=== PATIENT | female | born 1970 | race Caucasian/White ===

== ENCOUNTER 2023-06-20 14:20 | Outpatient (OUT) | payer BC, SELFPAY ==
[2023-06-20 15:00] LABS: Creatinine Urine Random 109.18 mg/dL (20.00-300.00); Microalbum Creatinine Ratio Ur 11.9 mg/g (0.0-29.9); Microalbumin Urine Random <1.3 mg/dL (<=30.0)
[2023-06-20 15:01] LABS: Basophils Percent Auto 0.4 % (0.2-2.0); Eosinophils Absolute Auto 0.1 10^3/uL (0.0-0.7); Eosinophils Percent Auto 1.5 % (0.9-7.0); Hematocrit 37.9 % (36.0-48.0); Hemoglobin 12.8 g/dL (12.0-16.0); Immature Granulocytes Abs Auto 0.03 10^3/uL (0.00-0.03); Immature Granulocytes Pct Auto 0.3 % (0.0-0.5); Lymphocytes Absolute Auto 2.9 10^3/uL (1.2-3.8); Lymphocytes Percent Auto 30.5 % (20.5-60.0); Mean Corpuscular HGB Conc 33.8 g/dL (29.9-35.2); Mean Corpuscular Hemoglobin 30.6 pg (26.7-34.0); Mean Corpuscular Volume 90.7 fL (81.0-99.0); Monocytes Absolute Auto 0.6 10^3/uL (0.3-0.8); Monocytes Percent Auto 5.7 % (1.7-12.0); Neutrophils Absolute Auto 5.9 10^3/uL (1.4-6.5); Neutrophils Percent Auto 61.6 % (43.0-75.0); Platelet Count 278 10^3/uL (150-450); Red Blood Count 4.18 10^6/uL (4.20-5.40); Red Cell Distribution Width 13.2 % (11.0-15.0); White Blood Count 9.6 10^3/uL (4.0-11.0)
[2023-06-20 15:11] LABS: Bilirubin Urine NEGATIVE (NEGATIVE); Blood Urine NEGATIVE (NEGATIVE); Clarity Urine CLEAR (CLEAR); Color Urine YELLOW (YELLOW); Glucose Urine UA NEGATIVE (NEGATIVE); Ketones Urine NEGATIVE (NEGATIVE); Leukocyte Esterase Urine TRACE (NEGATIVE); Nitrite Urine NEGATIVE (NEGATIVE); Protein Urine NEGATIVE (NEG/TRACE); Urobilinogen Urine 0.2 EU/dL (0.2-1.0); pH Urine 5.5 (5.0-9.0)
[2023-06-20 15:22] LABS: Urine Microscopic Indicated YES
[2023-06-20 15:23] LABS: Bacteria Urine MODERATE #/HPF (NONE SEEN); Mucus Urine TRACE (NONE SEEN); RBC Urine NONE SEEN #/HPF (0-2); Squamous Epithelial Cell Urine MODERATE #/LPF (NONE/RARE)
[2023-06-20 15:24] LABS: Urine Culture Indicated YES
[2023-06-20 15:56] LABS: Alanine Aminotransferase 29 U/L (14-59); Albumin Level 3.7 g/dL (3.4-5.0); Alkaline Phosphatase 92 U/L (46-116); Anion Gap 14.6; Aspartate Amino Transferase 22 U/L (15-37); BUN Creatinine Ratio 15.8; Bilirubin Total 0.4 mg/dL (0.2-1.0); Calcium 9.2 mg/dL (8.5-10.1); Chloride 104 mmol/L (98-107); Chol HDL Ratio 4.7; Cholesterol 226 mg/dL (<=200); Estimated GFR (African America >60 (>=60); Estimated GFR (Non-African Ame >60 (>=60); Globulin 3.6 g/dL; Glucose 79 mg/dL (74-106); HDL Cholesterol 48 mg/dL (40-60); Potassium 3.6 mmol/L (3.5-5.1); Sodium 142 mmol/L (136-145); Total Protein 7.3 g/dL (6.4-8.2); Triglycerides 227 mg/dL (<=150); VLDL CHOLESTEROL 45.4 mg/dL
[2023-06-20 16:21] LABS: Free T4 0.83 ng/dL (0.76-1.46)
== END 2023-06-20 14:21 | disposition home or self-care (01) ==
LOC: LAB 14:26
PROVIDERS: PCP Nurse Practitioner; Visit Provider Nurse Practitioner
DX: K21.00 Gastro-esophageal reflux disease with esophagitis, without bleeding (principal); E78.2 Mixed hyperlipidemia; E55.9 Vitamin D deficiency, unspecified; E03.9 Hypothyroidism, unspecified; I10 Essential (primary) hypertension; I73.9 Peripheral vascular disease, unspecified
CPT/HCPCS: 36415; 80053; 80061; 81001; 82043; 82306; 82570; 84439; 84443; 85025; 87086

== ENCOUNTER 2023-07-31 12:55 | Outpatient (OUT) | payer BC, SELFPAY ==
--- NOTE | 2023-07-31 13:00 | MM_ITS ---
Patient Name: CARYN VALERO MR#: [id number] : 1970 Exam Date: 07/31/2023 Ordering Doctor: QUINTEN Ridley CNP RADIOLOGY REPORT PROCEDURE: MM TOMOSYNTHESIS SCREENING BI COMPARISON: MG MAMM SCREEN 3D RENETTA CAD, 07/13/2022. MG MAMM SCREEN RENETTA W CAD, 02/13/2020. INDICATIONS: screening Calculator Name NCI Breast Cancer Risk Assessment Tool 5 Year Breast Cancer Risk 0.70% Lifetime Breast Cancer Risk 6.50% Personal Breast Cancer No Personal Ovarian Cancer No Treatments None Family Cancers Grandmother-paternal with colon cancer at age 76; Uncle-paternal with pancreas/lung cancer at age 50. LOCATION: [facility] BREAST COMPOSITION: Heterogeneously dense,which may obscure small masses. FINDINGS: DIAGNOSTIC CATEGORY 2--BENIGN FINDING. NO CHANGE FROM COMPARISON. Scattered benign-appearing calcifications are present. Scattered benign-appearing lymph nodes are present. RIGHT BREAST: No significant suspicious finding. LEFT BREAST: No significant suspicious finding. RECOMMENDATIONS: ROUTINE MAMMOGRAM AND CLINICAL EVALUATION IN 12 MONTHS. PLEASE NOTE: A NORMAL MAMMOGRAM DOES NOT EXCLUDE THE POSSIBILITY OF BREAST CANCER. A CLINICALLY SUSPICIOUS PALPABLE LUMP SHOULD BE BIOPSIED. Dictated by: Rodolfo Ann MD on 07/31/2023 at 15:25 Approved by: Rodolfo Ann MD on 07/31/2023 at 15:26
== END 2023-07-31 12:56 | disposition home or self-care (01) ==
LOC: MAMMO 12:56
PROVIDERS: PCP Nurse Practitioner; Visit Provider Nurse Practitioner
DX: Z12.31 Encounter for screening mammogram for malignant neoplasm of breast (principal); Z80.0 Family history of malignant neoplasm of digestive organs; Z80.1 Family history of malignant neoplasm of trachea, bronchus and lung
CPT/HCPCS: 77063; 77067

== ENCOUNTER 2024-01-23 14:18 | Outpatient (OUT) | payer BC, SELFPAY ==
[2024-01-23 14:47] LABS: Basophils Percent Auto 0.6 % (0.2-2.0); Eosinophils Absolute Auto 0.1 10^3/uL (0.0-0.7); Eosinophils Percent Auto 1.3 % (0.9-7.0); Hematocrit 41.3 % (36.0-48.0); Hemoglobin 13.6 g/dL (12.0-16.0); Immature Granulocytes Abs Auto 0.01 10^3/uL (0.00-0.03); Immature Granulocytes Pct Auto 0.1 % (0.0-0.5); Lymphocytes Absolute Auto 2.8 10^3/uL (1.2-3.8); Lymphocytes Percent Auto 39.9 % (20.5-60.0); Mean Corpuscular HGB Conc 32.9 g/dL (29.9-35.2); Mean Corpuscular Hemoglobin 31.1 pg (26.7-34.0); Mean Corpuscular Volume 94.3 fL (81.0-99.0); Mean Platelet Volume 8.8 fL (9.5-13.5); Monocytes Absolute Auto 0.5 10^3/uL (0.3-0.8); Monocytes Percent Auto 6.3 % (1.7-12.0); Neutrophils Absolute Auto 3.7 10^3/uL (1.4-6.5); Neutrophils Percent Auto 51.8 % (43.0-75.0); Platelet Count 242 10^3/uL (150-450); Red Blood Count 4.38 10^6/uL (4.20-5.40); Red Cell Distribution Width 12.4 % (11.0-15.0); White Blood Count 7.1 10^3/uL (4.0-11.0)
[2024-01-23 15:26] LABS: Alanine Aminotransferase 51 U/L (14-59); Albumin Globulin Ratio 1.2; Albumin Level 3.8 g/dL (3.4-5.0); Alkaline Phosphatase 87 U/L (46-116); Anion Gap 8.4; Aspartate Amino Transferase 30 U/L (15-37); BUN Creatinine Ratio 17.1; Bilirubin Total 0.6 mg/dL (0.2-1.0); Calcium 9.2 mg/dL (8.5-10.1); Carbon Dioxide 30.2 mmol/L (21.0-32.0); Chloride 103 mmol/L (98-107); Chol HDL Ratio 4.3; Cholesterol 210 mg/dL (<=200); Estimated GFR (African America >60 (>=60); Estimated GFR (Non-African Ame >60 (>=60); Globulin 3.2 g/dL; Glucose 91 mg/dL (74-106); HDL Cholesterol 49 mg/dL (40-60); Potassium 3.6 mmol/L (3.5-5.1); Sodium 138 mmol/L (136-145); Thyroid Stimulating Hormone 2.376 uIU/mL (0.358-3.740); Triglycerides 144 mg/dL (<=150); VLDL CHOLESTEROL 28.8 mg/dL
[2024-01-23 15:38] LABS: Free T4 0.85 ng/dL (0.76-1.46)
== END 2024-01-23 14:19 | disposition home or self-care (01) ==
LOC: LAB 14:19
PROVIDERS: PCP Nurse Practitioner; Visit Provider Nurse Practitioner
DX: I10 Essential (primary) hypertension (principal); E03.9 Hypothyroidism, unspecified; I73.9 Peripheral vascular disease, unspecified; E55.9 Vitamin D deficiency, unspecified
CPT/HCPCS: 36415; 80053; 80061; 82306; 84439; 84443; 85025

== ENCOUNTER 2024-01-30 12:58 | Outpatient (OUT) | payer BC, SELFPAY ==
--- NOTE | 2024-01-30 13:00 | VEIN_ITS ---
The [address] [address] Patient Name: CARYN VALERO MRN: [id number] date: 1970 Sex: F Assigned Patient Location: Current Patient Location: LAB Accession/Order Number: [id number] Exam Date: 01/30/2024 13:01 Report Date: 01/30/2024 14:31 At the request of: SHAWN GRAHAM Procedure: VC SEGMENTAL PRESSURES EXAM: VC SEGMENTAL PRESSURES HISTORY: I73.9. Peripheral vascular disease. COMPARISON: None. TECHNIQUE: Segmental pressures were obtained with ABIs. FINDINGS: Right DALTON 1.09. Left DALTON 1.15. No pressure gradients were noted. Toe brachial indices are normal. VEIN/VC SEGMENTAL PRESSURES IMPRESSION: Normal resting ABIs. No pressure gradients noted. Electronically authenticated by: Morenita WHITING Date: 01/30/2024 14:31
--- OUTSIDE RECORDS SUMMARY | 2024-01-30 13:12 | XMS_ITS | CCD ---
Author Organization [facility] Care Team Providers Care Relief Map Modeler Name Role Phone Joyce BENEFITS REPRESENTATIVE, Stephany R Unavailable Joyce BENEFITS REPRESENTATIVE, Stephany R Primary Care Provider Ting Camilo MD Unavailable Aichholz BENEFITS REPRESENTATIVE, Renetta Rosemary Primary Care Provider [phone] Joyce BENEFITS REPRESENTATIVE, Stephnay R Unavailable Ting Camilo MD Unavailable Aichholz BENEFITS REPRESENTATIVE, Renetta Rosemary Primary Care Provider [phone] Joyce BENEFITS REPRESENTATIVE, Stephany R Unavailable Aichholz BENEFITS REPRESENTATIVE, Renetta Rosemary Primary Care Provider [phone] Joyce BENEFITS REPRESENTATIVE, Stephany R Unavailable Torres [place], Ting Tim Unavailable Aichholz BENEFITS REPRESENTATIVE, Renetta Rosemary Primary Care Provider Aichholz, Renetta J Primary Care Provider DO Terrell Mc Emergency Provider BARNEY Lala Emergency Provider DR GURMEET PUGH V Consulting Unavailable AICHHOLZ, BENEFITS REPRESENTATIVE RENETTA Primary Care Unavailable AICHHOLZ, BENEFITS REPRESENTATIVE RENETTA Attending Unavailable AICHHOLZ, BENEFITS REPRESENTATIVE RENETTA Admitting Unavailable AICHHOLZ, BENEFITS REPRESENTATIVE RENETTA Consulting Unavailable AICHHOLZ, BENEFITS REPRESENTATIVE RENETTA Consulting Unavailable AICHHOLZ, BENEFITS REPRESENTATIVE RENETTA Primary Care Unavailable AICHHOLZ, BENEFITS REPRESENTATIVE RENETTA Attending Unavailable AICHHOLZ, BENEFITS REPRESENTATIVE RENETTA Admitting Unavailable DR GURMEET PUGH V Consulting Unavailable AICHHOLZ, BENEFITS REPRESENTATIVE RENETTA Primary Care Unavailable AICHHOLZ, BENEFITS REPRESENTATIVE RENETTA Attending Unavailable AICHHOLZ, BENEFITS REPRESENTATIVE RENETTA Admitting Unavailable AICHHOLZ, BENEFITS REPRESENTATIVE RENETTA Consulting Unavailable DR GURMEET PUGH V Consulting Unavailable AICHHOLZ, BENEFITS REPRESENTATIVE RENETTA Primary Care Unavailable AICHHOLZ, BENEFITS REPRESENTATIVE RENETTA Attending Unavailable AICHHOLZ, BENEFITS REPRESENTATIVE RENETTA Admitting Unavailable AICHHOLZ, BENEFITS REPRESENTATIVE RENETTA Consulting Unavailable AICHHOLZ, BENEFITS REPRESENTATIVE RENETTA Consulting Unavailable AICHHOLZ, BENEFITS REPRESENTATIVE RENETTA Primary Care Unavailable AICHHOLZ, BENEFITS REPRESENTATIVE RENETTA Attending Unavailable AICHHOLZ, BENEFITS REPRESENTATIVE RENETTA Admitting Unavailable DR FIOR TORRES Consulting Unavailable AICHHOLZ, BENEFITS REPRESENTATIVE RENETTA Consulting Unavailable AICHHOLZ, BENEFITS REPRESENTATIVE RENETTA Primary Care Unavailable AICHHOLZ, BENEFITS REPRESENTATIVE RENETTA Attending Unavailable AICHHOLZ, BENEFITS REPRESENTATIVE RENETTA Admitting Unavailable DR FIOR TORRES Consulting Unavailable AICHHOLZ, BENEFITS REPRESENTATIVE RENETTA Consulting Unavailable AICHHOLZ, BENEFITS REPRESENTATIVE RENETTA Primary Care Unavailable AICHHOLZ, BENEFITS REPRESENTATIVE RENETTA Attending Unavailable AICHHOLZ, BENEFITS REPRESENTATIVE RENETTA Admitting Unavailable AICHHOLZ, BENEFITS REPRESENTATIVE RENETTA Consulting Unavailable AICHHOLZ, BENEFITS REPRESENTATIVE RENETTA Primary Care Unavailable AICHHOLZ, BENEFITS REPRESENTATIVE RENETTA Attending Unavailable AICHHOLZ, BENEFITS REPRESENTATIVE RENETTA Admitting Unavailable AICHHOLZ, BENEFITS REPRESENTATIVE RENETTA Consulting Unavailable AICHHOLZ, BENEFITS REPRESENTATIVE RENETTA Primary Care Unavailable AICHHOLZ, BENEFITS REPRESENTATIVE RENETTA Referring Unavailable AICHHOLZ, BENEFITS REPRESENTATIVE RENETTA Attending Unavailable AICHHOLZ, BENEFITS REPRESENTATIVE RENETTA Admitting Unavailable AICHHOLZ, BENEFITS REPRESENTATIVE RENETTA Consulting Unavailable AICHHOLZ, BENEFITS REPRESENTATIVE RENETTA Primary Care Unavailable AICHHOLZ, BENEFITS REPRESENTATIVE RENETTA Referring Unavailable AICHHOLZ, BENEFITS REPRESENTATIVE RENETTA Attending Unavailable AICHHOLZ, BENEFITS REPRESENTATIVE RENETTA Admitting Unavailable ANH LÓPEZ Consulting Unavailable ANH LÓPEZ Attending Unavailable ANH LÓPEZ Admitting Unavailable AICHHOLZ, BENEFITS REPRESENTATIVE RENETTA Primary Care Unavailable Timmy Chavez Unavailable AICHHOLZ, RENETTA ROSEMARY Primary Care Unavailable TING CAMILO Attending Unavailable AICHHOLZ, RENETTA ROSEMARY Primary Care Unavailable MILER, FERMIN Referring Unavailable AICHHOLZ, RENETTA ROSEMARY Primary Care Unavailable MILER, FERMIN Referring Unavailable AICHHOLZ, RENETTA ROSEMARY Primary Care Unavailable AICHHOLZ, RENETTA ROSEMARY Primary Care Unavailable VALENTINA SINGLETARY Attending Unavailable AICHHOLZ, RENETTA ROSEMARY Primary Care Unavailable TING CAMILO Referring Unavailable KARTHIK ZARATE Attending Unavailab le AICHHOLZ, RENETTA ROSEMARY Primary Care Unavailable AICHHOLZ, RENETTA ROSEMARY Referring Unavailable BRAD BONE JR Attending Unavailable AICHHOLZ, RENETTA ROSEMARY Primary Care Unavailable AICHHOLZ, RENETTA ROSEMARY Primary Care Unavailable FERMIN BEGUM Referring Unavailable AICHHOLZ, RENETTA ROSEMARY Primary Care Unavailable AICHHOLZ, RENETTA ROSEMARY Primary Care Unavailable TING CAMILO Referring Unavailable AICHHOLZ, RENETTA ROSEMARY Primary Care Unavailable TING CAMILO Attending Unavailable VIK SUTHERLAND Referring Unavailable VIK SUTHERLAND Attending Unavailable JOYCE, STEPHANY R Primary Care Unavailable FABIEN GONZALEZ Attending Unavailable AICHHOLZ, RENETTA ROSEMARY Primary Care Unavailable AICHHOLZ, RENETTA ROSEMARY Primary Care Unavailable AICHHOLZ, RENETTA ROSEMARY Primary Care Unavailable YANELIS FRENCH Attending Unavailable FABIEN GONZALEZ Referring Unavailable KOKO, VIK Referring Unavailable JOYCE, STEPHANY R Primary Care Unavailable TING CAMILO Attending Unavailable AICHHOLZ, RENETTA ROSEMARY Primary Care Unavailable MIKEY PALOMO Referring Unavailable AICHHOLZ, RENETTA ROSEMARY Primary Care Unavailable MIKEY PALOMO Attending Unavailable TING CAMILO Referring Unavailable AICHHOLZ, RENETTA ROSEMARY Primary Care Unavailable AICHHOLZ, RENETTA ROSEMARY Primary Care Unavailable FABIEN GONZALEZ Referring Unavailable AICHHOLZ, RENETTA ROSEMARY Primary Care Unavailable CARMEN LOMBARDI Attending Unavailable AICHHOLZ, RENETTA ROSEMARY Primary Care Unavailable FERMIN BEGUM Referring Unavailable AICHHOLZ, RENETTA ROSEMARY Primary Care Unavailable AICHHOLZ, RENETTA ROSEMARY Referring Unavailable FERMIN BEGUM Attending Unavailable Joyce SHIPLEY, Stephany R Primary Care Provider Keyur Quarles MD Primary Care Provider [phone] Khai CUSTOMER SERVICE DISPATCHER, Renetta Unavailable Khai, Renetta J Primary Care Provider DEMETRIS Sofia Emergency Provider [phone] Jose Sofia Attending Unavailable Jose Sofia Admitting Unavailable Aichholz, Renetta J Primary Care Unavailable Aichholz DEMETRIS-QUINTEN, Renetta Rosemary Primary Care Provider MIKEY WARE Attending Unavailable RENETTA RIDLEY Primary Care Unavailable RENETTA RIDLEY Attending Unavailable RENETTA RIDLEY Attending Unavailable RENETTA RIDLEY Attending Unavailable RENETTA RIDLEY Attending Unavailable Allergies Allergy Classification Reported Allergen(s) Allergy Type Date of Onset Reaction(s) Facility (20 sources) amLODIPine; Translations: [AMLODIPINE] Drug Allergy 0 Swelling [facility] (10 sources) Penicillins; Translations: [PENICILLINS] Propensity to adverse reactions 2 Rash [facility] Work Phone: (20 sources) Penicillins Propensity to adverse reactions 2 [facility] Work Phone: (1 source) amLODIPine Drug Allergy 1 [facility] (1 source) Penicillins Drug allergy (disorder) 3 [facility] Repository (4 sources) penicillAMINE Drug Allergy 4 Unknown, Unknown Reaction [facility] (4 sources) buPROPion Drug Allergy 4 GI intolerance [facility] Work Phone: (4 sources) Penicillins Propensity to adverse reactions 3 [facility] (4 sources) venlafaxine Drug Allergy 4 GI intolerance [facility] (1 source) amLODIPine Drug Allergy [address] [facility] Repository (1 source) penicillAMINE Drug Allergy [address] [facility] Repository (1 source) Penicillins Drug allergy (disorder) [address] [facility] Repository Medications Current Medications Medication Drug Class(es) Dates Sig (Normalized) Sig (Original) ALPRAZolam 0.5 mg oral tablet (20 sources) Benzodiazepine Start: 06-20-2023 End: 07-20-2023 take 1 tablet by mouth twice daily as needed ALPRAZolam (Xanax) 0.5 mg tablet Take 1 tablet (0.5 mg) by mouth 2 times a day as needed. 06/20/2023 Active Start: 08-23-2021 take 1 tablet by [place] three times daily Alprazolam (Xanax) 0.5 mg Tablet Active 0.5 MG PO Three times daily August 23, 2021 12:00am Comment on above: Take 0.5 mg by mouth three times daily as needed. aspirin 81 mg delayed release oral tablet (20 sources) Platelet Aggregation Inhibitor, Nonsteroidal Anti-inflammatory Drug Start: 04-06-2020 End: 06-20-2023 take 81 mg by mouth once daily Aspirin Active 81 MG PO Daily April 06, 2020 1:00am Aspirin 81 Activ e Comment on above: Take 81 mg by mouth once daily. atorvastatin 40 mg oral tablet (20 sources) HMG-CoA Reductase Inhibitor Start: 02-29-20 End: 06-20-19 take 40 mg by mouth once daily Atorvastatin Active 40 MG PO Daily February 28, 2019 12:00am Comment on above: Take 1 tablet by [place] daily at bedtime. cholecalciferol 0.025 mg oral capsule (20 sources) Vitamin D Start: 03-04-20 take 1 capsule by mouth once daily Cholecalciferol (Vitamin D3) (Vitamin D3) 1,000 unit Capsule Active 1000 UNIT PO Daily March 04, 2019 12:00am take 1 capsule by mouth once [place] cholecalciferol (Vitamin D-3) 25 MCG (1000 UT) tablet Take 1 capsule by mouth once daily. Active Comment on above: Take 1 capsule [facility] once daily. clopidogrel 75 mg oral tablet (20 sources) P2Y12 Platelet Inhibitor Start: 9 End: 4 take 75 mg by mouth once daily Clopidogrel Active 75 MG PO Daily April 06, 2020 1:00am Comment on above: TAKE 1 TABLET BY [place] ONCE DAILY FOR 14 DAYS ezetimibe 10 mg oral tablet (20 sources) Dietary Cholesterol Absorption Inhibitor Start: 0 End: 4 take 10 mg by mouth once daily Ezetimibe Active 10 MG PO Daily April 06, 2020 1:00am Zetia Active Comment on above: Take 1 tablet by [place] once daily. linaclotide 0.072 mg oral capsule (5 sources) Guanylate Cyclase-C Agonist Start: 0 End: 2 take 1 capsule by mouth once daily Linaclotide (Linzess) 72 mcg capsule Active 290 MCG PO Daily April 06, 2020 1:00am Start: 12-04-2019 End: 02-10-2020 LINZESS 145 mcg capsule 72 m cg. 0 12/04/2019 02/10/2020 Discontinued (Other) Comment on above: Take 1 capsule by [facility] once daily. 72 mcg. meclizine hydrochloride 12.5 mg oral tablet (3 sources) Antiemetic Start: 3 Meclizine Active 12.5 MG PO 2-3 TIMES PER DAY May 12, 2022 1:00am Comment on above: Take 1 tablet by [facility] as needed. omeprazole 20 mg delayed release oral tablet (20 sources) Proton Pump Inhibitor Start: 2 take 40 mg by mouth twice daily Omeprazole Active 40 MG PO Twice daily August 23, 2021 8:48am Start: 08-06-2020 omeprazole (CA ILOSEC) 20 mg capsule 40 mg once daily. 0 08/06/2020 Active Start: 04-06-2020 End: 08-23-2021 take 20 mg by mouth twice daily Omeprazole Discontinued 20 MG PO Twice daily 60 April 06, 2020 2:58pm August 23, 2021 8:48am Start: 04-06-2020 End: 04-06-2020 take 20 mg by mouth once daily Omeprazole Discontinued 20 MG PO Daily April 06, 2020 1:00am April 06, 2020 2:59pm Comment on above: 40 mg once daily. ondansetron 4 mg disintegrating oral tablet (6 sources) Serotonin-3 Receptor Antagonist Start: 3 take 4 mg by mouth every eight hours Ondansetron Hcl Active 4 MG PO Q8H 15 5 August 03, 2022 12:00am Start: 06-25-2022 take 4 mg by mouth f our times daily Ondansetron Active 4 MG PO Four times daily June 25, 2022 1:00am Start: 11-13-2021 take 4 mg by mouth e very six hours Ondansetron Active 4 MG PO Every 6 hours August 19, 2023 12:00am prazosin 5 mg oral capsule (5 sources) alpha-Adrenergic Anabela Start: 04-06-2020 take 1 mg by mouth once daily in the evening Prazosin Active 1 MG PO Every evening April 06, 2020 1:00am Start: 05-21-2019 End: 06-15-2021 take 2 capsules by mouth once daily at bedtime prazosin (MINIPRESS) 1 mg cap Take 2 mg by mouth daily at bedtime. 0 05/21/2019 06/15/2021 Discontinued (Other) Comment on above: Take 2 mg by mouth d aily at bedtime. pregabalin 150 mg oral capsule (10 sources) Start: 08-24-2021 take 1 capsule by mouth twice daily Pregabalin (Lyrica) 150 mg Capsule Active 150 MG PO Twice daily 60 August 24, 2021 2:45pm Start: 08-10-2021 End: 08-10-2022 take 1 capsule by mouth three times daily Pregabalin (Lyrica) 150 mg Capsule Discontinued 150 MG PO Three times daily August 23, 2021 12:00am August 24, 2021 2:45pm End: 06-15-2021 take 1 capsule by mouth twice daily pregabalin (LYRICA) 50 mg capsule Take 50 mg by mouth twice daily. 0 06/15/2021 Discontinued (Other) End: 08-10-2021 take 1 capsule by mouth twice daily pregabalin (LYRICA) 100 mg capsule Take 100 mg by mouth twice daily. 0 08/10/2021 Discontinued Comment on above: Take 1 tab PO TID Take 100 mg by mouth twice daily. Take 50 mg by mouth twice daily. promethazine hydrochloride 25 mg oral tablet (3 sources) Phenothiazine Start: 06-25-19 take 25 mg by mouth four times daily Promethazine Active 25 MG PO Four times daily June 25, 2022 1:00am Comment on above: Take 1 tablet by [facility] as needed. Trulance 3mg (3 sources) take 1 tablet by mouth once daily Trulance 3mg 1 tablet po once a day Active Completed/Discontinued Medications Medication Drug Class(es) Dates Sig (Normalized) Sig (Original) 12 hr buPROPion hydrochloride 100 mg extended release oral tablet (20 sources) Aminoketone Start: 08-07-2022 take 1 tablet by mouth twice daily buPROPion SR (WELLBUTRIN SR) 100 mg 12 hr tablet Take 1 tablet by mouth twice daily. 0 08/07/2022 Active Start: 08-23-2021 End: 08-23-2021 take 2 tablets by mouth twice daily Bupropion Hcl (Wellbutrin) 100 mg Tablet Discontinued 200 MG PO Twice daily August 23, 2021 12:00am August 23, 2021 3:53pm Start: 03-01-2021 take 200 mg by mouth twice daily Bupropion Hcl Active 200 MG PO Twice daily August 23, 2021 12:00am End: 06-20-2023 take 1 tablet by mouth once daily buPROPion SR (Wellbutrin SR) 200 MG 12 hr tablet Take 200 mg by mouth 1 (one) time each day Do not crush, chew, or split. 0 06/20/2023 Discontinued (Therapy completed) take 1 tablet by [place] th once daily buPROPion HCl ER (SR) 100 MG TAKE 1 TABLET BY MOUTH ONCE DAILY Oral for 30 Active Comment on above: Take 200 mg by mouth twice daily. Take 1 tablet by [place] th twice daily. clonazePAM 0.5 mg oral tablet (3 sources) Benzodiazepine Start: 9 End: 1 take 1 tablet by mouth twice daily clonazePAM (KLONOPIN) 0.5 mg tablet Take 0.5 mg by mouth twice daily. 2 03/02/2019 08/12/2020 Discontinued (Other) Start: 02-28-2019 End: 08-23-2021 take 0.5 mg by mouth once daily Clonazepam Discontinued 0.5 MG PO Daily February 28, 2019 12:00am August 23, 2021 8:49am Comment on above: Take 0.5 mg by mouth twice daily. cloNIDine hydrochloride 0.1 mg oral tablet (20 sources) Central alpha-2 Adrenergic Agonist Start: 3 End: 4 take 1 tablet by mouth every eight hours as needed cloNIDine HCl (CATAPRES) 0.1 mg tablet Take 1 tablet by mouth every 8 hours as needed (take if systolic BP>170). 30 tablet 5 05/12/2022 Active Comment on above: Take 1 tablet by [place] th every 8 hours as needed (take if systolic BP>170). escitalopram 10 mg oral tablet (2 sources) Serotonin Reuptake Inhibitor Start: 9 End: 0 take 10 mg by mouth once daily Escitalopram Oxalate Discontinued 10 MG PO Daily February 28, 2019 12:00am April 06, 2020 1:26pm estrogens, conjugated (fdc) 0.45 mg oral tablet (20 sources) Estrogen Start: End: take 0.45 mg by mouth once daily Conjugated Estrogens Discontinued 0.45 MG PO Daily February 28, 2019 12:00am August 23, 2021 8:49am conjugated estro gens (PREMARIN) vaginal cream Premarin Active Comment on above: Take 0.45 mg by mout h once daily. gabapentin 100 mg oral capsule (2 sources) Anti-epileptic Agent Start: 04-06-2020 End: 08-23-2021 take 100 mg by mouth once daily Gabapentin Discontinued 100 MG PO Daily April 06, 2020 1:00am August 23, 2021 8:49am levothyroxine sodium 0.05 mg oral tablet (20 sources) l-Thyroxine Start: 11-01-2021 End: 06-20-2023 SYNTHROID 50 mcg tablet Start: 08-24-2021 take 75 ug by mouth once daily Levothyroxine Active 75 MCG PO Daily at 0630 30 August 24, 2021 12:00am take 1 tablet by [place] th once daily in the morning Levothyroxine Sodium 50 MCG 1 tablet in the morning on an empty stomach Orally Once a day Active lisinopril 2.5 mg oral tablet (20 sources) Angiotensin Converting Enzyme Inhibitor Start: 08-07-2022 take 1.25 mg by mouth once daily in the evening lisinopril 2.5 mg tablet Take 2 tablets by mouth every morning. And 1.25mg qpm 90 tablet 5 08/07/2022 Active Start: 07-24-2022 End: 08-07-2022 take 2 tablets by mouth once daily in the morning lisinopril 2.5 mg tablet Take 2 tablets by mouth every morning. And 2.5mg qpm 90 tablet 5 07/24/2022 08/07/2022 Discontinued (Adjust Sig - Block E-Cancel) Start: 07-04-2022 End: 07-24-2022 take 1 tablet by mouth once daily in the morning lisinopril (ZESTRIL, PRINIVIL) 5 mg tablet Take 1 tablet by mouth every morning. And 2.5mg qpm 0 07/04/2022 07/24/2022 Discontinued Start: 05-12-2022 take 10 mg by mouth twice thomas y Lisinopril Active 10 MG PO Twice daily May 12, 2022 2:46am Start: 05-09-2022 End: 06-22-2022 take 1 tablet by mouth once daily at bedtime lisinopril (ZESTRIL, PRINIVIL) 10 mg tablet Take 1 tablet by mouth daily at bedtime. 0 05/09/2022 06/22/2022 Discontinued (Adjust Sig - Block E-Cancel) Start: 03-23-2022 End: 06-20-2023 take 1 tablet by mouth twice daily lisinopril (ZESTRIL, PRINIVIL) 10 mg tablet Take 1 tablet by mouth twice daily. 0 06/22/2022 07/04/2022 Discontinued (Adjust Sig - Block E-Cancel) Start: 03-23-2022 End: 03-23-2022 take 2 tablets by mouth once daily lisinopril (ZESTRIL, PRINIVIL) 5 mg tablet Take 2 tablets by mouth once daily. 90 tablet 3 03/23/2022 03/23/2022 Discontinued Start: 12-02-2019 End: 06-22-2022 take 5 mg by mouth once daily Lisinopril Discontinued 5 MG PO Daily April 06, 2020 1:00am May 12, 2022 2:46am Comment on above: Take 1 tablet by [place] th once daily. Take 1 tablet by [place] th twice daily. Take 2 tablets by mo uth once daily. Take 1 tablet by [place] th daily at bedtime. Take 1 tablet by [place] th every morning. And 2.5mg qpm Take 2 tablets by mo uth every morning. And 2.5mg qpm Take 2 tablets by mo uth every morning. And 1.25mg qpm lubiprostone 0.024 mg oral capsule (7 sources) Chloride Channel Activator Start: End: take 1 capsule by mouth every twelve hours lubiprostone (AMITIZA) 24 mcg capsule Take 1 tablet by mouth q 12 HR. 0 06/28/2022 Active Start: 06-28-2022 take 1 capsule by mo uth twice daily at mealtime Lubiprostone 24 MCG 1 capsule with food and water Orally Twice a day for 90 days Jun, Active Comment on above: Take 1 tablet by [place] th q 12 HR. Naltrexone (20 sources) Opioid Antagonist Start: 2 take 1 capsule by mouth once daily naltrexone capsule 4.5 mg (CPD) Indications: Neuralgia and neuritis , CAD, multiple vessel , RAJESH (generalized anxiety disorder) Take 1 capsule by mouth once daily. 30 capsule 5 2021 Active Comment on above: Take 1 capsule [facility] once daily. pantoprazole 40 mg delayed release oral tablet (20 sources) Proton Pump Inhibitor Start: 3 End: 4 take 1 tablet by mouth every twelve [address] (PROTONIX) 40 mg tablet Take 1 tablet by mouth q 12 HR. 0 06/28/2022 Active Start: 06-28-2022 take 1 tablet by [place] th every twelve hours Pantoprazole Sodium 40 MG 1 tablet Orally twice a day for 90 days Jun, Active Start: 12-21-2021 take 1 tablet by [place] th once daily pantoprazole DR (PROTONIX) 40 mg tablet Take 40 mg by mouth once daily. 0 12/21/2021 Active Comment on above: Take 40 mg by mouth once daily. Take 1 tablet by [place] th q 12 HR. plecanatide 3 mg oral tablet (3 sources) End: 4 take 1 tablet by mouth in the morning plecanatide (Trulance) tablet tablet Take 3 mg by mouth in the morning. 0 06/20/2023 Discontinued (Side effects) predniSONE 20 mg oral tablet (2 sources) Start: 9 End: 0 take 40 mg by mouth once daily at mealtime Prednisone Discontinued 40 MG PO Daily 8 March 06, 2019 12:00am April 06, 2020 1:26pm administer with food or milk sucralfate 1000 mg oral tablet (2 sources) Aluminum Complex Start: 3 sucralfate (CARAFATE) 1 gram tablet Take 1 tablet by mouth as needed. 0 08/04/2022 Active Comment on above: Take 1 tablet by [place] th as needed. terbinafine 250 mg oral tablet (20 sources) Allylamine Antifungal End: 4 take 1 tablet by mouth in the morning terbinafine (LamISIL) 250 MG tablet Take 250 mg by mouth in the morning. 0 06/20/2023 Discontinued (Side effects) Terbinafine Acti ve Comment on above: Take 250 mg by mouth once daily. tiZANidine 4 mg oral tablet (20 sources) Central alpha-2 Adrenergic Agonist End: 06-20-2023 tiZANidine (Zanaflex) 4 MG tablet Take 4 mg by mouth every 12 (twelve) hours if needed for muscle spasms 0 06/20/2023 Discontinued (Side effects) take 1 capsule by [facility] every twelve hours as needed tiZANidine HCl 4 mg capsule Take 4 mg by mouth twice daily as needed. 0 Active Comment on above: Take 4 mg by mouth t wice daily as needed. traMADol hydrochloride 50 mg oral tablet (2 sources) Opioid Agonist Start: 9 End: 0 Tramadol Discontinued 50 MG PO every 6 to 8 hours 20 March 05, 2019 12:00am April 06, 2020 1:26pm vortioxetine 10 mg oral tablet (3 sources) Start: 0 End: 2 take 1 tablet by mouth once daily Vortioxetine (Trintellix) 10 mg tablet Discontinued 10 MG PO Daily April 06, 2020 1:00am August 23, 2021 8:49am End: 03-22-2021 take 2 tablets by mouth once daily, then take 1 tablet by mouth once vortioxetine (TRINTELLIX) 10 mg tab Take 20 mg by mouth once daily. Patient currently taking 10 mg tablets x2 for 20mg per dose 0 03/22/2021 Discontinued (Other) Comment on above: Take 20 mg by mouth once daily. Patient currently taking 10 mg tablets x2 for 20mg per dose Problems Active Problems Problem Classification Problem Date Documented Da te Episodic/Chronic Abdominal pain (10 sources) Unspecified abdominal pain; Translations: [Epigastric pain] Onset: 2 Episodic Acute and unspecified renal failure (2 sources) Injury of kidney; Translations: [Acute kidney failure, unspecified] 08-23-2021 Episodic Allergic reactions (2 sources) Allergic reaction; Translations: [Allergy, unspecified, initial encounter] 03-06-2019 Episodic Anal and rectal conditions (4 sources) Other specified diseases of anus and rectum; Translations: [Anal or rectal pain] Onset: 4 06-20-2023 Episodic Anxiety disorders (20 sources) Generalized anxiety disorder; Translations: [Generalized anxiety disorder] Onset: 0 Chronic Aortic; peripheral; and visceral artery aneurysms (1 source) Abdominal aortic aneurysm without rupture; Translations: [Abdominal aortic aneurysm (AAA) without rupture, unspecified part] Chronic Cardiac and circulatory congenital anomalies (4 sources) Congenital malposition of subclavian artery; Translations: [Other specified congenital malformations of peripheral vascular system] Onset: 4 06-20-2023 Chronic Cardiac dysrhythmias (4 sources) Tachycardia; Translations: [Tachycardia, unspecified] Onset: 3 Episodic Chronic kidney disease (1 source) Chronic kidney disease stage 3A ; Translations: [Chronic renal failure, stage 3a (HCC)] 04-28-2021 Chronic Conditions associated with dizziness or vertigo (14 sources) Dizziness; Translations: [Dizziness and giddiness] Onset: 2 Episodic Coronary atherosclerosis and other heart disease (4 sources) Multi vessel coronary artery disease; Translations: [Atherosclerotic heart disease of [place] coronary artery without angina pectoris] Onset: 2 Chronic Deficiency and other anemia (2 sources) Anemia; Translations: [Anemia, unspecified] 03-06-2019 Episodic Disorders of lipid metabolism (20 sources) Dyslipidemia; Translations: [Hyperlipidemia, unspecified] Onset: 9 03-19-2019 Chronic Diverticulosis and diverticulitis (4 sources) Diverticulitis; Translations: [Diverticulitis of intestine, part unspecified, without perforation or abscess without bleeding] Onset: 4 06-20-2023 Chronic Esophageal disorders (12 sources) Mahajan's esophagus; 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] Onset: 4 06-20-2023 Chronic Essential hypertension (20 sources) Essential hypertension; Translations: [Essential (primary) hypertension] Onset: 9 03-19-2019 Chronic Fluid and electrolyte disorders (2 sources) Dehydration; Translations: [Hypovolemia] Onset: 2 08-03-2022 Episodic Gastritis and duodenitis (9 sources) Duodenitis; Translations: [Duodenitis without bleeding] Episodic Genitourinary symptoms and ill-defined conditions (4 sources) Incontinence; Translations: [Mixed incontinence] Onset: 4 06-20-2023 Chronic Hemorrhoids (20 sources) Hemorrhoids; Translations: [Unspecified hemorrhoids] Onset: 0 04-14-2020 Episodic Hypertension with complications and secondary hypertension (1 source) Renovascular hypertension; Translations: [Renovascular hypertension] 04-28-2021 Chronic Malaise and fatigue (20 sources) Malaise and fatigue; Translations: [Other malaise] Onset: 2 08-31-2003 Episodic Menopausal disorders (5 sources) Premature menopause; Translations: [Asymptomatic premature menopause] Onset: 4 Chronic Mood disorders (4 sources) Acute depression; Translations: [Depression, acute] Onset: 4 06-20-2023 Chronic Nausea and vomiting (9 sources) Nausea and vomiting; Translations: [Nausea with vomiting, unspecified] Onset: 4 Episodic Nonspecific chest pain (20 sources) Chest pain; Translations: [Chest pain, unspecified] Onset: 9 01-27-2020 Episodic Nutritional deficiencies (6 sources) Vitamin D deficiency; Translations: [Vitamin D deficiency, unspecified] Onset: 4 06-20-2023 Chronic Occlusion or stenosis of precerebral arteries (20 sources) Bilateral stenosis of carotid arteries; Translations: [Occlusion and stenosis of bilateral carotid arteries] Onset: 9 Chronic Other acquired deformities (4 sources) Retrolisthesis; Translations: [Spondylolisthesis, site unspecified] Onset: 4 06-20-2023 Episodic Other and ill-defined cerebrovascular disease (1 source) Cerebral arterial aneurysm; Translations: [Cerebral aneurysm, nonruptured] 01-07-2020 Chronic Other and unspecified benign neoplasm (3 sources) Hyperplastic polyp of large intestine; Translations: [Polyp of colon] Episodic Other circulatory disease (3 sources) Disorder of carotid artery; Translations: [Disorder of arteries and arterioles, unspecified] Chronic Other circulatory disease (1 source) Disorder of artery; Translations: [Disorder of arteries and arterioles, unspecified] 05-02-2021 Chronic Other circulatory disease (1 source) Subclavian artery stenosis; Translations: [Stricture of artery] 05-02-2021 Chronic Other circulatory disease (4 sources) History of cardiovascular surgery; Translations: [Presence of other vascular implants and grafts] Onset: 4 06-20-2023 Chronic Other circulatory disease (5 sources) Low blood pressure; Translations: [Hypotension, unspecified] Episodic Other circulatory disease (4 sources) Vascular disorder; Translations: [Unspecified disorder of circulatory system] Onset: 4 06-20-2023 Episodic Other connective tissue disease (3 sources) Neuropathy; Translations: [Neuralgia and neuritis, unspecified] Episodic Other connective tissue disease (4 sources) Fibromyalgia; Translations: [Fibromyalgia] Onset: 4 06-20-2023 Episodic Other diseases of kidney and ureters (1 source) Acquired renal cystic disease; Translations: [Cyst of kidney, acquired] Episodic Other disorders of stomach and duodenum (3 sources) Indigestion; Translations: [Functional dyspepsia] Episodic Other ear and sense organ disorders (1 source) Hearing loss; Translations: [Other specified hearing loss, unspecified ear] Chronic Other ear and sense organ disorders (12 sources) Asymmetrical sensorineural hearing loss; Translations: [Sensorineural hearing loss, bilateral] Onset: 3 Chronic Other ear and sense organ disorders (1 source) Other specified hearing loss, unspecified ear; Translations: [Other specified hearing loss, unspecified ear] Onset: 3 Chronic Other ear and sense organ disorders (16 sources) Bilateral tinnitus; Translations: [Tinnitus, bilateral] Onset: 3 Episodic Other gastrointestinal disorders (7 sources) Irritable bowel syndrome characterized by constipation; Translations: [Irritable bowel syndrome with constipation] Onset: 4 06-20-2023 Chronic Other gastrointestinal disorders (1 source) Abdominal bloating; Translations: [Abdominal distension (gaseous)] Episodic Other gastrointestinal disorders (4 sources) Constipation; Translations: [Other constipation] Episodic Other gastrointestinal disorders (2 sources) Constipation, unspecified Episodic Other injuries and conditions due to external causes (2 sources) Hypothermia; Translations: [Hypothermia, initial encounter] 08-23-2021 Episodic Other lower respiratory disease (4 sources) Cough; Translations: [Cough in adult] Onset: 4 06-20-2023 Episodic Other nervous system disorders (2 sources) Arachnoid cyst; Translations: [Cerebral cysts] Chronic Other nervous system disorders (4 sources) Chronic pain syndrome; Translations: [Chronic pain syndrome] Onset: 4 06-20-2023 Chronic Other nervous system disorders (1 source) Impairment of balance; Translations: [Other abnormalities of gait and mobility] Episodic Other nervous system disorders (4 sources) Magnetic resonance imaging of brain abnormal; Translations: [White matter disease, unspecified] Onset: 4 06-20-2023 Episodic Other nutritional; endocrine; and metabolic disorders (4 sources) H/O: thyroid disorder; Translations: [Personal history of other endocrine, nutritional and metabolic disease] Onset: 4 06-20-2023 Episodic Other nutritional; endocrine; and metabolic disorders (5 sources) Overweight in adulthood with body mass index of 25 or more but less than 30; Translations: [Body mass index (BMI) 27.0-27.9, adult] Onset: 4 06-20-2023 Episodic Other screening for suspected conditions (not mental disorders or infectious disease) (20 sources) Patient encounter status; Translations: [Encounter for screening for osteoporosis] Onset: 2 Resolved: 4 Episodic Other skin disorders (2 sources) Facial swelling ; Translations: [Localized swelling, mass and lump, head] 03-06-2019 Episodic Peripheral and visceral atherosclerosis (20 sources) Arteriosclerotic vascular disease; Translations: [Unspecified atherosclerosis] Onset: 9 Chronic Residual codes; unclassified (4 sources) Obstructive sleep apnea syndrome; Translations: [Obstructive sleep apnea (adult) (pediatric)] Onset: 4 06-20-2023 Chronic Residual codes; unclassified (1 source) Postmenopausal state; Translations: [Asymptomatic menopausal state] Episodic Residual codes; unclassified (1 source) Family history of malignant neoplasm of digestive organs; Translations: [FAM HX MALIG NEOPLASM DIGESTIV ORGN] Onset: 3 Episodic Residual codes; unclassified (1 source) Family history of malignant neoplasm of trachea, bronchus and lung; Translations: [FAM HX MALIG NEOPLSM TRACH BRON LNG] Onset: 3 Episodic Residual codes; unclassified (1 source) Family history of malignant neoplasm of other organs or systems; Translations: [FAM HX MALIG NEOPLASM OTH ORGN/SYS] Onset: 3 Episodic Residual codes; unclassified (4 sources) Edema of lower extremity; Translations: [Localized edema] Onset: 4 06-20-2023 Episodic Residual codes; unclassified (4 sources) Tobacco user; Translations: [Tobacco use] Onset: 4 06-20-2023 Episodic Residual codes; unclassified (1 source) History of surgical procedure on mouth; Translations: [Other specified postprocedural states] 08-03-2022 Episodic Spondylosis; intervertebral disc disorders; other back problems (4 sources) Degeneration of cervical intervertebral disc; Translations: [Other cervical disc degeneration, unspecified cervical region] Onset: 4 06-20-2023 Chronic Spondylosis; intervertebral disc disorders; other back problems (1 source) Neck pain; Translations: [Cervicalgia] Episodic Syncope (6 sources) Syncope; Translations: [Syncope and collapse] Onset: 4 Resolved: 4 08-23-2021 Episodic Systemic lupus erythematosus and connective tissue disorders (1 source) Takayasu's disease; 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 Thyroid disorders (20 sources) Goiter; Translations: [Nontoxic goiter, unspecified] Onset: 2 08-31-2003 Chronic Past or Other Problems Problem Classification Problem Date Documented Date Episodic/Chronic Abdominal hernia (20 sources) Hiatal hernia; Translations: [Diaphragmatic hernia without obstruction or gangrene] Onset: 04-06-2020 Episodic Other circulatory disease (1 source) Hypotension, unspecified; Translations: [HYPOTENSION UNSPECIFIED] Onset: 09-28-2021 Episodic Other connective tissue disease (20 sources) Bilateral weakness of upper limbs; Translations: [Other symptoms and signs involving the musculoskeletal system] Onset: 04-17-2019 04-17-2019 Episodic Other connective tissue disease (1 source) Neuralgia and neuritis, unspecified; Translations: [Neuralgia and neuritis] Onset: 2021 Episodic Other diseases of kidney and ureters (1 source) Disorder of kidney and ureter, unspecified; Translations: [DISORDER KIDNEY AND URETER UNS] Onset: 08-31-2021 Episodic Other diseases of kidney and ureters (1 source) Cyst of kidney, acquired; Translations: [Kidney cyst, acquired] Onset: 03-23-2022 Episodic Other lower respiratory disease (20 sources) Dyspnea on exertion; Translations: [Dyspnea, unspecified] Onset: 03-19-2019 03-19-2019 Episodic Other lower respiratory disease (1 source) Dyspnea, unspecified; Translations: [Dyspnea on exertion] Onset: 03-19-2019 Episodic Other nutritional; endocrine; and metabolic disorders (1 source) Abnormal weight loss; Translations: [ABNORMAL WEIGHT LOSS] Onset: 03-25-2022 Episodic Results Test Name Value Interpretation Reference Range Facility Alanine aminotransferase [En zymatic activity/volume] in Serum or PlasmaOrdered By: Jose Sofia on 08-19-2023 ALT [Catalytic activity/Vol] 25 U/L 7-[address] [facility] Albumin [Mass/volume] in Ser um or Plasma by Bromocresol green (BCG) dye binding methoOrdered By: Jose Sofia on 08-19-2023 Albumin BCG dye [Mass/Vol] 4.0 g/dL 3.5-5.[address] [facility] Alkaline phosphatase [Enzyma tic activity/volume] in Serum or PlasmaOrdered By: Jose Sofia on 08-19-2023 ALP [Catalytic activity/Vol] 64 U/L 34-[address] [facility] Aspartate aminotransferase [ Enzymatic activity/volume] in Serum or PlasmaOrdered By: Jose Sofia on 08-19-2023 AST [Catalytic activity/Vol] 21 U/L 13-[address] [facility] Automated erythrocytes count in urine sediment (number/area)Ordered By: Jose Sofia on 08-19-2023 RBC Auto (Urine sed) [#/Area] 3-4 [HPF] 0-[address] [facility] Automated leukocytes count i n urine sediment (number/area)Ordered By: Jose Sofia on 08-19-2023 WBC Auto (Urine sed) [#/Area] 3-4 [HPF] 0-[address] [facility] Basophils Auto (Bld) [#/Vol] Ordered By: Jose Sofia on 08-19-2023 Basophils (Bld) [#/Vol] 0.0 10*3/uL 0.0-0.[address] [facility] Basophils/100 WBC Auto (Bld) Ordered By: Jose Sofia on 08-19-2023 Basophils/100 WBC (Bld) 0.3 % . [facility] Bilirubin Test strip Ql (U)O rdered By: Jose Sofia on 08-19-2023 Bilirubin Ql (U) 1+ Negative [facility] Bilirubin.direct [Mass/volum e] in Serum or PlasmaOrdered By: Jose Sofia on 08-19-2023 Bilirubin.direct [Mass/Vol] 0.10 mg/dL 0.03-0.[address] [facility] Bilirubin.total [Mass/volume ] in Serum or PlasmaOrdered By: Jose Sofia on 08-19-2023 Bilirubin [Mass/Vol] 0.8 mg/dL 0.3-1.0 [facility] CT abdomen pelvis w conon CT abdomen pelvis w con [facility] [place] [address] CT Scan Report Signed Patient: Regla Prajapati MR#: [id number] : 1970 Acct:[id number] Age/Sex: 52 / F ADM Date: 08/19/23 Loc: ER Room: Type: [facility] ER Attending Dr: Copies to: Jose Sofia APRN Ordering Provider: Jose Sofia APRN Date of Service: 08/19/23 CT/CT abdomen pelvis w con: nausea, vomiting, diarrhea CT abdomen pelvis w con 08/19/2023 1:29 PM SIGNS AND SYMPTOMS: nausea, vomiting, diarrhea TECHNIQUE: Multidetector ct axial images of the abdomen and pelvis were obtained with IV contrast. Multiplanar reformats were performed and reviewed to further define anatomy and possible pathology. CT was performed with one or more of the following dose reduction techniques: Automated exposure control, adjustment of the mA and/or kV according to patient size, or use of iterative reconstruction technique. COMPARISON: None. FINDINGS: Lower Chest: Atherosclerotic changes are noted in the thoracic aorta. ABDOMEN: Liver: The liver is hypoattenuating suggesting hepatic steatosis. Bile Ducts: Normal caliber. Gallbladder: No calcified gallstones. Normal caliber wall. Pancreas: Within normal limits. Spleen: Within normal limits. Adrenals: Within normal limits. Kidneys: Within normal limits. Pelvis: Reproductive Organs: No pelvic masses. Ureters: Within normal limits. Bladder: Within normal limits. Bowel: Normal caliber. There is a normal appendix in the right lower quadrant. Mesenteric Lymph Nodes: No enlarged mesenteric lymph nodes. Peritoneum: There is a small amount of free fluid in the pelvis. Vessels: Atherosclerotic changes are noted in the abdominal aorta and its branches. Retroperitoneum: Within normal limits. Abdominal Wall: Within normal limits. Bones: Within normal limits. CT/CT abdomen pelvis w con IMPRESSION: No bowel obstruction or obstructive uropathy. There is a small amount of free fluid in the right hemipelvis which is of uncertain etiology. May be physiologic or reactive. Findings are consistent with hepatic steatosis. Impression dictated by: Vik Dupont M.D.08/19/2023 4:00 PM Dictation Location: [place] [address] Transcribed By: [facility] 08/19/23 1600 Dictated By: Vik Dupont II, MD 08/19/23 1553 Signed By: 08/19/23 1600 Normal [facility] Calcium [Mass/volume] in Ser um or PlasmaOrdered By: Jose Sofia on 08-19-2023 Calcium [Mass/Vol] 8.9 mg/dL 8.6-10.3 [facility] Carbon dioxide, total [Moles /volume] in Serum or PlasmaOrdered By: Jose Sofia on 08-19-2023 CO2 [Moles/Vol] 26.4 mmol/L 21.0-31.0 [facility] Chloride [Moles/volume] in S yariel or PlasmaOrdered By: Jose Sofia on 08-19-2023 Chloride [Moles/Vol] 100 mmol/L 98-107 [facility] Color Auto (U)Ordered By: Abdiel Sofia on 08-19-2023 Color (U) Dark yellow Yellow [facility] Complete Blood Count Auto Di ffon 08-19-2023 Basophils (Bld) [#/Vol] 0.0 10*3/uL Normal 0.0-0.2 [facility] Comment on above: Result Comment: PERF ORMED BY: [place] [address] PATHOLOGIST WORK FROM HOME RAMONE CONTRERAS M.D. Performed By: #### C BC, MG, LIPASE, HEPATIC, CMP #### [address] Basophils/100 WBC (Bld) 0.3 % Normal . [facility] Comment on above: Performed By: #### C BC, MG, LIPASE, HEPATIC, CMP #### [address] Eosinophils (Bld) [#/Vol] 0.0 10*3/uL Normal 0.0-0.45 [facility] Comment on above: Performed By: #### C BC, MG, LIPASE, HEPATIC, CMP #### [address] Eosinophils/100 WBC (Bld) 0.1 % Normal . [facility] Comment on above: Performed By: #### C BC, MG, LIPASE, HEPATIC, CMP #### [address] Erythrocyte distribution width (RBC) [Ratio] 13.6 % Normal 11.9-15.3 [facility] Comment on above: Performed By: #### C BC, MG, LIPASE, HEPATIC, CMP #### [address] Hematocrit (Bld) [Volume fraction] 42.3 % Normal 34.0-46.4 [facility] Comment on above: Performed By: #### C BC, MG, LIPASE, HEPATIC, CMP #### [address] Hemoglobin (Bld) [Mass/Vol] 13.7 g/dL Normal 11.8-15.4 [facility] Comment on above: Performed By: #### C BC, MG, LIPASE, HEPATIC, CMP #### [address] Lymphocytes (Bld) [#/Vol] 1.1 10*3/uL Normal 1.00-4.8 [facility] Comment on above: Performed By: #### C BC, MG, LIPASE, HEPATIC, CMP #### [address] Lymphocytes/100 WBC (Bld) 11.0 % Normal . [facility] Comment on above: Performed By: #### C BC, MG, LIPASE, HEPATIC, CMP #### [address] MCH (RBC) [Entitic mass] 29.8 pg Normal 24.7-34.3 [facility] Comment on above: Performed By: #### C BC, MG, LIPASE, HEPATIC, CMP #### [address] MCV (RBC) [Entitic vol] 92.4 fL Normal 80-100 [facility] Comment on above: Performed By: #### C BC, MG, LIPASE, HEPATIC, CMP #### [address] Mean Corpuscular HGB Conc 32.2 g/dL Normal 32.0-35.0 [facility] Comment on above: Performed By: #### C BC, MG, LIPASE, HEPATIC, CMP #### [address] Monocytes (Bld) [#/Vol] 0.5 10*3/uL Normal 0.0-0.8 [facility] Comment on above: Performed By: #### C BC, MG, LIPASE, HEPATIC, CMP #### [address] Monocytes/100 WBC (Bld) 24.94 % High 0.00-20.00 [facility] Comment on above: Result Comment: For adults in ED, MDW > 20.0 may be associated with a higher risk of sepsis during the first 12 hrs of hospital admission Performed By: #### C BC, MG, LIPASE, HEPATIC, CMP #### [address] Monocytes/100 WBC (Bld) 5.1 % Normal . [facility] Comment on above: Performed By: #### C BC, MG, LIPASE, HEPATIC, CMP #### [address] Neutrophils (Bld) [#/Vol] 8.0 10*3/uL High 1.8-7.7 [facility] Comment on above: Performed By: #### C BC, MG, LIPASE, HEPATIC, CMP #### [address] Neutrophils/100 WBC (Bld) 83.5 % Normal . [facility] Comment on above: Performed By: #### C BC, MG, LIPASE, HEPATIC, CMP #### [address] NRBC% 0.0 /100{WBC} Normal 0-0.5 [facility] Comment on above: Performed By: #### C BC, MG, LIPASE, HEPATIC, CMP #### [address] Platelet mean volume (Bld) [Entitic vol] 7.0 fL Normal 6.3-10.7 [facility] Comment on above: Performed By: #### C BC, MG, LIPASE, HEPATIC, CMP #### [address] Platelets (Bld) [#/Vol] 226 10*3/uL Normal 150-450 [facility] Comment on above: Performed By: #### C BC, MG, LIPASE, HEPATIC, CMP #### [address] RBC (Bld) [#/Vol] 4.58 10*6/uL Normal 3.60-5.00 [facility] Comment on above: Performed By: #### C BC, MG, LIPASE, HEPATIC, CMP #### [address] WBC (Bld) [#/Vol] 9.6 10*3/uL Normal 3.8-11.6 [facility] Comment on above: Performed By: #### C BC, MG, LIPASE, HEPATIC, CMP #### [facility] [address] Comprehensive Metabolic Pane jenn 08-19-2023 Albumin [Mass/Vol] 4.0 g/dL Normal 3.5-5.7 [facility] Comment on above: Performed By: #### C BC, MG, LIPASE, HEPATIC, CMP #### [address] Albumin/Globulin [Mass ratio] 1.4 {ratio} Normal [facility] Comment on above: Performed By: #### C BC, MG, LIPASE, HEPATIC, CMP #### [address] ALP [Catalytic activity/Vol] 64 U/L Normal 34-104 [facility] Comment on above: Performed By: #### C BC, MG, LIPASE, HEPATIC, CMP #### [address] ALT [Catalytic activity/Vol] 25 U/L Normal 7-52 [facility] Comment on above: Performed By: #### C BC, MG, LIPASE, HEPATIC, CMP #### [address] Anion gap [Moles/Vol] 14.5 mmol/L Normal 6.0-15.0 [facility] Comment on above: Performed By: #### C BC, MG, LIPASE, HEPATIC, CMP #### [address] AST [Catalytic activity/Vol] 21 U/L Normal 13-39 [facility] Comment on above: Performed By: #### C BC, MG, LIPASE, HEPATIC, CMP #### [place] [address] [place] Bilirubin [Mass/Vol] 0.8 mg/dL Normal 0.3-1.0 [facility] Comment on above: Performed By: #### C BC, MG, LIPASE, HEPATIC, CMP #### [place] [address] [place] Calcium [Mass/Vol] 8.9 mg/dL Normal 8.6-10.3 [facility] Comment on above: Performed By: #### C BC, MG, LIPASE, HEPATIC, CMP #### [address] Chloride [Moles/Vol] 100 mmol/L Normal 98-107 [facility] Comment on above: Performed By: #### C BC, MG, LIPASE, HEPATIC, CMP #### [address] CO2 [Moles/Vol] 26.4 mmol/L Normal 21.0-31.0 [facility] Comment on above: Performed By: #### C BC, MG, LIPASE, HEPATIC, CMP #### [address] Creatinine [Mass/Vol] 1.04 mg/dL Normal 0.60-1.20 [facility] Comment on above: Performed By: #### C BC, MG, LIPASE, HEPATIC, CMP #### [address] Creatinine Clr Calc Pharmacy 58.25 Normal [facility] Comment on above: Performed By: #### C BC, MG, LIPASE, HEPATIC, CMP #### [address] GFR/1.73 sq M.predicted MDRD (S/P/Bld) [Vol rate/Area] mL/min/{1.73_m2} Normal [facility] Comment on above: Performed By: #### C BC, MG, LIPASE, HEPATIC, CMP #### [address] Globulin (S) [Mass/Vol] 2.8 g/dL Normal [facility] Comment on above: Performed By: #### C BC, MG, LIPASE, HEPATIC, CMP #### [address] Glucose [Mass/Vol] 119 mg/dL High 70-100 [facility] Comment on above: Result Comment: [facility] Glucose Reference Range is dependent on time and content of last meal. Glucose of more than 200 mg/dL in a nonstressed, ambulatory subject supports the diagnosis of Diabetes Mellitus. ADA recommended reference range Performed By: #### C BC, MG, LIPASE, HEPATIC, CMP #### [address] Potassium [Moles/Vol] 3.9 mmol/L Normal 3.5-5.1 [facility] Comment on above: Performed By: #### C BC, MG, LIPASE, HEPATIC, CMP #### [address] Protein [Mass/Vol] 6.8 g/dL Normal 6.4-8.9 [facility] Comment on above: Performed By: #### C BC, MG, LIPASE, HEPATIC, CMP #### [address] Sodium [Moles/Vol] 137 mmol/L Normal 136-145 [facility] Comment on above: Performed By: #### C BC, MG, LIPASE, HEPATIC, CMP #### [address] Urea nitrogen [Mass/Vol] 18 mg/dL Normal 7-25 [facility] Comment on above: Performed By: #### C BC, MG, LIPASE, HEPATIC, CMP #### [address] Creatinine [Mass/volume] in Serum or PlasmaOrdered By: Jose Sofia on 08-19-2023 Creatinine [Mass/Vol] 1.04 mg/dL 0.60-1.20 [facility] Dipstick and Microscopicon 0 08-19-2023 Appearance (U) Cloudy Critically abnormal Clear [facility] Comment on above: Order Comment: Name Collection Type:: Voided Performed By: #### A DDONUAPLUS #### [address] Bacteria,Urine None Seen Normal None Seen The [facility] Comment on above: Order Comment: Name Collection Type:: Voided Performed By: #### A DDONUAPLUS #### [place] [address] [place] Bilirubin,Urine 1+ High Negative [facility] Comment on above: Order Comment: Name Collection Type:: Voided Performed By: #### A DDONUAPLUS #### [address] Color (U) Dark Yellow Critically abnormal Yellow [facility] Comment on above: Order Comment: Name Collection Type:: Voided Performed By: #### A DDONUAPLUS #### [address] Glucose Ql (U) Normal Normal Normal [facility] Comment on above: Order Comment: Name Collection Type:: Voided Performed By: #### A DDONUAPLUS #### [address] Hyaline Casts,Urine 0-8 Normal 0-8 [facility] Comment on above: Order Comment: Name Collection Type:: Voided Result Comment: PERF ORMED BY: [place] [address] PATHOLOGIST WORK FROM HOME RAMONE CONTRERAS M.D. Performed By: #### A DDONUAPLUS #### [address] Ketones Ql (U) Trace High Negative [facility] Comment on above: Order Comment: Name Collection Type:: Voided Performed By: #### A DDONUAPLUS #### [place] [address] [place] Leukocyte esterase Test strip Ql (U) Negative Normal Negative [facility] Comment on above: Order Comment: Name Collection Type:: Voided Performed By: #### A DDONUAPLUS #### [place] [address] [place] Nitrite,Urine Negative Normal Negative [facility] Comment on above: Order Comment: Name Collection Type:: Voided Performed By: #### A DDONUAPLUS #### [place] [address] [place] Occult Blood,Urine Negative Normal Negative [facility] Comment on above: Order Comment: Name Collection Type:: Voided Result Comment: PERF ORMED BY: [place] [address] PATHOLOGIST WORK FROM HOME RAMONE CONTRERAS M.D. Performed By: #### A DDONUAPLUS #### [address] pH (U) 5.5 [pH] Normal 5.0-9.0 [facility] Comment on above: Order Comment: Name Collection Type:: Voided Performed By: #### A DDONUAPLUS #### [address] Protein,Urine Trace High Negative [facility] Comment on above: Order Comment: Name Collection Type:: Voided Performed By: #### A DDONUAPLUS #### [address] RBC,Urine 3-4 Normal 0-4 [facility] Comment on above: Order Comment: Name Collection Type:: Voided Performed By: #### A DDONUAPLUS #### [place] [address] [place] Specificy [place],Urine 1.028 Normal 1.001-1.030 [facility] Comment on above: Order Comment: Name Collection Type:: Voided Performed By: #### A DDONUAPLUS #### [place] [address] [place] Squamous Epithelial Cell,Urine 5-9 High 0-2 [facility] Comment on above: Order Comment: Name Collection Type:: Voided Performed By: #### A DDONUAPLUS #### [place] [address] [place] Urobilinogen,Urine Normal Normal Normal [facility] Comment on above: Order Comment: Name Collection Type:: Voided Performed By: #### A DDONUAPLUS #### [place] [address] [place] WBC,Urine 3-4 Normal 0-4 [facility] Comment on above: Order Comment: Name Collection Type:: Voided Performed By: #### A DDONUAPLUS #### [facility] [address] Eosinophils Auto (Bld) [#/Vo l]Ordered By: Jose Sofia on 08-19-2023 Eosinophils (Bld) [#/Vol] 0.0 10*3/uL 0.0-0.[address] [facility] Eosinophils/100 WBC Auto (Bl d)Ordered By: Jose Sofia on 08-19-2023 Eosinophils/100 WBC (Bld) 0.1 % . [facility] Erythrocyte distribution wid th Auto (RBC) [Ratio]Ordered By: Jose Sofia on 08-19-2023 Erythrocyte distribution width (RBC) [Ratio] 13.6 % 11.9-15.[address] [facility] Globulin Calc (S) [Mass/Vol] Ordered By: Jose Sofia on 08-19-2023 Globulin (S) [Mass/Vol] 2.8 g/dL [facility] Glucose [Mass/volume] in Ser um or PlasmaOrdered By: Jose Sofia on 08-19-2023 Glucose [Mass/Vol] 119 mg/dL 70-100 [facility] Comment on above: ADA recommended refe rence rangeRandom Glucose Reference Range is dependent on time and content of last meal. Glucose of more than 200 mg/dL in a nonstressed, ambulatory subject supports the diagnosis of Diabetes Mellitus. Hematocrit Auto (Bld) [Volum e fraction]Ordered By: Jose Sofia on 08-19-2023 Hematocrit (Bld) [Volume fraction] 42.3 % 34.0-46.[address] [facility] Hemoglobin [Mass/volume] in BloodOrdered By: Jose Sofia on 08-19-2023 Hemoglobin (Bld) [Mass/Vol] 13.7 g/dL 11.8-15.[address] [facility] Hepatic Panelon 08-19-2023 Bilirubin,Indirect 0.7 mg/dL Normal [facility] Comment on above: Performed By: #### C BC, MG, LIPASE, HEPATIC, CMP #### [facility] [address] Bilirubin.indirect [Mass/Vol] 0.10 mg/dL Normal 0.03-0.18 [facility] Comment on above: Performed By: #### C BC, MG, LIPASE, HEPATIC, CMP #### [facility] [address] [place] [address] Ketones Auto test strip (U) [Mass/Vol]Ordered By: Jose Sofia on 08-19-2023 Ketones (U) [Mass/Vol] Trace Negative [facility] - UrinalysisOrder ed By: Jose Sofia on 08-19-2023 Hyaline casts LM Ql (Urine sed) 0-8 [LPF] 0-[address] [facility] Leukocytes [#/volume] correc flo for nucleated erythrocytes in Blood by Automated counOrdered By: Jose Sofia on 08-19-2023 WBC corrected for nucl RBC Auto (Bld) [#/Vol] 9.6 10*3/uL 3.8-11.[address] [facility] Lipaseon 08-19-2023 Lipase [Catalytic activity/Vol] 15.0 U/L Normal 11.0-82.0 [facility] Comment on above: Result Comment: PERF ORMED BY: [place] [address] PATHOLOGIST WORK FROM HOME RAMONE CONTRERAS M.D. Performed By: #### C BC, MG, LIPASE, HEPATIC, CMP #### [facility] [address] [place] [address] Lipase [Enzymatic activity/v olume] in Serum or PlasmaOrdered By: Jose Sofia on 08-19-2023 Lipase [Catalytic activity/Vol] 15.0 U/L 11.0-82.[address] [facility] Lymphocytes Auto (Bld) [#/Vo l]Ordered By: Jose Sofia on 08-19-2023 Lymphocytes (Bld) [#/Vol] 1.1 10*3/uL 1.00-4.[address] [facility] Lymphocytes/100 WBC Auto (Bl d)Ordered By: Jose Sofia on 08-19-2023 Lymphocytes/100 WBC (Bld) 11.0 % . [facility] MCH Auto (RBC) [Entitic mass ]Ordered By: Jose Sofia on 08-19-2023 MCH (RBC) [Entitic mass] 29.8 pg 24.7-34.[address] [facility] MCHC Auto (RBC) [Mass/Vol]Or dered By: Jose Sofia on 08-19-2023 MCHC (RBC) [Mass/Vol] 32.2 g/dL 32.0-35.0 [facility] MCV Auto (RBC) [Entitic vol] Ordered By: Jose Sofia on 08-19-2023 MCV (RBC) [Entitic vol] 92.4 fL 80-100 [facility] Magnesiumon 08-19-2023 Magnesium [Mass/Vol] 1.3 mg/dL Low 1.9-2.7 [facility] Comment on above: Performed By: #### C BC, MG, LIPASE, HEPATIC, CMP #### [facility] [address] [place] [address] Magnesium [Mass/volume] in S yariel or PlasmaOrdered By: Jose Sofia on 08-19-2023 Magnesium [Mass/Vol] 1.3 mg/dL 1.9-2.7 [facility] Monocyte distribution width [Entitic volume] in Blood by AutomatedOrdered By: Jose Sofia on 08-19-2023 Monocyte distribution width Auto (Bld) [Entitic vol] 24.94 % 0.00-20.[address] [facility] Comment on above: For adults in ED, MD W > 20.0 may be associated with a higher risk of sepsis during the first 12 hrs of hospital admission Monocytes Auto (Bld) [#/Vol] Ordered By: Jose Sofia on 08-19-2023 Monocytes (Bld) [#/Vol] 0.5 10*3/uL 0.0-0.[address] [facility] Monocytes/100 WBC Auto (Bld) Ordered By: Jose Sofia on 08-19-2023 Monocytes/100 WBC (Bld) 5.1 % . [facility] Neutrophils Auto (Bld) [#/Vo l]Ordered By: Jose Sofia on 08-19-2023 Neutrophils (Bld) [#/Vol] 8.0 10*3/uL 1.8-7.[address] [facility] Neutrophils/100 WBC Auto (Bl d)Ordered By: Jose Sofia on 08-19-2023 Neutrophils/100 WBC (Bld) 83.5 % . [facility] Nitrite Test strip Ql (U)Ord ered By: Jose Sofia on 08-19-2023 Nitrite Ql (U) Negative Negative [facility] No Panel InformationOrdered By: Jose Sofia on 08-19-2023 Estimated GFR (CKD-EPI) > 60.0 mL/Min [facility] Creatinine Clearance (Chem 58.[address] [facility] Nucleated erythrocytes [Pres ence] in Blood by Automated countOrdered By: Jose Sofia on 08-19-2023 Nucleated RBC Auto Ql (Bld) 0.0 /100{WBC} 0-0.[address] [facility] Platelet mean volume Auto (B ld) [Entitic vol]Ordered By: Jose Sofia on 08-19-2023 Platelet mean volume (Bld) [Entitic vol] 7.0 fL 6.3-10.[address] [facility] Platelets Auto (Bld) [#/Vol] Ordered By: Jose Sofia on 08-19-2023 Platelets (Bld) [#/Vol] 226 10*3/uL 150-[address] [facility] Potassium [Moles/volume] in Serum or PlasmaOrdered By: Jose Sofia on 08-19-2023 Potassium [Moles/Vol] 3.9 mmol/L 3.5-5.1 [facility] Protein Auto test strip (U) [Mass/Vol]Ordered By: Jose Sofia on 08-19-2023 Protein (U) [Mass/Vol] Trace mg/dL Negative [facility] Protein [Mass/volume] in Ser um or PlasmaOrdered By: Jose Sofia on 08-19-2023 Protein [Mass/Vol] 6.8 g/dL 6.4-8.9 [facility] RBC Auto (Bld) [#/Vol]Ordere d By: Jose Sofia on 08-19-2023 RBC (Bld) [#/Vol] 4.58 10*6/uL 3.60-5.00 [facility] Serum or plasma albumin/glob ulin mass ratioOrdered By: Jose Sofia on 08-19-2023 Albumin/Globulin [Mass ratio] 1.4 {ratio} [facility] Serum or plasma anion gap de terminationOrdered By: Jose Sofia on 08-19-2023 Anion gap [Moles/Vol] 14.5 mmol[facility]L [facility] Serum or plasma non-glucuron idated bilirubin measurement (mass/volume)Ordered By: Jose Sofia 08-19-2023 Bilirubin.indirect [Mass/Vol] 0.7 mg/dL [facility] Sodium [Moles/volume] in Ser um or PlasmaOrdered By: Jose Sofia 08-19-2023 Sodium [Moles/Vol] 137 mmol/L 136-145 [facility] Specific gravity Auto test s trip (U) [Rel density]Ordered By: Jose Sofia 08-19-2023 Specific gravity (U) [Rel density] 1.028 1.001-1.[address] [facility] Squamous epithelial cells de tection in urine sediment by light microscopyOrdered By: Jose Sofia 08-19-2023 Epithelial cells.squamous LM Ql (Urine sed) 5-9 [HPF] 0-[address] [facility] Urea nitrogen [Mass/volume] in Serum or PlasmaOrdered By: Jose Sofia 08-19-2023 Urea nitrogen [Mass/Vol] 18 mg/dL 7-[address] [facility] Urine bacteria detection by automated methodOrdered By: Jose Sofia 08-19-2023 Bacteria Auto Ql (U) None seen None Seen [facility] Urine clarity by refractomet ry automatedOrdered By: Jose Sofia 08-19-2023 Clarity Refractometry automated (U) Cloudy Clear [facility] Urine glucose measurement by automated test strip (mass/volume)Ordered By: Jose Sofia 08-19-2023 Glucose Auto test strip (U) [Mass/Vol] Normal mg/dL Normal [facility] Urine hemoglobin detection b y automated test stripOrdered By: Jose Sofia 08-19-2023 Hemoglobin Auto test strip Ql (U) Negative Negative [facility] Urine leukocyte esterase det ection by automated test stripOrdered By: Jose Sofia on 08-19-2023 Leukocyte esterase Auto test strip Ql (U) Negative Negative [facility] Urobilinogen Auto test strip (U) [Mass/Vol]Ordered By: Jose Sofia on 08-19-2023 Urobilinogen (U) [Mass/Vol] Normal mg/dL Normal [facility] WBC Auto (Bld) [#/Vol]Ordere d By: Jose Sofia on 08-19-2023 WBC (Bld) [#/Vol] 9.6 10*3/uL 3.8-11.6 [facility] pH Auto test strip (U)Ordere d By: Jose Sofia on 08-19-2023 pH (U) 5.5 [pH] 5.0-9.[address] [facility] MICROALB CREAT RATIO RAN DOMon 06-20-2023 CREATININE URINE RANDOM 109.18 mg/dL 20.0 0 - 300.00 mg/dL [facility] MICROALBUM CREATININE RATIO UR 11.9 mg/g 0.0 - 29.9 mg/g [facility] Comment on above: NO MICROALBUMINURIA 0-29 MG/G CLINICAL MICROALBUMINURIA 30-300 MG/G MACROALBUMINURIA >300 MG/G MICROALBUMIN URINE RANDOM <1.3 NINF - 30.0 mg/dL [facility] CNOVon 09-01-2022 CNOV Office Visit (NEURAV ) REGLA PRAJAPATI ([id number]) 1970 F Date Time Provider Department 09/01/22 11:30 AM KARTHIK ZARATE During your visit today, we recorded the following information about you: Pulse Blood pressure 73/minute 114/82 Karthik Zarate DO 09/02/2022 12:40 PM Signed [facility] [place] New Patient Consultation to this clinic, previously seen by Dr EDUARDO, neurology, last 06/15/2021. September 01, 2022 HPI: Ms. Prajapati, who is accompanied by her father with her permission, presents today secondary to issues of dizziness and arachnoid cyst. She states that she has had random spells where she feels lightheadedness which can occur abruptly. In the time it occurs she can become nauseated. She denies spinning wit this. Rarely she can feel sharp electrical shock feeling in her head or down her body at times with the lightheadedness but also separate. With the lightheadedness spell these can occur when rolling and can have it with position changes. She finds abrupt position changes can cause the feeling. When the lightheadedness she can have the feeling for 30-60 seconds. She notes issues with her blood pressure and is seeing nephrology for this. She has had the feelings of lightheadedness over years. She has stents in several arteries including carotid artery just above the aortic arch and right iliac arteries. She feels the lightheadedness spells greatly increased in number after these stents were placed. She has had EEG after having twitching and was told this was negative for seizures. She takes a blood pressure cuff with her to be as her blood pressures drop as low as 70/40's after taking her evening blood pressure medications and in the daytime can reach as high as 180's systolic and checked a few minutes later 150's systolic. She admits she could be doing better in regards to hydration due to feelings of bloating. She feels she is not eating all that well, averaging 1-2 meals a day. She gives an example of a meal being a can of ravioli or cheese ball in the day. Other times she may only have dinner and no other meal all day long. She is not on a special diet and is eating protein/meats. She notes that when coughing, sneezing, or laughing she may have spell of lightheaded as well. She denies issues with vertigo but has had tinnitus and hearing loss. In regards to her workup she had a CTA head and neck 05/12/2022 PAST MEDICAL HISTORY Diagnosis Date Allergic rhinitis, cause unspecified Allergy, airborne subst Anxiety state Dyspareunia Essential hypertension Fibromyalgia Genital herpes, unspecified under control Genital herpes Irritable bowel syndrome Irritable bowel Other and unspecified ovarian cyst 5 y/a Ovarian cyst Peripheral vascular disease (HCC) extensive, S/p right carotid stent and right iliac artery stent Renal artery stenosis (HCC) right Varicella without mention of complication Chickenpox PAST SURGICAL HISTORY Procedure Laterality Date COLONOSCOPY FLX DX W/COLLJ SPEC WHEN PFRMD 04/07/02 Colonoscopy LAPS ABD PRTMANDOMENTUM DX W/WO SPEC BR/WA SPX 5 yrs ago Laparoscopy Current Outpatient Medications on File Prior to Visit Medication Sig buPROPion SR (WELLBUTRIN SR) 100 mg 12 hr tablet Take 1 tablet by mouth twice daily. lubiprostone (AMITIZA) 24 mcg capsule Take 1 tablet by mouth q 12 HR. meclizine (ANTIVERT) 12.5 mg tab Take 1 tablet by mouth as needed. promethazine (PHENERGAN) 25 mg tablet Take 1 tablet by mouth as needed. sucralfate (CARAFATE) 1 gram tablet Take 1 tablet by mouth as needed. pantoprazole DR (PROTONIX) 40 mg tablet Take 1 tablet by mouth q 12 HR. lisinopril 2.5 mg tablet Take 2 tablets by mouth every morning. And 1.25mg qpm terbinafine HCl (LAMISIL) 250 mg tablet Take 250 mg by mouth once daily. cloNIDine HCl (CATAPRES) 0.1 mg tablet Take 1 tablet by mouth every 8 hours as needed (take if systolic BP>170). SYNTHROID 50 mcg tablet conjugated estrogens (PREMARIN) vaginal cream tiZANidine HCl 4 mg capsule Take 4 mg by mouth twice daily as needed. ALPRAZolam (XANAX) 0.5 mg tablet Take 0.5 mg by mouth three times daily as needed. atorvastatin (LIPITOR) 40 mg tablet Take 1 tablet by mouth daily at bedtime. clopidogrel (PLAVIX) 75 mg tablet TAKE 1 TABLET BY MOUTH ONCE DAILY FOR 14 DAYS aspirin, enteric coated (ASPIRIN, ENTERIC COATED) 81 mg EC tablet Take 81 mg by mouth once daily. pantoprazole DR (PROTONIX) 40 mg tablet Take 40 mg by mouth once daily. naltrexone capsule 4.5 mg (CPD) Take 1 capsule by mouth once daily. buPROPion HCL 200 mg 12 hr tablet Take 200 mg by mouth twice daily. omeprazole (PRILOSEC) 20 mg capsule 40 mg once daily. ezetimibe (ZETIA) 10 mg tablet Take 1 tablet by mouth once daily. cholecalciferol (VITAMIN D) 1,000 unit tab tablet Take 1 capsule by mouth once daily. (more content not included)... Normal [facility]PMelany 08-03-2022 CNPN Telephone ([facility]) REGLA PRAJAPATI ([id number]) 1970 F Date Time Provider Department 08/03/22 FERMIN BEGUM [facility] During your visit today, we recorded the following information about you: Nicole Mackay RN 08/03/2022 3:46 PM Signed Ms. 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 . Pts dentist calls office today Had scaling and deep cleaning Of gums 2 days ago. Had large amount Of bleeding which pt says she swallowed. Had several emesis with large amount of bright Red blood. Has one more treatment next week They are asking if she can stop plavix for 3-5 days She endorses that today she feels SOB And light headed advised ED for evaluation She is agreeable and going to [facility] ED Nicole Mackay RN 08/04/2022 2:39 PM Signed ED is good. Plavix is hard to stop for her, but if risks outweigh benefits given her issues with bleeding, then reasonable risk to take. RM Called dentist left message regarding above-Dr. Robert Matthew [phone] Also see my chart message to pt Nicole Allergies As of Date: 08/03/2022 Noted Allergy Reaction AMLODIPINE 05/08/2019 7 - Swelling Comments: BLE swelling PENICILLINS 04/24/2002 Date Reviewed: 07/26/2022 Reviewed by: WESTON Reza - Fully Assessed Reason for Visit: Patient Update [1234] Prescriptions as of 08/04/2022 - lisinopril 2.5 mg tablet Take 2 tablets by mouth every morning. And 2.5mg qpm - terbinafine HCl (LAMISIL) 250 mg tablet Take 250 mg by mouth once daily. - cloNIDine HCl (CATAPRES) 0.1 mg tablet Take 1 tablet by mouth every 8 hours as needed (take if systolic BP>170). - pantoprazole DR (PROTONIX) 40 mg tablet Take 40 mg by mouth once daily. - SYNTHROID 50 mcg tablet - conjugated estrogens (PREMARIN) vaginal cream - naltrexone capsule 4.5 mg (CPD) Take 1 capsule by mouth once daily. - tiZANidine HCl 4 mg capsule Take 4 mg by mouth twice daily as needed. - buPROPion HCL 200 mg 12 hr tablet Take 200 mg by mouth twice daily. - ALPRAZolam (XANAX) 0.5 mg tablet Take 0.5 mg by mouth three times daily as needed. - omeprazole (PRILOSEC) 20 mg capsule 40 mg once daily. - ezetimibe (ZETIA) 10 mg tablet Take 1 tablet by mouth once daily. - atorvastatin (LIPITOR) 40 mg tablet Take 1 tablet by mouth daily at bedtime. - clopidogrel (PLAVIX) 75 mg tablet TAKE 1 TABLET BY MOUTH ONCE DAILY FOR 14 DAYS - aspirin, enteric coated (ASPIRIN, ENTERIC COATED) 81 mg EC tablet Take 81 mg by mouth once daily. - cholecalciferol (VITAMIN D) 1,000 unit tab tablet Take 1 capsule by mouth once daily. Problem List As Of Date 08/03/2022 Noted Resolved GOITER NOS [E04.9] 04/24/2002 OTHER MALAISE AND FATIGUE [R53.81, R53.83] 04/24/2002 PVD (peripheral vascular disease) (HCC) [I73.9] 03/19/2019 Essential hypertension [I10] 03/19/2019 Dyslipidemia [E78.5] 03/19/2019 Chest pain [R07.9] 03/19/2019 Dyspnea on exertion [R06.09] 03/19/2019 Bilateral carotid artery stenosis [I65.23] 04/17/2019 Bilateral arm weakness [R29.898] 04/17/2019 Atherosclerosis [I70.90] 04/17/2019 Renal artery stenosis (HCC) [I70.1] 05/08/2019 TIA (transient ischemic attack) [G45.9] 01/26/2020 01/27/2020 Hyperventilation [R06.4] 01/27/2020 04/14/2021 PTSD (post-traumatic stress disorder) [F43.10] 09/11/2019 Hyperlipidemia [E78.5] 04/14/2020 Hiatal hernia [K44.9] 04/06/2020 Hemorrhoids [K64.9] 04/06/2020 Tinnitus, bilateral [H93.13] 07/12/2022 Asymmetrical sensorineural hearing loss [H90.3] 07/12/2022 Encounter Status:Closed by NICOLE BARILLAS on 08/04/22 [facility] CNTHERAPYon 07-27-2022 CNTHERAPY OT/PT/Speech Visit (PTAMCF) REGLA PRAJAPATI ([id number]) 1970 F Date Time Provider Department 07/27/22 1:00 PM ISHA SMITH [facility] Date Time Provider Department [place] 07/27/2022 1:00 PM [id number], KARA [facility] Reason for Visit: Physical Therapy [503] Primary Visit Diagnosis:Dizziness [R42] Other Visit Diagnoses:Cervicalgia [M54.2] Balance problem [R26.89] Allergies As of Date: 07/27/2022 Noted Allergy Reaction AMLODIPINE 05/08/2019 7 - Swelling Comments: BLE swelling PENICILLINS 04/24/2002 Date Reviewed: 07/26/2022 Reviewed by: WESTON Reza - Fully Assessed Prescriptions as of 07/27/2022 - lisinopril 2.5 mg tablet Take 2 tablets by mouth every morning. And 2.5mg qpm - terbinafine HCl (LAMISIL) 250 mg tablet Take 250 mg by mouth once daily. - cloNIDine HCl (CATAPRES) 0.1 mg tablet Take 1 tablet by mouth every 8 hours as needed (take if systolic BP>170). - pantoprazole DR (PROTONIX) 40 mg tablet Take 40 mg by mouth once daily. - SYNTHROID 50 mcg tablet - conjugated estrogens (PREMARIN) vaginal cream - naltrexone capsule 4.5 mg (CPD) Take 1 capsule by mouth once daily. - tiZANidine HCl 4 mg capsule Take 4 mg by mouth twice daily as needed. - buPROPion HCL 200 mg 12 hr tablet Take 200 mg by mouth twice daily. - ALPRAZolam (XANAX) 0.5 mg tablet Take 0.5 mg by mouth three times daily as needed. - omeprazole (PRILOSEC) 20 mg capsule 40 mg once daily. - ezetimibe (ZETIA) 10 mg tablet Take 1 tablet by mouth once daily. - atorvastatin (LIPITOR) 40 mg tablet Take 1 tablet by mouth daily at bedtime. - clopidogrel (PLAVIX) 75 mg tablet TAKE 1 TABLET BY MOUTH ONCE DAILY FOR 14 DAYS - aspirin, enteric coated (ASPIRIN, ENTERIC COATED) 81 mg EC tablet Take 81 mg by mouth once daily. - cholecalciferol (VITAMIN D) 1,000 unit tab tablet Take 1 capsule by mouth once daily. [facility] CNOVon 07-26-2022 CNOV Office Visit (KENDELL ) REGLA PRAJAPATI ([id number]) 1970 F Date Time Provider Department 07/26/22 12:30 PM CARMEN LOMBARDI During your visit today, we recorded the following information about you: Carmen Lombardi, AUD 07/26/2022 3:59 PM Signed [facility] [place] [facility] Vestibular Test Battery Report Name: Regla Prajapati [facility]#: [id number] Date of Service: 07/26/2022 Date of : 1970 Age: [age] year old Referred by: Fabien Gonzalez PA-C And is a patient of Renetta Ridley CNP, QUINTEN Referred for: Evaluation of suspected change in hearing, tinnitus, or balance. Referral documented: In an order in [facility] Pretest Instructions: The following pretest instructions were not completed prior to testing: Patient took Xanax this morning, she takes daily for the last 3-4 years. Impressions and Recommendations OVERALL IMPRESSIONS: Essentially Normal vestibular evaluation. Overall low likelihood of active inner ear balance system contributors to patient's symptoms. Regla Prajapati presents with dizziness described as lightheadedness and extreme unsteadiness. Symptoms began in 2019, with the most recently experienced symptoms occurring yesterday. Symptoms are worse since onset. Symptoms last for seconds in duration and occur sporadically. Sharon reports she experiences nausea after the dizziness lasts for a few hours in duration. Symptoms are provoked by riding in the car, stress, taking a shower, washing dishes and looking up. Associated symptoms include nausea, hot flashes blurred vision, double vision, light sensitivity, sound sensitivity, neck pain, weakness and confusion/memory issues. Symptoms are alleviated by lying down and resting. Regla denies recent head or neck injury. Regla denies any history of headaches or migraines. Regla has fallen multiple times in the past year. However, Sharon denies any significant injuries with the falls. She is restricting activities due to symptoms. Regla has participated in vestibular rehabilitation to help address current symptoms. Other relevant medical history includes peripheral vascular disease, essential hypertension, atherosclerosis, renal artery stenosis, hyperlipidemia, asymmetric SNHL (left ear slightly worse), bilateral tinnitus, PTSD and bilateral carotid artery stenosis. Today's evaluation revealed the following: There were essentially no indications of peripheral vestibular system pathway involvement noted. Normal investigation of superior and inferior vestibular nerve function via examination of the semicircular canals. Please note the following: could not compare interaural amplitude difference between cVEMP responses because responses could not be obtained in each ear with the same form of stimulation (bone vs air conduction.) Also, N1 latency was delayed in the right ear, which could indicate retrolabyrinthine/cent ral impairments localized to the vestibulospinal tract. However, I do not feel like these possible abnormalities are correlated with patient symptoms. Patient had normal responses (robust and symmetrical) responses to caloric irrigations and rotational chair testing. There were no subjective or objective indications of Benign Paroxysmal Positional Vertigo (BPPV). Normal oculomotor examination. Normal observation of gait and transfers. RECOMMENDATIONS: * Continue medical follow-up with Fabien Gonzalez PA-C. * Continue with scheduled Vestibular AND Balance therapy (Physical Therapy) to help reduce symptoms with a focus on neck mobility/pain and fall risk prevention. * Consider re-evaluation as medically indicated * Maintain a healthy sleep schedule in addition to diet, hydration, and exercise to help body function overall. The results and recommendations were explained to Regla Prajapati and she expressed understanding of the information. History Present Illness SUMMARY OF PAST MEDICAL HISTORY: Encounter with Fabien Gonzalez on 07/12/2022: Dizziness Lightheadedness Asymmetrical sensorineural hearing loss (primary encounter diagnosis) Tinnitus, bilateral Arachnoid cyst - Consult to Neurology for further evaluation of dizziness, CT findings - Discussed consult to Vestibular PT, Vestibular Test Battery for further evaluation; patient elects Vestibular Test Battery, wishes to find more definitive etiology of symptoms 51 year old female presents to clinic for evaluation of buzzing in ears. Patient reports 6-12 months of buzzing (left ear worse than right ear). Patient reports burst of dizziness, lightheadedness onset with sudden movements of head or neck, looking upward, stooping over (example: at grocery store, reaching into laundry machine). Episodes last a few seconds and resolve on their own, however, patient reports aftershock including nausea that ling (more content not included)... 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 REGLA PRAJAPATI : 1970 Age: 51 years Gender: F History of hypertension. Primary rhythm: sinus. Height: 157.00 cm BSA: 1.68 m Weight: 65.00 kg BMI: 26.4 kg/m Heart rate 74 bpm Blood pressure 114/85 mmHg Color Doppler was utilized to interrogate the cardiac valves assessed and spectral Doppler was utilized to determine the flow velocities and pressure gradients reported in this exam. Myocardial strain analysis was performed in this exam to aid in the assessment of cardiac function. MEASUREMENTS: Value Indexed Normal Max aortic dimension 2.1 cm Ao < 3.8 Left atrial volume 27 ml (biplane A-L) 16 ml/m Gayle <= 34 LV ID (diastole) 3.3 cm (2D) 1.95 cm/m LV ID (systole) 2.3 cm (2D) 1.35 cm/m IVS, leaflet tips 0.8 cm (2D) Posterior wall thickness 0.8 cm (2D) Left ventricular mass 67 g (2D) 40 g/m Global peak long strain -20.2 % LV stroke volume 27 ml (2D biplane) LV end diastolic volume 46 ml (2D biplane) 27.0 ml/m 29<=EDVi<62 LV end systolic volume 18 ml (2D biplane) 10.9 ml/m Ejection Fraction 60 % (2D biplane) EF > 54 FINDINGS: LEFT VENTRICLE The left ventricle is small. Left ventricular systolic function is normal. Global LV myocardial strain is normal. Normal left ventricular diastolic function. Mitral annular lateral E/e': 9.3. Mitral annular septal E/e': 13.2. Wall Motion: All scored segments are normal. RIGHT VENTRICLE The right ventricle is normal in size. Right ventricular systolic function is normal. RV systolic tissue Doppler velocity is 7.5 cm/s. Estimated right atrial pressure is 3 mmHg based on IVC assessment. LEFT ATRIUM The left atrial cavity is normal in size. RIGHT ATRIUM The right atrial cavity is normal in size. Inferior Vena Cava: The inferior vena cava appears normal measuring 1.3 cm. The vessel decreases greater than 50 percent with inspiration. MITRAL VALVE The mitral valve leaflets are structurally normal. There is no mitral valve regurgitation. The pressure half time is 50 msec. The peak mitral E/A ratio is 0.93. The average mitral E/e' ratio is 11.2. The mitral flow deceleration time is 172 msec. TRICUSPID VALVE The tricuspid valve leaflets are structurally normal. There is no tricuspid valve regurgitation. AORTIC VALVE The aortic valve cusps are structurally normal. There is no aortic valve regurgitation. Tricuspid aortic valve. The peak gradient is 6 mmHg (peak velocity = 122.0 cm/s). PULMONIC VALVE The pulmonic valve was not seen or not interrogated. There is no pulmonic valve regurgitation. AORTA The visualized aorta is normal in size. Measurements - Sinus: 2.1 cm. PULMONARY ARTERIES The pulmonary arteries are unseen or not interrogated. INTERATRIAL SEPTUM The interatrial septum is normal. INTERVENTRICULAR SEPTUM The interventricular septum is normal. PERICARDIUM The pericardium is normal. CONCLUSIONS: - Exam indication: Abnormal ECG - The left ventricle is small. Left ventricular systolic function is normal. EF = 60 5% (2D biplane) Normal left ventricular diastolic function. - The right ventricle is normal in size. Right ventricular systolic function is normal. No significant valvular abnormalities. - Exam was compared with the prior echocardiographic exam performed on 01/27/20. No significant change. * * * Final * * * [employer] Image : [id number] Normal [facility] CNTHERAPYon 07-19-2022 CNTHERAPY OT/PT/Speech Visit (MAGDALENO) REGLA PRAJAPATI ([id number]) 1970 F Date Time Provider Department 07/19/22 2:45 PM YANELIS FRENCH Date Time Provider Department Center 07/19/2022 2:45 PM [id number] FRENCH [facility] Reason for Visit: PT Eval [747] Primary Visit Diagnosis:Dizziness [R42] Other Visit Diagnosis:Lightheadedn ess [R42] Allergies As of Date: 07/19/2022 Noted Allergy Reaction AMLODIPINE 05/08/2019 7 - Swelling Comments: BLE swelling PENICILLINS 04/24/2002 Date Reviewed: 06/22/2022 Reviewed by: Yen Beth MA - Fully Assessed Prescriptions as of 07/19/2022 - lisinopril (ZESTRIL, PRINIVIL) 5 mg tablet Take 1 tablet by mouth every morning. And 2.5mg qpm - terbinafine HCl (LAMISIL) 250 mg tablet Take 250 mg by mouth once daily. - cloNIDine HCl (CATAPRES) 0.1 mg tablet Take 1 tablet by mouth every 8 hours as needed (take if systolic BP>170). - pantoprazole DR (PROTONIX) 40 mg tablet Take 40 mg by mouth once daily. - SYNTHROID 50 mcg tablet - conjugated estrogens (PREMARIN) vaginal cream - naltrexone capsule 4.5 mg (CPD) Take 1 capsule by mouth once daily. - tiZANidine HCl 4 mg capsule Take 4 mg by mouth twice daily as needed. - buPROPion HCL 200 mg 12 hr tablet Take 200 mg by mouth twice daily. - ALPRAZolam (XANAX) 0.5 mg tablet Take 0.5 mg by mouth three times daily as needed. - omeprazole (PRILOSEC) 20 mg capsule 40 mg once daily. - ezetimibe (ZETIA) 10 mg tablet Take 1 tablet by mouth once daily. - atorvastatin (LIPITOR) 40 mg tablet Take 1 tablet by mouth daily at bedtime. - clopidogrel (PLAVIX) 75 mg tablet TAKE 1 TABLET BY MOUTH ONCE DAILY FOR 14 DAYS - aspirin, enteric coated (ASPIRIN, ENTERIC COATED) 81 mg EC tablet Take 81 mg by mouth once daily. - cholecalciferol (VITAMIN D) 1,000 unit tab tablet Take 1 capsule by mouth once daily. 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 MG MAMM SCREEN RENETTA W CAD, 01/23/2017. MG MAMM RENETTA SCRN W CAD DIG, 01/04/2016. MG MAMM SCREEN RENETTA W CAD, 02/13/2020. INDICATIONS: Screening mammography Calculator Name NCI Breast Cancer Risk Assessment Tool 5 Year Breast Cancer Risk 0.70% Lifetime Breast Cancer Risk 6.60% Personal Breast Cancer No Personal Ovarian Cancer No Treatments None Family Cancers Grandmother-paternal with colon cancer at age 76; Uncle-paternal with pancreas/lung cancer at age 50. LOCATION: [facility] BREAST COMPOSITION: Heterogeneously dense,which may obscure small masses. FINDINGS: DIAGNOSTIC CATEGORY 1--NEGATIVE. RIGHT BREAST: No significant suspicious finding. No significant change has occurred. LEFT BREAST: No significant suspicious finding. No significant change has occurred. RECOMMENDATIONS: ROUTINE MAMMOGRAM AND CLINICAL EVALUATION IN 12 MONTHS. PLEASE NOTE: A NORMAL MAMMOGRAM DOES NOT EXCLUDE THE POSSIBILITY OF BREAST CANCER. A CLINICALLY SUSPICIOUS PALPABLE LUMP SHOULD BE BIOPSIED. Dictated by: Fior Torres M.D. on 07/14/2022 at 07:46 Approved by: Fior Torres M.D. on 07/14/2022 at 07:50 Normal [facility] CNOVon 07-12-2022 CNOV Office Visit (OTOLLN ) ALOREGLA Li ([id number]) 1970 F Date Time Provider Department 07/12/22 10:30 AM FABIEN GONZALEZ During your visit today, we recorded the following information about you: Temperature Pulse Blood pressure 98.7 degrees 95/minute 119/88 Fabien Gonzalez PA-C 07/12/2022 12:48 PM Signed [facility] [place] [facility] NOTE CC: Regla Prajapati is a 51 year old female who is self referred for buzzing in ears. ASSESSMENT: Dizziness Lightheadedness Asymmetrical sensorineural hearing loss (primary encounter diagnosis) Tinnitus, bilateral Arachnoid cyst PLAN: - Reviewed external CT Brain, CTA Radiologist report performed 05/11/2022 with patient; all patient questions answered - Discussed results of hearing test with patient; all patient questions answered, Medical Clearance letter generated, HAE scheduling information provided - Educated patient on tinnitus and conservative management options; patient education handout provided - Consult to Neurology for further evaluation of dizziness, CT findings - Discussed consult to Vestibular PT, Vestibular Test Battery for further evaluation; patient elects Vestibular Test Battery, wishes to find more definitive etiology of symptoms - Advised patient on red flag warning signs, symptoms that warrant immediate evaluation in ER - Follow up after Vestibular Test Battery; sooner if clinically indicated Fabien Gonzalez PA-C [facility] HPI: 51 year old female presents to clinic for evaluation of buzzing in ears. Patient reports 6-12 months of buzzing (left ear worse than right ear). Patient reports burst of dizziness, lightheadedness onset with sudden movements of head or neck, looking upward, stooping over (example: at grocery store, reaching into laundry machine). Episodes last a few seconds and resolve on their own, however, patient reports aftershock including nausea that lingers until she vomits, sometimes most of the day. Patient unsure about changes in hearing, tinnitus during episodes. Overall, patient is satisfied with her hearing, notes occasional situations where she is asking people to repeat themselves. Patient denies history of ear infections, PE tubes. Patient denies history of noise exposure, trauma. Patient denies family history of hearing loss. Hearing test today 07/12/2022: IMPRESSIONS RIGHT EAR: Sensorineural hearing loss consistent with presbycusis LEFT EAR: Sensorineural hearing loss PURE TONE AUDIOMETRY AND SPEECH TESTING Description of procedure: This test is an objective evaluation hearing sensitivity via air and bone conduction and speech recognition testing. CPT code:44843 RIGHT EAR: Hearing Sensitivity: Hearing sensitivity within normal limits to 2K Hz sloping to a mild High Frequency Sensorineural Hearing Loss. Word Recognition Score: Excellent (100%). WRS is consistent with hearing sensitivity. Words were presented at 50 dB HL is above (greater than or equal to 60 dB HL) intensity level for average conversational speech. The NU-6 Ordered by Difficulty Word List (10 words) was used for testing. LEFT EAR: Hearing Sensitivity: Mild Sensorineural Hearing Loss above 1K Hz. Word Recognition Score: Excellent (100%). WRS is consistent with hearing sensitivity. Words were presented at 60 dB HL is above (greater than or equal to 60 dB HL) intensity level for average conversational speech. The NU-6 Ordered by Difficulty Word List (10 words) was used for testing. Past medical history: PAST MEDICAL HISTORY Diagnosis Date Allergic rhinitis, cause unspecified Allergy, airborne subst Anxiety state Dyspareunia Essential hypertension Fibromyalgia Genital herpes, unspecified under control Genital herpes Irritable bowel syndrome Irritable bowel Other and unspecified ovarian cyst 5 y/a Ovarian cyst Peripheral vascular disease (HCC) extensive, S/p right carotid stent and right iliac artery stent Renal artery stenosis (HCC) right Varicella without mention of complication Chickenpox Past surgical history: PAST SURGICAL HISTORY Procedure Laterality Date COLONOSCOPY FLX DX W/COLLJ SPEC WHEN PFRMD 04/07/02 Colonoscopy LAPS ABD PRTMANDOMENTUM DX W/WO SPEC BR/WA SPX 5 yrs ago Laparoscopy Current medication(s): Current Outpatient Medications Medication Sig lisinopril (ZESTRIL, PRINIVIL) 5 mg tablet Take 1 tablet by mouth every morning. And 2.5mg qpm terbinafine HCl (LAMISIL) 250 mg tablet Take 250 mg by mouth once daily. cloNIDine HCl (CATAPRES) 0.1 mg tablet Take 1 tablet by mouth every 8 hours as needed (take if systolic BP>170). pantoprazole DR (PROTONIX) 40 mg tablet Take 40 mg by mouth once daily. SYNTHROID 50 mcg tablet conjugated estrogens (PREMARIN) vaginal cream naltrexone capsule 4.5 mg (CPD) Take 1 capsule by mouth once daily. tiZAN (more content not included)... Normal [facility] CNOV Office Visit (OTAULO ) REGLA PRAJAPATI ([id number]) 1970 F Date Time Provider Department 07/12/22 10:00 AM VALENTINA SINGLETARY During your visit today, we recorded the following information about you: Weston Cotton, CCC-A 07/12/2022 10:25 AM Signed [facility] [place] AUDIOLOGIC EVALUATION REPORT Name: Regla Prajapati CCF#: [id number] Date of Service: 07/12/2022 Date of : 1970 Age: [age] year old Referred by: Fabien Gonzalez [id number] [facility] [id number] Referred for: Evaluation of the cause of disorder of hearing, tinnitus, or balance. Referral documented: In an order in [facility] Patient's major complaints: Complaints of recent history of constant tinnitus buzzing type noise left ear greater than the right ear. Sharon reported a history of episodes of dizziness with changes in position. She feels the dizzy episodes are becoming more frequent and she has nausea and lightheadedness. The patient said the dizziness occurs when she turns her head, when she looks up or if she owen down and then returns to an upright position. She denies URI, COVID. Sharon feels overall her hearing is satisfactory but does notice some problem on the phone. Regla Prajapati was seen for an initial audiologic evaluation. See SmartForm Audiogram for additional reported history and symptoms. IMPRESSIONS RIGHT EAR: Sensorineural hearing loss consistent with presbycusis LEFT EAR: Sensorineural hearing loss AUDIOLOGIC EVALUATION Following is a brief interpretation of the obtained findings from the audiologic evaluation. Refer to the Auditory Test Record for complete audiometric results. The patient was counseled about the test findings and appropriate audiologic recommendations were made. SUMMARY: Audiogram can be viewed under Forms/Audiology/SmartF orm. OTOSCOPY RIGHT EAR: Otoscopic inspection revealed clear ear canal, Tympanic Membrane intact with an identifiable cone of light. LEFT EAR: Otoscopic inspection revealed clear ear canal, Tympanic Membrane intact with an identifiable cone of light. TYMPANOMETRY Description of procedure: This test is an objective evaluation of middle ear function. CPT code: 01865 RIGHT EAR: Normal ME pressure and TM compliance (mobility). LEFT EAR: Normal ME pressure and TM compliance (mobility). ACOUSTIC REFLEXES Description of procedure: This test is an objective measure of auditory and facial nerve pathways. CPT code: 39409, 21516 RIGHT EAR PROBE EAR: (ipsi right stimulus ear; contralateral left stimulus ear): Acoustic Reflex Pattern Did not test Acoustic Reflex Decay (left stimulus ear): Did not test. LEFT EAR PROBE EAR: (ipsi left stimulus ear; contralateral right stimulus ear): Acoustic Reflex Pattern Did not test Acoustic Reflex Decay (right stimulus ear):Did not test. PURE TONE AUDIOMETRY AND SPEECH TESTING Description of procedure: This test is an objective evaluation hearing sensitivity via air and bone conduction and speech recognition testing. CPT code:99705 RIGHT EAR: Hearing Sensitivity: Hearing sensitivity within normal limits to 2K Hz sloping to a mild High Frequency Sensorineural Hearing Loss. Word Recognition Score: Excellent (100%). WRS is consistent with hearing sensitivity. Words were presented at 50 dB HL is above (greater than or equal to 60 dB HL) intensity level for average conversational speech. The NU-6 Ordered by Difficulty Word List (10 words) was used for testing. LEFT EAR: Hearing Sensitivity: Mild Sensorineural Hearing Loss above 1K Hz. Word Recognition Score: Excellent (100%). WRS is consistent with hearing sensitivity. Words were presented at 60 dB HL is above (greater than or equal to 60 dB HL) intensity level for average conversational speech. The NU-6 Ordered by Difficulty Word List (10 words) was used for testing. RECOMMENDATIONS 1. ENT follow-up with Fabien Gonzalez PA-C, [facility] scheduled today. Also, Sharon will need medical clearance for amplification. 2. The patient is an appropriate candidate for amplification pending medical clearance. Patient advised/counseled. Sharon will return for a Hearing Needs Assessment appointment, if she wants to proceed with obtaining hearing aids through [facility]. 3. Annual recheck. 4. Hearing conservation. 5. The patient was counseled and given written information regarding effective communication strategies to enhance communication ability. 6. The patient was counseled and given written educational information re: the relationship between hearing loss and tinnitus, as well as, other common causes of tinnitus and options for tinnitus management. Beni Cotton, GRAYSON/A Clinical Service Clerk GROVES Abbrev- iation Definition Degree of hearing sensitivity dB range WNL within normal limits WNL 0 - 20 SNHL sensori (more content not included)... Normal [facility] CNPNon 07-04-2022 CNPN Telephone (KIDMMN) REGLA PRAJAPATI ([id number]) 1970 F Date Time Provider Department 07/04/22 TING CAMILO During your visit today, we recorded the following information about you: Ting Camilo MD 07/04/2022 1:57 PM Signed I called Alo Martines to review 24hr ABPM results. Mild intermittent BP elevations during the day, trended up by evening. Took 5mg lisinopril at midnight. At 2am, her BP dropped down as low as 59 systolic by 5am, did not recover until after noon. This has been a patterrn with her, dropping BP after evening lisinopril. She only takes the am lisinopril if her systolic is >120, but she does not get the hypotensive response then. Has needed am dose 2x/week, but last week needed it 5 times. Will adjust dosing to 5mg qam, 2.5mg qpm, she will send back BP's next week. Ting Camilo MD Allergies As of Date: 07/04/2022 Noted Allergy Reaction AMLODIPINE 05/08/2019 7 - Swelling Comments: BLE swelling PENICILLINS 04/24/2002 Date Reviewed: 06/22/2022 Reviewed by: Yen Beth MA - Fully Assessed Reason for Visit: Results [95] Primary Visit Diagnosis:Essential hypertension [I10] Order(s):lisinopril (ZESTRIL, PRINIVIL) 5 mg tabletTake 1 tablet by mouth every morning. And 2.5mg qpmDisp: Rfl: Prescriptions as of 07/04/2022 - lisinopril (ZESTRIL, PRINIVIL) 5 mg tablet Take 1 tablet by mouth every morning. And 2.5mg qpm - terbinafine HCl (LAMISIL) 250 mg tablet Take 250 mg by mouth once daily. - cloNIDine HCl (CATAPRES) 0.1 mg tablet Take 1 tablet by mouth every 8 hours as needed (take if systolic BP>170). - pantoprazole DR (PROTONIX) 40 mg tablet Take 40 mg by mouth once daily. - SYNTHROID 50 mcg tablet - conjugated estrogens (PREMARIN) vaginal cream - naltrexone capsule 4.5 mg (CPD) Take 1 capsule by mouth once daily. - tiZANidine HCl 4 mg capsule Take 4 mg by mouth twice daily as needed. - buPROPion HCL 200 mg 12 hr tablet Take 200 mg by mouth twice daily. - ALPRAZolam (XANAX) 0.5 mg tablet Take 0.5 mg by mouth three times daily as needed. - omeprazole (PRILOSEC) 20 mg capsule 40 mg once daily. - ezetimibe (ZETIA) 10 mg tablet Take 1 tablet by mouth once daily. - atorvastatin (LIPITOR) 40 mg tablet Take 1 tablet by mouth daily at bedtime. - clopidogrel (PLAVIX) 75 mg tablet TAKE 1 TABLET BY MOUTH ONCE DAILY FOR 14 DAYS - aspirin, enteric coated (ASPIRIN, ENTERIC COATED) 81 mg EC tablet Take 81 mg by mouth once daily. - cholecalciferol (VITAMIN D) 1,000 unit tab tablet Take 1 capsule by mouth once daily. Problem List As Of Date 07/04/2022 Noted Resolved GOITER NOS [E04.9] 04/24/2002 OTHER MALAISE AND FATIGUE [R53.81, R53.83] 04/24/2002 PVD (peripheral vascular disease) (HCC) [I73.9] 03/19/2019 Essential hypertension [I10] 03/19/2019 Dyslipidemia [E78.5] 03/19/2019 Chest pain [R07.9] 03/19/2019 Dyspnea on exertion [R06.09] 03/19/2019 Bilateral carotid artery stenosis [I65.23] 04/17/2019 Bilateral arm weakness [R29.898] 04/17/2019 Atherosclerosis [I70.90] 04/17/2019 Renal artery stenosis (HCC) [I70.1] 05/08/2019 TIA (transient ischemic attack) [G45.9] 01/26/2020 01/27/2020 Hyperventilation [R06.4] 01/27/2020 04/14/2021 PTSD (post-traumatic stress disorder) [F43.10] 09/11/2019 Hyperlipidemia [E78.5] 04/14/2020 Hiatal hernia [K44.9] 04/06/2020 Hemorrhoids [K64.9] 04/06/2020 Prescriptions ordered this encounter Disp Refills Start End LISINOPRIL 5 MG TABLET 07/04/2022 Class: Med Update Route: ORAL Sig: Take 1 tablet by mouth every morning. And 2.5mg qpm Medications Discontinued During This Encounter Prescriptions - lisinopril (ZESTRIL, PRINIVIL) 10 mg tablet (Discontinued) Take 1 tablet by mouth twice daily. Encounter Status:Closed by TING CAMILO on 07/04/22 Normal [facility] Basophils Auto (Bld) [#/Vol] Ordered By: Shahzad Obrien on 06-25-2022 Basophils (Bld) [#/Vol] 0.0 10*3/uL 0.0-0.[address] [facility] Basophils/100 WBC Auto (Bld) Ordered By: Shahzad Obrien on 06-25-2022 Basophils/100 WBC (Bld) 0.3 % . [facility] Body fluid albumin measureme nt (mass/volume)Ordered By: Shahzad Obrien on 06-25-2022 Albumin (Body fld) [Mass/Vol] 4.3 g/dL 3.2-5.[address] [facility] Creatinine and Glomerular fi ltration rate.predicted panel (S/P/Bld)Ordered By: Shahzad Obrien on 06-25-2022 Creatinine [Mass/Vol] 1.17 mg/dL 0.44-1.03 [facility] Eosinophils Auto (Bld) [#/Vo l]Ordered By: Shahzad Obrien on 06-25-2022 Eosinophils (Bld) [#/Vol] 0.0 10*3/uL 0.0-0.[address] [facility] Eosinophils/100 WBC Auto (Bl d)Ordered By: Shahzad Obrien on 06-25-2022 Eosinophils/100 WBC (Bld) 0.3 % . [facility] Erythrocyte distribution wid th Auto (RBC) [Ratio]Ordered By: Shahzad Obrien on 06-25-2022 Erythrocyte distribution width (RBC) [Ratio] 13.2 % 11.9-15.[address] [facility] Estimated glomerular filtrat ion rate (GFR) non- AmericanOrdered By: Shahzad Obrien on 06-25-2022 GFR/1.73 sq M.predicted among non-blacks MDRD (S/P/Bld) [Vol rate/Area] 49 mL/Min [facility] Globulin Calc (S) [Mass/Vol] Ordered By: Shahzad Obrien on 06-25-2022 Globulin (S) [Mass/Vol] 3.1 g/dL [facility] Hematocrit Auto (Bld) [Volum e fraction]Ordered By: Shahzad Obrien on 06-25-2022 Hematocrit (Bld) [Volume fraction] 41.9 % 34.0-46.[address] [facility] Hemoglobin [Mass/volume] in BloodOrdered By: Shahzad Obrien on 06-25-2022 Hemoglobin (Bld) [Mass/Vol] 13.8 g/dL 11.8-15.[address] [facility] Laboratory - Chemistry and C hemistry - challengeOrdered By: Shelton Lala on 06-25-2022 Lipase [Catalytic activity/Vol] 36.0 U/L 22-[address] [facility] Leukocytes [#/volume] correc flo for nucleated erythrocytes in Blood by Automated counOrdered By: Shahzad Obrien on 06-25-2022 WBC corrected for nucl RBC Auto (Bld) [#/Vol] 12.4 10*3/uL 3.8-11.[address] [facility] Lymphocytes Auto (Bld) [#/Vo l]Ordered By: Shahzad Obrien on 06-25-2022 Lymphocytes (Bld) [#/Vol] 0.6 10*3/uL 1.00-4.[address] [facility] Lymphocytes/100 WBC Auto (Bl d)Ordered By: Shahzad Obrien on 06-25-2022 Lymphocytes/100 WBC (Bld) 5.2 % . [facility] MCH Auto (RBC) [Entitic mass ]Ordered By: Shahzad Obrien on 06-25-2022 MCH (RBC) [Entitic mass] 29.8 pg 24.7-34.[address] [facility] MCHC Auto (RBC) [Mass/Vol]Or dered By: Shahzad Obrien on 06-25-2022 MCHC (RBC) [Mass/Vol] 32.9 g/dL 32.0-35.0 [facility] MCV Auto (RBC) [Entitic vol] Ordered By: Shahzad Obrien on 06-25-2022 MCV (RBC) [Entitic vol] 90.5 fL 80-100 [facility] Monocyte distribution width [Entitic volume] in Blood by AutomatedOrdered By: Shahzad Obrien on 06-25-2022 Monocyte distribution width Auto (Bld) [Entitic vol] 22.26 % 0.00-20.[address] [facility] Comment on above: For adults in ED, MD W > 20.0 may be associated with a higher risk of sepsis during the first 12 hrs of hospital admission Monocytes Auto (Bld) [#/Vol] Ordered By: Shahzad Obrien on 06-25-2022 Monocytes (Bld) [#/Vol] 0.2 10*3/uL 0.0-0.[address] [facility] Monocytes/100 WBC Auto (Bld) Ordered By: Shahzad Obrien on 06-25-2022 Monocytes/100 WBC (Bld) 1.9 % . [facility] Neutrophils Auto (Bld) [#/Vo l]Ordered By: Shahzad Obrien on 06-25-2022 Neutrophils (Bld) [#/Vol] 11.5 10*3/uL 1.8-7.[address] [facility] Neutrophils/100 WBC Auto (Bl d)Ordered By: Shahzad Obrien on 06-25-2022 Neutrophils/100 WBC (Bld) 92.3 % . [facility] No Panel InformationOrdered By: Shahzad Obrien on 06-25-2022 Estimated GFR () 59 mL/Min [facility] Comment on above: GFR estimated refere nce range: According to KDOQI guidelines, <60 ml/min/1.73m2 is sufficient to diagnose a patient with chronic kidney disease. Pharmacy Creatinine Clearance (Chem 50.[address] [facility] Nucleated erythrocytes [Pres ence] in Blood by Automated countOrdered By: Shahzad Obrien on 06-25-2022 Nucleated RBC Auto Ql (Bld) 0.0 /100{WBC} 0-0.[address] [facility] Platelet mean volume Auto (B ld) [Entitic vol]Ordered By: Shahzad Obrien on 06-25-2022 Platelet mean volume (Bld) [Entitic vol] 7.0 fL 6.3-10.[address] [facility] Platelets Auto (Bld) [#/Vol] Ordered By: Shahzad Obrien on 06-25-2022 Platelets (Bld) [#/Vol] 276 10*3/uL 150-[address] [facility] Protein [Mass/volume] in Ser um or PlasmaOrdered By: Shahzad Obrien on 06-25-2022 Protein [Mass/Vol] 7.4 g/dL 6.1-7.9 [facility] RBC Auto (Bld) [#/Vol]Ordere d By: Shahzad Obrien on 06-25-2022 RBC (Bld) [#/Vol] 4.63 10*6/uL 3.60-5.00 [facility] Serum or plasma alanine mejía otransferase measurement without P-5'-P (enzymatic activiOrdered By: Shahzad Obiren on 06-25-2022 ALT No additional P-5'-P [Catalytic activity/Vol] 36 U/L 10-[address] [facility] Serum or plasma albumin/glob ulin mass ratioOrdered By: Shahzad Obrien on 06-25-2022 Albumin/Globulin [Mass ratio] 1.4 {ratio} [facility] Serum or plasma alkaline annabelle sphatase measurement (enzymatic activity/volume)Ordered By: Shahzad Obrien on 06-25-2022 ALP [Catalytic activity/Vol] 110 U/L 32-[address] [facility] Serum or plasma anion gap de terminationOrdered By: Shahzad Obrien on 06-25-2022 Anion gap [Moles/Vol] 17.7 mmol/L 6.0-15.0 [facility] Serum or plasma aspartate am inotransferase measurement (enzymatic activity/volume)Ordered By: Shahzad Obrien on 06-25-2022 AST [Catalytic activity/Vol] 26 U/L 10-[address] [facility] Serum or plasma calcium laureen urement (mass/volume)Ordered By: Shahzad Obrien on 06-25-2022 Calcium [Mass/Vol] 9.6 mg/dL 8.2-10.2 [facility] Serum or plasma chloride silverio surement (moles/volume)Ordered By: Shahzad Obrien on 06-25-2022 Chloride [Moles/Vol] 101 mmol/L 95-114 [facility] Serum or plasma glucose laureen urement (mass/volume)Ordered By: Shahzad Obrien on 06-25-2022 Glucose [Mass/Vol] 127 mg/dL 70-100 [facility] Comment on above: ADA recommended refe rence rangeRandom Glucose Reference Range is dependent on time and content of last meal. Glucose of more than 200 mg/dL in a nonstressed, ambulatory subject supports the diagnosis of Diabetes Mellitus. Serum or plasma potassium me asurement (moles/volume)Ordered By: Shahzad Obrien on 06-25-2022 Potassium [Moles/Vol] 4.2 mmol/L 3.5-5.1 [facility] Serum or plasma sodium measu rement (moles/volume)Ordered By: Shahzad Obrien on 06-25-2022 Sodium [Moles/Vol] 137 mmol/L 136-146 [facility] Serum or plasma total biliru bin measurement (mass/volume)Ordered By: Shahzad Obrien on 06-25-2022 Bilirubin [Mass/Vol] 0.8 mg/dL 0.3-1.2 [facility] Serum or plasma total carbon dioxide measurement (moles/volume)Ordered By: Shahzad Obrien on 06-25-2022 CO2 [Moles/Vol] 22.5 mmol/L 22.0-30.0 [facility] Serum or plasma urea nitroge n measurement (mass/volume)Ordered By: Shahzad Obrien on 06-25-2022 Urea nitrogen [Mass/Vol] 14 mg/dL 9-[address] [facility] WBC Auto (Bld) [#/Vol]Ordere d By: Shahzad Obrien on 06-25-2022 WBC (Bld) [#/Vol] 12.4 10*3/uL 3.8-11.6 [facility] CNOVon 06-22-2022 CNOV Office Visit (KIDMMN ) REGLA PRAJAPATI ([id number]) 1970 F Date Time Provider Department 06/22/22 3:00 PM SCALDER MIRTA During your visit today, we recorded the following information about you: Pulse Blood pressure Weight Height 73/minute 110/77 65 kg 1.57 m Carmen Obrien MA 06/22/2022 3:32 PM Signed AMBULATORY BLOOD PRESSURE MONITOR Performed automated office BP reading and results downloaded into [employer]. Average BP: 110/77 AOBP - Standardized BP Measurement BP #1: 113/79 Pulse #1: 73 beats/min BP #2 : 108/75 Pulse #2 : 71 beats/min BP #3 : 110/77 Pulse #3 : 76 beats/min Average BP: 110/77 Average Pulse: 73 beats/min BP cuff location: Left upper arm BP cuff size: regular adult Was office BP more than 180/100 (yes/no) If yes, provider informed: name of provider NO Action taken: NONE Applied ambulatory blood pressure monitor. Test reading done, demonstrated to patient Explained to patient the event form and also explained that on the event form they must document blood pressure medications taken morning, noon, and night. Explained to patient that they must keep the 24-hour monitor dry, to be still when the cuff inflates (to help reduce errors), and to resume usual activity once cuff deflates. Patient instructed to remove monitor and stop procedure if there is significant cuff inflation discomfort leading to pain or bruising. Patient instructed to follow up with ordering provider about results Explained to patient to return monitor by mail via [employer] no later than: 06/23/2022. Serial number: [id number] [employer] Tracking number [id number] Did the patient receive a blood pressure cuff? Yes Did the patient receive a blood pressure monitor? Yes Did the patient receive a belt? Yes Patient expressed understanding of all above. Patient signed financial release form and aware that they will be billed if the monitor is not returned by the specified date. All questions answered ARIANNA Hart MA 06/22/2022 3:29 PM Signed AMBULATORY BLOOD PRESSURE MONITOR Performed automated office BP reading and results downloaded into [employer]. Average BP: 110/77 AOBP - Standardized BP Measurement BP #1: 113/79 Pulse #1: 73 beats/min BP #2 : 108/75 Pulse #2 : 71 beats/min BP #3 : 110/77 Pulse #3 : 76 beats/min Average BP: 110/77 Average Pulse: 73 beats/min BP cuff location: Left upper arm BP cuff size: regular adult Was office BP more than 180/100 (yes/no) If yes, provider informed: name of provider NO Action taken: NONE Applied ambulatory blood pressure monitor. Test reading done, demonstrated to patient Explained to patient the event form and also explained that on the event form they must document blood pressure medications taken morning, noon, and night. Explained to patient that they must keep the 24-hour monitor dry, to be still when the cuff inflates (to help reduce errors), and to resume usual activity once cuff deflates. Patient instructed to remove monitor and stop procedure if there is significant cuff inflation discomfort leading to pain or bruising. Patient instructed to follow up with ordering provider about results Explained to patient to return monitor by mail via [employer] no later than: 06/23/2022. Serial number: [id number] [employer] Tracking number [id number] Did the patient receive a blood pressure cuff? Yes Did the patient receive a blood pressure monitor? Yes Did the patient receive a belt? Yes Patient expressed understanding of all above. Patient signed financial release form and aware that they will be billed if the monitor is not returned by the specified date. All questions answered Carmen Obrien MA Referring Provider: SELF [[id number]] Allergies As of Date: 06/22/2022 Noted Allergy Reaction AMLODIPINE 05/08/2019 7 - Swelling Comments: BLE swelling PENICILLINS 04/24/2002 Date Reviewed: 06/22/2022 Reviewed by: Yen Beth MA - Fully Assessed Reason for Visit: BP 24 Hour Monitor Evaluation [2573] Primary Visit Diagnosis:Hypotension, unspecified hypotension type [I95.9] Prescriptions as of 06/22/2022 - terbinafine HCl (LAMISIL) 250 mg tablet Take 250 mg by mouth once daily. - lisinopril (ZESTRIL, PRINIVIL) 10 mg tablet Take 1 tablet by mouth twice daily. - cloNIDine HCl (CATAPRES) 0.1 mg tablet Take 1 tablet by mouth every 8 hours as needed (take if systolic BP>170). - pantoprazole DR (PROTONIX) 40 mg tablet Take 40 mg by mouth once daily. - SYNTHROID 50 mcg tablet - conjugated estrogens (PREMARIN) vaginal cream - naltrexone capsule 4.5 mg (CPD) Take 1 capsule by mouth once daily. - tiZANidine HCl 4 mg capsule Take 4 mg by mouth twice daily as needed. - buPROPion HCL 200 mg 12 hr tablet Take 200 mg by mouth twice daily. - ALPRAZolam (XANAX) 0.5 mg tablet Take 0.5 mg by mouth three times daily as neede (more content not included)... Normal [facility] Office Visit (MIRTA ) REGLA PRAJAPATI ([id number]) 1970 F Date Time Provider Department 06/22/22 2:20 PM TING CAMILO During your visit today, we recorded the following information about you: Temperature Pulse Blood pressure Weight 97.8 degrees 73/minute 110/77 65.4 kg Height 1.575 m Ting Camilo MD 06/22/2022 3:21 PM Signed Chief complaint: follow up HTN HPI: Ms. Prajapati is a 51yo female here for follow up HTN in the setting of diffuse PVD and mild NANCY. Currently, her BP's have not been spiking but she complains of drops in BP and dizziness on standing during the night if she wakes up to use the bathroom. Also she notes dyspnea fatigue and rapid HR up to 120's with minimal exertion during the day. This latter just started in the last couple of months since we got the BP under control. She states her BP is not low when her HR goes up. PAST MEDICAL HISTORY Diagnosis Date Allergic rhinitis, cause unspecified Allergy, airborne subst Anxiety state Dyspareunia Essential hypertension Fibromyalgia Genital herpes, unspecified under control Genital herpes Irritable bowel syndrome Irritable bowel Other and unspecified ovarian cyst 5 y/a Ovarian cyst Peripheral vascular disease (HCC) extensive, S/p right carotid stent and right iliac artery stent Renal artery stenosis (HCC) right Varicella without mention of complication Chickenpox PAST SURGICAL HISTORY Procedure Laterality Date COLONOSCOPY FLX DX W/COLLJ SPEC WHEN PFRMD 04/07/02 Colonoscopy LAPS ABD PRTMANDOMENTUM DX W/WO SPEC BR/WA SPX 5 yrs ago Laparoscopy Current Outpatient Medications Medication Sig terbinafine HCl (LAMISIL) 250 mg tablet Take 250 mg by mouth once daily. lisinopril (ZESTRIL, PRINIVIL) 10 mg tablet Take 1 tablet by mouth twice daily. cloNIDine HCl (CATAPRES) 0.1 mg tablet Take 1 tablet by mouth every 8 hours as needed (take if systolic BP>170). pantoprazole DR (PROTONIX) 40 mg tablet Take 40 mg by mouth once daily. SYNTHROID 50 mcg tablet conjugated estrogens (PREMARIN) vaginal cream tiZANidine HCl 4 mg capsule Take 4 mg by mouth twice daily as needed. buPROPion HCL 200 mg 12 hr tablet Take 200 mg by mouth twice daily. ALPRAZolam (XANAX) 0.5 mg tablet Take 0.5 mg by mouth three times daily as needed. atorvastatin (LIPITOR) 40 mg tablet Take 1 tablet by mouth daily at bedtime. clopidogrel (PLAVIX) 75 mg tablet TAKE 1 TABLET BY MOUTH ONCE DAILY FOR 14 DAYS aspirin, enteric coated (ASPIRIN, ENTERIC COATED) 81 mg EC tablet Take 81 mg by mouth once daily. naltrexone capsule 4.5 mg (CPD) Take 1 capsule by mouth once daily. omeprazole (PRILOSEC) 20 mg capsule 40 mg once daily. ezetimibe (ZETIA) 10 mg tablet Take 1 tablet by mouth once daily. cholecalciferol (VITAMIN D) 1,000 unit tab tablet Take 1 capsule by mouth once daily. No current facility-administered medications for this visit. ALLERGIES Allergen Reactions Amlodipine Swelling BLE swelling Penicillins Social History Tobacco Use Smoking status: Former Packs/day: 0.50 Years: 15.00 Pack years: 7.50 Types: Cigarettes Quit date: 12/22/2018 Years since quittin.5 Smokeless tobacco: Never Substance Use Topics Alcohol use: Not Currently Alcohol/week: 1.7 standard drinks Drug use: No FAMILY HISTORY Problem Relation Age of Onset other (brain aneurism) Mother age 46 other (healthy) Father 53 yrs. other (healthy) Sister 26 yrs. Review of systems: General: Positive for fatigue; Negative for weight loss, night sweats, and fever Head/Neck: Negative for metallic or bitter taste Cardiac: Positive for palpitations, lightheadedness, dizziness, and chest pain or pressure; Negative for syncope Vascular: Negative for edema Pulmonary: Negative for dyspnea, and cough GastroIntestinal: Positive for nausea, loss of appetite, emesis, and constipation; Negative for diarrhea, and abdominal pain Genito-Urinary: Negative for pink or red urine, pain with urination, groin pain, flank pain, and decreased urine Hematology: Positive for easy bruising; Other: Positive for daytime somnolence; BP 110/77 (BP Site: Left Arm, BP Position: Sitting, BP Cuff Size: Regular Adult) Pulse 73 Temp 36.6 ?C (97.8 ?F) (Oral) Ht 157.5 cm (5' 2 ) Wt 65.4 kg (144 lb 1.6 oz) BMI 26.36 kg/m? BP - standardized method Pulse 1 BP #1: 113/79 Pulse #1: 73 beats/min 2 BP #2 : 108/75 Pulse #2 : 71 beats/min 3 BP #3 : 110/77 Pulse #3 : 76 beats/min Average Average BP: 110/77 Average Pulse: 73 beats/min Orthostatic vitals Supine Sitting Standing Standing BP : 104/72 Standing pulse : 69 BP cuff location BP cuff location: Left upper arm BP cuff size BP cuff size: regular adult Comments for BP values First BP (right) First BP (left) Exam: Constitutional: Mental status: alert and oriented x4. No acute dist (more content not included)... Normal [facility] ECG COMPLETEon 06-22-2022 ECG COMPLETE Ventricular Rate : 8 7 BPM Atrial Rate : 87 BPM P-R Interval : 150 ms QRS Duration : 80 ms Q-T Interval : 346 ms QTC Calculation(Bazett) : 416 ms Calculated P [place] : 27 degrees Calculated R [place] : 34 degrees Calculated T [place] : 43 degrees NORMAL SINUS RHYTHM NORMAL ECG Confirmed by MD RAULITO, PhD, SAHIL ([id number]) on 06/28/2022 2:12:17 PM NAME : REGLA PRAJAPATI PID : [id number] : 1970 Gender : Female Race : ORD : [id number] Procedure Date : Jun 22 2022 16:26:52 Edit Date : Jun 28 2022 14:12:17 Diagnosis: NORMAL SINUS RHYTHM NORMAL ECG Confirmed by MD RAULITO, PhD, SAHIL ([id number]) on 06/28/2022 2:12:17 PM Test Reason : Location : 314 : J14 J1-4 Overread By : MD RAULITO, PhD,SAHIL Edited By : MD RAULITO, PhD,SAHIL Referred By : TING CAMILO Acquired by : SCOTT WHITE [facility] URINALYSIS, REFLEX MICROSCOP ICon 06-22-2022 Bilirubin Ql (U) Negative Normal Negative [facility] Comment on above: Order Comment: Speci men Type: URINE SPECIMENOrdering Facility: [facility] Address: [address] [place] [address] Performed By: #### L [id number] ####[facility] LABCLIA [id number] [address] [place] Clarity (Unsp spec) Clear Normal Clear [facility] Comment on above: Order Comment: Speci men Type: URINE SPECIMENOrdering Facility: [facility] Address: [address] [place] [address] Performed By: #### L [id number] ####[facility] LABCLIA [id number] [place] [address] [place] Color (U) Colorless Normal Yellow [facility] Comment on above: Order Comment: Speci men Type: URINE SPECIMENOrdering Facility: [facility] Address: [address] [place] [address] Performed By: #### L [id number] ####[facility] LABCLIA [id number] [place] [address] [place] Glucose Test strip (U) [Mass/Vol] Negative Normal Trace, Negative [facility] Comment on above: Order Comment: Speci men Type: URINE SPECIMENOrdering Facility: [facility] Address: [address] Performed By: #### L [id number] ####[facility] LABCLIA [id number] [place] [address] [place] Hemoglobin Ql (U) Negative Normal Negative, Trace [facility] Comment on above: Order Comment: Speci men Type: URINE SPECIMENOrdering Facility: [facility] Address: [address] Performed By: #### L [id number] ####[facility] LABCLIA [id number] [place] [address] [place] Ketones Ql (U) Negative Normal Negative, Trace [facility] Comment on above: Order Comment: Speci men Type: URINE SPECIMENOrdering Facility: [facility] Address: [address] Performed By: #### L [id number] ####[facility] LABCLIA [id number] [place] [address] [place] Leukocyte esterase Test strip Ql (U) Negative Normal Negative, 25 Keith/uL [facility] Comment on above: Order Comment: Speci men Type: URINE SPECIMENOrdering Facility: [facility] Address: [address] [place], [place] [id number] Performed By: #### L [id number] ####[facility] LABCLIA [id number] [place] [address] [place] Nitrite Ql (U) Negative Normal Negative [facility] Comment on above: Order Comment: Speci men Type: URINE SPECIMENOrdering Facility: [facility] Address: [address] [place], [place] [address] Performed By: #### L [id number] ####[facility] LABCLIA [id number] [id number] [address] [place] pH (U) 5.5 [pH] Normal 5.0-8.0 [facility] Comment on above: Order Comment: Speci men Type: URINE SPECIMENOrdering Facility: [facility] Address: [address] [place] [address] Performed By: #### L [id number] ####[facility] LABIA [id number] [place] [address] [place] Protein (U) [Mass/Vol] Negative Normal Trace , Negative [facility] Comment on above: Order Comment: Speci men Type: URINE SPECIMENOrdering Facility: [facility] Address: [address] [place] [address] Performed By: #### L [id number] ####[facility] LABIA [id number] [place] [address] [place] Specific gravity (U) [Rel density] 1.005 Normal 1.005-1.030 [facility] Comment on above: Order Comment: Speci men Type: URINE SPECIMENOrdering Facility: [facility] Address: [address] [place] [address] Performed By: #### L [id number] ####[facility] LABIA [id number] [place] [address] [place] Urobilinogen Ql (U) Negative Normal Negative [facility] Comment on above: Order Comment: Speci men Type: URINE SPECIMENOrdering Facility: [facility] Address: [address] [place] [address] Performed By: #### L [id number] ####[facility] LABIA [id number] [place] [address] [place] Bilirubin Ql (U) Negative Negative [facility] Clarity (Unsp spec) Clear Clear [facility] Color (U) Colorless Yellow [facility] Glucose Test strip (U) [Mass/Vol] Negative Trace, Negative [facility] Hemoglobin Ql (U) Negative Negative, Trace [facility] Ketones Ql (U) Negative Negative, Trace [facility] Leukocyte esterase Test strip Ql (U) Negative Negative, 25 Keith/uL [facility] Nitrite Ql (U) Negative Negative [facility] pH (U) 5.5 [pH] 5.0 - 8.0 [facility] Protein (U) [Mass/Vol] Negative Trace , Negative [facility] Specific gravity (U) [Rel density] 1.005 1.005 - 1.030 [facility] Urobilinogen Ql (U) Negative Negative [facility] CATECHOLAMINES FRACTIONATED, URINE FREEon 06-01-2022 CATECHOLAMINES INTERPRETATION See Note Normal [facility] Comment on above: Order Comment: Speci men Type: TIMED URINE SPECIMENOrdering Facility: [facility] Address: [address] [id number] Result Comment: TEST INFORMATION: Catecholamines Fractionated, Urine Free Smaller increases in catecholamine concentrations (less than two times the upper limit) usually are the result of physiological stimuli, drugs, or improper specimen collection. Significant elevation of one or more catecholamines (three or more times the upper reference limit) is associated with an increased probability of a neuroendocrine tumor. Access complete set of age- and/or gender-specific reference intervals for this test in the [facility] ([facility]). This test was developed and its performance characteristics determined by [facility]. It has not been cleared or approved by the US Food and Drug Administration. This test was performed in a CLIA certified laboratory and is intended for clinical purposes. Performed By: #### U RCAT2 ####Sionic MobileIA [id number] [place] [address] CREATININE UR, PER 24H 931 mg/d Normal 700-1600 [facility] Comment on above: Order Comment: Speci men Type: TIMED URINE SPECIMENOrdering Facility: [facility] Address: [address] [place] [address] Result Comment: Perf ormed by [facility], [address] [place], [place] [id number] www.[facility], Alfonso Hernadez MD, PHD, Lab. Director Performed By: #### U RCAT2 ####CADiscount RampsIA [id number] [place] [address] CREATININE UR, PER VOLUME 49 mg/dL Normal [facility] Comment on above: Order Comment: Speci men Type: TIMED URINE SPECIMENOrdering Facility: [facility] Address: [address] [place] [address] Performed By: #### U RCAT2 ####[facility] LABORATORIESCLIA [id number] [place] [address] DOPAMINE, UR 24HR 118 ug/d Normal 71-485 [facility] Comment on above: Order Comment: Speci men Type: TIMED URINE SPECIMENOrdering Facility: [facility] Address: [address] [place] [address] Result Comment: REFE RENCE INTERVAL: Dopamine, Urine - ug/d Access complete set of age- and/or gender-specific reference intervals for this test in the [facility] ([facility]). Performed By: #### U RCAT2 ####GLOIRAUP LABORATORIESCLIA [id number] [place] [address] DOPAMINE, UR PER VOL 62 ug/L Normal [facility] Comment on above: Order Comment: Speci men Type: TIMED URINE SPECIMENOrdering Facility: [facility] Address: [address] [place] [address] Performed By: #### U RCAT2 ####GLORIAUP LABORATORIESCLIA [id number] [place] [address] DOPAMINE, UR RATIO TO MAINTENANCE REPAIRER 127 ug/g MAINTENANCE REPAIRER Normal 0-250 [facility] Comment on above: Order Comment: Speci men Type: TIMED URINE SPECIMENOrdering Facility: [facility] Address: [address] [address] Performed By: #### U RCAT2 ####ARUP LABORATORIESCLIA [id number] [place] [address] EPINEPHRINE, UR 24HR 4 ug/d Normal 1-14 [facility] Comment on above: Order Comment: Speci men Type: TIMED URINE SPECIMENOrdering Facility: [facility] Address: [address] [place] [address] Result Comment: REFE RENCE INTERVAL: Epinephrine, Urine - ug/d Access complete set of age- and/or gender-specific reference intervals for this test in the [facility] ([facility]). Performed By: #### U RCAT2 ####[facility] LABORATORIESCLIA [id number] [place] [address] EPINEPHRINE, UR PER VOL 2 ug/L Normal [facility] Comment on above: Order Comment: Speci men Type: TIMED URINE SPECIMENOrdering Facility: [facility] Address: [address] [place] [address] Performed By: #### U RCAT2 ####CAUP LABORATORIESCLIA [id number] [place] [address] EPINEPHRINE, UR RATIO TO MAINTENANCE REPAIRER 4 ug/g MAINTENANCE REPAIRER Normal 0-20 [facility] Comment on above: Order Comment: Speci men Type: TIMED URINE SPECIMENOrdering Facility: [facility] Address: [address] [place] [address] Performed By: #### U RCAT2 ####CAUP LABORATORIESCLIA [id number] [place] [address] HOURS COLLECTED 24 hr Normal [facility] Comment on above: Order Comment: Speci men Type: TIMED URINE SPECIMENOrdering Facility: [facility] Address: [address] [place] [address] Result Comment: Per 24h calculations are provided to aid interpretation for collections with a duration of 24 hours and an average daily urine volume. For specimens with notable deviations in collection time or volume, ratios of analytes to a corresponding urine creatinine concentration may assist in result interpretation. Performed By: #### U RCAT2 ####CAUP PinevioCLIA [id number] [place] [address] NOREPINEPHRINE, UR 24HR 32 ug/d Normal 14-120 [facility] Comment on above: Order Comment: Speci men Type: TIMED URINE SPECIMENOrdering Facility: [facility] Address: [address] [place] [address] Result Comment: REFE RENCE INTERVAL: Norepinephrine, Urine - ug/d Access complete set of age- and/or gender-specific reference intervals for this test in the [facility] ([facility]). Performed By: #### U RCAT2 ####ARUP LABORATORIESCLIA [id number] [place] [address] NOREPINEPHRINE, UR PER VOL 17 ug/L Normal [facility] Comment on above: Order Comment: Speci men Type: TIMED URINE SPECIMENOrdering Facility: [facility] Address: [address] [place] [address] Performed By: #### U RCAT2 ####ARUP LABORATORIESCLIA [id number] [place] [address] NOREPINEPHRINE, UR RATIO TO MAINTENANCE REPAIRER 35 ug/g MAINTENANCE REPAIRER Normal 0-45 [facility] Comment on above: Order Comment: Speci men Type: TIMED URINE SPECIMENOrdering Facility: [facility] Address: [address] [place] [address] Performed By: #### U RCAT2 ####ARUP LABORATORIESCLIA [id number] [place] [address] TOTAL VOLUME 1900 mL Normal [facility] Comment on above: Order Comment: Speci men Type: TIMED URINE SPECIMENOrdering Facility: [facility] Address: [address] [place] [address] Performed By: #### U RCAT2 ####ARUP LABORATORIESCLIA [id number] [place] [address] CREATININE 24 HR URon 2022 Creatinine (24H U) [Mass/Time] 0.910 g/24 hr Normal 0.800-1.800 [facility] Comment on above: Order Comment: Speci men Type: TIMED URINE SPECIMENOrdering Facility: [facility] Address: [address] [place] [address] Performed By: #### U CRD ####[facility] LABCLIA [id number] [facility] [id number] [place] [address] [place] [facility] LABORATORYCLIA [id number] [place] [address] [place] PERIOD (HRS) 24 hr Normal [facility] Comment on above: Order Comment: Speci men Type: TIMED URINE SPECIMENOrdering Facility: [facility] Address: [address] [place] [address] Performed By: #### U CRD ####[facility] LABCLIA [id number] [address] LABORATORYCLIA [id number] [place] [address] [facility] Performed By: #### U METAN ####[facility] LABCLIA [id number] [address] [place] [id number] [facility] LABORATORYCLIA [id number] [place] [address] [place] VOLUME (ML) 1900 mL Normal [facility] Comment on above: Order Comment: Speci men Type: TIMED URINE SPECIMENOrdering Facility: [facility] Address: [address] [place] [address] Performed By: #### U CRD ####[facility] LABCLIA [id number] [address] LABORATORYCLIA [id number] [place] [address] [place] Performed By: #### U METAN ####[facility] LABCLIA [id number] [address] LABORATORYCLIA [id number] [place] [address] [place] METANEPHRINES 24H URon 06-01 Metanephrines (24H U) [Mass/Time] 338 ug/24 hr Normal 140-785 [facility] Comment on above: Order Comment: Speci men Type: TIMED URINE SPECIMENOrdering Facility: [facility] Address: [address] [place] [address] Result Comment: Urin e Metanephrine test performed by Liquid Chromatography Tandem Mass Spectrometry (LC-MS/MS). Results obtained with different methods or kits cannot be used interchangeably. This test was developed and its performance characteristics determined by [facility] [place] ([facility]). It has not been cleared or approved by the FDA. -[facility] is regulated under CLIA as qualified to perform high-complexity testing. This test is used for clinical purposes. It should not be regarded as investigational or for research. Performed By: #### U METAN ####[facility] LABCLIA [id number] [address] LABORATORYCLIA [id number] [address] [place] NORMETANEPHRINES, UR 264 ug/24 hr Normal 88-444 [facility] Comment on above: Order Comment: Speci men Type: TIMED URINE SPECIMENOrdering Facility: [facility] Address: [address] [place] [address] Performed By: #### U METAN ####[facility] LABIA [id number] [address] LABORATORYIA [id number] [address] [place] Aldost SerPl-mCncon 05-18-19 23 Aldosterone [Mass/Vol] <3.0 Normal 0.0-<35.4 [facility] Comment on above: Order Comment: Speci men Type: BLOOD SPECIMENOrdering Facility: [facility] Address: [address] [place] [address] Result Comment: The reference interval for serum/plasma aldosterone is based on a normal sodium intake and upright position. High sodium intake may suppress aldosterone and low sodium intake may increase aldosterone. The supine reference interval is <23.7 ng/dL. A ratio of aldosterone in ng/dL to direct renin in pg/mL greater than or equal to 3.8 is a positive screening test result for primary aldosteronism, when aldosterone is greater than or equal to 15 ng/dL. Performed By: #### 1 763-2 ####[facility] LABCLIA [id number] [place] [address] [place]#### RENIND ####[facility] LABCLIA [id number] [place] [id number] [place] [facility] LABORATORYCLIA [id number] [facility] [address] [place] CATECHOLAMINES FRAon 023 CATECHOLAMINE INTERPRETATION PLASMA See Note Normal [facility] Comment on above: Order Comment: Speci men Type: BLOOD SPECIMENOrdering Facility: [facility] Address: [address] [address] Result Comment: INTE RPRETIVE INFORMATION: Catecholamines Panel, Plasma Small increases in catecholamines (less than 2 times the upper reference limit) usually are the result of physiological stimuli, drugs, or improper specimen collection. Significant elevation of one or more catecholamines (2 or more times the upper reference limit) is associated with an increased probability of a neuroendocrine tumor. Measurement of plasma or urine fractionated metanephrines provides better diagnostic sensitivity than measurement of catecholamines. Higher catecholamine concentrations are observed in specimens collected from upright or standing adults. Epinephrine may be increased by approximately 20 percent; norepinephrine up to 700 pg/mL; dopamine, unchanged. This test was developed and its performance characteristics determined by [facility]. It has not been cleared or approved by the US Food and Drug Administration. This test was performed in a CLIA certified laboratory and is intended for clinical purposes. Performed By: [facility] [address] [place] [address] Inside Sales Director: Alfonso Hernadez MD, PhD Performed By: #### P LCAT ####[facility] LABORATORIESCLIA [id number] [place] [address] DOPAMINE 30 pg/mL High 0-20 [facility] Comment on above: Order Comment: Speci men Type: BLOOD SPECIMENOrdering Facility: [facility] Address: [address] [address] Performed By: #### P LCAT ####[facility] LABORATORIESCLIA [id number] [place] [address] EPINEPHRINE (P) 22 pg/mL Normal 10-200 [facility] Comment on above: Order Comment: Speci men Type: BLOOD SPECIMENOrdering Facility: [facility] Address: [address] [address] Performed By: #### P LCAT ####[facility] LABORATORIESCLIA [id number] [place] [address] NOREPINEPHRINE 590 pg/mL High 80-520 [facility] Comment on above: Order Comment: Speci men Type: BLOOD SPECIMENOrdering Facility: [facility] Address: [address] [address] Performed By: #### P LCAT ####[facility] LABORATORIESCLIA [id number] [place] [address] DIRECT RENIN PLASMAon 2022 DIRECT RENIN 137.2 pg/mL High 3.6-81.6 [facility] Comment on above: Order Comment: Speci men Type: BLOOD SPECIMENOrdering Facility: [facility] Address: [address] [place] [address] Result Comment: A ra michaelle of aldosterone in ng/dL to direct renin in pg/mL greater than or equal to 3.8 is a positive screening test result for primary aldosteronism, when aldosterone is greater than or equal to 15 ng/dL. The reference interval for direct renin is based on an upright position. The supine reference intervals are: Age <41 years: 3.2-33.2 pg/mL Age >=41 years: 2.5-45.1 pg/mL Performed By: #### 1 763-2 ####[facility] LABCLIA [id number] [place] [address] [place]#### RENIND ####[facility] LABCLIA [id number] [address] STATES OF [facility] LABORATORYCLIA [id number] [address] [place] PATIENT UPRIGHT OR SUPINE Supine Normal [facility] Comment on above: Order Comment: Speci men Type: BLOOD SPECIMENOrdering Facility: [facility] Address: [address] Performed By: #### 1 763-2 ####[facility] LABCLIA [id number] [place] [address] [place]#### RENIND ####[facility] LABCLIA [id number] [address] STATES OF [facility] [place] LABORATORYCLIA [id number] [facility] [address] [place] METANEPHRINES, FREE PLASMAon 05-18-2022 METANEPHRINE, PLASMA 33 pg/mL Normal 12-67 [facility] Comment on above: Order Comment: Speci men Type: BLOOD SPECIMENOrdering Facility: [facility] Address: [address] [place] [address] Result Comment: Refe rence Ranges: Hypertensive adult > or = 18 yrs old: 12-72 pg/mL Normotensive adult > or = 18 yrs old: 12-67 pg/mL Normotensive children < 18 yrs old: 10-95 pg/mL Performed By: #### P METAN ####[facility] LABIA [id number] [address] [place] NORMETANEPHRINE, PLASMA 134 pg/mL High 18-101 [facility] Comment on above: Order Comment: Speci men Type: BLOOD SPECIMENOrdering Facility: [facility] Address: [address] [place] [address] Result Comment: Refe rence Ranges: Hypertensive adult > or = 18 yrs old: 24-145 pg/mL Normotensive adult > or = 18 yrs old: 18-101 pg/mL Normotensive children < 18 yrs old: 22-83 pg/mL Methyldopa may cause false elevation of normetanephrine levels in this assay. If patient is on methyldopa, interpret results with caution. Performed By: #### P METAN ####[facility] LABCLIA [id number] [place] [address] [place] Renal function 2000 panelon 05-18-2022 Albumin [Mass/Vol] 4.2 g/dL Normal 3.9-4.9 [facility] Comment on above: Order Comment: Speci men Type: BLOOD SPECIMENOrdering Facility: [facility] Address: [address] Performed By: #### 2 4362-6 ####[facility] LABCLIA [id number] [place] [address] [place] Anion gap [Moles/Vol] 12 mmol/L Normal 9-18 [facility] Comment on above: Order Comment: Speci men Type: BLOOD SPECIMENOrdering Facility: [facility] Address: [address] Performed By: #### 2 4362-6 ####[facility] LABCLIA [id number] [place] [address] [place] Calcium [Mass/Vol] 9.4 mg/dL Normal 8.5-10.2 [facility] Comment on above: Order Comment: Speci men Type: BLOOD SPECIMENOrdering Facility: [facility] Address: [address] Performed By: #### 2 4362-6 ####[facility] LABCLIA [id number] [place] [address] [place] Chloride [Moles/Vol] 103 mmol/L Normal 97-105 [facility] Comment on above: Order Comment: Speci men Type: BLOOD SPECIMENOrdering Facility: [facility] Address: [address] [id number] Performed By: #### 2 4362-6 ####[facility] LABCLIA [id number] [place] [address] [place] CO2 [Moles/Vol] 24 mmol/L Normal 22-30 [facility] Comment on above: Order Comment: Speci men Type: BLOOD SPECIMENOrdering Facility: [facility] Address: [address] Performed By: #### 2 4362-6 ####[facility] LABIA [id number] [place] [address] [place] Creatinine [Mass/Vol] 0.98 mg/dL High 0.58-0.96 [facility] Comment on above: Order Comment: Speci men Type: BLOOD SPECIMENOrdering Facility: [facility] Address: [address] Performed By: #### 2 4362-6 ####[facility] LABIA [id number] [place] [address] [place] ESTIMATED GLOMERULAR FILTRATION RATE 71 mL/min/1.73m??? Normal >=60 [facility] Comment on above: Order Comment: Eyali men Type: BLOOD SPECIMENOrdering Facility: [facility] Address: [address] [address] Result Comment: Liz mated Glomerular Filtration Rate (eGFR) is calculated using the 2020 CKD-EPI creatinine equation. This equation utilizes serum creatinine, sex, and age as parameters. The creatinine assay has traceable calibration to isotope dilution-mass spectrometry. Refer to KDIGO guidelines for clinical interpretation. In patients with unstable renal function, e.g. those with acute kidney injury, the eGFR may not accurately reflect actual GFR. Performed By: #### 2 4362-6 ####[facility] LABIA [id number] [place] [address] [place] Glucose [Mass/Vol] 106 mg/dL High 74-99 [facility] Comment on above: Order Comment: Speci men Type: BLOOD SPECIMENOrdering Facility: [facility] Address: [address] Result Comment: The [place] Diabetes Association (ADA) provides guidance for cutoff values for fasting glucose and random glucose. The ADA defines fasting as no caloric intake for at least 8 hours. Fasting plasma glucose results between 100 to 125 mg/dL indicate increased risk for diabetes (prediabetes). Fasting plasma glucose results greater than or equal to 126 mg/dL meet the criteria for diagnosis of diabetes. In the absence of unequivocal hyperglycemia, results should be confirmed by repeat testing. In a patient with classic symptoms of hyperglycemia or hyperglycemic crisis, random plasma glucose results greater than or equal to 200 mg/dL meet the criteria for diagnosis of diabetes. Reference: Standards of Medical Care in Diabetes 2016, [place] Diabetes Association. Diabetes Care. 2016.39(Suppl 1). Performed By: #### 2 4362-6 ####[facility] LABCLIA [id number] [place] [address] [place] Phosphate [Mass/Vol] 3.6 mg/dL Normal 2.7-4.8 [facility] Comment on above: Order Comment: Speci men Type: BLOOD SPECIMENOrdering Facility: [facility] Address: [address] [place] [address] Performed By: #### 2 4362-6 ####[facility] LABIA [id number] [place] [address] [place] Potassium [Moles/Vol] 3.8 mmol/L Normal 3.7-5.1 [facility] Comment on above: Order Comment: Eyali men Type: BLOOD SPECIMENOrdering Facility: [facility] Address: [address] [place] [address] Performed By: #### 2 4362-6 ####[facility] LABIA [id number] [place] [address] [place] Sodium [Moles/Vol] 139 mmol/L Normal 136-144 [facility] Comment on above: Order Comment: Speci men Type: BLOOD SPECIMENOrdering Facility: [facility] Address: [address] [place], [place] [address] Performed By: #### 2 4362-6 ####[facility] LABIA [id number] [place] [address] [place] Urea nitrogen [Mass/Vol] 15 mg/dL Normal 7-21 [facility] Comment on above: Order Comment: Speci men Type: BLOOD SPECIMENOrdering Facility: [facility] Address: [address] [address] Performed By: #### 2 4362-6 ####[facility] LABCLIA [id number] [place] [address] [place] URINALYSIS, REFLEX MICROSCOP ICon 05-18-2022 Bilirubin Ql (U) Negative Normal Negative [facility] Comment on above: Order Comment: Speci men Type: URINE SPECIMEN [facility]ing [facility] Address: [address] Performed By: #### L [id number] #### [facility] CLIA [id number] [address] [place] [address] [place] Clarity (Unsp spec) Clear Normal Clear [facility] Comment on above: Order Comment: Speci men Type: URINE SPECIMEN Ordering [facility]: [facility] Address: [address] [place], [place] [address] Performed By: #### L [id number] #### [facility] CLIA [id number] [address] [place] [address] Color (U) Light Yellow Normal Yellow [facility] Comment on above: Order Comment: Speci men Type: URINE SPECIMEN Ordering Facility: [facility] Address: [address] [place], [place] [address] Performed By: #### L [id number] #### [facility] CLIA [id number] [address] [place] [address] [place] Glucose Test strip (U) [Mass/Vol] Negative Normal Trace, Negative [facility] Comment on above: Order Comment: Speci men Type: URINE SPECIMEN [facility]ing [facility]: [facility] Address: [address] Performed By: #### L [id number] #### [facility] CLIA [id number] [address] [place] [address] [place] Hemoglobin Ql (U) Negative Normal Negative, Trace [facility] Comment on above: Order Comment: Speci men Type: URINE SPECIMEN [facility]ing [facility]: [facility] Address: [address] Performed By: #### L [id number] #### [facility] CLIA [id number] [address] [place] [address] [place] Ketones Ql (U) Negative Normal Trace, Negative [facility] Comment on above: Order Comment: Speci men Type: URINE SPECIMEN [facility]ing [facility]: [facility] Address: [address] [place] [address] Performed By: #### L [id number] #### [facility] CLIA [id number] [address] [place] [address] [place] Leukocyte esterase Test strip Ql (U) Negative Normal Negative, 25 Keith/mL [facility] Comment on above: Order Comment: Speci men Type: URINE SPECIMEN [facility]ing [facility]: [facility] Address: [address] Performed By: #### L [id number] #### [facility] CLIA [id number] [address] [place] [address] [place] Nitrite Ql (U) Negative Normal Negative [facility] Comment on above: Order Comment: Speci men Type: URINE SPECIMEN [facility] [facility] Address: [address] [place], [place] [id number] Performed By: #### L [id number] #### [facility] CLIA [id number] [address] [place] [address] [place] pH (U) 6.0 [pH] Normal 5.0-8.0 [facility] Comment on above: Order Comment: Speci men Type: URINE SPECIMEN Ordering Facility: [facility] Address: [address] Performed By: #### L [id number] #### [facility] CLIA [id number] [address] [place] [address] [place] Protein (U) [Mass/Vol] Negative Normal Trace , Negative [facility] Comment on above: Order Comment: Speci men Type: URINE SPECIMEN Ordering Facility: [facility] Address: [address] [place] [address] Performed By: #### L [id number] #### [facility] CLIA [id number] [address] [place] [address] [place] Specific gravity (U) [Rel density] 1.011 Normal 1.005-1.030 [facility] Comment on above: Order Comment: Speci men Type: URINE SPECIMEN Ordering Facility: [facility] Address: [address] [place] [address] Performed By: #### L [id number] #### [facility] CLIA [id number] [facility] [place] Urobilinogen Ql (U) Negative Normal Negative [facility] Comment on above: Order Comment: Speci men Type: URINE SPECIMEN Ordering Facility: [facility] Address: [address] [place] [address] Performed By: #### L [id number] #### [facility] CLIA [id number] [facility] [address] [place] [address] [place] Basophils Auto (Bld) [#/Vol] Ordered By: Terrell Mc on 05-11-2022 Basophils (Bld) [#/Vol] 0.0 10*3/uL 0.0-0.[address] [facility] Basophils/100 WBC Auto (Bld) Ordered By: Terrell Mc on 05-11-2022 Basophils/100 WBC (Bld) 0.5 % . [facility] Body fluid albumin measureme nt (mass/volume)Ordered By: Terrell Mc on 05-11-2022 Albumin (Body fld) [Mass/Vol] 3.8 g/dL 3.2-5.[address] [facility] Creatinine and Glomerular fi ltration rate.predicted panel (S/P/Bld)Ordered By: Terrell Mc on 05-11-2022 Creatinine [Mass/Vol] 1.11 mg/dL 0.44-1.03 [facility] Eosinophils Auto (Bld) [#/Vo l]Ordered By: Terrell Mc on 05-11-2022 Eosinophils (Bld) [#/Vol] 0.1 10*3/uL 0.0-0.[address] [facility] Eosinophils/100 WBC Auto (Bl d)Ordered By: Terrell Mc on 05-11-2022 Eosinophils/100 WBC (Bld) 0.7 % . [facility] Erythrocyte distribution wid th Auto (RBC) [Ratio]Ordered By: Terrell Mc on 05-11-2022 Erythrocyte distribution width (RBC) [Ratio] 13.5 % 11.9-15.[address] [facility] Estimated glomerular filtrat ion rate (GFR) non- AmericanOrdered By: Terrell Mc on 05-11-2022 GFR/1.73 sq M.predicted among non-blacks MDRD (S/P/Bld) [Vol rate/Area] 52 mL/Min [facility] Globulin Calc (S) [Mass/Vol] Ordered By: Terrell Mc on 05-11-2022 Globulin (S) [Mass/Vol] 2.5 g/dL [facility] Hematocrit Auto (Bld) [Volum e fraction]Ordered By: Terrell Mc on 05-11-2022 Hematocrit (Bld) [Volume fraction] 37.4 % 34.0-46.[address] [facility] Hemoglobin [Mass/volume] in BloodOrdered By: Terrell Mc on 05-11-2022 Hemoglobin (Bld) [Mass/Vol] 12.3 g/dL 11.8-15.[address] [facility] Leukocytes [#/volume] correc flo for nucleated erythrocytes in Blood by Automated counOrdered By: Terrell Mc on 05-11-2022 WBC corrected for nucl RBC Auto (Bld) [#/Vol] 7.7 10*3/uL 3.8-11.[address] [facility] Lymphocytes Auto (Bld) [#/Vo l]Ordered By: Terrell Mc on 05-11-2022 Lymphocytes (Bld) [#/Vol] 3.0 10*3/uL 1.00-4.[address] [facility] Lymphocytes/100 WBC Auto (Bl d)Ordered By: Terrell Mc on 05-11-2022 Lymphocytes/100 WBC (Bld) 39.2 % . [facility] MCH Auto (RBC) [Entitic mass ]Ordered By: Terrell Mc on 05-11-2022 MCH (RBC) [Entitic mass] 29.6 pg 24.7-34.[address] [facility] MCHC Auto (RBC) [Mass/Vol]Or dered By: Terrell Mc on 05-11-2022 MCHC (RBC) [Mass/Vol] 32.8 g/dL 32.0-35.0 [facility] MCV Auto (RBC) [Entitic vol] Ordered By: Terrell Mc on 05-11-2022 MCV (RBC) [Entitic vol] 90.3 fL 80-100 [facility] Monocyte distribution width [Entitic volume] in Blood by AutomatedOrdered By: Terrell Mc on 05-11-2022 Monocyte distribution width Auto (Bld) [Entitic vol] 17.43 % 0.00-20.[address] [facility] Monocytes Auto (Bld) [#/Vol] Ordered By: Terrell Mc on 05-11-2022 Monocytes (Bld) [#/Vol] 0.8 10*3/uL 0.0-0.[address] [facility] Monocytes/100 WBC Auto (Bld) Ordered By: Terrell Mc on 05-11-2022 Monocytes/100 WBC (Bld) 10.4 % . [facility] Neutrophils Auto (Bld) [#/Vo l]Ordered By: Terrell Mc on 05-11-2022 Neutrophils (Bld) [#/Vol] 3.8 10*3/uL 1.8-7.[address] [facility] Neutrophils/100 WBC Auto (Bl d)Ordered By: Terrell Mc on 05-11-2022 Neutrophils/100 WBC (Bld) 49.2 % . [facility] No Panel InformationOrdered By: Terrell Mc on 05-11-2022 Estimated GFR () > 60 mL/Min [facility] Comment on above: GFR estimated refere nce range: According to KDOQI guidelines, <60 ml/min/1.73m2 is sufficient to diagnose a patient with chronic kidney disease. Pharmacy Creatinine Clearance (Chem 54.[address] [facility] Nucleated erythrocytes [Pres ence] in Blood by Automated countOrdered By: Terrell Mc on 05-11-2022 Nucleated RBC Auto Ql (Bld) 0.1 /100{WBC} 0-0.[address] [facility] Platelet mean volume Auto (B ld) [Entitic vol]Ordered By: Terrell Mc on 05-11-2022 Platelet mean volume (Bld) [Entitic vol] 7.0 fL 6.3-10.[address] [facility] Platelets Auto (Bld) [#/Vol] Ordered By: Terrell Mc on 05-11-2022 Platelets (Bld) [#/Vol] 332 10*3/uL 150-[address] [facility] Protein [Mass/volume] in Ser um or PlasmaOrdered By: Terrell cM on 05-11-2022 Protein [Mass/Vol] 6.3 g/dL 6.1-7.9 [facility] RBC Auto (Bld) [#/Vol]Ordere d By: Terrell Mc on 05-11-2022 RBC (Bld) [#/Vol] 4.14 10*6/uL 3.60-5.00 [facility] Serum or plasma alanine mejía otransferase measurement without P-5'-P (enzymatic activiOrdered By: Terrell Mc on 05-11-2022 ALT No additional P-5'-P [Catalytic activity/Vol] 30 U/L 10-[address] [facility] Serum or plasma albumin/glob ulin mass ratioOrdered By: Terrell Mc on 05-11-2022 Albumin/Globulin [Mass ratio] 1.5 {ratio} [facility] Serum or plasma alkaline annabelle sphatase measurement (enzymatic activity/volume)Ordered By: Terrell Mc on 05-11-2022 ALP [Catalytic activity/Vol] 90 U/L 32-[address] [facility] Serum or plasma anion gap de terminationOrdered By: Terrell Mc on 05-11-2022 Anion gap [Moles/Vol] 12.6 mmol/L 6.0-15.0 [facility] Serum or plasma aspartate am inotransferase measurement (enzymatic activity/volume)Ordered By: Terrell Mc on 05-11-2022 AST [Catalytic activity/Vol] 27 U/L 10-[address] [facility] Serum or plasma calcium laureen urement (mass/volume)Ordered By: Terrell Mc on 05-11-2022 Calcium [Mass/Vol] 9.3 mg/dL 8.2-10.2 [facility] Serum or plasma chloride silverio surement (moles/volume)Ordered By: Terrell Mc on 05-11-2022 Chloride [Moles/Vol] 105 mmol/L 95-114 [facility] Serum or plasma glucose laureen urement (mass/volume)Ordered By: Terrell Mc on 05-11-2022 Glucose [Mass/Vol] 74 mg/dL 70-100 [facility] Comment on above: ADA recommended refe rence rangeRandom Glucose Reference Range is dependent on time and content of last meal. Glucose of more than 200 mg/dL in a nonstressed, ambulatory subject supports the diagnosis of Diabetes Mellitus. Serum or plasma potassium me asurement (moles/volume)Ordered By: Terrell Mc on 05-11-2022 Potassium [Moles/Vol] 3.5 mmol/L 3.5-5.1 [facility] Serum or plasma sodium measu rement (moles/volume)Ordered By: Terrell Mc on 05-11-2022 Sodium [Moles/Vol] 140 mmol/L 136-146 [facility] Serum or plasma total biliru bin measurement (mass/volume)Ordered By: Terrell Mc on 05-11-2022 Bilirubin [Mass/Vol] 0.4 mg/dL 0.3-1.2 [facility] Serum or plasma total carbon dioxide measurement (moles/volume)Ordered By: Terrell Mc on 05-11-2022 CO2 [Moles/Vol] 25.9 mmol/L 22.0-30.0 [facility] Serum or plasma urea nitroge n measurement (mass/volume)Ordered By: Terrell Mc on 05-11-2022 Urea nitrogen [Mass/Vol] 14 mg/dL 9-[address] [facility] Troponin I.cardiac [Mass/vol ume] in Serum or Plasma by High sensitivity methodOrdered By: Terrell Mc on 05-11-2022 Troponin I.cardiac High sensitivity method [Mass/Vol] 4 pg/mL 0-[address] [facility] WBC Auto (Bld) [#/Vol]Ordere d By: Terrell Mc on 05-11-2022 WBC (Bld) [#/Vol] 7.7 10*3/uL 3.8-11.6 [facility] CNOVon 05-04-2022 CNOV Office Visit (VASSAV ) REGLA PRAJAPATI ([id number]) 1970 F Date Time Provider Department 05/04/22 12:15 PM FERMIN BEGUM During your visit today, we recorded the following information about you: Pulse Blood pressure 84/minute 140/84 Fermin Begum MD 05/04/2022 12:21 PM Signed [facility] [place] DEPARTMENT OF VASCULAR SURGERY OUTPATIENT VISIT DATE May 04, 2022 OUTPATIENT VISIT TYPE ESTABLISHED SERVICE DATE: 05/04/2022 SERVICE TIME: 11:54 AM PRIMARY CARE PHYSICIAN: Renetta Ridley, BENEFITS REPRESENTATIVE, BENEFITS REPRESENTATIVE HISTORY OF PRESENT ILLNESS: Ms. 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 She continues to have weakness in both upper arms with folding laundry or other repetitive activities, and with raising her arms over her head. She has shortness of breath daily, not related to activity, feels like pressure/tightness on her chest making it hard to breathe Evaluation so far includes coronary angiography 03/28/19 with no significant disease, echo 03/19/19 with normal LVEF, diastolic function and no significant valvular abnormalities 03/04/2019 patient had procedure at [facility] in [place] for critical right common iliac artery stenosis of 95% and right CCA stenosis 85-90% at the arch. This lesion was stented as well. Notes indicate patient was sensitive to catheter manipulation and significant left ostial carotid artery stenosis was not addressed at that time. 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 It was also noted that patient had a low pain threshold and extreme anxiety and would require general anesthesia for any other procedures. RCIA stent placed for claudication, when she walked, climbed stairs, or bent over in a certain way she would develop discomfort in right hip and radiate to calves. Abated with resting after a minute or so. Symptoms progressed Her symtpoms are equal in b/l upper extremity with repetitive arm movement develops weakness and occassional arm tingling. However, she can also develop these during periods of anxiety, laughing, occassoinally associated with chest pain. No renovacular htn despite b/l renal arterial stenosis Cr 0.77 from 04/2020, 1.03 from today 04/07/21 Lisinopril 5.. PAST MEDICAL HISTORY Diagnosis Date Allergic rhinitis, cause unspecified Allergy, airborne subst Anxiety state Dyspareunia Essential hypertension Fibromyalgia Genital herpes, unspecified under control Genital herpes Irritable bowel syndrome Irritable bowel Other and unspecified ovarian cyst 5 y/a Ovarian cyst Peripheral vascular disease (HCC) extensive, S/p right carotid stent and right iliac artery stent Renal artery stenosis (HCC) right Varicella without mention of complication Chickenpox PAST SURGICAL HISTORY Procedure Laterality Date COLONOSCOPY FLX DX W/COLLJ SPEC WHEN PFRMD 04/07/02 Colonoscopy LAPS ABD PRTMANDOMENTUM DX W/WO SPEC BR/WA SPX 5 yrs ago Laparoscopy SOCIAL HISTORY Social History Tobacco Use Smoking status: Former Packs/day: 0.50 Years: 15.00 Pack years: 7.50 Types: Cigarettes Quit date: 12/22/2018 Years since quittin.3 Smokeless tobacco: Never Substance Use Topics Alcohol use: Not Currently Alcohol/week: 1.7 standard drinks Drug use: No MEDICATIONS: atorvastatin (LIPITOR) 40 mg tablet Take 1 tablet by mouth daily at bedtime. clopidogrel (PLAVIX) 75 mg tablet TAKE 1 TABLET BY MOUTH ONCE DAILY FOR 14 DAYS aspirin, enteric coated (ASPIRIN, ENTERIC COATED) 81 mg EC tablet Take 81 mg by mouth once daily. lisinopril (ZESTRIL, PRINIVIL) 10 mg tablet Take 1 tablet by mouth twice daily. pantoprazole DR (PROTONIX) 40 mg tablet Take 40 mg by mouth once daily. SYNTHROID 50 mcg tablet conjugated estrogens (PREMARIN) vaginal cream naltrexone capsule 4.5 mg (CPD) Take 1 capsule by mouth once daily. tiZANidine HCl 4 mg capsule Take 4 mg by mouth twice daily as needed. buPROPion HCL 200 mg 12 hr tablet Take 200 mg by mouth twice daily. ALPRAZolam (XANAX) 0.5 mg tablet Take 0.5 mg by mouth three times daily as needed. omeprazole (PRILOSEC) 20 mg capsule 40 mg once daily. ezetimibe (ZETIA) 10 mg tablet Take 1 tablet by mouth once daily. cholecalciferol (VITAMIN D) 1,000 unit tab tablet Take 1 capsule by mouth once daily. ALLERGIES: ALLERGIES Allergen Reactions Amlodipine Swelling BLE swelling Penicillins PHYSICAL EXAM: BP 140/84 Pulse 84 General: Alert and oriented Abdomen: Soft, non-tender, no rigidity. Extremities: thenar (more content not included)... Normal [facility] PVR ANK/HERNANDEZ/TOE [facility] on 05-03-2022 PVR ANK/HERNANDEZ/TOE [facility] Non-Invasive Vascular Laboratory [facility] Lower Extremity Arterial Physiology Study Bilateral/Complete Date of service/time: 05/03/2022 7:51:55 AM Name: MRS. REGLA PRAJAPATI Date of : 1970 Age: 51 years Gender: F Clinical Indication Right common iliac artery stent. TECHNIQUE -------- An arterial physiological examination was performed, including measurement of blood pressures using continuous wave Doppler and recording of plethysmographic with or without Doppler waveforms at the below-mentioned limb segments. FINDINGS -------- RIGHT SIDE AT REST Right Doppler Waveforms Dorsalis pedis: Multiphasic. Post tibial: Multiphasic. Right Pressures Brachial: 123 mmHg Ankle dorsalis pedis: 137 mmHg DALTON: 1.03 Ankle posterior tibial: 134 mmHg DALTON: 1.01 Right PVR Waveforms Ankle: Normal. Transmetatarsal: Normal. Digit: Normal. LEFT SIDE AT REST Left Doppler Waveforms Dorsalis pedis: Multiphasic. Post tibial: Multiphasic. Left Pressures Brachial: 133 mmHg Ankle dorsalis pedis: 151 mmHg DALTON: 1.14 Ankle posterior tibial: 149 mmHg DALTON: 1.12 Left PVR Waveforms Ankle: Normal. Transmetatarsal: Normal. Digit: Normal. IMPRESSION Compared to prior study of 04/07/2021, previous DALTON's: right 1.09 left 1.17. RIGHT SIDE Resting right ankle brachial index: 1.03 Normal ankle brachial index at rest in the right leg. Right ankle: Normal at rest. LEFT SIDE Resting left ankle brachial index: 1.14 Normal ankle brachial index at rest in the left leg. Left ankle: Normal at rest. Technologist: Prieto Malik RVT, [facility] Ordering physician: FERMIN BEGUM Interpreting physician: Joel Bojorquez MD Final CC [employer] : [id number] See Link below for Image Normal [facility] US ABD AORTA COMPLETE VAS LA Bon 05-03-2022 US ABD AORTA COMPLETE [facility] LAB Non-Invasive Vascular Laboratory [facility] Abdominal Aorta Bilateral/Complete Date of service/time: 05/03/2022 8:25:51 AM Name: MRS. REGLA PRAJAPATI Date of : 1970 Age: 51 years Gender: F Clinical Indication Right common iliac artery stent. TECHNIQUE -------- An aortic duplex ultrasound examination was performed, including grayscale imaging and color Doppler and spectral Doppler examination of abdominal aorta as well as the below mentioned arteries. FINDINGS -------- AORTA Proximal: PSV: 67 cm/s. EDV: 13 cm/s. 2.15 cm x 2.12 cm At renal: PSV: 83 cm/s. EDV: 16 cm/s. 1.66 cm x 1.68 cm Mid: PSV: 59 cm/s. EDV: 0 cm/s. 1.59 cm x 1.64 cm Distal: PSV: 60 cm/s. EDV: 0 cm/s. 1.39 cm x 1.42 cm Heterogeneous, calcified and shadowing plaque in the abdominal aorta throughout. RIGHT VESSELS Common iliac origin: PSV: 144 cm/s. EDV: 0 cm/s. Common iliac proximal: PSV: 168 cm/s. EDV: 0 cm/s. Common iliac mid: PSV: 165 cm/s. EDV: 0 cm/s. Common iliac distal: PSV: 180 cm/s. EDV: 18 cm/s. External iliac proximal: PSV: 149 cm/s. EDV: 0 cm/s. Internal iliac origin: PSV: 163 cm/s. EDV: 10 cm/s. LEFT VESSELS Common iliac origin: PSV: 172 cm/s. EDV: 15 cm/s. Common iliac proximal: PSV: 203 cm/s. EDV: 0 cm/s. Common iliac mid: PSV: 155 cm/s. EDV: 0 cm/s. Common iliac distal: PSV: 121 cm/s. EDV: 0 cm/s. External iliac proximal: PSV: 181 cm/s. EDV: 0 cm/s. Internal iliac origin: PSV: 176 cm/s. EDV: 0 cm/s. IMPRESSION Compared to prior study of 04/07/2021, no signficant change. AORTA No evidence of abdominal aortic aneurysm. Normal aortic diameter . Aorta plaque noted without evidence of hemodynamically significant stenosis throughout. RIGHT VESSELS Common iliac artery is patent . Stent noted. Internal iliac artery is patent at origin. External iliac artery is patent at proximal. LEFT VESSELS Common iliac artery is patent . Internal iliac artery is patent at origin. External iliac artery is patent at proximal. Technologist: Prieto Malik RVT, RDMS Ordering physician: FERMIN BEGUM Interpreting physician: Joel Bojorquez MD Final CC [employer] [facility] : [id number] sSISUID See Link below for Image Normal [facility] US CAROTID ARTERIES [facility] 05-03-2022 US CAROTID ARTERIES [facility] Non-Invasive Vascular Laboratory [facility] Carotid Duplex Bilateral/Complete Date of service/time: 05/03/2022 7:52:51 AM Name: MRS. REGLA PRAJAPATI Date of : 1970 Age: 51 years Gender: F Clinical Indication Right common carotid artery stent, aberrant right subclavian artery. TECHNIQUE -------- A carotid duplex ultrasound examination was performed, including grayscale imaging and color Doppler and spectral Doppler examination of the below mentioned arteries. FINDINGS -------- RIGHT SIDE Common carotid artery: Proximal: PSV: 353 cm/s. EDV: 116 cm/s. Mid: PSV: 87 cm/s. EDV: 35 cm/s. Distal: PSV: 77 cm/s. EDV: 37 cm/s. Mild heterogeneous plaque at distal. Internal carotid artery: Origin: PSV: 69 cm/s. EDV: 27 cm/s. Proximal: PSV: 124 cm/s. EDV: 57 cm/s. Mid: PSV: 76 cm/s. EDV: 40 cm/s. Distal: PSV: 61 cm/s. EDV: 32 cm/s. Moderate homogeneous plaque at origin. ICA/CCA Ratio: 1.6 External carotid artery: Origin: PSV: 118 cm/s. EDV: 43 cm/s. Subclavian artery: Proximal: PSV: 89 cm/s. EDV: 12 cm/s. Vertebral artery: Proximal: PSV: 117 cm/s. EDV: 34 cm/s. Mid: PSV: 63 cm/s. EDV: 25 cm/s. LEFT SIDE Common carotid artery: Proximal: PSV: 77 cm/s. EDV: 27 cm/s. Mid: PSV: 78 cm/s. EDV: 37 cm/s. Distal: PSV: 78 cm/s. EDV: 35 cm/s. Mild heterogeneous plaque from mid to distal. Internal carotid artery: Origin: PSV: 76 cm/s. EDV: 34 cm/s. Proximal: PSV: 133 cm/s. EDV: 49 cm/s. Mid: PSV: 86 cm/s. EDV: 44 cm/s. Distal: PSV: 107 cm/s. EDV: 53 cm/s. Moderate heterogeneous plaque at origin. ICA/CCA Ratio: 1.7 External carotid artery: Origin: PSV: 446 cm/s. EDV: 190 cm/s. Proximal: PSV: 128 cm/s. EDV: 31 cm/s. Moderate homogeneous plaque at origin. Subclavian artery: Proximal: PSV: 276 cm/s. EDV: 31 cm/s. Mild heterogeneous plaque at proximal. Vertebral artery: PSV: 73 cm/s. EDV: 21 cm/s. IMPRESSION Compared to prior study of 04/07/2021, unable to obtain a velocity shift at proximal right vertebral artery. RIGHT SIDE Common carotid artery: 50-99% stenosis. Stent noted at proximal vessel, stenosis noted within the stent. Internal carotid artery: 40-59% stenosis. Vertebral artery: Patent and antegrade flow noted. Abnormal signal suggests more proximal stenosis. Innominate artery: Not visualized. Subclavian artery: Aberrant right subclavian artery, origin not visualized. Dampened flow noted. LEFT SIDE Common carotid artery: Plaque visualized without evidence of hemodynamically significant stenosis. Internal carotid artery: 40-59% stenosis. External carotid artery: Elevated velocities and plaque noted. Vertebral artery: Patent and antegrade flow noted. Subclavian artery: 50-99% stenosis. Technologist: Prieto Malik RVT, RDMS Ordering physician: FERMIN BEGUM Interpreting physician: Joel Bojorquez MD Final [facility] [employer] [facility] : [id number] sSISUID See Link below for Image Normal [facility] RENAL ARTERY [facility] n 05-03-2022 US RENAL ARTERY [facility] Non-Invasive Vascular Laboratory [facility] Renal or Mesenteric Duplex Bilateral/Complete Date of service/time: 05/03/2022 8:41:07 AM Name: MRS. REGLA PRAJAPATI Date of : 1970 Age: 51 years Gender: F Clinical Indication Atherosclerosis-other specified arteries. TECHNIQUE -------- A visceral duplex ultrasound examination was performed, including grayscale imaging and color Doppler and spectral Doppler examination of the below mentioned arteries and veins. FINDINGS -------- Aorta at renals PSV: 69 cm/s. EDV: 15 cm/s. Right renal artery origin PSV: 220 cm/s. EDV: 59 cm/s. Right renal artery proximal PSV: 271 cm/s. EDV: 67 cm/s. Right renal artery mid PSV: 208 cm/s. EDV: 56 cm/s. Right renal artery distal PSV: 132 cm/s. EDV: 41 cm/s. Right renal artery to aortic ratio (RAR): 3.9 Right kidney: Size: 10.2 cm. Right parenchyma resistive index and acceleration time Upper pole RI: 0.63 AT: 24 msec. Mid pole RI: 0.66 AT: 36 msec. Lower pole RI: 0.66 AT: 40 msec. Right renal vein patent. Left renal artery origin PSV: 175 cm/s. EDV: 46 cm/s. Left renal artery proximal PSV: 183 cm/s. EDV: 44 cm/s. Left renal artery mid PSV: 123 cm/s. EDV: 41 cm/s. Left renal artery distal PSV: 86 cm/s. EDV: 24 cm/s. Left renal artery to aortic ratio (RAR): 2.7 Left kidney: Size: 10.0 cm. Left parenchyma resistive index and acceleration time Upper pole RI: 0.64 AT: 20 msec. Mid pole RI: 0.68 AT: 40 msec. Lower pole RI: 0.66 AT: 24 msec. Left renal vein patent. IMPRESSION Compared to prior study of 04/07/2021, unable to obtain elevated velocities in the left renal artery, previous 60-99% stenosis. RIGHT RENAL Right renal artery: 60-99% stenosis. LEFT RENAL Left renal artery: 0-59% stenosis. No evidence of hemodynamically significant stenosis. Technologist: Prieto Malik RVT, [facility] Ordering physician: FERMIN BEGUM Interpreting physician: Joel Bojorquez MD Final [facility] [employer] [facility] : [id number] sSISUID See Link below for Image Normal [facility] CNOVon 03-23-2022 CNOV Office Visit (MIRTA ) REGLA PRAJAPATI ([id number]) 1970 F Date Time Provider Department 03/23/22 2:20 PM TING CAMILO During your visit today, we recorded the following information about you: Temperature Pulse Blood pressure Weight 97.9 degrees 87/minute 124/89 68 kg Height 1.575 m Ting Camilo MD 03/23/2022 2:34 PM Signed Chief complaint: follow up NANCY HPI: Ms. Prajapati is a 51yo female here for follow up bilateral NANCY in the setting of diffuse premature vascular disease. When last seen 6 months ago, her BP was stable on low dose lisinopril. She had passed out the month before seeing her, but had been asymptomatic after that. However, she had 3 months of abdominal pain, nausea and emesis, has improved but still with get bloating and pain, rarely with throw up. 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 Her lisinopril was increased to 10mg a day last week without much benefit. She also has episodes of dizziness. PAST MEDICAL HISTORY Diagnosis Date Allergic rhinitis, cause unspecified Allergy, airborne subst Anxiety state Dyspareunia Essential hypertension Fibromyalgia Genital herpes, unspecified under control Genital herpes Irritable bowel syndrome Irritable bowel Other and unspecified ovarian cyst 5 y/a Ovarian cyst Peripheral vascular disease (HCC) extensive, S/p right carotid stent and right iliac artery stent Renal artery stenosis (HCC) right Varicella without mention of complication Chickenpox PAST SURGICAL HISTORY Procedure Laterality Date COLONOSCOPY FLX DX W/COLLJ SPEC WHEN PFRMD 04/07/02 Colonoscopy LAPS ABD PRTMANDOMENTUM DX W/WO SPEC BR/WA SPX 5 yrs ago Laparoscopy Current Outpatient Medications Medication Sig lisinopril (ZESTRIL, PRINIVIL) 5 mg tablet Take 2 tablets by mouth once daily. pantoprazole DR (PROTONIX) 40 mg tablet Take 40 mg by mouth once daily. SYNTHROID 50 mcg tablet conjugated estrogens (PREMARIN) vaginal cream naltrexone capsule 4.5 mg (CPD) Take 1 capsule by mouth once daily. tiZANidine HCl 4 mg capsule Take 4 mg by mouth twice daily as needed. buPROPion HCL 200 mg 12 hr tablet Take 200 mg by mouth twice daily. ALPRAZolam (XANAX) 0.5 mg tablet Take 0.5 mg by mouth three times daily as needed. omeprazole (PRILOSEC) 20 mg capsule 40 mg once daily. ezetimibe (ZETIA) 10 mg tablet Take 1 tablet by mouth once daily. atorvastatin (LIPITOR) 40 mg tablet Take 1 tablet by mouth daily at bedtime. clopidogrel (PLAVIX) 75 mg tablet TAKE 1 TABLET BY MOUTH ONCE DAILY FOR 14 DAYS aspirin, enteric coated (ASPIRIN, ENTERIC COATED) 81 mg EC tablet Take 81 mg by mouth once daily. cholecalciferol (VITAMIN D) 1,000 unit tab tablet Take 1 capsule by mouth once daily. No current facility-administered medications for this visit. ALLERGIES Allergen Reactions Amlodipine Swelling BLE swelling Penicillins Social History Tobacco Use Smoking status: Former Packs/day: 0.50 Years: 15.00 Pack years: 7.50 Types: Cigarettes Quit date: 12/22/2018 Years since quittin.2 Smokeless tobacco: Never Substance Use Topics Alcohol use: Not Currently Alcohol/week: 1.7 standard drinks Drug use: No FAMILY HISTORY Problem Relation Age of Onset other (brain aneurism) Mother age 46 other (healthy) Father 53 yrs. other (healthy) Sister 26 yrs. Review of systems: General: Positive for weight loss, and fatigue; Negative for night sweats, and fever Head/Neck: Negative for metallic or bitter taste Cardiac: Positive for palpitations, orthopnea, lightheadedness, dizziness, chest pain or pressure, and PND; Negative for syncope Vascular: Positive for edema; Pulmonary: Negative for dyspnea, and cough GastroIntestinal: Negative for nausea, loss of appetite, emesis, diarrhea, constipation, and abdominal pain Genito-Urinary: Negative for pink or red urine, pain with urination, groin pain, flank pain, and decreased urine Hematology: Positive for easy bruising; Other: Positive for daytime somnolence; BP 124/89 (BP Site: Left Arm, BP Position: Sitting, BP Cuff Size: Regular Adult) Pulse 87 Temp 36.6 ?C (97.9 ?F) (Oral) Ht 157.5 cm (5' 2 ) Wt 68 kg (150 lb) BMI 27.44 kg/m? BP - standardized method Pulse 1 BP #1: 127/92 Pulse #1: 93 beats/min 2 BP #2 : 126/88 Pulse #2 : 83 beats/min 3 BP #3 : 118/86 Pulse #3 : 86 beats/min Average Average BP: 124/89 Average Pulse: 87 beats/min Orthostatic vitals Supine Sitting Standing Standing BP : 118/83 Standing pulse : 92 BP cuff location BP cuff location: Left upper arm BP cuff size BP cuff size: regular adult Comments for BP values First BP (right) First BP (left) Exam: Constitutional: Men (more content not included)... Normal [facility] CT ABD/PELV W CONon 03-23-20 CT ABD/PELV W CON EXAMINATION: CT ABD/PELV W CON HISTORY: Abdominal pain , bloating, weight loss, vomiting COMPARISON: No relevant comparison available. TECHNIQUE: Axial, Coronal, and Sagittal images were obtained without and/or with IV contrast as indicated by examination type. Dose reduction techniques were achieved by using automated exposure control and/or adjustment of mA and/or kV according to patient size and/or use of iterative reconstruction technique. FINDINGS: LUNG BASES: No visible pulmonary or pleural disease. LIVER: Several tiny hypodensities within liver favoring cysts. Small area of fatty infiltration within anterior right hepatic lobe adjacent to falciform ligament. BILIARY: No dilatation or calcification. PANCREAS: No lesion, fluid collection, or abnormal duct dilatation. SPLEEN: No enlargement or focal lesion. ADRENALS: No mass or enlargement. KIDNEYS: 1.1 cm round dense, but nonenhancing lesion within left kidney, likely a complex/hemorrhagic cyst. No appreciable mass or calcifications. BOWEL/MESENTERY: No visible mass, obstruction, or bowel wall thickening. AORTA/VASCULAR: Marked atherosclerotic disease. Endovascular stenting of right common iliac artery. RETROPERITONEUM: No mass or adenopathy. LYMPH NODES: No adenopathy. URINARY BLADDER: No visible focal wall thickening, lesion, or calculus. PELVIC ORGANS: Hysterectomy. ABDOMINAL WALL: No mass or hernia. BONES: No bony lesion or fracture. OTHER: Negative. IMPRESSION: 1. No suspicious findings to account for patient's symptoms. 2. Complex left renal cysts of doubtful clinical significance. 3. Marked atherosclerotic disease. Electronically authenticated by: FIOR TORRES Date: 2022-03-23 06:43 Normal [facility] AMYLASEon 03-22-2022 Amylase [Catalytic activity/Vol] 59 U/L Normal 25-115 [facility] Comment on above: Performed By: #### L IPA, CMP, AARON, TSH, LIPID, FT3 #### [facility] [address] [address] [address] Judah Peñaloza CBC AUTO DIFFon 03-22-2022 BASO # 0.0 103/ul Normal 0.0-0.1 [facility] Comment on above: Performed By: #### C MP, AARON, LIPA #### [facility] [address] [place] [address] Dr. Judah Peñaloza Basophils/100 WBC (Bld) 0.4 % Normal 0.2-2.0 [facility] Comment on above: Performed By: #### C MP AARON, LIPA #### [facility] [address] [place] [address] Dr. Judah Peñaloza EO # 0.1 103/ul Normal 0.0-0.7 [facility] Comment on above: Performed By: #### C MP AARON, LIPA #### [facility] [address] [place] [address] Dr. Judah Peñaloza Eosinophils/100 WBC (Bld) 0.7 % Critically low 0.9-7.0 [facility] Comment on above: Performed By: #### C AARON ZHU, LIPA #### [facility] [address] [place] [address] Dr. Judah Peñaloza Erythrocyte distribution width (RBC) [Ratio] 13.1 % Normal 11.0-15.0 [facility] Comment on above: Performed By: #### C AARON ZHU LIPA #### [facility] [address] [place] [address] Dr. Judah Peñaloza Hematocrit (Bld) [Volume fraction] 38.1 % Normal 36.0-48.0 [facility] Comment on above: Performed By: #### C AARON ZHU LIPA #### [facility] [address] [place] [address] Dr. Judah Peñaloza Hemoglobin (Bld) [Mass/Vol] 12.5 g/dL Normal 12.0-16.0 [facility] Comment on above: Performed By: #### C AARON ZHU, LIPA #### [facility] [address] [place] [address] Dr. Judah Peñaloza IG # 0.01 10e3/ul Normal 0.00-0.03 [facility] Comment on above: Performed By: #### C AARON ZHU, LIPA #### [facility] [address] [place] [address] Dr. Judah Peñaloza IG % 0.1 % Normal 0.0-0.5 [facility] Comment on above: Performed By: #### C AARON ZHU LIPA #### [facility] [address] [place] [address] Dr. Judah Peñaloza LYMPH # 2.6 103/ul Normal 1.2-3.8 [facility] Comment on above: Performed By: #### C AARON ZHU LIPA #### [facility] [address] [place] [address] Dr. Judah Peñaloza Lymphocytes/100 WBC (Bld) 38.6 % Normal 20.5-60.0 [facility] Comment on above: Performed By: #### C AARON ZHU LIPA #### [facility] [address] [place] [address] Dr. Judah Peñaloza MANUAL DIFF REQ NO Normal [facility] Comment on above: Performed By: #### C AARON ZHU LIPA #### [facility] [address] [place] [address] Dr. Judah Peñaloza MCH (RBC) [Entitic mass] 29.5 pg Normal 26.7-34.0 [facility] Comment on above: Performed By: #### C AARON ZHU LIPA #### [facility] [address] [place] [address] Dr. Judah Peñaloza MCHC (RBC) [Mass/Vol] 32.8 g/dL Normal 29.9-35.2 [facility] Comment on above: Performed By: #### C AARON ZHU LIPA #### [facility] [address] [place] [address] Dr. Judah Peñaloza MCV (RBC) [Entitic vol] 89.9 fL Normal 81.0-99.0 [facility] Comment on above: Performed By: #### C AARON ZHU LIPA #### [facility] [address] [place] [address] Dr. Judah Peñaloza MONO # 0.5 103/ul Normal 0.3-0.8 [facility] Comment on above: Performed By: #### C MP, AARON, LIPA #### [facility] [address] [address] [address] Judah Peñaloza Monocytes/100 WBC (Bld) 6.8 % Normal 1.7-12.0 [facility] Comment on above: Performed By: #### C MP, AARON, LIPA #### [facility] [address] [place] [address] Dr. Judah Peñaloza NEUT # 3.6 103/ul Normal 1.4-6.5 [facility] Comment on above: Performed By: #### C MP, AARON, LIPA #### [facility] [address] [place] [address] Dr. Judah Peñaloza Neutrophils/100 WBC (Bld) 53.4 % Normal 43.0-75.0 [facility] Comment on above: Performed By: #### C AUDRA AARON, LIPA #### [facility] [address] [place] [address] Dr. Judah Peñaloza Platelet mean volume (Bld) [Entitic vol] 8.8 fL Critically low 9.5-13.5 [facility] Comment on above: Performed By: #### C AUDRA AARON, LIPA #### [facility] [address] [place] [address] Dr. Judah Peñaloza PLT 281 103/ul Normal 150-450 [facility] Comment on above: Performed By: #### C AUDRA AARON, LIPA #### [facility] [address] [place] [address] Dr. Judah Peñaloza RBC 4.24 106/ul Normal 4.20-5.40 [facility] Comment on above: Performed By: #### C MP AARON, LIPA #### [facility] [address] [place] [address] Dr. Judah Peñaloza WBC 6.8 103/ul Normal 4.0-11.0 [facility] Comment on above: Performed By: #### C MP, AARON, LIPA #### [facility] [address] [place] [address] Dr. Judah Peñaloza FREE T3on 03-22-2022 FREE T3 2.66 pg/mlL Normal 2.18-3.98 [facility] Comment on above: Performed By: #### C MP, AARON, LIPA #### [facility] [address] [place] [address] Dr. Judah Peñaloza FREE T4on 03-22-2022 Free T4 [Mass/Vol] 1.02 ng/dL Normal 0.76-1.46 [facility] Comment on above: Performed By: #### C BC #### [facility] [address] [place] [address] Dr. Judah Peñaloza LIPASEon 03-22-2022 Lipase [Catalytic activity/Vol] 102.0 U/L Normal 73.0-393.0 [facility] Comment on above: Performed By: #### L IPA, CMP, AARON, TSH, LIPID, FT3 #### [facility] [address] [place] [address] Dr. Judah Peñaloza LIPID PROFILEon 03-22-2022 CHOL-HDL RATIO NORM SEE BELOW Normal [facility] Comment on above: Result Comment: 3.3 - 4.4 LOW RISK 4.4 - 7.1 AVERAGE RISK 7.1 - 11.0 MODERATE RISK >11.0 HIGH RISK Performed By: #### C MP, AARON, LIPA #### [facility] [address] [place] [address] Dr. Judah Peñaloza Cholesterol [Mass/Vol] 146 mg/dL Normal <=200 [facility] Comment on above: Performed By: #### C MP, AARON, LIPA #### [facility] [address] [place] [address] Dr. Judah Peñaloza Cholesterol in HDL [Mass/Vol] 49 mg/dL Normal 40-60 [facility] Comment on above: Performed By: #### C MP, AARON, LIPA #### [facility] [address] [place] [address] Dr. Judah Peñaloza Cholesterol in LDL [Mass/Vol] 70.4 mg/dL Normal [facility] Comment on above: Performed By: #### C MP, AARON, LIPA #### [facility] [address] [place] [address] Dr. Judah Peñaloza Cholesterol.total/Meg sterol in HDL [Mass ratio] 3.0 {ratio} Normal [facility] Comment on above: Performed By: #### C AARNO ZHU, LIPA #### [facility] [address] [place] [address] Dr. Judah Peñaloza HDL NORMAL > or = 60 mg/dl - LO W CARDIOVASCULAR RISK <40 mg/dl - HIGH CARDIOVASCULAR RISK Normal [facility] Comment on above: Performed By: #### C AUDRA AARON, LIPA #### [facility] [address] [place] [address] Dr. Judah Peñaloza LDL CALC NORMAL SEE BELOW Normal [facility] Comment on above: Result Comment: <100 mg/dl OPTIMAL 100 - 129 mg/dl NEAR OR ABOVE OPTIMAL 130 - 159 mg/dl BORDERLINE HIGH 160 - 189 mg/dl HIGH >190 mg/dl VERY HIGH Performed By: #### C AUDRA AARON, LIPA #### [facility] [address] [place] [address] Dr. Judah Peñaloza Triglyceride [Mass/Vol] 133 mg/dL Normal <=150 [facility] Comment on above: Performed By: #### C AUDRA AARON, LIPA #### [facility] [address] [place] [address] Dr. Judah Peñaloza VLDL CALC 26.6 mg/dL Normal [facility] Comment on above: Performed By: #### C MP, AARON, LIPA #### [facility] [address] [place] [address] Dr. Judah Peñaloza PROF 14(COMP METB)on 022 Albumin [Mass/Vol] 3.7 g/dL Normal 3.4-5.0 [facility] Comment on above: Performed By: #### L IPA, CMP, AARON, TSH, LIPID, FT3 #### [facility] [address] [place] [address] Dr. Judah Peñaloza Albumin/Globulin [Mass ratio] 1.1 {ratio} Normal [facility] Comment on above: Performed By: #### L IPA, CMP, AARON, TSH, LIPID, FT3 #### [facility] [address] [address] [address] Judah Peñaloza ALP [Catalytic activity/Vol] 122 U/L Critically high 46-116 [facility] Comment on above: Performed By: #### L IPA, CMP, AARON, TSH, LIPID, FT3 #### [facility] [address] [address] [address] Judah Peñaloza ALT [Catalytic activity/Vol] 34 U/L Normal 14-59 [facility] Comment on above: Performed By: #### L IPA, CMP, AARON, TSH, LIPID, FT3 #### [facility] [address] [address] [address] Judah Peñaloza Anion gap [Moles/Vol] 8.7 mmol/L Normal [facility] Comment on above: Performed By: #### L IPA, CMP, AARON, TSH, LIPID, FT3 #### [facility] [address] [place] [address] Dr. Judah Peñaloza AST [Catalytic activity/Vol] 20 U/L Normal 15-37 [facility] Comment on above: Performed By: #### L IPA, CMP, AARON, TSH, LIPID, FT3 #### [facility] [address] [address] [address] Judah Peñaloza Bilirubin [Mass/Vol] 0.4 mg/dL Normal 0.2-1.0 [facility] Comment on above: Performed By: #### L IPA, CMP, AARON, TSH, LIPID, FT3 #### [facility] [address] [place] [address] Dr. Judah Peñaloza Calcium [Mass/Vol] 9.2 mg/dL Normal 8.5-10.1 [facility] Comment on above: Performed By: #### L IPA, CMP, AARON, TSH, LIPID, FT3 #### [facility] [address] [place] [address] Dr. Judah Peñaloza Chloride [Moles/Vol] 103 mmol/L Normal 98-107 [facility] Comment on above: Performed By: #### L IPA, CMP, AARON, TSH, LIPID, FT3 #### [facility] [address] [address] [address] Judah Peñaloza CO2 [Moles/Vol] 32.1 mmol/L Critically high 21.0-32.0 [facility] Comment on above: Performed By: #### L IPA, CMP, AARON, TSH, LIPID, FT3 #### [facility] [address] [place] [address] Dr. Judah Peñaloza Creatinine [Mass/Vol] 0.94 mg/dL Normal 0.55-1.02 [facility] Comment on above: Performed By: #### L IPA, CMP, AARON, TSH, LIPID, FT3 #### [facility] [address] [place] [address] Dr. Judah Peñaloza EGFR-AF [place] >60 Normal >=60 [facility] Comment on above: Performed By: #### L IPA, CMP, AARON, TSH, LIPID, FT3 #### [facility] [address] [place] [address] Dr. Judah Peñaloza EGFR-NON AF [place] >60 Normal >=60 [facility] Comment on above: Performed By: #### L IPA, CMP, AARON, TSH, LIPID, FT3 #### [facility] [address] [place] [address] Dr. Judah Peñaloza Globulin (S) [Mass/Vol] 3.5 g/dL Normal [facility] Comment on above: Performed By: #### L IPA, CMP, AARON, TSH, LIPID, FT3 #### [facility] [address] [place] [address] Dr. Judah Peñaloza Glucose [Mass/Vol] 83 mg/dL Normal 74-106 [facility] Comment on above: Performed By: #### L IPA, CMP, AARON, TSH, LIPID, FT3 #### [facility] [address] [place] [address] Dr. Judah Peñaloza Potassium [Moles/Vol] 3.8 mmol/L Normal 3.5-5.1 [facility] Comment on above: Performed By: #### L IPA, CMP, AARON, TSH, LIPID, FT3 #### [facility] [address] [place] [address] Dr. Judah Peñaloza Protein [Mass/Vol] 7.2 g/dL Normal 6.4-8.2 [facility] Comment on above: Performed By: #### L IPA, CMP, AARON, TSH, LIPID, FT3 #### [facility] [address] [address] [address] Judah Peñaloza Sodium [Moles/Vol] 140 mmol/L Normal 136-145 [facility] Comment on above: Performed By: #### L IPA, CMP, AARON, TSH, LIPID, FT3 #### [facility] [address] [address] [address] Judah Peñaloza Urea nitrogen [Mass/Vol] 11.0 mg/dL Normal 7.0-18.0 [facility] Comment on above: Performed By: #### L IPA, CMP, AARON, TSH, LIPID, FT3 #### [facility] [address] [place] [address] Dr. Judah Peñaloza Urea nitrogen/Creatinine [Mass ratio] 11.7 mg/mg Normal [facility] Comment on above: Performed By: #### L IPA, CMP, AARON, TSH, LIPID, FT3 #### [facility] [address] [place] [address] Dr. Judah Peñaloza TSHon 03-22-2022 TSH 0.603 uIU/mL Normal 0.358-3.740 [facility] Comment on above: Performed By: #### C MP, AARON, LIPA #### [facility] [address] [place] [address] Dr. Judah Peñaloza UA RANDOM W/MICROSCOPICon BACTERIA TRACE Abnormal NONE SEEN [facility] Comment on above: Performed By: #### U AMIC #### [facility] [address] [place] [address] Dr. Judah Peñaloza Bilirubin Ql (U) Negative Normal NEGATIVE [facility] Comment on above: Performed By: #### U AMIC #### [facility] [address] [place] [address] Dr. Judah Peñaloza CAST SEEN Abnormal NONE SEEN [facility] Comment on above: Performed By: #### U AMIC #### [facility] [address] [address] [address] Judah Peñaloza Clarity (U) CLEAR Normal CLEAR [facility] Comment on above: Performed By: #### U AMIC #### [facility] [address] [address] [address] Judah Peñaloza Color (U) YELLOW Normal YELLOW [facility] Comment on above: Performed By: #### U AMIC #### [facility] [address] [address] [address] Judah Peñaloza Crystals LM Nom (Urine sed) NONE SEEN Normal NONE SEEN [facility] Comment on above: Performed By: #### U AMIC #### [facility] [address] [place] [address] Dr. Judah Peñaloza Epithelial cells LM Ql (Urine sed) FEW Abnormal NONE SEEN /RARE [facility] Comment on above: Performed By: #### U AMIC #### [facility] [address] [address] [address] Judah Peñaloza Glucose Ql (U) Negative Normal NEGATIVE [facility] Comment on above: Performed By: #### U AMIC #### [facility] [address] [place] [address] Dr. Judah Peñaloza Hemoglobin Ql (U) Negative Normal NEGATIVE [facility] Comment on above: Performed By: #### U AMIC #### [facility] [address] [address] [address] Judah Peñaloza HYALINE CAST RARE Normal [facility] Comment on above: Performed By: #### U AMIC #### [facility] [address] [address] [address] Judah Peñaloza Ketones Ql (U) Negative Normal NEGATIVE [facility] Comment on above: Performed By: #### U AMIC #### [facility] [address] [place] [address] Dr. Judah Peñaloza LEUKOCYTES Negative Normal NEGATIVE [facility] Comment on above: Performed By: #### U AMIC #### [facility] [address] [place] [address] Dr. Judah Peñaloza MUCOUS NONE SEEN Normal NONE SEEN [facility] Comment on above: Performed By: #### U AMIC #### [facility] [address] [place] [address] Dr. Judah Peñaloza Nitrite Ql (U) Negative Normal NEGATIVE [facility] Comment on above: Performed By: #### U AMIC #### [facility] [address] [place] [address] Dr. Judah Peñaloza pH (U) 7.0 [pH] Normal 5-9 [facility] [facility] Comment on above: Performed By: #### U AMIC #### [facility] [address] [place] [address] Dr. Judah Peñaloza RBC 0-2 Normal 0-2 [facility] Comment on above: Performed By: #### U AMIC #### [facility] [address] [place] [address] Dr. Judah Peñaloza SPEC GRAVITY 1.020 Normal 1.005-<=1.0 25 [facility] Comment on above: Performed By: #### U AMIC #### [facility] [address] [place] [address] Dr. Judah Peñaloza UA PROTEIN Negative Normal NEGATIVE/ TRACE [facility] Comment on above: Performed By: #### U AMIC #### [facility] [address] [place] [address] Dr. Judah Peñaloza Urobilinogen Qn (U) 0.2 {Gonzales'U}/dL Normal 0.2 - 1. 0 [facility] Comment on above: Performed By: #### U AMIC #### [facility] [address] [place] [address] Dr. Judah Peñaloza WBC 0-2 Abnormal NONE SEEN [facility] Comment on above: Performed By: #### U AMIC #### [facility] [address] [place] [address] Dr. Judah RODRIGUEZOVon 01-05-2022 CNOV Office Visit (GENE ) ALOREGLA DO ([id number]) 1970 F Date Time Provider Department 01/05/22 11:45 AM BRAD BONE JR During your visit today, we recorded the following information about you: Weight Height 70.8 kg 1.575 m Brad Bone MD 01/05/2022 1:31 PM Signed CONSULTATION Requesting provider: Renetta Ridley, BENEFITS REPRESENTATIVE ([facility]) [address] [facility] [address] Alo is here today for my opinion regarding abdominal pain. My final recommendation will be communicated back to the requesting provider by way of shared medical record or letter. Patient referred by PCP for GB evaluation. Has multiple GI symptoms for last 20 months. Reports epigastric bloating, nausea and vomiting. Symptoms aren't specifically precipitated by food except once (cheese pizza), Vomitted watery emesis. Also having consiptation. Last endoscopic W/U was in [place] about 3 years ago. Initial work up performed at OSH ([place], [place]): US - normal GB, wall = 1.6mm, no stones, no pericholecystic fluid, common bile duct measures 4.3mm HIDA:negative, EF = 35% (NORMAL EF >36%) Patient has cardiac history and is on PLAVIX. PAST MEDICAL HISTORY Diagnosis Date Allergic rhinitis, cause unspecified Allergy, airborne subst Anxiety state Dyspareunia Essential hypertension Fibromyalgia Genital herpes, unspecified under control Genital herpes Irritable bowel syndrome Irritable bowel Other and unspecified ovarian cyst 5 y/a Ovarian cyst Peripheral vascular disease (HCC) extensive, S/p right carotid stent and right iliac artery stent Renal artery stenosis (HCC) right Varicella without mention of complication Chickenpox PAST SURGICAL HISTORY Procedure Laterality Date COLONOSCOPY FLX DX W/COLLJ SPEC WHEN PFRMD 04/07/02 Colonoscopy LAPS ABD PRTMANDOMENTUM DX W/WO SPEC BR/WA SPX 5 yrs ago Laparoscopy Social History Tobacco Use Smoking status: Former Packs/day: 0.50 Years: 15.00 Pack years: 7.50 Types: Cigarettes Quit date: 12/22/2018 Years since quittin.0 Smokeless tobacco: Never Substance Use Topics Alcohol use: Not Currently Alcohol/week: 1.7 standard drinks Drug use: No FAMILY HISTORY Problem Relation Age of Onset other (brain aneurism) Mother age 46 other (healthy) Father 53 yrs. other (healthy) Sister 26 yrs. REVIEW OF SYSTEMS GENERAL: No weight loss, malaise or fevers. HEENT: Negative for frequent or significant headaches, Negative for changes in hearing, vision or dizziness, Negative for nose bleeds, Negative for difficulty swallowing or hoarsness RESPIRATORY: Negative for cough, hemoptysis, wheezing or shortness of breath CARDIOVASCULAR: Negative for chest pain, leg swelling or palpitations. : No history of dysuria, hematuria, frequency or incontinence. SKIN: Negative for lesions, rash, and itching NEURO: No history of headaches, syncope, paralysis, seizures or tremors PHYSICAL EXAMINATION There were no vitals taken for this visit. General Appearance: Well appearing, alert, in no acute distress, well-hydrated, well nourished. Skin: Color, texture, turgor normal, no suspicious rashes or lesions Head: Normocephalic, no masses, lesions, tenderness or abnormalities Neck: Supple, no adenopathy; thyroid symmetric, normal size, no bruits Lungs: Clear to auscultation. No wheezing, rhonchi, rales Heart: RRR without murmur, gallop, or rubs. No ectopy Abdomen: Soft, non-tender. Bowel sounds normal. No masses, organomegaly Extremities: No ankle edema. Assessment Nausea with vomiting Bloating Constipation Plan: Patient advised that symptoms are atypical for GB problems. Symptoms are precipitated with eating. She also did not experience trouble with HIDA test during administration of medications for EF test. There is a lot likelihood that her symptoms will improve with gallbladder surgery. Recommended evaluation by Gastroenterology. I offered appointment with [facility] and ordered has been placed. Patient given office business card. Brad Bone MD cc: Referring provider Renetta Ridley, BENEFITS REPRESENTATIVE ([facility]) [address] [facility] [address] Referring Provider: RENETTA RIDLEY [[id number]] Allergies As of Date: 01/05/2022 Noted Allergy Reaction AMLODIPINE 05/08/2019 7 - Swelling Comments: BLE swelling PENICILLINS 04/24/2002 Date Reviewed: 01/05/2022 Reviewed by: Krystyna Mcrae LPN - Fully Assessed Reason for Visit: Abdominal Pain [1] Cmt: 2 m Primary Visit Diagnosis:Nausea and vomiting, unspecified vomiting type [R11.2] Other Visit Diagnoses:Bloating [R14.0] Other constipation [K59.09] Order(s):CONSULT TO GASTROENTEROLOGY [3888] Order #: [id number]: 1 FUTURE Prescriptions as of 01/05/2022 - pantoprazole DR (PROTONIX) 40 mg tablet Take 40 mg by mouth once daily. - SYNTHROID 50 mcg tablet - conjugated estrogens (CA (more content not included)... Normal [facility] 12-28-2021 CNPN Telephone ([facility]) REGLA PRAJAPATI ([id number]) 1970 F Date Time Provider Department 12/28/21 MELIZA DOBBINS During your visit today, we recorded the following information about you: Meliza Dobbins RN 12/28/2021 1:36 PM Signed Spoke with patient regarding her OV tomorrow with Dr. Varela. Informed review of the reports not noting anything remarkable for the gallbladder except EF right at 35 %. Patient states she has been having nausea and vomiting and has noticed a little bit of blood at times. She said her PCP wanted her to have a second opinion of the gallbladder and then possibly EGD. Informed patient that Dr. Varela does not do EGD procedure and with the current symptoms and testing of the gallbladder without abnormality noted in the reports we will at times do an EGD or less invasive procedures first. Patient would like to see a GS who can evaluate both and I offered her to see Dr. Bone for 01/05 at 1145 and patient accepted Sherry Rollins 12/28/2021 4:28 PM Signed Appointment scheduled for 01/[address] Bone. Allergies As of Date: 12/28/2021 Noted Allergy Reaction AMLODIPINE 05/08/2019 7 - Swelling Comments: BLE swelling PENICILLINS 04/24/2002 Date Reviewed: 09/20/2021 Reviewed by: Ting Camilo MD - Fully Assessed Reason for Visit: Mat Inspector - Other [3602] Prescriptions as of 12/28/2021 - naltrexone capsule 4.5 mg (CPD) Take 1 capsule by mouth once daily. - tiZANidine HCl 4 mg capsule Take 4 mg by mouth twice daily as needed. - buPROPion HCL 200 mg 12 hr tablet Take 200 mg by mouth twice daily. - ALPRAZolam (XANAX) 0.5 mg tablet Take 0.5 mg by mouth three times daily as needed. - omeprazole (PRILOSEC) 20 mg capsule 40 mg once daily. - lisinopril (ZESTRIL, PRINIVIL) 5 mg tablet Take 1 tablet by mouth once daily. - ezetimibe (ZETIA) 10 mg tablet Take 1 tablet by mouth once daily. - atorvastatin (LIPITOR) 40 mg tablet Take 1 tablet by mouth daily at bedtime. - clopidogrel (PLAVIX) 75 mg tablet TAKE 1 TABLET BY MOUTH ONCE DAILY FOR 14 DAYS - aspirin, enteric coated (ASPIRIN, ENTERIC COATED) 81 mg EC tablet Take 81 mg by mouth once daily. - cholecalciferol (VITAMIN D) 1,000 unit tab tablet Take 1 capsule by mouth once daily. Problem List As Of Date 12/28/2021 Noted Resolved GOITER NOS [E04.9] 04/24/2002 OTHER MALAISE AND FATIGUE [R53.81, R53.83] 04/24/2002 PVD (peripheral vascular disease) ([facility]) [I73.9] 03/19/2019 Essential hypertension [I10] 03/19/2019 Dyslipidemia [E78.5] 03/19/2019 Chest pain [R07.9] 03/19/2019 Dyspnea on exertion [R06.09] 03/19/2019 Bilateral carotid artery stenosis [I65.23] 04/17/2019 Bilateral arm weakness [R29.898] 04/17/2019 Atherosclerosis [I70.90] 04/17/2019 Renal artery stenosis (HCC) [I70.1] 05/08/2019 TIA (transient ischemic attack) [G45.9] 01/26/2020 01/27/2020 Hyperventilation [R06.4] 01/27/2020 04/14/2021 PTSD (post-traumatic stress disorder) [F43.10] 09/11/2019 Hyperlipidemia [E78.5] 04/14/2020 Hiatal hernia [K44.9] 04/06/2020 Hemorrhoids [K64.9] 04/06/2020 Encounter Status:Closed by MELIZA DOBBINS on 12/28/21 Normal [facility] Referralon 022 Physician Referral [phone] [id number] CD:127 Normal [facility] NM HEPATOBILIARY SCAN W EFon 12-16-2021 NM HEPATOBILIARY SCAN W EF EXAMINATION: NM HEPATOBILIARY SCAN W EF HISTORY: Epigastric pain COMPARISON: No relevant comparison available. TECHNIQUE: Radionuclide hepatobiliary imaging was performed after intravenous injection of 4.9 mCi technetium 99m mebrofenin with sequential acquisitions every 1 minute for one hour. Hepatobiliary imaging with gallbladder ejection fraction analysis was then performed with sequential imaging every 1 minute for 60 minutes following 8 ounces of ensure plus by mouth. FINDINGS: LIVER: Normal, prompt and uniform radiotracer uptake and clearing. BILIARY DUCTS: Normal radioisotopic biliary excretion. GALLBLADDER: Normal with no evidence of cystic duct obstruction. INTESTINE: Normal with no evidence of common biliary ductal obstruction. EJECTION FRACTION: 35 % within 60 minutes. (Normal EF > 38%). OTHER: Negative. IMPRESSION: Normal hepatobiliary scan and gallbladder ejection fraction Electronically authenticated by: GURMEET PUGH Date: 2021-12-16 09:56 Normal [facility] AMYLASEon 12-12-2021 Amylase [Catalytic activity/Vol] 74 U/L Normal 25-115 [facility] Comment on above: Performed By: #### C MP, AARON, LIPA #### [facility] [address] [place] [address] Dr. Judah Peñaloza CBC AUTO DIFFon 12-12-2021 BASO # 0.0 103/ul Normal 0.0-0.1 [facility] Comment on above: Performed By: #### C BC #### [facility] [address] [address] [address] Judah Peñaloza Basophils/100 WBC (Bld) 0.2 % Normal 0.2-2.0 [facility] Comment on above: Performed By: #### C BC #### [facility] [address] [place] [address] Dr. Judah Peñaloza EO # 0.1 103/ul Normal 0.0-0.7 [facility] Comment on above: Performed By: #### C BC #### [facility] [address] [place] [address] Dr. Judah Peñaloza Eosinophils/100 WBC (Bld) 0.5 % Critically low 0.9-7.0 [facility] Comment on above: Performed By: #### C BC #### [facility] [address] [place] [address] Dr. Judah Peñaloza Erythrocyte distribution width (RBC) [Ratio] 14.1 % Normal 11.0-15.0 [facility] Comment on above: Performed By: #### C BC #### [facility] [address] [place] [address] Dr. Judah Peñaloza Hematocrit (Bld) [Volume fraction] 40.1 % Normal 36.0-48.0 [facility] Comment on above: Performed By: #### C BC #### [facility] [address] [place] [address] Dr. Judah Peñaloza Hemoglobin (Bld) [Mass/Vol] 13.5 g/dL Normal 12.0-16.0 [facility] Comment on above: Performed By: #### C BC #### [facility] [address] [place] [address] Dr. Judah Peñaloza IG # 0.03 10e3/ul Normal 0.00-0.03 [facility] Comment on above: Performed By: #### C BC #### [facility] [address] [place] [address] Dr. Judah Peñaloza IG % 0.3 % Normal 0.0-0.5 [facility] Comment on above: Performed By: #### C BC #### [facility] [address] [place] [address] Dr. Judah Peñaloza LYMPH # 2.7 103/ul Normal 1.2-3.8 [facility] Comment on above: Performed By: #### C BC #### [facility] [address] [place] [address] Dr. Judah Peñaloza Lymphocytes/100 WBC (Bld) 24.9 % Normal 20.5-60.0 [facility] Comment on above: Performed By: #### C BC #### [facility] [address] [place] [address] Dr. Judah Peñaloza MANUAL DIFF REQ NO Normal [facility] Comment on above: Performed By: #### C BC #### [facility] [address] [place] [address] Dr. Judah Peñaloza MCH (RBC) [Entitic mass] 28.5 pg Normal 26.7-34.0 [facility] Comment on above: Performed By: #### C BC #### [facility] [address] [place] [address] Dr. Judah Peñaloza MCHC (RBC) [Mass/Vol] 33.7 g/dL Normal 29.9-35.2 [facility] Comment on above: Performed By: #### C BC #### [facility] [address] [place] [address] Dr. Judah Peñaloza MCV (RBC) [Entitic vol] 84.8 fL Normal 81.0-99.0 [facility] Comment on above: Performed By: #### C BC #### [facility] [address] [place] [address] Dr. Judah Peñaloza MONO # 0.9 103/ul Critically high 0.3-0.8 [facility] Comment on above: Performed By: #### C BC #### [facility] [address] [place] [address] Dr. Judah Peñaloza Monocytes/100 WBC (Bld) 8.7 % Normal 1.7-12.0 [facility] Comment on above: Performed By: #### C BC #### [facility] [address] [place] [address] Dr. Judah Peñaloza NEUT # 7.0 103/ul Critically high 1.4-6.5 [facility] Comment on above: Performed By: #### C BC #### [facility] [address] [address] [address] Judah Peñaloza Neutrophils/100 WBC (Bld) 65.4 % Normal 43.0-75.0 [facility] Comment on above: Performed By: #### C BC #### [facility] [address] [address] [address] Judah Peñaloza Platelet mean volume (Bld) [Entitic vol] 9.0 fL Critically low 9.5-13.5 [facility] Comment on above: Performed By: #### C BC #### [facility] [address] [place] [address] Dr. Judah Peñaloza PLT 259 103/ul Normal 150-450 [facility] Comment on above: Performed By: #### C BC #### [facility] [address] [place] [address] Dr. Judah Peñaolza RBC 4.73 106/ul Normal 4.20-5.40 [facility] Comment on above: Performed By: #### C BC #### [facility] [address] [address] [address] Judah Peñaloza WBC 10.6 103/ul Normal 4.0-11.0 [facility] Comment on above: Performed By: #### C BC #### [facility] [address] [place] [address] Dr. Judah Peñaloza LIPASEon 12-12-2021 Lipase [Catalytic activity/Vol] 88.0 U/L Normal 73.0-393.0 [facility] Comment on above: Performed By: #### C AARON ZHU LIPA #### [facility] [address] [place] [address] Dr. Judah Peñaloza LIVER PROFILEon 12-12-2021 Albumin [Mass/Vol] 4.2 g/dL Normal 3.4-5.0 [facility] Comment on above: Performed By: #### C MP, AARON, LIPA #### [facility] [address] [address] [address] Judah Peñaloza Albumin/Globulin [Mass ratio] 1.4 {ratio} Normal [facility] Comment on above: Performed By: #### C MP, AARON, LIPA #### [facility] [address] [address] [address] Judah Peñaloza ALP [Catalytic activity/Vol] 127 U/L Critically high 46-116 [facility] Comment on above: Performed By: #### C MP, AARON, LIPA #### [facility] [address] [address] [address] Judah Peñaloza ALT [Catalytic activity/Vol] 54 U/L Normal 14-59 [facility] Comment on above: Performed By: #### C MP, AARON, LIPA #### [facility] [address] [address] [address] Judah Peñaloza AST [Catalytic activity/Vol] 36 U/L Normal 15-37 [facility] Comment on above: Performed By: #### C MP, AARON, LIPA #### [facility] [address] [address] [address] Judah Peñaloza BILI, CONJUGATED 0.2 mg/dL Normal 0.0-0.2 [facility] Comment on above: Performed By: #### C MP, AARON, LIPA #### [facility] [address] [address] [address] Judah Peñaloza Bilirubin [Mass/Vol] 0.8 mg/dL Normal 0.2-1.0 [facility] Comment on above: Performed By: #### C MP, AARON, LIPA #### [facility] [address] [address] [address] Judah Peñaloza Globulin (S) [Mass/Vol] 3.1 g/dL Normal [facility] Comment on above: Performed By: #### C MP, AARON, LIPA #### [facility] [address] [address] [address] Judah Peñaloza Protein [Mass/Vol] 7.3 g/dL Normal 6.4-8.2 [facility] Comment on above: Performed By: #### C AARON ZHU LIPA #### [facility] [address] [address] [address] Judah Peñaloza PROF CHEM 8 (BAS METB)on Anion gap [Moles/Vol] 18.2 mmol/L Normal Th [facility] Comment on above: Performed By: #### C AARON ZHU LIPA #### [facility] [address] [address] [address] Judah Peñaloza Calcium [Mass/Vol] 9.5 mg/dL Normal 8.5-10.1 [facility] Comment on above: Performed By: #### C AARON ZHU LIPA #### [facility] [address] [address] [address] Judah Peñaloza Chloride [Moles/Vol] 98 mmol/L Normal 98-107 [facility] Comment on above: Performed By: #### C AARON ZHU LIPA #### [facility] [address] [place] [address] Dr. Judah Peñaloza CO2 [Moles/Vol] 23.7 mmol/L Normal 21.0-32.0 [facility] Comment on above: Performed By: #### C AARON ZHU LIPA #### [facility] [address] [place] [address] Dr. Judah Peñaloza Creatinine [Mass/Vol] 2.02 mg/dL Critically high 0.55-1.02 [facility] Comment on above: Performed By: #### C AARON ZHU LIPA #### [facility] [address] [place] [address] Dr. Judah Peñaloza EGFR-AF [place] 32 mL/min/1.73m2 Critically low >=60 [facility] Comment on above: Performed By: #### C AARON ZHU LIPA #### [facility] [address] [place] [address] Dr. Judah Peñaloza EGFR-NON AF [place] 26 mL/min/1.73m2 Critically low >=60 [facility] Comment on above: Performed By: #### C AARON ZHU LIPA #### [facility] [address] [address] [address] Judah Peñaloza Glucose [Mass/Vol] 116 mg/dL Critically high 74-106 [facility] Comment on above: Performed By: #### C MP, AARON, LIPA #### [facility] [address] [address] [address] Judah Peñaloza Potassium [Moles/Vol] 3.9 mmol/L Normal 3.5-5.1 [facility] Comment on above: Performed By: #### C MP, AARON, LIPA #### [facility] [address] [address] [address] Judah Peñaloza Sodium [Moles/Vol] 136 mmol/L Normal 136-145 [facility] Comment on above: Performed By: #### C MP, AARON, LIPA #### [facility] [address] [place] [address] Dr. Judah Peñaloza Urea nitrogen [Mass/Vol] 24.0 mg/dL Critically high 7.0-18.0 [facility] Comment on above: Performed By: #### C AUDRA, AARON, LIPA #### [facility] [address] [address] [address] Judah Peñaloza Urea nitrogen/Creatinine [Mass ratio] 11.9 mg/mg Normal [facility] Comment on above: Performed By: #### C AUDRA, AARON, LIPA #### [facility] [address] [place] [address] Dr. Judah Peñaloza US SINGLE QUAD RT UPPERon US SINGLE QUAD RT UPPER EXAMINATION: US SINGLE QUAD RT UPPER HISTORY: Epigastric pain COMPARISON: No relevant comparison available. FINDINGS: The liver is normal in size measuring 13.2 cm in length. Normal contour with diffuse increased echotexture, contour and echotexture. No focal hepatic mass. Hepatopedal flow in the main portal vein The gallbladder is normal in appearance. The gallbladder wall measures 1.6 mm. Positive sonographic Dominguez sign. No cholelithiasis or pericholecystic fluid. The common bile duct measures 4.3 mm, normal The visualized pancreas is normal The right kidney is normal in appearance measuring 10.1 x 3.2 x 5.0 cm IMPRESSION: Increased hepatic echotexture suggesting steatosis Positive sonographic Dominguez sign with normal sonographic appearance of the gallbladder Electronically authenticated by: GURMEET PUGH Date: 2021-12-12 10:00 Normal [facility] H PYLORI ANTIBODY IGGon 11-05 H. PYLORI IGG ABS 0.35 Index Value Normal 0.00-0.79 [facility] Comment on above: Result Comment: Nega tive <0.80 Equivocal 0.80 - 0.89 Positive >0.89 Performed By: #### H PYLLC #### [facility] [address] [place] [address] Dr. Judah Peñaloza AMYLASEon 11-29-2021 Amylase [Catalytic activity/Vol] 73 U/L Normal 25-115 [facility] Comment on above: Performed By: #### C MP, AARON, LIPA #### [facility] [address] [place] [address] Dr. Judah Peñaloza CBC AUTO DIFFon 11-29-2021 BASO # 0.1 103/ul Normal 0.0-0.1 [facility] Comment on above: Performed By: #### C BC #### [facility] [address] [place] [address] Dr. Judah Peñaloza Basophils/100 WBC (Bld) 0.6 % Normal 0.2-2.0 [facility] Comment on above: Performed By: #### C BC #### [facility] [address] [place] [address] Dr. Judah Peñaloza EO # 0.1 103/ul Normal 0.0-0.7 [facility] Comment on above: Performed By: #### C BC #### [facility] [address] [place] [address] Dr. Judah Peñaloza Eosinophils/100 WBC (Bld) 0.7 % Critically low 0.9-7.0 [facility] Comment on above: Performed By: #### C BC #### [facility] [address] [place] [address] Dr. Judah Peñaloza Erythrocyte distribution width (RBC) [Ratio] 14.0 % Normal 11.0-15.0 [facility] Comment on above: Performed By: #### C BC #### [facility] [address] [place] [address] Dr. Judah Peñaloza Hematocrit (Bld) [Volume fraction] 42.7 % Normal 36.0-48.0 [facility] Comment on above: Performed By: #### C BC #### [facility] [address] [place] [address] Dr. Judah Peñaloza Hemoglobin (Bld) [Mass/Vol] 13.9 g/dL Normal 12.0-16.0 [facility] Comment on above: Performed By: #### C BC #### [facility] [address] [place] [address] Dr. Judah Peñaloza IG # 0.02 10e3/ul Normal 0.00-0.03 [facility] Comment on above: Performed By: #### C BC #### [facility] [address] [place] [address] Dr. Judah Peñaloza IG % 0.2 % Normal 0.0-0.5 [facility] Comment on above: Performed By: #### C BC #### [facility] [address] [place] [address] Dr. Judah Peñaloza LYMPH # 3.1 103/ul Normal 1.2-3.8 [facility] Comment on above: Performed By: #### C BC #### [facility] [address] [place] [address] Dr. Judah Peñaloza Lymphocytes/100 WBC (Bld) 34.5 % Normal 20.5-60.0 [facility] Comment on above: Performed By: #### C BC #### [facility] [address] [place] [address] Dr. Judah Peñaloza MANUAL DIFF REQ NO Normal [facility] Comment on above: Performed By: #### C BC #### [facility] [address] [place] [address] Dr. Judah Peñaloza MCH (RBC) [Entitic mass] 28.2 pg Normal 26.7-34.0 [facility] Comment on above: Performed By: #### C BC #### [facility] [address] [address] [address] Judah Peñaloza MCHC (RBC) [Mass/Vol] 32.6 g/dL Normal 29.9-35.2 [facility] Comment on above: Performed By: #### C BC #### [facility] [address] [place] [address] Dr. Judah Peñaloza MCV (RBC) [Entitic vol] 86.6 fL Normal 81.0-99.0 [facility] Comment on above: Performed By: #### C BC #### [facility] [address] [place] [address] Dr. Judah Peñaloza MONO # 0.7 103/ul Normal 0.3-0.8 [facility] Comment on above: Performed By: #### C BC #### [facility] [address] [place] [address] Dr. Judah Peñaloza Monocytes/100 WBC (Bld) 7.7 % Normal 1.7-12.0 [facility] Comment on above: Performed By: #### C BC #### [facility] [address] [place] [address] Dr. Judah Peñaloza NEUT # 5.1 103/ul Normal 1.4-6.5 [facility] Comment on above: Performed By: #### C BC #### [facility] [address] [place] [address] Dr. Judah Peñaloza Neutrophils/100 WBC (Bld) 56.3 % Normal 43.0-75.0 [facility] Comment on above: Performed By: #### C BC #### [facility] [address] [place] [address] Dr. Judah Peñaloza Platelet mean volume (Bld) [Entitic vol] 9.3 fL Critically low 9.5-13.5 [facility] Comment on above: Performed By: #### C BC #### [facility] [address] [place] [address] Dr. Judah Peñaloza PLT 382 103/ul Normal 150-450 [facility] Comment on above: Performed By: #### C BC #### [facility] [address] [place] [address] Dr. Judah Peñaloza RBC 4.93 106/ul Normal 4.20-5.40 [facility] Comment on above: Performed By: #### C BC #### [facility] [address] [place] [address] Dr. Judah Peñaloza WBC 9.0 103/ul Normal 4.0-11.0 [facility] Comment on above: Performed By: #### C BC #### [facility] [address] [place] [address] Dr. Judah Peñaloza LIPASEon 11-29-2021 Lipase [Catalytic activity/Vol] 89.0 U/L Normal 73.0-393.0 [facility] Comment on above: Performed By: #### C MP, AARON, LIPA #### [facility] [address] [place] [address] Dr. Judah Peñaloza PROF 14(COMP METB)on 022 Albumin [Mass/Vol] 4.3 g/dL Normal 3.4-5.0 [facility] Comment on above: Performed By: #### C MP, AARON, LIPA #### [facility] [address] [place] [address] Dr. Judah Peñaloza Albumin/Globulin [Mass ratio] 1.2 {ratio} Normal [facility] Comment on above: Performed By: #### C MP, AARON, LIPA #### [facility] [address] [place] [address] Dr. Judah Peñaloza ALP [Catalytic activity/Vol] 117 U/L Critically high 46-116 [facility] Comment on above: Performed By: #### C MP, AARON, LIPA #### [facility] [address] [place] [address] Dr. Judah Peñaloza ALT [Catalytic activity/Vol] 50 U/L Normal 14-59 [facility] Comment on above: Performed By: #### C MP, AARON, LIPA #### [facility] [address] [place] [address] Dr. Judah Peñaloza Anion gap [Moles/Vol] 17.0 mmol/L Normal Th e [facility] Comment on above: Performed By: #### C AARON ZHU LIPA #### [facility] [address] [place] [address] Dr. Judah Peñaloza AST [Catalytic activity/Vol] 37 U/L Normal 15-37 [facility] Comment on above: Performed By: #### C AARON ZHU, LIPA #### [facility] [address] [place] [address] Dr. Judah Peñaloza Bilirubin [Mass/Vol] 0.6 mg/dL Normal 0.2-1.0 [facility] Comment on above: Performed By: #### C AAORN ZHU, LIPA #### [facility] [address] [place] [address] Dr. Judah Peñaloza Calcium [Mass/Vol] 9.5 mg/dL Normal 8.5-10.1 [facility] Comment on above: Performed By: #### C AARON ZHU LIPA #### [facility] [address] [place] [address] Dr. Judah Peñaloza Chloride [Moles/Vol] 100 mmol/L Normal 98-107 [facility] Comment on above: Performed By: #### C AARON ZHU, LIPA #### [facility] [address] [place] [address] Dr. Judah Peñaloza CO2 [Moles/Vol] 24.0 mmol/L Normal 21.0-32.0 [facility] Comment on above: Performed By: #### C AARON ZHU, LIPA #### [facility] [address] [place] [address] Dr. Judah Peñaloza Creatinine [Mass/Vol] 0.97 mg/dL Normal 0.55-1.02 [facility] Comment on above: Performed By: #### C AARON ZHU LIPA #### [facility] [address] [place] [address] Dr. Judah Peñaloza EGFR-AF [place]THER[place] >60 Normal >=60 [facility] Comment on above: Performed By: #### C AARON ZHU, LIPA #### [facility] [address] [address] [address] Judah Peñaloza EGFR-NON AF [place] >60 Normal >=60 [facility] Comment on above: Performed By: #### C AARON ZHU LIPA #### [facility] [address] [address] [address] Judah Peñaloza Globulin (S) [Mass/Vol] 3.5 g/dL Normal T [facility] Comment on above: Performed By: #### C AARON ZHU LIPA #### [facility] [address] [place] [address] Dr. Judah Peñaloza Glucose [Mass/Vol] 105 mg/dL Normal 74-106 [facility] Comment on above: Performed By: #### C AARON ZHU LIPA #### [facility] [address] [place] [address] Dr. Judah Peñaloza Potassium [Moles/Vol] 4.0 mmol/L Normal 3.5-5.1 [facility] Comment on above: Performed By: #### C AARON ZHU LIPA #### [facility] [address] [place] [address] Dr. Judah Peñaloza Protein [Mass/Vol] 7.8 g/dL Normal 6.4-8.2 [facility] Comment on above: Performed By: #### C AARON ZHU LIPA #### [facility] [address] [place] [address] Dr. Judah Peñaloza Sodium [Moles/Vol] 137 mmol/L Normal 136-145 [facility] Comment on above: Performed By: #### C AARON ZHU LIPA #### [facility] [address] [place] [address] Dr. Judah Peñaloza Urea nitrogen [Mass/Vol] 13.0 mg/dL Normal 7.0-18.0 [facility] Comment on above: Performed By: #### C AARON ZHU LIPA #### [facility] [address] [address] [address] Judah Peñaloza Urea nitrogen/Creatinine [Mass ratio] 13.4 mg/mg Normal [facility] Comment on above: Performed By: #### C MP, AARON, LIPA #### [facility] [address] [address] [address] Judah Peñaloza UA RANDOM W/MICROSCOPICon BACTERIA TRACE Abnormal NONE SEEN The [facility] Comment on above: Performed By: #### U AMIC #### [facility] [address] [address] [address] Judah Peñaloza Bilirubin Ql (U) Negative Normal NEGATIVE [facility] Comment on above: Performed By: #### U AMIC #### [facility] [address] [address] [address] Judah Peñaloza CAST NONE SEEN Normal NONE SEEN The [facility] Comment on above: Performed By: #### U AMIC #### [facility] [address] [address] [address] Judah Peñaloza Clarity (U) CLOUDY Abnormal CLEAR [facility] Comment on above: Performed By: #### U AMIC #### [facility] [address] [address] [address] Judah Peñaloza Color (U) YELLOW Normal YELLOW [facility] Comment on above: Performed By: #### U AMIC #### [facility] [address] [address] [address] Judah Peñaloza Crystals LM Nom (Urine sed) SEEN Abnormal NONE SEEN The [facility] Comment on above: Performed By: #### U AMIC #### [facility] [address] [address] [address] Judah Peñaloza Epithelial cells LM Ql (Urine sed) RARE Normal NONE SEEN /RARE [facility] Comment on above: Performed By: #### U AMIC #### [facility] [address] [address] [address] Judah Peñaloza Glucose Ql (U) Negative Normal NEGATIVE The [facility] Comment on above: Performed By: #### U AMIC #### [facility] [address] [address] [address] Judah Peñaloza Hemoglobin Ql (U) Negative Normal NEGATIVE The [facility] Comment on above: Performed By: #### U AMIC #### [facility] [address] [address] [address] Judah Peñaloza Ketones Ql (U) Negative Normal NEGATIVE The [facility] Comment on above: Performed By: #### U AMIC #### [facility] [address] [place] [address] Dr. Judah Peñaloza LEUKOCYTES Negative Normal NEGATIVE The [facility] Comment on above: Performed By: #### U AMIC #### [facility] [address] [address] [address] Judah Peñaloza MUCOUS NONE SEEN Normal NONE SEEN The [facility] Comment on above: Performed By: #### U AMIC #### [facility] [address] [place] [address] Dr. Judah Peñaloza Nitrite Ql (U) Negative Normal NEGATIVE The [facility] Comment on above: Performed By: #### U AMIC #### [facility] [address] [place] [address] Dr. Judah Peñaloza pH (U) 6.0 [pH] Normal 5-9 [facility] Comment on above: Performed By: #### U AMIC #### [facility] [address] [place] [address] Dr. Judah Peñaloza RBC NONE SEEN Abnormal 0-2 [facility] Comment on above: Performed By: #### U AMIC #### [facility] [address] [place] [address] Dr. Judah Peñaloza SPEC GRAVITY 1.025 Normal 1.005-<=1.0 25 [facility] Comment on above: Performed By: #### U AMIC #### [facility] [address] [place] [address] Dr. Judah Peñaloza UA PROTEIN Negative Normal NEGATIVE/ TRACE The [facility] Comment on above: Performed By: #### U AMIC #### [facility] [address] [place] [address] Dr. Judah Peñaloza Urobilinogen Qn (U) 1.0 {Gonzales'U}/dL Normal 0.2 - 1. 0 [facility] Comment on above: Performed By: #### U AMIC #### [facility] [address] [place] [address] Dr. Judah Peñaloza WBC 0-2 Abnormal NONE SEEN The [facility] Comment on above: Performed By: #### U AMIC #### [facility] [address] [place] [address] Dr. Judah Peñaloza US THYROIDon 10-31-2021 US THYROID EXAMINATION: US THYROID HISTORY: Thyroid nodule COMPARISON: No relevant comparison available. TECHNIQUE: Sonographic images of the thyroid gland were obtained. FINDINGS: The right thyroid lobe is normal in size, contour and homogeneous echotexture measuring 5.0 x 1.3 x 1.4 cm. 6 x 4 x 4 mm area of anechoic echogenicity likely colloid cyst The thyroid isthmus measures 2.3 mm, no nodules. This echotexture The left thyroid lobe is normal in size, contour and homogeneous echotexture measuring 3.9 x 1.3 x 1.3 cm. 3 mm nodule, nonspecific IMPRESSION: No significant thyroid nodules observed Electronically authenticated by: GURMEET PUGH Date: 2021-10-31 16:25 Normal The [facility] FREE T3on 10-25-2021 FREE T3 2.52 pg/mlL Normal 2.18-3.98 [facility] Comment on above: Performed By: #### C AARON ZHU LIPA #### [facility] [address] [place] [address] Dr. Judah Peñaloza FREE T4on 10-25-2021 Free T4 [Mass/Vol] 1.07 ng/dL Normal 0.76-1.46 [facility] Comment on above: Performed By: #### C AARON ZHU LIPA #### [facility] [address] [place] [address] Dr. Judah Peñaloza TSHon 10-25-2021 TSH 0.747 uIU/mL Normal 0.358-3.740 The [facility] Comment on above: Performed By: #### C AARON ZHU LIPA #### [facility] [address] [place] [address] Dr. Judah Peñaloza FREE T4on 09-22-2021 Free T4 [Mass/Vol] 1.11 ng/dL Normal 0.76-1.46 [facility] Comment on above: Performed By: #### C AARON ZHU, LIPA #### [facility] [address] [address] [address] Judah Peñaloza PROF CHEM 8 (BAS METB)on Anion gap [Moles/Vol] 14.0 mmol/L Normal Th [facility] Comment on above: Performed By: #### C AARON ZHU, LIPA #### [facility] [address] [place] [address] Dr. Judah Peñaloza Calcium [Mass/Vol] 9.1 mg/dL Normal 8.5-10.1 [facility] Comment on above: Performed By: #### C AARON ZHU LIPA #### [facility] [address] [place] [address] Dr. Judah Peñaloza Chloride [Moles/Vol] 103 mmol/L Normal 98-107 [facility] Comment on above: Performed By: #### C AARON ZHU, LIPA #### [facility] [address] [place] [address] Dr. Judah Peñaloza CO2 [Moles/Vol] 27.1 mmol/L Normal 21.0-32.0 [facility] Comment on above: Performed By: #### C AARON ZHU, LIPA #### [facility] [address] [place] [address] Dr. Judah Peñaloza Creatinine [Mass/Vol] 0.91 mg/dL Normal 0.55-1.02 [facility] Comment on above: Performed By: #### C AARON ZHU, LIPA #### [facility] [address] [place] [address] Dr. Judah Peñaloza EGFR-AF [place] >60 Normal >=60 [facility] Comment on above: Performed By: #### C AARON ZUH, LIPA #### [facility] [address] [place] [address] Dr. Judah Peñaloza EGFR-NON AF [place] >60 Normal >=60 [facility] Comment on above: Performed By: #### C AARON ZHU, LIPA #### [facility] [address] [place] [address] Dr. Judah Peñaloza Glucose [Mass/Vol] 101 mg/dL Normal 74-106 [facility] Comment on above: Performed By: #### C AARON ZHU LIPA #### [facility] [address] [address] [address] Judah Peñaloza Potassium [Moles/Vol] 4.1 mmol/L Normal 3.5-5.1 [facility] Comment on above: Performed By: #### C AARON ZHU, LIPA #### [facility] [address] [place] [address] Dr. Judah Peñaloza Sodium [Moles/Vol] 140 mmol/L Normal 136-145 [facility] Comment on above: Performed By: #### C AARON ZHU LIPA #### [facility] [address] [place] [address] Dr. Judah Peñaloza Urea nitrogen [Mass/Vol] 11.0 mg/dL Normal 7.0-18.0 [facility] Comment on above: Performed By: #### C AARON ZHU, LIPA #### [facility] [address] [place] [address] Dr. Judah Peñaloza Urea nitrogen/Creatinine [Mass ratio] 12.1 mg/mg Normal [facility] Comment on above: Performed By: #### C AARON ZHU, LIPA #### [facility] [address] [place] [address] Dr. Judah Peñaloza TSHon 09-22-2021 TSH 0.118 uIU/mL Critically low 0.358-3.740 [facility] Comment on above: Performed By: #### C AARON ZHU, LIPA #### [facility] [address] [place] [address] Dr. Judah Peñaloza TSH RANGE SEE BELOW Normal [facility] Comment on above: Result Comment: <0.3 4 UIU/ml HYPERTHYROID 0.34-5.60 UIU/ml EUTHYROID >5.60 UIU/ml HYPOTHYROID Performed By: #### C AARON ZHU, LIPA #### [facility] [address] [place] [address] Dr. Judah Campos 09-20-2021 CNOV Office Visit (MIRTA ) ALOREGLA Guillermo ([id number]) 1970 F Date Time Provider Department 09/20/21 3:00 PM TING CAMILO During your visit today, we recorded the following information about you: Temperature Pulse Blood pressure Weight 97.7 degrees 90/minute 129/85 77.1 kg Height 1.575 m Ting Camilo MD 09/20/2021 3:28 PM Signed Chief complaint: follow up NANCY HPI: Ms. Boston is a 50yo female here for followup bilateral NANCY in the setting of diffuse atherosclerotic disease with preserved renal function. Previously on lisinopril, using prazosin for other reasons. A few weeks back, she developed HTN and hypotension on Easter, then developed diarrhea and the following day passed out with severe hypotension requiring admission. CURT with SCr by her report over 2, repeat by primary care office 08/29 was 1.0mg/dL (I viewed on her portal on her phone). She remains on the lisinopril 10mg once daily. Renal doppler done Apr 2021 was unchanged from 04/2020. PAST MEDICAL HISTORY Diagnosis Date - Allergic rhinitis, cause unspecified Allergy, airborne subst - Anxiety state - Dyspareunia - Essential hypertension - Fibromyalgia - Genital herpes, unspecified under control Genital herpes - Irritable bowel syndrome Irritable bowel - Other and unspecified ovarian cyst 5 y/a Ovarian cyst - Peripheral vascular disease (HCC) extensive, S/p right carotid stent and right iliac artery stent - Renal artery stenosis (HCC) right - Varicella without mention of complication Chickenpox PAST SURGICAL HISTORY Procedure Laterality Date - COLONOSCOPY FLX DX W/COLLJ SPEC WHEN PFRMD 04/07/02 Colonoscopy - LAPS ABD PRTMANDOMENTUM DX W/WO SPEC BR/WA SPX 5 yrs ago Laparoscopy Current Outpatient Medications Medication Sig - tiZANidine HCl 4 mg capsule Take 4 mg by mouth twice daily as needed. - buPROPion HCL 200 mg 12 hr tablet Take 200 mg by mouth twice daily. - ALPRAZolam (XANAX) 0.5 mg tablet Take 0.5 mg by mouth three times daily as needed. - omeprazole (PRILOSEC) 20 mg capsule 40 mg once daily. - lisinopril (ZESTRIL, PRINIVIL) 5 mg tablet Take 1 tablet by mouth once daily. - ezetimibe (ZETIA) 10 mg tablet Take 1 tablet by mouth once daily. - atorvastatin (LIPITOR) 40 mg tablet Take 1 tablet by mouth daily at bedtime. - clopidogrel (PLAVIX) 75 mg tablet TAKE 1 TABLET BY MOUTH ONCE DAILY FOR 14 DAYS - aspirin, enteric coated (ASPIRIN, ENTERIC COATED) 81 mg EC tablet Take 81 mg by mouth once daily. - cholecalciferol (VITAMIN D) 1,000 unit tab tablet Take 1 capsule by mouth once daily. No current facility-administered medications for this visit. ALLERGIES Allergen Reactions - Amlodipine Swelling BLE swelling - Penicillins Social History Tobacco Use - Smoking status: Former Smoker Packs/day: 0.50 Years: 15.00 Pack years: 7.50 Quit date: 12/22/2018 Years since quittin.7 - Smokeless tobacco: Never Used Substance Use Topics - Alcohol use: Not Currently Alcohol/week: 1.7 standard drinks - Drug use: No FAMILY HISTORY Problem Relation Age of Onset - other (brain aneurism) Mother age 46 - other (healthy) Father 53 yrs. - other (healthy) Sister 26 yrs. Review of systems: General: Negative for weight loss, night sweats, fever, and fatigue Head/Neck: Negative for metallic or bitter taste Cardiac: Positive for syncope, lightheadedness, and chest pain or pressure; Negative for palpitations, and dizziness Vascular: Positive for edema; Pulmonary: Positive for dyspnea; Negative for cough GastroIntestinal: Positive for constipation; Negative for nausea, loss of appetite, emesis, diarrhea, and abdominal pain Genito-Urinary: Negative for pink or red urine, pain with urination, groin pain, flank pain, and decreased urine Hematology: Positive for easy bruising; Other: Positive for daytime somnolence; BP 129/85 Pulse 90 Temp 36.5 ?C (97.7 ?F) (Oral) Ht 157.5 cm (5' 2 ) Wt 77.1 kg (169 lb 14.4 oz) BMI 31.08 kg/m? BP ? standardized method Pulse 1 BP #1: 120/82 Pulse #1: 90 beats/min 2 BP #2 : 136/86 Pulse #2 : 91 beats/min 3 BP #3 : 130/87 Pulse #3 : 91 beats/min Average Average BP: 129/85 Average Pulse: 90 beats/min Orthostatic vitals Supine Sitting Standing Standing BP : 130/94 Standing pulse : 97 BP cuff location BP cuff location: Left upper arm BP cuff size BP cuff size: regular adult Comments for BP values Comments for BP values: none First BP (right) First BP (left) Exam: Constitutional: Mental status: alert and oriented x4. No acute distress. ENT: Eyes: No icterus, not injected. Cardiovascular: Heart: normal rate, regular rhythm, no murmurs, no rubs. Lungs: Symmetric lung expansion. Clear to auscultation without wheezes, rales or rubs. Extremities: No edema Skin: No jaundice Labs reviewed Creatinine (more content not included)... Normal [facility] URINALYSIS, REFLEX MICROSCOP ICon 09-20-2021 Bilirubin Ql (U) Negative Normal Negative [facility] Comment on above: Order Comment: Speci men Type: URINE SPECIMENOrdering Facility: [facility] Address: [address] [place] [address] Performed By: #### L [id number] ####RENAL [facility] Q7CLIA [id number] [place] [address] [place] Clarity (Unsp spec) Clear Normal Clear [facility] Comment on above: Order Comment: Speci men Type: URINE SPECIMENOrdering Facility: [facility] Address: [address] [address] Performed By: #### L [id number] ####RENAL [facility] Q7CLIA [id number] [place] [address] [place] Color (U) Light Yellow Normal Yellow [facility] Comment on above: Order Comment: Speci men Type: URINE SPECIMENOrdering Facility: [facility] Address: [address] [place] [address] Performed By: #### L [id number] ####RENAL [facility] Q7CLIA [id number] [address] [place] Glucose Test strip (U) [Mass/Vol] Negative Normal Negative [facility] Comment on above: Order Comment: Speci men Type: URINE SPECIMENOrdering Facility: [facility] Address: [address] [place], [place] [id number] Performed By: #### L [id number] ####RENAL [facility] Q7CLIA [id number] [place] [address] [place] Hemoglobin Ql (U) Negative Normal Negative [facility] Comment on above: Order Comment: Speci men Type: URINE SPECIMENOrdering Facility: [facility] Address: [address] [place], [place] [id number] Performed By: #### L [id number] ####RENAL LAB Q7CLIA [id number] [address] [place] Ketones Ql (U) Negative Normal Negative [facility] Comment on above: Order Comment: Speci men Type: URINE SPECIMENOrdering Facility: [facility] Address: [address] [place], [place] [id number] Performed By: #### L [id number] ####RENAL [facility] Q7CLIA [id number] [address] [place] Leukocyte esterase Test strip Ql (U) Negative Normal Negative [facility] Comment on above: Order Comment: Speci men Type: URINE SPECIMENOrdering Facility: [facility] Address: [address] [place] [address] Performed By: #### L [id number] ####RENAL [facility] Q7CLIA [id number] [place] [address] [place] Nitrite Ql (U) Negative Normal Negative [facility] Comment on above: Order Comment: Speci men Type: URINE SPECIMENOrdering Facility: [facility] Address: [address] [address] Performed By: #### L [id number] ####RENAL [facility] Q7CLIA [id number] [place] [address] [place] pH (U) 6.5 [pH] Normal 5.0-8.0 [facility] Comment on above: Order Comment: Speci men Type: URINE SPECIMENOrdering Facility: [facility] Address: [address] [place] [address] Performed By: #### L [id number] ####RENAL [facility] Q7CLIA [id number] [place] [address] [place] Protein (U) [Mass/Vol] Negative Normal Negative [facility] Comment on above: Order Comment: Speci men Type: URINE SPECIMENOrdering Facility: [facility] Address: [address] [place] [address] Performed By: #### L [id number] ####RENAL [facility] Q7CLIA [id number] [place] [address] [place] Specific gravity (U) [Rel density] 1.009 Normal 1.005-1.030 [facility] Comment on above: Order Comment: Speci men Type: URINE SPECIMENOrdering Facility: [facility] Address: [address] [place] [address] Performed By: #### L [id number] ####RENAL [facility] Q7CLIA [id number] [address] [place] Urobilinogen Ql (U) Negative Normal Negative [facility] Comment on above: Order Comment: Speci men Type: URINE SPECIMENOrdering Facility: [facility] Address: [address] [place], [place] [address] Performed By: #### L [id number] ####RENAL [facility] Q7CLIA [id number] [place] [address] [place] CNOVon 09-09-2021 CNOV Office Visit (CARDAV ) REGLA PRAJAPATI ([id number]) 1970 F Date Time Provider Department 09/09/21 1:20 PM VIK SUTHERLAND During your visit today, we recorded the following information about you: Pulse Blood pressure Weight Height 96/minute 102/70 74.8 kg 1.575 m Vik Sutherland MD 09/09/2021 1:56 PM Signed CHIEF COMPLAINT:? Shortness of breath ? HISTORY OF PRESENT ILLNESS: is a 50 year old female with a?PMH significant for dyslipidemia, HTN, PAD with carotid stenosis s/p?ostial?right common carotid?12/24 Precise self expandable?stent?place ment just above the aortic arch?and?02/03 self expandable?right?commo n?iliac stent, aberrant retropharyngeal right subclavian artery,?tobacco use disorder (quit 06/2017),?hypertriglyce ridemia,?IBS,?depressi on and?anxiety disorder?who presents for a follow up visit. She continues to have weakness in both upper arms with folding laundry or other repetitive activities, and with raising her arms over her head. She has shortness of breath daily, not related to activity, feels like pressure/tightness on her chest making it hard to breathe. She has had some dry cough since starting lisinopril, not horrible and wanted to make us aware. She felt like her face was swollen and so were her legs after stopping HCTZ but that's improved somewhat. ? Her mood is horrible, cries all the time, has been snapping at people, family feud at home, worried about her health and her disability application denied. She has an appointment with a therapist coming up.? ? IMPRESSION: Dyspnea Anxiety and depression HTN Peripheral vascular disease Hypertriglyceridemia? ? PLAN AND RECOMMENDATIONS: Dyspnea: Unclear the exact cause as symptoms happen with so many different instances including bloating, laughing a lot, exertion or rest. 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 Evaluation so far includes coronary angiography 03/28/19 with no significant disease, echo 03/19/19 with normal LVEF, diastolic function and no significant valvular abnormalities. Encouraged her to continue physical activity as tolerated. She will see her PCP regarding evaluation for bloating given her history of IBS.? ? Anxiety and depression: She will start therapy soon, continue vortioxetine 10mg and clonazepam per psychiatry team. She is very anxious about her health among other things at home, so we spent time reassuring her that imaging does not show abnormalities like a brain aneurysm which her mother of at age 46. ? HTN: Did not tolerate amlodipine 10mg due to swelling. She felt sun sensitivity on HCTZ 25mg. Currently tolerating lisinopril 5mg though has a mild cough. Advised her that we could try losartan if cough persists, or a different antihypertensive.? ? Peripheral vascular disease: S/p right ostial carotid and right common iliac artery stents. She has 60-99% right and 0-59% left renal artery stenosis. She complains of weakness of both arms with repetitive activities or raising her arms to comb her hair. It is not clear if these symptoms are related to the noted CTA abnormalities. Appreciate input from the vascular medicine and surgery colleagues. Continue medical management with aspirin 81mg, clopidogrel 75mg, atorvastatin 40mg, ezetimibe 10mg every day.? ? Hypertriglyceridemia: TG has improved since starting atorvastatin. She will start taking ezetimibe 10mg. ? Follow up in 6-8 weeks.?? ? PHYSICAL EXAMINATION: BP 107/74 ? Pulse 68 ? Ht 157.5 cm (5' 2 ) ? Wt 68.3 kg (150 lb 9.6 oz) ? BMI 27.55 kg/m? ? HEENT:?normocephalic, EOMI?? Neck: No JVD, no carotid bruits Heart:?regular rhythm,?normal rate,?no murmur, rub or gallop? Lungs:?clear to auscultation? Abdomen:?bowel sounds present , nontender, nondistended? Extremities:?no edema , peripheral pulses intact Musculoskeletal:?chest wall nontender? Neurological:??alert and oriented , no focal motor deficits appreciated Psychiatric:?appropria te and cooperative? Skin:?no rash, cellulitis or lesions appreciated? ? CARDIOVASCULAR MEDICINE TESTING: I have personally reviewed??laboratory results, echocardiogram report, cardiac catheterization report and vascular imaging report ? CTA upper extremities 11/27/19 IMPRESSION: * ?Aberrant right subclavian artery arising off the more distal aspect of the thoracic arch: moderate to severe stenosis at its origin due to eccentric plaque. * ?Mild left subclavian artery origin stenosis. * ?Streak artifact from the innominate vein contrast limits evaluation of bilateral carotid artery origins. * ?The right common carotid artery is the first vessel arising off the arch, is status post stent placement and imaging suggestive of significant in-stent reste (more content not included)... Normal [facility] THYROID ANTIBODIESon Thyroglobulin Antibody <1.0 Normal 0.0-0.9 [facility] Comment on above: Result Comment: Thyr oglobulin Antibody measured by [employer] Methodology Performed By: #### C BC #### [facility] [address] [place] [address] Dr. Judah Peñaloza Thyroid Peroxidase (TPO) Ab <8 Normal 0-34 [facility] Comment on above: Performed By: #### C BC #### [facility] [address] [place] [address] Dr. Judah Peñaloza PROF CHEM 8 (BAS METB)on Anion gap [Moles/Vol] 15.4 mmol/L Normal [facility] Comment on above: Performed By: #### C AARON ZHU LIPA #### [facility] [address] [place] [address] Dr. Judah Peñaloza Calcium [Mass/Vol] 8.8 mg/dL Normal 8.5-10.1 [facility] Comment on above: Performed By: #### C AARON ZHU LIPA #### [facility] [address] [place] [address] Dr. Judah Peñaloza Chloride [Moles/Vol] 103 mmol/L Normal 98-107 [facility] Comment on above: Performed By: #### C AARON ZHU LIPA #### [facility] [address] [place] [address] Dr. Judah Peñaloza CO2 [Moles/Vol] 27.8 mmol/L Normal 21.0-32.0 [facility] Comment on above: Performed By: #### C AARON ZHU LIPA #### [facility] [address] [address] [address] Judah Peñaloza Creatinine [Mass/Vol] 1.00 mg/dL Normal 0.55-1.02 [facility] Comment on above: Performed By: #### C AARON ZHU LIPA #### [facility] [address] [address] [address] Judah Peñaloza EGFR-AF [place] >60 Normal >=60 [facility] Comment on above: Performed By: #### C AARON ZHU LIPA #### [facility] [address] [place] [address] Dr. Judah Peñaloza EGFR-NON AF [place] 59 mL/min/1.73m2 Critically low >=60 [facility] Comment on above: Performed By: #### C AARON ZHU LIPA #### [facility] [address] [address] [address] Judah Peñaloza Glucose [Mass/Vol] 80 mg/dL Normal 74-106 [facility] Comment on above: Performed By: #### C AARON ZHU LIPA #### [facility] [address] [address] [address] Judah Peñaloza Potassium [Moles/Vol] 4.2 mmol/L Normal 3.5-5.1 [facility] Comment on above: Performed By: #### C AARON ZHU LIPA #### [facility] [address] [address] [address] Judah Peñaloza Sodium [Moles/Vol] 142 mmol/L Normal 136-145 [facility] Comment on above: Performed By: #### C AARON ZHU LIPA #### [facility] [address] [address] [address] Judah Peñaloza Urea nitrogen [Mass/Vol] 14.0 mg/dL Normal 7.0-18.0 [facility] Comment on above: Performed By: #### C AARON ZHU, LIPA #### [facility] [address] [address] [address] Judah Peñaloza Urea nitrogen/Creatinine [Mass ratio] 14.0 mg/mg Normal [facility] Comment on above: Performed By: #### C MP AARON, LIPA #### [facility] [address] [address] [address] Judah Peñaloza PAP ACOG PANEL 2: 30 to 65on 08-22-2021 . . Normal [facility] Comment on above: Result Comment: Perf ormed at: WB Performed By: #### C BC #### [facility] [address] [address] [address] Judah Peñaloza Age Gdln ACOG Testing 30-65 [facility] Comment on above: Performed By: #### C BC #### [facility] [address] [place] [address] Dr. Judah Peñaloza DIAGNOSIS: Comment Normal [facility] Comment on above: Result Comment: NEGA TIVE FOR INTRAEPITHELIAL LESION OR MALIGNANCY. Performed at: WB Performed By: #### C BC #### [facility] [address] [address] [address] Judah Peñaloza HPV Aptima Negative Normal Negative [facility] Comment on above: Result Comment: This nucleic acid amplification test detects fourteen high-risk HPV types (16,18,31,33,35,39,45,51,52,56,58,59,66,68) without differentiation. Performed at: =G Performed By: #### C BC #### [facility] [address] [address] [address] Judah Peñaloza Methodology: Comment [facility] Comment on above: Result Comment: This liquid based ThinPrep(R) pap test was screened with the use of an image guided system. Performed at: WB Performed By: #### C BC #### [facility] [address] [address] [address] Judah Peñaloza Note: Comment Normal [facility] Comment on above: Result Comment: The Pap smear is a screening test designed to aid in the detection of premalignant and malignant conditions of the uterine cervix. It is not a diagnostic procedure and should not be used as the sole means of detecting cervical cancer. Both false-positive and false-negative reports do occur. . Performed at: WB Performed By: #### C BC #### [facility] [address] [place] [address] Dr. Judah Peñaloza Performed by: Comment Normal [facility] Comment on above: Result Comment: Shaggy Schulz, Disc Sander (ASCP) Performed at: WB Performed By: #### C BC #### [facility] [address] [place] [address] Dr. Judah Peñaloza Specimen adequacy: Comment Normal [facility] Comment on above: Result Comment: Sati sfactory for evaluation. No endocervical component is identified. Performed at: WB Performed By: #### C BC #### [facility] [address] [place] [address] Dr. Judah Peñaloza BD DXA - AXIAL SKELETONon BD DXA - AXIAL SKELETON * * *Final Repor t* * * DATE OF EXAM: Aug 12 2021 11:38AM [facility] 0804 - BD DXA - AXIAL SKELETON / PROCEDURE REASON: multiple diagnoses * * * * Physician Interpretation * * * * EXAMINATION: DXA BONE DENSITOMETRY BD DXA - AXIAL SKELETON PATIENT DEMOGRAPHICS: Age: 50 years, Race: , Gender: Female SCANNER INFORMATION: DXA Model: [facility] Alicia - [employer] Horizon W [id number] Site Scanned: Lumbar spine and left hip Date Scanned: 08/12/2021 11:38 AM CLINICAL HISTORY: DIAGNOSTIC Atherosclerosis Bilateral carotid artery stenosis Hiatal hernia Renal artery stenosis (HCC). RISK FACTORS FOR OSTEOPOROSIS AND ASSOCIATED FRACTURES REPORTED BY THIS PATIENT: Postmenopausal CURRENT THERAPY: Vitamin D TECHNICAL LIMITATIONS: Degenerative disease of the spine RESULTS: Lumbar spine (L1-L4): 0.931 g/cm2, T-score -1.1, Z-score -0.4 Left Femoral Neck: 0.697 g/cm2, T-score -1.4, Z-score 0.7 Left Total Hip: 0.821 g/cm2, T-score -1.0, Z-score -0.6 VERTEBRAL FRACTURE ASSESSMENT Not performed. IMPRESSION: THE LOWEST T-SCORE IS -1.4 IN THE LEFT HIP 1) DIAGNOSIS (based on BMD alone): OSTEOPENIA Caution: Medical conditions other than osteoporosis may cause low bone density, such as osteomalacia or renal osteodystrophy. Clinical correlation is necessary. 2) FRACTURE RISK (based on FRAX): 10-year absolute fracture risk: - major osteoporotic fracture = 3.8 % - hip fracture = 0.3 % - A 10 year probability of hip fracture greater than or equal to 3% or a 10 year probability of any major osteoporosis-related fracture greater than or equal to 20% should be considered for treatment. - DXA scanner generated FRAX calculations may slighty differ from online FRAX calculations due to differences in software versions. - All recommendations and calculations are to be considered as guidelines and should not replace sound clinical judgement - Caution: Fracture risk may be increased independent of BMD in patients with corticosteroid use, age greater than 65 years, or a history of prior fragility fracture. RECOMMENDATIONS: All patients should receive the recommended daily allowance of calcium and vitamin D, as clinically indicated. Weight bearing exercises and strength training should be considered. Cessation of smoking and moderation of intake of alcohol, caffeine and carbonated beverages are recommended. NOF treatment recommendations (2008) Postmenopausal women and men age 50 and older presenting with the following should be treated: A hip or vertebral (clinical or morphometric) fracture T-score less than or equal to -2.5 at the femoral neck, total hip or spine after appropriate evaluation to exclude secondary causes Follow-up in 2 years or as clinically indicated. Patients that are taking corticosteroids, are transplant recipients or have hyperparathyroidism should have annual follow-up. Follow-up scans should always be done on the same machine for accurate comparison. FOR MORE INFORMATION: [facility]: www.ccf.org/arthritis/ osteo National Osteoporosis Foundation: www.nof.org International Society of Clinical Densitometry www.iscd.org Skin Former: [id number] Transcribe Date/Time: Aug 12 2021 11:39A Dictated by : GURPREET TUCKER MD This examination was interpreted and the report reviewed and electronically signed by: GURPREET TUCKER MD on Aug 12 2021 12:33PM EST [id number] -[id number] Normal [facility] DXA-AXIAL SKELETONon 04-08-2 022 LOWEST T-SCORE -1.4 [facility] No Panel Informationon 05-02 [facility] CTA ABDOMEN W IVCONon 2020 [facility] HISTORY PHYSICALon 0 HISTORY PHYSICAL HNO ID: [id number] Author: Mau Morales Service: Neurosurgery Author Type: Resident Type: HANDP Filed: 03/03/2020 12:48 PM Note Text: UPDATED PROCEDURAL SEDATION HISTORY AND PHYSICAL EXAMINATION SERVICE DATE: 03/03/2020 SERVICE TIME: 12:48 PM PHYSICAL EXAM MUST BE COMPLETED ON ADMISSION The History and Physical (completed in the past 30 days) has been reviewed and the patient has been examined. The contents accurately reflect the patient's condition with the following additions or revisions since the HANDP was completed. ASA Class: ASA Class:: Patient with mild systemic disease Examination indicates no changes. AIRWAY: Airway Visualization of Uvula: Yes Mouth opening greater than 2 fingerbreadths: Yes Neck Full Range of Motion: Yes LUNGS: Lungs clear to auscultation, Good diaphragmatic excursion CARDIAC: Normal S1 and S2; no rubs, murmurs, or gallops Provisional Diagnosis/Treatment Plan: Carotid stenosis --> cerebral angiogram SEDATION GOAL: Moderate This HANDP can be found in the Electronic Medical Record dated 02/10/2020. SIGNATURE: Mau Morales MD PATIENT NAME: Regla Prajapati DATE: March 03, 2020 TIME: 12:48 PM PAGER: [facility] IR REBECCA CCA H/N BILAT W/WO AR Elliott 03-03-2020 IR REBECCA CCA H/N BILAT W/WO ARCH * * *Final Report* * * DATE OF EXAM: Mar 03 2020 2:08PM [facility] [id number] - IR REBECCA CCA H/N BILAT W/WO ARCH / PROCEDURE REASON: NUMBNESS * * * * Physician Interpretation * * * * Diagnostic Cerebral Angiogram Report CLINICAL HISTORY: This patient is a 49-year-old with a history of right common carotid artery origin stenosis who presents with presyncope. A diagnostic cerebral angiogram was requested to evaluate the cerebral vasculature. PROCEDURE: Diagnostic cerebral angiogram. TIME OUT TIME: 1:23 PM PROCEDURE START TIME: 1:23 PM PROCEDURE END TIME: 2:09 PM ATTENDING: Olive Catherine MD CLINICAL MOLECULAR GENETICIST (FELLOW): Mau Morales MD The procedure was performed by the attending, with an optometric assistant. The attending performed the following procedural activities: Diagnostic cerebral angiogram. ANGIOGRAPHY MATERIALS: Diagnostic catheter: 5 Ukrainian Vert Catheter Guidewire: 0.035 inch angled tapered Glidewire. Fluoroscopic Radiation Summary: Plane A, Air Kerma: 273.4 mGy Plane B, Air Kerma: 109.2 mGy Dose Area Product (DAP): 46552.0 mGy*cm2 Fluoro time: 11:30 min:sec Contrast (arterial): 120 ml of OMNIPAQUE 300 ANESTHESIA: Conscious sedation with fentanyl and Versed were administered by IV with continuous monitoring by a dedicated nurse. Pulsed oximetry, cardiopulmonary monitoring and electrocardiography was performed throughout the procedure. Intra-service time (monitoring for moderate sedation) (starts with administration of agent, ends when continuous [id number] time ends): 45 minutes. Patient monitoring: I personally supervised and directed an independent trained observer who assisted in monitoring the patient?s level of consciousness and physiological status throughout the procedure. TECHNIQUE: After lisette discussion of the risks and benefits of diagnostic cerebral angiography, informed consent was obtained. The patient was brought to the angiography suite and placed in supine position. After hemodynamic monitoring was established, conscious sedation was administered by our nursing staff. The right groin was prepped and draped in the usual standard fashion, 1% lidocaine was used for local anesthetic. After fluoroscopic localization of the right femoral head, vascular access was obtained in the right common femoral artery utilizing a 4 Ukrainian micropuncture set. A 5 Ukrainian sheath was inserted and connected to heparinized saline flush. A 5F pigtail catheter was advanced over a PTFE wire to the ascending aorta and the wire removed. Using a power injection and views over the chest, angiographic imaging of the aortic arch was performed. A standard diagnostic catheter and wire were then fluoroscopically advanced for selective catheterization of the following vessels: Brachiocephalic vascular family: Right common carotid artery, cervical views. Right common carotid artery, intracranial views. Standard AP, lateral and oblique views. Right subclavian artery, chest and cervical views. Right vertebral artery, intracranial views. Standard AP, lateral and Jm's views. Left carotid vascular family: Left common carotid artery, cervical views. Left common carotid artery, intracranial views. Standard AP, lateral and oblique views. Left subclavian vascular family: Left subclavian artery, chest and cervical views. Left subclavian artery, intracranial views. Standard AP, lateral and oblique views. Angiographic imaging was performed at each selected vessel with views as described above. After no further views and images were determined to be necessary, the procedure was terminated. All catheters and wires were removed from the patient. Hemostasis at the right groin was obtained by Exoseal. The patient was transferred to recovery in stable condition without immediate complication. FINDINGS: AORTIC ARCH: DSA images of the aortic arch demonstrate class II arch with an aberrant right subclavian artery origin. There is a previously placed stent within the right common carotid artery origin, and there is moderate stenosis within the stent without significant flow delay, measuring 70% by NASCET method (MLD - 1.4mm, Distal vessel - 5.2mm). There is moderate stenosis at the left common carotid artery origin without flow delay (MLD - 2.3mm, Distal vessel - 5.4mm). The left subclavian artery origin is normal. RIGHT COMMON CAROTID ARTERY INJECTION (chest/cervical): DSA images of the right anterior cervical circulation demonstrate moderate in-stent stenosis at the right common carotid artery origin, without flow delay. The rest of the common carotid artery is normal. The bifurcation is at C3. There is no significant atherosclerosis at the bifurcation by NASCET criteria. The cervical ICA has normal course and caliber. The proximal ECA and its branches demonstrate a normal course and caliber. There is no evidence of dissection or arteriovenous shunting. RIGHT COMMON CAROTID ARTERY INJECTION (cranial): DSA images of the right anterior intracranial circulation demonstrate normal course and caliber of the petrous, cavernous and supraclinoid segments of the internal carotid artery. The ophthalmic artery origin, course and caliber are normal. There is a moderate sized posterior communicating artery that contributes to the posterior circulation. The anterior choroidal artery is normal. M1 and A1 segments are normal. MCA and ONEL distributions are normal. There is no filling across the anterior communicating artery to the contralateral ONEL. Capillary and venous phases are normal. No aneurysm or arteriovenous shunting is identified. The terminal branches of the external carotid artery are normal in course and caliber. LEFT COMMON CAROTID ARTERY INJECTION (chest/cervical): DSA images of the left anterior cervical circulation demonstrate moderate stenosis at the left common carotid artery origin without flow delay. The rest of the CCA has normal course and caliber. The bifurcation is at C4. The cervical ICA has normal course and caliber. There is severe stenosis at the external carotid artery origin with flow delay. There is no evidence of dissection or arteriovenous shunting. LEFT COMMON CAROTID ARTERY INJECTION (cranial): DSA images of the left anterior intracranial circulation demonstrate normal course and caliber of the petrous, cavernous and supraclinoid segments of the internal carotid artery. 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 The ophthalmic artery origin, course and caliber are normal. There is a -type posterior communicating artery. The anterior choroidal artery is normal. M1 and A1 segments are normal. MCA and ONEL distributions are normal. There is transient filling across the anterior communicating artery to the contralateral ONEL. Capillary and venous phases are normal. No aneurysm or arteriovenous shunting is identified. The terminal branches of the external carotid artery are normal in course and caliber. RIGHT SUBCLAVIAN ARTERY: DSA demonstrates normal course and caliber of the right subclavian artery. The right vertebral artery origin and cervical segments are normal. The remaining proximal branches of the subclavian artery are normal. RIGHT VERTEBRAL ARTERY INJECTION: DSA images of the posterior intracranial circulation demonstrate normal course and caliber of the distal right vertebral artery. The vertebrobasilar confluence is normal. There is transient reflux of contrast down the left vertebral artery. The basilar segment and apex are normal. The right posterior-inferior cerebellar artery is normal. Bilateral anterior-inferior cerebellar arteries are normal. Bilateral superior cerebellar arteries are normal. The right MOLD PRESS OPERATOR is normal, and the left MOLD PRESS OPERATOR is not opacified due to the -type configuration. The capillary and venous phases are normal. No aneurysm or arteriovenous shunting is identified. LEFT SUBCLAVIAN ARTERY (chest/cervical): DSA demonstrates normal course and caliber of the left subclavian artery. The left vertebral artery has mild stenosis at its origin and is otherwise normal. There is collateral flow to the ECA branches via the occipital artery. LEFT SUBCLAVIAN ARTERY INJECTION (cranial): DSA images of the posterior intracranial circulation demonstrate normal course and caliber of the distal left vertebral artery. The vertebrobasilar confluence is normal. There is no reflux of contrast down the right vertebral artery. The basilar segment and apex are normal. The left posterior-inferior cerebellar artery is normal. Bilateral superior cerebellar arteries are normal. The right MOLD PRESS OPERATOR is normal, and the left MOLD PRESS OPERATOR is not opacified due to the -type configuration. The capillary and venous phases are normal. No aneurysm or arteriovenous shunting is identified. Complications: None IMPRESSION: Moderate right common carotid artery origin stenosis within the previously placed stent, measuring 70% by NASCET method. Moderate left common carotid artery origin stenosis, measuring 60% by NASCET method. Severe left external carotid artery origin stenosis with flow delay. Aberrant right subclavian artery origin. Mild left vertebral artery origin stenosis. Left MOLD PRESS OPERATOR and left persistent trigeminal artery, a hypoplastic posterior circulation. Skin Former: [facility] Transcribe Date/Time: Mar 03 2020 2:26P Dictated by : MAU MORALES MD This examination was interpreted and the report reviewed and electronically signed by: OLIVE CATHERINE MD on Mar 04 2020 10:26AM EST [id number] [facility] IR-UNI SELECT VERT W/WO ARCH on 03-03-2020 IR-UNI SELECT VERT W/WO ARCH * * *Final Report* * * DATE OF EXAM: Mar 03 2020 2:08PM [facility] [id number] - IR-UNI SELECT VERT W/WO ARCH - RIGHT / PROCEDURE REASON: NUMBNESS * * * * Physician Interpretation * * * * Diagnostic Cerebral Angiogram Report CLINICAL HISTORY: This patient is a 49-year-old with a history of right common carotid artery origin stenosis who presents with presyncope. A diagnostic cerebral angiogram was requested to evaluate the cerebral vasculature. PROCEDURE: Diagnostic cerebral angiogram. TIME OUT TIME: 1:23 PM PROCEDURE START TIME: 1:23 PM PROCEDURE END TIME: 2:09 PM ATTENDING: Olive Catherine MD CLINICAL MOLECULAR GENETICIST (FELLOW): Mau Morales MD The procedure was performed by the attending, with an optometric assistant. The attending performed the following procedural activities: Diagnostic cerebral angiogram. ANGIOGRAPHY MATERIALS: Diagnostic catheter: 5 Ukrainian Vert Catheter Guidewire: 0.035 inch angled tapered Glidewire. Fluoroscopic Radiation Summary: Plane A, Air Kerma: 273.4 mGy Plane B, Air Kerma: 109.2 mGy Dose Area Product (DAP): 23280.0 mGy*cm2 Fluoro time: 11:30 min:sec Contrast (arterial): 120 ml of OMNIPAQUE 300 ANESTHESIA: Conscious sedation with fentanyl and Versed were administered by IV with continuous monitoring by a dedicated nurse. Pulsed oximetry, cardiopulmonary monitoring and electrocardiography was performed throughout the procedure. Intra-service time (monitoring for moderate sedation) (starts with administration of agent, ends when continuous [id number] time ends): 45 minutes. Patient monitoring: I personally supervised and directed an independent trained observer who assisted in monitoring the patient?s level of consciousness and physiological status throughout the procedure. TECHNIQUE: After lisette discussion of the risks and benefits of diagnostic cerebral angiography, informed consent was obtained. The patient was brought to the angiography suite and placed in supine position. After hemodynamic monitoring was established, conscious sedation was administered by our nursing staff. The right groin was prepped and draped in the usual standard fashion, 1% lidocaine was used for local anesthetic. After fluoroscopic localization of the right femoral head, vascular access was obtained in the right common femoral artery utilizing a 4 Ukrainian micropuncture set. A 5 Ukrainian sheath was inserted and connected to heparinized saline flush. A 5F pigtail catheter was advanced over a PTFE wire to the ascending aorta and the wire removed. Using a power injection and views over the chest, angiographic imaging of the aortic arch was performed. A standard diagnostic catheter and wire were then fluoroscopically advanced for selective catheterization of the following vessels: Brachiocephalic vascular family: Right common carotid artery, cervical views. Right common carotid artery, intracranial views. Standard AP, lateral and oblique views. Right subclavian artery, chest and cervical views. Right vertebral artery, intracranial views. Standard AP, lateral and Jm's views. Left carotid vascular family: Left common carotid artery, cervical views. Left common carotid artery, intracranial views. Standard AP, lateral and oblique views. Left subclavian vascular family: Left subclavian artery, chest and cervical views. Left subclavian artery, intracranial views. Standard AP, lateral and oblique views. Angiographic imaging was performed at each selected vessel with views as described above. After no further views and images were determined to be necessary, the procedure was terminated. All catheters and wires were removed from the patient. Hemostasis at the right groin was obtained by Exoseal. The patient was transferred to recovery in stable condition without immediate complication. FINDINGS: AORTIC ARCH: DSA images of the aortic arch demonstrate class II arch with an aberrant right subclavian artery origin. There is a previously placed stent within the right common carotid artery origin, and there is moderate stenosis within the stent without significant flow delay, measuring 70% by NASCET method (MLD - 1.4mm, Distal vessel - 5.2mm). There is moderate stenosis at the left common carotid artery origin without flow delay (MLD - 2.3mm, Distal vessel - 5.4mm). The left subclavian artery origin is normal. RIGHT COMMON CAROTID ARTERY INJECTION (chest/cervical): DSA images of the right anterior cervical circulation demonstrate moderate in-stent stenosis at the right common carotid artery origin, without flow delay. The rest of the common carotid artery is normal. The bifurcation is at C3. There is no significant atherosclerosis at the bifurcation by NASCET criteria. The cervical ICA has normal course and caliber. The proximal ECA and its branches demonstrate a normal course and caliber. There is no evidence of dissection or arteriovenous shunting. RIGHT COMMON CAROTID ARTERY INJECTION (cranial): DSA images of the right anterior intracranial circulation demonstrate normal course and caliber of the petrous, cavernous and supraclinoid segments of the internal carotid artery. The ophthalmic artery origin, course and caliber are normal. There is a moderate sized posterior communicating artery that contributes to the posterior circulation. The anterior choroidal artery is normal. M1 and A1 segments are normal. MCA and ONEL distributions are normal. There is no filling across the anterior communicating artery to the contralateral ONEL. Capillary and venous phases are normal. No aneurysm or arteriovenous shunting is identified. The terminal branches of the external carotid artery are normal in course and caliber. LEFT COMMON CAROTID ARTERY INJECTION (chest/cervical): DSA images of the left anterior cervical circulation demonstrate moderate stenosis at the left common carotid artery origin without flow delay. The rest of the CCA has normal course and caliber. The bifurcation is at C4. The cervical ICA has normal course and caliber. There is severe stenosis at the external carotid artery origin with flow delay. There is no evidence of dissection or arteriovenous shunting. LEFT COMMON CAROTID ARTERY INJECTION (cranial): DSA images of the left anterior intracranial circulation demonstrate normal course and caliber of the petrous, cavernous and supraclinoid segments of the internal carotid artery. 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 The ophthalmic artery origin, course and caliber are normal. There is a -type posterior communicating artery. The anterior choroidal artery is normal. M1 and A1 segments are normal. MCA and ONEL distributions are normal. There is transient filling across the anterior communicating artery to the contralateral ONEL. Capillary and venous phases are normal. No aneurysm or arteriovenous shunting is identified. The terminal branches of the external carotid artery are normal in course and caliber. RIGHT SUBCLAVIAN ARTERY: DSA demonstrates normal course and caliber of the right subclavian artery. The right vertebral artery origin and cervical segments are normal. The remaining proximal branches of the subclavian artery are normal. RIGHT VERTEBRAL ARTERY INJECTION: DSA images of the posterior intracranial circulation demonstrate normal course and caliber of the distal right vertebral artery. The vertebrobasilar confluence is normal. There is transient reflux of contrast down the left vertebral artery. The basilar segment and apex are normal. The right posterior-inferior cerebellar artery is normal. Bilateral anterior-inferior cerebellar arteries are normal. Bilateral superior cerebellar arteries are normal. The right MOLD PRESS OPERATOR is normal, and the left MOLD PRESS OPERATOR is not opacified due to the -type configuration. The capillary and venous phases are normal. No aneurysm or arteriovenous shunting is identified. LEFT SUBCLAVIAN ARTERY (chest/cervical): DSA demonstrates normal course and caliber of the left subclavian artery. The left vertebral artery has mild stenosis at its origin and is otherwise normal. There is collateral flow to the ECA branches via the occipital artery. LEFT SUBCLAVIAN ARTERY INJECTION (cranial): DSA images of the posterior intracranial circulation demonstrate normal course and caliber of the distal left vertebral artery. The vertebrobasilar confluence is normal. There is no reflux of contrast down the right vertebral artery. The basilar segment and apex are normal. The left posterior-inferior cerebellar artery is normal. Bilateral superior cerebellar arteries are normal. The right MOLD PRESS OPERATOR is normal, and the left MOLD PRESS OPERATOR is not opacified due to the -type configuration. The capillary and venous phases are normal. No aneurysm or arteriovenous shunting is identified. Complications: None IMPRESSION: Moderate right common carotid artery origin stenosis within the previously placed stent, measuring 70% by NASCET method. Moderate left common carotid artery origin stenosis, measuring 60% by NASCET method. Severe left external carotid artery origin stenosis with flow delay. Aberrant right subclavian artery origin. Mild left vertebral artery origin stenosis. Left MOLD PRESS OPERATOR and left persistent trigeminal artery, a hypoplastic posterior circulation. Skin Former: [facility] Transcribe Date/Time: Mar 03 2020 2:26P Dictated by : MAU MORALES MD This examination was interpreted and the report reviewed and electronically signed by: OLIVE CATHERINE MD on Mar 04 2020 10:26AM EST [id number] [facility] IR-UNI VERT-SC/INOM INJECTon 03-03-2020 IR-UNI VERT-SC/INOM INJECT * * *Final Report* * * DATE OF EXAM: Mar 03 2020 2:08PM [id number] - IR-UNI VERT-SC/INOM INJECT - LEFT / PROCEDURE REASON: NUMBNESS * * * * Physician Interpretation * * * * Diagnostic Cerebral Angiogram Report CLINICAL HISTORY: This patient is a 49-year-old with a history of right common carotid artery origin stenosis who presents with presyncope. A diagnostic cerebral angiogram was requested to evaluate the cerebral vasculature. PROCEDURE: Diagnostic cerebral angiogram. TIME OUT TIME: 1:23 PM PROCEDURE START TIME: 1:23 PM PROCEDURE END TIME: 2:09 PM ATTENDING: Olive Catherine MD CLINICAL MOLECULAR GENETICIST (FELLOW): Mau Morales MD The procedure was performed by the attending, with an optometric assistant. The attending performed the following procedural activities: Diagnostic cerebral angiogram. ANGIOGRAPHY MATERIALS: Diagnostic catheter: 5 Ukrainian Vert Catheter Guidewire: 0.035 inch angled tapered Glidewire. Fluoroscopic Radiation Summary: Plane A, Air Kerma: 273.4 mGy Plane B, Air Kerma: 109.2 mGy Dose Area Product (DAP): 52926.0 mGy*cm2 Fluoro time: 11:30 min:sec Contrast (arterial): 120 ml of OMNIPAQUE 300 ANESTHESIA: Conscious sedation with fentanyl and Versed were administered by IV with continuous monitoring by a dedicated nurse. Pulsed oximetry, cardiopulmonary monitoring and electrocardiography was performed throughout the procedure. Intra-service time (monitoring for moderate sedation) (starts with administration of agent, ends when continuous [id number] time ends): 45 minutes. Patient monitoring: I personally supervised and directed an independent trained observer who assisted in monitoring the patient?s level of consciousness and physiological status throughout the procedure. TECHNIQUE: After lisette discussion of the risks and benefits of diagnostic cerebral angiography, informed consent was obtained. The patient was brought to the angiography suite and placed in supine position. After hemodynamic monitoring was established, conscious sedation was administered by our nursing staff. The right groin was prepped and draped in the usual standard fashion, 1% lidocaine was used for local anesthetic. After fluoroscopic localization of the right femoral head, vascular access was obtained in the right common femoral artery utilizing a 4 Ukrainian micropuncture set. A 5 Ukrainian sheath was inserted and connected to heparinized saline flush. A 5F pigtail catheter was advanced over a PTFE wire to the ascending aorta and the wire removed. Using a power injection and views over the chest, angiographic imaging of the aortic arch was performed. A standard diagnostic catheter and wire were then fluoroscopically advanced for selective catheterization of the following vessels: Brachiocephalic vascular family: Right common carotid artery, cervical views. Right common carotid artery, intracranial views. Standard AP, lateral and oblique views. Right subclavian artery, chest and cervical views. Right vertebral artery, intracranial views. Standard AP, lateral and Jm's views. Left carotid vascular family: Left common carotid artery, cervical views. Left common carotid artery, intracranial views. Standard AP, lateral and oblique views. Left subclavian vascular family: Left subclavian artery, chest and cervical views. Left subclavian artery, intracranial views. Standard AP, lateral and oblique views. Angiographic imaging was performed at each selected vessel with views as described above. After no further views and images were determined to be necessary, the procedure was terminated. All catheters and wires were removed from the patient. Hemostasis at the right groin was obtained by Exoseal. The patient was transferred to recovery in stable condition without immediate complication. FINDINGS: AORTIC ARCH: DSA images of the aortic arch demonstrate class II arch with an aberrant right subclavian artery origin. There is a previously placed stent within the right common carotid artery origin, and there is moderate stenosis within the stent without significant flow delay, measuring 70% by NASCET method (MLD - 1.4mm, Distal vessel - 5.2mm). There is moderate stenosis at the left common carotid artery origin without flow delay (MLD - 2.3mm, Distal vessel - 5.4mm). The left subclavian artery origin is normal. RIGHT COMMON CAROTID ARTERY INJECTION (chest/cervical): DSA images of the right anterior cervical circulation demonstrate moderate in-stent stenosis at the right common carotid artery origin, without flow delay. The rest of the common carotid artery is normal. The bifurcation is at C3. There is no significant atherosclerosis at the bifurcation by NASCET criteria. The cervical ICA has normal course and caliber. The proximal ECA and its branches demonstrate a normal course and caliber. There is no evidence of dissection or arteriovenous shunting. RIGHT COMMON CAROTID ARTERY INJECTION (cranial): DSA images of the right anterior intracranial circulation demonstrate normal course and caliber of the petrous, cavernous and supraclinoid segments of the internal carotid artery. The ophthalmic artery origin, course and caliber are normal. There is a moderate sized posterior communicating artery that contributes to the posterior circulation. The anterior choroidal artery is normal. M1 and A1 segments are normal. MCA and ONEL distributions are normal. There is no filling across the anterior communicating artery to the contralateral ONEL. Capillary and venous phases are normal. No aneurysm or arteriovenous shunting is identified. The terminal branches of the external carotid artery are normal in course and caliber. LEFT COMMON CAROTID ARTERY INJECTION (chest/cervical): DSA images of the left anterior cervical circulation demonstrate moderate stenosis at the left common carotid artery origin without flow delay. The rest of the CCA has normal course and caliber. The bifurcation is at C4. The cervical ICA has normal course and caliber. There is severe stenosis at the external carotid artery origin with flow delay. There is no evidence of dissection or arteriovenous shunting. LEFT COMMON CAROTID ARTERY INJECTION (cranial): DSA images of the left anterior intracranial circulation demonstrate normal course and caliber of the petrous, cavernous and supraclinoid segments of the internal carotid artery. 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 The ophthalmic artery origin, course and caliber are normal. There is a -type posterior communicating artery. The anterior choroidal artery is normal. M1 and A1 segments are normal. MCA and ONEL distributions are normal. There is transient filling across the anterior communicating artery to the contralateral ONEL. Capillary and venous phases are normal. No aneurysm or arteriovenous shunting is identified. The terminal branches of the external carotid artery are normal in course and caliber. RIGHT SUBCLAVIAN ARTERY: DSA demonstrates normal course and caliber of the right subclavian artery. The right vertebral artery origin and cervical segments are normal. The remaining proximal branches of the subclavian artery are normal. RIGHT VERTEBRAL ARTERY INJECTION: DSA images of the posterior intracranial circulation demonstrate normal course and caliber of the distal right vertebral artery. The vertebrobasilar confluence is normal. There is transient reflux of contrast down the left vertebral artery. The basilar segment and apex are normal. The right posterior-inferior cerebellar artery is normal. Bilateral anterior-inferior cerebellar arteries are normal. Bilateral superior cerebellar arteries are normal. The right MOLD PRESS OPERATOR is normal, and the left MOLD PRESS OPERATOR is not opacified due to the -type configuration. The capillary and venous phases are normal. No aneurysm or arteriovenous shunting is identified. LEFT SUBCLAVIAN ARTERY (chest/cervical): DSA demonstrates normal course and caliber of the left subclavian artery. The left vertebral artery has mild stenosis at its origin and is otherwise normal. There is collateral flow to the ECA branches via the occipital artery. LEFT SUBCLAVIAN ARTERY INJECTION (cranial): DSA images of the posterior intracranial circulation demonstrate normal course and caliber of the distal left vertebral artery. The vertebrobasilar confluence is normal. There is no reflux of contrast down the right vertebral artery. The basilar segment and apex are normal. The left posterior-inferior cerebellar artery is normal. Bilateral superior cerebellar arteries are normal. The right MOLD PRESS OPERATOR is normal, and the left MOLD PRESS OPERATOR is not opacified due to the -type configuration. The capillary and venous phases are normal. No aneurysm or arteriovenous shunting is identified. Complications: None IMPRESSION: Moderate right common carotid artery origin stenosis within the previously placed stent, measuring 70% by NASCET method. Moderate left common carotid artery origin stenosis, measuring 60% by NASCET method. Severe left external carotid artery origin stenosis with flow delay. Aberrant right subclavian artery origin. Mild left vertebral artery origin stenosis. Left MOLD PRESS OPERATOR and left persistent trigeminal artery, a hypoplastic posterior circulation. Skin Former: PSCB Transcribe Date/Time: Mar 03 2020 2:26P Dictated by : MAU MORALES MD This examination was interpreted and the report reviewed and electronically signed by: OLIVE CATHERINE MD on Mar 04 2020 10:26AM EST [id number] Normal [facility] NURSING PROGon 03-03-2020 NURSING PROG HNO ID: [id number] Author: Antonio (Rn) RAMONA Hernandez Service: Nursing Author Type: Registered Nurse Type: Nursing Progress Note Filed: 03/03/2020 5:14 PM Note Text: PATIENT EDUCATION TOPIC: PROCEDURE / SURGERY: Post Procedure Teaching: Med Administration and Wound Care PATIENT NAME: Regla Prajapati PATIENT LOCATION: INTERVENTIONAL RADIOL* READINESS TO LEARN COGNITIVE ABILITY: Alert and oriented MOTIVATION TO LEARN: Eager FAMILY SUPPORT: None - Unavailable/disinteres flo INSTRUCTION PROVIDED TO: Patient PATIENT LEARNS BEST BY: Individual Instruction FACTORS AFFECTING LEARNING: None PHYSICAL LIMITATIONS AFFECTING LEARNING: None LEARNING RESPONSE DIAGNOSIS: ADULT: Well Adult PATIENT/FAMILY RESPONSE: Verbalizes understanding of: POST-PROCEDURE INSTRUCTIONS-Correct actions to take to reduce post procedure complications METHOD OF INSTRUCTION: Individual instruction Written instruction - handouts Verbal instruction Demonstration-Hands on Learning FOLLOW-UP PLAN: Complete - No need for follow-up INSTRUCTIONAL AIDS USED: NA SUPPLEMENTAL MATERIAL PROVIDED TO PATIENT: None REFERRAL (RECOMMENDATION): None Electronically Signed By: Antonio Hernandez RN [facility] PT EDon 03-03-2020 PT ED HNO ID: [id number] Author: Gordo BrinkRnRadha Elaine RN Service: Radiology Author Type: Registered Nurse Type: Patient Education Filed: 03/03/2020 1:04 PM Note Text: PATIENT EDUCATION TOPIC: PROCEDURE / SURGERY: Procedure/Surgery: Cerebral Angiogram PATIENT NAME: Regla Prajapati PATIENT LOCATION: INTERVENTIONAL RADIOL* READINESS TO LEARN COGNITIVE ABILITY: Alert and oriented MOTIVATION TO LEARN: Interested FAMILY SUPPORT: None - Unavailable/disinteres flo INSTRUCTION PROVIDED TO: Patient PATIENT LEARNS BEST BY: Individual Instruction Verbal Instruction FACTORS AFFECTING LEARNING: None PHYSICAL LIMITATIONS AFFECTING LEARNING: None LEARNING RESPONSE DIAGNOSIS: ADULT: Cerebral Angiogram PATIENT/FAMILY RESPONSE: Verbalizes understanding of: POST-PROCEDURE INSTRUCTIONS-Correct actions to take to reduce post procedure complications PRE-PROCEDURE INSTRUCTIONS-Correct action to take to follow pre-procedure instructions METHOD OF INSTRUCTION: Individual instruction Verbal instruction FOLLOW-UP PLAN: Patient instructed to call with any further issues INSTRUCTIONAL AIDS USED: NA SUPPLEMENTAL MATERIAL PROVIDED TO PATIENT: None REFERRAL (RECOMMENDATION): None Electronically Signed By: Gordo Elaine RN [facility] PT ED HNO ID: [id number] Author: William BrinkRnRadha Mccray RN Service: Radiology Author Type: Registered Nurse Type: Patient Education Filed: 03/03/2020 11:46 AM Note Text: PATIENT EDUCATION TOPIC: PROCEDURE / SURGERY: Procedure/Surgery: Angiography PATIENT NAME: Regla Prajapati PATIENT LOCATION: INTERVENTIONAL RADIOL* READINESS TO LEARN COGNITIVE ABILITY: Alert and oriented MOTIVATION TO LEARN: Interested FAMILY SUPPORT: High - Very involved in pt care INSTRUCTION PROVIDED TO: Patient and family member PATIENT LEARNS BEST BY: Individual Instruction Written Instruction - Hand-outs Verbal Instruction FACTORS AFFECTING LEARNING: None PHYSICAL LIMITATIONS AFFECTING LEARNING: None LEARNING RESPONSE DIAGNOSIS: ADULT: Angiography PATIENT/FAMILY RESPONSE: Verbalizes understanding of: POST-PROCEDURE INSTRUCTIONS-Correct actions to take to reduce post procedure complications PRE-PROCEDURE INSTRUCTIONS-Correct action to take to follow pre-procedure instructions METHOD OF INSTRUCTION: Individual instruction Written instruction - handouts Verbal instruction FOLLOW-UP PLAN: Patient instructed to call with any further issues Follow-up with Primary Care INSTRUCTIONAL AIDS USED: Handouts to be given to patient in post op. SUPPLEMENTAL MATERIAL PROVIDED TO PATIENT: Handouts to be given to patient in post op. REFERRAL (RECOMMENDATION): None Electronically Signed By: William Mccray RN [facility] 03-02-2020 CNPN Telephone (RGFV) REGLA PRAJAPATI ([id number]) 1970 F Date Time Provider Department 03/02/20 REUBEN MONROY (RT) [facility] During your visit today, we recorded the following information about you: Allergies As of Date: 03/02/2020 Noted Allergy Reaction AMLODIPINE 05/08/2019 7 - Swelling Comments: BLE swelling PENICILLINS 04/24/2002 Date Reviewed: 02/18/2020 Reviewed by: Umair (Rn) RAMONA Fitch - Fully Assessed Reason for Visit: Reminder Call [[id number]] Cmt: spoke to Rgela and gave pre-angiogram instructions for 03/03/2020. Prescriptions as of 03/02/2020 Sig: LINZESS 72 MCG CAPSULE Take 1 capsule by mouth once * LISINOPRIL 5 MG TABLET Take 1 tablet by mouth once d* EZETIMIBE 10 MG TABLET Take 1 tablet by mouth once d* TRINTELLIX 10 MG TABLET Take by mouth. taking 1 / t* PRAZOSIN 1 MG CAPSULE Take 2 mg by mouth daily at b* ATORVASTATIN 40 MG TABLET Take 1 tablet by mouth daily * CLOPIDOGREL 75 MG TABLET TAKE 1 TABLET BY MOUTH ONCE D* CLONAZEPAM 0.5 MG TABLET Take 0.5 mg by mouth twice da* ASPIRIN 81 MG TABLET,DELAYED * Take 81 mg by mouth once thomas* CHOLECALCIFEROL (VITAMIN D3) * Take 1 capsule by mouth once * PREMARIN 0.45 MG TABLET Take 0.45 mg by mouth once da* Problem List As Of Date 03/02/2020 Noted Resolved GOITER NOS [E04.9] 04/24/2002 OTHER MALAISE AND FATIGUE [R53.81, R53.83] 04/24/2002 PVD (peripheral vascular disease) (HCC) [I73.9] 03/19/2019 Essential hypertension [I10] 03/19/2019 Dyslipidemia [E78.5] 03/19/2019 Chest pain [R07.9] 03/19/2019 Dyspnea on exertion [R06.00] 03/19/2019 Bilateral carotid artery stenosis [I65.23] 04/17/2019 Bilateral arm weakness [R29.898] 04/17/2019 Atherosclerosis [I70.90] 04/17/2019 Renal artery stenosis (HCC) [I70.1] 05/08/2019 TIA (transient ischemic attack) [G45.9] 01/26/2020 01/27/2020 Hyperventilation [R06.4] 01/27/2020 Encounter Status:Closed by REUBEN MONROY on 03/02/20 [facility] HOSPon 02-18-2020 HOSP Patient:Victor Manuel Prajapati MRN: Height:5' 2 (1.575 m) Weight:150 lb (68.04 kg) Outpatient Medications as of 03/03/20: OMEPRAZOLE ORAL LINZESS 72 mcg capsule lisinopril (ZESTRIL, PRINIVIL) 5 mg tablet ezetimibe (ZETIA) 10 mg tablet vortioxetine (TRINTELLIX) 10 mg tab prazosin (MINIPRESS) 1 mg cap atorvastatin (LIPITOR) 40 mg tablet clopidogrel (PLAVIX) 75 mg tablet clonazePAM (KLONOPIN) 0.5 mg tablet aspirin, enteric coated (ASPIRIN, ENTERIC COATED) 81 mg EC tablet cholecalciferol (VITAMIN D) 1,000 unit tab tablet estrogens conjugated (PREMARIN) 0.45 mg tablet Admission/Clinic Administered Medications as of 03/03/20: Patient has no admission medications. Problem List: Goiter, unspecified [E04.9] Other malaise and fatigue [R53.81, R53.83] PVD (peripheral vascular disease) (HCC) [I73.9] Essential hypertension [I10] Dyslipidemia [E78.5] Chest pain [R07.9] Dyspnea on exertion [R06.00] Bilateral carotid artery stenosis [I65.23] Bilateral arm weakness [R29.898] Atherosclerosis [I70.90] Renal artery stenosis (HCC) [I70.1] Hyperventilation [R06.4] Allergies: Amlodipine Penicillins Date Verified: 03/03/20 Lab Values Lab Value Units Date High Low QUOC* 38.8 % 02/25/2020 46.0 36.0 Progress Notes (NEUS CEREBROVASC MAIN): Justnia Hernandez 02/17/2020 12:31 PM Signed CV PHONE Name of caller : Regla Relationship to patient : Self If not self Will need patient permission to release results or disclose health information with called documented in . Was permission obtained from patient ? Yes Patient identified by Name and Date of . ( Regla Prajapati, 1970). Yes Number to return call [phone] Reason for Call : Patient Question - patient called stating she is suppose to have an angiogram with Dr. Catherine on Mar 03 and she does not see it in her MyChart. Please call Regla at [phone] Thank you calling [facility] [place]. You will receive a return call within 48 hours ( or 2 business days if close to the weekend). If you feel that this is an urgent issue and needs immediate attention, it is recommended that you contact your primary care provider office or proceed to your nearest Urgent Care Center of Emergency Room ED for evaluation/treatment. Umair Fitch, RN, RN 02/18/2020 3:01 PM Signed Orders placed by angiogram pool at earlier date, surgical case request completed today. Sent to Zoey Crespo CUSTOMER SERVICE DISPATCHER to sign the orders so it may be scheduled for 03/03 as requested Progress Notes ([facility] CEREBROVASC MAIN): Elliott Salazar, 02/12/2020 3:16 PM Signed CEREBROVASCULAR CENTER Established nVirtual Visit Consultation [place]: [place] [id number] [facility] [id number] CEREBROVASCULAR HISTORY Regla Prajapati is a 49 year old female with extensive peripheral vascular disease and atheromatous aortic arch disease Reason for Visit: dizziness/ syncope History of Event: 49 y/o F with h/o HTN -- 5 - 6 y ( was non compliant in past) Obesity extensive smoker until Dec 2018 - peripheral arterial disease , extensive calcified atheromatous plaque in right common carotid artery origin status RCCA and SHANA post stent in 02/2020 No clinical history of retinal artery occlusion/ tia/stroke Denies any acute focal weakness or sensory changes in unilateral extremities She notes that with activities involving physical exertion, postural changes--she gets lightheaded, almost faints . Denies any double vision or facial weakness with the spells. She could have bilateral upper extremity weakness. With walking she experiences lower extremity claudication pain Her initial symptoms were LE leg cladication pain with walking 3 years ago- progressively worsened In the last year - she has been feeling lightheaded everyday , feels anxious , and several spells of near fainting-- denies vertigo or tinnitus---- brought on with laughing / postural changes Denies any thunderclap PINON Denies any admissions specifically for stroke workup She has quit smoking since dec 2018 Compliant with meds Hypotension : She notes her BP have been lower than 120 systolic in past - also associated with feeling fatigue / unwell sensation and lightheadedness Significant family history for aneurysm - Her mother passed from a brain aneurysm rupture at the age of 46 - Her cousin from an aneurysm rupture at the age of 31 Paternal uncle with [place] at age of 50 ?she has had 3 pregnancies in past without complications In 03/08/20-- brief spell of rt facial twitching -- no LOC -- was worked up at [facility] - no acute changes on MRI brain , EEG - no Sz acitivuty INTERVAL HISTORY : - no new symptoms - completed MRI brain MRA perfusion imaging ? Antiplatelets/Anticoag ulants: Aspirin and Clopidogrel Statins: Atorvastatin - lipitor 40 mg po dialy Zetia 10 mg po daily -- 11/27/19 : Chol 140 LDL 55 Side effects: No Refills needed: No Current PT/OT/ST: No therapy needs Initial Discharge Disposition: Home Current use of a mobility aid for walking/getting around: None MEDICATIONS Current Outpatient Medications Medication Sig - LINZESS 72 mcg capsule Take 1 capsule by mouth once daily. - lisinopril (ZESTRIL, PRINIVIL) 5 mg tablet Take 1 tablet by mouth once daily. - ezetimibe (ZETIA) 10 mg tablet Take 1 tablet by mouth once daily. - vortioxetine (TRINTELLIX) 10 mg tab Take by mouth. taking 1 1/2 tablets currently - prazosin (MINIPRESS) 1 mg cap Take 2 mg by mouth daily at bedtime. - atorvastatin (LIPITOR) 40 mg tablet Take 1 tablet by mouth daily at bedtime. - clopidogrel (PLAVIX) 75 mg tablet TAKE 1 TABLET BY MOUTH ONCE DAILY FOR 14 DAYS - clonazePAM (KLONOPIN) 0.5 mg tablet Take 0.5 mg by mouth twice daily. - aspirin, enteric coated (ASPIRIN, ENTERIC COATED) 81 mg EC tablet Take 81 mg by mouth once daily. - cholecalciferol (VITAMIN D) 1,000 unit tab tablet Take 1 capsule by mouth once daily. - estrogens conjugated (PREMARIN) 0.45 mg tablet Take 0.45 mg by mouth once daily. No current facility-administered medications for this visit. ALLERGIES Allergen Reactions - Amlodipine Swelling BLE swelling - Penicillins EXAM : non focal neuro exam based on the limitations of the virtual exam LABS Cholesterol: Cholesterol, Total (mg/dL) Date Value 01/27/2020 125 LDL Cholesterol (mg/dL) Date Value 11/27/2019 Unable to calculate due to increased Triglycerides. See LDL-Chol, Direct. LDL Calculated (mg/dL) Date Value 01/27/2020 46 HDL Cholesterol (mg/dL) Date Value 01/27/2020 44 Triglyceride (mg/dL) Date Value 01/27/2020 174 Diabetes: Hemoglobin A1C (%) Date Value 01/27/2020 5[address] Duran review : 11/27/19 CTA upper extremity: aberrant RSA retropharyngeal, nonaneurysmal, RCCA stent does not appear to extend into aorta w stenosis in RCCA proximal to stent, LCCA origin stenosis. She essentially has stenosis at origin of all arch vessels 10/22/19 RABI 1.06, LABI 1.08 10/22/19 duplex: patent b/l LE vessels 10/22/19 RCCA 50-99%, SHANA 20-39%,RSA turbulent flow, LCCA turbulent flow, LICA 20-39%, LSA 50-99% 10/22/19 UE PVR: b/l UE subclavian/axilary/inn ominate disease w pulsatile waveforms to hand 04/22/19 RRA 60-99%, LRA 0-59% 03/04/19 angiography of RCIA stent and RCCA stent palcement: 9x30 Smart stent RCIA and 8x20 Precise stent RCCA stent 02/28/19 aortogram: poor opacification of R kidney compared to L, pigtail from the Larm, patent, patent vessels from aorta to trifucation (no shots of feet), arch angiogram as well ? CTA neck : upper extremity : 11/27/19 : IMPRESSION: Atheromatous calcification involving the great vessel origins with 4 vessel aortic arch with stent in the proximal right common carotid artery. ?Unable to definitively interrogate the lumen but at least moderate stenoses of the origins and of the stent. ?No significant additional disease of the remainder of the carotid system or of the vertebral arteries with mild stenosis of the vertebral artery origins. IMPRESSION: * ?Aberrant right subclavian artery arising off the more distal aspect of the thoracic arch: moderate to severe stenosis at its origin due to eccentric plaque. * ?Mild left subclavian artery origin stenosis. * ?Streak artifact from the innominate vein contrast limits evaluation of bilateral carotid artery origins. * ?The right common carotid artery is the first vessel arising off the arch, is status post stent placement and imaging suggestive of significant in-stent restenosis. * ?Imaging suggests significant stenosis origin of left common carotid artery. MRI brain : 03/08/2019 : MRI brain : [facility] : mild small vessel chronic WM disease 02/03/20 : MRI brain with perfusion study : IMPRESSION: No acute findings or abnormal intracranial enhancement, specifically no evidence of an acute infarct. No perfusion abnormality. Patient Entered Questionnaires PROMIS/NeuroQoL Score Percentiles Percentiles provide an indication of how the patient's score ranks in relation to the general population. Higher percentile rankings indicate better function/quality of life. 50th percentile is the average of the general population and indicates half of respondents had a worse score. Physical Health 02/10/2020 12/11/2019 Physical Function Percentile 2 4 Sleep Percentile 12 24* Fatigue Percentile 1 1 Pain Interference Percentile 1 4 Social Health 02/10/2020 12/11/2019 Social Role Satisfaction Percentile 1 1 Mental Health 02/10/2020 12/11/2019 NeuroQol Cognitive Function Percentile 1 8 General Self-Efficacy Percentile - 2 PROMIS Global Health Scale 12/11/2019 06/16/2019 Physical Health Percentile 4 10 Mental Health Percentile 2 9 Depression Screening: PHQ-9 02/10/2020 12/11/2019 06/16/2019 Score 11 11 8 PHQ-9 Self Harm 02/10/2020 12/11/2019 06/16/2019 Question 9 Not at all Not at all Not at all PHQ-9 Self-Harm (Item 9) response options: 0 Not at all 1 Several days 2 More than half the days 3 Nearly every day PHQ-9 Levels: 0-4 No to mild depression 5-9 Mild depression 10-14 Moderate depression 15-19 Moderately severe depression 20-27 Severe depression Sleep Apnea Probability Screen 06/16/2019 Probability of moderate-severe sleep apnea (%) SAPS V1 11.75 (Sleep study not recommended) Stroke Mechanism and Scales Ischemic or TIA: - Non stroke etiology Chronic small vessel disease IMPRESSION : 1. Presyncope -- extensive aortic atheromatous calcification in origin of all major vessels -- rt CCA and ICA stent in02/2019 for high-grade stenosis. Based on 11/28/2019 review of CTA neck --concerning for right common carotid artery stent restenosis 2. Presyncope also with cerebral hypoperfusion/ insufficiency-postural changes; also with previous known sinus bradycardia--- related to extensive aortic arch Atherosclerosis - aberrant right subclavian artery moderate to severe stenosis at origin. Mild left subclavian artery stenosis; right CCA stent stenosis; left carotid artery origin significant stenosis 3. Stroke risk factors extensive smoking history from age 16; uncontrolled hypertension for a few years - but well controlled now; hyperlipidemia well controlled now; obesity; peripheral vascular disease 4. Chronic small vessel white matter changes--mild--- suspect underlying small vessel atherosclerosis 5. Significant family history of intracranial aneurysms PLAN 1. MRI brain with perfusion : 02/03/20 -- no perfusion deficit 2. Will get aortic arch cerebral angio - [facility] -- discussed with Dr Catherine 3. Will also review with Dr Webber in vascular medicine -- if etiology likely atherosclerosis --- in past ESR WNL - no inflammation noted 4. CTA head/neck-01/07/20 : No evidence of intracranial or extracranial arterial large vessel occlusion. ?No visualized intracranial aneurysm. 5. Symptoms of presyncope is likely related to mild cerebral hypoperfusion /insufficiency with-postural changes atheromatous calcification in the great vessel origins--- proximal right common carotid artery stenting; focal disease at vertebral artery origins calcified on the right with dominant right vertebral artery resulting in mild stenosis; bilateral ICA carotid - no flow-limiting stenosis seen. 6. Medical management for now with aspirin 81 mg Plavix 75 mg by mouth daily 7. Continue Lipitor Zetia- at goal cholesterol 140 LDL 55 8. Discussed stroke and TIA symptoms; vasculopath with high risk for stroke / CAD Continue smoking cessation - quit 12/2019 RTC : 3 months FU on cerebral angio Discussion, counseling, coordination of care > 50% of 75 minutes. Questions asked/ answered. Follow-up with results/ adherence to plan/ continued education. This visit was completed virtually due to the current COVID-19 pandemic. Virtual consultations present some obvious limitations, most notably in the ability to perform exam other than observation through video which may influence assessment and recommendations to some degree. This was discussed with patient prior to initiation. The patient consented to proceeding with known limitations of virtual assessment. SIGNATURE Elliott Salazar MD Staff, [facility] [address] [facility] [address] 12/11/2019 3:10 [place] [id number] [facility] [address] Elliott Salazar, 02/12/2020 3:18 PM Signed Cerebral angiogram to be scheduled at [facility] ~~~~~~~~~~~~~~~~~~~~~~ ~~~~~~~~~~~~~~~~~~~~~~ ~~~~~~~~~~~~~~~~~~~~~~ ~~~~~~ Stroke Signs and Symptoms: *Stroke is a medical emergency. Know these warning signs of stroke: Sudden numbness or weakness of the face, arm or leg, especially on one side of the body Sudden confusion, trouble speaking, or understanding Sudden trouble seeing in one eye, or both eyes Sudden trouble walking, dizziness, loss of balance, or coordination Sudden severe headache with no known cause *If you, or someone with you, has one or more of these signs, don't delay! Immediately call 911, or the emergency medical services (EMS) number so an ambulance can be sent for you. Also, check the time so that you will know when the symptoms first appeared. It is very important to take immediate action, every second counts. Medical treatment may be available if action is taken early enough. ~~~~~~~~~~~~~~~~~~~~~~ ~~~~~~~~~~~~~~~~~~~~~~ ~~~~~~~~~~~~~~~~~~~~~~ ~~~~~~ General Guidelines to Help Reduce Risk of Recurrent Stroke Blood Pressure Management: Blood Pressure reduction is recommended for both prevention of recurrent stroke and prevention of other vascular events in persons who have had an ischemic stroke or TIA and are beyond the first 24 hours. Several lifestyle modifications have been associated with BP reduction and are a reasonable part of a comprehensive antihypertensive therapy -These modifications include: - salt restriction - weight loss - consumption of a diet rich in fruits, vegetables, and low-fat dairy products - Regular aerobic physical activity - Limited alcohol consumption. Goal: Reduction of approximately 10/5 mm Hg, and normal BP levels have been defined as <120/80 mm Hg Cholesterol and Lipid Management - Statin therapy with intensive lipid-lowering effects is recommended to reduce risk of stroke and cardiovascular events among patients with ischemic stroke or TIA who have evidence of atherosclerosis, an LDL-C level >100 mg/dL, and who are without known CHD Goal: Target a reduction of at least 50% in LDL-C or a target LDL-C level of<70 mg/dL to obtain maximum benefit Smoking and Tobacco Use: - Strongly recommend smoking and tobacco use cessation to reduce risk of stroke. - Counseling, nicotine products, and oral smoking cessation medications are effective for helping smokers quit and can be provided if needed. Alcohol Consumption: - Heavy drinkers should eliminate or reduce their consumption of alcohol. - Light to moderate levels of alcohol consumption (no more than 2 drinks per day for men and 1 drink per day for women who are not ) may be reasonable. Exercise - If capable of engaging in physical activity, at least 30 minutes of moderate-intensity physical exercise, typically defined as vigorous activity sufficient to break a sweat or noticeably raise heart rate, 1 to 3 times a week (eg, walking briskly, using an exercise bicycle) may be considered to reduce the risk factors and comorbid conditions that increase the likelihood of recurrent stroke - If disability after ischemic stroke, supervision by a healthcare professional, such as a physical therapist or cardiac rehabilitation professional, at least on initiation of an exercise regimen, may be considered Adopted from the [place] [employer] Attack : A Guideline for Healthcare Professionals From the [place] [employer] Guidelines for the Prevention of Stroke in Patients With Stroke or Transient Ischemic: Stroke 2010 Elliott Salazar, 02/12/2020 3:19 PM Signed Addended by: ELLIOTT SALAZAR on: 02/12/2020 03:19 PM Modules accepted: Orders Normal [facility] No Panel Informationon 01-06 [facility] Vital Signs Date Time Vital Sign Value Performing Clinician Facility 09-07-2023 10:12-0400 Body height 157.5 cm Mikey Ware MD Work Phone: [facility] 09-07-2023 10:12-0400 Body mass index (BMI) [Ratio] 27.25 kg/m2 Mikey Ware MD Work Phone: [facility] 09-07-2023 10:12-0400 Body weight 67.59 kg Mikey Ware MD Work Phone: [facility] 09-07-2023 10:12-0400 Diastolic blood pressure 72 mm[Hg] Mikey Ware MD Work Phone: [facility] 09-07-2023 10:12-0400 Heart rate 69 /min Mikey Ware MD Work Phone: [facility] 09-07-2023 10:12-0400 Systolic blood pressure 118 mm[Hg] Mikey Ware MD Work Phone: [facility] 08-19-2023 17:01-0400 Diastolic blood pressure 74 mm[Hg] Renetta Aichholz Work Phone: [facility] 08-19-2023 17:01-0400 Heart rate 92 /min Renetta Aichholz Work Phone: [facility] 08-19-2023 17:01-0400 Respiratory rate 18 /min Renetta Aichholz Work Phone: [facility] 08-19-2023 17:01-0400 SaO2% (BldA) [Mass fraction] 94 % Renetta Aichholz Work Phone: [facility] 08-19-2023 17:01-0400 Systolic blood pressure 118 mm[Hg] Renetta Aichholz Work Phone: [facility] 08-19-2023 12:21-0400 Body height 157.48 cm Renetta Aichholz Work Phone: [facility] 08-19-2023 12:21-0400 Body temperature 98.3 [degF] Renetta Aichholz Work Phone: [facility] 08-19-2023 12:21-0400 Body weight 67.4 kg Renetta Aichholz Work Phone: [facility] 06-20-2023 13:15-0500 Body height 154.9 cm Renetta Aichholz CUSTOMER SERVICE DISPATCHER Work Phone: [facility] 06-20-2023 13:15-0500 Body mass index (BMI) [Ratio] 27.21 kg/m2 Renetta Aichholz CUSTOMER SERVICE DISPATCHER Work Phone: [facility] 06-20-2023 13:15-0500 Body temperature 97.3 [degF] Renetta Ridley CUSTOMER SERVICE DISPATCHER Work Phone: [facility] 06-20-2023 13:15-0500 Body weight 65.32 kg Renetta Villagomezz CUSTOMER SERVICE DISPATCHER Work Phone: [facility] 06-20-2023 13:15-0500 Diastolic blood pressure 98 mm[Hg] Renettamike Bellamyholz CUSTOMER SERVICE DISPATCHER Work Phone: [facility] 06-20-2023 13:15-0500 Heart rate 65 /min Renettamike Villagomezz CUSTOMER SERVICE DISPATCHER Work Phone: [facility] 06-20-2023 13:15-0500 Respiratory rate 18 /min Renetta Villagomezz CUSTOMER SERVICE DISPATCHER Work Phone: [facility] 06-20-2023 13:15-0500 SaO2% (BldA) [Mass fraction] 98 % Renetta Villagomezz CUSTOMER SERVICE DISPATCHER Work Phone: [facility] 06-20-2023 13:15-0500 Systolic blood pressure 144 mm[Hg] Renetta Villagomezz CUSTOMER SERVICE DISPATCHER Work Phone: [facility] 09-01-2022 11:50-0400 Diastolic blood pressure 82 mm[Hg] Christavinasher Vincent DO Work Phone: [facility] 09-01-2022 11:50-0400 Heart rate 73 /min Christopher Vincent DO Work Phone: [facility] 09-01-2022 11:50-0400 Systolic blood pressure 114 mm[Hg] Christopher Vincent DO Work Phone: [facility] 07-19-2022 14:00-0400 Diastolic blood pressure 86 mm[Hg] Yanelis French PT, DPT Work Phone: [facility] 07-19-2022 14:00-0400 Heart rate 75 /min Yanelis French PT, DPT Work Phone: [facility] 07-19-2022 14:00-0400 Systolic blood pressure 115 mm[Hg] Yanelis French PT, DPT Work Phone: [facility] 07-12-2022 10:27-0500 Body temperature 98.71 [degF] Fabien Gonzalez PA-C Work Phone: [facility] 07-12-2022 10:27-0500 Diastolic blood pressure 88 mm[Hg] Fabien Gonzalez PA-C Work Phone: [facility] 07-12-2022 10:27-0500 Heart rate 95 /min Fabien BRIONES-C Work Phone: [facility] 07-12-2022 10:27-0500 Systolic blood pressure 119 mm[Hg] Fabien BRIONES-C Work Phone: [facility] 06-28-2022 13:00-0500 Body height 157.48 cm Timmy Chavez Other [facility] Other 06-28-2022 13:00-0500 Body mass index (BMI) [Ratio] 25.24 kg/m2 Timmy Chavez Other [facility] Other 06-28-2022 13:00-0500 Body weight 62.6 kg Timmy Chavez Other [facility] Other 06-28-2022 13:00-0500 Diastolic blood pressure 79 mm[Hg] Timmy Chavez Other [facility] Other 06-28-2022 13:00-0500 Respiratory rate 16 /min Timmy Chavez Other [facility] Other 06-28-2022 13:00-0500 Systolic blood pressure 120 mm[Hg] Timmy Chavez Other [facility] Other 06-25-2022 17:15-0500 Diastolic blood pressure 97 mm[Hg] Renetta Aichholz Work Phone: [facility] 06-25-2022 17:15-0500 Heart rate 109 /min Renetta Aichholz Work Phone: [facility] 06-25-2022 17:15-0500 Respiratory rate 20 /min Renetta Aichholz Work Phone: [facility] 06-25-2022 17:15-0500 SaO2% (BldA) [Mass fraction] 98 % Renetta Aichholz Work Phone: [facility] 06-25-2022 17:15-0500 Systolic blood pressure 153 mm[Hg] Renetta Aichholz Work Phone: [facility] 06-25-2022 13:16-0500 Body height 157.48 cm Renetta Aichholz Work Phone: [facility] 06-25-2022 13:16-0500 Body temperature 99 [degF] Renetta Aichholz Work Phone: [facility] 06-25-2022 13:16-0500 Body weight 63.04 kg Renetta Aichholz Work Phone: [facility] 06-22-2022 15:13-0500 Body height 157 cm Hotel Superintendent Work Phone: [facility] 06-22-2022 15:13-0500 Body weight 65 kg Hotel Superintendent Work Phone: [facility] 06-22-2022 15:13-0500 Diastolic blood pressure 77 mm[Hg] Hotel Superintendent Work Phone: [facility] 06-22-2022 15:13-0500 Heart rate 73 /min Hotel Superintendent Work Phone: [facility] 06-22-2022 15:13-0500 Systolic blood pressure 110 mm[Hg] Hotel Superintendent Work Phone: [facility] 06-22-2022 14:26-0500 Body height 157.5 cm Ting Camilo MD Work Phone: [facility] 06-22-2022 14:26-0500 Body temperature 97.81 [degF] Ting Camilo MD Work Phone: [facility] 06-22-2022 14:26-0500 Body weight 65.36 kg Ting Camilo MD Work Phone: [facility] 06-22-2022 14:26-0500 Diastolic blood pressure 77 mm[Hg] Ting aCmilo MD Work Phone: [facility] 06-22-2022 14:26-0500 Heart rate 73 /min Ting Camilo MD Work Phone: [facility] 06-22-2022 14:26-0500 Systolic blood pressure 110 mm[Hg] Ting Camilo MD Work Phone: [facility] 05-12-2022 01:00-0500 Diastolic blood pressure 85 mm[Hg] Renetta Aichholz Work Phone: [facility] 05-12-2022 01:00-0500 Heart rate 69 /min Renetta Aichholz Work Phone: [facility] 05-12-2022 01:00-0500 Respiratory rate 18 /min Renetta Aichholz Work Phone: [facility] 05-12-2022 01:00-0500 SaO2% (BldA) [Mass fraction] 98 % Renetta Aichholz Work Phone: [facility] 05-12-2022 01:00-0500 Systolic blood pressure 192 mm[Hg] Renetta Aichholz Work Phone: [facility] 05-11-2022 21:32-0500 Body height 157.48 cm Renetta Aichholz Work Phone: [facility] 05-11-2022 21:32-0500 Body weight 65.5 kg Renetta Aichholz Work Phone: [facility] 05-11-2022 21:31-0500 Body temperature 98.1 [degF] Renetta Ridley Work Phone: [facility] 03-23-2022 13:51-0500 Body height 157.5 cm Ting Camilo MD Work Phone: [facility] 03-23-2022 13:51-0500 Body temperature 97.9 [degF] Ting Camilo MD Work Phone: [facility] 03-23-2022 13:51-0500 Body weight 68.04 kg Ting Camilo MD Work Phone: [facility] 03-23-2022 13:51-0500 Diastolic blood pressure 89 mm[Hg] Ting Camilo MD Work Phone: [facility] 03-23-2022 13:51-0500 Heart rate 87 /min Ting Camilo MD Work Phone: [facility] 03-23-2022 13:51-0500 Systolic blood pressure 124 mm[Hg] Ting Camilo MD Work Phone: [facility] 01-05-2022 11:52-0400 Body height 157.5 cm Brad Bone Jr., MD Work Phone: [facility] 01-05-2022 11:52-0400 Body weight 70.76 kg Brad Bone Jr., MD Work Phone: [facility] 09-20-2021 14:51-0400 Body height 157.5 cm Ting Camilo MD Work Phone: [facility] 09-20-2021 14:51-0400 Body temperature 97.7 [degF] Ting Camilo MD Work Phone: [facility] 09-20-2021 14:51-0400 Body weight 77.07 kg Ting Camilo MD Work Phone: [facility] 09-20-2021 14:51-0400 Diastolic blood pressure 85 mm[Hg] Ting Camilo MD Work Phone: [facility] 09-20-2021 14:51-0400 Heart rate 90 /min Ting Camilo MD Work Phone: [facility] 09-20-2021 14:51-0400 Systolic blood pressure 129 mm[Hg] Ting Camilo MD Work Phone: [facility] 09-09-2021 13:23-0400 Body height 157.5 cm Vik Sutherland MD Work Phone: [facility] 09-09-2021 13:23-0400 Body weight 74.84 kg Vik Sutherland MD Work Phone: [facility] 09-09-2021 13:23-0400 Diastolic blood pressure 70 mm[Hg] Vik Sutherland MD Work Phone: [facility] 09-09-2021 13:23-0400 Heart rate 96 /min Vik Sutherland MD Work Phone: [facility] 09-09-2021 13:23-0400 Systolic blood pressure 102 mm[Hg] Vik Sutherland MD Work Phone: [facility] 08-10-2021 13:53-0400 Body weight 74.39 kg Mikey Palomo MD Work Phone: [facility] 08-10-2021 13:53-0400 Diastolic blood pressure 82 mm[Hg] Mikey Palomo MD Work Phone: [facility] 08-10-2021 13:53-0400 Systolic blood pressure 155 mm[Hg] Mikey Palomo MD Work Phone: [facility] Encounters Encounter Date Encounter Type Care Provider Facility Start: 01-23-2024 End: 01-23-2024 ambulatory RENETTA KHAI Not Available Start: 09-07-2023 End: 09-07-2023 ambulatory MIKEY WARE [facility] Ambulatory Start: 09-07-2023 End: 09-07-2023 Office outpatient new 45 minutes Mikey Ware MD Work Phone: [facility] Comment on above: Peripheral vascular disease, unspecified (CMS-HCC) (Primary Dx) Start: 08-28-2023 End: 08-28-2023 ambulatory RENETTA AICHHOLZ Not Available Start: 08-19-2023 End: 08-19-2023 Emergency department patient visit Jose Sofia Facility:[facility] Start: 08-19-2023 End: 08-19-2023 Emergency department patient visit Renetta Ridley Work Phone: [facility] Work Phone: Start: 07-23-2023 End: 07-23-2023 ambulatory RENETTA BELLAMYHOLZ Not Available Start: 06-20-2023 Bamboo flowsheet Renetta Ridley CUSTOMER SERVICE DISPATCHER Work Phone: [facility] Start: 06-20-2023 Bamboo flowsheet Renetta Ridley CUSTOMER SERVICE DISPATCHER Work Phone: [facility] Start: 06-20-2023 Clinisync Result Encounter Renetta Ridley CUSTOMER SERVICE DISPATCHER Work Phone: [facility] Unsolicited Start: 06-20-2023 End: 06-20-2023 Office outpatient visit 25 minutes Renetta Ridley CUSTOMER SERVICE DISPATCHER Work Phone: [facility] Comment on above: Generalized anxiety disorder with panic attacks (CMS/HCC) (Primary Dx); Encounter for screening mammogram for malignant neoplasm of breast; Hyperlipemia, mixed (CMS/HCC); Vitamin D insufficiency; Hypothyroidism, adult (CMS/HCC); Gastroesophageal reflux disease with esophagitis, unspecified whether hemorrhage; Hypertension, essential (CMS/HCC); PVD (peripheral vascular disease) (CMS/HCC); BMI 27.0-27.9,adult Start: 06-20-2023 End: 06-20-2023 ambulatory RENETTA JOSESITOHOLZ Not Available Start: 09-01-2022 End: 09-01-2022 ambulatory KARTHIK ZARATE Facility:[facility] Start: 09-01-2022 End: 09-01-2022 Patient encounter procedure Karthik Zarate DO Work Phone: Neurology Comment on above: Dizziness (Primary D x); Arachnoid cyst Start: 08-07-2022 Orders Only Ting Camilo MD Work Phone: [facility] Start: 07-27-2022 End: 07-27-2022 ambulatory Isha Smith PT Work Phone: Physical Therapy Comment on above: Dizziness (Primary D x); Cervicalgia; Balance problem Start: 07-26-2022 End: 07-26-2022 [facility] Start: 07-26-2022 End: 07-26-2022 Patient encounter procedure Carmenmike Lombardi AUD Work Phone: Audiology Comment on above: Lightheadedness (Mariann rohit Dx) Start: 07-24-2022 Refill Ting Camilo MD Work Phone: [facility] Start: 07-21-2022 End: 07-21-2022 ambulatory TING CAMILO Facility:[facility] Start: 07-19-2022 End: 07-19-2022 ambulatory Valentina Johnson, CCC-A Work Phone: Audiology Comment on above: Hearing Aids Dizziness (Primary D x); Lightheadedness Start: 07-19-2022 E-mail encounter fro m caregiver Valentina Johnson, CCC-A Work Phone: [facility] Start: 07-13-2022 End: 07-14-2022 ambulatory QUINTNE RENETTA REJISethCELSO Facility: Start: 07-12-2022 End: 07-12-2022 ambulatory Fabien Gonzalez PA-C Work Phone: Otolaryngology Comment on above: Therapy Start: 07-12-2022 End: 07-12-2022 Patient encounter procedure Valentina Johnson, CCC-A Work Phone: Audiology Comment on above: Tinnitus, bilateral (Primary Dx); Other specified hearing loss, unspecified ear; Asymmetrical sensorineural hearing loss; Dizziness Asymmetrical sensori neural hearing loss (Primary Dx); Dizziness; Lightheadedness; Tinnitus, bilateral; Arachnoid cyst Start: 07-11-2022 End: 07-11-2022 ambulatory Timmy Chavez Other [facility] Other Start: 07-11-2022 Telephone encounter Timmy Waltre [facility] Start: 07-04-2022 Orders Only Ting Camilo MD Work Phone: [facility] Comment on above: Essential hypertensi on (Primary Dx) Results Start: 06-29-2022 End: 06-29-2022 ambulatory Robert Gramajo MD Work Phone: [facility] Start: 06-29-2022 Patient encounter procedure Robert Gramajo MD Work Phone: [facility] Start: 06-29-2022 Telephone encounter Timmy Walter [facility] Start: 06-28-2022 End: 06-28-2022 ambulatory Timmy Chavez Other [facility] Other Start: 06-28-2022 Patient encounter procedure Timmy BOJORQUEZ Gastroenterology Start: 06-27-2022 Orders Only Ting Camilo MD Work Phone: [facility] Comment on above: Abnormal EKG (Primar y Dx) Start: 06-25-2022 End: 06-25-2022 Emergency department patient visit Renetta Bellamytodddagoberto Work Phone: [facility] Work Phone: Start: 06-22-2022 End: 06-22-2022 Patient encounter procedure Ting Camilo MD Work Phone: [facility] Comment on above: Essential hypertensi on (Primary Dx); Renal artery stenosis (HCC); Tachycardia Hypotension, unspeci fied hypotension type (Primary Dx) Start: 06-22-2022 End: 06-23-2022 ambulatory Ting Camilo MD Work Phone: [facility] Start: 06-14-2022 Orders Only Ting Camilo MD Work Phone: [facility] Comment on above: Essential hypertensi on (Primary Dx); Hypotension, unspecified hypotension type Start: 06-01-2022 End: 06-02-2022 ambulatory RENETTA RIDLEY Facility:[facility] Start: 05-30-2022 End: 05-31-2022 Orders Only Ting Camilo MD Work Phone: [facility] Comment on above: Essential hypertensi on (Primary Dx) Start: 05-18-2022 End: 05-19-2022 amb[facility] Start: 05-15-2022 Orders Only Ting Camilo MD Work Phone: [facility] Comment on above: Essential hypertensi on (Primary Dx) Start: 05-12-2022 Orders Only Ting Camilo MD Work Phone: [facility] Start: 05-11-2022 End: 05-12-2022 Emergency department patient visit Renetta Ridley Work Phone: [facility] Work Phone: Start: 05-09-2022 Orders Only Ting Camilo MD Work Phone: [facility] Comment on above: Essential hypertensi on (Primary Dx) Start: 05-04-2022 End: 05-04-2022 ambulatory [facility] Start: 05-03-2022 End: 05-03-2022 ambulatory [facility] Start: 03-23-2022 End: 03-24-2022 Orders Only Fermin Begum MD Work Phone: Vascular Surgery Comment on above: Abdominal aortic ane urysm (AAA) without rupture, unspecified part (Primary Dx); NANCY (renal artery stenosis) (HCC); Carotid stenosis, asymptomatic, bilateral Peripheral arterial disease (HCC) (Primary Dx) Renal artery stenosi s (HCC) (Primary Dx); Essential hypertension; Kidney cyst, acquired Start: 03-22-2022 End: 03-23-2022 Orders Only Fermin Begum MD Work Phone: Vascular Surgery Comment on above: Bilateral carotid ar ady stenosis; PVD (peripheral vascular disease) (HCC); Renal artery stenosis (HCC); Atherosclerosis Start: 01-05-2022 End: 01-05-2022 ambulatory RENETTA HAWTHORNE [facility] Facility:[facility] Start: 01-05-2022 End: 01-05-2022 Patient encounter procedure Brad Bone MD Work Phone: General Surgery Comment on above: Nausea and vomiting, unspecified vomiting type (Primary Dx); Bloating; Other constipation Start: 12-28-2021 Telephone encounter Meliza Dobbins RN Work Phone: General Surgery Comment on above: Mat Inspector - O ther Start: 12-16-2021 End: 12-17-[address] GURMEET PUGH Facility:[facility] Start: 12-12-2021 End: 12-13-[address] GURMEET PUGH Facility:[facility] Start: 11-29-2021 End: 11-30-2021 ambulatory QUINTEN RENETTA RIDLEY Facility:[facility] Start: 10-31-2021 End: 11-01-[address] GURMEET PUGH Facility:[facility] Start: 10-25-2021 End: 10-26-2021 ambulatory QUINTEN PAVONMike RIDLEY Facility:[facility] Start: 10-21-2021 ambulatory Mikey Nino am, MD Work Phone: Pain Management Comment on above: Medication Start: 10-19-2021 ambulatory Mikey Nino am, MD Work Phone: [facility] Start: 10-19-2021 Patient encounter procedure Mikey Palomo MD Work Phone: Pain Management Comment on above: Appointment Start: 2021 End: 2021 ambulatory MIKEY PALOMO Facility:[facility] Start: 2021 End: 2021 [facility] Mikey Palomo MD Work Phone: Pain Management Comment on above: Neuralgia and neurit is (Primary Dx); CAD, multiple vessel; RAJESH (generalized anxiety disorder) Start: 09-22-2021 End: 09-23-2021 ambulatory QUINTEN ESCOBAR REJISethCELSO Facility:[facility] Start: 09-20-2021 End: 09-21-2021 ambulatory TING CAMILO Facility:[facility] Start: 09-20-2021 End: 09-20-2021 Patient encounter procedure Ting Camilo MD Work Phone: Kidney Medicine [facility] Comment on above: Renal artery stenosi s (HCC) (Primary Dx); Essential hypertension Start: 09-09-2021 End: 09-09-2021 ambulatory VIK SUTHERLAND Facility:[facility] Start: 09-09-2021 End: 09-09-2021 Patient encounter procedure Vik Sutherland MD Work Phone: Cardiology Comment on above: Essential hypertensi on (Primary Dx); Dizziness; Dyspnea on exertion; PVD (peripheral vascular disease) (HCC) Start: 08-29-2021 End: 08-30-2021 ambulatory BENEFITS REPRESENTATIVE RENETTA RIDLEY Facility:[facility] Start: 08-16-2021 End: 08-16-2021 ambulatory BENEFITS REPRESENTATIVE RENETTA [facility] Facility:[facility] Start: 08-12-2021 End: 08-12-2021 Subsequent hospital visit by physician [facility] Work Phone: [facility] Radiology Bone Density Comment on above: Atherosclerosis [I70 .90] Start: 08-10-2021 End: 08-10-2021 Patient encounter procedure Mikey Palomo MD Work Phone: Pain Management Comment on above: Neuralgia and neurit is (Primary Dx); Atherosclerosis; Bilateral carotid artery stenosis; Hiatal hernia; Renal artery stenosis (HCC); RAJESH (generalized anxiety disorder); CAD, multiple vessel; Encounter for screening for osteoporosis; Asymptomatic postmenopausal status; Premature menopause Start: 05-02-2021 End: 05-02-2021 Subsequent hospital visit by physician [facility] [address] Comment on above: Arteritis, Takayasu (HCC) [M31.4] Start: 04-28-2021 End: 04-28-2021 Subsequent hospital visit by physician [facility] Radha Work Phone: Radiology Comment on above: Renovascular hyperte nsion [I15.0] Start: 01-07-2020 End: 01-07-2020 Subsequent hospital visit by physician Ct [facility] Radha Work Phone: Radiology Comment on above: 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] Procedures Date Procedure Procedure Detail Performing Clinician Start: 08-19-2023 Computed tomography of abdomen and pelvis with contrast Renetta Bellamycelos Work Phone: Start: 06-20-2023 TB MICROALB CREAT R ATIO RANDOM Renetta Bellamycelso CUSTOMER SERVICE DISPATCHER Work Phone: Start: 07-13-2022 Mammography Renetta Josesitoseth jenny CUSTOMER SERVICE DISPATCHER Work Phone: Start: 06-25-2022 Computed tomography of abdomen and pelvis with contrast Renetta Bellamycelso Work Phone: Start: 06-22-2022 Urnls dip stick/tabl et rgnt auto w/o microscopy Bulk Order Provider Start: 05-11-2022 CT angiography of head Renetta Khai Work Phone: Start: 05-11-2022 CT angiography of ne ck vessels Renetta hKai Work Phone: Start: 05-11-2022 CT of head without contrast Renetta Bellamycelso Work Phone: Start: 08-12-2021 Dxa bone density khris dy 1/> sites axial skel Mikey Palomo MD Work Phone: Start: 06-10-2021 Adult depression screening assessment Mikey Palomo MD Work Phone: Start: 05-02-[address] attenuation whole body Tiara Navas MD Work Phone: Start: 04-28-2021 Ct angiography abdom en w/contrast/noncontrast Ting Camilo MD Work Phone: Start: 04-06-2020 Colonoscopy Renetta alvarado CUSTOMER SERVICE DISPATCHER Work Phone: Start: 01-07-2020 Ct angiography head w/contrast/noncontrast Elliott Salazar MD Work Phone: Start: 01-07-2020 Ct angiography neck w/contrast/noncontrast Elliott Salazar MD Work Phone: Plan of Treatment Date Care Activity Detail Author Start: 04-06-2030 Screening for malignant neoplasm of colon [facility] Start: 03-16-2026 LIPID SCREEN LIPID SCREEN [facility] Start: 09-06-2024 End: 09-06-2025 Vascular US Ankle Brachial Index (DALTON) Without Exercise Vascular US Ankle Brachial Index (DALTON) Without Exercise Vascular Ultrasound Routine Peripheral vascular disease, unspecified ([facility]-HCC) Expected: 09/06/2024 (Approximate), Expires: 09/06/2025 [facility] Work Phone: Comment on above: Expected: 09/06/2024 (Approximate), Expi res: 09/06/2025 Start: 03-16-2024 DIABETES SCREEN DIABETES SCREEN [facility] Start: 01-06-2024 Influenza vaccination Influenza Vaccine (Season Ended) [facility] Start: 09-07-2023 End: 09-06-2025 US.doppler Carotid arteries - bilateral Vascular US carotid artery duplex bilateral Vascular Ultrasound Routine Peripheral vascular disease, unspecified ([facility]-HCC) Expected: 09/07/2023 (Approximate), Expires: 09/06/2025 [facility] Work Phone: Comment on above: Expected: 09/07/2023 (Approximate), Expi res: 09/06/2025 Start: 09-07-2023 End: 09-06-2025 Vascular US upper PVR Vascular US upper PVR Vascular Ultrasound Routine Peripheral vascular disease, unspecified ([facility]-HCC) Expected: 09/07/2023 (Approximate), Expires: 09/06/2025 [facility] Service Area Work Phone: Comment on above: Expected: 09/07/2023 (Approximate), Expi res: 09/06/2025 Start: 07-23-2023 End: 07-23-2023 Patient encounter procedure 07/23/2023 1:00 PM EDT Office Visit SHERRELL SHAFFER [address] [place] [address] Renetta Ridley NP [address] [place] [address] [facility] Start: 07-19-2023 End: 08-18-2024 MG Breast - bilateral Screening Bilateral screening mammogram Imaging Routine Encounter for screening mammogram for malignant neoplasm of breast Expected: 07/19/2023 (Approximate), Expires: 08/18/2024 [facility] Work Phone: Comment on above: Expected: 07/19/2023 (Approximate), Expi res: 08/18/2024 Start: 07-14-2023 Screening for malignant neoplasm of breast Mammogram [facility] Start: 06-22-2023 BP CONTROLLED (<130/80) BP CONTROLLED (<130/80) [facility] Start: 06-20-2023 End: 06-20-2024 25-hydroxyvitamin D3 [Mass/volume] in Serum or Plasma Vitamin D 25 hydroxy Lab Routine Vitamin D insufficiency Expected: 06/20/2023 (Approximate), Expires: 06/20/2024 [facility] Comment on above: Expected: 06/20/2023 (Approximate), Expi res: 06/20/2024 Start: 06-20-2023 End: 06-20-2024 CBC W Auto Differential panel - Blood CBC and differential Lab Routine Gastroesophageal reflux disease with esophagitis, unspecified whether hemorrhage Expected: 06/20/2023 (Approximate), Expires: 06/20/2024 [facility] Comment on above: Expected: 06/20/2023 (Approximate), Expi res: 06/20/2024 Start: 06-20-2023 End: 06-20-2024 Comprehensive metabolic 2000 panel - Serum or Plasma Comprehensive metabolic panel Lab Routine Hyperlipemia, mixed (CMS/HCC) Vitamin D insufficiency Hypothyroidism, adult (CMS/HCC) Gastroesophageal reflux disease with esophagitis, unspecified whether hemorrhage Hypertension, essential (CMS/HCC) PVD (peripheral vascular disease) (CMS/HCC) Expected: 06/20/2023 (Approximate), Expires: 06/20/2024 [facility] Comment on above: Expected: 06/20/2023 (Approximate), Expi res: 06/20/2024 Start: 06-20-2023 End: 06-20-2024 Lipid 1996 panel - Serum or Plasma Lipid panel Lab Routine Hyperlipemia, mixed (CMS/HCC) Expected: 06/20/2023 (Approximate), Expires: 06/20/2024 [facility] Comment on above: Expected: 06/20/2023 (Approximate), Expi res: 06/20/2024 Start: 06-20-2023 End: 06-20-2024 Microalbumin/Creatinine panel in random Urine Microalbumin / creatinine, urine ratio Lab Routine Hypertension, essential ([facility]/HCC) Expected: 06/20/2023 (Approximate), Expires: 06/20/2024 [facility] Comment on above: Expected: 06/20/2023 (Approximate), Expi res: 06/20/2024 Start: 06-20-2023 End: 06-20-2024 Thyrotropin [Units/volume] in Serum or Plasma TSH Lab Routine Hypothyroidism, adult ([facility]) Expected: 06/20/2023 (Approximate), Expires: 06/20/2024 [facility] Comment on above: Expected: 06/20/2023 (Approximate), Expi res: 06/20/2024 Start: 06-20-2023 End: 06-20-2024 Thyroxine (T4) free [Mass/volume] in Serum or Plasma T4, free Lab Routine Hypothyroidism, adult ([facility]) Expected: 06/20/2023 (Approximate), Expires: 06/20/2024 [facility] Comment on above: Expected: 06/20/2023 (Approximate), Expi res: 06/20/2024 Start: 06-20-2023 End: 06-20-2024 Urinalysis complete panel - Urine Urinalysis with reflex microscopic (clean catch) Lab Routine Hypertension, essential ([facility]) Expected: 06/20/2023 (Approximate), Expires: 06/20/2024 [facility] Comment on above: Expected: 06/20/2023 (Approximate), Expi res: 06/20/2024 Start: 06-20-2023 End: 06-20-2023 Patient encounter procedure 06/20/2023 1:20 PM EST Office Visit [facility] [address] [place] [address] Renetta Ridley NP [address] [place] [address] Encounter for screening mammogram for malignant neoplasm of breast (Primary Dx); Hyperlipemia, mixed (CMS/HCC); Vitamin D insufficiency; Hypothyroidism, adult (CMS/HCC); Gastroesophageal reflux disease with esophagitis, unspecified whether hemorrhage; Hypertension, essential (CMS/HCC); PVD (peripheral vascular disease) (CMS/HCC) [facility] Comment on above: Encounter for screening mammogram for ma lignant neoplasm of breast (Primary Dx); Hyperlipemia, mixed (CMS/HCC); Vitamin D insufficiency; Hypothyroidism, adult (CMS/HCC); Gastroesophageal reflux disease with esophagitis, unspecified whether hemorrhage; Hypertension, essential (CMS/HCC); PVD (peripheral vascular disease) (CMS/HCC) Start: 01-05-2023 COVID-19 Vaccine ( season) COVID-19 Vaccine ( season) [facility] Start: 01-05-2023 Influenza vaccination [facility] Start: 2022 SHINGRIX VACCINE (1 of 2) SHINGRIX VACCINE (1 of 2) [facility] Start: 2022 Zoster Vaccines (1 of 2) Zoster Vaccines (1 of 2) [facility] Start: 09-09-2022 BP CONTROLLED (<130/80) BP CONTROLLED (<130/80) [facility] Start: 09-04-2022 End: 04-22-2023 US KIDNEY/BLADDER US KIDNEY/BLADDER Radiology Routine Kidney cyst, acquired Expected: 09/04/2022, Expires: 04/22/2023 [facility] Work Phone: Comment on above: Expected: 09/04/2022, Expires: Start: 06-10-2022 Adult depression screening assessment DEPRESSION SCREENING [facility] Start: 05-15-2022 End: 07-15-2022 Aldosterone [Mass/volume] in Serum or Plasma ALDOSTERONE BLD Lab Routine Essential hypertension Expected: 05/15/2022, Expires: 07/15/2022 [facility] Work Phone: Comment on above: Expected: 05/15/2022, Expires: 3 Start: 05-15-2022 End: 07-15-2022 Catecholamines 3 panel [Mass/volume] - Plasma CATECHOLAMINES FRA Lab Routine Essential hypertension Expected: 05/15/2022, Expires: 07/15/2022 [facility] Work Phone: Comment on above: Expected: 05/15/2022, Expires: 3 Start: 05-15-2022 End: 07-15-2022 DIRECT RENIN PLASMA DIRECT RENIN PLASMA Lab Routine Essential hypertension Expected: 05/15/2022, Expires: 07/15/2022 [facility] Work Phone: Comment on above: Expected: 05/15/2022, Expires: 3 Start: 05-15-2022 End: 07-15-2022 METANEPHRINES, FREE PLASMA METANEPHRINES, FREE PLASMA Lab Routine Essential hypertension Expected: 05/15/2022, Expires: 07/15/2022 [facility] Work Phone: Comment on above: Expected: 05/15/2022, Expires: 3 Start: 05-15-2022 End: 07-15-2022 Renal function 2000 panel - Serum or Plasma RENAL FUNCTION PANEL Lab Routine Essential hypertension Expected: 05/15/2022, Expires: 07/15/2022 [facility] Work Phone: Comment on above: Expected: 05/15/2022, Expires: 3 Start: 05-07-2022 DEPRESSION ASSESSMENT DEPRESSION ASSESSMENT [facility] Start: 03-16-2022 Hepatitis B surface antibody level LDL CHOLESTEROL [facility] Start: 01-05-2022 Influenza vaccination [facility] Start: 09-09-2021 End: 09-09-2022 ECG COMPLETE ECG COMPLETE ECG Routine Essential hypertension Dizziness Dyspnea on exertion PVD (peripheral vascular disease) (HCC) Expected: 09/09/2021, Expires: 09/09/2022 [facility] Work Phone: Comment on above: Expected: 09/09/2021, Expires: 3 Start: 05-07-2021 DEPRESSION ASSESSMENT DEPRESSION ASSESSMENT [facility] Start: 2017 COLOGUARD (FIT-DNA) COLOGUARD (FIT-DNA) [facility] Start: 2017 Colonoscopy COLONOSCOPY [facility] Start: 2017 COLORECTAL CANCER SCREENING COLORECTAL CANCER SCREENING [facility] Start: [address] COLONOGRAPHY [facility] Start: 2017 FECAL OCCULT BLOOD FECAL OCCULT BLOOD [facility] Start: 2017 SIGMOIDOSCOPY SIGMOIDOSCOPY [facility] Start: 2012 Mammography MAMMOGRAM [facility] Start: 2012 Screening for malignant neoplasm of breast Mammogram [facility] Start: 2002 HPV TESTING HPV TESTING [facility] Start: 12-26-1997 DTaP/Tdap/Td Vaccines (1 - Tdap) DTaP/Tdap/Td Vaccines (1 - Tdap) [facility] Start: 1993 PAP TESTING PAP TESTING [facility] Start: 1993 Screening for malignant neoplasm of cervix [facility] Start: 10-19-1991 Urine microalbumin profile DTAP,TDAP,TD (1 - Tdap) [facility] Start: 1990 ANNUAL PCP TEAM CHRONIC DISEASE VISIT ANNUAL PCP TEAM CHRONIC DISEASE VISIT [facility] Start: 1990 BP CONTROLLED (<130/80) BP CONTROLLED (<130/80) [facility] Start: 1990 Diabetes mellitus screening Diabetes Screening [facility] Start: 1990 Hepatitis C screening Hepatitis C Screening [facility] Start: 1977 COVID-19 VACCINE (#1) COVID-19 VACCINE (#1) [facility] Start: 1977 COVID-19 VACCINE (1) COVID-19 VACCINE (1) [facility] Start: 04-19-1973 COVID-19 VACCINE (#1) COVID-19 VACCINE (#1) [facility] Start: 1972 HEPATITIS B (1 of 3 - 3-dose series) HEPATITIS B (1 of 3 - 3-dose series) [facility] Start: 1972 HIV screening HIV Screening [facility] Start: 1972 Lipid panel Lipid Panel [facility] Start: 1972 Screening for malignant neoplasm of colon [facility] Start: 1972 Yearly Adult Physical Yearly Adult Physical [facility] Ambulatory bp mntr w /sw 24 hr+ rec scan nicholas i&r AMBULATORY BP MONITORING Cardiology Routine Hypotension, unspecified hypotension type Ordered: 06/14/2022 [facility] Work Phone: Comment on above: Ordered: 06/14/2022 CATECHOLAMINES FRACTIONATED, URINE FREE CATECHOLAMINES FRACTIONATED, URINE FREE Lab Routine Essential hypertension Ordered: 05/30/2022 [facility] Work Phone: Comment on above: Ordered: 05/30/2022 CREATININE 24 HR UR CREATININE 2 4 HR UR Lab Routine Essential hypertension Ordered: 05/30/2022 [facility] Work Phone: Comment on above: Ordered: 05/30/2022 End: 09-09-2022 Dxa bone density study 1/> sites axial skel DXA-AXIAL SKELETON Radiology Routine Atherosclerosis Bilateral carotid artery stenosis Hiatal hernia Renal artery stenosis (HCC) RAJESH (generalized anxiety disorder) CAD, multiple vessel Neuralgia and neuritis 1 Occurrences starting 08/10/2021 until 09/09/2022 [facility] Work Phone: Comment on above: 1 Occurrences starting 08/10/2021 until 09/09/2022 ECG COMPLETE ECG COMPLETE ECG Routine Tachycardia 06/22/2022 4:26 PM EST [facility] Work Phone: End: 06-27-2023 Echocardiography ECHO Cardiology Routine Abnormal EKG 1 Occurrences starting 06/27/2022 until 06/27/2023 [facility] Work Phone: Comment on above: 1 Occurrences starting 06/27/2022 until 06/27/2023 METANEPHRINES 24H UR METANEPHRIN ES 24H UR Lab Routine Essential hypertension Ordered: 05/30/2022 [facility] Work Phone: Comment on above: Ordered: 05/30/2022 Patient Education [facility] Work Phone: Patient referral [facility] Work Phone: PT PLAN OF CARE CERTIFICATION PT PLAN OF CARE CERTIFICATION Procedures Routine Dizziness Lightheadedness Ordered: 07/19/2022 [facility] Work Phone: Comment on above: Ordered: 07/19/2022 End: 03-23-2023 PVR LEG RENETTA VAS LAB PVR LEG [facility]AS LAB Vascular Lab Routine Peripheral arterial disease (HCC) 1 Occurrences starting 03/23/2022 until 03/23/2023 [facility] Work Phone: Comment on above: 1 Occurrences starting 03/23/2022 until 03/23/2023 URINALYSIS, REFLEX MICROSCOPIC URINALYSIS, REFLEX MICROSCOPIC Lab Routine Screening for genitourinary condition Ordered: 03/23/2022 [facility] Work Phone: Comment on above: Ordered: 03/23/2022 End: 03-22-2023 US ABD AORTA COMPLETE VAS LAB US ABD AORTA COMPLETE VAS LAB Vascular Lab Routine PVD (peripheral vascular disease) (HCC) Renal artery stenosis ([facility]) Atherosclerosis 1 Occurrences starting 03/22/2022 until 03/22/2023 [facility] Work Phone: Comment on above: 1 Occurrences starting 03/22/2022 until 03/22/2023 End: 03-23-2023 US ABD AORTA COMPLETE VAS LAB US ABD AORTA COMPLETE VAS LAB Vascular Lab Routine Abdominal aortic aneurysm (AAA) without rupture, unspecified part NANCY (renal artery stenosis) ([facility]) Carotid stenosis, asymptomatic, bilateral 1 Occurrences starting 03/23/2022 until 03/23/2023 [facility] Work Phone: Comment on above: 1 Occurrences starting 03/23/2022 until 03/23/2023 End: 03-22-2023 US CAROTID ARTERIES R[facility]ETTA [facility] LAB US CAROTID ARTERIES [facility]ETTA [facility] Vascular Lab Routine Bilateral carotid artery stenosis 1 Occurrences starting 03/22/2022 until 03/22/2023 [facility] Work Phone: Comment on above: 1 Occurrences starting 03/22/2022 until 03/22/2023 End: 03-23-2023 US CAROTID ARTERIES [facility] US CAROTID ARTERIES [facility] Vascular Lab Routine Carotid stenosis, asymptomatic, bilateral 1 Occurrences starting 03/23/2022 until 03/23/2023 [facility] Work Phone: Comment on above: 1 Occurrences starting 03/23/2022 until 03/23/2023 End: 03-22-2023 US RENAL ARTERY [facility] US RENAL ARTERY [facility] Vascular Lab Routine Renal artery stenosis (HCC) 1 Occurrences starting 03/22/2022 until 03/22/2023 [facility] Work Phone: Comment on above: 1 Occurrences starting 03/22/2022 until 03/22/2023 End: 03-23-2023 US RENAL ARTERY [facility] US RENAL ARTERY [facility] Vascular Lab Routine NANCY (renal artery stenosis) (HCC) 1 Occurrences starting 03/23/2022 until 03/23/2023 [facility] Work Phone: Comment on above: 1 Occurrences starting 03/23/2022 until 03/23/2023 [facility] Immunizations Immunization Date Immunization Notes Care Provider [facility] 03-05-2009 novel [id number], preservative-free, injectable Renetta Aichholz C[employer]ER SERVICE [employer]PATCHER Work Phone: [facility] 03-05-2009 influenza virus vaccine, unspecified formulation Mikey Ware MD Work Phone: [facility] Work Phone: 07-09-1998 hepatitis B vaccine, adult dosage Renetta Aichholz CUSTOMER SERVICE DISPATCHER Work Phone: [facility] 02-01-1998 hepatitis B vaccine, adult dosage Renetta Aichholz CUSTOMER SERVICE DISPATCHER Work Phone: [facility] 01-01-1998 measles, mumps and rubella virus vaccine Renetta Aichholz CUSTOMER SERVICE DISPATCHER Work Phone: [facility] 12-28-1997 hepatitis B vaccine, adult dosage Renetta Aichholz CUSTOMER SERVICE DISPATCHER Work Phone: [facility] 12-25-1997 TD(adult) unspecifie d formulation Renetta Bellamycelso CUSTOMER SERVICE DISPATCHER Work Phone: [facility] Payers Date Payer Category Payer Self-pay [id number] 2022 Medicare MEDICARE MEDICAR E A [id number] 2022-Present [phone] [address] [place] [address] Medicare [id number] 2020 Unknown AN[employer]M BLUE CARD PPO OOS [id number] 2020-Present [phone] [address] [place] [address] PPO [id number] 2019 Unknown [id number] 1972 Unknown [id number] [id number] 1972 Unknown [id number] 2.16.840.1.843435.3.579.2.593 1972 Unknown [id number] 2.16.840.1.147206.3.579.2.593 1972 Unknown [id number] 2.16.840.1.804953.3.579.2.593 1972 Unknown [id number] 2.16.840.1.533382.3.579.2.593 1972 Unknown [id number] 2.16.840.1.834825.3.579.2.593 1972 Unknown [id number] 2.16.840.1.649758.3.579.2.593 1972 Unknown [id number] 2.16.840.1.199140.3.579.2.593 1972 Unknown [id number] 2.16.840.1.946908.3.579.2.593 1972 Unknown [id number] 2.16.840.1.843496.3.579.2.593 1972 Unknown [id number] 2.16.840.1.485094.3.579.2.593 1972 Unknown [id number] 2.16.840.1.842451.3.579.2.1244 1972 Unknown [id number] 2.16.840.1.106039.3.579.2.1259 1972 Unknown [id number] 2.16.840.1.143522.3.579.2.1259 1972 Unknown [id number] 2.16.840.1.841217.3.579.2.1259 1972 Unknown [id number] 2.16.840.1.987314.3.579.2.1259 1959 Unknown [id number] Medicare Medicare- Part A Only [id number] Unknown [facility] [id number] Unknown [id number] Social History Date Type Detail Facility Start: 04-21-2019 End: 08-19-2023 Tobacco smoking status NHIS Ex-smoker [facility] End: 12-22-2018 History of tobacco use Current smoker [facility] Start: 04-21-2019 End: 06-20-2023 Cigarettes smoked current (pack per day) - Reported 0.5 [facility] Start: 04-21-2019 End: 09-07-2023 Tobacco use and exposure Smokeless tobacco non-user [facility] Start: 08-10-2021 End: 06-20-2023 Alcohol intake Ex-drinker (finding) [facility] Start: 1970 Sex Assigned At Female C [facility] Start: 12-07-2019 End: 09-07-2023 Exposure to SARS-CoV-2 (event) Not sure [facility] End: 12-22-2018 History of tobacco use Cigarette Smoker [facility] Start: 04-07-2021 End: 06-20-2023 Sex Assigned At [facility] Adult Depression Screening Assessment 5 [facility] Start: 03-13-2021 Gender identity Identifies as female gender (finding) [facility] Start: 03-13-2021 Sexual orientation Heterosexual (fin ding) [facility] Start: 12-04-2019 Alcohol intake Current drinke r of alcohol (finding) [facility] Tobacco smoking status PRIS Tobacco smoking consumption unknown [facility] Start: 1972 Sex Assigned At Not on file [facility] Start: 06-20-2023 End: 09-07-2023 Tobacco smoking status PRIS Never smoked tobacco [facility] Start: 06-20-2023 Alcohol Comment caffine: once weekly [facility] NEGATED: Highlighted row [facility] NEGATED: Highlighted rowStart: SEANF History of tobacco use Passive smoker [facility] Work Phone: Medical Equipment Procedure Code Equipment Code Equipment Origin al Text Equipment Identifier Dates Multiple periphe ral artery stent, [id number] biliary stent [id number] FDA Start: 03-04-2019 Bare-metal carot id artery stent ()[id number] FDA Start: 03-04-2019 Clinical Notes 01-07-2020 to 09-07-2023 Mikey Ware MD - 09/07/2023 10:30 AM Shaheen Ridley NP - 06/20/2023 3:36 PM Clayton Ridley NP - 06/20/2023 3:35 PM Clayton Ridley NP - 06/20/2023 3:35 PM EST Note Date & Type Note Facility 09-07-2023 History of Present illness Narrative [facility] Note CC: prior stents HPI: Regla Prajapati is 52 y.o. female with history of aberrant right SCA, iliac stenosis. Prior smoker who quit 5 years ago. She reports mainly left arm weakness with exertion at times, not all the time. She has hip pain with walking, but no muscular pain and no rest pain in the feet. She has had prior right iliac stent for walking pains, and prior right CCA stent at the origin. She has not had a stroke or [place]. She said she had convulsions after her iliac stent was placed, possible reaction. She has known severe anxiety and autonomic dysfunction. Medical History: has no past medical history on file. Meds: Current Outpatient Medications on File Prior to Visit Medication Sig Dispense Refill ALPRAZolam (Xanax) 0.5 mg tablet Take 1 tablet (0.5 mg) by mouth 2 times a day as needed. cholecalciferol (Vitamin D-3) 25 MCG (1000 UT) tablet Take 1 capsule by mouth once daily. No current facility-administered medications on file prior to visit. Allergies: No Known Allergies SH: Social Determinants of Health Tobacco Use: Low Risk (09/07/2023) Patient History Smoking Tobacco Use: Never Smokeless Tobacco Use: Never Passive Exposure: Never Alcohol Use: Not At Risk (07/16/2023) Received from [facility] AUDIT-C Frequency of Alcohol Consumption: Never Average Number of Drinks: Patient does not drink Frequency of Binge Drinking: Never Financial Resource Strain: Low Risk (07/16/2023) Received from [facility] Overall Financial Resource Strain (CARDIA) Difficulty of Paying Living Expenses: Not very hard Food Insecurity: No Food Insecurity (07/16/2023) Received from [facility] Hunger Vital Sign Worried About Running Out of Food in the Last Year: Never true Ran Out of Food in the Last Year: Never true Transportation Needs: No Transportation Needs (07/16/2023) Received from [facility] PRAPARE - Transportation Lack of Transportation (Medical): No Lack of Transportation (Non-Medical): No Physical Activity: Not on file Stress: Stress Concern Present (07/16/2023) Re[facility] from [facility] [employer] [facility] Occupational Health - Occupational Stress Questionnaire Feeling of Stress : Very much Social Connections: Socially Isolated (07/16/2023) Received from [facility] Social Connection and Isolation Panel [NHANES] Frequency of Communication with Friends and Family: Once a week Frequency of Social Gatherings with Friends and Family: Once a week Attends Caodaism Services: Never Active Member of Clubs or Organizations: No Attends Club or Organization Meetings: Never Marital Status: Intimate Partner Violence: Not on file Depression: Not at risk (08/28/2023) Received from [facility] PHQ-2 Patient Health Questionnaire-2 Score: 2 Housing Stability: Low Risk (07/16/2023) Received from [facility] Housing Stability Vital Sign Unable to Pay for Housing in the Last Year: No Number of Places Lived in the Last Year: 1 Unstable Housing in the Last Year: No Utilities: Not on file Digital Equity: Not on file Health Literacy: Not on file FH: No family history on file. ROS: All systems were reviewed and are negative except as per HPI. Objective: Vitals: Vitals: 09/07/23 1012 BP: 118/72 Pulse: 69 Exam: In NAD, well appearing Abd Soft, ND/NT Vascular examination: Palpable bilateral radial pulses Palpable DP bilaterally with warm feet and no wounds Assessment & Plan: Regla Prajapati is 52 y.o. female with prior stents for possible claudication and asympotmatic stenosis including right CCA, and right SHY. She has no severe vascular related symptoms at this time. I will obtain upper and lower PVR and carotid duplex and call with result. I spent a total of 45 minutes on the day of the visit. Mikey Ware M.D. documented in this encounter [facility] Work Phone: 06-20-2023 History of Present illness Narrative Associated Problem(s): Generalized anxiety disorder with panic attacks (CMS/HCC) Will refer to new psychiatrist 1 month only of xanax to take prn anxiety Whatever psych provider orders for treatment is what pt will need to use, I will not continue xanax OARRS reviewed Associated Problem(s): PVD (peripheral vascular disease) (CMS/HCC) Hx of this, no statin Will recheck lipids Associated Problem(s): Hypertension, essential (CMS/HCC) Check labs, unsure about adding back meds Fu in 4 weeks Cardio for life 4000 mg Pt states she stopped taking everything else and that everything she was on before is in the cardioforlife. Started about 9 months ago. Pt needing a refill on the xanax 0.5mg Still warn out, SOB, body hurt and anxiety is even worse but she is no longer in the hospital or throwing from all the medications Images from the original note were not included. Regla Prajapati is a 52 y.o. female presents with chief complaint of No chief complaint on file. HPI: Has not been seen in almost a year, w multiple health issues, insomnia, htn, PVD, anxiety/depression Ultimately she stopped all her meds, as she felt that they were working against her and making her feel sicker She then started a supplement called Cardio for life and does feel better She does report fluctuations in her blood pressure with strenuous activity Hypertension This is a chronic problem. The current episode started more than 1 year ago. The problem has been waxing and waning since onset. Associated symptoms include anxiety, chest pain, palpitations, peripheral edema and shortness of breath. Pertinent negatives include no headaches. There are no associated agents to hypertension. Risk factors for coronary artery disease include dyslipidemia and stress. Past treatments include nothing. Anxiety Presents for follow-up visit. Symptoms include chest pain, depressed mood, irritability, nervous/anxious behavior, palpitations, panic and shortness of breath. Patient reports no dizziness, nausea or suicidal ideas. Symptoms occur most days. The severity of symptoms is moderate. SUBJECTIVE: MEDICATIONS: Current Outpatient Medications Medication Instructions ALPRAZolam (XANAX) 0.5 mg, Oral, 2 times daily PRN ALLERGIES: Allergies Allergen Reactions Amlodipine Bupropion GI intolerance Penicillins Venlafaxine GI intolerance REVIEW OF SYMPTOMS: Review of Systems Constitutional: Positive for irritability. Negative for appetite change, chills and fever. HENT: Negative for congestion, ear pain and sore throat. Eyes: Negative for pain, discharge, redness and visual disturbance. Respiratory: Positive for shortness of breath. Negative for cough and wheezing. Cardiovascular: Positive for chest pain and palpitations. Negative for leg swelling. Gastrointestinal: Negative for abdominal pain, blood in stool, constipation, diarrhea, nausea and vomiting. Genitourinary: Negative for difficulty urinating, dysuria and frequency. Musculoskeletal: Negative for arthralgias, back pain, joint swelling and myalgias. Skin: Negative for rash and wound. Neurological: Negative for dizziness, tremors, seizures, syncope and headaches. Psychiatric/Behavioral: Negative for behavioral problems, self-injury and suicidal ideas. The patient is nervous/anxious. Hematological: Does not bruise/bleed easily. Endocrine: Negative for polydipsia, polyphagia and polyuria. Allergic/Immunologic: Negative for environmental allergies and food allergies. PAST MEDICAL HISTORY Past Medical History: Diagnosis Date Abdominal pain Aberrant right subclavian artery Aortic atherosclerosis (CMS/HCC) Atherosclerosis, generalized Atrophic vaginitis Buzzing in ear, bilateral Chest pain Chronic pain disorder Cough in adult DDD (degenerative disc disease), cervical Depression, acute (CMS/HCC) Diverticulitis Elevated serum creatinine Enlarged thyroid (CMS/HCC) Fatigue Fibromyalgia Generalized anxiety disorder with panic attacks (CMS/HCC) GERD with esophagitis Hemorrhoids, unspecified hemorrhoid type History of intravascular stent placement History of thyroid cyst Hyperlipemia, mixed (CMS/HCC) Hypertension, essential (CMS/HCC) Hypothyroidism, adult (CMS/HCC) Irritable bowel syndrome with constipation Lower extremity edema Mixed incontinence [place] (obstructive sleep apnea) Panic disorder without agoraphobia (CMS/HCC) Rectal pain, chronic Retrolisthesis of vertebrae Syncope and collapse Thyroid nodule (CMS/HCC) Tobacco user Vaginal pain Vascular abnormality Vitamin D insufficiency White matter abnormality on MRI of brain Past Surgical History: Procedure Laterality Date ANAL SPHINCTEROTOMY Y-V anoplasty CT ANGIO HEAD 01/07/2020 CT ANGIO HEAD 01/07/2020 CT ANGIOGRAM NECK 01/07/2020 CT ANGIOGRAM NECK 01/07/2020 CT ANGIOGRAM NECK 11/27/2019 CT ANGIOGRAM NECK 11/27/2019 HEMORRHOID SURGERY MR ANGIOGRAM ABDOMEN W AND WO IV CONTRAST 04/29/2020 MR ANGIOGRAM ABDOMEN W AND WO IV CONTRAST 04/29/2020 MR ANGIOGRAM CHEST W AND WO IV CONTRAST 04/29/2020 MR ANGIOGRAM CHEST W AND WO IV CONTRAST 04/29/2020 MR ANGIOGRAM HEAD WO IV CONTRAST 01/26/2020 MR ANGIOGRAM HEAD WO IV CONTRAST 01/26/2020 TOTAL ABDOMINAL HYSTERECTOMY family history is not on file. OBJECTIVE: Visit Vitals BP (!) 144/98 (BP Location: Right arm, Patient Position: Sitting, BP Cuff Size: Adult long) Pulse 65 Temp 97.3 F (Temporal) Resp 18 Ht 5' 1 Wt 144 lb SpO2 98% BMI 27.21 kg/m Smoking Status Never BSA 1.68 m Physical Exam Vitals reviewed. Constitutional: General: She is not in acute distress. Appearance: Normal appearance. HENT: Head: Normocephalic and atraumatic. Right Ear: Tympanic membrane, ear canal and external ear normal. Left Ear: Tympanic membrane, ear canal and external ear normal. Nose: Nose normal. Mouth/Throat: Mouth: Mucous membranes are moist. Eyes: Extraocular Movements: Extraocular movements intact. Conjunctiva/sclera: Conjunctivae normal. Neck: Vascular: Carotid bruit (bilat) present. Cardiovascular: Rate and Rhythm: Normal rate and regular rhythm. Pulses: Normal pulses. Heart sounds: Normal heart sounds. Pulmonary: Effort: Pulmonary effort is normal. Breath sounds: Normal breath sounds. Abdominal: General: Bowel sounds are normal. There is no distension. Palpations: Abdomen is soft. There is no mass. Tenderness: There is no abdominal tenderness (generalized tenderness). Musculoskeletal: General: Normal range of motion. Cervical back: Neck supple. Right lower leg: No edema. Left lower leg: No edema. Skin: General: Skin is warm and dry. Capillary Refill: Capillary refill takes 2 to 3 seconds. Findings: No rash. Neurological: General: No focal deficit present. Mental Status: She is alert and oriented to person, place, and time. Psychiatric: Mood and Affect: Mood normal. Thought Content: Thought content normal. Judgment: Judgment normal. Comments: Slightly anxious ASSESSMENT AND PLAN: No follow-ups on file. Problem List Items Addressed This Visit Hypertension, essential (CMS/HCC) Check labs, unsure about adding back meds Fu in 4 weeks Relevant Orders Comprehensive metabolic panel Urinalysis with reflex microscopic (clean catch) Microalbumin / creatinine, urine ratio GERD with esophagitis Relevant Orders CBC and differential Comprehensive metabolic panel Vitamin D insufficiency Relevant Orders Comprehensive metabolic panel Vitamin D 25 hydroxy Hypothyroidism, adult ([facility]/HCC) Relevant Orders Comprehensive metabolic panel TSH T4, free Hyperlipemia, mixed ([facility]) Relevant Orders Comprehensive metabolic panel Lipid panel Generalized anxiety disorder with panic attacks ([facility]) Will refer to new psychiatrist 1 month only of xanax to take prn anxiety Whatever psych provider orders for treatment is what pt will need to use, I will not continue xanax OARRS reviewed Relevant Medications ALPRAZolam (Xanax) 0.5 MG tablet Other Relevant Orders Ambulatory referral to Behavioral Health PVD (peripheral vascular disease) ([facility]) Hx of this, no statin Will recheck lipids Relevant Orders Comprehensive metabolic panel Encounter for screening mammogram for malignant neoplasm of breast - Primary Relevant Orders Bilateral screening mammogram BMI 27.0-27.9,adult documented in this encounter [facility] 12-15-2022 Evaluation note Diagnosis Renovascular hypertension Secondary renovascular hypertension, unspecified Chronic renal failure, stage 3a (HCC) documented in this encounter [facility]04-28-2023 NoteHNO ID: [id number] Author: Karthik Zarate, DO Service: ? Author Type: Physician Type: Progress Notes Filed: 09/02/2022 12:40 PM Note Text: [facility] [place] New Patient Consultation to this clinic, previously seen by Dr EDUARDO, neurology, last 06/15/2021. September 01, 2022 HPI: Ms. Prajapati, who is accompanied by her father with her permission, presents today secondary to issues of dizziness and arachnoid cyst. She states that she has had random spells where she feels lightheadedness which can occur abruptly. In the time it occurs she can become nauseated. She denies spinning wit this. Rarely she can feel sharp electrical shock feeling in her head or down her body at times with the lightheadedness but also separate. With the lightheadedness spell these can occur when rolling and can have it with position changes. She finds abrupt position changes can cause the feeling. When the lightheadedness she can have the feeling for 30-60 seconds. She notes issues with her blood pressure and is seeing nephrology for this. She has had the feelings of lightheadedness over years. She has stents in several arteries including carotid artery just above the aortic arch and right iliac arteries. She feels the lightheadedness spells greatly increased in number after these stents were placed. She has had EEG after having twitching and was told this was negative for seizures. She takes a blood pressure cuff with her to be as her blood pressures drop as low as 70/40's after taking her evening blood pressure medications and in the daytime can reach as high as 180's systolic and checked a few minutes later 150's systolic. She admits she could be doing better in regards to hydration due to feelings of bloating. She feels she is not eating all that well, averaging 1-2 meals a day. She gives an example of a meal being a can of ravioli or cheese ball in the day. Other times she may only have dinner and no other meal all day long. She is not on a special diet and is eating protein/meats. She notes that when coughing, sneezing, or laughing she may have spell of lightheaded as well. She denies issues with vertigo but has had tinnitus and hearing loss. In regards to her workup she had a CTA head and neck 05/12/2022 PAST MEDICAL HISTORY Diagnosis Date Allergic rhinitis, cause unspecified Allergy, airborne subst Anxiety state Dyspareunia Essential hypertension Fibromyalgia Genital herpes, unspecified under control Genital herpes Irritable bowel syndrome Irritable bowel Other and unspecified ovarian cyst 5 y/a Ovarian cyst Peripheral vascular disease (HCC) extensive, S/p right carotid stent and right iliac artery stent Renal artery stenosis (HCC) right Varicella without mention of complication Chickenpox PAST SURGICAL HISTORY Procedure Laterality Date COLONOSCOPY FLX DX W/COLLJ SPEC WHEN PFRMD 04/07/02 Colonoscopy LAPS ABD PRTMANDOMENTUM DX W/WO SPEC BR/WA SPX 5 yrs ago Laparoscopy Current Outpatient Medications on File Prior to Visit Medication Sig buPROPion SR (WELLBUTRIN SR) 100 mg 12 hr tablet Take 1 tablet by mouth twice daily. lubiprostone (AMITIZA) 24 mcg capsule Take 1 tablet by mouth q 12 HR. meclizine (ANTIVERT) 12.5 mg tab Take 1 tablet by mouth as needed. promethazine (PHENERGAN) 25 mg tablet Take 1 tablet by mouth as needed. sucralfate (CARAFATE) 1 gram tablet Take 1 tablet by mouth as needed. pantoprazole DR (PROTONIX) 40 mg tablet Take 1 tablet by mouth q 12 HR. lisinopril 2.5 mg tablet Take 2 tablets by mouth every morning. And 1.25mg qpm terbinafine HCl (LAMISIL) 250 mg tablet Take 250 mg by mouth once daily. cloNIDine HCl (CATAPRES) 0.1 mg tablet Take 1 tablet by mouth every 8 hours as needed (take if systolic BP>170). SYNTHROID 50 mcg tablet conjugated estrogens (PREMARIN) vaginal cream tiZANidine HCl 4 mg capsule Take 4 mg by mouth twice daily as needed. ALPRAZolam (XANAX) 0.5 mg tablet Take 0.5 mg by mouth three times daily as needed. atorvastatin (LIPITOR) 40 mg tablet Take 1 tablet by mouth daily at bedtime. clopidogrel (PLAVIX) 75 mg tablet TAKE 1 TABLET BY MOUTH ONCE DAILY FOR 14 DAYS aspirin, enteric coated (ASPIRIN, ENTERIC COATED) 81 mg EC tablet Take 81 mg by mouth once daily. pantoprazole DR (PROTONIX) 40 mg tablet Take 40 mg by mouth once daily. naltrexone capsule 4.5 mg (CPD) Take 1 capsule by mouth once daily. buPROPion HCL 200 mg 12 hr tablet Take 200 mg by mouth twice daily. omeprazole (PRILOSEC) 20 mg capsule 40 mg once daily. ezetimibe (ZETIA) 10 mg tablet Take 1 tablet by mouth once daily. cholecalciferol (VITAMIN D) 1,000 unit tab tablet Take 1 capsule by mouth once daily. No current facility-administered medications on file prior to visit. Social History Tobacco Use Smoking status: Former Packs/day: 0.50 Years: 15.00 Pack years: 7.50 Types: Cigarettes Quit date: 12/22/2018 Years [facility] (more content not included)...[facility]04-28-2023 History of Present illness Narrative* Karthik Zarate, DO - 09/01/2022 11:50 AM EDT [facility] [place] New Patient Consultation to this clinic, previously seen by Dr EDUARDO, neurology, last 06/15/2021. September 01, 2022 HPI: Ms. Prajapati, who is accompanied by her father with her permission, presents today secondary to issues of dizziness and arachnoid cyst. She states that she has had random spells where she feels lightheadedness which can occur abruptly.In the time it occurs she can become nauseated. She denies spinning wit this. Rarely she can feel sharp electrical shock feeling in her head or down her body at times with the lightheadedness but also separate. With the lightheadedness spell these can occur when rolling and can have it with position changes. She finds abrupt position changes can cause the feeling. When the lightheadedness she canhave the feeling for 30-60 seconds. She notes issues with her blood pressure and is seeing nephrology for this. She has had the feelings of lightheadedness over years. She has stents in several arteries including carotid artery just above the aortic arch and right iliac arteries. She feels the lightheadedness spells greatly increased in number after these stents were placed. She has had EEG afterhaving twitching and was told this was negative for seizures. She takes a blood pressure cuff with her to be as her blood pressures drop as low as 70/40's after taking her evening blood pressure medications and in the daytime can reach as high as 180's systolicand checked a few minutes later 150's systolic. She admits she could be doing better in regards to hydration due to feelings of bloating. She feelsshe is not eating all that well, averaging 1-2 meals a day. She gives an example of a meal being a can of ravioli or cheese ball in the day. Other times she may only have dinner and no other meal reagan long. She is not on a special diet and is eating protein/meats. She notes that when coughing, sn eezing, or laughing she may have spell of lightheaded as well. She denies issues with vertigo but has had tinnitus and hearing loss. In regards to her workup she had a CTA head and neck 05/12/2022 PAST MEDICAL HISTORY Diagnosis Date Allergic rhinitis, cause unspecified Allergy, airborne subst Anxiety state Dyspareunia Essential hypertension Fibromyalgia Genital herpes, unspecified under control Genital herpes Irritable bowel syndrome Irritable bowel Other and unspecified ovarian cyst 5 y/a Ovarian cyst Peripheral vascular disease (HCC) extensive, S/p right carotid stent and right iliac artery stent Renal artery stenosis (HCC) right Varicella without mention of complication Chickenpox PAST SURGICAL HISTORY Procedure Laterality Date COLONOSCOPY FLX DX W/COLLJ SPEC WHEN PFRMD 04/07/02 Colonoscopy LAPS ABD PRTM&OMENTUM DX W/WO SPEC BR/WA SPX 5 yrs ago Laparoscopy Current Outpatient Medications on File Prior to Visit Medication Sig buPROPion SR (WELLBUTRIN SR) 100 mg 12 hr tablet Take 1 tablet by mouth twice daily. lubiprostone (AMITIZA) 24 mcg capsule Take 1 tablet by mouth q 12 HR. meclizine (ANTIVERT) 12.5 mg tab Take 1 tablet by mouth as needed. promethazine (PHENERGAN) 25 mg tablet Take 1 tablet by mouth as needed. sucralfate (CARAFATE) 1 gram tablet Take 1 tablet by mouth as needed. pantoprazole DR (PROTONIX) 40 mg tablet Take 1 tablet by mouth q 12 HR. lisinopril 2.5 mg tablet Take 2 tablets by mouth every morning. And 1.25mg qpm terbinafine HCl (LAMISIL) 250 mg tablet Take 250 mg by mouth once daily. cloNIDine HCl (CATAPRES) 0.1 mg tablet Take 1 tablet by mouth every 8 hours as needed (take if systolic BP>170). SYNTHROID 50 mcg tablet conjugated estrogens (PREMARIN) vaginal cream tiZANidine HCl 4 mg capsule Take 4 mg by mouth twice daily as needed. ALPRAZolam (XANAX) 0.5 mg tablet Take 0.5 mg by mouth three times daily as needed. atorvastatin (LIPITOR) 40 mg tablet Take 1 tablet by mouth daily at bedtime. clopidogrel (PLAVIX) 75 mg tablet TAKE 1 TABLET BY MOUTH ONCE DAILY FOR 14 DAYS aspirin, enteric coated (ASPIRIN, ENTERIC COATED) 81 mg EC tablet Take 81 mg by mouth once daily. pantoprazole DR (PROTONIX) 40 mg tablet Take 40 mg by mouth once daily. naltrexone capsule 4.5 mg (CPD) Take 1 capsule by mouth once daily. buPROPion HCL 200 mg 12 hr tablet Take 200 mg by mouth twice daily. omeprazole (PRILOSEC) 20 mg capsule 40 mg once daily. ezetimibe (ZETIA) 10 mg tablet Take 1 tablet by mouth once daily. cholecalciferol (VITAMIN D) 1,000 unit tab tablet Take 1 capsule by mouth once daily. No current facility-administered medications on file prior to visit. Social History Tobacco Use Smoking status: Former Packs/day: 0.50 Years: 15.00 Pack years: 7.50 Types: Cigarettes Quit date: 12/22/2018 Years since quittin.6 Smokeless tobacco: Never Substance Use Topics Alcohol use: Not Currently Alcohol/week: 1.7 standard drinks Drug use: No ALLERGIES Allergen Reactions Amlodipine Swelling BLE swelling Penicillins Review of Systems: See HPI for pertinent positives. Physical Exam: 09/01/22 1140 09/01/22 1146 09/01/22 1147 09/01/22 1150 BP: 103/71 114/82 114/82 Orthostatic BP: 108/71 BP Site: Left Arm Left Arm Left Arm Left Arm BP Position: Sitting Supine Standing Standing BP Cuff Size: Regular Adult Regular Adult Regular Adult Regular Adult Pulse: 73 73 73 Orthostatic Pulse: 73 Patient is alert and in no distress. Dress is appropriate. Mood is appropriate Heart is regular rate and rhythm with no murmur or bruit auscultated Breathing appears regular and unstressed Neurologic examination: Cognitively intact. No deficits. No formal MMSE performed. CN: Pupils equal and reactive to light, extraocular movements intact with no nystagmus, face is symmetric with no facial droop, facial sensation intact bilaterally to light touch V1-3, hearing intactbilaterally, shoulder shrug is symmetric Ophthalmologic exam: Fundis is sharp with no evidence of edema noted. Motor exam shows 5/5 strength symmetric through the upper and lower extremities in all groups tested Sensory intact to light touch and temperature in all extremities. Vibratory sensation is intact andsymmetric all extremities Deep tendon reflexes are symmetric at the biceps, brachioradialis, triceps, patella, and Achilles bilaterally Luciano's responses are both flexion. Coordination: No dysmetria on finger to nose. No tremors noted. No drift seen Gait normal in stance and pattern. Labs/studies: CT brain without contrast CTA head and neck with contrast reports 05/11/2022 noting 1. Right common carotid artery stent. 2. No prominent plaque or hemodynamically significant stenosis. In the body of the report there is incidental note made of either prominent cisterna magna or posterior fossa arac hnoid cyst. Personally reviewed these images and reviewed them with her noting prominent CSF fluid collection in the posterior fossa with no obvious mass effect on the brainstem. MRI brain 02/03/2020 reviewed noting similar changes in the posterior fossa, best seen on sagittal/physician representative images. MRI Report - Impression Only MRI BRAIN W IVCON (CALL BACK) Exam End: 02/03/2020 4:24 PM (Final result) Impression: IMPRESSION: No acute findings or abnormal intracranial enhancement, specifically no evidence of an acute infarct. No perfusion abnormality. Skin Former: PSCB Transcribe Date/Time: Feb 03 2020 4:25P Dictated by : ADIA ALFRED MD This examination was interpreted and the report reviewed and electronically signed by: ADIA ALFRED MD on Feb 03 2020 4:31PM EST Assessment: R42 Dizziness (primary encounter diagnosis) Comment: as via description favor orthostatic hypotension noting very labile blood pressure, atherosclerotic disease and previous stent placement . G93.0 Arachnoid cyst Comment: posterior fossa likely arachnoid cyst given location. Feel terence custerna magna unlikely, This is most likely congenital and has been present on previous imaging comparisons including CT brain of 2018, MRI brain of 2019. PLAN: Chart reviewed including previous/interval progress notes, messages, recent imaging, and laboratoryresults. 2. Discussed options with the patient and after discussion she elects to the below. 3. Asked to stay better hydrated, eat more consistently including regular protein and meals (protein supplements/drinks if needed) and take time (2 minutes) with position changes to help avoid orthostatic hypotension. 4. Discussed and reviewed brain images from [id number] (what was available) and note no changes in arachnoid cyst over time and that likely is benign/congenital finding. May be further followed up with imaging over time (would be included in CTA head done for arterial issues). 5. No medication changes at this time noting several changes being made in regards to blood pressure medications. Consideration for SSRI or mestinon for regulation of blood pressure. 6. As via discussion with her will leave follow-up here as needed. Thank you for allowing me to see this patient if there are any question or concerns please feel free to contact me at my clinic. Sincerely, Karthik Zarate D.O. [facility] NoteHNO ID: [id number] Author: Isha Ashwin PT Service: ? Author Type: Physical Therapist Type: Progress Notes Filed: 07/27/2022 2:16 PM Note Text: Episode Visit Count: 2 Therapist That Will Accept/Oversee The Plan Of Care: Isha Smith Start of Care Date: 07/19/22 Plan of Care Certification Date: 07/19/22 Next Certification Due Date: 10/17/22 Patient Identified by Name and Date of : Yes [facility] PHYSICAL THERAPY TREATMENT NOTE ASSESSMENT: Regla Prajapati tolerated the session with fatigue. She demonstrated difficulty with cervicothoracic mobility and strength. Dizziness un unknown etiology (not vestibular per battery test) (cervical assessments equivocal), concern for CV origin, vs. Migrainous origin. She shows weakness of DCF and scap stabilizers. The patient will continue to benefit from ongoing skilled physical therapy to progress toward set goals. Current Frequency: 1x every other week Duration: 6 weeks Total Number of Visits Planned: 3 Planned Treatment Interventions: Therapeutic exercise (42466), Neuromuscular re-education (43948), Manual therapy (37653), Therapeutic activities (25645), Self-longterm management (23238), Patient/Family/Caregiver Education, Canalith Repositioning Maneuvers ([id number]) PLAN FOR NEXT VISIT: Assess response to cervical exercise, progress. Consider adding habituation or balance. SUBJECTIVE: Reports she gets moreso of a LH and feels like she is going to faint, has to sit down, gets really hot. Mainly with activity, stress, looking up, or stooping down then goes to stand up. Usually pretty quick, but aftereffect takes a while to go away. Sometimes nausea and vomit. Circulation, heart problems, anxiety. Recent testing found an issue with her left ventricle, and concerned this could be causing some of her symptoms. Has stenosis t/o whole body. Very frustrated by the medical world, feels she has not been listened to. Has stenosis in Carotids, cannot see Chiropractor. Has cyst on back of brain, has neurology appointment. Has brain zaps like a feeling of electricity going through her head where things go black and makes her nauseated. Comes more with stress. Speaks very quickly, highly anxious regarding all of her medical issues. Sometimes head just feels too heavy for my neck Arms go numb and hands cramp when trying to do things. Pain: Pain Pain Level: 3 Pain Location: (Stiffness and knots) Description: Stiffness Frequency: Continuous OBJECTIVE MEASURES WITH LEVEL OF FUNCTION: Spine Observations R Cervical Spine Palpation Tenderness: Upper trapezius, Sternocleidomastoid, Suboccipitals L Cervical Spine Palpation Tenderness: Upper trapezius, Sternocleidomastoid Cervical Spine ROM Cervical Retraction AROM: Normal Cervical Flexion AROM: Normal Cervical Extension AROM: Moderate limitation Cervical Side-Bend Right AROM: Minimal limitation Cervical Side-Bend Left AROM: Minimal limitation Cervical Rotation Right AROM: Normal Cervical Rotation Left AROM: Normal Additional AROM: Thoracic Spine Movement Loss Thoracic Extension: Major Limitation Thoracic Rotation Right: Normal Thoracic Rotatoin Left: Normal Spine Joint Mobility Joint Mobility Comment: Tightness noted RENETTA UT and Lat Gross Segmental Mobility: WNL Upper Cervical Rotation : WNL (increased pain UT area) Upper Cervical Flexion: WNL (increased pain UT area) UE and Cervical Strength R UE Strength: Scap Stabs: 4-/5 L UE Strength: Scap Stabs: 4-/5 Special Tests - Cervical Cervical Special Tests: Vibration Testing, 1st Rib Mobility, Cervical Distraction Cervical Distraction: Negative Vibration Testing: No reproduction of dizziness 1st Rib Mobility: WNL Gait Gait Observation: no LOB noted. TREATMENT: Therapeutic Exercise: 1: Neck and t/s assessments as above. 2: Education on potential cervical role in balance, though suspect low likelihood given exam today. Sx seem likely more CV in nature. 3: *SCM self Massage 1 min each side (1x daily) 4: *OH Roccos x 10, cues for technique (2x daily) 5: * UT self stretch 10-15s holds RENETTA (3 reps each side 2x daily) 6: *OA nods wall slides 5s holds x 10 (1-2x daily) 7: *SASH The Side Pull yellow t-band x 10, 3x weekly. Skilled Intervention: Patient was educated in proper exercise technique and purpose for exercises. Patient Self-Senior Care Management: 1: Vestibular Battery results education Skilled Intervention: Reviewed patient specific diagnosis in relation to activities of daily living/home management. Home Exercise Program Assigned: 1: *SCM self Massage 1 min each side (1x daily) 2: *OH Roccos x 10, cues for technique (2x daily) 3: * UT self stretch 10-15s holds RENETTA (3 reps each side 2x daily) 4: *OA nods wall slides 5s holds x 10 (1-2x daily) 5: *SASH The Side Pull yellow t-band x 10, 3x weekly. Billing Therapeutic Exercise Treatment Minutes: 45 (more content not included)... [facility]03-23-2023 History of Present illness Narrative* Isha Smith, PT - 07/27/2022 1:03 PM EDT Episode Visit Count: 2 Therapist That Will Accept/Oversee The Plan Of Care: Isha Smith Start of Care Date: 07/19/22 Plan of Care Certification Date: 07/19/22 Next Certification Due Date: 10/17/22 Patient Identified by Name and Date of : Yes REHABILITATION AND SPORTS THERAPY PHYSICAL THERAPY TREATMENT NOTE ASSESSMENT: Regla Prajapati tolerated the session with fatigue. She demonstrated difficulty with cervicothoracic mobility and strength. Dizziness un unknown etiology (not vestibular per battery test)(cervical assessments equivocal), concern for CV origin, vs. Migrainous origin. She shows weakness of DCF and scap stabilizers. The patient will continue to benefit from ongoing skilled physical therapy to progress toward set goals. Current Frequency: 1x every other week Duration: 6 weeks Total Number of Visits Planned: 3 Planned Treatment Interventions: Therapeutic exercise (02621), Neuromuscular re- education (53722), Manual therapy (81702), Therapeutic activities (11172), Self- longterm management (55072), Patient/Family/Caregiver Education, Canalith Repositioning Maneuvers (84751) PLAN FOR NEXT VISIT: Assess response to cervical exercise, progress. Consider adding habituation or balance. SUBJECTIVE: Reports she gets moreso of a LH and feels like she is going to faint, has to sit down, gets really hot. Mainly with activity, stress, looking up, or stooping down then goes to stand up. Usually pretty quick, but aftereffect takes a while to go away. Sometimes nausea and vomit. Circulation, heart problems, anxiety. Recent testing found an issue with her left ventricle, and concerned this could be causing some of her symptoms. Has stenosis t/o whole body. Very frustrated by the medical world, feels she has not been listened to. Has stenosis in Carotids, cannot see Chiropractor. Has cyst on back of brain, has neurology appointment. Has brain zaps like a feeling of electricity going through her head where things go black and makesher nauseated. Comes more with stress. Speaks very quickly, highly anxious regarding all of her medical issues. Sometimes head just feels too heavy for my neck Arms go numb and hands cramp when trying to do things. Pain: Pain Pain Level: 3 Pain Location: (Stiffness and knots) Description: Stiffness Frequency: Continuous OBJECTIVE MEASURES WITH LEVEL OF FUNCTION: Spine Observations R Cervical Spine Palpation Tenderness: Upper trapezius, Sternocleidomastoid, Suboccipitals L Cervical Spine Palpation Tenderness: Upper trapezius, Sternocleidomastoid Cervical Spine ROM Cervical Retraction AROM: Normal Cervical Flexion AROM: Normal Cervical Extension AROM: Moderate limitation Cervical Side-Bend Right AROM: Minimal limitation Cervical Side-Bend Left AROM: Minimal limitation Cervical Rotation Right AROM: Normal Cervical Rotation Left AROM: Normal Additional AROM: Thoracic Spine Movement Loss Thoracic Extension: Major Limitation Thoracic Rotation Right: Normal Thoracic Rotatoin Left: Normal Spine Joint Mobility Joint Mobility Comment: Tightness noted RENETTA UT and Lat Gross Segmental Mobility: WNL Upper Cervical Rotation : WNL (increased pain UT area) Upper Cervical Flexion: WNL (increased pain UT area) UE and Cervical Strength R UE Strength: Scap Stabs: 4-/5 L UE Strength: Scap Stabs: 4-/5 Special Tests - Cervical Cervical Special Tests: Vibration Testing, 1st Rib Mobility, Cervical Distraction Cervical Distraction: Negative Vibration Testing: No reproduction of dizziness 1st Rib Mobility: WNL Gait Gait Observation: no LOB noted. TREATMENT: Therapeutic Exercise: 1: Neck and t/s assessments as above. 2: Education on potential cervical role in balance, though suspect low likelihood given exam today.Sx seem likely more CV in nature. 3: *SCM self Massage 1 min each side (1x daily) 4: *OH Roccos x 10, cues for technique (2x daily) 5: * UT self stretch 10-15s holds RENETTA (3 reps each side 2x daily) 6: *OA nods wall slides 5s holds x 10 (1-2x daily) 7: *SASH The Side Pull yellow t-band x 10, 3x weekly. Skilled Intervention: Patient was educated in proper exercise technique and purpose for exercises. Patient Self-Senior Care Management: 1: Vestibular Battery results education Skilled Intervention: Reviewed patient specific diagnosis in relation to activities of daily living/home management. Home Exercise Program Assigned: 1: *SCM self Massage 1 min each side (1x daily) 2: *OH Roccos x 10, cues for technique (2x daily) 3: * UT self stretch 10-15s holds RENETTA (3 reps each side 2x daily) 4: *OA nods wall slides 5s holds x 10 (1-2x daily) 5: *SASH The Side Pull yellow t-band x 10, 3x weekly. Billing Therapeutic Exercise Treatment Minutes: 45 Self-Care/Home Management Treatment Minutes: 8 Total Treatment Time Minutes (timed/untimed): 53 Isha Smith PT [facility] NoteHNO ID: [id number] Author: WESTON Reza Service: ? Author Type: Service Clerk Type: Progress Notes Filed: 07/26/2022 3:59 PM Note Text: [facility] [place] [facility] Laboratory Vestibular Test Battery Report Name: Regla Prajapati [facility]#: [id number] Date of Service: 07/26/2022 Date of : 1970 Age: [age] year old Referred by: Fabien Gonzalez PA-C And is a patient of Renetta Ridley CNP, QUINTEN Referred for: Evaluation of suspected change in hearing, tinnitus, or balance. Referral documented: In an order in [facility] Pretest Instructions: The following pretest instructions were not completed prior to testing: Patient took Xanax this morning, she takes daily for the last 3-4 years. Impressions and Recommendations OVERALL IMPRESSIONS: Essentially Normal vestibular evaluation. Overall low likelihood of active inner ear balance system contributors to patient's symptoms. Regla Prajapati presents with dizziness described as lightheadedness and extreme unsteadiness. Symptoms began in 2019, with the most recently experienced symptoms occurring yesterday. Symptoms are worse since onset. Symptoms last for seconds in duration and occur sporadically. Sharon reports she experiences nausea after the dizziness lasts for a few hours in duration. Symptoms are provoked by riding in the car, stress, taking a shower, washing dishes and looking up. Associated symptoms include nausea, hot flashes blurred vision, double vision, light sensitivity, sound sensitivity, neck pain, weakness and confusion/memory issues. Symptoms are alleviated by lying down and resting. Regla denies recent head or neck injury. Regla denies any history of headaches or migraines. Regla has fallen multiple times in the past year. However, Sharon denies any significant injuries with the falls. She is restricting activities due to symptoms. Regla has participated in vestibular rehabilitation to help address current symptoms. Other relevant medical history includes peripheral vascular disease, essential hypertension, atherosclerosis, renal artery stenosis, hyperlipidemia, asymmetric SNHL (left ear slightly worse), bilateral tinnitus, PTSD and bilateral carotid artery stenosis. Today's evaluation revealed the following: There were essentially no indications of peripheral vestibular system pathway involvement noted. Normal investigation of superior and inferior vestibular nerve function via examination of the semicircular canals. Please note the following: could not compare interaural amplitude difference between cVEMP responses because responses could not be obtained in each ear with the same form of stimulation (bone vs air conduction.) Also, N1 latency was delayed in the right ear, which could indicate retrolabyrinthine/central impairments localized to the vestibulospinal tract. However, I do not feel like these possible abnormalities are correlated with patient symptoms. Patient had normal responses (robust and symmetrical) responses to caloric irrigations and rotational chair testing. There were no subjective or objective indications of Benign Paroxysmal Positional Vertigo (BPPV). Normal oculomotor examination. Normal observation of gait and transfers. RECOMMENDATIONS: * Continue medical follow-up with Fabien Gonzalez PA-C. * Continue with scheduled Vestibular AND Balance therapy (Physical Therapy) to help reduce symptoms with a focus on neck mobility/pain and fall risk prevention. * Consider re-evaluation as medically indicated * Maintain a healthy sleep schedule in addition to diet, hydration, and exercise to help body function overall. The results and recommendations were explained to Regla Guillermo Alo and she expressed understanding of the information. History Present Illness SUMMARY OF PAST MEDICAL HISTORY: Encounter with Fabien Gonzalez on 07/12/2022: Dizziness Lightheadedness Asymmetrical sensorineural hearing loss (primary encounter diagnosis) Tinnitus, bilateral Arachnoid cyst - Consult to Neurology for further evaluation of dizziness, CT findings - Discussed consult to Vestibular PT, Vestibular Test Battery for further evaluation; patient elects Vestibular Test Battery, wishes to find more definitive etiology of symptoms 51 year old female presents to clinic for evaluation of buzzing in ears. Patient reports 6-12 months of buzzing (left ear worse than right ear). Patient reports burst of dizziness, lightheadedness onset with sudden movements of head or neck, looking upward, stooping over (example: at grocery store, reaching into laundry machine). Episodes last a few seconds and resolve on their own, however, patient reports aftershock including nausea that lingers until she vomits, sometimes most of the day. Patient unsure about changes in hearing, tinnitus during episodes. Encounter with PT on 07/19/2022: Regal Prajapati presents with chief (more content not included)...[facility]03-22-2023 Instructions* Patient Instructions* Carmen Lombardi, WESTON - 07/26/2022 2:16 PM EDT [facility] [place] [facility] For the body to feel balanced, the brain requires input from inner ear organs, eyes, muscles, and joints. Symptoms of dizziness, imbalance, vertigo, or lightheadedness may have many different causes.These symptoms may be due to problems associated with your inner ear, vision, brain, heart, medications, or other health conditions. Today you completed a comprehensive evaluation of your ear vestibular balance system. Our vestibular system involves 3 semicircular canals (our head rotation sensors), 2 otolith organs (our gravity sensors), and our vestibular nerve. Test Summary: The purpose of today's evaluation was to assess for any peripheral, or inner ear involvement for the symptoms you have been experiencing. Based on today s evaluation, your vestibular system appears to be essentially normal. Overall low likelihood of active inner ear balance system contributors to your symptoms. Recommendations: * Continue medical follow-up with Fabien Gonzalez PA-C. * Continue with scheduled Vestibular & Balance therapy (Physical Therapy) to help reduce symptoms. * Consider re-evaluation as medically indicated * Maintain a healthy sleep schedule in addition to diet, hydration, and exercise to help your body function overall. Falling Risk: Dizziness, vertigo and/or imbalance are symptoms that raise concern for falling risk. Below are some tips to reduce falls: Install night lights; always turn on a light before entering a room. Keep walkways well lit. Remove home hazards such as floor throw rugs, loose electrical cords, stools or other small pieces of furniture that can trip people, and all floor clutter. Change positions or turn slowly and have something nearby to hold onto. Keep medical conditions under control by taking prescribed medications and/or following a prescribed diet. Learn to practice exercises that can improve balance, such as Darryl Chi or yoga. Wear low-heeled shoes, walking shoes, or other flexible shoes with good traction Always use handrails when walking up and down stairs. Discuss with a health care provider any concerns you have about falls, or if you experience a fall. documented [facility] History of Present illness Narrative* WESTON Reza - 07/26/2022 12:30 PM EDT [facility] [place]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 COMMUNICATION: The patient speaks with a normal, clear voice without hoarseness. No stridor or stertor. Hearing is grossly normal OVERALL FACIAL APPEARANCE: No obvious scars, lesions, or masses EYES: Extraocular muscles are intact, no diplopia on primary gaze EARS: Externally normal in appearance, without scars, lesions, masses, or tenderness. Right EAC: patent; no swelling, redness, or obstruction R TM: visualized and intact; pearly harden and translucent, landmarks undistorted; no fluid behind TM R Pneumotoscopy: TM is mobile Left EAC: patent; no swelling, redness, or obstruction L TM: visualized and intact; pearly harden and translucent, landmarks undistorted; no fluid behind TM L Pneumotoscopy: TM is mobile NOSE: Externally normal in appearance, without scars, lesions, or masses. There is no tenderness with percussion over the paranasal sinuses. Nasal passageways are patent. The mucosa is pink and moistwithout lesions, visible turbinates grossly normal on anterior rhinoscopy. Septum is midline. ORAL CAVITY AND OROPHARYNX: Teeth are in poor repair and nontender. Uvula midline. Gag reflex intact. NECK: The neck appears symmetric without scars and on palpation is without masses or lymphadenopathy. Trachea is midline and mobile. Full range of motion without symptoms. LYMPH NODES: No masses or tenderness. No submental, submandibular, tonsillar, preauricular, posterior auricular, occipital, or parotid adenopathy MSK: TMJ joint palpated and revealed no crepitation, but mild TTP bilaterally NEURO: Patient is Alert and Oriented to person, place, time, and situation. Cranial nerves II-XII grossly intact RESPIRATORY: Breathing comfortably, no evidence accessory muscle use, no intercostal retractions CV: Strong carotid artery pulse with no bruit RADS: None LABS: Relevant labs were reviewed and discussed with patient. OUTSIDE RECORDS: CT Brain, CTA Head and Neck 05/11/2022: CT BRAIN WITHOUT CONTRAST: COMPARISON: None TECHNIQUE: Contiguous axial unenhanced images were obtained through the brain. This CT exam was performed using one or more following dose reduction techniques: Automated exposure control, adjustment of the mA and/or kV according to patient size, or use of iterative reconstruction technique. FINDINGS: The ventricles are normal in size and position. There are no areas of abnormal attenuation. There is no hemorrhage or mass effect. There is either a prominent cisterna magna or posterior fossa arachnoid cyst. The imaged paranasal sinuses are clear. CT/CT head/brain wo con IMPRESSION: NO ACUTE INTRACRANIAL ABNORMALITY. CTA OF THE HEAD AND NECK WITH CONTRAST COMPARISON: None Spiral images were obtained through the head and neck following 90 mL Isovue- 370. Sagittal and coronal MIP as well as 3-D volume rendered reconstructions of the carotid arteries and wiyot of [place] were reviewed. Stenosis is evaluated using NASCET criteria. This CT exam was performed using one or more following dose reduction techniques: Automated exposure control, adjustment of the mA and/or kV according to patient size, or use of iterative reconstruction technique. There is an aberrant right subclavian artery. The right common carotid artery arises from the arch and there appears to be stent at that site. There is plaque at the proximal great vessels with some associated narrowing, greatest at the left subclavian. There is minor plaque at the origin of the right vertebral artery. The vertebral arteries are similar in caliber. There is no focal stenosis or suspected dissection. No carotid plaque is seen on the right though there is minimal plaque at the bifurcation and proximal internal carotid artery on the left. There is no significant associated stenosis. A few shotty cervical lymph nodes are seen. There is reversal of the normal cervical curvature with minor degenerative change. There is a 3 mm hypodense right thyroid nodule. The upper imaged lungs show no contributory findings. The distal vertebral artery on the left tapers before the confluence. The basilar artery is relatively small. The posterior cerebral arteries are patent with origin noted. There is no prominent carotid siphon plaque. The anterior and middle cerebral arteries are patent. The A1 segment of the right is slightly smaller in caliber than the left. There is no focal stenosis or suspected thrombosis. No aneurysms are identified. The left maxillary sinus is nearly opacified. IMPRESSION: RIGHT COMMON CAROTID ARTERY STENT. NO PROMINENT PLAQUE OR HEMODYNAMICALLY SIGNIFICANT STENOSIS. PROCEDURE: None Fabien Gonzalez PA-C [facility] Medical Decision Making: Problems: Moderate: 2+ stable chronic illnesses Data: Unique test(s) ordered: 1 Risk: Moderate: Moderate risk from testing/treatment Medical Decision Making Level: 4 - Moderate [facility] History of Present illness Narrative* Weston Cotton, CCC-A - 07/12/2022 10:14 AM EST Head and Neck [place] AUDIOLOGIC EVALUATION REPORT Name: Regla Prajapati CC#: [id number] Date of Service: 07/12/2022 Date of : 1970 Age: [age] year old Referred by: Fabien Gonzalez [address] [facility] [id number] Referred for: Evaluation of the cause of disorder of hearing, tinnitus, or balance. Referral documented: In an order in [facility] Patient's major complaints: Complaints of recent history of constant tinnitus buzzing type noise left ear greater than the right ear. Sharon reported a history of episodes of dizziness with changes inposition. She feels the dizzy episodes are becoming more frequent and she has nausea and lightheadedness. The patient said the dizziness occurs when she turns her head, when she looks up or if she owen down and then returns to an upright position. She denies URI, COVID. Sharon feels overall her hearing is satisfactory but does notice some problem on the phone. Regla Prajapati was seen for an initial audiologic evaluation. See SmartForm Audiogram for additional reported history and symptoms. IMPRESSIONS RIGHT EAR: Sensorineural hearing loss consistent with presbycusis LEFT EAR: Sensorineural hearing loss AUDIOLOGIC EVALUATION Following is a brief interpretation of the obtained findings from the audiologic evaluation. Refer to the Auditory Test Record for complete audiometric results. The patient was counseled about the test findings and appropriate audiologic recommendations were made. SUMMARY: Audiogram can be viewed under Forms/Audiology/SmartForm.\ OTOSCOPY RIGHT EAR: Otoscopic inspection revealed clear ear canal, Tympanic Membrane intact with an identifiable cone of light. LEFT EAR: Otoscopic inspection revealed clear ear canal, Tympanic Membrane intact with an identifiable cone of light. TYMPANOMETRY Description of procedure: This test is an objective evaluation of middle ear function. CPT code: 43223 RIGHT EAR: Normal ME pressure and TM compliance (mobility). LEFT EAR: Normal ME pressure and TM compliance (mobility). ACOUSTIC REFLEXES Description of procedure: This test is an objective measure of auditory and facial nerve pathways. CPT code: 33292, 75864 RIGHT EAR PROBE EAR: (ipsi right stimulus ear; contralateral left stimulus ear): Acoustic Reflex Pattern Did not test Acoustic Reflex Decay (left stimulus ear): Did not test. LEFT EAR PROBE EAR: (ipsi left stimulus ear; contralateral right stimulus ear): Acoustic Reflex Pattern Did not test Acoustic Reflex Decay (right stimulus ear):Did not test. PURE TONE AUDIOMETRY AND SPEECH TESTING Description of procedure: This test is an objective evaluation hearing sensitivity via air and boneconduction and speech recognition testing. CPT code:69477 RIGHT EAR: Hearing Sensitivity: Hearing sensitivity within normal limits to 2K Hz sloping to a mild High Frequency Sensorineural Hearing Loss. Word Recognition Score: Excellent (100%). WRS is consistent with hearing sensitivity. Words were presented at 50 dB HL is above (greater than or equal to 60 dB HL) intensity level for average conversational speech. The NU-6 Ordered by Difficulty Word List (10 words) was used for testing. LEFT EAR: Hearing Sensitivity: Mild Sensorineural Hearing Loss above 1K Hz. Word Recognition Score: Excellent (100%). WRS is consistent with hearing sensitivity. Words were presented at 60 dB HL is above (greater than or equal to 60 dB HL) intensity level for average conversational speech. The NU-6 Ordered by Difficulty Word List (10 words) was used for testing. RECOMMENDATIONS 1. ENT follow-up with Fabien Gonzalez PA-C, [facility] scheduled today. Also, Sharon will need medical clearance for amplification. 2. The patient is an appropriate candidate for amplification pending medical clearance. Patient advised/counseled. Sharon will return for a Hearing Needs Assessment appointment, if she wants to proceed with obtaining hearing aids through [facility]. 3. Annual recheck. 4. Hearing conservation. 5. The patient was counseled and given written information regarding effective communication strategies to enhance communication ability. 6. The patient was counseled and given written educational information re: the relationship betweenhearing loss and tinnitus, as well as, other common causes of tinnitus and options for tinnitus management. Beni Cotton, CCC/A Clinical Service Clerk GROVES Abbrev- iation Definition Degree of hearing sensitivity dB range WNL within normal limits WNL 0 - 20 SNHL sensorineural hearing loss Mild 20-40 CHL conductive hearing loss Moderate 40-55 MHL mixed hearing loss Moderately-Severe 55-70 WRS word recognition score Severe 70-90 ME middle ear Profound 90 + TM tympanic membrane [facility] Evaluation note* Encounter Date Diagnosis Assessment Notes Treatment Notes Treatment Clinical Notes Jul, Constipation (ICD-10 - K59.00) [facility] Other 02-28-2023 Miscellaneous Notes* Telephone Encounter - Ting Camilo MD - 07/04/2022 1:54 PM EST I called lAo Martines to review 24hr ABPM results. Mild intermittent BP elevations during the day, trended up by evening. Took 5mg lisinopril at midnight. At 2am, her BP dropped down as low as 59 systolic by 5am, did not recover until after noon. This has been a patterrn with her, dropping BP after evening lisinopril. She only takes the am lisinopril if her systolic is >120, but she does not get the hypotensive response then. Has needed amdose 2x/week, but last week needed it 5 times. Will adjust dosing to 5mg qam, 2.5mg qpm, she will send back BP's next week. Ting Camilo MD [facility] NoteHNO ID: [id number] Author: Robert Gramajo MD Service: ? Author Type: Physician Type: Progress Notes Filed: 06/29/2022 3:34 PM Note Text: Ambulatory Blood Pressure Monitoring (ABPM) Report Patient: Regla Prajapati : 1970 Referring Physician: Ting Camilo MD Date of Recordin06/22/22 Patient?s current medications as in EPIC at time of report: terbinafine HCl (LAMISIL) 250 mg tablet Take 250 mg by mouth once daily. lisinopril (ZESTRIL, PRINIVIL) 10 mg tablet Take 1 tablet by mouth twice daily. cloNIDine HCl (CATAPRES) 0.1 mg tablet Take 1 tablet by mouth every 8 hours as needed (take if systolic BP>170). pantoprazole DR (PROTONIX) 40 mg tablet Take 40 mg by mouth once daily. SYNTHROID 50 mcg tablet conjugated estrogens (PREMARIN) vaginal cream naltrexone capsule 4.5 mg (CPD) Take 1 capsule by mouth once daily. tiZANidine HCl 4 mg capsule Take 4 mg by mouth twice daily as needed. buPROPion HCL 200 mg 12 hr tablet Take 200 mg by mouth twice daily. ALPRAZolam (XANAX) 0.5 mg tablet Take 0.5 mg by mouth three times daily as needed. omeprazole (PRILOSEC) 20 mg capsule 40 mg once daily. ezetimibe (ZETIA) 10 mg tablet Take 1 tablet by mouth once daily. atorvastatin (LIPITOR) 40 mg tablet Take 1 tablet by mouth daily at bedtime. clopidogrel (PLAVIX) 75 mg tablet TAKE 1 TABLET BY MOUTH ONCE DAILY FOR 14 DAYS aspirin, enteric coated (ASPIRIN, ENTERIC COATED) 81 mg EC tablet Take 81 mg by mouth once daily. cholecalciferol (VITAMIN D) 1,000 unit tab tablet Take 1 capsule by mouth once daily. Indication for ABPM: hypertension and hypotension Recommended Consensus Standards for 24 hr ambulatory blood pressure measurements* Successful readings 62 (87%) Average 24 hour Blood Pressure 103/61 mmHg ?125/75 mmHg * Average Daytime Blood Pressure 103/62 mmHg ?130/80 mmHg * Average Night-time (sleep) Blood Pressure 103/56 mmHg ?110/65 mmHg * Nocturnal Dipping Effect 0.3 % 10%-20% *2017 ACC/AHA Guideline for the Prevention, Detection, Evaluation, and Management of High Blood Pressure in Adults: A Report of the [place] [employer]/[place] [employer] Task Force on Clinical Practice Guidelines. Hypertension. 2018 Oct;71(6):k97-a920. Epub 2016Mar 19. The ABPM should be repeated if the following criteria are not met: 24 hr recording with ?70% of expected measurements, 20 valid awake measurements, 7 valid asleep measurements Final Impression: Well controlled/ low average blood pressures on 24 hour ambulatory blood pressure monitoring. Nocturnal non-dipping On review of individual readings, relatively low readings (as low as 50-60 systolic) noted between 5 am through 12 pm, and relatively higher readings (highest 143/87) between 8 pm to 10 pm Documented taking lisinopril 5 mg at 12.20 am (no other medications/ dosing documented) Patient event form was reviewed - reported intermittent episodes of lightheadedness/ drowsy 12.20 am and abrasive grinder . Other episodes at 12.20 pm (closest BP/ HR 117/70 and 73 bpm at 12.19 pm) and 3.30 pm (closest BP/ HR 118/74 and 71 bpm at 3.30 pm) A copy of this report will be sent to referring physician via EMR. A copy of the full report with raw data and all individual readings will be scanned into [employer], which can be reviewed under scanned documents. Robert Gramajo [facility]02-23-2023 History of Present illness Narrative* Robert Gramajo MD - 06/29/2022 3:22 PM EST Ambulatory Blood Pressure Monitoring (ABPM) Report Patient: Regla Prajapati : 1970 Referring Physician: Ting Camilo MD Date of Recordin06/22/22 Patient s current medications as in EPIC at time of report: terbinafine HCl (LAMISIL) 250 mg tablet Take 250 mg by mouth once daily. lisinopril (ZESTRIL, PRINIVIL) 10 mg tablet Take 1 tablet by mouth twice daily. cloNIDine HCl (CATAPRES) 0.1 mg tablet Take 1 tablet by mouth every 8 hours as needed (take if systolic BP>170). pantoprazole DR (PROTONIX) 40 mg tablet Take 40 mg by mouth once daily. SYNTHROID 50 mcg tablet conjugated estrogens (PREMARIN) vaginal cream naltrexone capsule 4.5 mg (CPD) Take 1 capsule by mouth once daily. tiZANidine HCl 4 mg capsule Take 4 mg by mouth twice daily as needed. buPROPion HCL 200 mg 12 hr tablet Take 200 mg by mouth twice daily. ALPRAZolam (XANAX) 0.5 mg tablet Take 0.5 mg by mouth three times daily as needed. omeprazole (PRILOSEC) 20 mg capsule 40 mg once daily. ezetimibe (ZETIA) 10 mg tablet Take 1 tablet by mouth once daily. atorvastatin (LIPITOR) 40 mg tablet Take 1 tablet by mouth daily at bedtime. clopidogrel (PLAVIX) 75 mg tablet TAKE 1 TABLET BY MOUTH ONCE DAILY FOR 14 DAYS aspirin, enteric coated (ASPIRIN, ENTERIC COATED) 81 mg EC tablet Take 81 mg by mouth once daily. cholecalciferol (VITAMIN D) 1,000 unit tab tablet Take 1 capsule by mouth once daily. Indication for ABPM: hypertension and hypotension Recommended Consensus Standards for 24 hr ambulatory blood pressure measurements* Successful readings 62 (87%) Average 24 hour Blood Pressure 103/61 mmHg ?125/75 mmHg * Average Daytime Blood Pressure 103/62 mmHg ?130/80 mmHg * Average Night-time (sleep) Blood Pressure 103/56 mmHg ?110/65 mmHg * Nocturnal Dipping Effect 0.3 % 10%-20% *2017 ACC/AHA Guideline for the Prevention, Detection, Evaluation, and Management of High Blood Pressure in Adults: A Report of the [place] [employer]/[place] [employer] Task Force on Clinical Practice Guidelines. Hypertension. 2018 Oct;71(6):r23-l796. Epub 2016Mar 19. The ABPM should be repeated if the following criteria are not met: 24 hr recording with ?70% of expected measurements, 20 valid awake measurements, 7 valid asleep measurements Final Impression: Well controlled/ low average blood pressures on 24 hour ambulatory blood pressure monitoring. Nocturnal non-dipping On review of individual readings, relatively low readings (as low as 50-60 systolic) noted between 5 am through 12 pm, and relatively higher readings (highest 143/87) between 8 pm to 10 pm Documented taking lisinopril 5 mg at 12.20 am (no other medications/ dosing documented) Patient event form was reviewed - reported intermittent episodes of lightheadedness/ drowsy 12.20 am and abrasive grinder . Other episodes at 12.20 pm (closest BP/ HR 117/70 and 73 bpm at 12.19 pm) and3.30 pm (closest BP/ HR 118/74 and 71 bpm at 3.30 pm) A copy of this report will be sent to referring physician via EMR. A copy of the full report with raw data and all individual readings will be scanned into [employer], which can be reviewed under scanned documents. Robert Gramajo MD documented [facility] Evaluation note* Encounter Date Diagnosis Assessment Notes Treatment Notes Treatment Clinical Notes Jun, Gastritis (ICD-10 - K29.70) [facility] Other 02-22-2023 Evaluation note* Encounter Date Diagnosis Assessment Notes Treatment Notes Treatment Clinical Notes Jun, Constipation (ICD-10 - K59.00) Stop Trulance Start Amitiza 24mcg bid Follow up in 3-4 months Jun, Nausea (ICD-10 - R11.0) Jun, Gastritis (ICD-10 - K29.70) Increase Pantoprazole to 40mg bid. [facility] Other 02-16-2023 NoteHNO ID: [id number] Author: Carmen Obrien MA Service: ? Author Type: Hotel Superintendent Type: Progress Notes Filed: 06/22/2022 3:32 PM Note Text: AMBULATORY BLOOD PRESSURE MONITOR Performed automated office BP reading and results downloaded into [employer]. Average BP: 110/77 AOBP - Standardized BP Measurement BP #1: 113/79 Pulse #1: 73 beats/min BP #2 : 108/75 Pulse #2 : 71 beats/min BP #3 : 110/77 Pulse #3 : 76 beats/min Average BP: 110/77 Average Pulse: 73 beats/min BP cuff location: Left upper arm BP cuff size: regular adult Was office BP more than 180/100 (yes/no) If yes, provider informed: name of provider NO Action taken: NONE Applied ambulatory blood pressure monitor. Test reading done, demonstrated to patient Explained to patient the event form and also explained that on the event form they must document blood pressure medications taken morning, noon, and night. Explained to patient that they must keep the 24-hour monitor dry, to be still when the cuff inflates (to help reduce errors), and to resume usual activity once cuff deflates. Patient instructed to remove monitor and stop procedure if there is significant cuff inflation discomfort leading to pain or bruising. Patient instructed to follow up with ordering provider about results Explained to patient to return monitor by mail via J[employer] no later than: 06/23/2022. Serial number: [id number] [employer] Tracking number [id number] Did the patient receive a blood pressure cuff? Yes Did the patient receive a blood pressure monitor? Yes Did the patient receive a belt? Yes Patient expressed understanding of all above. Patient signed financial release form and aware that they will be billed if the monitor is not returned by the specified date. All questions answered Carmen Obrien [facility]02-16-2023 NoteHNO ID: [id number] Author: Ting Camilo MD Service: ? Author Type: Physician Type: Progress Notes Filed: 06/22/2022 3:21 PM Note Text: Chief complaint: follow up HTN HPI: Ms. Prajapati is a 51yo female here for follow up HTN in the setting of diffuse PVD and mild NANCY. Currently, her BP's have not been spiking but she complains of drops in BP and dizziness on standing during the night if she wakes up to use the bathroom. Also she notes dyspnea fatigue and rapid HR up to 120's with minimal exertion during the day. This latter just started in the last couple of months since we got the BP under control. She states her BP is not low when her HR goes up. PAST MEDICAL HISTORY Diagnosis Date Allergic rhinitis, cause unspecified Allergy, airborne subst Anxiety state Dyspareunia Essential hypertension Fibromyalgia Genital herpes, unspecified under control Genital herpes Irritable bowel syndrome Irritable bowel Other and unspecified ovarian cyst 5 y/a Ovarian cyst Peripheral vascular disease (HCC) extensive, S/p right carotid stent and right iliac artery stent Renal artery stenosis (HCC) right Varicella without mention of complication Chickenpox PAST SURGICAL HISTORY Procedure Laterality Date COLONOSCOPY FLX DX W/COLLJ SPEC WHEN PFRMD 04/07/02 Colonoscopy LAPS ABD PRTMANDOMENTUM DX W/WO SPEC BR/WA SPX 5 yrs ago Laparoscopy Current Outpatient Medications Medication Sig terbinafine HCl (LAMISIL) 250 mg tablet Take 250 mg by mouth once daily. lisinopril (ZESTRIL, PRINIVIL) 10 mg tablet Take 1 tablet by mouth twice daily. cloNIDine HCl (CATAPRES) 0.1 mg tablet Take 1 tablet by mouth every 8 hours as needed (take if systolic BP>170). pantoprazole DR (PROTONIX) 40 mg tablet Take 40 mg by mouth once daily. SYNTHROID 50 mcg tablet conjugated estrogens (PREMARIN) vaginal cream tiZANidine HCl 4 mg capsule Take 4 mg by mouth twice daily as needed. buPROPion HCL 200 mg 12 hr tablet Take 200 mg by mouth twice daily. ALPRAZolam (XANAX) 0.5 mg tablet Take 0.5 mg by mouth three times daily as needed. atorvastatin (LIPITOR) 40 mg tablet Take 1 tablet by mouth daily at bedtime. clopidogrel (PLAVIX) 75 mg tablet TAKE 1 TABLET BY MOUTH ONCE DAILY FOR 14 DAYS aspirin, enteric coated (ASPIRIN, ENTERIC COATED) 81 mg EC tablet Take 81 mg by mouth once daily. naltrexone capsule 4.5 mg (CPD) Take 1 capsule by mouth once daily. omeprazole (PRILOSEC) 20 mg capsule 40 mg once daily. ezetimibe (ZETIA) 10 mg tablet Take 1 tablet by mouth once daily. cholecalciferol (VITAMIN D) 1,000 unit tab tablet Take 1 capsule by mouth once daily. No current facility-administered medications for this visit. ALLERGIES Allergen Reactions Amlodipine Swelling BLE swelling Penicillins Social History Tobacco Use Smoking status: Former Packs/day: 0.50 Years: 15.00 Pack years: 7.50 Types: Cigarettes Quit date: 12/22/2018 Years since quittin.5 Smokeless tobacco: Never Substance Use Topics Alcohol use: Not Currently Alcohol/week: 1.7 standard drinks Drug use: No FAMILY HISTORY Problem Relation Age of Onset other (brain aneurism) Mother age 46 other (healthy) Father 53 yrs. other (healthy) Sister 26 yrs. Review of systems: General: Positive for fatigue; Negative for weight loss, night sweats, and fever Head/Neck: Negative for metallic or bitter taste Cardiac: Positive for palpitations, lightheadedness, dizziness, and chest pain or pressure; Negative for syncope Vascular: Negative for edema Pulmonary: Negative for dyspnea, and cough GastroIntestinal: Positive for nausea, loss of appetite, emesis, and constipation; Negative for diarrhea, and abdominal pain Genito-Urinary: Negative for pink or red urine, pain with urination, groin pain, flank pain, and decreased urine Hematology: Positive for easy bruising; Other: Positive for daytime somnolence; BP 110/77 (BP Site: Left Arm, BP Position: Sitting, BP Cuff Size: Regular Adult) Pulse 73 Temp 36.6 ?C (97.8 ?F) (Oral) Ht 157.5 cm (5' 2 ) Wt 65.4 kg (144 lb 1.6 oz) BMI 26.36 kg/m? BP - standardized method Pulse 1 BP #1: 113/79 Pulse #1: 73 beats/min 2 BP #2 : 108/75 Pulse #2 : 71 beats/min 3 BP #3 : 110/77 Pulse #3 : 76 beats/min Average Average BP: 110/77 Average Pulse: 73 beats/min Orthostatic vitals Supine Sitting Standing Standing BP : 104/72 Standing pulse : 69 BP cuff location BP cuff location: Left upper arm BP cuff size BP cuff size: regular adult Comments for BP values First BP (right) First BP (left) Exam: Constitutional: Mental status: alert and oriented x4. No acute distress. ENT: Eyes: No icterus, not injected. Cardiovascular: Heart: normal rate, regular rhythm, no murmurs, no rubs. Lungs: Symmetric lung expansion. Clear to auscultation without wheezes, rales or rubs. Extremities: No edema Skin: No jaundice Labs reviewed CKD LAB (more content not included)...[facility]02-16-2023 Instructions* Patient Instructions* Carmen Obrien MA - 06/22/2022 3:29 PM EST AMBULATORY BLOOD PRESSURE MONITOR Performed automated office BP reading and results downloaded into [employer]. Average BP: 110/77 AOBP - Standardized BP Measurement BP #1: 113/79 Pulse #1: 73 beats/min BP #2 : 108/75 Pulse #2 : 71 beats/min BP #3 : 110/77 Pulse #3 : 76 beats/min Average BP: 110/77 Average Pulse: 73 beats/min BP cuff location: Left upper arm BP cuff size: regular adult Was office BP more than 180/100 (yes/no) If yes, provider informed: name of provider NO Action taken: NONE Applied ambulatory blood pressure monitor. Test reading done, demonstrated to patient Explained to patient the event form and also explained that on the event form they must document blood pressure medications taken morning, noon, and night. Explained to patient that they must keep the 24-hour monitor dry, to be still when the cuff inflates (to help reduce errors), and to resume usual activity once cuff deflates. Patient instructed to remove monitor and stop procedure if there is significant cuff inflation discomfort leading to pain or bruising. Patient instructed to follow up with ordering provider about results Explained to patient to return monitor by mail via Jagex no later than: 06/23/2022. Serial number: [id number] [employer] Tracking number [id number] Did the patient receive a blood pressure cuff? Yes Did the patient receive a blood pressure monitor? Yes Did the patient receive a belt? Yes Patient expressed understanding of all above. Patient signed financial release form and aware that they will be billed if the monitor is not returned by the specified date. All questions answered Carmen Obrien MA [facility] Instructions* Patient Instructions* Ting Camilo MD - 06/22/2022 3:21 PM EST 24hr BP cuff Decrease nighttime lisinopril to 5mg Get EKG Let me know how BP's and your dizziness are doing in a few weeks Return 3 months [facility] History of Present illness Narrative* Carmen Obrien MA - 06/22/2022 3:16 PM EST AMBULATORY BLOOD PRESSURE MONITOR Performed automated office BP reading and results downloaded into [employer]. Average BP: 110/77 AOBP - Standardized BP Measurement BP #1: 113/79 Pulse #1: 73 beats/min BP #2 : 108/75 Pulse #2 : 71 beats/min BP #3 : 110/77 Pulse #3 : 76 beats/min Average BP: 110/77 Average Pulse: 73 beats/min BP cuff location: Left upper arm BP cuff size: regular adult Was office BP more than 180/100 (yes/no) If yes, provider informed: name of provider NO Action taken: NONE Applied ambulatory blood pressure monitor. Test reading done, demonstrated to patient Explained to patient the event form and also explained that on the event form they must document blood pressure medications taken morning, noon, and night. Explained to patient that they must keep the 24-hour monitor dry, to be still when the cuff inflates (to help reduce errors), and to resume usual activity once cuff deflates. Patient instructed to remove monitor and stop procedure if there is significant cuff inflation discomfort leading to pain or bruising. Patient instructed to follow up with ordering provider about results Explained to patient to return monitor by mail via Jagex no later than: 06/23/2022. Serial number: [id number] [employer] Tracking number [id number] Did the patient receive a blood pressure cuff? Yes Did the patient receive a blood pressure monitor? Yes Did the patient receive a belt? Yes Patient expressed understanding of all above. Patient signed financial release form and aware that they will be billed if the monitor is not returned by the specified date. All questions answered Carmen Obrien MA documented in this [facility] History of Present illness Narrative* Ting Camilo MD - 06/22/2022 2:56 PM EST Chief complaint: follow up HTN HPI: Ms. Prajapati is a 51yo female here for follow up HTN in the setting of diffuse PVD and mild NANCY. Currently, her BP's have not been spiking but she complains of drops in BP and dizziness on standing during the night if she wakes up to use the bathroom. Also she notes dyspnea fatigue and rapid HR upto 120's with minimal exertion during the day. This latter just started in the last couple of months since we got the BP under control. She states her BP is not low when her HR goes up. PAST MEDICAL HISTORY Diagnosis Date Allergic rhinitis, cause unspecified Allergy, airborne subst Anxiety state Dyspareunia Essential hypertension Fibromyalgia Genital herpes, unspecified under control Genital herpes Irritable bowel syndrome Irritable bowel Other and unspecified ovarian cyst 5 y/a Ovarian cyst Peripheral vascular disease (HCC) extensive, S/p right carotid stent and right iliac artery stent Renal artery stenosis (HCC) right Varicella without mention of complication Chickenpox PAST SURGICAL HISTORY Procedure Laterality Date COLONOSCOPY FLX DX W/COLLJ SPEC WHEN PFRMD 04/07/02 Colonoscopy LAPS ABD PRTM&OMENTUM DX W/WO SPEC BR/WA SPX 5 yrs ago Laparoscopy Current Outpatient Medications Medication Sig terbinafine HCl (LAMISIL) 250 mg tablet Take 250 mg by mouth once daily. lisinopril (ZESTRIL, PRINIVIL) 10 mg tablet Take 1 tablet by mouth twice daily. cloNIDine HCl (CATAPRES) 0.1 mg tablet Take 1 tablet by mouth every 8 hours as needed (take if systolic BP>170). pantoprazole DR (PROTONIX) 40 mg tablet Take 40 mg by mouth once daily. SYNTHROID 50 mcg tablet conjugated estrogens (PREMARIN) vaginal cream tiZANidine HCl 4 mg capsule Take 4 mg by mouth twice daily as needed. buPROPion HCL 200 mg 12 hr tablet Take 200 mg by mouth twice daily. ALPRAZolam (XANAX) 0.5 mg tablet Take 0.5 mg by mouth three times daily as needed. atorvastatin (LIPITOR) 40 mg tablet Take 1 tablet by mouth daily at bedtime. clopidogrel (PLAVIX) 75 mg tablet TAKE 1 TABLET BY MOUTH ONCE DAILY FOR 14 DAYS aspirin, enteric coated (ASPIRIN, ENTERIC COATED) 81 mg EC tablet Take 81 mg by mouth once daily. naltrexone capsule 4.5 mg (CPD) Take 1 capsule by mouth once daily. omeprazole (PRILOSEC) 20 mg capsule 40 mg once daily. ezetimibe (ZETIA) 10 mg tablet Take 1 tablet by mouth once daily. cholecalciferol (VITAMIN D) 1,000 unit tab tablet Take 1 capsule by mouth once daily. No current facility-administered medications for this visit. ALLERGIES Allergen Reactions Amlodipine Swelling BLE swelling Penicillins Social History Tobacco Use Smoking status: Former Packs/day: 0.50 Years: 15.00 Pack years: 7.50 Types: Cigarettes Quit date: 12/22/2018 Years since quittin.5 Smokeless tobacco: Never Substance Use Topics Alcohol use: Not Currently Alcohol/week: 1.7 standard drinks Drug use: No FAMILY HISTORY Problem Relation Age of Onset other (brain aneurism) Mother age 46 other (healthy) Father 53 yrs. other (healthy) Sister 26 yrs. Review of systems: General: Positive for fatigue; Negative for weight loss, night sweats, and fever Head/Neck: Negative for metallic or bitter taste Cardiac: Positive for palpitations, lightheadedness, dizziness, and chest pain or pressure; Negative for syncope Vascular: Negative for edema Pulmonary: Negative for dyspnea, and cough GastroIntestinal: Positive for nausea, loss of appetite, emesis, and constipation; Negative for diarrhea, and abdominal pain Genito-Urinary: Negative for pink or red urine, pain with urination, groin pain, flank pain, and decreased urine Hematology: Positive for easy bruising; Other: Positive for daytime somnolence; BP 110/77 (BP Site: Left Arm, BP Position: Sitting, BP Cuff Size: Regular Adult) Pulse 73 Temp 36.6 C (97.8 F) (Oral) Ht 157.5 cm (5' 2 ) Wt 65.4 kg (144 lb 1.6 oz) BMI 26.36 kg/m BP - standardized method Pulse 1 BP #1: 113/79 Pulse #1: 73 beats/min 2 BP #2 : 108/75 Pulse #2 : 71 beats/min 3 BP #3 : 110/77 Pulse #3 : 76 beats/min Average Average BP: 110/77 Average Pulse: 73 beats/min Orthostatic vitals Supine Sitting Standing Standing BP : 104/72 Standing pulse : 69 BP cuff location BP cuff location: Left upper arm BP cuff size BP cuff size: regular adult Comments for BP values First BP (right) First BP (left) Exam: Constitutional: Mental status: alert and oriented x4. No acute distress. ENT: Eyes: No icterus, not injected. Cardiovascular: Heart: normal rate, regular rhythm, no murmurs, no rubs. Lungs: Symmetric lung expansion. Clear to auscultation without wheezes, rales or rubs. Extremities: No edema Skin: No jaundice Labs reviewed CKD LAB FLOWSHEET Latest Ref Rng & Units 05/18/2022 06/01/2022 EGFR, All Other >=60 mL/min/1.73m 71 Creatinine 0.58 - 0.96 mg/dL 0.98 (H) BUN 7 - 21 mg/dL 15 Sodium 136 - 144 mmol/L 139 Potassium 3.7 - 5.1 mmol/L 3.8 Chloride 97 - 105 mmol/L 103 CO2 22 - 30 mmol/L 24 Glucose 74 - 99 mg/dL 106 (H) Calcium 8.5 - 10.2 mg/dL 9.4 Phosphorus 2.7 - 4.8 mg/dL 3.6 Albumin 3.9 - 4.9 g/dL 4.2 Creatinine 24 Hr UR 0.800 - 1.800 g/24 hr 0.910 Assessment/Plan- 1) Hypertension: well controlled except for drops at night. We will cut back nightime lisinopril to5mg and see how she does. Monitor for higher am BP's as well. 24hr BP cuff to be fitted today 2) Tachycardia: will check EKG, if still with low voltage, will update echo. 3) Renal artery stenosis: mild on CTA. Not likely impacting HTN. Plan: 24hr BP cuff Decrease nighttime lisinopril to 5mg Get EKG Let me know how BP's and your dizziness are doing in a few weeks Return 3 months Ting Camilo MD documented in this encounter[facility] NotePatient Outreach (MIRTA) REGLA PRAJAPATI ([id number]) 1970 F Date Time Provider Department 06/22/22 TING CAMILO During your visit today, we recorded the following information about you: Allergies As of Date: 06/22/2022 Noted Allergy Reaction AMLODIPINE 05/08/2019 7 - Swelling Comments: BLE swelling PENICILLINS 04/24/2002 Date Reviewed: 06/22/2022 Reviewed by: Yen Beth MA - Fully Assessed Visit Diagnosis:Screening for genitourinary condition [Z13.89] Order(s):URINALYSIS, REFLEX MICROSCOPIC [[id number]] Order #: [id number]. #:[id number] Prescriptions as of 06/26/2022 - terbinafine HCl (LAMISIL) 250 mg tablet Take 250 mg by mouth once daily. - lisinopril (ZESTRIL, PRINIVIL) 10 mg tablet Take 1 tablet by mouth twice daily. - cloNIDine HCl (CATAPRES) 0.1 mg tablet Take 1 tablet by mouth every 8 hours as needed (take if systolic BP>170). - pantoprazole DR (PROTONIX) 40 mg tablet Take 40 mg by mouth once daily. - SYNTHROID 50 mcg tablet - conjugated estrogens (PREMARIN) vaginal cream - naltrexone capsule 4.5 mg (CPD) Take 1 capsule by mouth once daily. - tiZANidine HCl 4 mg capsule Take 4 mg by mouth twice daily as needed. - buPROPion HCL 200 mg 12 hr tablet Take 200 mg by mouth twice daily. - ALPRAZolam (XANAX) 0.5 mg tablet Take 0.5 mg by mouth three times daily as needed. - omeprazole (PRILOSEC) 20 mg capsule 40 mg once daily. - ezetimibe (ZETIA) 10 mg tablet Take 1 tablet by mouth once daily. - atorvastatin (LIPITOR) 40 mg tablet Take 1 tablet by mouth daily at bedtime. - clopidogrel (PLAVIX) 75 mg tablet TAKE 1 TABLET BY MOUTH ONCE DAILY FOR 14 DAYS - aspirin, enteric coated (ASPIRIN, ENTERIC COATED) 81 mg EC tablet Take 81 mg by mouth once daily. - cholecalciferol (VITAMIN D) 1,000 unit tab tablet Take 1 capsule by mouth once daily. Problem List As Of Date 06/22/2022 Noted Resolved GOITER NOS [E04.9] 04/24/2002 OTHER MALAISE AND FATIGUE [R53.81, R53.83] 04/24/2002 PVD (peripheral vascular disease) (HCC) [I73.9] 03/19/2019 Essential hypertension [I10] 03/19/2019 Dyslipidemia [E78.5] 03/19/2019 Chest pain [R07.9] 03/19/2019 Dyspnea on exertion [R06.09] 03/19/2019 Bilateral carotid artery stenosis [I65.23] 04/17/2019 Bilateral arm weakness [R29.898] 04/17/2019 Atherosclerosis [I70.90] 04/17/2019 Renal artery stenosis (HCC) [I70.1] 05/08/2019 TIA (transient ischemic attack) [G45.9] 01/26/2020 01/27/2020 Hyperventilation [R06.4] 01/27/2020 04/14/2021 PTSD (post-traumatic stress disorder) [F43.10] 09/11/2019 Hyperlipidemia [E78.5] 04/14/2020 Hiatal hernia [K44.9] 04/06/2020 Hemorrhoids [K64.9] 04/06/2020 Encounter Status:Closed by Addictive, PRODUSER on 06/26/22[facility] 05-04-2022 NoteHNO ID: [id number] Author: Fermin Begum MD Service: ? Author Type: Physician Type: Progress Notes Filed: 05/04/2022 12:21 PM Note Text: [facility] [place] DEPARTMENT OF VASCULAR SURGERY OUTPATIENT VISIT DATE May 04, 2022 OUTPATIENT VISIT TYPE ESTABLISHED SERVICE DATE: 05/04/2022 SERVICE TIME: 11:54 AM PRIMARY CARE PHYSICIAN: Renetta Ridley, BENEFITS REPRESENTATIVE, BENEFITS REPRESENTATIVE HISTORY OF PRESENT ILLNESS: Ms. 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 She continues to have weakness in both upper arms with folding laundry or other repetitive activities, and with raising her arms over her head. She has shortness of breath daily, not related to activity, feels like pressure/tightness on her chest making it hard to breathe Evaluation so far includes coronary angiography 03/28/19 with no significant disease, echo 03/19/19 with normal LVEF, diastolic function and no significant valvular abnormalities 03/04/2019 patient had procedure at [facility] in [place] for critical right common iliac artery stenosis of 95% and right CCA stenosis 85-90% at the arch. This lesion was stented as well. Notes indicate patient was sensitive to catheter manipulation and significant left ostial carotid artery stenosis was not addressed at that time. 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 It was also noted that patient had a low pain threshold and extreme anxiety and would require general anesthesia for any other procedures. RCIA stent placed for claudication, when she walked, climbed stairs, or bent over in a certain way she would develop discomfort in right hip and radiate to calves. Abated with resting after a minute or so. Symptoms progressed Her symtpoms are equal in b/l upper extremity with repetitive arm movement develops weakness and occassional arm tingling. However, she can also develop these during periods of anxiety, laughing, occassoinally associated with chest pain. No renovacular htn despite b/l renal arterial stenosis Cr 0.77 from 04/2020, 1.03 from today 04/07/21 Lisinopril 5.. PAST MEDICAL HISTORY Diagnosis Date Allergic rhinitis, cause unspecified Allergy, airborne subst Anxiety state Dyspareunia Essential hypertension Fibromyalgia Genital herpes, unspecified under control Genital herpes Irritable bowel syndrome Irritable bowel Other and unspecified ovarian cyst 5 y/a Ovarian cyst Peripheral vascular disease (HCC) extensive, S/p right carotid stent and right iliac artery stent Renal artery stenosis (HCC) right Varicella without mention of complication Chickenpox PAST SURGICAL HISTORY Procedure Laterality Date COLONOSCOPY FLX DX W/COLLJ SPEC WHEN PFRMD 04/07/02 Colonoscopy LAPS ABD PRTMANDOMENTUM DX W/WO SPEC BR/WA SPX 5 yrs ago Laparoscopy SOCIAL HISTORY Social History Tobacco Use Smoking status: Former Packs/day: 0.50 Years: 15.00 Pack years: 7.50 Types: Cigarettes Quit date: 12/22/2018 Years since quittin.3 Smokeless tobacco: Never Substance Use Topics Alcohol use: Not Currently Alcohol/week: 1.7 standard drinks Drug use: No MEDICATIONS: atorvastatin (LIPITOR) 40 mg tablet Take 1 tablet by mouth daily at bedtime. clopidogrel (PLAVIX) 75 mg tablet TAKE 1 TABLET BY MOUTH ONCE DAILY FOR 14 DAYS aspirin, enteric coated (ASPIRIN, ENTERIC COATED) 81 mg EC tablet Take 81 mg by mouth once daily. lisinopril (ZESTRIL, PRINIVIL) 10 mg tablet Take 1 tablet by mouth twice daily. pantoprazole DR (PROTONIX) 40 mg tablet Take 40 mg by mouth once daily. SYNTHROID 50 mcg tablet conjugated estrogens (PREMARIN) vaginal cream naltrexone capsule 4.5 mg (CPD) Take 1 capsule by mouth once daily. tiZANidine HCl 4 mg capsule Take 4 mg by mouth twice daily as needed. buPROPion HCL 200 mg 12 hr tablet Take 200 mg by mouth twice daily. ALPRAZolam (XANAX) 0.5 mg tablet Take 0.5 mg by mouth three times daily as needed. omeprazole (PRILOSEC) 20 mg capsule 40 mg once daily. ezetimibe (ZETIA) 10 mg tablet Take 1 tablet by mouth once daily. cholecalciferol (VITAMIN D) 1,000 unit tab tablet Take 1 capsule by mouth once daily. ALLERGIES: ALLERGIES Allergen Reactions Amlodipine Swelling BLE swelling Penicillins PHYSICAL EXAM: BP 140/84 Pulse 84 General: Alert and oriented Abdomen: Soft, non-tender, no rigidity. Extremities: thenar/hypthenar atrophy. Hands warm, fingers pink, well perfused. 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 Author Type: Physician Type: Progress Notes Filed: 03/23/2022 2:34 PM Note Text: Chief complaint: follow up NANCY HPI: Ms. Prajapati is a 51yo female here for follow up bilateral NANCY in the setting of diffuse premature vascular disease. When last seen 6 months ago, her BP was stable on low dose lisinopril. She had passed out the month before seeing her, but had been asymptomatic after that. However, she had 3 months of abdominal pain, nausea and emesis, has improved but still with get bloating and pain, rarely with throw up. 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 Her lisinopril was increased to 10mg a day last week without much benefit. She also has episodes of dizziness. PAST MEDICAL HISTORY Diagnosis Date Allergic rhinitis, cause unspecified Allergy, airborne subst Anxiety state Dyspareunia Essential hypertension Fibromyalgia Genital herpes, unspecified under control Genital herpes Irritable bowel syndrome Irritable bowel Other and unspecified ovarian cyst 5 y/a Ovarian cyst Peripheral vascular disease (HCC) extensive, S/p right carotid stent and right iliac artery stent Renal artery stenosis (HCC) right Varicella without mention of complication Chickenpox PAST SURGICAL HISTORY Procedure Laterality Date COLONOSCOPY FLX DX W/COLLJ SPEC WHEN PFRMD 04/07/02 Colonoscopy LAPS ABD PRTMANDOMENTUM DX W/WO SPEC BR/WA SPX 5 yrs ago Laparoscopy Current Outpatient Medications Medication Sig lisinopril (ZESTRIL, PRINIVIL) 5 mg tablet Take 2 tablets by mouth once daily. pantoprazole DR (PROTONIX) 40 mg tablet Take 40 mg by mouth once daily. SYNTHROID 50 mcg tablet conjugated estrogens (PREMARIN) vaginal cream naltrexone capsule 4.5 mg (CPD) Take 1 capsule by mouth once daily. tiZANidine HCl 4 mg capsule Take 4 mg by mouth twice daily as needed. buPROPion HCL 200 mg 12 hr tablet Take 200 mg by mouth twice daily. ALPRAZolam (XANAX) 0.5 mg tablet Take 0.5 mg by mouth three times daily as needed. omeprazole (PRILOSEC) 20 mg capsule 40 mg once daily. ezetimibe (ZETIA) 10 mg tablet Take 1 tablet by mouth once daily. atorvastatin (LIPITOR) 40 mg tablet Take 1 tablet by mouth daily at bedtime. clopidogrel (PLAVIX) 75 mg tablet TAKE 1 TABLET BY MOUTH ONCE DAILY FOR 14 DAYS aspirin, enteric coated (ASPIRIN, ENTERIC COATED) 81 mg EC tablet Take 81 mg by mouth once daily. cholecalciferol (VITAMIN D) 1,000 unit tab tablet Take 1 capsule by mouth once daily. No current facility-administered medications for this visit. ALLERGIES Allergen Reactions Amlodipine Swelling BLE swelling Penicillins Social History Tobacco Use Smoking status: Former Packs/day: 0.50 Years: 15.00 Pack years: 7.50 Types: Cigarettes Quit date: 12/22/2018 Years since quittin.2 Smokeless tobacco: Never Substance Use Topics Alcohol use: Not Currently Alcohol/week: 1.7 standard drinks Drug use: No FAMILY HISTORY Problem Relation Age of Onset other (brain aneurism) Mother age 46 other (healthy) Father 53 yrs. other (healthy) Sister 26 yrs. Review of systems: General: Positive for weight loss, and fatigue; Negative for night sweats, and fever Head/Neck: Negative for metallic or bitter taste Cardiac: Positive for palpitations, orthopnea, lightheadedness, dizziness, chest pain or pressure, and PND; Negative for syncope Vascular: Positive for edema; Pulmonary: Negative for dyspnea, and cough GastroIntestinal: Negative for nausea, loss of appetite, emesis, diarrhea, constipation, and abdominal pain Genito-Urinary: Negative for pink or red urine, pain with urination, groin pain, flank pain, and decreased urine Hematology: Positive for easy bruising; Other: Positive for daytime somnolence; BP 124/89 (BP Site: Left Arm, BP Position: Sitting, BP Cuff Size: Regular Adult) Pulse 87 Temp 36.6 ?C (97.9 ?F) (Oral) Ht 157.5 cm (5' 2 ) Wt 68 kg (150 lb) BMI 27.44 kg/m? BP - standardized method Pulse 1 BP #1: 127/92 Pulse #1: 93 beats/min 2 BP #2 : 126/88 Pulse #2 : 83 beats/min 3 BP #3 : 118/86 Pulse #3 : 86 beats/min Average Average BP: 124/89 Average Pulse: 87 beats/min Orthostatic vitals Supine Sitting Standing Standing BP : 118/83 Standing pulse : 92 BP cuff location BP cuff location: Left upper arm BP cuff size BP cuff size: regular adult Comments for BP values First BP (right) First BP (left) Exam: Constitutional: Mental status: alert and oriented x4. No acute distress. ENT: Eyes: No icterus, not injected. Cardiovascular: Heart: normal rate, regular rhythm, no murmurs, no rubs. Lungs: Symmetric lung expansion. Clear to auscultation without wheezes, rales or rubs. Extremities: No (more content not included)...[facility]11-17-2022 Instructions* Patient Instructions* Ting Camilo MD - 03/23/2022 2:28 PM EST Continue lisinopril 10mg at night Take another 10mg lisinopril in the morning if your morning BPs is elevated. Try to taker your meds the same times every day Let me know how the BP's are doing in 2 weeks on MyChart message Follow up with Dr. Anderson as planned Return 3 months kidney US in 6 [facility] of Present illness Narrative* Ting Camilo MD - 03/23/2022 2:03 PM EST Chief complaint: follow up NANCY HPI: Ms. Prajapati is a 51yo female here for follow up bilateral NANCY in the setting of diffuse prematurevascular disease. When last seen 6 months ago, her BP was stable on low dose lisinopril. She had passed out the month before seeing her, but had been asymptomatic after that. However, she had 3 months of abdominal pain, nausea and emesis, has improved but still with get bloating and pain, rarely with throw up. 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 Her lisinopril was increased to 10mg a day last week without much benefit. She also has episodes of dizziness. PAST MEDICAL HISTORY Diagnosis Date Allergic rhinitis, cause unspecified Allergy, airborne subst Anxiety state Dyspareunia Essential hypertension Fibromyalgia Genital herpes, unspecified under control Genital herpes Irritable bowel syndrome Irritable bowel Other and unspecified ovarian cyst 5 y/a Ovarian cyst Peripheral vascular disease (HCC) extensive, S/p right carotid stent and right iliac artery stent Renal artery stenosis (HCC) right Varicella without mention of complication Chickenpox PAST SURGICAL HISTORY Procedure Laterality Date COLONOSCOPY FLX DX W/COLLJ SPEC WHEN PFRMD 04/07/02 Colonoscopy LAPS ABD PRTM&OMENTUM DX W/WO SPEC BR/WA SPX 5 yrs ago Laparoscopy Current Outpatient Medications Medication Sig lisinopril (ZESTRIL, PRINIVIL) 5 mg tablet Take 2 tablets by mouth once daily. pantoprazole DR (PROTONIX) 40 mg tablet Take 40 mg by mouth once daily. SYNTHROID 50 mcg tablet conjugated estrogens (PREMARIN) vaginal cream naltrexone capsule 4.5 mg (CPD) Take 1 capsule by mouth once daily. tiZANidine HCl 4 mg capsule Take 4 mg by mouth twice daily as needed. buPROPion HCL 200 mg 12 hr tablet Take 200 mg by mouth twice daily. ALPRAZolam (XANAX) 0.5 mg tablet Take 0.5 mg by mouth three times daily as needed. omeprazole (PRILOSEC) 20 mg capsule 40 mg once daily. ezetimibe (ZETIA) 10 mg tablet Take 1 tablet by mouth once daily. atorvastatin (LIPITOR) 40 mg tablet Take 1 tablet by mouth daily at bedtime. clopidogrel (PLAVIX) 75 mg tablet TAKE 1 TABLET BY MOUTH ONCE DAILY FOR 14 DAYS aspirin, enteric coated (ASPIRIN, ENTERIC COATED) 81 mg EC tablet Take 81 mg by mouth once daily. cholecalciferol (VITAMIN D) 1,000 unit tab tablet Take 1 capsule by mouth once daily. No current facility-administered medications for this visit. ALLERGIES Allergen Reactions Amlodipine Swelling BLE swelling Penicillins Social History Tobacco Use Smoking status: Former Packs/day: 0.50 Years: 15.00 Pack years: 7.50 Types: Cigarettes Quit date: 12/22/2018 Years since quittin.2 Smokeless tobacco: Never Substance Use Topics Alcohol use: Not Currently Alcohol/week: 1.7 standard drinks Drug use: No FAMILY HISTORY Problem Relation Age of Onset other (brain aneurism) Mother age 46 other (healthy) Father 53 yrs. other (healthy) Sister 26 yrs. Review of systems: General: Positive for weight loss, and fatigue; Negative for night sweats, and fever Head/Neck: Negative for metallic or bitter taste Cardiac: Positive for palpitations, orthopnea, lightheadedness, dizziness, chest pain or pressure, and PND; Negative for syncope Vascular: Positive for edema; Pulmonary: Negative for dyspnea, and cough GastroIntestinal: Negative for nausea, loss of appetite, emesis, diarrhea, constipation, and abdominal pain Genito-Urinary: Negative for pink or red urine, pain with urination, groin pain, flank pain, and decreased urine Hematology: Positive for easy bruising; Other: Positive for daytime somnolence; BP 124/89 (BP Site: Left Arm, BP Position: Sitting, BP Cuff Size: Regular Adult) Pulse 87 Temp 36.6 C (97.9 F) (Oral) Ht 157.5 cm (5' 2 ) Wt 68 kg (150 lb) BMI 27.44 kg/m BP - standardized method Pulse 1 BP #1: 127/92 Pulse #1: 93 beats/min 2 BP #2 : 126/88 Pulse #2 : 83 beats/min 3 BP #3 : 118/86 Pulse #3 : 86 beats/min Average Average BP: 124/89 Average Pulse: 87 beats/min Orthostatic vitals Supine Sitting Standing Standing BP : 118/83 Standing pulse : 92 BP cuff location BP cuff location: Left upper arm BP cuff size BP cuff size: regular adult Comments for BP values First BP (right) First BP (left) Exam: Constitutional: Mental status: alert and oriented x4. No acute distress. ENT: Eyes: No icterus, not injected. Cardiovascular: Heart: normal rate, regular rhythm, no murmurs, no rubs. Lungs: Symmetric lung expansion. Clear to auscultation without wheezes, rales or rubs. Extremities: No edema Skin: No jaundice Labs reviewed Creatinine (mg/dL) Date Value 04/07/2021 1.03 03/16/2021 0.99 03/16/2021 1.01 04/15/2020 0.77 01/26/2020 0.83 BUN (mg/dL) Date Value 04/07/2021 17 03/16/2021 14 03/16/2021 14 04/15/2020 15 01/26/2020 17 CKD LAB FLOWSHEET Latest Ref Rng & Units 04/07/2021 06/15/2021 EGFR, >60 EGFR, All Other . 57 Creatinine 0.58 - 0.96 mg/dL 1.03 (H) BUN 7 - 21 mg/dL 17 Sodium 136 - 144 mmol/L 140 Potassium 3.7 - 5.1 mmol/L 4.2 Chloride 97 - 105 mmol/L 103 CO2 22 - 30 mmol/L 26 Glucose 74 - 99 mg/dL 140 (H) Calcium 8.5 - 10.2 mg/dL 9.2 Phosphorus 2.7 - 4.8 mg/dL 4.2 Albumin 3.9 - 4.9 g/dL 4.1 Vitamin D25 Hydroxy 31.0 - 80.0 ng/mL 55.3 Labs: Outside labs from yesterday - Scr 0.9. CT with contrast/ complex/hemorrhagic cyst Assessment/Plan- 1) Renal artery stenosis: with diffuse vascular disease. Our approach had been one of not intervening unless absolutely necessary. Last doppler showed more severe stenosis than was seen on follow up CTA. Follows with Dr. Anderson in vascular surgery, scheduled to see him next month after US imaging. Obviously there is concern with her widely vacillating BP's that her NANCY may be worsening. Will work to stabilize her BP medically while she waits to see dr. Anderson next month. 2) Hypertension: as above. Will change lisinopril to 10mg qhs with another 10mg in the am if her BPis >140 SB or >90 DBP. Use this regimen to try to avoid hypotension on days her Bp is not elevated. 3) Renal cyst: complex on CT yesterday, will check kidney US in 6 months Plan: Continue lisinopril 10mg at night Take another 10mg lisinopril in the morning if your morning BPs is elevated. Try to taker your meds the same times every day Let me know how the BP's are doing in 2 weeks on [facility] message Follow up with Dr. Anderson as planned Return 3 months kidney US in 6 months Ting Camilo MD [facility] NotePatient Outreach ([facility]) REGLA PRAJAPATI ([id number]) 1970 F Date Time Provider Department 03/23/22 TING CAMILO During your visit today, we recorded the following information about you: Allergies As of Date: 03/23/2022 Noted Allergy Reaction AMLODIPINE 05/08/2019 7 - Swelling Comments: BLE swelling PENICILLINS 04/24/2002 Date Reviewed: 03/23/2022 Reviewed by: Yen Beth MA - Fully Assessed Visit Diagnosis:Screening for genitourinary condition [Z13.89] Order(s):URINALYSIS, REFLEX MICROSCOPIC [[id number]] Order #: [id number] Prescriptions as of 03/27/2022 - lisinopril (ZESTRIL, PRINIVIL) 10 mg tablet Take 1 tablet by mouth twice daily. - pantoprazole DR (PROTONIX) 40 mg tablet Take 40 mg by mouth once daily. - SYNTHROID 50 mcg tablet - conjugated estrogens (PREMARIN) vaginal cream - naltrexone capsule 4.5 mg (CPD) Take 1 capsule by mouth once daily. - tiZANidine HCl 4 mg capsule Take 4 mg by mouth twice daily as needed. - buPROPion HCL 200 mg 12 hr tablet Take 200 mg by mouth twice daily. - ALPRAZolam (XANAX) 0.5 mg tablet Take 0.5 mg by mouth three times daily as needed. - omeprazole (PRILOSEC) 20 mg capsule 40 mg once daily. - ezetimibe (ZETIA) 10 mg tablet Take 1 tablet by mouth once daily. - atorvastatin (LIPITOR) 40 mg tablet Take 1 tablet by mouth daily at bedtime. - clopidogrel (PLAVIX) 75 mg tablet TAKE 1 TABLET BY MOUTH ONCE DAILY FOR 14 DAYS - aspirin, enteric coated (ASPIRIN, ENTERIC COATED) 81 mg EC tablet Take 81 mg by mouth once daily. - cholecalciferol (VITAMIN D) 1,000 unit tab tablet Take 1 capsule by mouth once daily. Problem List As Of Date 03/23/2022 Noted Resolved GOITER NOS [E04.9] 04/24/2002 OTHER MALAISE AND FATIGUE [R53.81, R53.83] 04/24/2002 PVD (peripheral vascular disease) (HCC) [I73.9] 03/19/2019 Essential hypertension [I10] 03/19/2019 Dyslipidemia [E78.5] 03/19/2019 Chest pain [R07.9] 03/19/2019 Dyspnea on exertion [R06.09] 03/19/2019 Bilateral carotid artery stenosis [I65.23] 04/17/2019 Bilateral arm weakness [R29.898] 04/17/2019 Atherosclerosis [I70.90] 04/17/2019 Renal artery stenosis (HCC) [I70.1] 05/08/2019 TIA (transient ischemic attack) [G45.9] 01/26/2020 01/27/2020 Hyperventilation [R06.4] 01/27/2020 04/14/2021 PTSD (post-traumatic stress disorder) [F43.10] 09/11/2019 Hyperlipidemia [E78.5] 04/14/2020 Hiatal hernia [K44.9] 04/06/2020 Hemorrhoids [K64.9] 04/06/2020 Encounter Status:Closed by Addictive, PRODUSER on 03/27/22[facility] 01-05-2022 NoteHNO ID: [id number] Author: Brad Bone Jr., MD Service: ? Author Type: Physician Type: Progress Notes Filed: 01/05/2022 1:31 PM Note Text: CONSULTATION Requesting provider: Renetta Ridley, BENEFITS REPRESENTATIVE ([facility]) [address] [place] [address] Alo is here today for my opinion regarding abdominal pain. My final recommendation will be communicated back to the requesting provider by way of shared medical record or letter. Patient referred by PCP for GB evaluation. Has multiple GI symptoms for last 20 months. Reports epigastric bloating, nausea and vomiting. Symptoms aren't specifically precipitated by food except once (cheese pizza), Vomitted watery emesis. Also having consiptation. Last endoscopic W/U was in [place] about 3 years ago. Initial work up performed at OSH ([place], [place]): US - normal GB, wall = 1.6mm, no stones, no pericholecystic fluid, common bile duct measures 4.3mm HIDA:negative, EF = 35% (NORMAL EF >36%) Patient has cardiac history and is on PLAVIX. PAST MEDICAL HISTORY Diagnosis Date Allergic rhinitis, cause unspecified Allergy, airborne subst Anxiety state Dyspareunia Essential hypertension Fibromyalgia Genital herpes, unspecified under control Genital herpes Irritable bowel syndrome Irritable bowel Other and unspecified ovarian cyst 5 y/a Ovarian cyst Peripheral vascular disease (HCC) extensive, S/p right carotid stent and right iliac artery stent Renal artery stenosis (HCC) right Varicella without mention of complication Chickenpox PAST SURGICAL HISTORY Procedure Laterality Date COLONOSCOPY FLX DX W/COLLJ SPEC WHEN PFRMD 04/07/02 Colonoscopy LAPS ABD PRTMANDOMENTUM DX W/WO SPEC BR/WA SPX 5 yrs ago Laparoscopy Social History Tobacco Use Smoking status: Former Packs/day: 0.50 Years: 15.00 Pack years: 7.50 Types: Cigarettes Quit date: 12/22/2018 Years since quittin.0 Smokeless tobacco: Never Substance Use Topics Alcohol use: Not Currently Alcohol/week: 1.7 standard drinks Drug use: No FAMILY HISTORY Problem Relation Age of Onset other (brain aneurism) Mother age 46 other (healthy) Father 53 yrs. other (healthy) Sister 26 yrs. REVIEW OF SYSTEMS GENERAL: No weight loss, malaise or fevers. HEENT: Negative for frequent or significant headaches, Negative for changes in hearing, vision or dizziness, Negative for nose bleeds, Negative for difficulty swallowing or hoarsness RESPIRATORY: Negative for cough, hemoptysis, wheezing or shortness of breath CARDIOVASCULAR: Negative for chest pain, leg swelling or palpitations. : No history of dysuria, hematuria, frequency or incontinence. SKIN: Negative for lesions, rash, and itching NEURO: No history of headaches, syncope, paralysis, seizures or tremors PHYSICAL EXAMINATION There were no vitals taken for this visit. General Appearance: Well appearing, alert, in no acute distress, well-hydrated, well nourished. Skin: Color, texture, turgor normal, no suspicious rashes or lesions Head: Normocephalic, no masses, lesions, tenderness or abnormalities Neck: Supple, no adenopathy; thyroid symmetric, normal size, no bruits Lungs: Clear to auscultation. No wheezing, rhonchi, rales Heart: RRR without murmur, gallop, or rubs. No ectopy Abdomen: Soft, non-tender. Bowel sounds normal. No masses, organomegaly Extremities: No ankle edema. Assessment Nausea with vomiting Bloating Constipation Plan: Patient advised that symptoms are atypical for GB problems. Symptoms are precipitated with eating. She also did not experience trouble with HIDA test during administration of medications for EF test. There is a lot likelihood that her symptoms will improve with gallbladder surgery. Recommended evaluation by Gastroenterology. I offered appointment with [facility] and ordered has been placed. Patient given office business card. Brad Bone MD cc: Referring provider Renetta Ridley CNP (Telly) [address] [place] [address] History of Present illness Narrative* Brad Bone Jr., MD - 01/05/2022 11:47 AM EDT CONSULTATION Requesting provider: Renetta Ridley CNP (DrC) [address] [place] [address] Alo is here today for my opinion regarding abdominal pain. My final recommendation will be communicated back to the requesting provider by way of shared medical record or letter. Patient referred by PCP for GB evaluation. Has multiple GI symptoms for last 20 months. Reports epigastric bloating, nausea and vomiting. Symptoms aren't specifically precipitated by food except once (cheese pizza), Vomitted watery emesis. Also having consiptation. Last endoscopic W/U was in [place] about 3 years ago. Initial work up performed at [facility] ([facility] [place]): US - normal GB, wall = 1.6mm, no stones, no pericholecystic fluid, common bile duct measures 4.3mm HIDA:negative, EF = 35% (NORMAL EF >36%) Patient has cardiac history and is on PLAVIX. PAST MEDICAL HISTORY Diagnosis Date Allergic rhinitis, cause unspecified Allergy, airborne subst Anxiety state Dyspareunia Essential hypertension Fibromyalgia Genital herpes, unspecified under control Genital herpes Irritable bowel syndrome Irritable bowel Other and unspecified ovarian cyst 5 y/a Ovarian cyst Peripheral vascular disease (HCC) extensive, S/p right carotid stent and right iliac artery stent Renal artery stenosis (HCC) right Varicella without mention of complication Chickenpox PAST SURGICAL HISTORY Procedure Laterality Date COLONOSCOPY FLX DX W/COLLJ SPEC WHEN PFRMD 04/07/02 Colonoscopy LAPS ABD PRTM&OMENTUM DX W/WO SPEC BR/WA SPX 5 yrs ago Laparoscopy Social History Tobacco Use Smoking status: Former Packs/day: 0.50 Years: 15.00 Pack years: 7.50 Types: Cigarettes Quit date: 12/22/2018 Years since quittin.0 Smokeless tobacco: Never Substance Use Topics Alcohol use: Not Currently Alcohol/week: 1.7 standard drinks Drug use: No FAMILY HISTORY Problem Relation Age of Onset other (brain aneurism) Mother age 46 other (healthy) Father 53 yrs. other (healthy) Sister 26 yrs. REVIEW OF SYSTEMS GENERAL: No weight loss, malaise or fevers. HEENT: Negative for frequent or significant headaches, Negative for changes in hearing, vision or dizziness, Negative for nose bleeds, Negative for difficulty swallowing or hoarsness RESPIRATORY: Negative for cough, hemoptysis, wheezing or shortness of breath CARDIOVASCULAR: Negative for chest pain, leg swelling or palpitations. : No history of dysuria, hematuria, frequency or incontinence. SKIN: Negative for lesions, rash, and itching NEURO: No history of headaches, syncope, paralysis, seizures or tremors PHYSICAL EXAMINATION There were no vitals taken for this visit. General Appearance: Well appearing, alert, in no acute distress, well-hydrated, well nourished. Skin: Color, texture, turgor normal, no suspicious rashes or lesions Head: Normocephalic, no masses, lesions, tenderness or abnormalities Neck: Supple, no adenopathy; thyroid symmetric, normal size, no bruits Lungs: Clear to auscultation. No wheezing, rhonchi, rales Heart: RRR without murmur, gallop, or rubs. No ectopy Abdomen: Soft, non-tender. Bowel sounds normal. No masses, organomegaly Extremities: No ankle edema. Assessment Nausea with vomiting Bloating Constipation Plan: Patient advised that symptoms are atypical for GB problems. Symptoms are precipitated with eating. She also did not experience trouble with HIDA test during administration of medications for EF test. There is a lot likelihood that her symptoms will improve with gallbladder surgery. Recommended evaluation by Gastroenterology. I offered appointment with [facility] and ordered has been placed. Patient given office business card. Brad Bone MD cc: Referring provider Renetta Ridley, BENEFITS REPRESENTATIVE ([facility]) [address] [facility] [place] [address] documented in this encounterFisher[facility]08-24-[facility]22 Miscellaneous Notes* Telephone Encounter - Sherry Rollins - 12/28/2021 4:27 PM EDT Appointment scheduled for 01/[address] Bone. * Telephone Encounter - Meliza Dobbins RN - 12/28/2021 1:28 PM EDT Spoke with patient regarding her OV tomorrow with Dr. Varela. Informed review of the reports not noting anything remarkable for the gallbladder except EF right at 35 %. Patient states she has been having nausea and vomiting and has noticed a little bit of blood at times. She said her PCP wanted herto have a second opinion of the gallbladder and then possibly EGD. Informed patient that Dr. Wilkinson not do EGD procedure and with the current symptoms and testing of the gallbladder without abnormality noted in the reports we will at times do an EGD or less invasive procedures first. Patient would like to see a GS who can evaluate both and I offered her to see Dr. Bone for 01/05 at 1145 and patient accepted documented in this encounterFisher-[facility]06-14-2022 NoteHNO ID: [id number] Author: Mikey Palomo MD Service: ? Author Type: Physician Type: Progress Notes Filed: 10/28/2021 5:43 PM Note Text: TELEMEDICINE VISIT Modified Protocol for treatment of other conditions supportive of goal to minimize vulnerable patient exposure to Covid-19 [facility] Emergency Consented for encounter Patient verified by name and Regla Prajapati [id number] 1970 SUBJECTIVE: The [facility] for pain in the diffuse pain. It is described as: aching(+) burning(+) stabbing(-) The patient rates it as a 7/10. The pain is worse when the patient performs the following actions: walking. FH: patient denies any family history of the chief complaint for this visit SH: denies illicit drug use Is the patient receiving analgesia/pain relief from the current medications? (+) Has the current medication improved activities of daily living? (+) Have the current medications been associated with any adverse events? (-) Has the patient displayed any aberrant drug-related behaviors? (-) Last took opioid medication: n/a Relevant [place] records were reviewed. ASSEMMENT AND MEDICAL DECISION MAKING The patient is a 51 year old female with diffuse pain episode of renal insuffic at [facility]? we dont have those records to review no benefit perceived from lyrica so ok to taper off never started log of physical function so hard to tell if improved I reiterated need to Track physical function and functional confucianist Dx: Neuralgia and neuritis (primary encounter diagnosis) Cad, multiple vessel Rajesh (generalized anxiety disorder) PLAN as above LDN track walking consider [facility] recovery program Orders Placed This Encounter naltrexone capsule 4.5 mg (CPD) Sig: Take 1 capsule by mouth once daily. Dispense: 30 capsule Refill: 5 Order Comments: Compound Medication I spent a total of 25 minutes on the date of the service which included preparing to see the patient, [id number] patient care, completing clinical documentation, obtaining and/or reviewing separately obtained history, counseling and educating the patient/family/caregiver, ordering medications, tests, or procedures, communicating with other HCPs (not separately reported), independently interpreting results (not separately reported), communicating results to the patient/family/caregiver and care coordination (not separately reported).Of this, greater than 50% of this was spent for purposes of education and counseling regarding the diagnosis and treatment of pain. Patient is aware that any diagnostic testing is best discussed in person or by telemedicine visit to fully explain the significance and resulting treatment plan. Patient agrees with above. Mikey Palomo MD October 18[facility]06-14-[facility] History of Present illness Narrative* Mikey Palomo MD - 2021 5:02 PM EDT TELEMEDICINE VISIT Modified Protocol for treatment of other conditions supportive of goal to minimize vulnerable patient exposure to Covid-19 [facility] Emergency Consented for encounter Patient verified by name and Regla Prajapati [id number] 1970 SUBJECTIVE: The [facility] for pain in the diffuse pain. It is described as: aching(+) burning(+) stabbing(-) The patient rates it as a 7/10. The pain is worse when the patient performs the following actions: walking. FH: patient denies any family history of the chief complaint for this visit SH: denies illicit drug use Is the patient receiving analgesia/pain relief from the current medications? (+) Has the current medication improved activities of daily living? (+) Have the current medications been associated with any adverse events? (-) Has the patient displayed any aberrant drug-related behaviors? (-) Last took opioid medication: n/a Relevant [place]AR[place] records were reviewed. ASSEMMENT AND MEDICAL DECISION MAKING The patient is a 51 year old female with diffuse pain episode of renal insuffic at [facility]? we dont have those records to review no benefit perceived from lyrica so ok to taper off never started log of physical function so hard to tell if improved I reiterated need to Track physical function and functional confucianist Dx: Neuralgia and neuritis (primary encounter diagnosis) Cad, multiple vessel Rajesh (generalized anxiety disorder) PLAN as above LDN track walking consider [facility] recovery [facility] Orders Placed This Encounter naltrexone capsule 4.5 mg (CPD) Sig: Take 1 capsule by mouth once daily. Dispense: 30 capsule Refill: 5 Order Comments: Compound Medication I spent a total of 25 minutes on the date of the service which included preparing to see the patient, [id number] patient care, completing clinical documentation, obtaining and/or reviewing separately obtained history, counseling and educating the patient/family/caregiver, ordering medications, alexa ts, or procedures, communicating with other HCPs (not separately reported), independently interpreting results (not separately reported), communicating results to the patient/family/caregiver and care coordination (not separately reported).Of this, greater than 50% of this was spent for purposes ofeducation and counseling regarding the diagnosis and treatment of pain. Patient is aware that any diagnostic testing is best discussed in person or by telemedicine visit to fully explain the significance and resulting treatment plan. Patient agrees with above. Mikey Palomo MD 2021 documented in this encounterFisher-[facility]05-17-2022 NoteHNO ID: [id number] Author: Ting Camilo MD Service: ? Author Type: Physician Type: Progress Notes Filed: 09/20/2021 3:28 PM Note Text: Chief complaint: follow up NANCY HPI: Ms. Boston is a 50yo female here for followup bilateral NANCY in the setting of diffuse atherosclerotic disease with preserved renal function. Previously on lisinopril, using prazosin for other reasons. A few weeks back, she developed HTN and hypotension on Easter, then developed diarrhea and the following day passed out with severe hypotension requiring admission. CURT with SCr by her report over 2, repeat by primary care office 08/29 was 1.0mg/dL (I viewed on her portal on her phone). She remains on the lisinopril 10mg once daily. Renal doppler done Apr 2021 was unchanged from 04/2020. PAST MEDICAL HISTORY Diagnosis Date - Allergic rhinitis, cause unspecified Allergy, airborne subst - Anxiety state - Dyspareunia - Essential hypertension - Fibromyalgia - Genital herpes, unspecified under control Genital herpes - Irritable bowel syndrome Irritable bowel - Other and unspecified ovarian cyst 5 y/a Ovarian cyst - Peripheral vascular disease (HCC) extensive, S/p right carotid stent and right iliac artery stent - Renal artery stenosis (HCC) right - Varicella without mention of complication Chickenpox PAST SURGICAL HISTORY Procedure Laterality Date - COLONOSCOPY FLX DX W/COLLJ SPEC WHEN PFRMD 04/07/02 Colonoscopy - LAPS ABD PRTMANDOMENTUM DX W/WO SPEC BR/WA SPX 5 yrs ago Laparoscopy Current Outpatient Medications Medication Sig - tiZANidine HCl 4 mg capsule Take 4 mg by mouth twice daily as needed. - buPROPion HCL 200 mg 12 hr tablet Take 200 mg by mouth twice daily. - ALPRAZolam (XANAX) 0.5 mg tablet Take 0.5 mg by mouth three times daily as needed. - omeprazole (PRILOSEC) 20 mg capsule 40 mg once daily. - lisinopril (ZESTRIL, PRINIVIL) 5 mg tablet Take 1 tablet by mouth once daily. - ezetimibe (ZETIA) 10 mg tablet Take 1 tablet by mouth once daily. - atorvastatin (LIPITOR) 40 mg tablet Take 1 tablet by mouth daily at bedtime. - clopidogrel (PLAVIX) 75 mg tablet TAKE 1 TABLET BY MOUTH ONCE DAILY FOR 14 DAYS - aspirin, enteric coated (ASPIRIN, ENTERIC COATED) 81 mg EC tablet Take 81 mg by mouth once daily. - cholecalciferol (VITAMIN D) 1,000 unit tab tablet Take 1 capsule by mouth once daily. No current facility-administered medications for this visit. ALLERGIES Allergen Reactions - Amlodipine Swelling BLE swelling - Penicillins Social History Tobacco Use - Smoking status: Former Smoker Packs/day: 0.50 Years: 15.00 Pack years: 7.50 Quit date: 12/22/2018 Years since quittin.7 - Smokeless tobacco: Never Used Substance Use Topics - Alcohol use: Not Currently Alcohol/week: 1.7 standard drinks - Drug use: No FAMILY HISTORY Problem Relation Age of Onset - other (brain aneurism) Mother age 46 - other (healthy) Father 53 yrs. - other (healthy) Sister 26 yrs. Review of systems: General: Negative for weight loss, night sweats, fever, and fatigue Head/Neck: Negative for metallic or bitter taste Cardiac: Positive for syncope, lightheadedness, and chest pain or pressure; Negative for palpitations, and dizziness Vascular: Positive for edema; Pulmonary: Positive for dyspnea; Negative for cough GastroIntestinal: Positive for constipation; Negative for nausea, loss of appetite, emesis, diarrhea, and abdominal pain Genito-Urinary: Negative for pink or red urine, pain with urination, groin pain, flank pain, and decreased urine Hematology: Positive for easy bruising; Other: Positive for daytime somnolence; BP 129/85 Pulse 90 Temp 36.5 ?C (97.7 ?F) (Oral) Ht 157.5 cm (5' 2 ) Wt 77.1 kg (169 lb 14.4 oz) BMI 31.08 kg/m? BP ? standardized method Pulse 1 BP #1: 120/82 Pulse #1: 90 beats/min 2 BP #2 : 136/86 Pulse #2 : 91 beats/min 3 BP #3 : 130/87 Pulse #3 : 91 beats/min Average Average BP: 129/85 Average Pulse: 90 beats/min Orthostatic vitals Supine Sitting Standing Standing BP : 130/94 Standing pulse : 97 BP cuff location BP cuff location: Left upper arm BP cuff size BP cuff size: regular adult Comments for BP values Comments for BP values: none First BP (right) First BP (left) Exam: Constitutional: Mental status: alert and oriented x4. No acute distress. ENT: Eyes: No icterus, not injected. Cardiovascular: Heart: normal rate, regular rhythm, no murmurs, no rubs. Lungs: Symmetric lung expansion. Clear to auscultation without wheezes, rales or rubs. Extremities: No edema Skin: No jaundice Labs reviewed Creatinine (mg/dL) Date Value 04/07/2021 1.03 03/16/2021 0.99 03/16/2021 1.01 04/15/2020 0.77 01/26/2020 0.83 BUN (mg/dL) Date Value 04/07/2021 17 03/16/2021 14 03/16/2021 14 04/15/2020 15 01/26/2020 17 Component Latest Ref Rng AND Units 09/20/2021 Color Yellow Light Ye (more content not included)...[facility] 09-20-2021 Instructions* Patient Instructions* Ting Camilo MD - 09/20/2021 3:25 PM EDT No changes in meds I will review your case with some colleagues to make sure we don't think something else is going on Return 6 months documented in this encounterFisher[facility]05-17-2022 History of Present illness Narrative* Ting Camilo MD - 09/20/2021 3:06 PM EDT Chief complaint: follow up NANCY HPI: Ms. Boston is a 50yo female here for followup bilateral NANCY in the setting of diffuse atherosclerotic disease with preserved renal function. Previously on lisinopril, using prazosin for other reasons. A few weeks back, she developed HTN and hypotension on Easter, then developed diarrhea and the following day passed out with severe hypotension requiring admission. CURT with SCr by her report over 2, repeat by primary care office 08/29 was 1.0mg/dL (I viewed on her portal on her phone). She remains on the lisinopril 10mg once daily. Renal doppler done Apr 2021 was unchanged from 04/2020. PAST MEDICAL HISTORY Diagnosis Date Allergic rhinitis, cause unspecified Allergy, airborne subst Anxiety state Dyspareunia Essential hypertension Fibromyalgia Genital herpes, unspecified under control Genital herpes Irritable bowel syndrome Irritable bowel Other and unspecified ovarian cyst 5 y/a Ovarian cyst Peripheral vascular disease (HCC) extensive, S/p right carotid stent and right iliac artery stent Renal artery stenosis (HCC) right Varicella without mention of complication Chickenpox PAST SURGICAL HISTORY Procedure Laterality Date COLONOSCOPY FLX DX W/COLLJ SPEC WHEN PFRMD 04/07/02 Colonoscopy LAPS ABD PRTM&OMENTUM DX W/WO SPEC BR/WA SPX 5 yrs ago Laparoscopy Current Outpatient Medications Medication Sig tiZANidine HCl 4 mg capsule Take 4 mg by mouth twice daily as needed. buPROPion HCL 200 mg 12 hr tablet Take 200 mg by mouth twice daily. ALPRAZolam (XANAX) 0.5 mg tablet Take 0.5 mg by mouth three times daily as needed. omeprazole (PRILOSEC) 20 mg capsule 40 mg once daily. lisinopril (ZESTRIL, PRINIVIL) 5 mg tablet Take 1 tablet by mouth once daily. ezetimibe (ZETIA) 10 mg tablet Take 1 tablet by mouth once daily. atorvastatin (LIPITOR) 40 mg tablet Take 1 tablet by mouth daily at bedtime. clopidogrel (PLAVIX) 75 mg tablet TAKE 1 TABLET BY MOUTH ONCE DAILY FOR 14 DAYS aspirin, enteric coated (ASPIRIN, ENTERIC COATED) 81 mg EC tablet Take 81 mg by mouth once daily. cholecalciferol (VITAMIN D) 1,000 unit tab tablet Take 1 capsule by mouth once daily. No current facility-administered medications for this visit. ALLERGIES Allergen Reactions Amlodipine Swelling BLE swelling Penicillins Social History Tobacco Use Smoking status: Former Smoker Packs/day: 0.50 Years: 15.00 Pack years: 7.50 Quit date: 12/22/2018 Years since quittin.7 Smokeless tobacco: Never Used Substance Use Topics Alcohol use: Not Currently Alcohol/week: 1.7 standard drinks Drug use: No FAMILY HISTORY Problem Relation Age of Onset other (brain aneurism) Mother age 46 other (healthy) Father 53 yrs. other (healthy) Sister 26 yrs. Review of systems: General: Negative for weight loss, night sweats, fever, and fatigue Head/Neck: Negative for metallic or bitter taste Cardiac: Positive for syncope, lightheadedness, and chest pain or pressure; Negative for palpitations, and dizziness Vascular: Positive for edema; Pulmonary: Positive for dyspnea; Negative for cough GastroIntestinal: Positive for constipation; Negative for nausea, loss of appetite, emesis, diarrhea, and abdominal pain Genito-Urinary: Negative for pink or red urine, pain with urination, groin pain, flank pain, and decreased urine Hematology: Positive for easy bruising; Other: Positive for daytime somnolence; BP 129/85 Pulse 90 Temp 36.5 C (97.7 F) (Oral) Ht 157.5 cm (5' 2 ) Wt 77.1 kg (169 lb 14.4 oz) BMI 31.08 kg/m BP standardized method Pulse 1 BP #1: 120/82 Pulse #1: 90 beats/min 2 BP #2 : 136/86 Pulse #2 : 91 beats/min 3 BP #3 : 130/87 Pulse #3 : 91 beats/min Average Average BP: 129/85 Average Pulse: 90 beats/min Orthostatic vitals Supine Sitting Standing Standing BP : 130/94 Standing pulse : 97 BP cuff location BP cuff location: Left upper arm BP cuff size BP cuff size: regular adult Comments for BP values Comments for BP values: none First BP (right) First BP (left) Exam: Constitutional: Mental status: alert and oriented x4. No acute distress. ENT: Eyes: No icterus, not injected. Cardiovascular: Heart: normal rate, regular rhythm, no murmurs, no rubs. Lungs: Symmetric lung expansion. Clear to auscultation without wheezes, rales or rubs. Extremities: No edema Skin: No jaundice Labs reviewed Creatinine (mg/dL) Date Value 04/07/2021 1.03 03/16/2021 0.99 03/16/2021 1.01 04/15/2020 0.77 01/26/2020 0.83 BUN (mg/dL) Date Value 04/07/2021 17 03/16/2021 14 03/16/2021 14 04/15/2020 15 01/26/2020 17 Component Latest Ref Rng & Units 09/20/2021 Color Yellow Light Yellow Clarity Clear Clear Glucose, Urine Negative Negative Bilirubin, Urine Negative Negative Ketones, Urine Negative Negative Specific [place], Ur 1.005 - 1.030 1.009 Hemoglobin/Blood,Ur Negative Negative pH, Urine 5.0 - 8.0 6.5 Protein, Urine Negative Negative Urobilinogen Negative Negative Nitrites Negative Negative Leukest Negative Negative Assessment/Plan- 1) Renal artery stenosis with diffuse vascular disease: review of CT non con showed minimal calcifications at her aorta or RA oriffices. CTA of her abdomen showed only 30% NANCY vs the 60-99% seen on doppler. Given the discrepancies, I am going to review her case with vascular medicine to make sure we are dealing with standard atherosclerotitic disease and not another form of vasculopathy. Fully recovered from her CURT on outside labs. No need to repeat today. 2) Hypertension: well controlled currently, no changes. Unclear if volume depletion is solely to blame for her admission last month but for now she seems clinically stable. Plan: No changes in meds I will review your case with some colleagues to make sure we don't think something else is going on Return 6 months Ting Camilo MD documented in this encounterFisher-[facility]05-17-2022 NotePatient Outreach (MIRTA) ALOERGLA ([id number]) 1970 F Date Time Provider Department 09/20/21 TING CAMILO During your visit today, we recorded the following information about you: Allergies As of Date: 09/20/2021 Noted Allergy Reaction AMLODIPINE 05/08/2019 7 - Swelling Comments: BLE swelling PENICILLINS 04/24/2002 Date Reviewed: 09/20/2021 Reviewed by: Ting Camilo MD - Fully Assessed Visit Diagnosis:Screening for genitourinary condition [Z13.89] Order(s):URINALYSIS, REFLEX MICROSCOPIC [ZGI6015] Order #: [id number]. #:[id number] Prescriptions as of 09/23/2021 - tiZANidine HCl 4 mg capsule Take 4 mg by mouth twice daily as needed. - buPROPion HCL 200 mg 12 hr tablet Take 200 mg by mouth twice daily. - ALPRAZolam (XANAX) 0.5 mg tablet Take 0.5 mg by mouth three times daily as needed. - omeprazole (PRILOSEC) 20 mg capsule 40 mg once daily. - lisinopril (ZESTRIL, PRINIVIL) 5 mg tablet Take 1 tablet by mouth once daily. - ezetimibe (ZETIA) 10 mg tablet Take 1 tablet by mouth once daily. - atorvastatin (LIPITOR) 40 mg tablet Take 1 tablet by mouth daily at bedtime. - clopidogrel (PLAVIX) 75 mg tablet TAKE 1 TABLET BY MOUTH ONCE DAILY FOR 14 DAYS - aspirin, enteric coated (ASPIRIN, ENTERIC COATED) 81 mg EC tablet Take 81 mg by mouth once daily. - cholecalciferol (VITAMIN D) 1,000 unit tab tablet Take 1 capsule by mouth once daily. Problem List As Of Date 09/20/2021 Noted Resolved GOITER NOS [E04.9] 04/24/2002 OTHER MALAISE AND FATIGUE [R53.81, R53.83] 04/24/2002 PVD (peripheral vascular disease) (HCC) [I73.9] 03/19/2019 Essential hypertension [I10] 03/19/2019 Dyslipidemia [E78.5] 03/19/2019 Chest pain [R07.9] 03/19/2019 Dyspnea on exertion [R06.00] 03/19/2019 Bilateral carotid artery stenosis [I65.23] 04/17/2019 Bilateral arm weakness [R29.898] 04/17/2019 Atherosclerosis [I70.90] 04/17/2019 Renal artery stenosis (HCC) [I70.1] 05/08/2019 TIA (transient ischemic attack) [G45.9] 01/26/2020 01/27/2020 Hyperventilation [R06.4] 01/27/2020 04/14/2021 PTSD (post-traumatic stress disorder) [F43.10] 09/11/2019 Hyperlipidemia [E78.5] 04/14/2020 Hiatal hernia [K44.9] 04/06/2020 Hemorrhoids [K64.9] 04/06/2020 Encounter Status:Closed by Addictive, PRODUSER on 09/23/21[facility] 09-09-2021 NoteHNO ID: [id number] Author: Vik Sutherland MD Service: ? Author Type: Physician Type: Progress Notes Filed: 09/09/2021 1:56 PM Note Text: CHIEF COMPLAINT:? Shortness of breath ? HISTORY OF PRESENT ILLNESS: is a 50 year old female with a?PMH significant for dyslipidemia, HTN, PAD with carotid stenosis s/p?ostial?right common carotid?12/24 Precise self expandable?stent?placement just above the aortic arch?and?02/03 self expandable?right?common?iliac stent, aberrant retropharyngeal right subclavian artery,?tobacco use disorder (quit 06/2017),?hypertriglyceridemia,?IBS,?depression and?anxiety disorder?who presents for a follow up visit. She continues to have weakness in both upper arms with folding laundry or other repetitive activities, and with raising her arms over her head. She has shortness of breath daily, not related to activity, feels like pressure/tightness on her chest making it hard to breathe. She has had some dry cough since starting lisinopril, not horrible and wanted to make us aware. She felt like her face was swollen and so were her legs after stopping HCTZ but that's improved somewhat. ? Her mood is horrible, cries all the time, has been snapping at people, family feud at home, worried about her health and her disability application denied. She has an appointment with a therapist coming up.? ? IMPRESSION: Dyspnea Anxiety and depression HTN Peripheral vascular disease Hypertriglyceridemia? ? PLAN AND RECOMMENDATIONS: Dyspnea: Unclear the exact cause as symptoms happen with so many different instances including bloating, laughing a lot, exertion or rest. 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 Evaluation so far includes coronary angiography 03/28/19 with no significant disease, echo 03/19/19 with normal LVEF, diastolic function and no significant valvular abnormalities. Encouraged her to continue physical activity as tolerated. She will see her PCP regarding evaluation for bloating given her history of IBS.? ? Anxiety and depression: She will start therapy soon, continue vortioxetine 10mg and clonazepam per psychiatry team. She is very anxious about her health among other things at home, so we spent time reassuring her that imaging does not show abnormalities like a brain aneurysm which her mother of at age 46. ? HTN: Did not tolerate amlodipine 10mg due to swelling. She felt sun sensitivity on HCTZ 25mg. Currently tolerating lisinopril 5mg though has a mild cough. Advised her that we could try losartan if cough persists, or a different antihypertensive.? ? Peripheral vascular disease: S/p right ostial carotid and right common iliac artery stents. She has 60-99% right and 0-59% left renal artery stenosis. She complains of weakness of both arms with repetitive activities or raising her arms to comb her hair. It is not clear if these symptoms are related to the noted CTA abnormalities. Appreciate input from the vascular medicine and surgery colleagues. Continue medical management with aspirin 81mg, clopidogrel 75mg, atorvastatin 40mg, ezetimibe 10mg every day.? ? Hypertriglyceridemia: TG has improved since starting atorvastatin. She will start taking ezetimibe 10mg. ? Follow up in 6-8 weeks.?? ? PHYSICAL EXAMINATION: BP 107/74 ? Pulse 68 ? Ht 157.5 cm (5' 2 ) ? Wt 68.3 kg (150 lb 9.6 oz) ? BMI 27.55 kg/m? ? HEENT:?normocephalic, EOMI?? Neck: No JVD, no carotid bruits Heart:?regular rhythm,?normal rate,?no murmur, rub or gallop? Lungs:?clear to auscultation? Abdomen:?bowel sounds present , nontender, nondistended? Extremities:?no edema , peripheral pulses intact Musculoskeletal:?chest wall nontender? Neurological:??alert and oriented , no focal motor deficits appreciated Psychiatric:?appropriate and cooperative? Skin:?no rash, cellulitis or lesions appreciated? ? CARDIOVASCULAR MEDICINE TESTING: I have personally reviewed??laboratory results, echocardiogram report, cardiac catheterization report and vascular imaging report ? CTA upper extremities 11/27/19 IMPRESSION: * ?Aberrant right subclavian artery arising off the more distal aspect of the thoracic arch: moderate to severe stenosis at its origin due to eccentric plaque. * ?Mild left subclavian artery origin stenosis. * ?Streak artifact from the innominate vein contrast limits evaluation of bilateral carotid artery origins. * ?The right common carotid artery is the first vessel arising off the arch, is status post stent placement and imaging suggestive of significant in-stent restenosis. * ?Imaging suggests significant stenosis origin of left common carotid artery. ? PAST CARDIAC HISTORY: 03/04/19?Right carotid stent placement?just above the arch 03/04/19 Right iliac artery stent placement ? PAST MEDICAL HISTORY ? ? ? PAST MEDICAL HISTORY D (more content not included)...[facility]05-06-2022 History of Present illness Narrative* Vik Sutherland MD - 09/09/2021 1:37 PM EDT CHIEF COMPLAINT: Shortness of breath HISTORY OF PRESENT ILLNESS: Ms. Prajapati is a 50 year old female with a PMH significant for dyslipidemia, HTN, PAD with carotid stenosis s/p ostial right common carotid 12/24 Precise self expandable stent placement just above the aortic arch and 02/03 self expandable right common iliac stent, aberrant retropharyngeal right subclavian artery, tobacco use disorder (quit 06/2017), hypertriglyceridemia, IBS, depression and anxiety disorder who presents for a follow up visit. She continues to have weakness in both upper arms with folding laundry or other repetitive activities, and with raising her arms over her head. She has shortness of breath daily, not related to activity, feels like pressure/tightness on her chest making it hard to breathe. She has had some dry cough since starting lisinopril, not horrible and wanted to make us aware. She felt like her face was swollen and so were her legs after stopping HCTZ but that's improved somewhat. Her mood is horrible, cries all the time, has been snapping at people, family feud at home, worriedabout her health and her disability application denied. She has an appointment with a therapist coming up. IMPRESSION: Dyspnea Anxiety and depression HTN Peripheral vascular disease Hypertriglyceridemia PLAN AND RECOMMENDATIONS: Dyspnea: Unclear the exact cause as symptoms happen with so many different instances including bloating, laughing a lot, exertion or rest. 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 Evaluation so far includes coronary angiography 03/28/19 with no significant disease, echo 03/19/19with normal LVEF, diastolic function and no significant valvular abnormalities. Encouraged her to continue physical activity as tolerated. She will see her PCP regarding evaluation for bloating given her history of IBS. Anxiety and depression: She will start therapy soon, continue vortioxetine 10mg and clonazepam per psychiatry team. She is very anxious about her health among other things at home, so we spent time reassuring her that imaging does not show abnormalities like a brain aneurysm which her mother of at age 46. HTN: Did not tolerate amlodipine 10mg due to swelling. She felt sun sensitivity on HCTZ 25mg. Currently tolerating lisinopril 5mg though has a mild cough. Advised her that we could try losartan if cough persists, or a different antihypertensive. Peripheral vascular disease: S/p right ostial carotid and right common iliac artery stents. She [id number]% right and 0-59% left renal artery stenosis. She complains of weakness of both arms with repetitive activities or raising her arms to comb her hair. It is not clear if these symptoms are related to the noted CTA abnormalities. Appreciate input from the vascular medicine and surgery colleagues. Continue medical management with aspirin 81mg, clopidogrel 75mg, atorvastatin 40mg, ezetimibe 10mg every day. Hypertriglyceridemia: TG has improved since starting atorvastatin. She will start taking ezetimibe 10mg. Follow up in 6-8 weeks. PHYSICAL EXAMINATION: BP 107/74 Pulse 68 Ht 157.5 cm (5' 2 ) Wt 68.3 kg (150 lb 9.6 oz) BMI 27.55 kg/m HEENT: normocephalic, EOMI Neck: No JVD, no carotid bruits Heart: regular rhythm, normal rate, no murmur, rub or gallop Lungs: clear to auscultation Abdomen: bowel sounds present , nontender, nondistended Extremities: no edema , peripheral pulses intact Musculoskeletal: chest wall nontender Neurological: alert and oriented , no focal motor deficits appreciated Psychiatric: appropriate and cooperative Skin: no rash, cellulitis or lesions appreciated CARDIOVASCULAR MEDICINE TESTING: I have personally reviewed laboratory results, echocardiogram report, cardiac catheterization report and vascular imaging report CTA upper extremities 11/27/19 IMPRESSION: * Aberrant right subclavian artery arising off the more distal aspect of the thoracic arch: moderate to severe stenosis at its origin due to eccentric plaque. * Mild left subclavian artery origin stenosis. * Streak artifact from the innominate vein contrast limits evaluation of bilateral carotid artery origins. * The right common carotid artery is the first vessel arising off the arch, is status post stent placement and imaging suggestive of significant in-stent restenosis. * Imaging suggests significant stenosis origin of left common carotid artery. PAST CARDIAC HISTORY: 03/04/19 Right carotid stent placement just above the arch 03/04/19 Right iliac artery stent placement PAST MEDICAL HISTORY PAST MEDICAL HISTORY Diagnosis Date Allergic rhinitis, cause unspecified Allergy, airborne subst Dyspareunia Genital herpes, unspecified under control Genital herpes Irritable bowel syndrome Irritable bowel Other and unspecified ovarian cyst 5 y/a Ovarian cyst Peripheral vascular disease (HCC) S/p right carotid stent and right iliac artery stent Varicella without mention of complication Chickenpox PAST SURGICAL HISTORY PAST SURGICAL HISTORY Procedure Laterality Date COLONOSCOP W/ OR W/O BRS SPEC 04/07/02 Colonoscopy L'SCOPE DX W/WO BRUSHINGS/WASHINGS 5 yrs ago Laparoscopy SOCIAL HISTORY Social History Tobacco Use Smoking status: Former Smoker Packs/day: 0.50 Years: 15.00 Pack years: 7.50 Last attempt to quit: 12/22/2018 Years since quittin.9 Smokeless tobacco: Never Used Substance Use Topics Alcohol use: Yes Alcohol/week: 1.7 standard drinks Drug use: No FAMILY HISTORY FAMILY HISTORY Problem Relation Age of Onset other (brain aneurism) Mother age 46 other (healthy) Father 53 yrs. other (healthy) Sister 26 yrs. ALLERGIES ALLERGIES Allergen Reactions Amlodipine Swelling BLE swelling Penicillins CURRENT MEDICATIONS: CURRENT MEDICATIONS ezetimibe (ZETIA) 10 mg tablet Take 1 tablet by mouth once daily. vortioxetine (TRINTELLIX) 10 mg tab Take by mouth. taking 1 1/2 tablets currently lisinopril (ZESTRIL, PRINIVIL) 5 mg tablet Take 1 tablet by mouth once daily. prazosin (MINIPRESS) 1 mg cap Take 2 mg by mouth daily at bedtime. atorvastatin (LIPITOR) 40 mg tablet Take 1 tablet by mouth daily at bedtime. clopidogrel (PLAVIX) 75 mg tablet TAKE 1 TABLET BY MOUTH ONCE DAILY FOR 14 DAYS clonazePAM (KLONOPIN) 0.5 mg tablet Take 0.5 mg by mouth twice daily. aspirin, enteric coated (ASPIRIN, ENTERIC COATED) 81 mg EC tablet Take 81 mg by mouth once daily. cholecalciferol (VITAMIN D) 1,000 unit tab tablet Take 1 capsule by mouth once daily. estrogens conjugated (PREMARIN) 0.45 mg tablet Take 0.45 mg by mouth once daily. Note Details Instructions Return in about 6 weeks (around 01/13/2020). We will see you back in about 6 weeks. The patient presents today in transfer, after being followed by Dr. Yoder. The patient underwent recent evaluation, at [facility] in [place], for dizzy spells/syncope. BP: 102/70 CA: 96 Wt: 165 lbs Clinical cardiac examination was unremarkable, however, the patient has significant peripheral vascular disease. Left heart catheterization, March 2019, revealed mild luminal irregularity of a small circumflex, with the remainder of the coronary arteries being normal. At this time, the patient hs no evidence or suggestion of cardiac decompensation. After reviewing her current medication regimen, in the setting of an excellent lipid profile, I seeno reason to make any changes. The patient will follow with vascular surgery as scheduled and with nephrology for further evaluation of her renal artery stenosis. The patient will follow with the electrophysiology service for further evaluation of dizzy spells/syncope. The patient will follow with me in the office on an annual basis. Essential hypertension (primary encounter diagnosis) Dizziness Dyspnea on exertion Pvd (peripheral vascular disease) ([facility]) Vik Sutherland MD [facility] NoteHNO ID: [id number] Author: RT Leda(R) Service: ? Author Type: Technologist Type: Progress Notes Filed: 08/12/2021 11:38 AM Note Text: Radiology Service Progress Note PATIENT NAME: Regla Prajapati DATE OF SERVICE: August 12, 2021 TIME: 11:38 AM PATIENT IDENTITY VERIFICATION COMPLETED USING TWO (2) IDENTIFIERS: Name and Date of confirmed by patient verbally. FALL SCREENING: Has the patient had 2 falls in the last year or 1 fall with injury or currently using an Ambulatory Assistive Device (Walker, Cane, Wheelchair, Crutches, etc.)? No PATIENT GENDER DATA: Female. status: : No status: NO. PATIENT RELEVANT IMPLANT DATA REVIEWED: Not Applicable RADIOLOGY DEPARTMENT: Bone Density PERIPHERAL IV DATA: Not applicable SIGNED BY: RT Leda(R) August 12, 2021 11:38 AMBe[id number] History of Present illness Narrative* RT Leda(R) - 08/12/2021 11:15 AM EDT Radiology Service Progress Note PATIENT NAME: Regla Prajapati DATE OF SERVICE: August 12, 2021 TIME: 11:38 AM PATIENT IDENTITY VERIFICATION COMPLETED USING TWO (2) IDENTIFIERS: Name and Date of confirmedby patient verbally. FALL SCREENING: Has the patient had 2 falls in the last year or 1 fall with injury or currently using an Ambulatory Assistive Device (Walker, Cane, Wheelchair, Crutches, etc.)? No PATIENT GENDER DATA: Female. status: : No status: NO. PATIENT RELEVANT IMPLANT DATA REVIEWED: Not Applicable RADIOLOGY DEPARTMENT: Bone Density PERIPHERAL IV DATA: Not applicable SIGNED BY: RT Leda(R) August 12, 2021 11:38 AM documented in this encounter[facility]04-06-2022 Instructions* Patient Instructions* Mikey Palomo MD - 08/10/2021 2:49 PM EDT BONE MINERAL DENSITY PATIENT INSTRUCTIONS Bone mineral density testing measures the amount of calcium in certain parts of your bones. This information determines how strong your bones are. The test is used to detect osteoporosis, a disease in which the bone's mineral content and density are low, increasing a person's risk of fractures. Thelumbar spine (lower back) and the hip are the skeletal sites usually examined. For the test, remember that: 1. You cannot take this test if you are . 2. Eat a normal diet on the day of the test. 3. Take your medications as you normally would. 4. DO NOT take calcium supplements (such as Tums) for 24 hours before the test. 5. On the day of the test, leave valuables (jewelry or credit cards) at home. 6. The test should be performed prior to oral, rectal or IV contrast studies, or at least 7 days after any of these studies. For the test, you may be asked to wear a hospital gown. You will lie on your back, on a padded table, in a comfortable position. Generally, you can resume your usual activities immediately. documented in this [facility]04-[facility]22 History of Present illness Narrative* Mikey Palomo MD - 08/10/2021 1:40 PM EDT History and Physical Assessment Patient Name: Regla Prajapati MR #: [id number] Age: [age] year old Date: August 10, 2021 Referred by: Dr. Caban Chief Complaint: This patient is a 50 year old female who presents today with complaints of neck and back. Past History of Pain in similar or same area: No Started following: Pain just began on it's own. Started originally 3 years ago. Was treated with lyrica, tizanidine Previous Treatments: OTC Meds: None Effect: no relief Prescription Meds: muscle relaxers Effect: some General: n/a. Effect: no relief Assistive Devices: NA Physical Therapy: No Injection(s): No Previous Surgery: No Imaging Results: xrays and mri This Episode: Date of Onset for this episode: 3 years Pattern: Constant. Character: Burning, Sharp and Aching. Severity: VAS Pain: 4/10 Current; 9/10 Worst; 4/10 Best. Location: neck and back Radiation: radiating to arms and legs. Exacerbating Factors: Bending, Lifting, Walking and Standing. Alleviating Factors: Nothing makes my pain better . Associated Signs/Symptoms: Sleep disturbance; awakens during night due to pain. Sensory/Motor Changes: Tingling, Numbness or Weakness. Dropping things Progressive Weakness?: Yes. AM Stiffness?: Yes. Duration: few minutes. Changes in Bowel/Bladder Control?: No. Location of Joint Swelling: Hands. Location of Joint Pain: Knees, Hands and Low Back. Effects of Pain: Personal Care: Independent . Household Tasks: Independent . Job Functions: Independent . Review of Systems: General Appearance: well developed, well groomed and pleasant. General: Normal/Negative. Skin: Normal/Negative. Heart/Lungs: Normal/Negative. GI: Normal/Negative. /MIXER BLENDER: Normal/Negative. Heme: Normal/Negative. Endo: Normal/Negative. Neuro: Normal/Negative. HEENT: headaches Skeletal: muscle pains. PAST MEDICAL HISTORY Diagnosis Date Allergic rhinitis, cause unspecified Allergy, airborne subst Anxiety state Dyspareunia Essential hypertension Fibromyalgia Genital herpes, unspecified under control Genital herpes Irritable bowel syndrome Irritable bowel Other and unspecified ovarian cyst 5 y/a Ovarian cyst Peripheral vascular disease (HCC) extensive, S/p right carotid stent and right iliac artery stent Renal artery stenosis (HCC) right Varicella without mention of complication Chickenpox PAST SURGICAL HISTORY Procedure Laterality Date COLONOSCOPY FLX DX W/COLLJ SPEC WHEN PFRMD 04/07/02 Colonoscopy LAPS ABD PRTM&OMENTUM DX W/WO SPEC BR/WA SPX 5 yrs ago Laparoscopy Social History Tobacco Use Smoking status: Former Smoker Packs/day: 0.50 Years: 15.00 Pack years: 7.50 Quit date: 12/22/2018 Years since quittin.6 Smokeless tobacco: Never Used Substance Use Topics Alcohol use: Not Currently Alcohol/week: 1.7 standard drinks Drug use: No FAMILY HISTORY Problem Relation Age of Onset other (brain aneurism) Mother age 46 other (healthy) Father 53 yrs. other (healthy) Sister 26 yrs. [id number] Allergies: ALLERGIES Allergen Reactions Amlodipine Swelling BLE swelling Penicillins Current Outpatient Medications: pregabalin (LYRICA) 100 mg capsule Take 100 mg by mouth twice daily. tiZANidine HCl 4 mg capsule Take 4 mg by mouth twice daily as needed. buPROPion HCL 200 mg 12 hr tablet Take 200 mg by mouth twice daily. ALPRAZolam (XANAX) 0.5 mg tablet Take 0.5 mg by mouth three times daily as needed. omeprazole (PRILOSEC) 20 mg capsule 40 mg once daily. lisinopril (ZESTRIL, PRINIVIL) 5 mg tablet Take 1 tablet by mouth once daily. ezetimibe (ZETIA) 10 mg tablet Take 1 tablet by mouth once daily. atorvastatin (LIPITOR) 40 mg tablet Take 1 tablet by mouth daily at bedtime. clopidogrel (PLAVIX) 75 mg tablet TAKE 1 TABLET BY MOUTH ONCE DAILY FOR 14 DAYS aspirin, enteric coated (ASPIRIN, ENTERIC COATED) 81 mg EC tablet Take 81 mg by mouth once daily. cholecalciferol (VITAMIN D) 1,000 unit tab tablet Take 1 capsule by mouth once daily. Is patient on blood thinners? Yes. Prescribed by Dr. Henderson Patient feels safe at home: Yes Director Of Outside Sales: Emily Sykes MA Imaging Studies: none Is the patient receiving analgesia/pain relief from the current medications? (-) Has the current medication improved activities of daily living? (-) Have the current medications been associated with any adverse events? (-) Has the patient displayed any aberrant drug-related behaviors? (-) Illicit drug use? (-) Patient denies loss of bowel or bladder control, unintentional weight loss, h/o malignancy, fevers/chills/night sweats. FH: Patient denies a family history of the current chief complaint. Current Outpatient Medications Medication Sig tiZANidine HCl 4 mg capsule Take 4 mg by mouth twice daily as needed. buPROPion HCL 200 mg 12 hr tablet Take 200 mg by mouth twice daily. ALPRAZolam (XANAX) 0.5 mg tablet Take 0.5 mg by mouth three times daily as needed. omeprazole (PRILOSEC) 20 mg capsule 40 mg once daily. atorvastatin (LIPITOR) 40 mg tablet Take 1 tablet by mouth daily at bedtime. clopidogrel (PLAVIX) 75 mg tablet TAKE 1 TABLET BY MOUTH ONCE DAILY FOR 14 DAYS aspirin, enteric coated (ASPIRIN, ENTERIC COATED) 81 mg EC tablet Take 81 mg by mouth once daily. cholecalciferol (VITAMIN D) 1,000 unit tab tablet Take 1 capsule by mouth once daily. pregabalin (LYRICA) 100 mg capsule Take 100 mg by mouth twice daily. lisinopril (ZESTRIL, PRINIVIL) 5 mg tablet Take 1 tablet by mouth once daily. ezetimibe (ZETIA) 10 mg tablet Take 1 tablet by mouth once daily. No current facility-administered medications for this visit. REVIEW OF SYSTEMS: GENERAL: weight loss (-), malaise(+), fevers (-) HEENT: thrush(-), epistaxis(-) NECK: Negative for neck swelling. RESPIRATORY: Negative for cough, wheezing or shortness of breath (-). CARDIOVASCULAR: chest pain(-), leg swelling(-) or palpitations(-) GI: abdominal discomfort(-), blood in stools/melena/change in bowel habits(-). MUSCULOSKELETAL: joint pain(+), swelling(-), back pain(+) , muscle pain(-). SKIN: (-) for lesions, rash, and itching. PSYCH: sleep disturbance(-), mood disorder(-), recent psychosocial stressors(-). HEMATOLOGY/LYMPHOLOGY: Negative for prolonged bleeding, easy bruising, or swollen nodes (-) NEURO: headaches(-), syncope(-), paralysis(-), seizures(-), tremors (-) All other reviewed and negative other than HPI. Scribe attestation: Mikey Marin MD (August 10, 2021 1:59 PM) attest that this documentation has been prepared under the direction and in the presence of Mikey Palomo MD Electronically Signed: Mikey Palomo MD August 10, 2021 1:59 PM Physician attestation: Mikey Marin MD, personally performed the services described in this documentation. All medical record entries made by the scribe were at my direction and in my presence. Furthermore, I personally performed the physical exam and documented it as such, and agree that the record reflects my personal performance. Electronically Signed: Mikey Palomo MD August 10, 2021 1:59 PM OBJECTIVE: BP 155/82 Wt 74.4 kg (164 lb) BMI 30.00 kg/m PHYSICAL EXAMINATION: GENERAL: Well appearing, in no acute distress PSYCH: Mood and affect is appropriate. Awake, alert, and oriented x 3 SKIN: Skin color, texture, turgor normal, no rashes or lesions HEENT: Normocephalic, atraumatic. PERRLA. RESP: Respirations are unlabored CARD: Regular rate. Cap refill <2s. Extremities pink and well perfused at nailbed GI: Abdomen soft and non-tender MSK: Bilateral upper and lower extremity strength is normal and symmetric. No atrophy or tone abnormalities are noted Cervical: (+)pain to palpation over the cervical paraspinal muscles. Spurling is (-). (-)pain with neck flexion, extension or rotation. Rotation is full on right and left. Axial Loading Test negative, Luciano's sign negative. No obvious deformity or signs of trauma. Normal cervical lordotic curve and full flexion and extension of cervical spine. Lumbar: Straight leg raising in the sitting position is (-) for radicular pain. (+)pain to palpation lumbar paraspinal muscles. Facet loading is (+) bilaterally. (-) pain to palpation over the PSIS, sacroiliac joint provocative maneuvers are (-) for pain reproduction bilaterally. Extremities: Peripheral joint ROM is full and pain free without obvious instability or laxity in all four extremities. No deformities, edema, or skin discoloration. Good capillary refill. Gait: Gait is antalgic NEURO: Bilateral upper and lower extremity coordination are intact. Muscle stretch reflexes are physiologic and symmetric. Plantar response are downgoing. No loss of sensation is noted. ASSESSMENT AND MEDICAL DECISION MAKING: This is a 50 year old female with diffuse pain in the context of diffuse arterial disease fibromyalgia? Dx: Atherosclerosis Bilateral carotid artery stenosis Hiatal hernia Renal artery stenosis (hcc) Rajesh (generalized anxiety disorder) Cad, multiple vessel Neuralgia and neuritis (primary encounter diagnosis) Encounter for screening for osteoporosis Asymptomatic postmenopausal status Premature menopause PLAN: DXA-AXIAL SKELETON pregabalin (LYRICA) 150 mg capsule Sig: Take 1 tab PO TID Dispense: 90 capsule Refill: 2 Track physical activity consider [facility] chronic pain recovery program Return to clinic (in-person office visit or virtual visit/telemedicine) after all above completed fully. I spent a total of 60minutes on the date of the service which included: *preparing to see the patient *[id number] patient care *completing clinical documentation *obtaining and/or reviewing separately obtained history *performing a medically appropriate examination *counseling and educating the patient/family/caregiver *ordering medications, tests, or procedures *communicating with other HCPs (not separately reported) *independently interpreting results (not separately reported) *communicating results to the patient/family/caregiver *care coordination (not separately reported). Of this, greater than 50% of this was spent in the presence of the patient for purposes of education and counseling regarding the diagnosis and treatment of pain. Patient is aware that any diagnostic testing is best discussed in person to fully explain the significance and resulting treatment plan. Patient is aware that they will need a follow up office visit/virtual visit for proper care. I answered the patient's questions regarding this. I discussed healthy habits, lifestyle changes and physical activity as well as disease prevention/maintenance, including where applicable the impact of tobacco/illicit drugs on pain and its treatment. It will be communicated with the referring or consulting physician above via electronic record, fax, or mail. Patient agrees with above. Mikey Palomo MD August 10, 2021 [facility] History of Present illness Narrative* Regla Berrios, RT(R) - 05/02/2021 8:00 AM EST RADIOLOGY SERVICE PROGRESS NOTE SERVICE DATE: 05/02/2021 SERVICE TIME: 7:52 AM PATIENT IDENTITY VERIFICATION COMPLETED USING TWO (2) STANDARD IDENTIFIERS: Name and Date of confirmed by patient verbally FALL SCREENING: Has the patient had 2 falls in the last year or 1 fall with injury or currently using an Ambulatory Assistive Device (Walker, Cane, Wheelchair, Crutches, etc.)? No PATIENT GENDER DATA: .female : No ALLERGIES: Reviewed and unchanged MEDICATIONS REVIEWED: No PATIENT RELEVANT IMPLANT DATA REVIEWED: Not Applicable CREATININE: Creatinine Date Value Ref Range Status 04/07/2021 1.03 (H) 0.58 - 0.96 mg/dL Final 03/16/2021 0.99 (H) 0.58 - 0.96 mg/dL Final 03/16/2021 1.01 (H) 0.58 - 0.96 mg/dL Final eGFR-All Other Races Date Value Ref Range Status 04/07/2021 57 . Final Comment: eGFR (Estimated GFR) Units of measure: mL/min/1.73 meters squared eGFR is derived from the reexpressed MDRD Study equation using the following parameters: serum creatinine, age, gender and race. The creatinine assay has been calibrated to be traceable to IDMS. An eGFR <60 mL/min/1.73m2 for >3 months is consistent with chronic kidney disease. Refer to KDOQI guidelines for clinical interpretation. In patients with unstable renal function, e.g. those with acute kidney injury, the eGFR may not accurately reflect actual GFR. Note: On 07/02/2021, the eGFR calculation will be updated to the NKF-ASN Task Force recommended 2020 CKD-EPI creatinine equation which does not include a race variable. For more information or to access a 2020 CKD-EPI calculator, visit the National [employer] website at kidney.org/professionals/kdoqi/gfr_calculator. eGFR- Date Value Ref Range Status 04/07/2021 >60 Final P.O.C.T. RESULTS: N/A May 02, [address] PERFORMED: No IV SITE: Ambulatory: AR only - direct IV injection in the Right hand POST EXAM PIV STATUS: Not applicable PROCEDURE TYPE: AR INJECT: PET/CT WHOLE BODY SCAN. 9.9 mCi F18 FDG. No other medications given.. ADMINISTRATION TIME: 0749 PATIENT DISCHARGED TO: Ambulatory patient, left [place] department area. A Diagnostic radioactive procedure has taken place, with no further precautions necessary other than routine body substance precautions. More information regarding radiation safety can be found usingthis link: [email or web address] SIGNATURE: RT Dereck(Wilfredo) PATIENT NAME: Regla Prajapati DATE: May 02, 2021 TIME: 7:52 AM PAGER/CONTACT #: [facility] History of Present illness Narrative* Irene Kimbrough CT - 04/28/2021 1:00 PM EST Radiology Service Progress Note DATE OF SERVICE: April 28, 2021 TIME: 12:58 PM PATIENT IDENTITY VERIFICATION COMPLETED USING TWO (2) STANDARD IDENTIFIERS: Name and Date of confirmed by patient verbally. FALL SCREENING: Has the patient had 2 falls in the last year or 1 fall with injury or currently using an Ambulatory Assistive Device (Walker, Cane, Wheelchair, Crutches, etc.)? No PATIENT GENDER DATA: Female. status: : No status: NO. PATIENT RELEVANT IMPLANT DATA REVIEWED: Not Applicable ALLERGIES: Reviewed and unchanged CONTRAST ALLERGY: NO. EXAM: CT -CONTRAST INDUCED NEPHROPATHY RISK FACTORS: Not applicable CREATININE: Creatinine Date Value Ref Range Status 04/07/2021 1.03 (H) 0.58 - 0.96 mg/dL Final 03/16/2021 0.99 (H) 0.58 - 0.96 mg/dL Final 03/16/2021 1.01 (H) 0.58 - 0.96 mg/dL Final eGFR-All Other Races Date Value Ref Range Status 04/07/2021 57 . Final Comment: eGFR (Estimated GFR) Units of measure: mL/min/1.73 meters squared eGFR is derived from the reexpressed MDRD Study equation using the following parameters: serum creatinine, age, gender and race. The creatinine assay has been calibrated to be traceable to IDMS. An eGFR <60 mL/min/1.73m2 for >3 months is consistent with chronic kidney disease. Refer to KDOQI guidelines for clinical interpretation. In patients with unstable renal function, e.g. those with acute kidney injury, the eGFR may not accurately reflect actual GFR. Note: On 07/02/2021, the eGFR calculation will be updated to the NKF-ASN Task Force recommended 2020 CKD-EPI creatinine equation which does not include a race variable. For more information or to access a 2020 CKD-EPI calculator, visit the National Kidney Foundation website at kidney.org/professionals/kdoqi/gfr_calculator. eGFR- Date Value Ref Range Status 04/07/2021 >60 Final P.O.C.T. RESULTS: N/A April 28, 2021 TREATMENT: N/A PERIPHERAL IV DATA: Ambulatory: A peripheral IV was started in the Left forearm with a Angio cath: 20 gauge. RADIOLOGY DEPARTMENT: CT; Exam(s) Completed: CTA Abdomen Pelvis SIGNATURE: CHRISTINE Chinchilla PATIENT NAME: Regla Prajapati DATE: April 28, 2021 TIME: 12:58 PM [facility] History of Past illness Narrative* Problem Noted Date Resolved Date Hyperventilation 01/27/2020 04/14/2021 TIA (transient ischemic attack) 01/26/2020 01/27/2020 documented as of this encounter (statuses as of 08/11/2021) [facility] Narrative* Problem Noted Date Resolved Date Hyperventilation 01/27/2020 04/14/2021 TIA (transient ischemic attack) 01/26/2020 01/27/2020 documented as of this encounter (statuses as of 08/13/2021) [facility] Narrative* Problem Noted Date Resolved Date Hyperventilation 01/27/2020 04/14/2021 TIA (transient ischemic attack) 01/26/2020 01/27/2020 documented as of this encounter (statuses as of 09/09/2021) [facility] Narrative* Problem Noted Date Resolved Date Hyperventilation 01/27/2020 04/14/2021 TIA (transient ischemic attack) 01/26/2020 01/27/2020 documented as of this encounter (statuses as of 09/20/2021) [facility] Narrative* Problem Noted Date Resolved Date Hyperventilation 01/27/2020 04/14/2021 TIA (transient ischemic attack) 01/26/2020 01/27/2020 documented as of this encounter (statuses as of 10/19/2021) [facility] Narrative* Problem Noted Date Resolved Date Hyperventilation 01/27/2020 04/14/2021 TIA (transient ischemic attack) 01/26/2020 01/27/2020 documented as of this encounter (statuses as of 10/27/2021) [address]22-2020 History of Past illness Narrative* Problem Noted Date Resolved Date Hyperventilation 01/27/2020 04/14/2021 TIA (transient ischemic attack) 01/26/2020 01/27/2020 documented as of this encounter (statuses as of 10/28/2021) [address]-2020 History of Past illness Narrative* Problem Noted Date Resolved Date Hyperventilation 01/27/2020 04/14/2021 TIA (transient ischemic attack) 01/26/2020 01/27/2020 documented as of this encounter (statuses as of 12/28/2021) [facility] Narrative* Problem Noted Date Resolved Date Hyperventilation 01/27/2020 04/14/2021 TIA (transient ischemic attack) 01/26/2020 01/27/2020 documented as of this encounter (statuses as of 01/05/2022) [facility] Narrative* Problem Noted Date Resolved Date Hyperventilation 01/27/2020 04/14/2021 TIA (transient ischemic attack) 01/26/2020 01/27/2020 documented as of this encounter (statuses as of 03/22/2022) [address]-2020 History of Past illness Narrative* Problem Noted Date Resolved Date Hyperventilation 01/27/2020 04/14/2021 TIA (transient ischemic attack) 01/26/2020 01/27/2020 documented as of this encounter (statuses as of 03/23/2022) [facility]* Problem Noted Date Resolved Date Hyperventilation 01/27/2020 04/14/2021 TIA (transient ischemic attack) 01/26/2020 01/27/2020 documented as of this encounter (statuses as of 03/23/2022) [facility]* Problem Noted Date Resolved Date Hyperventilation 01/27/2020 04/14/2021 TIA (transient ischemic attack) 01/26/2020 01/27/2020 documented as of this encounter (statuses as of 03/23/2022) [address]-2020 History of Past illness Narrative* Problem Noted Date Resolved Date Hyperventilation 01/27/2020 04/14/2021 TIA (transient ischemic attack) 01/26/2020 01/27/2020 documented as of this encounter (statuses as of 03/27/2022) [address]-2020 History of Past illness Narrative* Problem Noted Date Resolved Date Hyperventilation 01/27/2020 04/14/2021 TIA (transient ischemic attack) 01/26/2020 01/27/2020 documented as of this encounter (statuses as of 05/11/2022) [facility]* Problem Noted Date Resolved Date Hyperventilation 01/27/2020 04/14/2021 TIA (transient ischemic attack) 01/26/2020 01/27/2020 documented as of this encounter (statuses as of 05/13/2022) [facility]* Problem Noted Date Resolved Date Hyperventilation 01/27/2020 04/14/2021 TIA (transient ischemic attack) 01/26/2020 01/27/2020 documented as of this encounter (statuses as of 05/15/2022) [facility]* Problem Noted Date Resolved Date Hyperventilation 01/27/2020 04/14/2021 TIA (transient ischemic attack) 01/26/2020 01/27/2020 documented as of this encounter (statuses as of 05/30/2022) [address]-2020 History of Past illness Narrative* Problem Noted Date Resolved Date Hyperventilation 01/27/2020 04/14/2021 TIA (transient ischemic attack) 01/26/2020 01/27/2020 documented as of this encounter (statuses as of 06/14/2022) [facility]* Problem Noted Date Resolved Date Hyperventilation 01/27/2020 04/14/2021 TIA (transient ischemic attack) 01/26/2020 01/27/2020 documented as of this encounter (statuses as of 06/22/2022) [facility]* Problem Noted Date Resolved Date Hyperventilation 01/27/2020 04/14/2021 TIA (transient ischemic attack) 01/26/2020 01/27/2020 documented as of this encounter (statuses as of 06/22/2022) [address]-2020 History of Past illness Narrative* Problem Noted Date Resolved Date Hyperventilation 01/27/2020 04/14/2021 TIA (transient ischemic attack) 01/26/2020 01/27/2020 documented as of this encounter (statuses as of 06/26/2022) [address]22-2020 History of Past illness Narrative* Problem Noted Date Resolved Date Hyperventilation 01/27/2020 04/14/2021 TIA (transient ischemic attack) 01/26/2020 01/27/2020 documented as of this encounter (statuses as of 06/27/2022) [address]-2020 History of Past illness Narrative* Problem Noted Date Resolved Date Hyperventilation 01/27/2020 04/14/2021 TIA (transient ischemic attack) 01/26/2020 01/27/2020 documented as of this encounter (statuses as of 06/29/2022) [address]-2020 History of Past illness Narrative* Problem Noted Date Resolved Date Hyperventilation 01/27/2020 04/14/2021 TIA (transient ischemic attack) 01/26/2020 01/27/2020 documented as of this encounter (statuses as of 07/04/2022) [address]-2020 History of Past illness Narrative* Problem Noted Date Resolved Date Hyperventilation 01/27/2020 04/14/2021 TIA (transient ischemic attack) 01/26/2020 01/27/2020 documented as of this encounter (statuses as of 07/04/2022) [address]-2020 History of Past illness Narrative* Problem Noted Date Resolved Date Hyperventilation 01/27/2020 04/14/2021 TIA (transient ischemic attack) 01/26/2020 01/27/2020 documented as of this encounter (statuses as of 07/12/2022) [address]-2020 History of Past illness Narrative* Problem Noted Date Resolved Date Hyperventilation 01/27/2020 04/14/2021 TIA (transient ischemic attack) 01/26/2020 01/27/2020 documented as of this encounter (statuses as of 07/12/2022) [address]-2020 History of Past illness Narrative* Problem Noted Date Resolved Date Hyperventilation 01/27/2020 04/14/2021 TIA (transient ischemic attack) 01/26/2020 01/27/2020 documented as of this encounter (statuses as of 07/13/2022) [address]-2020 History of Past illness Narrative* Problem Noted Date Resolved Date Hyperventilation 01/27/2020 04/14/2021 TIA (transient ischemic attack) 01/26/2020 01/27/2020 documented as of this encounter (statuses as of 07/19/2022) [facility]* Problem Noted Date Resolved Date Hyperventilation 01/27/2020 04/14/2021 TIA (transient ischemic attack) 01/26/2020 01/27/2020 documented as of this encounter (statuses as of 07/20/2022) [facility]* Problem Noted Date Resolved Date Hyperventilation 01/27/2020 04/14/2021 TIA (transient ischemic attack) 01/26/2020 01/27/2020 documented as of this encounter (statuses as of 07/25/2022) [facility]* Problem Noted Date Resolved Date Hyperventilation 01/27/2020 04/14/2021 TIA (transient ischemic attack) 01/26/2020 01/27/2020 documented as of this encounter (statuses as of 07/26/2022) [facility]* Problem Noted Date Resolved Date Hyperventilation 01/27/2020 04/14/2021 TIA (transient ischemic attack) 01/26/2020 01/27/2020 documented as of this encounter (statuses as of 07/27/2022) [facility]* Problem Noted Date Resolved Date Hyperventilation 01/27/2020 04/14/2021 TIA (transient ischemic attack) 01/26/2020 01/27/2020 documented as of this encounter (statuses as of 08/08/2022) [facility]* Problem Noted Date Resolved Date Hyperventilation 01/27/2020 04/14/2021 TIA (transient ischemic attack) 01/26/2020 01/27/2020 documented as of this encounter (statuses as of 09/02/2022) [address]-2020 History of Past illness Narrative* Problem Noted Date Diagnosed Date Resolved Date Hyperventilation 01/27/2020 04/14/2021 TIA (transient ischemic attack) 01/26/2020 01/27/2020 documented as of this encounter (statuses as of 12/15/2022) [address]-2020 History of Past illness Narrative* Problem Noted Date Diagnosed Date Resolved Date Hyperventilation 01/27/2020 04/14/2021 TIA (transient ischemic attack) 01/26/2020 01/27/2020 documented as of this encounter (statuses as of 12/15/2022) [facility]* Problem Noted Date Diagnosed Date Resolved Date Hyperventilation 01/27/2020 04/14/2021 TIA (transient ischemic attack) 01/26/2020 01/27/2020 documented as of this encounter (statuses as of 12/15/2022) [facility] Narrative* Irene Kimbrough (Ct), CT - 01/07/2020 2:00 PM EDT Radiology Service Progress Note DATE OF SERVICE: January 07, 2020 TIME: 1:47 PM PATIENT IDENTITY VERIFICATION COMPLETED USING TWO (2) STANDARD IDENTIFIERS: Name and Date of confirmed by patient verbally. FALL SCREENING: Has the patient had 2 falls in the last year or 1 fall with injury or currently using an Ambulatory Assistive Device (Walker, Cane, Wheelchair, Crutches, etc.)? No PATIENT GENDER DATA: Female. status: : No status: NO. PATIENT RELEVANT IMPLANT DATA REVIEWED: Not Applicable ALLERGIES: Reviewed and unchanged CONTRAST ALLERGY: NO. EXAM: CT -CONTRAST INDUCED NEPHROPATHY RISK FACTORS: Not applicable CREATININE: Creatinine Date Value Ref Range Status 11/27/2019 0.78 0.58 - 0.96 mg/dL Final 10/30/2019 0.90 0.58 - 0.96 mg/dL Final 03/28/2019 0.74 0.58 - 0.96 mg/dL Final eGFR-All Other Races Date Value Ref Range Status 11/27/2019 >60 . Final Comment: eGFR (Estimated GFR) Units of measure: mL/min/1.73 meters squared eGFR is derived from the reexpressed MDRD Study equation using the following parameters: serum creatinine, age, gender and race. The creatinine assay has been calibrated to be traceable to IDMS. An eGFR <60 mL/min/1.73m2 for >3 months is consistent with chronic kidney disease. Refer to KDOQI guidelines for clinical interpretation. In patients with unstable renal function, e.g. those with acute kidney injury, the eGFR may not accurately reflect actual GFR. eGFR- Date Value Ref Range Status 11/27/2019 >60 Final P.O.C.T. RESULTS: N/A January 07, 2020 TREATMENT: N/A PERIPHERAL IV DATA: Ambulatory: A peripheral IV was started in the Left forearm with a Angio cath: 20 gauge. RADIOLOGY DEPARTMENT: CT; Exam(s) Completed: CTA Brain and CTA Neck SIGNATURE: CHRISTINE Chinchilla PATIENT NAME: Regla Prajapati DATE: January 07, 2020 TIME: 1:47 PM [facility] Diagnosis Neuralgia and neuritis- Primary Neuralgia, neuritis, and radiculitis, unspecified Atherosclerosis Generalized and unspecified atherosclerosis Bilateral carotid artery stenosis Occlusion and stenosis of carotid artery without mention of cerebral infarction Hiatal hernia Diaphragmatic hernia without mention of obstruction or gangrene Renal artery stenosis (HCC) Atherosclerosis of renal artery RAJESH (generalized anxiety disorder) Generalized anxiety disorder CAD, multiple vessel Coronary atherosclerosis of unspecified type of vessel, [place] or graft Encounter for screening for osteoporosis Special screening for osteoporosis Asymptomatic postmenopausal status Premature menopause documented in [facility] encounter [facility]* Diagnosis Atherosclerosis Generalized and unspecified atherosclerosis Bilateral carotid artery stenosis Occlusion and stenosis of carotid artery without mention of cerebral infarction Hiatal hernia Diaphragmatic hernia without mention of obstruction or gangrene Renal artery stenosis (HCC) Atherosclerosis of renal artery RAJESH (generalized anxiety disorder) Generalized anxiety disorder CAD, multiple vessel Coronary atherosclerosis of unspecified type of vessel, [place] or graft Neuralgia and neuritis Neuralgia, neuritis, and radiculitis, unspecified documented [facility]* Diagnosis Essential hypertension- Primary Unspecified essential hypertension Dizziness Dizziness and giddiness Dyspnea on exertion Other dyspnea and respiratory abnormality PVD (peripheral vascular disease) (HCC) Peripheral vascular disease, unspecified [facility] Diagnosis Renal artery stenosis (HCC)- Primary Atherosclerosis of renal artery Essential hypertension Unspecified essential hypertension documented [facility]* Diagnosis Neuralgia and neuritis- Primary Neuralgia, neuritis, and radiculitis, unspecified CAD, multiple vessel Coronary atherosclerosis of unspecified type of vessel, [place] or graft RAJESH (generalized anxiety disorder) Generalized anxiety disorder documented in this [facility]* Diagnosis Nausea and vomiting, unspecified vomiting type- Primary Bloating Flatulence, eructation, and gas pain Other constipation documented in this encounter [facility]* Diagnosis Bilateral carotid artery stenosis Occlusion and stenosis of carotid artery without mention of cerebral infarction PVD (peripheral vascular disease) (HCC) Peripheral vascular disease, unspecified Renal artery stenosis (HCC) Atherosclerosis of renal artery Atherosclerosis Generalized and unspecified atherosclerosis documented [facility]* Diagnosis Abdominal aortic aneurysm (AAA) without rupture, unspecified part- Primary NANCY (renal artery stenosis) (HCC) Atherosclerosis of renal artery Carotid stenosis, asymptomatic, bilateral documented in this encounter [facility]* Diagnosis Peripheral arterial disease (HCC)- Primary Peripheral vascular disease, unspecified documented in this [facility]* Diagnosis Renal artery stenosis (HCC)- Primary Atherosclerosis of renal artery Essential hypertension Unspecified essential hypertension Kidney cyst, acquired Acquired cyst of kidney documented in this encounter [facility]* Diagnosis Screening for genitourinary condition Screening for other and unspecified genitourinary condition documented in this encounter [facility]* Diagnosis Essential hypertension- Primary Unspecified essential hypertension documented in this encounter [facility]* Diagnosis Essential hypertension- Primary Unspecified essential hypertension [facility] [facility] Diagnosis Essential hypertension- Primary Unspecified essential hypertension Hypotension, unspecified hypotension type documented in this encounter [facility]* Diagnosis Essential hypertension- Primary Unspecified essential hypertension Renal artery stenosis (HCC) Atherosclerosis of renal artery Tachycardia Tachycardia, unspecified documented in this encounter [facility] note* Diagnosis Hypotension, unspecified hypotension type- Primary documented in this encounter [facility] note* Diagnosis Screening for genitourinary condition Screening for other and unspecified genitourinary condition documented in this encounter [facility] noteNo assessment information availableTri[facility] Work Phone: Evaluation note* Diagnosis Abnormal EKG- Primary Nonspecific abnormal electrocardiogram (ECG) (EKG) documented in this encounter [facility] note* Diagnosis Hypotension, unspecified hypotension type- Primary documented in this encounter [facility] note* Diagnosis Essential hypertension- Primary Unspecified essential hypertension documented in this encounter [facility] note* Diagnosis Essential hypertension- Primary Unspecified essential hypertension [facility] Diagnosis Tinnitus, bilateral- Primary Unspecified tinnitus Other specified hearing loss, unspecified ear Asymmetrical sensorineural hearing loss Sensorineural hearing loss, asymmetrical Dizziness Dizziness and giddiness documented [facility] Diagnosis Asymmetrical sensorineural hearing loss- Primary Sensorineural hearing loss, asymmetrical Dizziness Dizziness and giddiness Lightheadedness Dizziness and giddiness Tinnitus, bilateral Unspecified tinnitus Arachnoid cyst Cerebral cysts documented in this [facility]* Diagnosis Dizziness- Primary Dizziness and giddiness Lightheadedness Dizziness and giddiness documented in this [facility]* Diagnosis Dizziness- Primary Dizziness and giddiness Lightheadedness Dizziness and giddiness documented in this [facility]* Diagnosis Lightheadedness- Primary Dizziness and giddiness documented in this encounter [facility]* Diagnosis Dizziness- Primary Dizziness and giddiness Cervicalgia Balance problem Other symptoms involving nervous and musculoskeletal systems documented in this encounter [facility]* Diagnosis Dizziness- Primary Dizziness and giddiness Arachnoid cyst Cerebral cysts documented in this [facility]* Diagnosis Arteritis, Takayasu (HCC) Takayasu's disease Arterial disease ([facility]) Unspecified disorders of arteries and arterioles Bilateral carotid artery stenosis Occlusion and stenosis of carotid artery without mention of cerebral infarction Subclavian arterial stenosis ([facility]) Stricture of artery documented in this encounter [facility]* Diagnosis Nonruptured cerebral aneurysm Cerebral aneurysm, nonruptured Dizziness and giddiness Encounter for screening for cardiovascular disorders Screening for other and unspecified cardiovascular conditions documented in this encounter [facility]* Diagnosis Generalized anxiety disorder with panic attacks ([facility])- Primary Encounter for screening mammogram for malignant neoplasm of breast Hyperlipemia, mixed ([facility]) Mixed hyperlipidemia Vitamin D insufficiency Hypothyroidism, adult ([facility]) Other specified acquired hypothyroidism Gastroesophageal reflux disease with esophagitis, unspecified whether hemorrhage Hypertension, essential ([facility]/HCC) Unspecified essential hypertension PVD (peripheral vascular disease) ([facility]) Unspecified peripheral vascular disease BMI 27.0-27.9,adult documented [facility]* Diagnosis Peripheral vascular disease, unspecified ([facility])- Primary Peripheral vascular disease, unspecified documented in this encounter [facility] Work Phone: History general Narrative - Reported* Type Description Date Medical History PVD Medical History CAROTID STENOSIS Medical History ANXIETY Medical History HYPERCHOLESTEREMIA Surgical History HYSTERECTOMY Surgical History LAPROSCOPY Surgical History ANGIO & CAROTID DSA 02-28-2019 Surgical History RIGHT ILIAC & CAROTID ANGIOPLAS TY & STENTING 03-04-2019 AVIA Other Reason for referral (narrative)* Outpatient Procedure (Routine) - Closed Specialty Diagnoses / Procedures Referred By Contac t Referred To Contact [facility] [place] Diagnoses Essential hypertension Dizziness Dyspnea on exertion PVD (peripheral vascular disease) (HCC) Procedures ECG COMPLETE ECG ROUTINE ECG W/LEAST 12 LDS W/I&[place] [address] [place] [address] [facility] [address] [address] Referral ID Status Reason Start Date Expiration Date V isits Requested Visits Authorized [id number] Closed Auto-Generate d Referral 09/09/2021 09/09/2022 1 1 [facility] for referral (narrative)* Outpatient Procedure (Routine) - Pending Review Specialty Diagnoses / Procedures Referred By Contac t Referred To Contact [facility] [place] Diagnoses PVD (peripheral vascular disease) (HCC) Renal artery stenosis (HCC) Atherosclerosis Procedures US ABD AORTA COMPLETE VAS LAB DUP-SCAN AORTA IVC ILIAC VASCL/[place] [address] [place] [address] [facility] [address] [address] Referral ID Status Reason Start Date Expiration Date Visits Requested Visits Authorized [id number] Pending Review Auto-Generat ed Referral 2 03/22/2023 1 1 * Outpatient Procedure (Routine) - Pending Review Specialty Diagnoses / Procedures Referred By Contac t Referred To Contact [facility] [place] Diagnoses Renal artery stenosis (HCC) Procedures US RENAL ARTERY [place] VAS LAB DUP-SCAN ARTL [place] ABDL/PEL/SCROT&/[place] [address] [place] [address] [facility] [address] [address] Referral ID Status Reason Start Date Expiration Date Visits Requested Visits Authorized [id number] Pending Review Auto-Generat ed Referral 2 03/22/2023 1 1 * Outpatient Procedure (Routine) - Pending Review Specialty Diagnoses / Procedures Referred By Contac t Referred To Contact [facility] [place] Diagnoses Bilateral carotid artery stenosis Procedures US CAROTID ARTERIES [place] VAS LAB DUPLEX SCAN EXTRACRANIAL [place] [address] [place] [address] [facility] [address] [address] Referral ID Status Reason Start Date Expiration Date Visits Requested Visits Authorized [id number] Pending Review Auto-Generat ed Referral 2 03/22/2023 1 1 [facility] for referral (narrative)* Outpatient Procedure (Routine) - Open Specialty Diagnoses / Procedures Referred By Contac t Referred To Contact [facility] [place] Diagnoses Abdominal aortic aneurysm (AAA) without rupture, unspecified part NANCY (renal artery stenosis) (HCC) Carotid stenosis, asymptomatic, bilateral Procedures US ABD AORTA COMPLETE VAS LAB DUP-SCAN AORTA IVC ILIAC VASCL/[place] [address] [place] [address] [facility] [address] [address] Referral ID Status Reason Start Date Expiration Date V isits Requested Visits Authorized [id number] Open Auto-Generate d Referral 03/23/2022 03/23/2023 1 1 * Outpatient Procedure (Routine) - Open Specialty Diagnoses / Procedures Referred By Contac t Referred To Contact [facility] [place] Diagnoses Carotid stenosis, asymptomatic, bilateral Procedures US CAROTID ARTERIES [place] VAS LAB DUPLEX SCAN EXTRACRANIAL [place] [address] [place] [address] [address] Referral ID Status Reason Start Date Expiration Date V isits Requested Visits Authorized [id number] Open Auto-Generate d Referral 03/23/2022 03/23/2023 1 1 * Outpatient Procedure (Routine) - Open Specialty Diagnoses / Procedures [facility] To Contact [facility] Diagnoses NANCY (renal artery stenosis) (HCC) Procedures US RENAL ARTERY [place] VAS LAB DUP-SCAN ARTL [place] ABDL/PEL/SCROT&/[place] [address] [place] [address] [address] Referral ID Status Reason Start Date Expiration Date V isits Requested Visits Authorized [id number] Open Auto-Generate d Referral 03/23/2022 03/23/2023 1 1 [facility] for referral (narrative)* Outpatient Procedure (Routine) - Open Specialty Diagnoses / Procedures [facility] Referred To Contact [facility] Diagnoses Peripheral arterial disease (HCC) Procedures PVR LEG R[place]ETTA VAS LAB NON-INVASIVE PHYSIOLOGIC STUDY EXTREMITY 3 [place] [address] [place] [address] [address] Referral ID Status Reason Start Date Expiration Date V isits Requested Visits Authorized [id number] Open Auto-Generate d Referral 03/23/2022 03/23/2023 1 1 [facility] for referral (narrative)* Diagnostic Procedure Only (Routine) - Authorized Specialty Diagnoses / Procedures Referred By Cristobal kaye Referred To Contact US IMAGING Diagnoses Kidney cyst, acquired Procedures US KIDNEY/BLADDER US RETROPERITONEAL REAL TIME W/IMAGE COMPLETE Ting Camilo MD [address] [place] [address] Us Imaging Referral ID Status Reason Start Date Expiration Date Visits Requested Visits Authorized [id number] Authorized Auto-Generat ed Referral 09/04/2022 04/22/2023 1 1 [facility] for referral (narrative)* Outpatient Procedure (Routine) - Closed Specialty Diagnoses / Procedures Referred By Cristobal kaye Referred To Contact [facility] [place] Diagnoses Tachycardia Procedures ECG COMPLETE ECG ROUTINE ECG W/LEAST 12 LDS W/I&R Ting Camilo MD [address] [place] [address] [place] [address] Referral ID Status Reason Start Date Expiration Date V isits Requested Visits Authorized [id number] Closed Auto-Generate d Referral 06/22/2022 05/06/2023 1 1 [facility] for referral (narrative)* Outpatient Procedure (Routine) - Pending Review Specialty Diagnoses / Procedures Referred By Cristobal kaye Referred To Contact [facility] Diagnoses Abnormal EKG Procedures ECHO ECHO TTHRC R-T 2D W/WOM-MODE COMPL SPEC&COLR D Ting Camilo MD [address] [place] [address] [place] [address] Referral ID Status Reason Start Date Expiration Date Visits Requested Visits Authorized [id number] Pending Review Auto-Generat ed Referral 06/27/2022 06/27/2023 1 1 [facility] for referral (narrative)* Diagnostic Procedure Only (Urgent) - Closed Specialty Diagnoses / Procedures Referred By Contac t Referred To Contact MOLECULAR & FUNCTIONAL IMAGING Diagnoses Arteritis, Takayasu (HCC) Arterial disease (HCC) Bilateral carotid artery stenosis Subclavian arterial stenosis (HCC) Procedures NM PET/CT WHOLE BODY INITIAL TUMOR IMAG PET W/CONCURNT CT-WHOLE BODY Tiara Lynne MD [address] [place] [address] [facility] [address] [place] [address] Referral ID Status Reason Start Date Expiration Date V isits Requested Visits Authorized [id number] Closed Auto-Generate d Referral 04/22/2021 05/06/2021 2 2 [facility] for referral (narrative)* Diagnostic Procedure Only (Routine) - Closed Specialty Diagnoses / Procedures [facility] Referred To Contact CT IMAGING Diagnoses Encounter for screening for cardiovascular disorders Procedures CTA NECK W IVCON CTA NECK, W/WO C, W/3D Elliott Salazar MD [address] [place] [address] Ct Imaging Referral ID Status Reason Start Date Expiration Date V isits Requested Visits Authorized [id number] Closed Auto-Generate d Referral 01/06/2020 02/04/2020 1 1 * Diagnostic Procedure Only (Routine) - Closed Specialty Diagnoses / Procedures [facility] Referred To Contact CT IMAGING Diagnoses Nonruptured cerebral aneurysm Dizziness and giddiness Procedures CTA HEAD W IVCON CTA HEAD WWO C, W/3D Elliott Salazar MD [address] [place] [address] Ct Imaging Referral ID Status Reason Start Date Expiration Date V isits Requested Visits Authorized [id number] Closed Auto-Generate d Referral 12/18/2019 01/16/2020 1 1 [facility] for referral (narrative)* Consultation (Routine) - Pending Review Specialty Diagnoses / Procedures Referred By Contac t Referred To Contact Behavioral Health Diagnoses Generalized anxiety disorder with panic attacks (CMS/HCC) Procedures CA OFFICE/OUTPATIENT NEW HIGH MDM 60 MINUTES Renetta Ridley, IBETH [address] [place] [address] Mattie Martinez, [facility] [address] [place] [address] Referral ID Status Reason Start Date Expiration Date Visits Requested Visits Authorized [id number] Pending Review Specialty Services Required 06/20/2023 12/17/2023 1 1 [facility] for referral (narrative)* Consultation (Routine) - Authorized Specialty Diagnoses / Procedures Referred By Contac t Referred To Contact Vascular Surgery Diagnoses Peripheral vascular disease, unspecified (CMS-HCC) Procedures Follow [place] [address] [place] [address] Referral ID Status Reason Start Date Expiration Date V isits Requested Visits Authorized [id number] Authorized 09/07/2023 09/06/2024 1 1 * Imaging (Routine) - Pending Review Specialty Diagnoses / Procedures Referred By Contac t Referred To Contact Cardiology Diagnoses Peripheral vascular disease, unspecified (CMS-HCC) Procedures Vascular [place] [address] [address] [place] [address] Referral ID Status Reason Start Date Expiration Date Visits Requested Visits Authorized [id number] Pending Review Perform Procedure 09/07/2023 09/06/2024 1 1 * Imaging (Routine) - Pending Review Specialty Diagnoses / Procedures Referred By Contac t Referred To Contact Cardiology Diagnoses Peripheral vascular disease, unspecified ([facility]) Procedures Vascular US Ankle Brachial Index ([place]) [place] [address] [facility] [place] [address] Referral ID Status Reason Start Date Expiration Date Visits Requested Visits Authorized [id number] Pending Review Perform Procedure 09/07/2023 09/06/2024 1 1 * Imaging (Routine) - Pending Review Specialty Diagnoses / Procedures Referred By Contac t Referred To Contact Cardiology Diagnoses Peripheral vascular disease, unspecified ([facility]) Procedures [place] [address] [facility] Department [place] [address] Referral ID Status Reason Start Date Expiration Date Visits Requested Visits Authorized [id number] Pending Review Perform Procedure 09/07/2023 09/06/2024 1 1 [facility] Work Phone: Reason for visit Narrative* Diagnostic Procedure Only (Urgent) - Closed Specialty Diagnoses / Procedures Referred By Contac t Referred To Contact MOLECULAR & FUNCTIONAL IMAGING Diagnoses Arteritis, Takayasu (HCC) Arterial disease (HCC) Bilateral carotid artery stenosis Subclavian arterial stenosis (HCC) Procedures NM PET/CT WHOLE BODY INITIAL TUMOR IMAG PET W/CONCURNT CT-WHOLE BODY Tiara Lynne MD [address] [place] [address] Molecular [facility] Functional Imaging [address] [place] [id number] Referral ID Status Reason Start Date Expiration Date V isits Requested Visits Authorized [id number] Closed Auto-Generate d Referral 04/22/2021 05/06/2021 2 2 [facility] Summary Purpose Family History No Family History Records Found Relationship Condition Age at Onset Recorded Date/T mynor Not Specified Cerebral aneurysm Unknown grandparent Malignant neoplasm of colon Unknown Malignant neoplasm of esophagus Unknown Relationship Condition Age at Onset Recorded Date/T mynor Not Specified Cerebral aneurysm Unknown grandparent Malignant neoplasm of colon Unknown Malignant neoplasm of esophagus Unknown Not Specified History of stroke Unknown Unknown Advance Directives No Advanced Directives Records FoundDocuments on File Type Date Recorded Patient Manager Of Customer Billing Expl anation Advance Directive(s) 03/03/2020 10:58 AM Advance Directive(s) 02/25/2020 6:09 PM Advance Directive(s) 01/26/2020 5:47 PM Advance Directive(s) 03/28/2019 12:27 PM Documents on File Type Date Recorded Patient Manager Of Customer Billing Expl anation Advance Directive(s) 03/03/2020 10:58 AM Advance Directive(s) 02/25/2020 6:09 PM Advance Directive(s) 01/26/2020 5:47 PM Advance Directive(s) 03/28/2019 12:27 PM Advance Directive Response Recorded Date/ Time Advance Directives No February 27, 2019 4:45pm Advance Directive Response Recorded Date/ Time Advance Directives No February 27, 2019 5:45pm Procedure Findings Note HNO ID: [id number] Author: Reagan Catherine Service: Neurosurgery Author Type: Physician Type: Brief Op Note Filed: 03/03/2020 2:06 PM Note Text: BRIEF OP/PROCEDURE NOTE NEURO INTERVENTIONAL PROCEDURE DATE: March 03, 2020 LOG ID: [id number] Surgery/Procedure Date: 03/03/2020 Incision/Procedure Start Time: 1:23 PM Incision Close/Procedure End Time: 2:09 PM Anesthesia: Procedural Sedation PRIMARY PROCEDURALIST: Blanca Catherine M.D. CLINICAL MOLECULAR GENETICIST(S): Mau Morales MD PROCEDURE: Diagnostic CervicoCerebral Angiography Indications: Great vessel stenosis Access Site: right INDUSTRIAL ORGANIZATIONAL PSYCHOLOGIST PRE-PROCEDURE DIAGNOSIS: Great vessel stenosis POST-PROCEDURE DIAGNOSIS: same FINDINGS: 1. Abberant right subclavian 2. Moderate stenosis at the origin of right and left common carotid arteries. 3. Left external carotid severe stenosis with flow delay 4. Left vertebral origin stenosis 5. 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 Hypoplastic posterior circulation related to #5. ESTIMATED BLOOD LOSS: 50 ml C (more content not included)... Reason for Referral Specialty Diagnoses / Procedures Referred By Cristobal t Referred To Contact Gastroenterology Diagnoses Nausea and vomiting, unspecified vomiting type Bloating Other constipation Procedures CONSULT TO GASTROENTEROLOGY OFFICE/OUTPATIENT [facility] 60-74 MINUTES Brad Bone Jr., MD [address] [place] [address] [place] [address] Referral ID Status Reason Start Date Expiration Date Visits Requested Visits Authorized [id number] Authorized PCP Requested Referral 01/05/2022 01/05/2023 1 1 Specialty Diagnoses / Procedures Referred By Contac t Referred To Contact Neurology Diagnoses Dizziness Lightheadedness Arachnoid cyst Procedures CONSULT TO NEUROLOGY OFFICE/OUTPATIENT [facility] 60-74 MINUTES Fabien Gonzalez PA-C [address] [place] [address] Referral ID Status Reason Start Date Expiration Date Visits Requested Visits Authorized [id number] Authorized PCP Requested Referral 07/12/2022 07/12/2023 1 1 Specialty Diagnoses / Procedures Referred By Contac t Referred To Contact [facility] Diagnoses Dizziness Lightheadedness Procedures PT REHAB FOLLOW UP ORDER THERAPEUTIC EXERCISES RE, EA 15 MIN. Pt [facility] [address] [place] [address] [facility] [address] [address] Referral ID Status Reason Start Date Expiration Date Visits Requested Visits Authorized [id number] Pending Review PCP Requested Referral Auto-Generate d Referral 07/19/2022 10/17/2022 1 1 Specialty Diagnoses / Procedures Referred By Contac t Referred To Contact CT IMAGING Diagnoses Renovascular hypertension Chronic renal failure, stage 3a (HCC) Procedures CTA ABDOMEN W IVCON CT ANGIO,ABDOMN W&WO CN Ting Camilo MD [address] [place] [address] Ct Imaging Referral ID Status Reason Start Date Expiration Date V isits Requested Visits Authorized [id number] Closed Auto-Generate d Referral 04/15/2021 05/06/2021 1 1 Chief Complaint and Reason for Visit Chief Complaint Elevated BP diarrhea vomiting Chief Complaint vomiting Additional Source Comments INFORMATION SOURCE (unrecogn ized section and content) DATE CREATED AUTHOR 03/04/2020 [facility] DATE CREATED AUTHOR AUTHOR'S ORGANIZ ATION 08/14/2021 [facility] DATE CREATED AUTHOR AUTHOR'S ORGANIZ ATION 12/28/2021 [facility] DATE CREATED AUTHOR AUTHOR'S ORGANIZ ATION 07/18/2022 [facility] DATE CREATED AUTHOR AUTHOR'S ORGANIZ ATION 09/02/2022 [facility] DATE CREATED AUTHOR AUTHOR'S ORGANIZ ATION 08/29/2023 [facility] DATE CREATED AUTHOR AUTHOR'S ORGANIZ ATION 09/08/2023 [facility] DATE CREATED AUTHOR AUTHOR'S ORGANIZ ATION 01/25/2024 [facility] EPIC Source Comments (unrecognize d section and content) In the event this informatio n is protected by the Federal Confidentiality of Alcohol and Drug Abuse Patient Records regulations: The Federal rules restrict any use of the information to criminally investigate or prosecute any alcohol or drug abuse patient.[facility] the event this information is protected by the Federal Confidentiality of Alcohol and Drug Abuse Patient Records regulations: The Federal rules restrict any use of the information to criminally investigate or prosecute any alcohol or drug abuse patient.[facility] the event this information is protected by the Federal Confidentiality of Alcohol and Drug Abuse Patient Records regulations: The Federal rules restrict any use of the information to criminally investigate or prosecute any alcohol or drug abuse patient.[facility] the event this information is protected by the Federal Confidentiality of Alcohol and Drug Abuse Patient Records regulations: The Federal rules restrict any use of the information to criminally investigate or prosecute any alcohol or drug abuse patient.[facility] the event this information is protected by the Federal Confidentiality of Alcohol and Drug Abuse Patient Records regulations: The Federal rules restrict any use of the information to criminally investigate or prosecute any alcohol or drug abuse patient.[facility] the event this information is protected by the Federal Confidentiality of Alcohol and Drug Abuse Patient Records regulations: The Federal rules restrict any use of the information to criminally investigate or prosecute any alcohol or drug abuse patient.[facility] the event this information is protected by the Federal Confidentiality of Alcohol and Drug Abuse Patient Records regulations: The Federal rules restrict any use of the information to criminally investigate or prosecute any alcohol or drug abuse patient.[facility] CenterIn the event this information is protected by the Federal Confidentiality of Alcohol and Drug Abuse Patient Records regulations: The Federal rules restrict any use of the information to criminally investigate or prosecute any alcohol or drug abuse patient.[facility] CenterIn the event this information is protected by the Federal Confidentiality of Alcohol and Drug Abuse Patient Records regulations: The Federal rules restrict any use of the information to criminally investigate or prosecute any alcohol or drug abuse patient.[facility] CenterIn the event this information is protected by the Federal Confidentiality of Alcohol and Drug Abuse Patient Records regulations: The Federal rules restrict any use of the information to criminally investigate or prosecute any alcohol or drug abuse patient.[facility] CenterIn the event this information is protected by the Federal Confidentiality of Alcohol and Drug Abuse Patient Records regulations: The Federal rules restrict any use of the information to criminally investigate or prosecute any alcohol or drug abuse patient.[facility] CenterIn the event this information is protected by the Federal Confidentiality of Alcohol and Drug Abuse Patient Records regulations: The Federal rules restrict any use of the information to criminally investigate or prosecute any alcohol or drug abuse patient.[facility] CenterIn the event this information is protected by the Federal Confidentiality of Alcohol and Drug Abuse Patient Records regulations: The Federal rules restrict any use of the information to criminally investigate or prosecute any alcohol or drug abuse patient.[facility] CenterIn the event this information is protected by the Federal Confidentiality of Alcohol and Drug Abuse Patient Records regulations: The Federal rules restrict any use of the information to criminally investigate or prosecute any alcohol or drug abuse patient.[facility] CenterIn the event this information is protected by the Federal Confidentiality of Alcohol and Drug Abuse Patient Records regulations: The Federal rules restrict any use of the information to criminally investigate or prosecute any alcohol or drug abuse patient.[facility] CenterIn the event this information is protected by the Federal Confidentiality of Alcohol and Drug Abuse Patient Records regulations: The Federal rules restrict any use of the information to criminally investigate or prosecute any alcohol or drug abuse patient.[facility] CenterIn the event this information is protected by the Federal Confidentiality of Alcohol and Drug Abuse Patient Records regulations: The Federal rules restrict any use of the information to criminally investigate or prosecute any alcohol or drug abuse patient.[facility] CenterIn the event this information is protected by the Federal Confidentiality of Alcohol and Drug Abuse Patient Records regulations: The Federal rules restrict any use of the information to criminally investigate or prosecute any alcohol or drug abuse patient.[facility] CenterIn the event this information is protected by the Federal Confidentiality of Alcohol and Drug Abuse Patient Records regulations: The Federal rules restrict any use of the information to criminally investigate or prosecute any alcohol or drug abuse patient.[facility] CenterIn the event this information is protected by the Federal Confidentiality of Alcohol and Drug Abuse Patient Records regulations: The Federal rules restrict any use of the information to criminally investigate or prosecute any alcohol or drug abuse patient.[facility] CenterIn the event this information is protected by the Federal Confidentiality of Alcohol and Drug Abuse Patient Records regulations: The Federal rules restrict any use of the information to criminally investigate or prosecute any alcohol or drug abuse patient.[facility] CenterIn the event this information is protected by the Federal Confidentiality of Alcohol and Drug Abuse Patient Records regulations: The Federal rules restrict any use of the information to criminally investigate or prosecute any alcohol or drug abuse patient.[facility] CenterIn the event this information is protected by the Federal Confidentiality of Alcohol and Drug Abuse Patient Records regulations: The Federal rules restrict any use of the information to criminally investigate or prosecute any alcohol or drug abuse patient.[facility] CenterIn the event this information is protected by the Federal Confidentiality of Alcohol and Drug Abuse Patient Records regulations: The Federal rules restrict any use of the information to criminally investigate or prosecute any alcohol or drug abuse patient.[facility] CenterIn the event this information is protected by the Federal Confidentiality of Alcohol and Drug Abuse Patient Records regulations: The Federal rules restrict any use of the information to criminally investigate or prosecute any alcohol or drug abuse patient.[facility] CenterIn the event this information is protected by the Federal Confidentiality of Alcohol and Drug Abuse Patient Records regulations: The Federal rules restrict any use of the information to criminally investigate or prosecute any alcohol or drug abuse patient.[facility] CenterIn the event this information is protected by the Federal Confidentiality of Alcohol and Drug Abuse Patient Records regulations: The Federal rules restrict any use of the information to criminally investigate or prosecute any alcohol or drug abuse patient.[facility] CenterIn the event this information is protected by the Federal Confidentiality of Alcohol and Drug Abuse Patient Records regulations: The Federal rules restrict any use of the information to criminally investigate or prosecute any alcohol or drug abuse patient.[facility] CenterIn the event this information is protected by the Federal Confidentiality of Alcohol and Drug Abuse Patient Records regulations: The Federal rules restrict any use of the information to criminally investigate or prosecute any alcohol or drug abuse patient.[facility] CenterIn the event this information is protected by the Federal Confidentiality of Alcohol and Drug Abuse Patient Records regulations: The Federal rules restrict any use of the information to criminally investigate or prosecute any alcohol or drug abuse patient.[facility] CenterIn the event this information is protected by the Federal Confidentiality of Alcohol and Drug Abuse Patient Records regulations: The Federal rules restrict any use of the information to criminally investigate or prosecute any alcohol or drug abuse patient.[facility] CenterIn the event this information is protected by the Federal Confidentiality of Alcohol and Drug Abuse Patient Records regulations: The Federal rules restrict any use of the information to criminally investigate or prosecute any alcohol or drug abuse patient.[facility] CenterIn the event this information is protected by the Federal Confidentiality of Alcohol and Drug Abuse Patient Records regulations: The Federal rules restrict any use of the information to criminally investigate or prosecute any alcohol or drug abuse patient.[facility] CenterIn the event this information is protected by the Federal Confidentiality of Alcohol and Drug Abuse Patient Records regulations: The Federal rules restrict any use of the information to criminally investigate or prosecute any alcohol or drug abuse patient.[facility] CenterIn the event this information is protected by the Federal Confidentiality of Alcohol and Drug Abuse Patient Records regulations: The Federal rules restrict any use of the information to criminally investigate or prosecute any alcohol or drug abuse patient.[facility] CenterIn the event this information is protected by the Federal Confidentiality of Alcohol and Drug Abuse Patient Records regulations: The Federal rules restrict any use of the information to criminally investigate or prosecute any alcohol or drug abuse patient.[facility] CenterIn the event this information is protected by the Federal Confidentiality of Alcohol and Drug Abuse Patient Records regulations: The Federal rules restrict any use of the information to criminally investigate or prosecute any alcohol or drug abuse patient.[facility] CenterIn the event this information is protected by the Federal Confidentiality of Alcohol and Drug Abuse Patient Records regulations: The Federal rules restrict any use of the information to criminally investigate or prosecute any alcohol or drug abuse patient.[facility] CenterIn the event this information is protected by the Federal Confidentiality of Alcohol and Drug Abuse Patient Records regulations: The Federal rules restrict any use of the information to criminally investigate or prosecute any alcohol or drug abuse patient.[facility] CenterIn the event this information is protected by the Federal Confidentiality of Alcohol and Drug Abuse Patient Records regulations: The Federal rules restrict any use of the information to criminally investigate or prosecute any alcohol or drug abuse patient.[facility] Reason for Visit (unrecogniz ed section and content) Reason Comments Back Pain neck and back pain Reason Comments Cardiology Follow Up Reason Comments Follow Up Hypertension Reason Comments Pain Reason Comments Mat Inspector - Other Reason Comments Abdominal Pain 2 m Reason Comments Follow Up Hypertension Reason Comments BP 24 Hour Monitor Evaluation Reason Comments Results Reason Comments Ear Problem Dizziness Specialty Diagnoses / Procedures Referred By Contac t Referred To Contact Diagnoses Other specified hearing loss, unspecified ear Procedures HEARING TEST/AUDIOGRAM COMPRE AUDIOMETRY THRESHOLD ANALISAAL Fabien Simon PA-C [address] [place] [address] [facility] [address] [place] [address] Referral ID Status Reason Start Date Expiration Date V isits Requested Visits Authorized [id number] Closed Auto-Generate d Referral 05/29/2022 08/27/2022 1 1 Reason Comments Ear Problem follow up after hearing test Consult Reason Comments PT Eval Specialty Diagnoses / Procedures Referred By Contac t Referred To Contact Physical Therapy / PHYSICAL THERAPY Diagnoses Dizziness [R42] Lightheadedness [R42] Procedures PHYSICAL THERAPY EVALUATION HIGH COMPLEX 45 MINS THERAPEUTIC EXERCISES RE, EA 15 MIN. NEW RS PT VESTIBULAR DIZZY Fabien Gonzalez PA-C [address] [place] [address] Yanelis French, PT, DPT [address] [facility] [address] [place] [address] Referral ID Status Reason Start Date Expiration Date V isits Requested Visits Authorized [id number] Authorized 07/14/2022 05/06/2023 99 99 Reason Comments Physical Therapy Specialty Diagnoses / Procedures Referred By Contac t Referred To Contact Physical Therapy / PHYSICAL THERAPY Diagnoses Dizziness [R42] Lightheadedness [R42] Procedures PHYSICAL THERAPY EVALUATION HIGH COMPLEX 45 MINS THERAPEUTIC EXERCISES RE, EA 15 MIN. NEW RS PT VESTIBULAR DIZZY Fabien Gonzalez PA-C [address] [place] [address] Yanelis French, PT, DPT [address] [facility] [address] [place] [address] Reason Comments New Patient Reason Comments Radiology CT Specialty Diagnoses / Procedures Referred By Contac t Referred To Contact Radiology / RADIO CT SCAN [facility] RAD[facility] Diagnoses CTA ABDOMEN W IVCON Renovascular hypertension [I15.0] Chronic renal failure, stage 3a (HCC) [N18.31] Procedures CTA WWO ABD/PEL 400 Ting Camilo MD [address] [place] [address] [facility] [address] [place] [address] Referral ID Status Reason Start Date Expiration Date Visits Re quested Visits Authorized [id number] Closed 04/28/2021 07/27/2021 1 1 Reason Comments Radiology NM Specialty Diagnoses / Procedures Referred By Contac t Referred To Contact MOLECULAR & FUNCTIONAL IMAGING Diagnoses Arteritis, Takayasu (HCC) Arterial disease (HCC) Bilateral carotid artery stenosis Subclavian arterial stenosis (HCC) Procedures NM PET/CT WHOLE BODY INITIAL TUMOR IMAG PET W/CONCURNT CT-WHOLE BODY Tiara Lynne MD [address] [place] [address] Molecular [facility] Functional [facility] [address] [place] [address] Referral ID Status Reason Start Date Expiration Date V isits Requested Visits Authorized [id number] Closed Auto-Generate d Referral 04/22/2021 05/06/2021 [address] Specialty Diagnoses / Procedures Referred By Contac t Referred To Contact CT IMAGING Diagnoses Encounter for screening for cardiovascular disorders Procedures CTA NECK W IVCON CTA NECK, W/WO C, W/3D Elliott Salazar MD [id number] Imaging Referral ID Status Reason Start Date Expiration Date V isits Requested Visits Authorized [id number] Closed Auto-Generate d Referral 01/06/2020 02/04/2020 1 1 Reason Comments Follow-up Care Teams (unrecognized sec tion and content) Team Status: Active Member Role Status Dates Renetta Ridley Primary Care Provider Active Team Status: Inactive Member Role Status Dates Renetta Ridley Primary Care Provider Active Sta rt: August 19, 2023 End: August 19, 2023 Jose Sofia APRN Emergency Provider Active Start: August 19, 2023 End: August 19, 2023 Relief Map Modeler Relationship Specialty Start Date End Date Stephany Henderson, BENEFITS REPRESENTATIVE [address] [place] [address] PCP - General Family Practice 01/26/20 Stephany Henderson, BENEFITS REPRESENTATIVE [address] [place] [address] Referring Family Practice 03/17/19 Ting Camilo, [address] [place] [address] Primary Staff Physician Nephrology 06/02/21 Relief Map Modeler Relationship Specialty Start Date End Date Stephany Henderson, BENEFITS REPRESENTATIVE [address] [place] [address] PCP - General Family Practice 01/26/20 Stephany Henderson, BENEFITS REPRESENTATIVE [address] [place] [address] Referring Family Practice 03/17/19 Ting Camilo MD [address] [place] [address] Primary Staff Physician Nephrology 06/02/21 Relief Map Modeler Relationship Specialty Start Date End Date Stephany Henderson, BENEFITS REPRESENTATIVE [address] [place] [address] PCP - General Family Practice 01/26/20 Stephany Henderson, BENEFITS REPRESENTATIVE [address] [place] [address] Referring Family Practice 03/17/19 Ting Camilo MD [address] [place] [address] Primary Staff Physician Nephrology 06/02/21 Relief Map Modeler Relationship Specialty Start Date End Date Renetta Ridley, BENEFITS REPRESENTATIVE [address] [place] [address] PCP - General Family Practice 09/20/21 Stephany Henderson, BENEFITS REPRESENTATIVE [address] [place] [address] Referring Family Practice 03/17/19 Ting Camilo MD [address] [place] [address] Primary Staff Physician Nephrology 06/02/21 Relief Map Modeler Relationship Specialty Start Date End Date Renetta Ridley, BENEFITS REPRESENTATIVE [address] [place] [address] PCP - General Family Practice 09/20/21 Stephany Henderson, BENEFITS REPRESENTATIVE [address] [place] [address] Referring Family Practice 03/17/19 Ting Camilo MD [address] [place] [address] Primary Staff Physician Nephrology 06/02/21 Relief Map Modeler Relationship Specialty Start Date End Date Renetta Ridley, BENEFITS REPRESENTATIVE [address] [place] [address] PCP - General Family Practice 09/20/21 Stephany Henderson, BENEFITS REPRESENTATIVE [address] [place] [address] Referring Family Practice 03/17/19 Ting Camilo MD [address] [place] [address] Primary Staff Physician Nephrology 06/02/21 Relief Map Modeler Relationship Specialty Start Date End Date Renetta Ridley, BENEFITS REPRESENTATIVE [address] [place] [address] PCP - General Family Practice 09/20/21 Stephany Henderson, BENEFITS REPRESENTATIVE [address] [place] [address] Referring Family Practice 03/17/19 Ting Camilo MD [address] [place] [address] Primary Staff Physician Nephrology 06/02/21 Relief Map Modeler Relationship Specialty Start Date End Date Renetta Ridley, BENEFITS REPRESENTATIVE [address] [place] [address] PCP - General Family Practice 09/20/21 Stephany Henderson, BENEFITS REPRESENTATIVE [address] [place] [address] Referring Family Practice 03/17/19 Ting Camilo MD [address] [place] [address] Primary Staff Physician Nephrology 06/02/21 Relief Map Modeler Relationship Specialty Start Date End Date Renetta Ridley, BENEFITS REPRESENTATIVE [address] [place] [address] PCP - General Family Medicine 09/20/21 Stephany Henderson, BENEFITS REPRESENTATIVE [address] [place] [address] Referring Family Medicine 03/17/19 Ting Camilo MD [address] [place] [address] Primary Staff Physician Nephrology 06/02/21 Relief Map Modeler Relationship Specialty Start Date End Date Renetta Ridley, BENEFITS REPRESENTATIVE [address] [place] [address] PCP - General Family Medicine 09/20/21 Stephany Henderson, BENEFITS REPRESENTATIVE [address] [place] [address] Referring Family Medicine 03/17/19 Ting Camilo MD [address] [place] [address] Primary Staff Physician Nephrology 06/02/21 Relief Map Modeler Relationship Specialty Start Date End Date Renetta Ridley, BENEFITS REPRESENTATIVE [address] [place] [address] PCP - General Family Medicine 09/20/21 Stephany Henderson, BENEFITS REPRESENTATIVE [address] [place] [address] Referring Family Medicine 03/17/19 Ting Camilo MD [address] [place] [address] Primary Staff Physician Nephrology 06/02/21 Relief Map Modeler Relationship Specialty Start Date End Date Renetta Ridley, BENEFITS REPRESENTATIVE [address] [place] [address] PCP - General Family Medicine 09/20/21 Stephany Henderson, BENEFITS REPRESENTATIVE [address] [place] [address] Referring Family Medicine 03/17/19 Ting Camilo MD [address] [place] [address] Primary Staff Physician Nephrology 06/02/21 Relief Map Modeler Relationship Specialty Start Date End Date Renetta Ridley, BENEFITS REPRESENTATIVE [address] [place] [address] PCP - General Family Medicine 09/20/21 Stephany Henderson, BENEFITS REPRESENTATIVE [address] [place] [address] Referring Family Medicine 03/17/19 Ting Camilo MD [address] [place] [address] Primary Staff Physician Nephrology 06/02/21 Relief Map Modeler Relationship Specialty Start Date End Date Renetta Ridley, BENEFITS REPRESENTATIVE [address] [place] [address] PCP - General Family Medicine 09/20/21 Stephany Henderson, BENEFITS REPRESENTATIVE [address] [place] [address] Referring Family Medicine 03/17/19 Ting Camilo MD [address] [place] [address] Primary Staff Physician Nephrology 06/02/21 Relief Map Modeler Relationship Specialty Start Date End Date Renetta Ridley, BENEFITS REPRESENTATIVE [address] [place] [address] PCP - General Family Medicine 09/20/21 Stephany Henderson, BENEFITS REPRESENTATIVE [address] [place] [address] Referring Family Medicine 03/17/19 Ting Camilo MD [address] [place] [address] Primary Staff Physician Nephrology 06/02/21 Relief Map Modeler Relationship Specialty Start Date End Date Renetta Ridley, BENEFITS REPRESENTATIVE [address] [place] [address] PCP - General Family Medicine 09/20/21 Stephany Henderson, BENEFITS REPRESENTATIVE [address] [place] [address] Referring Family Medicine 03/17/19 Ting Camilo MD [address] [place] [address] Primary Staff Physician Nephrology 06/02/21 Relief Map Modeler Relationship Specialty Start Date End Date RejiRenetta menendez, BENEFITS REPRESENTATIVE [address] [place] [address] PCP - General Family Medicine 09/20/21 Stephany Henderson, BENEFITS REPRESENTATIVE [address] [place] [address] Referring Family Medicine 03/17/19 Ting Camilo MD [address] [place] [address] Primary Staff Physician Nephrology 06/02/21 Team Status: Inactive Member Role Status Dates Renetta Ridley Primary Care Provider Active Shelton Lala PA-C Emergency Provider Active Team Status: Inactive Member Role Status Dates Renetta Ridley Primary Care Provider Active Terrell Mc DO Emergency Provider Active Relief Map Modeler Relationship Specialty Start Date End Date Renetta Ridley, BENEFITS REPRESENTATIVE [address] [place] [address] PCP - General Family Medicine 09/20/21 Stephany Henderson, BENEFITS REPRESENTATIVE [address] [place] [address] Referring Family Medicine 03/17/19 Ting Camilo MD [address] [place] [address] Primary Staff Physician Nephrology 06/02/21 Relief Map Modeler Relationship Specialty Start Date End Date Renetta Ridley, BENEFITS REPRESENTATIVE [address] [place] [address] PCP - General Family Medicine 09/20/21 Stephany Henderson, BENEFITS REPRESENTATIVE [address] [place] [address] Referring Family Medicine 03/17/19 Ting Camilo MD [address] [place] [address] Primary Staff Physician Nephrology 06/02/21 Relief Map Modeler Relationship Specialty Start Date End Date Renetta Ridley, BENEFITS REPRESENTATIVE [address] [place] [address] PCP - General Family Medicine 09/20/21 Stephany Henderson, BENEFITS REPRESENTATIVE [address] [place] [address] Referring Family Medicine 03/17/19 Ting Camilo MD [address] [place] [address] Primary Staff Physician Nephrology 06/02/21 Relief Map Modeler Relationship Specialty Start Date End Date Renetta Ridley, BENEFITS REPRESENTATIVE [address] [place] [address] PCP - General Family Medicine 09/20/21 Stephany Henderson, BENEFITS REPRESENTATIVE [address] [place] [address] Referring Family Medicine 03/17/19 Ting Camilo MD [address] [place] [address] Primary Staff Physician Nephrology 06/02/21 Relief Map Modeler Relationship Specialty Start Date End Date Renetta Ridley, BENEFITS REPRESENTATIVE [address] [place] [address] PCP - General Family Medicine 09/20/21 Stephany Henderson, BENEFITS REPRESENTATIVE [address] [place] [address] Referring Family Medicine 03/17/19 Ting Camilo MD [address] [place] [address] Primary Staff Physician Nephrology 06/02/21 Relief Map Modeler Relationship Specialty Start Date End Date Renetta Ridley, BENEFITS REPRESENTATIVE [address] [place] [address] PCP - General Family Medicine 09/20/21 Stephany Henderson, BENEFITS REPRESENTATIVE [address] [place] [address] Referring Family Medicine 03/17/19 Ting Camilo MD [address] [place] [address] Primary Staff Physician Nephrology 06/02/21 Relief Map Modeler Relationship Specialty Start Date End Date Stephany Henderson BENEFITS REPRESENTATIVE [address] [place] [address] PCP - General Family Medicine 01/26/20 09/19/21 Stephany Henderson, BENEFITS REPRESENTATIVE [address] [place] [address] Referring Family Medicine 03/17/19 Relief Map Modeler Relationship Specialty Start Date End Date Stephany Henderson, BENEFITS REPRESENTATIVE [address] [place] [address] PCP - General Family Medicine 01/26/20 09/19/21 Stephany Henderson, BENEFITS REPRESENTATIVE [address] [place] [address] Referring Family Medicine 03/17/19 Relief Map Modeler Relationship Specialty Start Date End Date Stephany Henderson, BENEFITS REPRESENTATIVE [address] [place] [address] PCP - General Family Medicine 01/26/20 09/19/21 Stephany Henderson, BENEFITS REPRESENTATIVE [address] [place] [address] Referring Family Medicine 03/17/19 Relief Map Modeler Relationship Specialty Start Date End Date Stephany Henderson, BENEFITS REPRESENTATIVE [address] [place] [address] Referring Family Medicine 03/17/19 Relief Map Modeler Relationship Specialty Start Date End Date Keyur Quarles MD [address] [place] [id number] PCP - General Family Medicine 06/19/23 Renetta Ridley NP [address] [place] [address] Nurse Practitioner Family Medicine 06/19/23 Relief Map Modeler Relationship Specialty Start Date End Date Keyur Quarles MD [address] [place] [address] PCP - General Family Medicine 06/19/23 Renetta Ridley NP [address] [place] [address] Nurse Practitioner Family Medicine 06/19/23 Relief Map Modeler Relationship Specialty Start Date End Date Keyur Quarles MD [address] [place] [address] PCP - General Family Medicine 06/19/23 Renetta Ridley NP [address] [place] [id number] Nurse Practitioner [facility] 06/19/23 Relief Map Modeler Relationship Specialty Start Date End Date Renetta Ridley APRN-BENEFITS REPRESENTATIVE [address] [place], [place] [id number] PCP - General 09/04/23 Goals (unrecognized section and content) Goals may be documented in a n alternate sectionNo InformationNo InformationNo InformationGoals may be documented in an alternate section FOR RECORDS PERTAINING TO PATIENTS WHO ARE OR HAVE BEEN ENROLLED IN A CHEMICAL DEPENDENCY/SUBSTANCEABUSE PROGRAM, SOME INFORMATION MAY BE OMITTED. This clinical summary was aggregated from multiple sources. Caution should be exercised in using it in the provision of clinical care. This summary normalizes information from multiple sources, and as a consequence, information in this document may materially change the coding, format and clinical context of patient data. In addition, data may be omitted in some cases. CLINICAL DECISIONS SHOULD BE BASED ON THE PRIMARY CLINICAL RECORDS. [email or web address] provides no warranty or guarantee of the accuracy or completeness of information in this document.
== END 2024-01-30 12:59 | disposition home or self-care (01) ==
LOC: VC 12:58
PROVIDERS: PCP Nurse Practitioner; Visit Provider Nurse Practitioner
DX: I73.9 Peripheral vascular disease, unspecified (principal); I65.23 Occlusion and stenosis of bilateral carotid arteries; I70.91 Generalized atherosclerosis
CPT/HCPCS: 93923

== ENCOUNTER 2024-02-01 13:55 | Outpatient (OUT) | payer BC, SELFPAY ==
--- NOTE | 2024-02-01 14:05 | US_ITS ---
[address] [address] Patient Name: CARYN VALERO MRN: [id number] date: 1970 Sex: F Assigned Patient Location: Current Patient Location: .[facility] Accession/Order Number: [id number] Exam Date: 02/01/2024 14:20 Report Date: 02/01/2024 15:08 At the request of: SHAWN GRAHAM Procedure: US carotid duplex BI EXAMINATION: US carotid duplex BI HISTORY: Bilateral Carotid Artery Stenosis COMPARISON: No relevant comparison available. TECHNIQUE: Duplex Doppler ultrasound analysis of carotid and vertebral arteries. . Bilateral carotid arterial duplex examination was performed using B-mode, color flow and spectral analysis. Carotid stenosis is reported according to validated velocity parameters, similar to NASCET criteria. FINDINGS: RIGHT CAROTID ARTERY : Complete occlusion of the common carotid artery and carotid bulb. Predominantly reversal of flow within the internal carotid artery, but occasional normal antegrade flow. The external carotid artery appears to be being fed via reversal of flow through the ICA into the ECA. Subclavian: 43.53 cm/s / 0 cm/s CCA: Prox: Occluded Mid: Occluded Distal: Occluded BULB: Occluded ICA: Prox: 31.76 cm/s / 0 cm/s Mid: 7.58 cm/s / 15.49 cm/s Distal: 16.59 cm/s / 0 cm/s ECA: 37.23 cm/s / 13.07 cm/s VERTEBRAL: 66.86 cm/s / 35.02 cm/s ICA/CCA ratio: / LEFT CAROTID ARTERY Subclavian: / CCA: Prox: 81.40 cm/s / 34.81 cm/s Mid: 64.55 cm/s / 33.51 cm/s Distal: 74.90 cm/s / 45.15 cm/s BULB: 71.02 cm/s / 34.80 cm/s ICA: Prox: 74.90 cm/s / 43.86 cm/s Mid: 82.59 cm/s / 43.17 cm/s Distal: 120.05 cm/s / 60.91 cm/s ECA: 90.47 cm/s / 41.19 cm/s VERTEBRAL: 55.52 cm/s / 17.99 cm/s ICA/CCA ratio: / US/US carotid duplex BI IMPRESSION: 1. 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 2. Alternating directions of flow within the right internal carotid artery. I suspect reversal of flow within ICA feeding the external carotid artery. 3. Widely patent left carotid arteries. Findings were called to patient's ordering provider. Patient is being transferred to the emergency department due to experiencing recent strokelike symptoms. Electronically authenticated by: FIOR TORRES Date: 02/01/2024 15:08
--- NOTE | 2024-02-01 14:05 | US_ITS ---
The [address] [address] Patient Name: CARYN VALERO MRN: [id number] date: 1970 Sex: F Assigned Patient Location: US Current Patient Location: Accession/Order Number: [id number] Exam Date: 02/01/2024 14:20 Report Date: 02/02/2024 06:50 At the request of: SHAWN GRAHAM Procedure: US thyroid EXAMINATION: US thyroid HISTORY: Thyroid Nodule COMPARISON: No relevant comparison available. FINDINGS: RIGHT LOBE: 5 mm colloid cyst. Normal size, contour, and echotexture. Lobe size: 4.3 x 1.3 x 1.3 cm LEFT LOBE: Normal size and echotexture. Lobe size: 3.6 x 1.4 x 1.2 cm ISTHMUS: Normal size and echotexture. Thickness: 2 mm US/US thyroid IMPRESSION: 1. No abnormal or suspicious findings. Incidental colloid cyst within right lobe. Electronically authenticated by: FIOR TORRES Date: 02/02/2024 06:50
--- OUTSIDE RECORDS SUMMARY | 2024-02-01 14:07 | XMS_ITS | CCD ---
Author Organization [facility] Care Team Providers Care Catastrophe Claims Supervisor Name Role Phone Joyce MAGNAFLUX OPERATOR, Stephany R Unavailable Joyce MAGNAFLUX OPERATOR, Stephany R Primary Care Provider Ting Camilo MD Unavailable Aichholz MAGNAFLUX OPERATOR, Renetta Rosemary Primary Care Provider [phone] Joyce MAGNAFLUX OPERATOR, Stephany R Unavailable Ting Camilo MD Unavailable Aichholz MAGNAFLUX OPERATOR, Renetta Rosemary Primary Care Provider Joyce MAGNAFLUX OPERATOR, Stephany R Unavailable Aichholz MAGNAFLUX OPERATOR, Renetta Rosemary Primary Care Provider Joyce MAGNAFLUX OPERATOR, Stephany R Unavailable Torres [place], Ting Tim Unavailable Aichholz MAGNAFLUX OPERATOR, Renetta Rosemary Primary Care Provider Aichholz, Renetta J Primary Care Provider [phone] DO Terrell Mc Emergency Provider BARNEY Lala Emergency Provider DR GURMEET PUGH V Consulting Unavailable AICHHOLZ, MAGNAFLUX OPERATOR RENETTA Primary Care Unavailable AICHHOLZ, MAGNAFLUX OPERATOR RENETTA Attending Unavailable AICHHOLZ, MAGNAFLUX OPERATOR RENETTA Admitting Unavailable AICHHOLZ, MAGNAFLUX OPERATOR RENETTA Consulting Unavailable AICHHOLZ, MAGNAFLUX OPERATOR RENETTA Consulting Unavailable AICHHOLZ, MAGNAFLUX OPERATOR RENETTA Primary Care Unavailable AICHHOLZ, MAGNAFLUX OPERATOR RENETTA Attending Unavailable AICHHOLZ, MAGNAFLUX OPERATOR RENETTA Admitting Unavailable DR GURMEET PUGH V Consulting Unavailable AICHHOLZ, MAGNAFLUX OPERATOR RENETTA Primary Care Unavailable AICHHOLZ, MAGNAFLUX OPERATOR RENETTA Attending Unavailable AICHHOLZ, MAGNAFLUX OPERATOR RENETTA Admitting Unavailable AICHHOLZ, MAGNAFLUX OPERATOR RENETTA Consulting Unavailable DR GURMEET PUGH V Consulting Unavailable AICHHOLZ, MAGNAFLUX OPERATOR RENETTA Primary Care Unavailable AICHHOLZ, MAGNAFLUX OPERATOR RENETTA Attending Unavailable AICHHOLZ, MAGNAFLUX OPERATOR RENETTA Admitting Unavailable AICHHOLZ, MAGNAFLUX OPERATOR RENETTA Consulting Unavailable AICHHOLZ, MAGNAFLUX OPERATOR RENETTA Consulting Unavailable AICHHOLZ, MAGNAFLUX OPERATOR RENETTA Primary Care Unavailable AICHHOLZ, MAGNAFLUX OPERATOR RENETTA Attending Unavailable AICHHOLZ, MAGNAFLUX OPERATOR RENETTA Admitting Unavailable DR FIOR TORRES Consulting Unavailable AICHHOLZ, MAGNAFLUX OPERATOR RENETTA Consulting Unavailable AICHHOLZ, MAGNAFLUX OPERATOR RENETTA Primary Care Unavailable AICHHOLZ, MAGNAFLUX OPERATOR RENETTA Attending Unavailable AICHHOLZ, MAGNAFLUX OPERATOR RENETTA Admitting Unavailable DR FIOR TORRES Consulting Unavailable AICHHOLZ, MAGNAFLUX OPERATOR RENETTA Consulting Unavailable AICHHOLZ, MAGNAFLUX OPERATOR RENETTA Primary Care Unavailable AICHHOLZ, MAGNAFLUX OPERATOR RENETTA Attending Unavailable AICHHOLZ, MAGNAFLUX OPERATOR RENETTA Admitting Unavailable AICHHOLZ, MAGNAFLUX OPERATOR RENETTA Consulting Unavailable AICHHOLZ, MAGNAFLUX OPERATOR RENETTA Primary Care Unavailable AICHHOLZ, MAGNAFLUX OPERATOR RENETTA Attending Unavailable AICHHOLZ, MAGNAFLUX OPERATOR RENETTA Admitting Unavailable AICHHOLZ, MAGNAFLUX OPERATOR RENETTA Consulting Unavailable AICHHOLZ, MAGNAFLUX OPERATOR RENETTA Primary Care Unavailable AICHHOLZ, MAGNAFLUX OPERATOR RENETTA Referring Unavailable AICHHOLZ, MAGNAFLUX OPERATOR RENETTA Attending Unavailable AICHHOLZ, MAGNAFLUX OPERATOR RENETTA Admitting Unavailable AICHHOLZ, MAGNAFLUX OPERATOR RENETTA Consulting Unavailable AICHHOLZ, MAGNAFLUX OPERATOR RENETTA Primary Care Unavailable AICHHOLZ, MAGNAFLUX OPERATOR RENETTA Referring Unavailable AICHHOLZ, MAGNAFLUX OPERATOR RENETTA Attending Unavailable AICHHOLZ, MAGNAFLUX OPERATOR RENETTA Admitting Unavailable ANH LÓPEZ Consulting Unavailable ANH LÓPEZ Attending Unavailable ANH LÓPEZ Admitting Unavailable AICHHOLZ, MAGNAFLUX OPERATOR RENETTA Primary Care Unavailable Timmy Chavez Unavailable [...] Joyce SHIPLEY, Stephany R Primary Care Provider [phone] Keyur Quarles MD Primary Care Provider Khai DINING ROOM ATTENDANT, Renetta Unavailable Khai, Renetta J Primary Care Provider [phone] DEMETRIS Sofia Emergency Provider [phone] Jose Sofia Attending Unavailable Jose Sofia Admitting [...] amLODIPine; Translations: [AMLODIPINE] Drug Allergy 0 Swelling [facility] (10 sources) Penicillins; Translations: [PENICILLINS] Propensity to adverse reactions 2 Rash [facility] Work Phone: (20 sources) Penicillins Propensity to adverse reactions 2 [facility] Work Phone: (1 source) amLODIPine Drug Allergy [address] [facility] Repository (1 source) Penicillins Drug allergy (disorder) 3 [facility] Repository (4 sources) penicillAMINE Drug Allergy 4 Unknown, Unknown Reaction [facility] (4 sources) buPROPion Drug Allergy 4 GI intolerance [facility] Work Phone: (4 sources) Penicillins Propensity to adverse reactions 3 [facility] (4 sources) venlafaxine Drug Allergy 4 GI intolerance [facility] (1 source) amLODIPine Drug Allergy 4 [facility] Repository (1 source) penicillAMINE Drug Allergy 4 [facility] Repository (1 source) Penicillins Drug allergy (disorder) 4 [facility] Repository Medications Current Medications Medication Drug Class(es) [...] on above: Take 1 capsule by mo [facility] once daily. clopidogrel 75 mg oral tablet [...] on above: Take 1 capsule by mo [facility] once daily. 72 mcg. meclizine hydrochloride 12.5 mg oral tablet (3 sources) Antiemetic Start: 3 Meclizine Active 12.5 MG PO 2-3 TIMES PER DAY May 12, 2022 1:00am Comment on above: Take 1 tablet by [facility] as needed. omeprazole 20 mg delayed release oral tablet (20 sources) Proton Pump Inhibitor Start: 2 take 40 mg by mouth twice daily Omeprazole Active 40 MG PO Twice daily August 23, 2021 8:48am Start: 08-06-2020 omeprazole ([place] ILOSEC) 20 mg capsule 40 mg once [...] Comment on above: Take 1 tablet by [facility] as needed. Trulance 3mg (3 sources) take [...] 12:00am April 06, 2020 1:26pm estrogens, conjugated (fci) 0.45 mg oral tablet (20 sources) Estrogen [...] on above: Take 1 capsule by mo [facility] once daily. pantoprazole 40 mg delayed release [...] Discontinued (Side effects) take 1 capsule by [facility] every twelve hours as needed tiZANidine [...] artery disease; Translations: [Atherosclerotic heart disease of [place] coronary artery without angina pectoris] Onset: 2 [...] 08-19-2023 ALT [Catalytic activity/Vol] 25 U/L 7-52 [facility] Albumin [Mass/volume] in Ser um or Plasma by Bromocresol green (BCG) dye binding methoOrdered By: Jose Sofia on 08-19-2023 Albumin BCG dye [Mass/Vol] 4.0 g/dL 3.5-5.7 [facility] Alkaline phosphatase [Enzyma tic activity/volume] in Serum or PlasmaOrdered By: Jose Sofia on 08-19-2023 ALP [Catalytic activity/Vol] 64 U/L 34-104 [facility] Aspartate aminotransferase [ Enzymatic activity/volume] in Serum or PlasmaOrdered By: Jose Sofia on 08-19-2023 AST [Catalytic activity/Vol] 21 U/L 13-39 [facility] Automated erythrocytes count in urine sediment (number/area)Ordered By: Jose Sofia on 08-19-2023 RBC Auto (Urine sed) [#/Area] 3-4 [HPF] 0-4 [facility] Automated leukocytes count i n urine sediment (number/area)Ordered By: Jose Sofia on 08-19-2023 WBC Auto (Urine sed) [#/Area] 3-4 [HPF] 0-4 [facility] Basophils Auto (Bld) [#/Vol] Ordered By: Jose Sofia on 08-19-2023 Basophils (Bld) [#/Vol] 0.0 10*3/uL 0.0-0.2 [facility] Basophils/100 WBC Auto (Bld) Ordered By: Jose Sofia on 08-19-2023 Basophils/100 WBC (Bld) 0.3 % . [facility] Bilirubin Test strip Ql (U)O rdered By: Jose Sofia on 08-19-2023 Bilirubin Ql (U) 1+ Negative [facility] Bilirubin.direct [Mass/volum e] in Serum or PlasmaOrdered By: Jose Sofia on 08-19-2023 Bilirubin.direct [Mass/Vol] 0.10 mg/dL 0.03-0.18 [facility] Bilirubin.total [Mass/volume ] in Serum or PlasmaOrdered By: Jose Sofia on 08-19-2023 Bilirubin [Mass/Vol] 0.8 mg/dL 0.3-1.0 [facility] CT abdomen pelvis w conon CT abdomen pelvis w con [facility] [place] [place] [address] CT Scan Report Signed Patient: Regla Prajapati MR#: [id number] : [id number] Acct:[id number] Age/Sex: 52 / F ADM Date: 08/19/23 Loc: ER Room: Type: [facility] ER Attending Dr: Copies to: Jose Sofia [...] Vik Dupont M.D.08/19/2023 4:00 PM Dictation Location: [place] [address] Transcribed By: [facility] 08/19/23 1600 Dictated By: Vik Dupont II, MD 08/19/23 1553 Signed By: 08/19/23 1600 Normal [facility] Calcium [Mass/volume] in Ser um or PlasmaOrdered By: Jose Sofia on 08-19-2023 Calcium [Mass/Vol] 8.9 mg/dL 8.6-10.3 [facility] Carbon dioxide, total [Moles /volume] in Serum or PlasmaOrdered By: Jose Sofia on 08-19-2023 CO2 [Moles/Vol] 26.4 mmol/L 21.0-31.0 [facility] Chloride [Moles/volume] in S yariel or PlasmaOrdered By: Jose Sofia on 08-19-2023 Chloride [Moles/Vol] 100 mmol/L 98-107 [facility] Color Auto (U)Ordered By: Abdiel Sofia on 08-19-2023 Color (U) Dark yellow Yellow [facility] Complete Blood Count Auto Di ffon 08-19-2023 Basophils (Bld) [#/Vol] 0.0 10*3/uL Normal 0.0-0.2 [facility] Comment on above: Result Comment: PERF ORMED BY: [place] [address] PATHOLOGIST HYDRAULIC ROCK DRILL OPERATOR RAMONE CONTRERAS M.D. Performed By: #### C BC, MG, LIPASE, HEPATIC, CMP #### [address] Basophils/100 WBC (Bld) 0.3 % Normal . [facility] Comment on above: Performed By: #### C BC, MG, LIPASE, HEPATIC, CMP #### [address] Eosinophils (Bld) [#/Vol] 0.0 10*3/uL Normal 0.0-0.45 [facility] Comment on above: Performed By: #### C BC, MG, LIPASE, HEPATIC, CMP #### [address] Eosinophils/100 WBC (Bld) 0.1 % Normal . [facility] Comment on above: Performed By: #### C BC, MG, LIPASE, HEPATIC, CMP #### [address] Erythrocyte distribution width (RBC) [Ratio] 13.6 % Normal 11.9-15.3 [facility] Comment on above: Performed By: #### C BC, MG, LIPASE, HEPATIC, CMP #### [address] Hematocrit (Bld) [Volume fraction] 42.3 % Normal 34.0-46.4 [facility] Comment on above: Performed By: #### C BC, MG, LIPASE, HEPATIC, CMP #### [address] Hemoglobin (Bld) [Mass/Vol] 13.7 g/dL Normal 11.8-15.4 [facility] Comment on above: Performed By: #### C BC, MG, LIPASE, HEPATIC, CMP #### [address] Lymphocytes (Bld) [#/Vol] 1.1 10*3/uL Normal 1.00-4.8 [facility] Comment on above: Performed By: #### C BC, MG, LIPASE, HEPATIC, CMP #### [address] Lymphocytes/100 WBC (Bld) 11.0 % Normal . [facility] Comment on above: Performed By: #### C BC, MG, LIPASE, HEPATIC, CMP #### [address] MCH (RBC) [Entitic mass] 29.8 pg Normal 24.7-34.3 [facility] Comment on above: Performed By: #### C BC, MG, LIPASE, HEPATIC, CMP #### [address] MCV (RBC) [Entitic vol] 92.4 fL Normal 80-100 [facility] Comment on above: Performed By: #### C BC, MG, LIPASE, HEPATIC, CMP #### [address] Mean Corpuscular HGB Conc 32.2 g/dL Normal 32.0-35.0 [facility] Comment on above: Performed By: #### C BC, MG, LIPASE, HEPATIC, CMP #### [address] Monocytes (Bld) [#/Vol] 0.5 10*3/uL Normal 0.0-0.8 [facility] Comment on above: Performed By: #### C BC, MG, LIPASE, HEPATIC, CMP #### [address] Monocytes/100 WBC (Bld) 24.94 % High 0.00-20.00 [facility] Comment on above: Result Comment: For adults in ED, MDW > 20.0 may be associated with a higher risk of sepsis during the first 12 hrs of hospital admission Performed By: #### C BC, MG, LIPASE, HEPATIC, CMP #### [address] Monocytes/100 WBC (Bld) 5.1 % Normal . [facility] Comment on above: Performed By: #### C BC, MG, LIPASE, HEPATIC, CMP #### [address] Neutrophils (Bld) [#/Vol] 8.0 10*3/uL High 1.8-7.7 [facility] Comment on above: Performed By: #### C BC, MG, LIPASE, HEPATIC, CMP #### [address] Neutrophils/100 WBC (Bld) 83.5 % Normal . [facility] Comment on above: Performed By: #### C BC, MG, LIPASE, HEPATIC, CMP #### [address] NRBC% 0.0 /100{WBC} Normal 0-0.5 [facility] Comment on above: Performed By: #### C BC, MG, LIPASE, HEPATIC, CMP #### [address] Platelet mean volume (Bld) [Entitic vol] 7.0 fL Normal 6.3-10.7 [facility] Comment on above: Performed By: #### C BC, MG, LIPASE, HEPATIC, CMP #### [address] Platelets (Bld) [#/Vol] 226 10*3/uL Normal 150-450 [facility] Comment on above: Performed By: #### C BC, MG, LIPASE, HEPATIC, CMP #### [address] RBC (Bld) [#/Vol] 4.58 10*6/uL Normal 3.60-5.00 [facility] Comment on above: Performed By: #### C BC, MG, LIPASE, HEPATIC, CMP #### [address] WBC (Bld) [#/Vol] 9.6 10*3/uL Normal 3.8-11.6 [facility] Comment on above: Performed By: #### C BC, MG, LIPASE, HEPATIC, CMP #### [facility] [address] Comprehensive Metabolic Pane jenn 08-19-2023 Albumin [Mass/Vol] 4.0 g/dL Normal 3.5-5.7 [facility] Comment on above: Performed By: #### C BC, MG, LIPASE, HEPATIC, CMP #### [address] Albumin/Globulin [Mass ratio] 1.4 {ratio} Normal [facility] Comment on above: Performed By: #### C BC, MG, LIPASE, HEPATIC, CMP #### [address] ALP [Catalytic activity/Vol] 64 U/L Normal 34-104 [facility] Comment on above: Performed By: #### C BC, MG, LIPASE, HEPATIC, CMP #### [address] ALT [Catalytic activity/Vol] 25 U/L Normal 7-52 [facility] Comment on above: Performed By: #### C BC, MG, LIPASE, HEPATIC, CMP #### [address] Anion gap [Moles/Vol] 14.5 mmol/L Normal 6.0-15.0 [facility] Comment on above: Performed By: #### C BC, MG, LIPASE, HEPATIC, CMP #### [address] AST [Catalytic activity/Vol] 21 U/L Normal 13-39 [facility] Comment on above: Performed By: #### C BC, MG, LIPASE, HEPATIC, CMP #### [place] [address] [place] Bilirubin [Mass/Vol] 0.8 mg/dL Normal 0.3-1.0 [facility] Comment on above: Performed By: #### C BC, MG, LIPASE, HEPATIC, CMP #### [place] [address] [place] Calcium [Mass/Vol] 8.9 mg/dL Normal 8.6-10.3 [facility] Comment on above: Performed By: #### C BC, MG, LIPASE, HEPATIC, CMP #### [address] Chloride [Moles/Vol] 100 mmol/L Normal 98-107 [facility] Comment on above: Performed By: #### C BC, MG, LIPASE, HEPATIC, CMP #### [address] CO2 [Moles/Vol] 26.4 mmol/L Normal 21.0-31.0 [facility] Comment on above: Performed By: #### C BC, MG, LIPASE, HEPATIC, CMP #### [address] Creatinine [Mass/Vol] 1.04 mg/dL Normal 0.60-1.20 [facility] Comment on above: Performed By: #### C BC, MG, LIPASE, HEPATIC, CMP #### [address] Creatinine Clr Calc Pharmacy 58.25 Normal [facility] Comment on above: Performed By: #### C BC, MG, LIPASE, HEPATIC, CMP #### [address] GFR/1.73 sq M.predicted MDRD (S/P/Bld) [Vol rate/Area] mL/min/{1.73_m2} Normal [facility] Comment on above: Performed By: #### C BC, MG, LIPASE, HEPATIC, CMP #### [address] Globulin (S) [Mass/Vol] 2.8 g/dL Normal [facility] Comment on above: Performed By: #### C BC, MG, LIPASE, HEPATIC, CMP #### [address] Glucose [Mass/Vol] 119 mg/dL High 70-100 [facility] Comment on above: Result Comment: [facility] Glucose Reference Range is dependent on time and content of last meal. Glucose of more than 200 mg/dL in a nonstressed, ambulatory subject supports the diagnosis of Diabetes Mellitus. ADA recommended reference range Performed By: #### C BC, MG, LIPASE, HEPATIC, CMP #### [address] Potassium [Moles/Vol] 3.9 mmol/L Normal 3.5-5.1 [facility] Comment on above: Performed By: #### C BC, MG, LIPASE, HEPATIC, CMP #### [address] Protein [Mass/Vol] 6.8 g/dL Normal 6.4-8.9 [facility] Comment on above: Performed By: #### C BC, MG, LIPASE, HEPATIC, CMP #### [address] Sodium [Moles/Vol] 137 mmol/L Normal 136-145 [facility] Comment on above: Performed By: #### C BC, MG, LIPASE, HEPATIC, CMP #### [address] Urea nitrogen [Mass/Vol] 18 mg/dL Normal 7-25 [facility] Comment on above: Performed By: #### C BC, MG, LIPASE, HEPATIC, CMP #### [address] Creatinine [Mass/volume] in Serum or PlasmaOrdered By: Jose Sofia on 08-19-2023 Creatinine [Mass/Vol] 1.04 mg/dL 0.60-1.20 [facility] Dipstick and Microscopicon 0 08-19-2023 Appearance (U) Cloudy Critically abnormal Clear [facility] Comment on above: Order Comment: Name Collection Type:: Voided Performed By: #### A DDONUAPLUS #### [address] Bacteria,Urine None Seen Normal None Seen [facility] Comment on above: Order Comment: Name Collection Type:: Voided Performed By: #### A DDONUAPLUS #### [place] [address] [place] Bilirubin,Urine 1+ High Negative [facility] Comment on above: Order Comment: Name Collection Type:: Voided Performed By: #### A DDONUAPLUS #### [address] Color (U) Dark Yellow Critically abnormal Yellow [facility] Comment on above: Order Comment: Name Collection Type:: Voided Performed By: #### A DDONUAPLUS #### [address] Glucose Ql (U) Normal Normal Normal [facility] Comment on above: Order Comment: Name Collection Type:: Voided Performed By: #### A DDONUAPLUS #### [address] Hyaline Casts,Urine 0-8 Normal 0-8 [facility] Comment on above: Order Comment: Name Collection Type:: Voided Result Comment: PERF ORMED BY: [place] [address] PATHOLOGIST HYDRAULIC ROCK DRILL OPERATOR RAMONE CONTRERAS M.D. Performed By: #### A DDONUAPLUS #### [address] Ketones Ql (U) Trace High Negative [facility] Comment on above: Order Comment: Name Collection Type:: Voided Performed By: #### A DDONUAPLUS #### [place] [address] [place] Leukocyte esterase Test strip Ql (U) Negative Normal Negative [facility] Comment on above: Order Comment: Name Collection Type:: Voided Performed By: #### A DDONUAPLUS #### [place] [address] [place] Nitrite,Urine Negative Normal Negative [facility] Comment on above: Order Comment: Name Collection Type:: Voided Performed By: #### A DDONUAPLUS #### [place] [address] [place] Occult Blood,Urine Negative Normal Negative [facility] Comment on above: Order Comment: Name Collection Type:: Voided Result Comment: PERF ORMED BY: [place] [address] PATHOLOGIST HYDRAULIC ROCK DRILL OPERATOR RAMONE CONTRERAS M.D. Performed By: #### A DDONUAPLUS #### [address] pH (U) 5.5 [pH] Normal 5.0-9.0 [facility] Comment on above: Order Comment: Name Collection Type:: Voided Performed By: #### A DDONUAPLUS #### [address] Protein,Urine Trace High Negative [facility] Comment on above: Order Comment: Name Collection Type:: Voided Performed By: #### A DDONUAPLUS #### [address] RBC,Urine 3-4 Normal 0-4 [facility] Comment on above: Order Comment: Name Collection Type:: Voided Performed By: #### A DDONUAPLUS #### [place] [address] [place] Specificy [place],Urine 1.028 Normal 1.001-1.030 [facility] Comment on above: Order Comment: Name Collection Type:: Voided Performed By: #### A DDONUAPLUS #### [place] [address] [place] Squamous Epithelial Cell,Urine 5-9 High 0-2 [facility] Comment on above: Order Comment: Name Collection Type:: Voided Performed By: #### A DDONUAPLUS #### [place] [address] [place] Urobilinogen,Urine Normal Normal Normal [facility] Comment on above: Order Comment: Name Collection Type:: Voided Performed By: #### A DDONUAPLUS #### [place] [address] [place] WBC,Urine 3-4 Normal 0-4 [facility] Comment on above: Order Comment: Name Collection Type:: Voided Performed By: #### A DDONUAPLUS #### [facility] [address] Eosinophils Auto (Bld) [#/Vo l]Ordered By: Jose Sofia on 08-19-2023 Eosinophils (Bld) [#/Vol] 0.0 10*3/uL 0.0-0.45 [facility] Eosinophils/100 WBC Auto (Bl d)Ordered By: Jose Sofia on 08-19-2023 Eosinophils/100 WBC (Bld) 0.1 % . [facility] Erythrocyte distribution wid th Auto (RBC) [Ratio]Ordered By: Jose Sofia on 08-19-2023 Erythrocyte distribution width (RBC) [Ratio] 13.6 % 11.9-15.3 [facility] Globulin Calc (S) [Mass/Vol] Ordered By: Jose Sofia on 08-19-2023 Globulin (S) [Mass/Vol] 2.8 g/dL [facility] Glucose [Mass/volume] in Ser um or PlasmaOrdered By: Jose Sofia on 08-19-2023 Glucose [Mass/Vol] 119 mg/dL 70-100 [facility] Comment on above: ADA recommended refe rence rangeRandom Glucose Reference Range is dependent on time and content of last meal. Glucose of more than 200 mg/dL in a nonstressed, ambulatory subject supports the diagnosis of Diabetes Mellitus. Hematocrit Auto (Bld) [Volum e fraction]Ordered By: Jose Sofia on 08-19-2023 Hematocrit (Bld) [Volume fraction] 42.3 % 34.0-46.4 [facility] Hemoglobin [Mass/volume] in BloodOrdered By: Jose Sofia on 08-19-2023 Hemoglobin (Bld) [Mass/Vol] 13.7 g/dL 11.8-15.4 [facility] Hepatic Panelon 08-19-2023 Bilirubin,Indirect 0.7 mg/dL Normal [facility] Comment on above: Performed By: #### C BC, MG, LIPASE, HEPATIC, CMP #### [facility] [address] Bilirubin.indirect [Mass/Vol] 0.10 mg/dL Normal 0.03-0.18 [facility] Comment on above: Performed By: #### C BC, MG, LIPASE, HEPATIC, CMP #### [facility] [address] [place] [address] Ketones Auto test strip (U) [Mass/Vol]Ordered By: Jose Sofia on 08-19-2023 Ketones (U) [Mass/Vol] Trace Negative [facility] Laboratory - UrinalysisOrder ed By: Jose Sofia on 08-19-2023 Hyaline casts LM Ql (Urine sed) 0-8 [LPF] 0-8 [facility] Leukocytes [#/volume] correc flo for nucleated erythrocytes in Blood by Automated counOrdered By: Jose Sofia on 08-19-2023 WBC corrected for nucl RBC Auto (Bld) [#/Vol] 9.6 10*3/uL 3.8-11.6 [facility] Lipaseon 08-19-2023 Lipase [Catalytic activity/Vol] 15.0 U/L Normal 11.0-82.0 [facility] Comment on above: Result Comment: PERF ORMED BY: [place] [address] PATHOLOGIST HYDRAULIC ROCK DRILL OPERATOR RAMONE CONTRERAS M.D. Performed By: #### C BC, MG, LIPASE, HEPATIC, CMP #### [facility] [address] [place] [address] Lipase [Enzymatic activity/v olume] in Serum or PlasmaOrdered By: Jose Sofia on 08-19-2023 Lipase [Catalytic activity/Vol] 15.0 U/L 11.0-82.0 [facility] Lymphocytes Auto (Bld) [#/Vo l]Ordered By: Jose Sofia on 08-19-2023 Lymphocytes (Bld) [#/Vol] 1.1 10*3/uL 1.00-4.8 [facility] Lymphocytes/100 WBC Auto (Bl d)Ordered By: Jose Sofia on 08-19-2023 Lymphocytes/100 WBC (Bld) 11.0 % . [facility] MCH Auto (RBC) [Entitic mass ]Ordered By: Jose Sofia on 08-19-2023 MCH (RBC) [Entitic mass] 29.8 pg 24.7-34.3 [facility] MCHC Auto (RBC) [Mass/Vol]Or dered By: Jose Sofia on 08-19-2023 MCHC (RBC) [Mass/Vol] 32.2 g/dL 32.0-35.0 [facility] MCV Auto (RBC) [Entitic vol] Ordered By: Jose Sofia on 08-19-2023 MCV (RBC) [Entitic vol] 92.4 fL 80-100 [facility] Magnesiumon 08-19-2023 Magnesium [Mass/Vol] 1.3 mg/dL Low 1.9-2.7 [facility] Comment on above: Performed By: #### C BC, MG, LIPASE, HEPATIC, CMP #### [facility] [address] [place] [address] Magnesium [Mass/volume] in S yariel or PlasmaOrdered By: Jose Sofia on 08-19-2023 Magnesium [Mass/Vol] 1.3 mg/dL 1.9-2.7 [facility] Monocyte distribution width [Entitic volume] in Blood by AutomatedOrdered By: Jose Sofia on 08-19-2023 Monocyte distribution width Auto (Bld) [Entitic vol] 24.94 % 0.00-20.00 [facility] Comment on above: For adults in ED, MD W > 20.0 may be associated with a higher risk of sepsis during the first 12 hrs of hospital admission Monocytes Auto (Bld) [#/Vol] Ordered By: Jose Sofia on 08-19-2023 Monocytes (Bld) [#/Vol] 0.5 10*3/uL 0.0-0.8 [facility] Monocytes/100 WBC Auto (Bld) Ordered By: Jose Sofia on 08-19-2023 Monocytes/100 WBC (Bld) 5.1 % . [facility] Neutrophils Auto (Bld) [#/Vo l]Ordered By: Jose Sofia on 08-19-2023 Neutrophils (Bld) [#/Vol] 8.0 10*3/uL 1.8-7.7 [facility] Neutrophils/100 WBC Auto (Bl d)Ordered By: Jose Sofia on 08-19-2023 Neutrophils/100 WBC (Bld) 83.5 % . [facility] Nitrite Test strip Ql (U)Ord ered By: Jose Sofia on 08-19-2023 Nitrite Ql (U) Negative Negative [facility] No Panel InformationOrdered By: Jose Sofia on 08-19-2023 Estimated GFR (CKD-EPI) > 60.0 mL/Min [facility] Creatinine Clearance (Chem 58.25 [facility] Nucleated erythrocytes [Pres ence] in Blood by Automated countOrdered By: Jose Sofia on 08-19-2023 Nucleated RBC Auto Ql (Bld) 0.0 /100{WBC} 0-0.5 [facility] Platelet mean volume Auto (B ld) [Entitic vol]Ordered By: Jose Sofia on 08-19-2023 Platelet mean volume (Bld) [Entitic vol] 7.0 fL 6.3-10.7 [facility] Platelets Auto (Bld) [#/Vol] Ordered By: Jose Sofia on 08-19-2023 Platelets (Bld) [#/Vol] 226 10*3/uL 150-450 [facility] Potassium [Moles/volume] in Serum or PlasmaOrdered By: Jose Sofia on 08-19-2023 Potassium [Moles/Vol] 3.9 mmol/L 3.5-5.1 [facility] Protein Auto test strip (U) [Mass/Vol]Ordered By: Jose Sofia on 08-19-2023 Protein (U) [Mass/Vol] Trace mg/dL Negative [facility] Protein [Mass/volume] in Ser um or PlasmaOrdered By: Jose Sofia on 08-19-2023 Protein [Mass/Vol] 6.8 g/dL 6.4-8.9 [facility] RBC Auto (Bld) [#/Vol]Ordere d By: Jose Sofia on 08-19-2023 RBC (Bld) [#/Vol] 4.58 10*6/uL 3.60-5.00 [facility] Serum or plasma albumin/glob ulin mass ratioOrdered By: Jose Sofia on 08-19-2023 Albumin/Globulin [Mass ratio] 1.4 {ratio} [facility] Serum or plasma anion gap de terminationOrdered By: Jose Sofia on 08-19-2023 Anion gap [Moles/Vol] 14.5 mmol[facility]L [facility] Serum or plasma non-glucuron idated bilirubin measurement (mass/volume)Ordered By: Jose Sofia 08-19-2023 Bilirubin.indirect [Mass/Vol] 0.7 mg/dL [facility] Sodium [Moles/volume] in Ser um or PlasmaOrdered By: Jose Sofia 08-19-2023 Sodium [Moles/Vol] 137 mmol/L 136-145 [facility] Specific gravity Auto test s trip (U) [Rel density]Ordered By: Jose Sofia 08-19-2023 Specific gravity (U) [Rel density] 1.028 1.001-1.030 [facility] Squamous epithelial cells de tection in urine sediment by light microscopyOrdered By: Jose Sofia 08-19-2023 Epithelial cells.squamous LM Ql (Urine sed) 5-9 [HPF] 0-2 [facility] Urea nitrogen [Mass/volume] in Serum or PlasmaOrdered By: Jose Sofia 08-19-2023 Urea nitrogen [Mass/Vol] 18 mg/dL 7-25 [facility] Urine bacteria detection by automated methodOrdered By: Jose Sofia 08-19-2023 Bacteria Auto Ql (U) None seen None Seen [facility] Urine clarity by refractomet ry automatedOrdered By: Jose Sofia 08-19-2023 Clarity Refractometry automated (U) Cloudy Clear [facility] Urine glucose measurement by automated test strip (mass/volume)Ordered By: Jose Sofia 08-19-2023 Glucose Auto test strip (U) [Mass/Vol] Normal mg/dL Normal [facility] Urine hemoglobin detection b y automated test stripOrdered By: Jose Sofia 08-19-2023 Hemoglobin Auto test strip Ql (U) Negative Negative [facility] Urine leukocyte esterase det ection by automated test stripOrdered By: Jose Sofia on 08-19-2023 Leukocyte esterase Auto test strip Ql (U) Negative Negative [facility] Urobilinogen Auto test strip (U) [Mass/Vol]Ordered By: Jose Sofia on 08-19-2023 Urobilinogen (U) [Mass/Vol] Normal mg/dL Normal [facility] WBC Auto (Bld) [#/Vol]Ordere d By: Jose Sofia on 08-19-2023 WBC (Bld) [#/Vol] 9.6 10*3/uL 3.8-11.6 [facility] pH Auto test strip (U)Ordere d By: Jose Sofia on 08-19-2023 pH (U) 5.5 [pH] 5.0-9.0 [facility] MICROALB CREAT RATIO RAN DOMon 06-20-2023 CREATININE URINE RANDOM 109.18 mg/dL 20.0 0 - 300.00 mg/dL [facility] MICROALBUM CREATININE RATIO UR 11.9 mg/g 0.0 - 29.9 mg/g [facility] Comment on above: NO MICROALBUMINURIA 0-29 MG/G CLINICAL MICROALBUMINURIA 30-300 MG/G MACROALBUMINURIA >300 MG/G MICROALBUMIN URINE RANDOM <1.3 NINF - 30.0 mg/dL [facility] CLINISYNC [facility] CNOVon 09-01-2022 CNOV Office Visit (NEURAV ) REGLA PRAJAPATI ([id number]) 1970 F Date Time Provider Department 09/01/22 11:30 AM KARTHIK ZARATE During your visit today, we recorded the following information about you: Pulse Blood pressure 73/minute 114/82 Karthik Zarate DO 09/02/2022 12:40 PM Signed [facility] [place] New Patient Consultation to this clinic, previously [...] once daily. (more content not included)... Normal [facility] CNPMelany 08-03-2022 CNPN Telephone ([facility]) REGLA PRAJAPATI ([id number]) 1970 F Date Time Provider Department 08/03/22 FERMIN BEGUM [facility] During your visit today, we recorded [...] evaluation She is agreeable and going to [facility] ED Nicole Mackay RN 08/04/2022 2:39 PM Signed ED is good. Plavix is hard to stop for her, but if risks outweigh benefits given her issues with bleeding, then reasonable risk to take. RM Called dentist left message regarding above-Dr. Robert Matthew [phone] Also see my chart message to pt [...] Encounter Status:Closed by NICOLE BARILLAS on 08/04/22 [facility] CNTHERAPYon 07-27-2022 CNTHERAPY OT/PT/Speech Visit (PTAMCF) REGLA PRAJAPATI ([id number]) 1970 F Date Time Provider Department 07/27/22 1:00 PM IS[facility] Date Time Provider Department [place] 07/27/2022 1:00 PM [id number], KARA [facility] Reason for Visit: Physical Therapy [503] Primary [...] Take 1 capsule by mouth once daily. [facility] CNOVon 07-26-2022 CNOV Office Visit (KENDELL ) REGLA PRAJAPATI ([id number]) 1970 F Date Time Provider Department 07/26/22 12:30 PM CARMEN LOMBARDI During your visit today, we recorded the following information about you: Carmen Lombardi, AUD 07/26/2022 3:59 PM Signed [facility] [place] [facility] Laboratory Vestibular Test Battery Report Name: Regla Prajapati [facility]#: [id number] Date of Service: 07/26/2022 Date of : 1970 Age: [age] year old Referred by: Fabien Gonzalez PA-C And is a patient of Renetta Ridley CNP, QUINTEN Referred for: Evaluation of suspected change in hearing, tinnitus, or balance. Referral documented: In an order in [facility] Pretest Instructions: The following pretest instructions [...] that ling (more content not included)... 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 Reason for Visit: PT Eval [...] 1 capsule by mouth once daily. 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 LOCATION: [facility] BREAST COMPOSITION: Heterogeneously dense,which may obscure [...] M.D. on 07/14/2022 at 07:50 Normal [facility] CNOVon 07-12-2022 CNOV Office Visit (OTOLLN ) ALOREGLA Li ([id number]) 1970 F Date Time Provider Department 07/12/22 10:30 AM FABIEN GONZALEZ During your visit today, we recorded the following information about you: Temperature Pulse Blood pressure 98.7 degrees 95/minute 119/88 Fabien Gonzalez PA-C 07/12/2022 12:48 PM Signed [facility] [place] [facility] NOTE CC: Regla Prajapati is a [...] bone conduction and speech recognition testing. CPT code:10886 RIGHT EAR: Hearing Sensitivity: Hearing sensitivity within [...] daily. tiZAN (more content not included)... Normal [facility] CNOV Office Visit (OTAULO ) REGLA PRAJAPATI ([id number]) 1970 F Date Time Provider Department 07/12/22 10:00 AM VALENTINA SINGLETARY During your visit today, we recorded the following information about you: Weston Cotton, CCC-A 07/12/2022 10:25 AM Signed [facility] [place] AUDIOLOGIC EVALUATION REPORT Name: Regla Prajapati [facility]#: [id number] Date of Service: 07/12/2022 Date of : 1970 Age: [age] year old Referred by: Fabien Gonzalez [address] [facility] [id number] Referred for: Evaluation of the cause of disorder of hearing, tinnitus, or balance. Referral documented: In an order in [facility] Patient's major complaints: Complaints of recent [...] evaluation of middle ear function. CPT code: 58708 RIGHT EAR: Normal ME pressure and TM compliance (mobility). LEFT EAR: Normal ME pressure and TM compliance (mobility). ACOUSTIC REFLEXES Description of procedure: This test is an objective measure of auditory and facial nerve pathways. CPT code: 47584, 32429 RIGHT EAR PROBE EAR: (ipsi right stimulus [...] bone conduction and speech recognition testing. CPT code:99112 RIGHT EAR: Hearing Sensitivity: Hearing sensitivity within [...] to proceed with obtaining hearing aids through [facility] Audiology Section. 3. Annual recheck. 4. Hearing conservation. 5. The patient was counseled and given written information regarding effective communication strategies to enhance communication ability. 6. The patient was counseled and given written educational information re: the relationship between hearing loss and tinnitus, as well as, other common causes of tinnitus and options for tinnitus management. Beni Cotton, GRAYSON/A Clinical Cnc Mill Set Up Operator GROVES Abbrev- iation Definition Degree of hearing sensitivity dB range WNL within normal limits WNL 0 - 20 SNHL sensori (more content not included)... Normal [facility] CNPNon 07-04-2022 CNPN Telephone (KIDMMN) REGLA PRAJAPATI ([id number]) 1970 F Date Time Provider Department 07/04/22 [...] Status:Closed by TING CAMILO on 07/04/22 Normal [facility] Basophils Auto (Bld) [#/Vol] Ordered By: Shahzad Obrien on 06-25-2022 Basophils (Bld) [#/Vol] 0.0 10*3/uL 0.0-0.2 [facility] Basophils/100 WBC Auto (Bld) Ordered By: Shahzad Obrien on 06-25-2022 Basophils/100 WBC (Bld) 0.3 % . [facility] Body fluid albumin measureme nt (mass/volume)Ordered By: Shahzad Obrien on 06-25-2022 Albumin (Body fld) [Mass/Vol] 4.3 g/dL 3.2-5.5 [facility] Creatinine and Glomerular fi ltration rate.predicted panel (S/P/Bld)Ordered By: Shahzad Obrien on 06-25-2022 Creatinine [Mass/Vol] 1.17 mg/dL 0.44-1.03 [facility] Eosinophils Auto (Bld) [#/Vo l]Ordered By: Shahzad Obrien on 06-25-2022 Eosinophils (Bld) [#/Vol] 0.0 10*3/uL 0.0-0.45 [facility] Eosinophils/100 WBC Auto (Bl d)Ordered By: Shahzad Obrien on 06-25-2022 Eosinophils/100 WBC (Bld) 0.3 % . [facility] Erythrocyte distribution wid th Auto (RBC) [Ratio]Ordered By: Shahzad Obrien on 06-25-2022 Erythrocyte distribution width (RBC) [Ratio] 13.2 % 11.9-15.3 [facility] Estimated glomerular filtrat ion rate (GFR) non- AmericanOrdered By: Shahzad Obrien on 06-25-2022 GFR/1.73 sq M.predicted among non-blacks MDRD (S/P/Bld) [Vol rate/Area] 49 mL/Min [facility] Globulin Calc (S) [Mass/Vol] Ordered By: Shahzad Obrien on 06-25-2022 Globulin (S) [Mass/Vol] 3.1 g/dL [facility] Hematocrit Auto (Bld) [Volum e fraction]Ordered By: Shahzad Obrien on 06-25-2022 Hematocrit (Bld) [Volume fraction] 41.9 % 34.0-46.4 [facility] Hemoglobin [Mass/volume] in BloodOrdered By: Shahzad Obrien on 06-25-2022 Hemoglobin (Bld) [Mass/Vol] 13.8 g/dL 11.8-15.4 [facility] Laboratory - Chemistry and C hemistry - challengeOrdered By: Shelton Lala on 06-25-2022 Lipase [Catalytic activity/Vol] 36.0 U/L 22-51 [facility] Leukocytes [#/volume] correc flo for nucleated erythrocytes in Blood by Automated counOrdered By: Shahzad Obrien on 06-25-2022 WBC corrected for nucl RBC Auto (Bld) [#/Vol] 12.4 10*3/uL 3.8-11.6 [facility] Lymphocytes Auto (Bld) [#/Vo l]Ordered By: Shahzad Obrien on 06-25-2022 Lymphocytes (Bld) [#/Vol] 0.6 10*3/uL 1.00-4.8 [facility] Lymphocytes/100 WBC Auto (Bl d)Ordered By: Shahzad Obrien on 06-25-2022 Lymphocytes/100 WBC (Bld) 5.2 % . [facility] MCH Auto (RBC) [Entitic mass ]Ordered By: Shahzad Obrien on 06-25-2022 MCH (RBC) [Entitic mass] 29.8 pg 24.7-34.3 [facility] MCHC Auto (RBC) [Mass/Vol]Or dered By: Shahzad Obrien on 06-25-2022 MCHC (RBC) [Mass/Vol] 32.9 g/dL 32.0-35.0 [facility] MCV Auto (RBC) [Entitic vol] Ordered By: Shahzad Obrien on 06-25-2022 MCV (RBC) [Entitic vol] 90.5 fL 80-100 [facility] Monocyte distribution width [Entitic volume] in Blood by AutomatedOrdered By: Shahzad Obrien on 06-25-2022 Monocyte distribution width Auto (Bld) [Entitic vol] 22.26 % 0.00-20.00 [facility] Comment on above: For adults in ED, MD W > 20.0 may be associated with a higher risk of sepsis during the first 12 hrs of hospital admission Monocytes Auto (Bld) [#/Vol] Ordered By: Shahzad Obrien on 06-25-2022 Monocytes (Bld) [#/Vol] 0.2 10*3/uL 0.0-0.8 [facility] Monocytes/100 WBC Auto (Bld) Ordered By: Shahzad Obrien on 06-25-2022 Monocytes/100 WBC (Bld) 1.9 % . [facility] Neutrophils Auto (Bld) [#/Vo l]Ordered By: Shahzad Obrien on 06-25-2022 Neutrophils (Bld) [#/Vol] 11.5 10*3/uL 1.8-7.7 [facility] Neutrophils/100 WBC Auto (Bl d)Ordered By: Shahzad Obrien on 06-25-2022 Neutrophils/100 WBC (Bld) 92.3 % . [facility] No Panel InformationOrdered By: Shahzad Obrien on 06-25-2022 Estimated GFR () 59 mL/Min [facility] Comment on above: GFR estimated refere nce range: According to KDOQI guidelines, <60 ml/min/1.73m2 is sufficient to diagnose a patient with chronic kidney disease. Pharmacy Creatinine Clearance (Chem 50.76 [facility] Nucleated erythrocytes [Pres ence] in Blood by Automated countOrdered By: Shahzad Obrien on 06-25-2022 Nucleated RBC Auto Ql (Bld) 0.0 /100{WBC} 0-0.5 [facility] Platelet mean volume Auto (B ld) [Entitic vol]Ordered By: Shahzad Obrien on 06-25-2022 Platelet mean volume (Bld) [Entitic vol] 7.0 fL 6.3-10.7 [facility] Platelets Auto (Bld) [#/Vol] Ordered By: Shahzad Obrien on 06-25-2022 Platelets (Bld) [#/Vol] 276 10*3/uL 150-450 [facility] Protein [Mass/volume] in Ser um or PlasmaOrdered By: Shahzad Obrien on 06-25-2022 Protein [Mass/Vol] 7.4 g/dL 6.1-7.9 [facility] RBC Auto (Bld) [#/Vol]Ordere d By: Shahzad Obrien on 06-25-2022 RBC (Bld) [#/Vol] 4.63 10*6/uL 3.60-5.00 [facility] Serum or plasma alanine mejía otransferase measurement without P-5'-P (enzymatic activiOrdered By: Shahzad Obrien on 06-25-2022 ALT No additional P-5'-P [Catalytic activity/Vol] 36 U/L 10-60 [facility] Serum or plasma albumin/glob ulin mass ratioOrdered By: Shahzad Obrien on 06-25-2022 Albumin/Globulin [Mass ratio] 1.4 {ratio} [facility] Serum or plasma alkaline annabelle sphatase measurement (enzymatic activity/volume)Ordered By: Shahzad Obrien on 06-25-2022 ALP [Catalytic activity/Vol] 110 U/L 32-92 [facility] Serum or plasma anion gap de terminationOrdered By: Shahzad Obrien on 06-25-2022 Anion gap [Moles/Vol] 17.7 mmol/L 6.0-15.0 [facility] Serum or plasma aspartate am inotransferase measurement (enzymatic activity/volume)Ordered By: Shahzad Obrien on 06-25-2022 AST [Catalytic activity/Vol] 26 U/L 10-42 [facility] Serum or plasma calcium laureen urement (mass/volume)Ordered By: Shahzad Obrien on 06-25-2022 Calcium [Mass/Vol] 9.6 mg/dL 8.2-10.2 [facility] Serum or plasma chloride silverio surement (moles/volume)Ordered By: Shahzad Obrien on 06-25-2022 Chloride [Moles/Vol] 101 mmol/L 95-114 [facility] Serum or plasma glucose laureen urement (mass/volume)Ordered By: Shahzad Obrien on 06-25-2022 Glucose [Mass/Vol] 127 mg/dL 70-100 [facility] Comment on above: ADA recommended refe rence rangeRandom Glucose Reference Range is dependent on time and content of last meal. Glucose of more than 200 mg/dL in a nonstressed, ambulatory subject supports the diagnosis of Diabetes Mellitus. Serum or plasma potassium me asurement (moles/volume)Ordered By: Shahzad Obrien on 06-25-2022 Potassium [Moles/Vol] 4.2 mmol/L 3.5-5.1 [facility] Serum or plasma sodium measu rement (moles/volume)Ordered By: Shahzad Obrien on 06-25-2022 Sodium [Moles/Vol] 137 mmol/L 136-146 [facility] Serum or plasma total biliru bin measurement (mass/volume)Ordered By: Shahzad Obrien on 06-25-2022 Bilirubin [Mass/Vol] 0.8 mg/dL 0.3-1.2 [facility] Serum or plasma total carbon dioxide measurement (moles/volume)Ordered By: Shahzad Obrien on 06-25-2022 CO2 [Moles/Vol] 22.5 mmol/L 22.0-30.0 [facility] Serum or plasma urea nitroge n measurement (mass/volume)Ordered By: Shahzad Obrien on 06-25-2022 Urea nitrogen [Mass/Vol] 14 mg/dL 9-23 [facility] WBC Auto (Bld) [#/Vol]Ordere d By: Shahzad Obrien on 06-25-2022 WBC (Bld) [#/Vol] 12.4 10*3/uL 3.8-11.6 [facility] CNOVon 06-22-2022 CNOV Office Visit (KIDMMN ) REGLA PRAJAPATI ([id number]) 1970 F Date Time Provider Department 06/22/22 3:00 PM 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 Average BP: 110/77 AOBP - Standardized BP [...] patient to return monitor by mail via [employer] no later than: 06/23/2022. Serial number: [id number] [employer] Tracking number [id number] Did the patient receive a blood pressure [...] office BP reading and results downloaded into [employer]. Average BP: 110/77 AOBP - Standardized BP [...] patient to return monitor by mail via [employer] no later than: 06/23/2022. Serial number: [id number] [employer] Tracking number [id number] Did the patient receive a blood pressure [...] for Visit: BP 24 Hour Monitor Evaluation [6933] Primary Visit Diagnosis:Hypotension, unspecified hypotension type [I95.9] [...] as neede (more content not included)... Normal [facility] CN Office Visit (MIRTA ) REGLA PRAJAPATI ([id number]) 1970 F Date Time Provider Department 06/22/22 [...] acute dist (more content not included)... Normal [facility] ECG COMPLETEon 06-22-2022 ECG COMPLETE Ventricular Rate : 8 7 BPM Atrial Rate : 87 BPM P-R Interval : 150 ms QRS Duration : 80 ms Q-T Interval : 346 ms QTC Calculation(Bazett) : 416 ms Calculated P [place] : 27 degrees Calculated R [place] : 34 degrees Calculated T [place] : 43 degrees NORMAL SINUS RHYTHM NORMAL ECG Confirmed by MD RAULITO, PhD, SAHIL ([id number]) on 06/28/2022 2:12:17 PM NAME : REGLA PRAJAPATI PID : [id number] : 1970 Gender : Female Race : ORD : [id number] Procedure Date : Jun 22 2022 16:26:52 Edit Date : Jun 28 2022 14:12:17 Diagnosis: NORMAL SINUS RHYTHM NORMAL ECG Confirmed by MD RAULITO, PhD, SAHIL ([id number]) on 06/28/2022 2:12:17 PM Test Reason : Location : 314 : J14 J1-4 Overread By : MD RAULITO, PhD,SAHIL Edited By : MD RAULITO, PhD,SAHIL Referred By : TING CAMILO Acquired by : SCOTT WHITE [facility] URINALYSIS, REFLEX MICROSCOP ICon 06-22-2022 Bilirubin Ql (U) Negative Normal Negative [facility] Comment on above: Order Comment: Speci men Type: URINE SPECIMENOrdering Facility: [facility] Address: [address] [place] [address] Performed By: #### L [id number] ####[facility] LABCLIA [id number] [address] [place] Clarity (Unsp spec) Clear Normal Clear [facility] Comment on above: Order Comment: Speci men Type: URINE SPECIMENOrdering Facility: [facility] Address: [address] [place] [address] Performed By: #### L [id number] ####[facility] LABCLIA [id number] [place] [address] [place] Color (U) Colorless Normal Yellow [facility] Comment on above: Order Comment: Speci men Type: URINE SPECIMENOrdering Facility: [facility] Address: [address] [place] [address] Performed By: #### L [id number] ####[facility] LABCLIA [id number] [place] [address] [place] Glucose Test strip (U) [Mass/Vol] Negative Normal Trace, Negative [facility] Comment on above: Order Comment: Speci men Type: URINE SPECIMENOrdering Facility: [facility] Address: [address] Performed By: #### L [id number] ####[facility] LABCLIA [id number] [place] [address] [place] Hemoglobin Ql (U) Negative Normal Negative, Trace [facility] Comment on above: Order Comment: Speci men Type: URINE SPECIMENOrdering Facility: [facility] Address: [address] Performed By: #### L [id number] ####[facility] LABCLIA [id number] [place] [address] [place] Ketones Ql (U) Negative Normal Negative, Trace [facility] Comment on above: Order Comment: Speci men Type: URINE SPECIMENOrdering Facility: [facility] Address: [address] Performed By: #### L [id number] ####[facility] LABCLIA [id number] [place] [address] [place] Leukocyte esterase Test strip Ql (U) Negative Normal Negative, 25 Keith/uL [facility] Comment on above: Order Comment: Speci men Type: URINE SPECIMENOrdering Facility: [facility] Address: [address] [place], [place] [address] Performed By: #### L [id number] ####[facility] LABCLIA [id number] [place] [address] [place] Nitrite Ql (U) Negative Normal Negative [facility] Comment on above: Order Comment: Speci men Type: URINE SPECIMENOrdering Facility: [facility] Address: [address] [place], [place] [address] Performed By: #### L [id number] ####[facility] LABCLIA [id number] [address] [address] [place] pH (U) 5.5 [pH] Normal 5.0-8.0 [facility] Comment on above: Order Comment: Speci men Type: URINE SPECIMENOrdering Facility: [facility] Address: [address] [place] [address] Performed By: #### L [id number] ####[facility] LABIA [id number] [place] [address] [place] Protein (U) [Mass/Vol] Negative Normal Trace , Negative [facility] Comment on above: Order Comment: Speci men Type: URINE SPECIMENOrdering Facility: [facility] Address: [address] [place] [address] Performed By: #### L [id number] ####[facility] LABIA [id number] [place] [address] [place] Specific gravity (U) [Rel density] 1.005 Normal 1.005-1.030 [facility] Comment on above: Order Comment: Speci men Type: URINE SPECIMENOrdering Facility: [facility] Address: [address] [place] [address] Performed By: #### L [id number] ####[facility] LABIA [id number] [place] [address] [place] Urobilinogen Ql (U) Negative Normal Negative [facility] Comment on above: Order Comment: Speci men Type: URINE SPECIMENOrdering Facility: [facility] Address: [address] [place] [address] Performed By: #### L [id number] ####[facility] LABIA [id number] [place] [address] [place] Bilirubin Ql (U) Negative Negative [facility] Clarity (Unsp spec) Clear Clear [facility] Color (U) Colorless Yellow [facility] Glucose Test strip (U) [Mass/Vol] Negative Trace, Negative [facility] Hemoglobin Ql (U) Negative Negative, Trace [facility] Ketones Ql (U) Negative Negative, Trace [facility] Leukocyte esterase Test strip Ql (U) Negative Negative, 25 Keith/uL [facility] Nitrite Ql (U) Negative Negative [facility] pH (U) 5.5 [pH] 5.0 - 8.0 [facility] Protein (U) [Mass/Vol] Negative Trace , Negative [facility] Specific gravity (U) [Rel density] 1.005 1.005 - 1.030 [facility] Urobilinogen Ql (U) Negative Negative [facility] CATECHOLAMINES FRACTIONATED, URINE FREEon 06-01-2022 CATECHOLAMINES INTERPRETATION See Note Normal [facility] Comment on above: Order Comment: Speci men Type: TIMED URINE SPECIMENOrdering Facility: [facility] Address: [address] [id number] Result Comment: TEST INFORMATION: Catecholamines Fractionated, Urine [...] reference intervals for this test in the [facility] Test Directory (trend.ly). This test was developed and its performance characteristics determined by [facility]. It has not been cleared or approved by the US Food and Drug Administration. This test was performed in a CLIA certified laboratory and is intended for clinical purposes. Performed By: #### U RCAT2 ####globalscholar.comIA [id number] [place] [address] CREATININE UR, PER 24H 931 mg/d Normal 700-1600 [facility] Comment on above: Order Comment: Speci men Type: TIMED URINE SPECIMENOrdering Facility: [facility] Address: [address] [place] [address] Result Comment: Perf ormed by [facility], [address] [place], [place] [id number] [email or web address], Alfonso Hernadez MD, PHD, Lab. Director Performed By: #### U RCAT2 ####MOlinkedüIA [id number] [place] [address] CREATININE UR, PER VOLUME 49 mg/dL Normal [facility] Comment on above: Order Comment: Speci men Type: TIMED URINE SPECIMENOrdering Facility: [facility] Address: [address] [place] [address] Performed By: #### U RCAT2 ####[facility]ORATORIESCLIA [id number] [place] [address] DOPAMINE, UR 24HR 118 ug/d Normal 71-485 [facility] Comment on above: Order Comment: Speci men Type: TIMED URINE SPECIMENOrdering Facility: [facility] Address: [address] [place] [address] Result Comment: REFE RENCE INTERVAL: Dopamine, Urine - ug/d Access complete set of age- and/or gender-specific reference intervals for this test in the [facility] Test Directory (trend.ly). Performed By: #### U RCAT2 ####[facility] LABORATORIESCLIA [id number] [place] [address] DOPAMINE, UR PER VOL 62 ug/L Normal [facility] Comment on above: Order Comment: Speci men Type: TIMED URINE SPECIMENOrdering Facility: [facility] Address: [address] [place] [address] Performed By: #### U RCAT2 ####[facility] LABORATORIESCLIA [id number] [place] [address] DOPAMINE, UR RATIO TO REBAR FABRICATOR 127 ug/g REBAR FABRICATOR Normal 0-250 [facility] Comment on above: Order Comment: Speci men Type: TIMED URINE SPECIMENOrdering Facility: [facility] Address: [address] [address] Performed By: #### U RCAT2 ####[facility] LABORATORIESCLIA [id number] [place] [address] EPINEPHRINE, UR 24HR 4 ug/d Normal 1-14 [facility] Comment on above: Order Comment: Speci men Type: TIMED URINE SPECIMENOrdering Facility: [facility] Address: [address] [place] [address] Result Comment: REFE RENCE INTERVAL: Epinephrine, Urine - ug/d Access complete set of age- and/or gender-specific reference intervals for this test in the [facility] Test Directory (trend.ly). Performed By: #### U RCAT2 ####[facility] LABORATORIESCLIA [id number] [place] [address] EPINEPHRINE, UR PER VOL 2 ug/L Normal C [facility] Comment on above: Order Comment: Speci men Type: TIMED URINE SPECIMENOrdering Facility: [facility] Address: [address] [place] [address] Performed By: #### U RCAT2 ####[facility] LABORATORIESCLIA [id number] [place] [address] EPINEPHRINE, UR RATIO TO REBAR FABRICATOR 4 ug/g REBAR FABRICATOR Normal 0-20 [facility] Comment on above: Order Comment: Speci men Type: TIMED URINE SPECIMENOrdering Facility: [facility] Address: [address] [place] [address] Performed By: #### U RCAT2 ####[facility] LABORATORIESCLIA [id number] [place] [address] HOURS COLLECTED 24 hr Normal [facility] Comment on above: Order Comment: Speci men Type: TIMED URINE SPECIMENOrdering Facility: [facility] Address: [address] [place] [address] Result Comment: Per 24h calculations are provided to aid interpretation for collections with a duration of 24 hours and an average daily urine volume. For specimens with notable deviations in collection time or volume, ratios of analytes to a corresponding urine creatinine concentration may assist in result interpretation. Performed By: #### U RCAT2 ####[facility] Tracked.comCLIA [id number] [place] [address] NOREPINEPHRINE, UR 24HR 32 ug/d Normal 14-120 C [facility] Comment on above: Order Comment: Speci men Type: TIMED URINE SPECIMENOrdering Facility: [facility] Address: [address] [place] [address] Result Comment: REFE RENCE INTERVAL: Norepinephrine, Urine - ug/d Access complete set of age- and/or gender-specific reference intervals for this test in the [facility] Test [facility] (trend.ly). Performed By: #### U RCAT2 ####[facility] LABORATORIESCLIA [id number] [place] [address] NOREPINEPHRINE, UR PER VOL 17 ug/L Normal [facility] Comment on above: Order Comment: Speci men Type: TIMED URINE SPECIMENOrdering Facility: [facility] Address: [address] [place] [address] Performed By: #### U RCAT2 ####[facility] LABORATORIESCLIA [id number] [place] [address] NOREPINEPHRINE, UR RATIO TO REBAR FABRICATOR 35 ug/g REBAR FABRICATOR Normal 0-45 [facility] Comment on above: Order Comment: Speci men Type: TIMED URINE SPECIMENOrdering Facility: [facility] Address: [address] [place] [address] Performed By: #### U RCAT2 ####[facility] LABORATORIESCLIA [id number] [place] [address] TOTAL VOLUME 1900 mL Normal [facility] Comment on above: Order Comment: Speci men Type: TIMED URINE SPECIMENOrdering Facility: [facility] Address: [address] [place] [address] Performed By: #### U RCAT2 ####[facility] LABORATORIESCLIA [id number] [place] [address] CREATININE 24 HR URon 2022 Creatinine (24H U) [Mass/Time] 0.910 g/24 hr Normal 0.800-1.800 [facility] Comment on above: Order Comment: Speci men Type: TIMED URINE SPECIMENOrdering Facility: [facility] Address: [address] [place] [address] Performed By: #### U CRD ####[facility] LABCLIA [id number] [facility] [id number] [place] [address] [place] [facility] LABORATORYCLIA [id number] [place] [address] [place] PERIOD (HRS) 24 hr Normal [facility] Comment on above: Order Comment: Speci men Type: TIMED URINE SPECIMENOrdering Facility: [facility] Address: [address] [place] [address] Performed By: #### U CRD ####[facility] LABCLIA [id number] [address] LABORATORYCLIA [id number] [place] [address] [facility] Performed By: #### U METAN ####[facility] LABCLIA [id number] [place] [id number] [facility] LABORATORYCLIA [id number] [place] [address] [place] VOLUME (ML) 1900 mL Normal [facility] Comment on above: Order Comment: Speci men Type: TIMED URINE SPECIMENOrdering Facility: [facility] Address: [address] [place] [address] Performed By: #### U CRD ####[facility] LABCLIA [id number] [address] LABORATORYCLIA [id number] [place] [address] [place] Performed By: #### U METAN ####[facility] LABCLIA [id number] [address] LABORATORYCLIA [id number] [place] [address] [place] METANEPHRINES 24H URon 06-01 Metanephrines (24H U) [Mass/Time] 338 ug/24 hr Normal 140-785 [facility] Comment on above: Order Comment: Speci men Type: TIMED URINE SPECIMENOrdering Facility: [facility] Address: [address] [place] [address] Result Comment: Urin e Metanephrine test performed by Liquid Chromatography Tandem Mass Spectrometry (LC-MS/MS). Results obtained with different methods or kits cannot be used interchangeably. This test was developed and its performance characteristics determined by [facility]'s [facility] [place] [facility] It has not been cleared or approved by the FDA. -[facility] is regulated under CLIA as qualified to perform high-complexity testing. This test is used for clinical purposes. It should not be regarded as investigational or for research. Performed By: #### U METAN ####[facility] LABCLIA [id number] [address] LABORATORYCLIA [id number] [address] [place] NORMETANEPHRINES, UR 264 ug/24 hr Normal 88-444 [facility] Comment on above: Order Comment: Speci men Type: TIMED URINE SPECIMENOrdering Facility: [facility] Address: [address] [place] [address] Performed By: #### U METAN ####[facility] LABIA [id number] [address] LABORATORYIA [id number] [address] [place] Aldost SerPl-mCncon 05-18-19 23 Aldosterone [Mass/Vol] <3.0 Normal 0.0-<35.4 [facility] Comment on above: Order Comment: Speci men Type: BLOOD SPECIMENOrdering Facility: [facility] Address: [address] [place] [address] Result Comment: The reference interval for serum/plasma [...] 15 ng/dL. Performed By: #### 1 763-2 ####[facility] LABCLIA [id number] [place] [address] [place]#### RENIND ####[facility] LABCLIA [id number] [place] [id number] [place] [facility] LABORATORYCLIA [id number] [facility] [place] [address] [place] CATECHOLAMINES FRAon 023 CATECHOLAMINE INTERPRETATION PLASMA See Note Normal [facility] Comment on above: Order Comment: Speci men Type: BLOOD SPECIMENOrdering Facility: [facility] Address: [address] [address] Result Comment: INTE RPRETIVE INFORMATION: Catecholamines Panel, [...] developed and its performance characteristics determined by [facility]. It has not been cleared or approved by the US Food and Drug Administration. This test was performed in a CLIA certified laboratory and is intended for clinical purposes. Performed By: [facility] [address] [place] [address] [facility] Wellness: Alfonso Hernadez MD, PhD Performed By: #### P LCAT ####[facility] LABORATORIESCLIA [id number] [place] [address] DOPAMINE 30 pg/mL High 0-20 [facility] Comment on above: Order Comment: Speci men Type: BLOOD SPECIMENOrdering Facility: [facility] Address: [address] [address] Performed By: #### P LCAT ####[facility] LABORATORIESCLIA [id number] [place] [address] EPINEPHRINE (P) 22 pg/mL Normal 10-200 [facility] Comment on above: Order Comment: Speci men Type: BLOOD SPECIMENOrdering Facility: [facility] Address: [address] [address] Performed By: #### P LCAT ####[facility] LABORATORIESCLIA [id number] [place] [address] NOREPINEPHRINE 590 pg/mL High 80-520 [facility] Comment on above: Order Comment: Speci men Type: BLOOD SPECIMENOrdering Facility: [facility] Address: [address] [address] Performed By: #### P LCAT ####[facility] LABORATORIESCLIA [id number] [place] [address] DIRECT RENIN PLASMAon 2022 DIRECT RENIN 137.2 pg/mL High 3.6-81.6 [facility] Comment on above: Order Comment: Speci men Type: BLOOD SPECIMENOrdering Facility: [facility] Address: [address] [place] [address] Result Comment: A ra michaelle of aldosterone [...] 2.5-45.1 pg/mL Performed By: #### 1 763-2 ####[facility] LABCLIA [id number] [place] [address] [place]#### RENIND ####[facility] LABCLIA [id number] [address] STATES OF [facility] LABORATORYCLIA [id number] [address] [place] PATIENT UPRIGHT OR SUPINE Supine Normal [facility] Comment on above: Order Comment: Speci men Type: BLOOD SPECIMENOrdering Facility: [facility] Address: [address] Performed By: #### 1 763-2 ####[facility] LABCLIA [id number] [place] [address] [place]#### RENIND ####[facility] LABCLIA [id number] [address] STATES OF [facility] LABORATORYCLIA [id number] [facility] [address] [place] METANEPHRINES, FREE PLASMAon 05-18-2022 METANEPHRINE, PLASMA 33 pg/mL Normal 12-67 [facility] Comment on above: Order Comment: Speci men Type: BLOOD SPECIMENOrdering Facility: [facility] Address: [address] [place] [address] Result Comment: Refe rence Ranges: Hypertensive adult > or = 18 yrs old: 12-72 pg/mL Normotensive adult > or = 18 yrs old: 12-67 pg/mL Normotensive children < 18 yrs old: 10-95 pg/mL Performed By: #### P METAN ####[facility] LABIA [id number] [address] [place] NORMETANEPHRINE, PLASMA 134 pg/mL High 18-101 [facility] Comment on above: Order Comment: Speci men Type: BLOOD SPECIMENOrdering Facility: [facility] Address: [address] [place] [address] Result Comment: Refe rence Ranges: Hypertensive adult > or = 18 yrs old: 24-145 pg/mL Normotensive adult > or = 18 yrs old: 18-101 pg/mL Normotensive children < 18 yrs old: 22-83 pg/mL Methyldopa may cause false elevation of normetanephrine levels in this assay. If patient is on methyldopa, interpret results with caution. Performed By: #### P METAN ####[facility] LABCLIA [id number] [place] [address] [place] Renal function 2000 panelon 05-18-2022 Albumin [Mass/Vol] 4.2 g/dL Normal 3.9-4.9 [facility] Comment on above: Order Comment: Speci men Type: BLOOD SPECIMENOrdering Facility: [facility] Address: [address] Performed By: #### 2 4362-6 ####[facility] LABCLIA [id number] [place] [address] [place] Anion gap [Moles/Vol] 12 mmol/L Normal 9-18 [facility] Comment on above: Order Comment: Speci men Type: BLOOD SPECIMENOrdering Facility: [facility] Address: [address] Performed By: #### 2 4362-6 ####[facility] LABCLIA [id number] [place] [address] [place] Calcium [Mass/Vol] 9.4 mg/dL Normal 8.5-10.2 [facility] Comment on above: Order Comment: Speci men Type: BLOOD SPECIMENOrdering Facility: [facility] Address: [address] Performed By: #### 2 4362-6 ####[facility] LABCLIA [id number] [place] [address] [place] Chloride [Moles/Vol] 103 mmol/L Normal 97-105 [facility] Comment on above: Order Comment: Speci men Type: BLOOD SPECIMENOrdering Facility: [facility] Address: [address] [id number] Performed By: #### 2 4362-6 ####[facility] LABCLIA [id number] [place] [address] [place] CO2 [Moles/Vol] 24 mmol/L Normal 22-30 [facility] Comment on above: Order Comment: Speci men Type: BLOOD SPECIMENOrdering Facility: [facility] Address: [address] Performed By: #### 2 4362-6 ####[facility] LABIA [id number] [place] [address] [place] Creatinine [Mass/Vol] 0.98 mg/dL High 0.58-0.96 [facility] Comment on above: Order Comment: Speci men Type: BLOOD SPECIMENOrdering Facility: [facility] Address: [address] Performed By: #### 2 4362-6 ####[facility] LABIA [id number] [place] [address] [place] ESTIMATED GLOMERULAR FILTRATION RATE 71 mL/min/1.73m??? Normal >=60 [facility] Comment on above: Order Comment: Eyali men Type: BLOOD SPECIMENOrdering Facility: [facility] Address: [address] [address] Result Comment: Liz mated Glomerular Filtration Rate [...] actual GFR. Performed By: #### 2 4362-6 ####[facility] LABIA [id number] [place] [address] [place] Glucose [Mass/Vol] 106 mg/dL High 74-99 [facility] Comment on above: Order Comment: Speci men Type: BLOOD SPECIMENOrdering Facility: [facility] Address: [address] Result Comment: The [place] Diabetes Association (ADA) provides guidance for cutoff [...] Standards of Medical Care in Diabetes 2016, [place] Diabetes Association. Diabetes Care. 2016.39(Suppl 1). Performed By: #### 2 4362-6 ####[facility] LABCLIA [id number] [place] [address] [place] Phosphate [Mass/Vol] 3.6 mg/dL Normal 2.7-4.8 [facility] Comment on above: Order Comment: Speci men Type: BLOOD SPECIMENOrdering Facility: [facility] Address: [address] [place] [address] Performed By: #### 2 4362-6 ####[facility] LABIA [id number] [place] [address] [place] Potassium [Moles/Vol] 3.8 mmol/L Normal 3.7-5.1 [facility] Comment on above: Order Comment: Eyali men Type: BLOOD SPECIMENOrdering Facility: [facility] Address: [address] [place] [address] Performed By: #### 2 4362-6 ####[facility] LABIA [id number] [place] [address] [place] Sodium [Moles/Vol] 139 mmol/L Normal 136-144 [facility] Comment on above: Order Comment: Speci men Type: BLOOD SPECIMENOrdering Facility: [facility] Address: [address] [place], [place] [address] Performed By: #### 2 4362-6 ####[facility] LABIA [id number] [place] [address] [place] Urea nitrogen [Mass/Vol] 15 mg/dL Normal 7-21 [facility] Comment on above: Order Comment: Speci men Type: BLOOD SPECIMENOrdering Facility: [facility] Address: [address] [address] Performed By: #### 2 4362-6 ####[facility] LABCLIA [id number] [place] [address] [place] URINALYSIS, REFLEX MICROSCOP ICon 05-18-2022 Bilirubin Ql (U) Negative Normal Negative [facility] Comment on above: Order Comment: Speci men Type: URINE SPECIMEN [facility] Address: [address] Performed By: #### L [id number] #### [facility] CLIA [id number] [address] [place] [address] [place] Clarity (Unsp spec) Clear Normal Clear [facility] Comment on above: Order Comment: Speci men Type: URINE SPECIMEN [facility] Address: [address] [place], [place] [address] Performed By: #### L [id number] #### [facility] CLIA [id number] [place] [address] Color (U) Light Yellow Normal Yellow [facility] Comment on above: Order Comment: Speci men Type: URINE SPECIMEN [facility] Address: [address] [place], [place] [address] Performed By: #### L [id number] #### [facility] CLIA [id number] [address] [place] [address] [place] Glucose Test strip (U) [Mass/Vol] Negative Normal Trace, Negative [facility] Comment on above: Order Comment: Speci men Type: URINE SPECIMEN Ordering Facility: [facility] Address: [address] Performed By: #### L [id number] #### [facility] CLIA [id number] [address] [place] [address] [place] Hemoglobin Ql (U) Negative Normal Negative, Trace [facility] Comment on above: Order Comment: Speci men Type: URINE SPECIMEN Ordering Facility: [facility] Address: [address] Performed By: #### L [id number] #### [facility] CLIA [id number] [address] [place] [address] [place] Ketones Ql (U) Negative Normal Trace, Negative [facility] Comment on above: Order Comment: Speci men Type: URINE SPECIMEN Ordering Facility: [facility] Address: [address] [address] Performed By: #### L [id number] #### [facility] CLIA [id number] [address] [place] [address] [place] Leukocyte esterase Test strip Ql (U) Negative Normal Negative, 25 Keith/mL [facility] Comment on above: Order Comment: Speci men Type: URINE SPECIMEN Ordering Facility: [facility] Address: [address] Performed By: #### L [id number] #### [facility] CLIA [id number] [address] [place] [address] [place] Nitrite Ql (U) Negative Normal Negative [facility] Comment on above: Order Comment: Speci men Type: URINE SPECIMEN Ordering Facility: [facility] Address: [address] [place], [place] [address] Performed By: #### L [id number] #### [facility] CLIA [id number] [address] [place] [address] [place] pH (U) 6.0 [pH] Normal 5.0-8.0 [facility] Comment on above: Order Comment: Speci men Type: URINE SPECIMEN Ordering Facility: [facility] Address: [address] Performed By: #### L [id number] #### [facility] CLIA [id number] [address] [place] [address] [place] Protein (U) [Mass/Vol] Negative Normal Trace , Negative [facility] Comment on above: Order Comment: Speci men Type: URINE SPECIMEN Ordering Facility: [facility] Address: [address] [place] [address] Performed By: #### L [id number] #### [facility] CLIA [id number] [facility] [place] [address] [place] Specific gravity (U) [Rel density] 1.011 Normal 1.005-1.030 [facility] Comment on above: Order Comment: Speci men Type: URINE SPECIMEN Ordering Facility: [facility] Address: [address] [place] [address] Performed By: #### L [id number] #### [facility] CLIA [id number] [facility] [address] [place] Urobilinogen Ql (U) Negative Normal Negative [facility] Comment on above: Order Comment: Speci men Type: URINE SPECIMEN Ordering Facility: [facility] Address: [address] [place] [address] Performed By: #### L [id number] #### [facility] CLIA [id number] [facility] [place] [address] [place] Basophils Auto (Bld) [#/Vol] Ordered By: Terrell Mc on 05-11-2022 Basophils (Bld) [#/Vol] 0.0 10*3/uL 0.0-0.2 [facility] Basophils/100 WBC Auto (Bld) Ordered By: Terrell Mc on 05-11-2022 Basophils/100 WBC (Bld) 0.5 % . [facility] Body fluid albumin measureme nt (mass/volume)Ordered By: Terrell Mc on 05-11-2022 Albumin (Body fld) [Mass/Vol] 3.8 g/dL 3.2-5.5 [facility] Creatinine and Glomerular fi ltration rate.predicted panel (S/P/Bld)Ordered By: Terrell Mc on 05-11-2022 Creatinine [Mass/Vol] 1.11 mg/dL 0.44-1.03 [facility] Eosinophils Auto (Bld) [#/Vo l]Ordered By: Terrell Mc on 05-11-2022 Eosinophils (Bld) [#/Vol] 0.1 10*3/uL 0.0-0.45 [facility] Eosinophils/100 WBC Auto (Bl d)Ordered By: Terrell Mc on 05-11-2022 Eosinophils/100 WBC (Bld) 0.7 % . [facility] Erythrocyte distribution wid th Auto (RBC) [Ratio]Ordered By: Terrell Mc on 05-11-2022 Erythrocyte distribution width (RBC) [Ratio] 13.5 % 11.9-15.3 [facility] Estimated glomerular filtrat ion rate (GFR) non- AmericanOrdered By: Terrell Mc on 05-11-2022 GFR/1.73 sq M.predicted among non-blacks MDRD (S/P/Bld) [Vol rate/Area] 52 mL/Min [facility] Globulin Calc (S) [Mass/Vol] Ordered By: Terrell Mc on 05-11-2022 Globulin (S) [Mass/Vol] 2.5 g/dL [facility] Hematocrit Auto (Bld) [Volum e fraction]Ordered By: Terrell Mc on 05-11-2022 Hematocrit (Bld) [Volume fraction] 37.4 % 34.0-46.4 [facility] Hemoglobin [Mass/volume] in BloodOrdered By: Terrell Mc on 05-11-2022 Hemoglobin (Bld) [Mass/Vol] 12.3 g/dL 11.8-15.4 [facility] Leukocytes [#/volume] correc flo for nucleated erythrocytes in Blood by Automated counOrdered By: Terrell Mc on 05-11-2022 WBC corrected for nucl RBC Auto (Bld) [#/Vol] 7.7 10*3/uL 3.8-11.6 [facility] Lymphocytes Auto (Bld) [#/Vo l]Ordered By: Terrell Mc on 05-11-2022 Lymphocytes (Bld) [#/Vol] 3.0 10*3/uL 1.00-4.8 [facility] Lymphocytes/100 WBC Auto (Bl d)Ordered By: Terrell Mc on 05-11-2022 Lymphocytes/100 WBC (Bld) 39.2 % . [facility] MCH Auto (RBC) [Entitic mass ]Ordered By: Terrell Mc on 05-11-2022 MCH (RBC) [Entitic mass] 29.6 pg 24.7-34.3 [facility] MCHC Auto (RBC) [Mass/Vol]Or dered By: Terrell Mc on 05-11-2022 MCHC (RBC) [Mass/Vol] 32.8 g/dL 32.0-35.0 [facility] MCV Auto (RBC) [Entitic vol] Ordered By: Terrell Mc on 05-11-2022 MCV (RBC) [Entitic vol] 90.3 fL 80-100 [facility] Monocyte distribution width [Entitic volume] in Blood by AutomatedOrdered By: Terrell Mc on 05-11-2022 Monocyte distribution width Auto (Bld) [Entitic vol] 17.43 % 0.00-20.00 [facility] Monocytes Auto (Bld) [#/Vol] Ordered By: Terrell Mc on 05-11-2022 Monocytes (Bld) [#/Vol] 0.8 10*3/uL 0.0-0.8 [facility] Monocytes/100 WBC Auto (Bld) Ordered By: Terrell Mc on 05-11-2022 Monocytes/100 WBC (Bld) 10.4 % . [facility] Neutrophils Auto (Bld) [#/Vo l]Ordered By: Terrell Mc on 05-11-2022 Neutrophils (Bld) [#/Vol] 3.8 10*3/uL 1.8-7.7 [facility] Neutrophils/100 WBC Auto (Bl d)Ordered By: Terrell Mc on 05-11-2022 Neutrophils/100 WBC (Bld) 49.2 % . [facility] No Panel InformationOrdered By: Terrell Mc on 05-11-2022 Estimated GFR () > 60 mL/Min [facility] Comment on above: GFR estimated refere nce range: According to KDOQI guidelines, <60 ml/min/1.73m2 is sufficient to diagnose a patient with chronic kidney disease. Pharmacy Creatinine Clearance (Chem 54.45 [facility] Nucleated erythrocytes [Pres ence] in Blood by Automated countOrdered By: Terrell Mc on 05-11-2022 Nucleated RBC Auto Ql (Bld) 0.1 /100{WBC} 0-0.5 [facility] Platelet mean volume Auto (B ld) [Entitic vol]Ordered By: Terrell Mc on 05-11-2022 Platelet mean volume (Bld) [Entitic vol] 7.0 fL 6.3-10.7 [facility] Platelets Auto (Bld) [#/Vol] Ordered By: Terrell Mc on 05-11-2022 Platelets (Bld) [#/Vol] 332 10*3/uL 150-450 [facility] Protein [Mass/volume] in Ser um or PlasmaOrdered By: Terrell Mc on 05-11-2022 Protein [Mass/Vol] 6.3 g/dL 6.1-7.9 [facility] RBC Auto (Bld) [#/Vol]Ordere d By: Terrell Mc on 05-11-2022 RBC (Bld) [#/Vol] 4.14 10*6/uL 3.60-5.00 [facility] Serum or plasma alanine mejía otransferase measurement without P-5'-P (enzymatic activiOrdered By: Terrell Mc on 05-11-2022 ALT No additional P-5'-P [Catalytic activity/Vol] 30 U/L 10-60 [facility] Serum or plasma albumin/glob ulin mass ratioOrdered By: Terrell Mc on 05-11-2022 Albumin/Globulin [Mass ratio] 1.5 {ratio} [facility] Serum or plasma alkaline annabelle sphatase measurement (enzymatic activity/volume)Ordered By: Terrell Mc on 05-11-2022 ALP [Catalytic activity/Vol] 90 U/L 32-92 [facility] Serum or plasma anion gap de terminationOrdered By: Terrell Mc on 05-11-2022 Anion gap [Moles/Vol] 12.6 mmol/L 6.0-15.0 [facility] Serum or plasma aspartate am inotransferase measurement (enzymatic activity/volume)Ordered By: Terrell Mc on 05-11-2022 AST [Catalytic activity/Vol] 27 U/L 10-42 [facility] Serum or plasma calcium laureen urement (mass/volume)Ordered By: Terrell Mc on 05-11-2022 Calcium [Mass/Vol] 9.3 mg/dL 8.2-10.2 [facility] Serum or plasma chloride silverio surement (moles/volume)Ordered By: Terrell Mc on 05-11-2022 Chloride [Moles/Vol] 105 mmol/L 95-114 [facility] Serum or plasma glucose laureen urement (mass/volume)Ordered By: Terrell Mc on 05-11-2022 Glucose [Mass/Vol] 74 mg/dL 70-100 [facility] Comment on above: ADA recommended refe rence rangeRandom Glucose Reference Range is dependent on time and content of last meal. Glucose of more than 200 mg/dL in a nonstressed, ambulatory subject supports the diagnosis of Diabetes Mellitus. Serum or plasma potassium me asurement (moles/volume)Ordered By: Terrell Mc on 05-11-2022 Potassium [Moles/Vol] 3.5 mmol/L 3.5-5.1 [facility] Serum or plasma sodium measu rement (moles/volume)Ordered By: Terrell Mc on 05-11-2022 Sodium [Moles/Vol] 140 mmol/L 136-146 [facility] Serum or plasma total biliru bin measurement (mass/volume)Ordered By: Terrell Mc on 05-11-2022 Bilirubin [Mass/Vol] 0.4 mg/dL 0.3-1.2 [facility] Serum or plasma total carbon dioxide measurement (moles/volume)Ordered By: Terrell Mc on 05-11-2022 CO2 [Moles/Vol] 25.9 mmol/L 22.0-30.0 [facility] Serum or plasma urea nitroge n measurement (mass/volume)Ordered By: Terrell Mc on 05-11-2022 Urea nitrogen [Mass/Vol] 14 mg/dL 9-23 [facility] Troponin I.cardiac [Mass/vol ume] in Serum or Plasma by High sensitivity methodOrdered By: Terrell Mc on 05-11-2022 Troponin I.cardiac High sensitivity method [Mass/Vol] 4 pg/mL 0-15 [facility] WBC Auto (Bld) [#/Vol]Ordere d By: Terrell Mc on 05-11-2022 WBC (Bld) [#/Vol] 7.7 10*3/uL 3.8-11.6 [facility] CNOVon 05-04-2022 CNOV Office Visit (VASSAV ) REGLA PRAJAPATI ([id number]) 1970 F Date Time Provider Department 05/04/22 12:15 PM FERMIN BEGUM During your visit today, we recorded the following information about you: Pulse Blood pressure 84/minute 140/84 Fermin Begum MD 05/04/2022 12:21 PM Signed [facility] [place] DEPARTMENT OF VASCULAR SURGERY OUTPATIENT VISIT DATE May 04, 2022 OUTPATIENT VISIT TYPE ESTABLISHED SERVICE DATE: 05/04/2022 SERVICE TIME: 11:54 AM PRIMARY CARE PHYSICIAN: Renetta Ridley, MAGNAFLUX OPERATOR, MAGNAFLUX OPERATOR HISTORY OF PRESENT ILLNESS: Ms. Prajapati is [...] valvular abnormalities 03/04/2019 patient had procedure at [facility] in [place] for critical right common iliac artery stenosis [...] Extremities: thenar (more content not included)... Normal [facility] PVR ANK/HERNANDEZ/TOE [facility] on 05-03-2022 PVR ANK/HERNANDEZ/TOE [facility] Non-Invasive Vascular Laboratory [facility] Lower Extremity Arterial Physiology Study [...] Normal at rest. Technologist: Prieto Malik RVT, [facility] Ordering physician: FERMIN BEGUM Interpreting physician: Joel Bojorquez MD Final [facility] [employer] [facility] : [id number] See Link below for Image Normal [facility] US ABD AORTA COMPLETE VAS LA Bon 05-03-2022 US ABD AORTA COMPLETE [facility] Non-Invasive Vascular Laboratory [facility] Abdominal Aorta Bilateral/Complete Date of [...] Interpreting physician: Joel Bojorquez MD [facility] [employer] [facility] : [id number] sSISUID See Link below for Image Normal [facility] US CAROTID ARTERIES [facility] 05-03-2022 US CAROTID ARTERIES [facility] Non-Invasive Vascular Laboratory [facility] Carotid Duplex Bilateral/Complete Date of [...] flow noted. Subclavian artery: 50-99% stenosis. Technologist: rPieto Malik RVT, RDMS Ordering physician: FERMIN BEGUM Interpreting physician: Jole Bojorquez MD [facility] [employer] [facility] : [id number] sSISUID See Link below for Image Normal [facility] RENAL ARTERY [facility] n 05-03-2022 US RENAL ARTERY [facility] Non-Invasive Vascular Laboratory [facility] Renal or Mesenteric Duplex Bilateral/Complete [...] hemodynamically significant stenosis. 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 Normal [facility] CT ABD/PELV W CONon 03-23-20 CT ABD/PELV [...] FIOR TORRES Date: 2022-03-23 06:43 Normal [facility] AMYLASEon 03-22-2022 Amylase [Catalytic activity/Vol] 59 U/L Normal 25-115 [facility] Comment on above: Performed By: #### L IPA, CMP, AARON, TSH, LIPID, FT3 #### [facility] [address] [address] [address] Judah Peñaloza CBC AUTO DIFFon 03-22-2022 BASO # 0.0 103/ul Normal 0.0-0.[address] [facility] Comment on above: Performed By: #### C MP, AARON, LIPA #### [facility] [address] [place] [address] Dr. Judah Peñaloza Basophils/100 WBC (Bld) 0.4 % Normal 0.2-2.0 [facility] Comment on above: Performed By: #### C MP AARON, LIPA #### [facility] [address] [place] [address] Dr. Judah Peñaloza EO # 0.1 103/ul Normal 0.0-0.[address] [facility] Comment on above: Performed By: #### C MP AARON, LIPA #### [facility] [address] [place] [address] Dr. Judah Peñaloza Eosinophils/100 WBC (Bld) 0.7 % Critically low 0.9-7.[address] [facility] Comment on above: Performed By: #### C AARON ZHU, LIPA #### [facility] [address] [place] [address] Dr. Judah Peñaloza Erythrocyte distribution width (RBC) [Ratio] 13.1 % Normal 11.0-15.[address] [facility] Comment on above: Performed By: #### C AARON ZHU LIPA #### [facility] [address] [place] [address] Dr. Judah Peñaloza Hematocrit (Bld) [Volume fraction] 38.1 % Normal 36.0-48.[address] [facility] Comment on above: Performed By: #### C AARON ZHU LIPA #### [facility] [address] [place] [address] Dr. Judah Peñaloza Hemoglobin (Bld) [Mass/Vol] 12.5 g/dL Normal 12.0-16.[address] [facility] Comment on above: Performed By: #### C AARON ZHU, LIPA #### [facility] [address] [place] [address] Dr. Judah Peñaloza IG # 0.01 10e3/ul Normal 0.00-0.[address] [facility] Comment on above: Performed By: #### C AARON ZHU, LIPA #### [facility] [address] [place] [address] Dr. Judah Peñaloza IG % 0.1 % Normal 0.0-0.[address] [facility] Comment on above: Performed By: #### C AARON ZHU LIPA #### [facility] [address] [place] [address] Dr. Judah Peñaloza LYMPH # 2.6 103/ul Normal 1.2-3.[address] [facility] Comment on above: Performed By: #### C AARON ZHU LIPA #### [facility] [address] [place] [address] Dr. Judah Peñaloza Lymphocytes/100 WBC (Bld) 38.6 % Normal 20.5-60.[address] [facility] Comment on above: Performed By: #### C AARON ZHU LIPA #### [facility] [address] [place] [address] Dr. Judah Peñaloza MANUAL DIFF REQ NO Normal [facility] Comment on above: Performed By: #### C AARON ZHU LIPA #### [facility] [address] [place] [address] Dr. Judah Peñaloza MCH (RBC) [Entitic mass] 29.5 pg Normal 26.7-34.[address] [facility] Comment on above: Performed By: #### C AARON ZHU LIPA #### [facility] [address] [place] [address] Dr. Judah Peñaloza MCHC (RBC) [Mass/Vol] 32.8 g/dL Normal 29.9-35.[address] [facility] Comment on above: Performed By: #### C AARON ZHU LIPA #### [facility] [address] [place] [address] Dr. Judah Peñaloza MCV (RBC) [Entitic vol] 89.9 fL Normal 81.0-99.0 [facility] Comment on above: Performed By: #### C AARON ZHU LIPA #### [facility] [address] [place] [address] Dr. Judah Peñaloza MONO # 0.5 103/ul Normal 0.3-0.[address] [facility] Comment on above: Performed By: #### C MP, AARON, LIPA #### [facility] [address] [address] [address] Judah Peñaloza Monocytes/100 WBC (Bld) 6.8 % Normal 1.7-12.0 [facility] Comment on above: Performed By: #### C MP, AARON, LIPA #### [facility] [address] [place] [address] Dr. Judah Peñaloza NEUT # 3.6 103/ul Normal 1.4-6.[address] [facility] Comment on above: Performed By: #### C MP, AARON, LIPA #### [facility] [address] [place] [address] Dr. Judah Peñaloza Neutrophils/100 WBC (Bld) 53.4 % Normal 43.0-75.[address] [facility] Comment on above: Performed By: #### C AUDRA AARON, LIPA #### [facility] [address] [place] [address] Dr. Judah Peñaloza Platelet mean volume (Bld) [Entitic vol] 8.8 fL Critically low 9.5-13.[address] [facility] Comment on above: Performed By: #### C AUDRA AARON, LIPA #### [facility] [address] [place] [address] Dr. Judah Peñaloza PLT 281 103/ul Normal 150-[address] [facility] Comment on above: Performed By: #### C AUDRA AARON, LIPA #### [facility] [address] [place] [address] Dr. Judah Peñaloza RBC 4.24 106/ul Normal 4.20-5.[address] [facility] Comment on above: Performed By: #### C MP AARON, LIPA #### [facility] [address] [place] [address] Dr. Judah Peñaloza WBC 6.8 103/ul Normal 4.0-11.[address] [facility] Comment on above: Performed By: #### C MP, AARON, LIPA #### [facility] [address] [place] [address] Dr. Judah Peñaloza FREE T3on 03-22-2022 FREE T3 2.66 pg/mlL Normal 2.18-3.[address] [facility] Comment on above: Performed By: #### C MP, AARON, LIPA #### [facility] [address] [place] [address] Dr. Judah Peñaloza FREE T4on 03-22-2022 Free T4 [Mass/Vol] 1.02 ng/dL Normal 0.76-1.46 [facility] Comment on above: Performed By: #### C BC #### [facility] [address] [place] [address] Dr. Judah Peñaloza LIPASEon 03-22-2022 Lipase [Catalytic activity/Vol] 102.0 U/L Normal 73.0-393.[address] [facility] Comment on above: Performed By: #### L IPA, CMP, AARON, TSH, LIPID, FT3 #### [facility] [address] [place] [address] Dr. Judah Peñaloza LIPID PROFILEon 03-22-2022 CHOL-HDL RATIO NORM SEE BELOW Normal [facility] Comment on above: Result Comment: 3.3 - 4.4 LOW RISK 4.4 - 7.1 AVERAGE RISK 7.1 - 11.0 MODERATE RISK >11.0 HIGH RISK Performed By: #### C MP, AARON, LIPA #### [facility] [address] [place] [address] Dr. Judah Peñaloza Cholesterol [Mass/Vol] 146 mg/dL Normal <=200 [facility] Comment on above: Performed By: #### C MP, AARON, LIPA #### [facility] [address] [place] [address] Dr. Judah Peñaloza Cholesterol in HDL [Mass/Vol] 49 mg/dL Normal 40-[address] [facility] Comment on above: Performed By: #### C MP, AARON, LIPA #### [facility] [address] [place] [address] Dr. Judah Peñaloza Cholesterol in LDL [Mass/Vol] 70.4 mg/dL Normal [facility] Comment on above: Performed By: #### C MP, AARON, LIPA #### [facility] [address] [place] [address] Dr. Judah Peñaloza Cholesterol.total/Meg sterol in HDL [Mass ratio] 3.0 {ratio} Normal [facility] Comment on above: Performed By: #### C AARNO ZHU, LIPA #### [facility] [address] [place] [address] Dr. Judah Peñaloza HDL NORMAL > or = 60 mg/dl - LO W CARDIOVASCULAR RISK <40 mg/dl - HIGH CARDIOVASCULAR RISK Normal [facility] Comment on above: Performed By: #### C AUDRA AARON, LIPA #### [facility] [address] [place] [address] Dr. Judah Peñaloza LDL CALC NORMAL SEE BELOW Normal [facility] Comment on above: Result Comment: <100 mg/dl OPTIMAL 100 - 129 mg/dl NEAR OR ABOVE OPTIMAL 130 - 159 mg/dl BORDERLINE HIGH 160 - 189 mg/dl HIGH >190 mg/dl VERY HIGH Performed By: #### C AUDRA AARON, LIPA #### [facility] [address] [place] [address] Dr. Judah Peñaloza Triglyceride [Mass/Vol] 133 mg/dL Normal <=150 [facility] Comment on above: Performed By: #### C AUDRA AARON, LIPA #### [facility] [address] [place] [address] Dr. Judah Peñaloza VLDL CALC 26.6 mg/dL Normal [facility] Comment on above: Performed By: #### C MP, AARON, LIPA #### [facility] [address] [place] [address] Dr. Judah Peñaloza PROF 14(COMP METB)on 022 Albumin [Mass/Vol] 3.7 g/dL Normal 3.4-5.0 [facility] Comment on above: Performed By: #### L IPA, CMP, AARON, TSH, LIPID, FT3 #### [facility] [address] [place] [address] Dr. Judah Peñaloza Albumin/Globulin [Mass ratio] 1.1 {ratio} Normal [facility] Comment on above: Performed By: #### L IPA, CMP, AARON, TSH, LIPID, FT3 #### [facility] [address] [address] [address] uJdah Peñaloza ALP [Catalytic activity/Vol] 122 U/L Critically high 46-[address] [facility] Comment on above: Performed By: #### L IPA, CMP, AARON, TSH, LIPID, FT3 #### [facility] [address] [address] [address] Judah Peñaloza ALT [Catalytic activity/Vol] 34 U/L Normal 14-[address] [facility] Comment on above: Performed By: #### L IPA, CMP, AARON, TSH, LIPID, FT3 #### [facility] [address] [address] [address] Judah Peñaloza Anion gap [Moles/Vol] 8.7 mmol/L Normal [facility] Comment on above: Performed By: #### L IPA, CMP, AARON, TSH, LIPID, FT3 #### [facility] [address] [place] [address] Dr. Judah Peñaloza AST [Catalytic activity/Vol] 20 U/L Normal 15-[address] [facility] Comment on above: Performed By: #### L IPA, CMP, AARON, TSH, LIPID, FT3 #### [facility] [address] [address] [address] Judah Peñaloza Bilirubin [Mass/Vol] 0.4 mg/dL Normal 0.2-1.[address] [facility] Comment on above: Performed By: #### L IPA, CMP, AARON, TSH, LIPID, FT3 #### [facility] [address] [place] [address] Dr. Judah Peñaloza Calcium [Mass/Vol] 9.2 mg/dL Normal 8.5-10.1 [facility] Comment on above: Performed By: #### L IPA, CMP, AARON, TSH, LIPID, FT3 #### [facility] [facility] [address] [place] [address] Dr. Judah Peñaloza Chloride [Moles/Vol] 103 mmol/L Normal 98-[address] [facility] Comment on above: Performed By: #### L IPA, CMP, AARON, TSH, LIPID, FT3 #### [facility] [address] [address] [address] Judah Peñaloza CO2 [Moles/Vol] 32.1 mmol/L Critically high 21.0-32.[address] [facility] Comment on above: Performed By: #### L IPA, CMP, AARON, TSH, LIPID, FT3 #### [facility] [address] [place] [address] Dr. Judah Peñaloza Creatinine [Mass/Vol] 0.94 mg/dL Normal 0.55-1.[address] [facility] Comment on above: Performed By: #### L IPA, CMP, AARON, TSH, LIPID, FT3 #### [facility] [address] [place] [address] Dr. Judah Peñaloza EGFR-AF HAITIAN >60 Normal >=60 [facility] Comment on above: Performed By: #### L IPA, CMP, AARON, TSH, LIPID, FT3 #### [facility] [address] [place] [address] Dr. Judah Peñaloza EGFR-NON AF HAITIAN >60 Normal >=[address] [facility] Comment on above: Performed By: #### L IPA, CMP, ARAON, TSH, LIPID, FT3 #### [facility] [address] [place] [address] Dr. Judah Peñaloza Globulin (S) [Mass/Vol] 3.5 g/dL Normal [facility] Comment on above: Performed By: #### L IPA, CMP, AARON, TSH, LIPID, FT3 #### [facility] [address] [place] [address] Dr. Judah Peñaloza Glucose [Mass/Vol] 83 mg/dL Normal 74-106 [facility] Comment on above: Performed By: #### L IPA, CMP, AARON, TSH, LIPID, FT3 #### [facility] [address] [place] [address] Dr. Judah Peñaloza Potassium [Moles/Vol] 3.8 mmol/L Normal 3.5-5.[address] [facility] Comment on above: Performed By: #### L IPA, CMP, AARON, TSH, LIPID, FT3 #### [facility] [address] [place] [address] Dr. Judah Peñaloza Protein [Mass/Vol] 7.2 g/dL Normal 6.4-8.2 [facility] Comment on above: Performed By: #### L IPA, CMP, AARON, TSH, LIPID, FT3 #### [facility] [address] [address] [address] Judah Peñaloza Sodium [Moles/Vol] 140 mmol/L Normal 136-145 [facility] Comment on above: Performed By: #### L IPA, CMP, AARON, TSH, LIPID, FT3 #### [facility] [address] [address] [address] Judah Peñaloza Urea nitrogen [Mass/Vol] 11.0 mg/dL Normal 7.0-18.0 [facility] Comment on above: Performed By: #### L IPA, CMP, AARON, TSH, LIPID, FT3 #### [facility] [address] [place] [address] Dr. Judah Peñaloza Urea nitrogen/Creatinine [Mass ratio] 11.7 mg/mg Normal [facility] Comment on above: Performed By: #### L IPA, CMP, AARON, TSH, LIPID, FT3 #### [facility] [address] [place] [address] Dr. Judah Peñaloza TSHon 03-22-2022 TSH 0.603 uIU/mL Normal 0.358-3.740 [facility] Comment on above: Performed By: #### C MP, AARON, LIPA #### [facility] [address] [place] [address] Dr. Judah Peñaloza UA RANDOM W/MICROSCOPICon BACTERIA TRACE Abnormal NONE SEEN [facility] Comment on above: Performed By: #### U AMIC #### [facility] [address] [place] [address] Dr. Judah Peñaloza Bilirubin Ql (U) Negative Normal NEGATIVE [facility] Comment on above: Performed By: #### U AMIC #### [facility] [address] [place] [address] Dr. Judah Peñaloza CAST SEEN Abnormal NONE SEEN [facility] Comment on above: Performed By: #### U AMIC #### [facility] [address] [address] [address] Judah Peñaloza Clarity (U) CLEAR Normal CLEAR [facility] Comment on above: Performed By: #### U AMIC #### [facility] [address] [address] [address] Judah Peñaloza Color (U) YELLOW Normal YELLOW [facility] Comment on above: Performed By: #### U AMIC #### [facility] [address] [address] [address] Judah Peñaloza Crystals LM Nom (Urine sed) NONE SEEN Normal NONE SEEN [facility] Comment on above: Performed By: #### U AMIC #### [facility] [address] [place] [address] Dr. Judah Peñaloza Epithelial cells LM Ql (Urine sed) FEW Abnormal NONE SEEN /RARE [facility] Comment on above: Performed By: #### U AMIC #### [facility] [address] [address] [address] Judah Peñaloza Glucose Ql (U) Negative Normal NEGATIVE [facility] Comment on above: Performed By: #### U AMIC #### [facility] [address] [place] [address] Dr. Judah Peñaloza Hemoglobin Ql (U) Negative Normal NEGATIVE [facility] Comment on above: Performed By: #### U AMIC #### [facility] [address] [address] [address] Judah Peñaloza HYALINE CAST RARE Normal [facility] Comment on above: Performed By: #### U AMIC #### [facility] [address] [address] [address] Judah Peñaloza Ketones Ql (U) Negative Normal NEGATIVE [facility] Comment on above: Performed By: #### U AMIC #### [facility] [address] [place] [address] Dr. Judah Peñaloza LEUKOCYTES Negative Normal NEGATIVE [facility] Comment on above: Performed By: #### U AMIC #### [facility] [address] [place] [address] Dr. Judah Peñaloza MUCOUS NONE SEEN Normal NONE SEEN [facility] Comment on above: Performed By: #### U AMIC #### [facility] [address] [place] [address] Dr. Judah Peñaloza Nitrite Ql (U) Negative Normal NEGATIVE [facility] Comment on above: Performed By: #### U AMIC #### [facility] [address] [place] [address] Dr. Judah Peñaloza pH (U) 7.0 [pH] Normal 5-9 [facility] Comment on above: Performed By: #### U AMIC #### [facility] [address] [place] [address] Dr. Judah Peñaloza RBC 0-2 Normal 0-[address] [facility] Comment on above: Performed By: #### U AMIC #### [facility] [address] [place] [address] Dr. Judah Peñaloza SPEC GRAVITY 1.020 Normal 1.005-<=1.[address] [facility] Comment on above: Performed By: #### U AMIC #### [facility] [address] [place] [address] Dr. Judah Peñaloza UA PROTEIN Negative Normal NEGATIVE/ TRACE [facility] Comment on above: Performed By: #### U AMIC #### [facility] [address] [place] [address] Dr. Judah Peñaloza Urobilinogen Qn (U) 0.2 {Gonzales'U}/dL Normal 0.2 - 1. [address] [facility] Comment on above: Performed By: #### U AMIC #### [facility] [address] [place] [address] Dr. Judah Peñaloza WBC 0-2 Abnormal NONE SEEN [facility] Comment on above: Performed By: #### U AMIC #### [facility] [address] [place] [address] Dr. Judah RODRIGUEZOVon 01-05-2022 CNOV Office Visit (GENE ) ALOREGLA DO ([id number]) 1970 F Date Time Provider Department 01/05/22 11:45 AM BRAD BONE JR During your visit today, we recorded the following information about you: Weight Height 70.8 kg 1.575 m Brad Bone MD 01/05/2022 1:31 PM Signed CONSULTATION Requesting provider: Renetta Ridley, MAGNAFLUX OPERATOR ([facility]) [address] [facility] [address] Alo is here today for my opinion [...] having consiptation. Last endoscopic W/U was in [place] about 3 years ago. Initial work up performed at OSH ([place], [place]): US - normal GB, wall = [...] Bone MD cc: Referring provider Renetta Ridley, MAGNAFLUX OPERATOR ([facility]) [address] [facility] [address] Referring Provider: RENETTA RIDLEY [[id number]] Allergies As of Date: 01/05/2022 Noted Allergy Reaction AMLODIPINE 05/08/2019 7 - Swelling Comments: BLE swelling PENICILLINS 04/24/2002 Date Reviewed: 01/05/2022 Reviewed by: Krystyna Mcrae LPN - Fully Assessed Reason for Visit: Abdominal Pain [1] Cmt: 2 m Primary Visit Diagnosis:Nausea and vomiting, unspecified vomiting type [R11.2] Other Visit Diagnoses:Bloating [R14.0] Other constipation [K59.09] Order(s):CONSULT TO GASTROENTEROLOGY [5770] Order #: [id number]: 1 FUTURE Prescriptions as of 01/05/2022 - pantoprazole DR (PROTONIX) 40 mg tablet Take 40 mg by mouth once daily. - SYNTHROID 50 mcg tablet - conjugated estrogens (TN (more content not included)... 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 [3602] Prescriptions as of 12/28/2021 [...] 04/24/2002 PVD (peripheral vascular disease) ([facility]) [I73.9] 03/19/2019 Essential hypertension [I10] 03/19/2019 Dyslipidemia [...] Status:Closed by MELIZA DOBBINS on 12/28/21 Normal [facility] Physician Referralon 022 Physician Referral [id number] CD:127 Normal [facility] [place] HEPATOBILIARY SCAN W EFon 12-16-2021 NM [...] GURMEET PUGH Date: 2021-12-16 09:56 Normal [facility] AMYLASEon 12-12-2021 Amylase [Catalytic activity/Vol] 74 U/L Normal 25-115 [facility] Comment on above: Performed By: #### C MP, AARON, LIPA #### [facility] [address] [place] [address] Dr. Judah Peñaloza CBC AUTO DIFFon 12-12-2021 BASO # 0.0 103/ul Normal 0.0-0.[address] [facility] Comment on above: Performed By: #### C BC #### [facility] [address] [address] [address] Judah Peñaloza Basophils/100 WBC (Bld) 0.2 % Normal 0.2-2.0 [facility] Comment on above: Performed By: #### C BC #### [facility] [address] [place] [address] Dr. Judah Peñaloza EO # 0.1 103/ul Normal 0.0-0.[address] [facility] Comment on above: Performed By: #### C BC #### [facility] [address] [place] [address] Dr. Judah Peñaloza Eosinophils/100 WBC (Bld) 0.5 % Critically low 0.9-7.[address] [facility] Comment on above: Performed By: #### C BC #### [facility] [address] [place] [address] Dr. Judah Peñaloza Erythrocyte distribution width (RBC) [Ratio] 14.1 % Normal 11.0-15.[address] [facility] Comment on above: Performed By: #### C BC #### [facility] [address] [place] [address] Dr. Judah Peñaloza Hematocrit (Bld) [Volume fraction] 40.1 % Normal 36.0-48.[address] [facility] Comment on above: Performed By: #### C BC #### [facility] [address] [place] [address] Dr. Judah Peñaloza Hemoglobin (Bld) [Mass/Vol] 13.5 g/dL Normal 12.0-16.[address] [facility] Comment on above: Performed By: #### C BC #### [facility] [address] [place] [address] Dr. Judah Peñaloza IG # 0.03 10e3/ul Normal 0.00-0.[address] [facility] Comment on above: Performed By: #### C BC #### [facility] [address] [place] [address] Dr. Judah Peñaloza IG % 0.3 % Normal 0.0-0.[address] [facility] Comment on above: Performed By: #### C BC #### [facility] [address] [place] [address] Dr. Judah Peñaloza LYMPH # 2.7 103/ul Normal 1.2-3.[address] [facility] Comment on above: Performed By: #### C BC #### [facility] [address] [place] [address] Dr. Judah Peñaloza Lymphocytes/100 WBC (Bld) 24.9 % Normal 20.5-60.[address] [facility] Comment on above: Performed By: #### C BC #### [facility] [address] [place] [address] Dr. Judah Peñaloza MANUAL DIFF REQ NO Normal [facility] Comment on above: Performed By: #### C BC #### [facility] [address] [place] [address] Dr. Judah Peñaloza MCH (RBC) [Entitic mass] 28.5 pg Normal 26.7-34.[address] [facility] Comment on above: Performed By: #### C BC #### [facility] [address] [place] [address] Dr. Judah Peñaloza MCHC (RBC) [Mass/Vol] 33.7 g/dL Normal 29.9-35.[address] [facility] Comment on above: Performed By: #### C BC #### [facility] [address] [place] [address] Dr. Judah Peñaloza MCV (RBC) [Entitic vol] 84.8 fL Normal 81.0-99.0 [facility] Comment on above: Performed By: #### C BC #### [facility] [address] [place] [address] Dr. Judah Peñaloza MONO # 0.9 103/ul Critically high 0.3-0.8 [facility] Comment on above: Performed By: #### C BC #### [facility] [address] [place] [address] Dr. Judah Peñaloza Monocytes/100 WBC (Bld) 8.7 % Normal 1.7-12.0 [facility] Comment on above: Performed By: #### C BC #### [facility] [address] [place] [address] Dr. Judah Peñaloza NEUT # 7.0 103/ul Critically high 1.4-6.5 [facility] Comment on above: Performed By: #### C BC #### [facility] [address] [address] [address] Judah Peñaloza Neutrophils/100 WBC (Bld) 65.4 % Normal 43.0-75.[address] [facility] Comment on above: Performed By: #### C BC #### [facility] [address] [address] [address] Judah Peñaloza Platelet mean volume (Bld) [Entitic vol] 9.0 fL Critically low 9.5-13.[address] [facility] Comment on above: Performed By: #### C BC #### [facility] [address] [place] [address] Dr. Judah Peñaloza PLT 259 103/ul Normal 150-[address] [facility] Comment on above: Performed By: #### C BC #### [facility] [address] [place] [address] Dr. Judah Peñaloza RBC 4.73 106/ul Normal 4.20-5.[address] [facility] Comment on above: Performed By: #### C BC #### [facility] [address] [address] [address] Judah Peñaloza WBC 10.6 103/ul Normal 4.0-11.[address] [facility] Comment on above: Performed By: #### C BC #### [facility] [address] [place] [address] Dr. Judah Peñaloza LIPASEon 12-12-2021 Lipase [Catalytic activity/Vol] 88.0 U/L Normal 73.0-393.[address] [facility] Comment on above: Performed By: #### C AARON ZHU LIPA #### [facility] [address] [place] [address] Dr. Judah Peñaloza LIVER PROFILEon 12-12-2021 Albumin [Mass/Vol] 4.2 g/dL Normal 3.4-5.0 [facility] Comment on above: Performed By: #### C MP, AARON, LIPA #### [facility] [address] [address] [address] Judah Peñaloza Albumin/Globulin [Mass ratio] 1.4 {ratio} Normal [facility] Comment on above: Performed By: #### C MP, AARON, LIPA #### [facility] [address] [address] [address] Judah Peñaloza ALP [Catalytic activity/Vol] 127 U/L Critically high 46-[address] [facility] Comment on above: Performed By: #### C MP, AARON, LIPA #### [facility] [address] [address] [address] Judah Peñaloza ALT [Catalytic activity/Vol] 54 U/L Normal 14-[address] [facility] Comment on above: Performed By: #### C MP, AARON, LIPA #### [facility] [address] [address] [address] Judah Peñaloza AST [Catalytic activity/Vol] 36 U/L Normal 15-[address] [facility] Comment on above: Performed By: #### C MP, AARON, LIPA #### [facility] [address] [address] [address] Judah Peñaloza BILI, CONJUGATED 0.2 mg/dL Normal 0.0-0.2 [facility] Comment on above: Performed By: #### C MP, AARON, LIPA #### [facility] [address] [address] [address] Judah Peñaloza Bilirubin [Mass/Vol] 0.8 mg/dL Normal 0.2-1.[address] [facility] Comment on above: Performed By: #### C MP, AARON, LIPA #### [facility] [address] [address] [address] Judah Peñaloza Globulin (S) [Mass/Vol] 3.1 g/dL Normal [facility] Comment on above: Performed By: #### C MP, AARON, LIPA #### [facility] [address] [address] [address] Judah Peñaloza Protein [Mass/Vol] 7.3 g/dL Normal 6.4-8.2 [facility] Comment on above: Performed By: #### C AARON ZHU LIPA #### [facility] [address] [address] [address] Judah Peñaloza PROF CHEM 8 (BAS METB)on Anion gap [Moles/Vol] 18.2 mmol/L Normal Th [facility] Comment on above: Performed By: #### C AARON ZHU LIPA #### [facility] [address] [address] [address] Judah Peñaloza Calcium [Mass/Vol] 9.5 mg/dL Normal 8.5-10.1 [facility] Comment on above: Performed By: #### C AARON ZHU LIPA #### [facility] [address] [address] [address] Judah Peñaloza Chloride [Moles/Vol] 98 mmol/L Normal 98-[address] [facility] Comment on above: Performed By: #### C AARON ZHU LIPA #### [facility] [address] [place] [address] Dr. Judah Peñaloza CO2 [Moles/Vol] 23.7 mmol/L Normal 21.0-32.0 [facility] Comment on above: Performed By: #### C AARON ZHU LIPA #### [facility] [address] [place] [address] Dr. Judah Peñaloza Creatinine [Mass/Vol] 2.02 mg/dL Critically high 0.55-1.[address] [facility] Comment on above: Performed By: #### C AARON ZHU LIPA #### [facility] [address] [place] [address] Dr. Judah Peñaloza EGFR-AF HAITIAN 32 mL/min/1.73m2 Critically low >=60 [facility] Comment on above: Performed By: #### C AARON ZHU LIPA #### [facility] [address] [place] [address] Dr. Judah Peñaloza EGFR-NON AF HAITIAN 26 mL/min/1.73m2 Critically low >=60 [facility] Comment on above: Performed By: #### C AARON ZHU LIPA #### [facility] [address] [address] [address] uJdah Peñaloza Glucose [Mass/Vol] 116 mg/dL Critically high 74-106 [facility] Comment on above: Performed By: #### C MP, AARON, LIPA #### [facility] [address] [address] [address] Judah Peñaloza Potassium [Moles/Vol] 3.9 mmol/L Normal 3.5-5.[address] [facility] Comment on above: Performed By: #### C MP, AARON, LIPA #### [facility] [address] [address] [address] Judah Peñaloza Sodium [Moles/Vol] 136 mmol/L Normal 136-145 [facility] Comment on above: Performed By: #### C MP, AARON, LIPA #### [facility] [address] [place] [address] Dr. Judah Peñaloza Urea nitrogen [Mass/Vol] 24.0 mg/dL Critically high 7.0-18.[address] [facility] Comment on above: Performed By: #### C AUDRA, AARON, LIPA #### [facility] [address] [address] [address] Judah Peñaloza Urea nitrogen/Creatinine [Mass ratio] 11.9 mg/mg Normal [facility] Comment on above: Performed By: #### C AUDRA, AARON, LIPA #### [facility] [address] [place] [address] Dr. Judah Peñaloza US SINGLE QUAD RT [...] by: GURMEET PUGH Date: 2021-12-12 10:[address] [facility] H PYLORI ANTIBODY IGGon 11-05 H. PYLORI IGG ABS 0.35 Index Value Normal 0.00-0.79 [facility] Comment on above: Result Comment: Nega tive <0.80 Equivocal 0.80 - 0.89 Positive >0.89 Performed By: #### H PYLLC #### [facility] [address] [place] [address] Dr. Judah Peñaloza AMYLASEon 11-29-2021 Amylase [Catalytic activity/Vol] 73 U/L Normal 25-[address] [facility] Comment on above: Performed By: #### C MP, AARON, LIPA #### [facility] [address] [place] [address] Dr. Judah Peñaloza CBC AUTO DIFFon 11-29-2021 BASO # 0.1 103/ul Normal 0.0-0.[address] [facility] Comment on above: Performed By: #### C BC #### [facility] [address] [place] [address] Dr. Judah Peñaloza Basophils/100 WBC (Bld) 0.6 % Normal 0.2-2.0 [facility] Comment on above: Performed By: #### C BC #### [facility] [address] [place] [address] Dr. Judah Peñaloza EO # 0.1 103/ul Normal 0.0-0.[address] [facility] Comment on above: Performed By: #### C BC #### [facility] [address] [place] [address] Dr. Judah Peñaloza Eosinophils/100 WBC (Bld) 0.7 % Critically low 0.9-7.[address] [facility] Comment on above: Performed By: #### C BC #### [facility] [address] [place] [address] Dr. Judah Peñaloza Erythrocyte distribution width (RBC) [Ratio] 14.0 % Normal 11.0-15.[address] [facility] Comment on above: Performed By: #### C BC #### [facility] [address] [place] [address] Dr. Judah Peñaloza Hematocrit (Bld) [Volume fraction] 42.7 % Normal 36.0-48.[address] [facility] Comment on above: Performed By: #### C BC #### [facility] [address] [place] [address] Dr. Judah Peñaloza Hemoglobin (Bld) [Mass/Vol] 13.9 g/dL Normal 12.0-16.[address] [facility] Comment on above: Performed By: #### C BC #### [facility] [address] [place] [address] Dr. Judah Peñaloza IG # 0.02 10e3/ul Normal 0.00-0.[address] [facility] Comment on above: Performed By: #### C BC #### [facility] [address] [place] [address] Dr. Judah Peñaloza IG % 0.2 % Normal 0.0-0.[address] [facility] Comment on above: Performed By: #### C BC #### [facility] [address] [place] [address] Dr. Judah Peñaloza LYMPH # 3.1 103/ul Normal 1.2-3.[address] [facility] Comment on above: Performed By: #### C BC #### [facility] [address] [place] [address] Dr. Judah Peñaloza Lymphocytes/100 WBC (Bld) 34.5 % Normal 20.5-60.[address] [facility] Comment on above: Performed By: #### C BC #### [facility] [address] [place] [address] Dr. uJdah Peñaloza MANUAL DIFF REQ NO Normal [facility] Comment on above: Performed By: #### C BC #### [facility] [address] [place] [address] Dr. Judah Peñaloza MCH (RBC) [Entitic mass] 28.2 pg Normal 26.7-34.[address] [facility] Comment on above: Performed By: #### C BC #### [facility] [address] [address] [address] Judah Peñaloza MCHC (RBC) [Mass/Vol] 32.6 g/dL Normal 29.9-35.[address] [facility] Comment on above: Performed By: #### C BC #### [facility] [address] [place] [address] Dr. Judah Peñaloza MCV (RBC) [Entitic vol] 86.6 fL Normal 81.0-99.0 [facility] Comment on above: Performed By: #### C BC #### [facility] [address] [place] [address] Dr. Judah Peñaloza MONO # 0.7 103/ul Normal 0.3-0.[address] [facility] Comment on above: Performed By: #### C BC #### [facility] [facility] [address] [place] [address] Dr. Judah Peñaloza Monocytes/100 WBC (Bld) 7.7 % Normal 1.7-12.0 [facility] Comment on above: Performed By: #### C BC #### [facility] [address] [place] [address] Dr. Judah Peñaloza NEUT # 5.1 103/ul Normal 1.4-6.[address] [facility] Comment on above: Performed By: #### C BC #### [facility] [address] [place] [address] Dr. Judah Peñaloza Neutrophils/100 WBC (Bld) 56.3 % Normal 43.0-75.[address] [facility] Comment on above: Performed By: #### C BC #### [facility] [address] [place] [address] Dr. Judah Peñaloza Platelet mean volume (Bld) [Entitic vol] 9.3 fL Critically low 9.5-13.[address] [facility] Comment on above: Performed By: #### C BC #### [facility] [address] [place] [address] Dr. Judah Peñaloza PLT 382 103/ul Normal 150-450 [facility] Comment on above: Performed By: #### C BC #### [facility] [address] [place] [address] Dr. Judah Peñaloza RBC 4.93 106/ul Normal 4.20-5.[address] [facility] Comment on above: Performed By: #### C BC #### [facility] [address] [place] [address] Dr. Judah Peñaloza WBC 9.0 103/ul Normal 4.0-11.[address] [facility] Comment on above: Performed By: #### C BC #### [facility] [address] [place] [address] Dr. Judah Peñaloza LIPASEon 11-29-2021 Lipase [Catalytic activity/Vol] 89.0 U/L Normal 73.0-393.[address] [facility] Comment on above: Performed By: #### C MP, AARON, LIPA #### [facility] [address] [place] [address] Dr. Judah Peñaloza PROF 14(COMP METB)on 022 Albumin [Mass/Vol] 4.3 g/dL Normal 3.4-5.0 [facility] Comment on above: Performed By: #### C MP, AARON, LIPA #### [facility] [address] [place] [address] Dr. Judah Peñaloza Albumin/Globulin [Mass ratio] 1.2 {ratio} Normal [facility] Comment on above: Performed By: #### C MP, AARON, LIPA #### [facility] [address] [place] [address] Dr. Judah Peñaloza ALP [Catalytic activity/Vol] 117 U/L Critically high 46-116 [facility] Comment on above: Performed By: #### C MP, AARON, LIPA #### [facility] [address] [place] [address] Dr. Judah Peñaloza ALT [Catalytic activity/Vol] 50 U/L Normal 14-[address] [facility] Comment on above: Performed By: #### C MP, AARON, LIPA #### [facility] [address] [place] [address] Dr. Judah Peñaloza Anion gap [Moles/Vol] 17.0 mmol/L Normal [facility] Comment on above: Performed By: #### C AARON ZHU LIPA #### [facility] [address] [place] [address] Dr. Judah Peñaloza AST [Catalytic activity/Vol] 37 U/L Normal 15-[address] [facility] Comment on above: Performed By: #### C AARON ZHU, LIPA #### [facility] [address] [place] [address] Dr. Judah Peñaloza Bilirubin [Mass/Vol] 0.6 mg/dL Normal 0.2-1.[address] [facility] Comment on above: Performed By: #### C AARON ZHU, LIPA #### [facility] [address] [place] [address] Dr. Judah Peñaloza Calcium [Mass/Vol] 9.5 mg/dL Normal 8.5-10.1 [facility] Comment on above: Performed By: #### C AARON ZHU LIPA #### [facility] [address] [place] [address] Dr. Judah Peñaloza Chloride [Moles/Vol] 100 mmol/L Normal 98-107 [facility] Comment on above: Performed By: #### C AARON ZHU, LIPA #### [facility] [address] [place] [address] Dr. Judah Peñaloza CO2 [Moles/Vol] 24.0 mmol/L Normal 21.0-32.0 [facility] Comment on above: Performed By: #### C AARON ZHU, LIPA #### [facility] [address] [place] [address] Dr. Judah Peñaloza Creatinine [Mass/Vol] 0.97 mg/dL Normal 0.55-1.[address] [facility] Comment on above: Performed By: #### C AARON ZHU LIPA #### [facility] [address] [place] [address] Dr. Judah Peñaloza EGFR-AF HAITIAN >60 Normal >=60 [facility] Comment on above: Performed By: #### C AARON ZHU, LIPA #### [facility] [address] [address] [address] Judah Peñaloza EGFR-NON AF HAITIAN >60 Normal >=[address] [facility] Comment on above: Performed By: #### C AARON ZHU LIPA #### [facility] [address] [address] [address] Judah Peñaloza Globulin (S) [Mass/Vol] 3.5 g/dL Normal [facility] Comment on above: Performed By: #### C AARON ZHU LIPA #### [facility] [address] [place] [address] Dr. Judah Peñaloza Glucose [Mass/Vol] 105 mg/dL Normal 74-106 [facility] Comment on above: Performed By: #### C AARON ZHU LIPA #### [facility] [address] [place] [address] Dr. Judah Peñaloza Potassium [Moles/Vol] 4.0 mmol/L Normal 3.5-5.[address] [facility] Comment on above: Performed By: #### C AARON ZHU LIPA #### [facility] [address] [place] [address] Dr. Judah Peñaloza Protein [Mass/Vol] 7.8 g/dL Normal 6.4-8.2 [facility] Comment on above: Performed By: #### C AARON ZHU LIPA #### [facility] [address] [place] [address] Dr. Judah Peñaloza Sodium [Moles/Vol] 137 mmol/L Normal 136-145 [facility] Comment on above: Performed By: #### C AARON ZHU LIPA #### [facility] [address] [place] [address] Dr. Judah Peñaloza Urea nitrogen [Mass/Vol] 13.0 mg/dL Normal 7.0-18.[address] [facility] Comment on above: Performed By: #### C AARON ZHU LIPA #### [facility] [address] [address] [address] Judah Peñaloza Urea nitrogen/Creatinine [Mass ratio] 13.4 mg/mg Normal [facility] Comment on above: Performed By: #### C MP, AARON, LIPA #### [facility] [address] [address] [address] Judah Peñaloza UA RANDOM W/MICROSCOPICon BACTERIA TRACE Abnormal NONE SEEN [facility] Comment on above: Performed By: #### U AMIC #### [facility] [address] [address] [address] Judah Peñaloza Bilirubin Ql (U) Negative Normal NEGATIVE [facility] Comment on above: Performed By: #### U AMIC #### [facility] [address] [address] [address] Judah Peñaloza CAST NONE SEEN Normal NONE SEEN [facility] Comment on above: Performed By: #### U AMIC #### [facility] [address] [address] [address] Judah Peñaloza Clarity (U) CLOUDY Abnormal CLEAR [facility] Comment on above: Performed By: #### U AMIC #### [facility] [address] [address] [address] Judah Peñaloza Color (U) YELLOW Normal YELLOW [facility] Comment on above: Performed By: #### U AMIC #### [facility] [address] [address] [address] Judah Peñaloza Crystals LM Nom (Urine sed) SEEN Abnormal NONE SEEN [facility] Comment on above: Performed By: #### U AMIC #### [facility] [address] [address] [address] Judah Peñaloza Epithelial cells LM Ql (Urine sed) RARE Normal NONE SEEN /RARE [facility] Comment on above: Performed By: #### U AMIC #### [facility] [address] [address] [address] Judah Peñaloza Glucose Ql (U) Negative Normal NEGATIVE [facility] Comment on above: Performed By: #### U AMIC #### [facility] [address] [address] [address] Judah Peñaloza Hemoglobin Ql (U) Negative Normal NEGATIVE [facility] Comment on above: Performed By: #### U AMIC #### [facility] [address] [address] [address] Judah Peñaloza Ketones Ql (U) Negative Normal NEGATIVE [facility] Comment on above: Performed By: #### U AMIC #### [facility] [address] [place] [address] Dr. Judah Peñaloza LEUKOCYTES Negative Normal NEGATIVE [facility] Comment on above: Performed By: #### U AMIC #### [facility] [address] [address] [address] Judah Peñaloza MUCOUS NONE SEEN Normal NONE SEEN [facility] Comment on above: Performed By: #### U AMIC #### [facility] [address] [place] [address] Dr. Judah Peñaloza Nitrite Ql (U) Negative Normal NEGATIVE [facility] Comment on above: Performed By: #### U AMIC #### [facility] [address] [place] [address] Dr. Judah Peñaloza pH (U) 6.0 [pH] Normal 5-9 [facility] Comment on above: Performed By: #### U AMIC #### [facility] [address] [place] [address] Dr. Judah Peñaloza RBC NONE SEEN Abnormal 0-2 [facility] Comment on above: Performed By: #### U AMIC #### [facility] [address] [place] [address] Dr. Judah Peñaloza SPEC GRAVITY 1.025 Normal 1.005-<=1.[address] [facility] Comment on above: Performed By: #### U AMIC #### [facility] [address] [place] [address] Dr. Judah Peñaloza UA PROTEIN Negative Normal NEGATIVE/ TRACE [facility] Comment on above: Performed By: #### U AMIC #### [facility] [address] [place] [address] Dr. Judah Peñaloza Urobilinogen Qn (U) 1.0 {Gonzales'U}/dL Normal 0.2 - 1. [address] [facility] Comment on above: Performed By: #### U AMIC #### [facility] [address] [place] [address] Dr. Judah Peñaloza WBC 0-2 Abnormal NONE SEEN [facility] Comment on above: Performed By: #### U AMIC #### [facility] [address] [place] [address] Dr. Judah Peñaloza US THYROIDon 10-31-2021 US [...] GURMEET PUGH Date: 2021-10-31 16:25 Normal [facility] FREE T3on 10-25-2021 FREE T3 2.52 pg/mlL Normal 2.18-3.98 [facility] Comment on above: Performed By: #### C AARON ZHU LIPA #### [facility] [address] [place] [address] Dr. Judah Peñaloza FREE T4on 10-25-2021 Free T4 [Mass/Vol] 1.07 ng/dL Normal 0.76-1.46 [facility] Comment on above: Performed By: #### C AARON ZHU LIPA #### [facility] [address] [place] [address] Dr. Judah Peñaloza TSHon 10-25-2021 TSH 0.747 uIU/mL Normal 0.358-3.740 [facility] Comment on above: Performed By: #### C AARON ZHU LIPA #### [facility] [address] [place] [address] Dr. Judah Peñaloza FREE T4on 09-22-2021 Free T4 [Mass/Vol] 1.11 ng/dL Normal 0.76-1.46 [facility] Comment on above: Performed By: #### C AARON ZHU, LIPA #### [facility] [address] [address] [address] Judah Peñaloza PROF CHEM 8 (BAS METB)on Anion gap [Moles/Vol] 14.0 mmol/L Normal Th [facility] Comment on above: Performed By: #### C AARON ZHU, LIPA #### [facility] [address] [place] [address] Dr. Judah Peñaloza Calcium [Mass/Vol] 9.1 mg/dL Normal 8.5-10.1 [facility] Comment on above: Performed By: #### C AARON ZHU LIPA #### [facility] [address] [place] [address] Dr. Judah Peñaloza Chloride [Moles/Vol] 103 mmol/L Normal 98-107 [facility] Comment on above: Performed By: #### C AARON HZU, LIPA #### [facility] [address] [place] [address] Dr. Judah Peñaloza CO2 [Moles/Vol] 27.1 mmol/L Normal 21.0-32.0 [facility] Comment on above: Performed By: #### C AARON ZHU, LIPA #### [facility] [address] [place] [address] Dr. Judah Peñaloza Creatinine [Mass/Vol] 0.91 mg/dL Normal 0.55-1.02 [facility] Comment on above: Performed By: #### C AARON ZHU, LIPA #### [facility] [address] [place] [address] Dr. Juadh Peñaloza EGFR-AF HAITIAN >60 Normal >=60 [facility] Comment on above: Performed By: #### C AARON ZHU, LIPA #### [facility] [address] [place] [address] Dr. Judah Peñaloza EGFR-NON AF HAITIAN >60 Normal >=60 [facility] Comment on above: Performed By: #### C AARON ZHU, LIPA #### [facility] [address] [place] [address] Dr. Judah Peñaloza Glucose [Mass/Vol] 101 mg/dL Normal 74-106 [facility] Comment on above: Performed By: #### C AARON ZHU LIPA #### [facility] [address] [address] [address] Judah Peñaloza Potassium [Moles/Vol] 4.1 mmol/L Normal 3.5-5.[address] [facility] Comment on above: Performed By: #### C AARON ZHU, LIPA #### [facility] [address] [place] [address] Dr. Judah Peñaloza Sodium [Moles/Vol] 140 mmol/L Normal 136-145 [facility] Comment on above: Performed By: #### C AARON ZHU LIPA #### [facility] [address] [place] [address] Dr. Judah Peañloza Urea nitrogen [Mass/Vol] 11.0 mg/dL Normal 7.0-18.[address] [facility] Comment on above: Performed By: #### C AARON ZHU, LIPA #### [facility] [address] [place] [address] Dr. Judah Peñaloza Urea nitrogen/Creatinine [Mass ratio] 12.1 mg/mg Normal [facility] Comment on above: Performed By: #### C AARON ZHU, LIPA #### [facility] [address] [place] [address] Dr. Judah Peñaloza TSHon 09-22-2021 TSH 0.118 uIU/mL Critically low 0.358-3.740 [facility] Comment on above: Performed By: #### C AARON ZHU, LIPA #### [facility] [address] [place] [address] Dr. Judah Peñaloza TSH RANGE SEE BELOW Normal [facility] Comment on above: Result Comment: <0.3 4 UIU/ml HYPERTHYROID 0.34-5.60 UIU/ml EUTHYROID >5.60 UIU/ml HYPOTHYROID Performed By: #### C AARON ZHU, LIPA #### [facility] [address] [place] [address] Dr. Judah Campos 09-20-2021 CNOV Office Visit (MIRTA ) ALOREGLA Guillermo ([id number]) 1970 F Date Time Provider Department 09/20/21 [...] reviewed Creatinine (more content not included)... Normal [facility] URINALYSIS, REFLEX MICROSCOP ICon 09-20-2021 Bilirubin Ql (U) Negative Normal Negative [facility] Comment on above: Order Comment: Speci men Type: URINE SPECIMENOrdering Facility: [facility] Address: [address] [place] [address] Performed By: #### L [id number] ####[facility] Q7CLIA [id number] [place] [address] [place] Clarity (Unsp spec) Clear Normal Clear [facility] Comment on above: Order Comment: Speci men Type: URINE SPECIMENOrdering Facility: [facility] Address: [address] [address] Performed By: #### L [id number] ####[facility] Q7CLIA [id number] [place] [address] [place] Color (U) Light Yellow Normal Yellow [facility] Comment on above: Order Comment: Speci men Type: URINE SPECIMENOrdering Facility: [facility] Address: [address] [place] [address] Performed By: #### L [id number] ####[facility] Q7CLIA [id number] [address] [place] Glucose Test strip (U) [Mass/Vol] Negative Normal Negative [facility] Comment on above: Order Comment: Speci men Type: URINE SPECIMENOrdering Facility: [facility] Address: [address] [place], [place] [id number] Performed By: #### L [id number] ####[facility] Q7CLIA [id number] [place] [address] [place] Hemoglobin Ql (U) Negative Normal Negative [facility] Comment on above: Order Comment: Speci men Type: URINE SPECIMENOrdering Facility: [facility] Address: [address] [place], [place] [id number] Performed By: #### L [id number] ####[facility] Q7CLIA [id number] [address] [place] Ketones Ql (U) Negative Normal Negative [facility] Comment on above: Order Comment: Speci men Type: URINE SPECIMENOrdering Facility: [facility] Address: [address] [place], [place] [id number] Performed By: #### L [id number] ####[facility] Q7CLIA [id number] [address] [place] Leukocyte esterase Test strip Ql (U) Negative Normal Negative [facility] Comment on above: Order Comment: Speci men Type: URINE SPECIMENOrdering Facility: [facility] Address: [address] [place] [address] Performed By: #### L [id number] ####[facility] Q7CLIA [id number] [place] [address] [place] Nitrite Ql (U) Negative Normal Negative [facility] Comment on above: Order Comment: Speci men Type: URINE SPECIMENOrdering Facility: [facility] Address: [address] [address] Performed By: #### L [id number] ####[facility] Q7CLIA [id number] [place] [address] [place] pH (U) 6.5 [pH] Normal 5.0-8.0 [facility] Comment on above: Order Comment: Speci men Type: URINE SPECIMENOrdering Facility: [facility] Address: [address] [place] [address] Performed By: #### L [id number] ####[facility] Q7CLIA [id number] [place] [address] [place] Protein (U) [Mass/Vol] Negative Normal Negative [facility] Comment on above: Order Comment: Speci men Type: URINE SPECIMENOrdering Facility: [facility] Address: [address] [place] [address] Performed By: #### L [id number] ####[facility] Q7CLIA [id number] [place] [address] [place] Specific gravity (U) [Rel density] 1.009 Normal 1.005-1.030 [facility] Comment on above: Order Comment: Speci men Type: URINE SPECIMENOrdering Facility: [facility] Address: [address] [place] [address] Performed By: #### L [id number] ####[facility] Q7CLIA [id number] [address] [place] Urobilinogen Ql (U) Negative Normal Negative [facility] Comment on above: Order Comment: Speci men Type: URINE SPECIMENOrdering Facility: [facility] Address: [address] [place], [place] [phone] Performed By: #### L [id number] ####[facility] Q7CLIA [id number] [place] [address] [place] CNOVon 09-09-2021 CNOV Office Visit (CARDAV ) REGLA PRAJAPATI ([id number]) 1970 F Date Time Provider Department 09/09/21 [...] in-stent reste (more content not included)... Normal [facility] THYROID ANTIBODIESon Thyroglobulin Antibody <1.0 Normal 0.0-0.9 [facility] Comment on above: Result Comment: Thyr oglobulin Antibody measured by [employer] Methodology Performed By: #### C BC #### [facility] [address] [place] [address] Dr. Judah Peñaloza Thyroid Peroxidase (TPO) Ab <8 Normal 0-[address] [facility] Comment on above: Performed By: #### C BC #### [facility] [address] [place] [address] Dr. Judah Peñaloza PROF CHEM 8 (BAS METB)on Anion gap [Moles/Vol] 15.4 mmol/L Normal [facility] Comment on above: Performed By: #### C AARON ZHU LIPA #### [facility] [address] [place] [address] Dr. Judah Peñaloza Calcium [Mass/Vol] 8.8 mg/dL Normal 8.5-10.1 [facility] Comment on above: Performed By: #### C AARON ZHU LIPA #### [facility] [address] [place] [address] Dr. Judah Peñaloza Chloride [Moles/Vol] 103 mmol/L Normal 98-[address] [facility] Comment on above: Performed By: #### C AARON ZHU LIPA #### [facility] [address] [place] [address] Dr. Judah Peñaloza CO2 [Moles/Vol] 27.8 mmol/L Normal 21.0-32.0 [facility] Comment on above: Performed By: #### C AARON ZHU LIPA #### [facility] [address] [address] [address] Judah Peñaloza Creatinine [Mass/Vol] 1.00 mg/dL Normal 0.55-1.02 [facility] Comment on above: Performed By: #### C AARON ZHU LIPA #### [facility] [address] [address] [address] Judah Peñaloza EGFR-AF HAITIAN >60 Normal >=60 [facility] Comment on above: Performed By: #### C AARON ZHU LIPA #### [facility] [address] [place] [address] Dr. Judah Peñaloza EGFR-NON AF HAITIAN 59 mL/min/1.73m2 Critically low >=60 [facility] Comment on above: Performed By: #### C AARON ZHU LIPA #### [facility] [address] [address] [address] Judah Peñaloza Glucose [Mass/Vol] 80 mg/dL Normal 74-106 [facility] Comment on above: Performed By: #### C AARON ZHU LIPA #### [facility] [address] [address] [address] Judah Peñaloza Potassium [Moles/Vol] 4.2 mmol/L Normal 3.5-5.1 [facility] Comment on above: Performed By: #### C AARON ZHU LIPA #### [facility] [address] [address] [address] Judah Peñaloza Sodium [Moles/Vol] 142 mmol/L Normal 136-145 [facility] Comment on above: Performed By: #### C AARON ZHU LIPA #### [facility] [address] [address] [address] Judah Peñaloza Urea nitrogen [Mass/Vol] 14.0 mg/dL Normal 7.0-18.0 [facility] Comment on above: Performed By: #### C AARON ZHU, LIPA #### [facility] [address] [address] [address] Judah Peñaloza Urea nitrogen/Creatinine [Mass ratio] 14.0 mg/mg Normal [facility] Comment on above: Performed By: #### C MP AARON, LIPA #### [facility] [address] [address] [address] Judah Peñaloza PAP ACOG PANEL 2: 30 to 65on 08-22-2021 . . Normal [facility] Comment on above: Result Comment: Perf ormed at: WB Performed By: #### C BC #### [facility] [address] [address] [address] Judah Peñaloza Age Gdln ACOG Testing 30-65 [facility] Comment on above: Performed By: #### C BC #### [facility] [address] [place] [address] Dr. Judah Peñaloza DIAGNOSIS: Comment Normal [facility] Comment on above: Result Comment: NEGA TIVE FOR INTRAEPITHELIAL LESION OR MALIGNANCY. Performed at: WB Performed By: #### C BC #### [facility] [address] [address] [address] Judah Peñaloza HPV Aptima Negative Normal Negative [facility] Comment on above: Result Comment: This nucleic acid amplification test detects fourteen high-risk HPV types (16,18,31,33,35,39,45,51,52,56,58,59,66,68) without differentiation. Performed at: =G Performed By: #### C BC #### [facility] [address] [address] [address] Judah Peñaloza Methodology: Comment [facility] Comment on above: Result Comment: This liquid based ThinPrep(R) pap test was screened with the use of an image guided system. Performed at: WB Performed By: #### C BC #### [facility] [address] [address] [address] Judah Peñaloza Note: Comment Normal [facility] Comment on above: Result Comment: The Pap smear is a screening test designed to aid in the detection of premalignant and malignant conditions of the uterine cervix. It is not a diagnostic procedure and should not be used as the sole means of detecting cervical cancer. Both false-positive and false-negative reports do occur. . Performed at: WB Performed By: #### C BC #### [facility] [address] [place] [address] Dr. Judah Peñaloza Performed by: Comment Normal [facility] [facility] Comment on above: Result Comment: Shaggy Schulz, Exercise Specialist (ASCP) Performed at: WB Performed By: #### C BC #### [facility] [address] [place] [address] Dr. Judah Peñaloza Specimen adequacy: Comment Normal [facility] Comment on above: Result Comment: Sati sfactory for evaluation. No endocervical component is identified. Performed at: WB Performed By: #### C BC #### [facility] [address] [place] [address] Dr. Judah Peñaloza BD DXA - AXIAL SKELETONon BD DXA - AXIAL SKELETON * * *Final Repor t* * * DATE OF EXAM: Aug 12 2021 11:38AM [facility] 0804 - BD DXA - AXIAL SKELETON / PROCEDURE REASON: multiple diagnoses * * * * Physician Interpretation * * * * EXAMINATION: DXA BONE DENSITOMETRY BD DXA - AXIAL SKELETON PATIENT DEMOGRAPHICS: Age: 50 years, Race: , Gender: Female SCANNER INFORMATION: DXA Model: [facility] Alicia - HoloBoxer Horizon W [id number] Site Scanned: Lumbar spine and left hip [...] www.nof.org International Society of Clinical Densitometry www.iscd.org [employer] Developer: [id number] Transcribe Date/Time: Aug 12 2021 11:39A Dictated by : GURPREET TUCKER MD This examination was interpreted and the report reviewed and electronically signed by: GURPREET TUCKER MD on Aug 12 2021 12:33PM EST [id number] -1.4 Normal [facility] DXA-AXIAL SKELETONon 04-08-2 022 LOWEST T-SCORE -1.4 [facility] No Panel Informationon 05-02 [facility] CTA ABDOMEN W IVCONon 2020 [facility] HISTORY PHYSICALon 0 HISTORY PHYSICAL HNO ID: [id number] Author: Mau Morales Service: Neurosurgery Author Type: [...] March 03, 2020 TIME: 12:48 PM PAGER: [facility] IR REBECCA CCA H/N BILAT W/WO [...] TIME: 2:09 PM ATTENDING: Olive Catherine MD LICENSING COURT MAGISTRATE (FELLOW): Mau Morales MD The procedure was performed by the attending, with an museum assistant. The attending performed the following procedural activities: Diagnostic cerebral angiogram. ANGIOGRAPHY MATERIALS: Diagnostic catheter: 5 Moldovan Vert Catheter Guidewire: 0.035 inch angled tapered Glidewire. Fluoroscopic Radiation Summary: Plane A, Air Kerma: 273.4 mGy Plane B, Air Kerma: 109.2 mGy Dose Area Product (DAP): 10673.0 mGy*cm2 Fluoro time: 11:30 min:sec Contrast (arterial): 120 ml of OMNIPAQUE 300 ANESTHESIA: Conscious sedation with fentanyl and Versed were administered by IV with continuous monitoring by a dedicated nurse. Pulsed oximetry, cardiopulmonary monitoring and electrocardiography was performed throughout the procedure. Intra-service time (monitoring for moderate sedation) (starts with administration of agent, ends when continuous [id number] time ends): 45 minutes. Patient monitoring: I [...] right common femoral artery utilizing a 4 Moldovan micropuncture set. A 5 Moldovan sheath was inserted and connected to heparinized [...] superior cerebellar arteries are normal. The right EMBOSSING PRESS OPERATOR APPRENTICE is normal, and the left EMBOSSING PRESS OPERATOR APPRENTICE is not opacified due to the -type [...] superior cerebellar arteries are normal. The right EMBOSSING PRESS OPERATOR APPRENTICE is normal, and the left EMBOSSING PRESS OPERATOR APPRENTICE is not opacified due to the -type [...] Mild left vertebral artery origin stenosis. Left EMBOSSING PRESS OPERATOR APPRENTICE and left persistent trigeminal artery, a hypoplastic posterior circulation. [employer] Developer: PSCB Transcribe Date/Time: Mar 03 2020 2:26P Dictated by : MAU MORALES MD This examination was interpreted and the report reviewed and electronically signed by: OLIVE CATHERINE MD on Mar 04 2020 10:26AM EST [id number] [facility] IR-UNI SELECT VERT W/WO ARCH on [...] TIME: 2:09 PM ATTENDING: Olive Catherine MD LICENSING COURT MAGISTRATE (FELLOW): Mau Morales MD The procedure was performed by the attending, with an museum assistant. The attending performed the following procedural activities: Diagnostic cerebral angiogram. ANGIOGRAPHY MATERIALS: Diagnostic catheter: 5 Moldovan Vert Catheter Guidewire: 0.035 inch angled tapered Glidewire. Fluoroscopic Radiation Summary: Plane A, Air Kerma: 273.4 mGy Plane B, Air Kerma: 109.2 mGy Dose Area Product (DAP): 86925.0 mGy*cm2 Fluoro time: 11:30 min:sec Contrast (arterial): 120 ml of OMNIPAQUE 300 ANESTHESIA: Conscious sedation with fentanyl and Versed were administered by IV with continuous monitoring by a dedicated nurse. Pulsed oximetry, cardiopulmonary monitoring and electrocardiography was performed throughout the procedure. Intra-service time (monitoring for moderate sedation) (starts with administration of agent, ends when continuous [id number] time ends): 45 minutes. Patient monitoring: I [...] right common femoral artery utilizing a 4 Moldovan micropuncture set. A 5 Moldovan sheath was inserted and connected to heparinized [...] superior cerebellar arteries are normal. The right EMBOSSING PRESS OPERATOR APPRENTICE is normal, and the left EMBOSSING PRESS OPERATOR APPRENTICE is not opacified due to the -type [...] superior cerebellar arteries are normal. The right EMBOSSING PRESS OPERATOR APPRENTICE is normal, and the left EMBOSSING PRESS OPERATOR APPRENTICE is not opacified due to the -type [...] Mild left vertebral artery origin stenosis. Left EMBOSSING PRESS OPERATOR APPRENTICE and left persistent trigeminal artery, a hypoplastic posterior circulation. [employer] Developer: LYNN Transcribe Date/Time: Mar 03 2020 2:26P Dictated by : MAU MORALES MD This examination was interpreted and the report reviewed and electronically signed by: OLIVE CATHERINE MD on Mar 04 2020 10:26AM EST [id number] [facility] IR-UNI VERT-SC/INOM INJECTon 03-03-2020 IR-UNI VERT-SC/INOM [...] TIME: 2:09 PM ATTENDING: Olive Catherine MD LICENSING COURT MAGISTRATE (FELLOW): Mau Morales MD The procedure was performed by the attending, with an museum assistant. The attending performed the following procedural activities: Diagnostic cerebral angiogram. ANGIOGRAPHY MATERIALS: Diagnostic catheter: 5 Moldovan Vert Catheter Guidewire: 0.035 inch angled tapered Glidewire. Fluoroscopic Radiation Summary: Plane A, Air Kerma: 273.4 mGy Plane B, Air Kerma: 109.2 mGy Dose Area Product (DAP): 24380.0 mGy*cm2 Fluoro time: 11:30 min:sec Contrast (arterial): 120 ml of OMNIPAQUE 300 ANESTHESIA: Conscious sedation with fentanyl and Versed were administered by IV with continuous monitoring by a dedicated nurse. Pulsed oximetry, cardiopulmonary monitoring and electrocardiography was performed throughout the procedure. Intra-service time (monitoring for moderate sedation) (starts with administration of agent, ends when continuous [id number]-[id number] time ends): 45 minutes. Patient monitoring: I [...] right common femoral artery utilizing a 4 Moldovan micropuncture set. A 5 Moldovan sheath was inserted and connected to heparinized [...] superior cerebellar arteries are normal. The right EMBOSSING PRESS OPERATOR APPRENTICE is normal, and the left EMBOSSING PRESS OPERATOR APPRENTICE is not opacified due to the -type [...] superior cerebellar arteries are normal. The right EMBOSSING PRESS OPERATOR APPRENTICE is normal, and the left EMBOSSING PRESS OPERATOR APPRENTICE is not opacified due to the -type [...] Mild left vertebral artery origin stenosis. Left EMBOSSING PRESS OPERATOR APPRENTICE and left persistent trigeminal artery, a hypoplastic posterior circulation. [employer] Developer: PSCB Transcribe Date/Time: Mar 03 2020 2:26P Dictated by : MAU MORALES MD This examination was interpreted and the report reviewed and electronically signed by: OLIVE CATHERINE MD on Mar 04 2020 10:26AM EST [id number] Normal [facility] NURSING PROGon 03-03-2020 NURSING PROG HNO ID: [id number] Author: Antonio (Rn) RAMONA Hernandez Service: Nursing [...] None Electronically Signed By: Antonio Hernandez RN [facility] PT EDon 03-03-2020 PT ED HNO ID: [id number] Author: Gordo BrinkRnRadha Elaine RN Service: Radiology [...] None Electronically Signed By: Gordo Elaine RN [facility] PT ED HNO ID: [id number] Author: William BrinkRnRadha Mccray RN Service: Radiology [...] None Electronically Signed By: William Mccray RN [facility] 03-02-2020 CNPN Telephone (RGFV) REGLA PRAJAPATI ([id number]) 1970 F Date Time Provider Department 03/02/20 REUBEN MONROY (RT) [facility] During your visit today, we recorded the following information about you: Allergies As of Date: 03/02/2020 Noted Allergy Reaction AMLODIPINE 05/08/2019 7 - Swelling Comments: BLE swelling PENICILLINS 04/24/2002 Date Reviewed: 02/18/2020 Reviewed by: Umair (Rn) RAMONA Fitch - Fully Assessed Reason for Visit: Reminder Call [[id number]] Cmt: spoke to Regla and gave pre-angiogram instructions for 03/03/2020. Prescriptions [...] Encounter Status:Closed by REUBEN MONROY on 03/02/20 [facility] HOSPon 02-18-2020 HOSP Patient:Victor Manuel Prajapati [...] 46.0 36.0 Progress Notes (NEUS CEREBROVASC MAIN): Justina Hernandez 02/17/2020 12:31 PM Signed CV PHONE Name of caller : Regla Relationship to patient : Self If not self Will need patient permission to release results or disclose health information with called documented in . Was permission obtained from patient ? Yes Patient identified by Name and Date of . ( Regla Prajapati, 1970). Yes Number to return call [phone] Reason for Call : Patient Question - patient called stating she is suppose to have an angiogram with Dr. Catherine on Mar 03 and she does not see it in her MyChart. Please call Regla at [phone] Thank you calling [facility] [place]. You will receive a return call within [...] request completed today. Sent to Zoey Crespo DINING ROOM ATTENDANT to sign the orders so it may be scheduled for 03/03 as requested Progress Notes (NEUS CEREBROVASC MAIN): Elliott Salazar, 02/12/2020 3:16 PM Signed CEREBROVASCULAR CENTER Established nVirtual Visit Consultation [place]: [place] [id number] [facility] [id number] CEREBROVASCULAR HISTORY Regla Prajapati is a 49 [...] the age of 33 Paternal uncle with [place] at age of 50 ?she has had 3 pregnancies in past without complications In 03/08/20-- brief spell of rt facial twitching -- no LOC -- was worked up at the [facility] - no acute changes on [...] Salazar MD Staff, C[facility]brovascular Center [address] [facility] [id number] 12/11/2019 3:10 [place] [id number] [facility] [id number] Elliott Salazar, 02/12/2020 3:18 PM Signed Cerebral angiogram to be scheduled at [facility] ~~~~~~~~~~~~~~~~~~~~~~ ~~~~~~~~~~~~~~~~~~~~~~ ~~~~~~~~~~~~~~~~~~~~~~ ~~~~~~ Stroke Signs and [...] regimen, may be considered Adopted from the [place] Stroke Association Attack : A Guideline for Healthcare Professionals From the [place] Heart Guidelines for the Prevention of Stroke in Patients With Stroke or Transient Ischemic: Stroke 2010 Elliott Salazar, 02/12/2020 3:19 PM Signed Addended by: ELLIOTT SALAZAR on: 02/12/2020 03:19 PM Modules accepted: Orders Normal [facility] No Panel Informationon 01-06 [facility] Vital Signs Date Time Vital Sign Value Performing Clinician Facility 09-07-2023 10:12-0400 Body height 157.5 cm Mikey Ware MD Work Phone: [facility] 09-07-2023 10:12-0400 Body mass index (BMI) [Ratio] 27.25 kg/m2 Mikey Ware MD Work Phone: [facility] 09-07-2023 10:12-0400 Body weight 67.59 kg Mikey Ware MD Work Phone: [facility] 09-07-2023 10:12-0400 Diastolic blood pressure 72 mm[Hg] Mikey Ware MD Work Phone: [facility] 09-07-2023 10:12-0400 Heart rate 69 /min Mikey Ware MD Work Phone: [facility] 09-07-2023 10:12-0400 Systolic blood pressure 118 mm[Hg] Mikey Ware MD Work Phone: [facility] 08-19-2023 17:01-0400 Diastolic blood pressure 74 mm[Hg] Renetta Aichholz Work Phone: [facility] 08-19-2023 17:01-0400 Heart rate 92 /min Renetta Aichholz Work Phone: [facility] 08-19-2023 17:01-0400 Respiratory rate 18 /min Renetta Aichholz Work Phone: [facility] 08-19-2023 17:01-0400 SaO2% (BldA) [Mass fraction] 94 % Renetta Aichholz Work Phone: [facility] 08-19-2023 17:01-0400 Systolic blood pressure 118 mm[Hg] Renetta Aichholz Work Phone: [facility] 08-19-2023 12:21-0400 Body height 157.48 cm Renetta Aichholz Work Phone: [facility] 08-19-2023 12:21-0400 Body temperature 98.3 [degF] Renetta Aichholz Work Phone: [facility] 08-19-2023 12:21-0400 Body weight 67.4 kg Renetta Aichholz Work Phone: [facility] 06-20-2023 13:15-0500 Body height 154.9 cm Renetta Aichholz DINING ROOM ATTENDANT Work Phone: [facility] 06-20-2023 13:15-0500 Body mass index (BMI) [Ratio] 27.21 kg/m2 Renetta Aichholz DINING ROOM ATTENDANT Work Phone: [facility] 06-20-2023 13:15-0500 Body temperature 97.3 [degF] Renetta Ridley DINING ROOM ATTENDANT Work Phone: [facility] 06-20-2023 13:15-0500 Body weight 65.32 kg Renetta Villagomezz DINING ROOM ATTENDANT Work Phone: [facility] 06-20-2023 13:15-0500 Diastolic blood pressure 98 mm[Hg] Renettamike Bellamyholz DINING ROOM ATTENDANT Work Phone: [facility] 06-20-2023 13:15-0500 Heart rate 65 /min Renettamike Villagomezz DINING ROOM ATTENDANT Work Phone: [facility] 06-20-2023 13:15-0500 Respiratory rate 18 /min Renetta Villagomezz DINING ROOM ATTENDANT Work Phone: [facility] 06-20-2023 13:15-0500 SaO2% (BldA) [Mass fraction] 98 % Renetta Villagomezz DINING ROOM ATTENDANT Work Phone: [facility] 06-20-2023 13:15-0500 Systolic blood pressure 144 mm[Hg] Renetta Villagomezz DINING ROOM ATTENDANT Work Phone: [facility] 09-01-2022 11:50-0400 Diastolic blood pressure 82 mm[Hg] Christavinasher Vincent DO Work Phone: [facility] 09-01-2022 11:50-0400 Heart rate 73 /min Christopher Vincent DO Work Phone: [facility] 09-01-2022 11:50-0400 Systolic blood pressure 114 mm[Hg] Christopher Vincent DO Work Phone: [facility] 07-19-2022 14:00-0400 Diastolic blood pressure 86 mm[Hg] Yanelis French PT, DPT Work Phone: [facility] 07-19-2022 14:00-0400 Heart rate 75 /min Yanelis French PT, DPT Work Phone: [facility] 07-19-2022 14:00-0400 Systolic blood pressure 115 mm[Hg] Yanelis French PT, DPT Work Phone: [facility] 07-12-2022 10:27-0500 Body temperature 98.71 [degF] Fabien Gonzalez PA-C Work Phone: [facility] 07-12-2022 10:27-0500 Diastolic blood pressure 88 mm[Hg] Fabien Gonzalez PA-C Work Phone: [facility] 07-12-2022 10:27-0500 Heart rate 95 /min Fabien BRIONES-C Work Phone: [facility] 07-12-2022 10:27-0500 Systolic blood pressure 119 mm[Hg] Fabien BRIONES-C Work Phone: [facility] 06-28-2022 13:00-0500 Body height 157.48 cm Timmy Chavez Other [employer] Other 06-28-2022 13:00-0500 Body mass index (BMI) [Ratio] 25.24 kg/m2 Timmy Chavez Other [employer] Other 06-28-2022 13:00-0500 Body weight 62.6 kg Timmy Chavez Other [employer] Other 06-28-2022 13:00-0500 Diastolic blood pressure 79 mm[Hg] Timmy Chavez Other [employer] Other 06-28-2022 13:00-0500 Respiratory rate 16 /min Timmy Chavez Other [employer] Other 06-28-2022 13:00-0500 Systolic blood pressure 120 mm[Hg] Timmy Chavez Other [employer] Other 06-25-2022 17:15-0500 Diastolic blood pressure 97 mm[Hg] Renetta Aichholz Work Phone: [facility] 06-25-2022 17:15-0500 Heart rate 109 /min Renetta Aichholz Work Phone: [facility] 06-25-2022 17:15-0500 Respiratory rate 20 /min Renetta Aichholz Work Phone: [facility] 06-25-2022 17:15-0500 SaO2% (BldA) [Mass fraction] 98 % Renetta Aichholz Work Phone: [facility] 06-25-2022 17:15-0500 Systolic blood pressure 153 mm[Hg] Renetta Aichholz Work Phone: [facility] 06-25-2022 13:16-0500 Body height 157.48 cm Renetta Aichholz Work Phone: [facility] 06-25-2022 13:16-0500 Body temperature 99 [degF] Renetta Aichholz Work Phone: [facility] 06-25-2022 13:16-0500 Body weight 63.04 kg Renetta Aichholz Work Phone: [facility] 06-22-2022 15:13-0500 Body height 157 cm Copy Chief Work Phone: [facility] 06-22-2022 15:13-0500 Body weight 65 kg Copy Chief Work Phone: [facility] 06-22-2022 15:13-0500 Diastolic blood pressure 77 mm[Hg] Copy Chief Work Phone: [facility] 06-22-2022 15:13-0500 Heart rate 73 /min Copy Chief Work Phone: [facility] 06-22-2022 15:13-0500 Systolic blood pressure 110 mm[Hg] Copy Chief Work Phone: [facility] 06-22-2022 14:26-0500 Body height 157.5 cm Ting Camilo MD Work Phone: [facility] 06-22-2022 14:26-0500 Body temperature 97.81 [degF] Ting Camilo MD Work Phone: [facility] 06-22-2022 14:26-0500 Body weight 65.36 kg Ting Camilo MD Work Phone: [facility] 06-22-2022 14:26-0500 Diastolic blood pressure 77 mm[Hg] Ting Camilo MD Work Phone: [facility] 06-22-2022 14:26-0500 Heart rate 73 /min Ting Camilo MD Work Phone: [facility] 06-22-2022 14:26-0500 Systolic blood pressure 110 mm[Hg] Ting Camilo MD Work Phone: [facility] 05-12-2022 01:00-0500 Diastolic blood pressure 85 mm[Hg] Renetta Aichholz Work Phone: [facility] 05-12-2022 01:00-0500 Heart rate 69 /min Renetta Aichholz Work Phone: [facility] 05-12-2022 01:00-0500 Respiratory rate 18 /min Renetta Aichholz Work Phone: [facility] 05-12-2022 01:00-0500 SaO2% (BldA) [Mass fraction] 98 % Renetta Aichholz Work Phone: [facility] 05-12-2022 01:00-0500 Systolic blood pressure 192 mm[Hg] Renetta Aichholz Work Phone: [facility] 05-11-2022 21:32-0500 Body height 157.48 cm Renetta Aichholz Work Phone: [facility] 05-11-2022 21:32-0500 Body weight 65.5 kg Renetta Aichholz Work Phone: [facility] 05-11-2022 21:31-0500 Body temperature 98.1 [degF] Renetta Ridley Work Phone: [facility] 03-23-2022 13:51-0500 Body height 157.5 cm Ting Camilo MD Work Phone: [facility] 03-23-2022 13:51-0500 Body temperature 97.9 [degF] Ting Camilo MD Work Phone: [facility] 03-23-2022 13:51-0500 Body weight 68.04 kg Ting Camilo MD Work Phone: [facility] 03-23-2022 13:51-0500 Diastolic blood pressure 89 mm[Hg] Ting Camilo MD Work Phone: [facility] 03-23-2022 13:51-0500 Heart rate 87 /min Ting Camilo MD Work Phone: [facility] 03-23-2022 13:51-0500 Systolic blood pressure 124 mm[Hg] Ting Camilo MD Work Phone: [facility] 01-05-2022 11:52-0400 Body height 157.5 cm Brad Bone Jr., MD Work Phone: [facility] 01-05-2022 11:52-0400 Body weight 70.76 kg Brad Bone Jr., MD Work Phone: [facility] 09-20-2021 14:51-0400 Body height 157.5 cm Ting Camilo MD Work Phone: [facility] 09-20-2021 14:51-0400 Body temperature 97.7 [degF] Ting Camilo MD Work Phone: [facility] 09-20-2021 14:51-0400 Body weight 77.07 kg Ting Camilo MD Work Phone: [facility] 09-20-2021 14:51-0400 Diastolic blood pressure 85 mm[Hg] Ting Camilo MD Work Phone: [facility] 09-20-2021 14:51-0400 Heart rate 90 /min Ting Camilo MD Work Phone: [facility] 09-20-2021 14:51-0400 Systolic blood pressure 129 mm[Hg] Ting Camilo MD Work Phone: [facility] 09-09-2021 13:23-0400 Body height 157.5 cm Vik Sutherland MD Work Phone: [facility] 09-09-2021 13:23-0400 Body weight 74.84 kg Vik Sutherland MD Work Phone: [facility] 09-09-2021 13:23-0400 Diastolic blood pressure 70 mm[Hg] Vik Sutherland MD Work Phone: [facility] 09-09-2021 13:23-0400 Heart rate 96 /min Vik Sutherland MD Work Phone: [facility] 09-09-2021 13:23-0400 Systolic blood pressure 102 mm[Hg] Vik Sutherland MD Work Phone: [facility] 08-10-2021 13:53-0400 Body weight 74.39 kg Mikey Palomo MD Work Phone: [facility] 08-10-2021 13:53-0400 Diastolic blood pressure 82 mm[Hg] Mikey Palomo MD Work Phone: [facility] 08-10-2021 13:53-0400 Systolic blood pressure 155 mm[Hg] Mikey Palomo MD Work Phone: [facility] Encounters Encounter Date Encounter Type Care Provider Facility Start: 01-23-2024 End: 01-23-2024 ambulatory RENETTA KHAI Not Available Start: 09-07-2023 End: 09-07-2023 ambulatory MIKEY WARE [facility] Ambulatory Start: 09-07-2023 End: 09-07-2023 Office outpatient new 45 minutes Mikey Ware MD Work Phone: [facility] Comment on above: Peripheral vascular disease, unspecified (CMS-HCC) (Primary Dx) Start: 08-28-2023 End: 08-28-2023 ambulatory RENETTA AICHHOLZ Not Available Start: 08-19-2023 End: 08-19-2023 Emergency department patient visit Jose Sofia Facility:[facility] Start: 08-19-2023 End: 08-19-2023 Emergency department patient visit Renetta Ridley Work Phone: [facility] Work Phone: Start: 07-23-2023 End: 07-23-2023 ambulatory RENETTA BELLAMYHOLZ Not Available Start: 06-20-2023 Bamboo flowsheet Renetta Ridley DINING ROOM ATTENDANT Work Phone: [facility] Start: 06-20-2023 Bamboo flowsheet Renetta Ridley DINING ROOM ATTENDANT Work Phone: [facility] Start: 06-20-2023 Clinisync Result Encounter Renetta Ridley DINING ROOM ATTENDANT Work Phone: [facility] Unsolicited Start: 06-20-2023 End: 06-20-2023 Office outpatient visit 25 minutes Renetta Ridley DINING ROOM ATTENDANT Work Phone: [facility] Comment on [...] Start: 09-01-2022 End: 09-01-2022 ambulatory KARTHIK ZARATE Facility:[facility] Start: 09-01-2022 End: 09-01-2022 Patient encounter procedure Karthik Zarate DO Work Phone: Neurology Comment on above: Dizziness (Primary D x); Arachnoid cyst Start: 08-07-2022 Orders Only Ting Camilo MD Work Phone: [facility] Start: 07-27-2022 End: 07-27-2022 ambulatory Isha Smith PT Work Phone: Physical Therapy Comment on above: Dizziness (Primary D x); Cervicalgia; Balance problem Start: 07-26-2022 End: 07-26-2022 [facility] Start: 07-26-2022 End: 07-26-2022 Patient encounter procedure Carmenmike Lombardi AUD Work Phone: Audiology Comment on above: Lightheadedness (Mariann rohit Dx) Start: 07-24-2022 Refill Ting Camilo MD Work Phone: [facility] Start: 07-21-2022 End: 07-21-2022 ambulatory TING CAMILO Facility:[facility] Start: 07-19-2022 End: 07-19-2022 ambulatory Valentina Johnson, CCC-A Work Phone: Audiology Comment on above: Hearing Aids Dizziness (Primary D x); Lightheadedness Start: 07-19-2022 E-mail encounter fro m caregiver Valentina Johnson, CCC-A Work Phone: JONATHAN KIKA [facility] Start: 07-13-2022 End: 07-14-2022 ambulatory QUINTEN RENETTA REJISethCELSO Facility: Start: 07-12-2022 End: 07-12-2022 [...] 07-11-2022 End: 07-11-2022 ambulatory Timmy Chavez Other [employer] Other Start: 07-11-2022 Telephone encounter Timmy [facility] Start: 07-04-2022 Orders Only Ting Camilo MD Work Phone: [facility] Comment on above: Essential hypertensi on (Primary Dx) Results Start: 06-29-2022 End: 06-29-2022 ambulatory Robert Gramajo MD Work Phone: [facility] Start: 06-29-2022 Patient encounter procedure Robert Gramajo MD Work Phone: [facility] Start: 06-29-2022 Telephone encounter Timmy [facility] Start: 06-28-2022 End: 06-28-2022 ambulatory Timmy Chavez Other [employer] Other Start: 06-28-2022 Patient encounter procedure Timmy BOJORQUEZ [facility] Start: 06-27-2022 Orders Only Ting Camilo MD Work Phone: [facility] Comment on above: Abnormal EKG (Primar y Dx) Start: 06-25-2022 End: 06-25-2022 Emergency department patient visit Renetta Bellamytodddagoberto Work Phone: [facility] Work Phone: Start: 06-22-2022 End: 06-22-2022 Patient encounter procedure Ting Camilo MD Work Phone: [facility] Comment on above: Essential hypertensi on (Primary Dx); Renal artery stenosis (HCC); Tachycardia Hypotension, unspeci fied hypotension type (Primary Dx) Start: 06-22-2022 End: 06-23-2022 ambulatory Ting Camilo MD Work Phone: [facility] Start: 06-14-2022 Orders Only Ting Camilo MD Work Phone: [facility] Comment on above: Essential hypertensi on (Primary Dx); Hypotension, unspecified hypotension type Start: 06-01-2022 End: 06-02-2022 ambulatory RENETTA RIDLEY Facility:[facility] Start: 05-30-2022 End: 05-31-2022 Orders Only Ting Camilo MD Work Phone: [facility] Comment on above: Essential hypertensi on (Primary Dx) Start: 05-18-2022 End: 05-19-2022 [facility] Start: 05-15-2022 Orders Only Ting Camilo MD Work Phone: [facility] Comment on above: Essential hypertensi on (Primary Dx) Start: 05-12-2022 Orders Only Ting Camilo MD Work Phone: [facility] Start: 05-11-2022 End: 05-12-2022 Emergency department patient visit Renetta Ridley Work Phone: [facility] Work Phone: Start: 05-09-2022 Orders Only Ting Camilo MD Work Phone: [facility] Comment on above: Essential hypertensi on (Primary Dx) Start: 05-04-2022 End: 05-04-2022 ambulatory [facility] Start: 05-03-2022 End: 05-03-2022 ambulatory [facility] Start: 03-23-2022 End: 03-24-2022 Orders Only [...] 01-05-2022 End: 01-05-2022 ambulatory RENETTA HAWTHORNE REJISethTODDDagoberto Facility:[facility] Start: 01-05-2022 End: 01-05-2022 Patient encounter procedure Brad Bone MD Work Phone: General Surgery Comment on above: Nausea and vomiting, unspecified vomiting type (Primary Dx); Bloating; Other constipation Start: 12-28-2021 Telephone encounter Meliza Dobbins RN Work Phone: General Surgery Comment on above: 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 Start: 12-16-2021 End: 12-17-2021 [...] Start: 2021 End: 2021 ambulatory MIKEY PALOMO Facility:[facility] Start: 2021 End: 2021 [facility] Mikey Palomo MD Work Phone: Pain Management Comment on above: Neuralgia and neurit is (Primary Dx); CAD, multiple vessel; RAJESH (generalized anxiety disorder) Start: 09-22-2021 End: 09-23-2021 ambulatory QUINTEN ESCOBAR REJISethCELSO Facility:[facility] Start: 09-20-2021 End: 09-21-2021 ambulatory TING CAMILO Facility:[facility] Start: 09-20-2021 End: 09-20-2021 Patient encounter procedure Ting Camilo MD Work Phone: [facility] Comment on above: Renal artery stenosi s (HCC) (Primary Dx); Essential hypertension Start: 09-09-2021 End: 09-09-2021 ambulatory VIK SUTHERLAND Facility:[facility] Start: 09-09-2021 End: 09-09-2021 Patient encounter procedure Vik Sutherland MD Work Phone: Cardiology Comment on above: Essential hypertensi on (Primary Dx); Dizziness; Dyspnea on exertion; PVD (peripheral vascular disease) (HCC) Start: 08-29-2021 End: 08-30-2021 ambulatory MAGNAFLUX OPERATOR RENETTA RIDLEY Facility:[facility] Start: 08-16-2021 End: 08-16-2021 ambulatory MAGNAFLUX OPERATOR [facility] Facility:[facility] Start: 08-12-2021 End: 08-12-2021 Subsequent hospital visit by physician Bone Density [facility] Work Phone: [facility] Radiology Bone Density Comment on [...] 04-28-2021 Subsequent hospital visit by physician Ct [facility] Radha Work Phone: Radiology Comment on above: Renovascular hyperte nsion [I15.0] Start: 01-07-2020 End: 01-07-2020 Subsequent hospital visit by physician Ct [facility] Radha Work Phone: Radiology Comment on above: 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] Procedures Date Procedure Procedure Detail Performing Clinician Start: 08-19-2023 Computed tomography of abdomen and pelvis with contrast Renetta Bellamycelso Work Phone: Start: 06-20-2023 TB MICROALB CREAT R ATIO RANDOM Renetta Bellamycelso DINING ROOM ATTENDANT Work Phone: Start: 07-13-2022 Mammography Renetta Josesitoseth jenny DINING ROOM ATTENDANT Work Phone: Start: 06-25-2022 Computed tomography of abdomen and pelvis with contrast Renetta Bellamycelso Work Phone: Start: 06-22-2022 Urnls dip stick/tabl et rgnt auto w/o microscopy Bulk Order Provider Start: 05-11-2022 CT angiography of head Renetta Khai Work Phone: Start: 05-11-2022 CT angiography of ne ck vessels Renetta Khai Work Phone: Start: 05-11-2022 CT of head [...] Work Phone: Start: 04-06-2020 Colonoscopy Renetta alvarado DINING ROOM ATTENDANT Work Phone: Start: 01-07-2020 Ct angiography head w/contrast/noncontrast Elliott Salazar MD Work Phone: Start: 01-07-2020 Ct angiography neck w/contrast/noncontrast Elliott Salazar MD Work Phone: Plan of Treatment Date Care Activity Detail Author Start: 04-06-2030 Screening for malignant neoplasm of colon [facility] Start: 03-16-2026 LIPID SCREEN LIPID SCREEN [facility] Start: 09-06-2024 End: 09-06-2025 Vascular US Ankle Brachial Index (DALTON) Without Exercise Vascular US Ankle Brachial Index (DALTON) Without Exercise Vascular Ultrasound Routine Peripheral vascular disease, unspecified ([facility]-H[facility]) Expected: 09/06/2024 (Approximate), Expires: 09/06/2025 [facility] Work Phone: Comment on above: Expected: 09/06/2024 (Approximate), Expi res: 09/06/2025 Start: 03-16-2024 DIABETES SCREEN DIABETES SCREEN [facility] Start: 01-06-2024 Influenza vaccination Influenza Vaccine (Season Ended) [facility] Start: 09-07-2023 End: 09-06-2025 US.doppler Carotid arteries - bilateral Vascular US carotid artery duplex bilateral Vascular Ultrasound Routine Peripheral vascular disease, unspecified ([facility]) Expected: 09/07/2023 (Approximate), Expires: 09/06/2025 [facility] Work Phone: Comment on above: Expected: 09/07/2023 (Approximate), Expi res: 09/06/2025 Start: 09-07-2023 End: 09-06-2025 Vascular US upper PVR Vascular US upper PVR Vascular Ultrasound Routine Peripheral vascular disease, unspecified ([facility]) Expected: 09/07/2023 (Approximate), Expires: 09/06/2025 [facility] Service [facility] Work Phone: Comment on above: Expected: 09/07/2023 (Approximate), Expi res: 09/06/2025 Start: 07-23-2023 End: 07-23-2023 Patient encounter procedure 07/23/2023 1:00 PM EDT Office Visit SHERRELL SHAFFER [address] [place] [address] Renetta Ridley NP [address] [place] [address] [facility] Start: 07-19-2023 End: 08-18-2024 MG Breast - bilateral Screening Bilateral screening mammogram Imaging Routine Encounter for screening mammogram for malignant neoplasm of breast Expected: 07/19/2023 (Approximate), Expires: 08/18/2024 [facility] Work Phone: Comment on above: Expected: 07/19/2023 (Approximate), Expi res: 08/18/2024 Start: 07-14-2023 Screening for malignant neoplasm of breast Mammogram [facility] Start: 06-22-2023 BP CONTROLLED (<130/80) BP CONTROLLED (<130/80) [facility] Start: 06-20-2023 End: 06-20-2024 25-hydroxyvitamin D3 [Mass/volume] in Serum or Plasma Vitamin D 25 hydroxy Lab Routine Vitamin D insufficiency Expected: 06/20/2023 (Approximate), Expires: 06/20/2024 [facility] Comment on above: Expected: 06/20/2023 (Approximate), Expi res: 06/20/2024 Start: 06-20-2023 End: 06-20-2024 CBC W Auto Differential panel - Blood CBC and differential Lab Routine Gastroesophageal reflux disease with esophagitis, unspecified whether hemorrhage Expected: 06/20/2023 (Approximate), Expires: 06/20/2024 [facility] Comment on above: Expected: 06/20/2023 (Approximate), Expi res: 06/20/2024 Start: 06-20-2023 End: 06-20-2024 Comprehensive metabolic 2000 panel - Serum or Plasma Comprehensive metabolic panel Lab Routine Hyperlipemia, mixed (CMS/HCC) Vitamin D insufficiency Hypothyroidism, adult (CMS/HCC) Gastroesophageal reflux disease with esophagitis, unspecified whether hemorrhage Hypertension, essential (CMS/HCC) PVD (peripheral vascular disease) (CMS/HCC) Expected: 06/20/2023 (Approximate), Expires: 06/20/2024 [facility] Comment on above: Expected: 06/20/2023 (Approximate), Expi res: 06/20/2024 Start: 06-20-2023 End: 06-20-2024 Lipid 1996 panel - Serum or Plasma Lipid panel Lab Routine Hyperlipemia, mixed (CMS/HCC) Expected: 06/20/2023 (Approximate), Expires: 06/20/2024 [facility] Comment on above: Expected: 06/20/2023 (Approximate), Expi res: 06/20/2024 Start: 06-20-2023 End: 06-20-2024 Microalbumin/Creatinine panel in random Urine Microalbumin / creatinine, urine ratio Lab Routine Hypertension, essential ([facility]/HCC) Expected: 06/20/2023 (Approximate), Expires: 06/20/2024 [facility] Comment on above: Expected: 06/20/2023 (Approximate), Expi res: 06/20/2024 Start: 06-20-2023 End: 06-20-2024 Thyrotropin [Units/volume] in Serum or Plasma TSH Lab Routine Hypothyroidism, adult ([facility]) Expected: 06/20/2023 (Approximate), Expires: 06/20/2024 [facility] Comment on above: Expected: 06/20/2023 (Approximate), Expi res: 06/20/2024 Start: 06-20-2023 End: 06-20-2024 Thyroxine (T4) free [Mass/volume] in Serum or Plasma T4, free Lab Routine Hypothyroidism, adult ([facility]) Expected: 06/20/2023 (Approximate), Expires: 06/20/2024 [facility] Comment on above: Expected: 06/20/2023 (Approximate), Expi res: 06/20/2024 Start: 06-20-2023 End: 06-20-2024 Urinalysis complete panel - Urine Urinalysis with reflex microscopic (clean catch) Lab Routine Hypertension, essential ([facility]) Expected: 06/20/2023 (Approximate), Expires: 06/20/2024 [facility] Comment on above: Expected: 06/20/2023 (Approximate), Expi res: 06/20/2024 Start: 06-20-2023 End: 06-20-2023 Patient encounter procedure 06/20/2023 1:20 PM EST Office Visit [facility] [address] [place] [address] Renetta Ridley NP [address] [place] [address] Encounter for screening mammogram for malignant neoplasm [...] Vaccine ( season) COVID-19 Vaccine ( season) [facility] Start: 01-05-2023 Influenza vaccination [facility] Start: 2022 SHINGRIX VACCINE (1 of 2) SHINGRIX VACCINE (1 of 2) [facility] Start: 2022 Zoster Vaccines (1 of 2) Zoster Vaccines (1 of 2) [facility] Start: 09-09-2022 BP CONTROLLED (<130/80) BP CONTROLLED (<130/80) [facility] Start: 09-04-2022 End: 04-22-2023 US KIDNEY/BLADDER US KIDNEY/BLADDER Radiology Routine Kidney cyst, acquired Expected: 09/04/2022, Expires: 04/22/2023 [facility] Work Phone: Comment on above: Expected: 09/04/2022, Expires: Start: 06-10-2022 Adult depression screening assessment DEPRESSION SCREENING [facility] Start: 05-15-2022 End: 07-15-2022 Aldosterone [Mass/volume] in Serum or Plasma ALDOSTERONE BLD Lab Routine Essential hypertension Expected: 05/15/2022, Expires: 07/15/2022 [facility] Work Phone: Comment on above: Expected: 05/15/2022, Expires: 3 Start: 05-15-2022 End: 07-15-2022 Catecholamines 3 panel [Mass/volume] - Plasma CATECHOLAMINES FRA Lab Routine Essential hypertension Expected: 05/15/2022, Expires: 07/15/2022 [facility] Work Phone: Comment on above: Expected: 05/15/2022, Expires: 3 Start: 05-15-2022 End: 07-15-2022 DIRECT RENIN PLASMA DIRECT RENIN PLASMA Lab Routine Essential hypertension Expected: 05/15/2022, Expires: 07/15/2022 [facility] Work Phone: Comment on above: Expected: 05/15/2022, Expires: 3 Start: 05-15-2022 End: 07-15-2022 METANEPHRINES, FREE PLASMA METANEPHRINES, FREE PLASMA Lab Routine Essential hypertension Expected: 05/15/2022, Expires: 07/15/2022 [facility] Work Phone: Comment on above: Expected: 05/15/2022, Expires: 3 Start: 05-15-2022 End: 07-15-2022 Renal function 2000 panel - Serum or Plasma RENAL FUNCTION PANEL Lab Routine Essential hypertension Expected: 05/15/2022, Expires: 07/15/2022 [facility] Work Phone: Comment on above: Expected: 05/15/2022, Expires: 3 Start: 05-07-2022 DEPRESSION ASSESSMENT DEPRESSION ASSESSMENT [facility] Start: 03-16-2022 Hepatitis B surface antibody level LDL CHOLESTEROL [facility] Start: 01-05-2022 Influenza vaccination [facility] Start: 09-09-2021 End: 09-09-2022 ECG COMPLETE ECG COMPLETE ECG Routine Essential hypertension Dizziness Dyspnea on exertion PVD (peripheral vascular disease) (HCC) Expected: 09/09/2021, Expires: 09/09/2022 [facility] Work Phone: Comment on above: Expected: 09/09/2021, Expires: 3 Start: 05-07-2021 DEPRESSION ASSESSMENT DEPRESSION ASSESSMENT [facility] Start: 2017 COLOGUARD (FIT-DNA) COLOGUARD (FIT-DNA) [facility] Start: 2017 Colonoscopy COLONOSCOPY [facility] Start: 2017 COLORECTAL CANCER SCREENING COLORECTAL CANCER SCREENING [facility] Start: [address] COLONOGRAPHY [facility] Start: 2017 FECAL OCCULT BLOOD FECAL OCCULT BLOOD [facility] Start: 2017 SIGMOIDOSCOPY SIGMOIDOSCOPY [facility] Start: 2012 Mammography MAMMOGRAM [facility] Start: 2012 Screening for malignant neoplasm of breast Mammogram [facility] Start: 2002 HPV TESTING HPV TESTING [facility] Start: 12-26-1997 DTaP/Tdap/Td Vaccines (1 - Tdap) DTaP/Tdap/Td Vaccines (1 - Tdap) [facility] Start: 1993 PAP TESTING PAP TESTING [facility] Start: 1993 Screening for malignant neoplasm of cervix [facility] Start: 10-19-1991 Urine microalbumin profile DTAP,TDAP,TD (1 - Tdap) [facility] Start: 1990 ANNUAL PCP TEAM CHRONIC DISEASE VISIT ANNUAL PCP TEAM CHRONIC DISEASE VISIT [facility] Start: 1990 BP CONTROLLED (<130/80) BP CONTROLLED (<130/80) [facility] Start: 1990 Diabetes mellitus screening Diabetes Screening [facility] Start: 1990 Hepatitis C screening Hepatitis C Screening [facility] Start: 1977 COVID-19 VACCINE (#1) COVID-19 VACCINE (#1) [facility] Start: 1977 COVID-19 VACCINE (1) COVID-19 VACCINE (1) [facility] Start: 04-19-1973 COVID-19 VACCINE (#1) COVID-19 VACCINE (#1) [facility] Start: 1972 HEPATITIS B (1 of 3 - 3-dose series) HEPATITIS B (1 of 3 - 3-dose series) [facility] Start: 1972 HIV screening HIV Screening [facility] Start: 1972 Lipid panel Lipid Panel [facility] Start: 1972 Screening for malignant neoplasm of colon [facility] Start: 1972 Yearly Adult Physical Yearly Adult Physical [facility] Ambulatory bp mntr w /sw 24 hr+ rec scan nicholas i&r AMBULATORY BP MONITORING Cardiology Routine Hypotension, unspecified hypotension type Ordered: 06/14/2022 [facility] Work Phone: Comment on above: Ordered: 06/14/2022 CATECHOLAMINES FRACTIONATED, URINE FREE CATECHOLAMINES FRACTIONATED, URINE FREE Lab Routine Essential hypertension Ordered: 05/30/2022 [facility] Work Phone: Comment on above: Ordered: 05/30/2022 CREATININE 24 HR UR CREATININE 2 4 HR UR Lab Routine Essential hypertension Ordered: 05/30/2022 [facility] Work Phone: Comment on above: Ordered: 05/30/2022 End: 09-09-2022 Dxa bone density study 1/> sites axial skel DXA-AXIAL SKELETON Radiology Routine Atherosclerosis Bilateral carotid artery stenosis Hiatal hernia Renal artery stenosis (HCC) RAJESH (generalized anxiety disorder) CAD, multiple vessel Neuralgia and neuritis 1 Occurrences starting 08/10/2021 until 09/09/2022 [facility] Work Phone: Comment on above: 1 Occurrences starting 08/10/2021 until 09/09/2022 ECG COMPLETE ECG COMPLETE ECG Routine Tachycardia 06/22/2022 4:[address] [facility] Work Phone: End: 06-27-2023 Echocardiography ECHO Cardiology Routine Abnormal EKG 1 Occurrences starting 06/27/2022 until 06/27/2023 [facility] Work Phone: Comment on above: 1 Occurrences starting 06/27/2022 until 06/27/2023 METANEPHRINES 24H UR METANEPHRIN ES 24H UR Lab Routine Essential hypertension Ordered: 05/30/2022 [facility] Work Phone: Comment on above: Ordered: 05/30/2022 Patient Education [facility] Work Phone: Patient referral [facility] Work Phone: PT PLAN OF CARE CERTIFICATION PT PLAN OF CARE CERTIFICATION Procedures Routine Dizziness Lightheadedness Ordered: 07/19/2022 [facility] Work Phone: Comment on above: Ordered: 07/19/2022 End: 03-23-2023 PVR LEG [facility] PVR LEG [facility] Vascular Lab Routine Peripheral arterial disease (HCC) 1 Occurrences starting 03/23/2022 until 03/23/2023 [facility] Work Phone: Comment on above: 1 Occurrences starting 03/23/2022 until 03/23/2023 URINALYSIS, REFLEX MICROSCOPIC URINALYSIS, REFLEX MICROSCOPIC Lab Routine Screening for genitourinary condition Ordered: 03/23/2022 [facility] Work Phone: Comment on above: Ordered: 03/23/2022 End: 03-22-2023 US ABD AORTA COMPLETE VAS LAB US ABD AORTA COMPLETE VAS LAB Vascular Lab Routine PVD (peripheral vascular disease) (HCC) Renal artery stenosis ([facility]) Atherosclerosis 1 Occurrences starting 03/22/2022 until 03/22/2023 [facility] Work Phone: Comment on above: 1 Occurrences starting 03/22/2022 until 03/22/2023 End: 03-23-2023 US ABD AORTA COMPLETE VAS LAB US ABD AORTA COMPLETE VAS LAB Vascular Lab Routine Abdominal aortic aneurysm (AAA) without rupture, unspecified part NANCY (renal artery stenosis) ([facility]) Carotid stenosis, asymptomatic, bilateral 1 Occurrences starting 03/23/2022 until 03/23/2023 [facility] Work Phone: Comment on above: 1 Occurrences starting 03/23/2022 until 03/23/2023 End: 03-22-2023 US CAROTID ARTERIES [facility] US CAROTID ARTERIES [facility] Vascular Lab Routine Bilateral carotid artery stenosis 1 Occurrences starting 03/22/2022 until 03/22/2023 [facility] Work Phone: Comment on above: 1 Occurrences starting 03/22/2022 until 03/22/2023 End: 03-23-2023 US CAROTID ARTERIES [facility] US CAROTID ARTERIES [facility] Vascular Lab Routine Carotid stenosis, asymptomatic, bilateral 1 Occurrences starting 03/23/2022 until 03/23/2023 [facility] Work Phone: Comment on above: 1 Occurrences starting 03/23/2022 until 03/23/2023 End: 03-22-2023 US RENAL ARTERY [facility] US RENAL ARTERY [facility] Vascular Lab Routine Renal artery stenosis (HCC) 1 Occurrences starting 03/22/2022 until 03/22/2023 [facility] Work Phone: Comment on above: 1 Occurrences starting 03/22/2022 until 03/22/2023 End: 03-23-2023 US RENAL ARTERY [facility] US RENAL ARTERY [facility] Vascular Lab Routine NANCY (renal artery stenosis) (HCC) 1 Occurrences starting 03/23/2022 until 03/23/2023 [facility] Work Phone: Comment on above: 1 Occurrences starting 03/23/2022 until 03/23/2023 [facility] Immunizations Immunization Date Immunization Notes Care Provider Nadir [facility] 03-05-2009 novel [id number], preservative-free, injectable Renetta Aichholz DINING ROOM ATTENDANT Work Phone: [facility] 03-05-2009 influenza virus vaccine, unspecified formulation Mikey Ware MD Work Phone: [facility] Work Phone: 07-09-1998 hepatitis B vaccine, adult dosage Renetta Aichholz DINING ROOM ATTENDANT Work Phone: [facility] 02-01-1998 hepatitis B vaccine, adult dosage Renetta Aichholz DINING ROOM ATTENDANT Work Phone: [facility] 01-01-1998 measles, mumps and rubella virus vaccine Renetta Aichholz DINING ROOM ATTENDANT Work Phone: [facility] 12-28-1997 hepatitis B vaccine, adult dosage Renetta Aichholz DINING ROOM ATTENDANT Work Phone: [facility] 12-25-1997 TD(adult) unspecifie d formulation Renetta Bellamycelso DINING ROOM ATTENDANT Work Phone: [facility] Payers Date Payer Category Payer Self-pay [id number] 2022 Medicare MEDICARE MEDICAR E A [id number] 2022-Present [phone] [address] [place] [address] Medicare [id number] 2020 Unknown [employer] BLUE CARD PPO OOS [id number] 2020-Present [phone] [address] [place] [address] PPO [id number] 2019 Unknown [id number] 1972 Unknown [id number] [id number] 1972 Unknown [id number] 2.16.840.1.294971.3.579.2.593 1972 Unknown [id number] 2.16.840.1.537436.3.579.2.593 1972 Unknown [id number] 2.16.840.1.813843.3.579.2.593 1972 Unknown [id number] 2.16.840.1.186588.3.579.2.593 1972 Unknown [id number] 2.16.840.1.069818.3.579.2.593 1972 Unknown [id number] 2.16.840.1.350581.3.579.2.593 1972 Unknown [id number] 2.16.840.1.463432.3.579.2.593 1972 Unknown [id number] 2.16.840.1.539660.3.579.2.593 1972 Unknown [id number] 2.16.840.1.649656.3.579.2.593 1972 Unknown [id number] 2.16.840.1.493959.3.579.2.593 1972 Unknown [id number] 2.16.840.1.860925.3.579.2.1244 1972 Unknown [id number] 2.16.840.1.766515.3.579.2.1259 1972 Unknown [id number] 2.16.840.1.967058.3.579.2.1259 1972 Unknown [id number] 2.16.840.1.337360.3.579.2.1259 1972 Unknown [id number] 2.16.840.1.671693.3.579.2.1259 1959 Unknown [id number] Medicare Medicare- Part A Only [id number] Unknown [facility] [id number] Unknown [id number] Social History Date Type Detail Facility Start: 04-21-2019 End: 08-19-2023 Tobacco smoking status NHIS Ex-smoker [facility] End: 12-22-2018 History of tobacco use Current smoker [facility] Start: 04-21-2019 End: 06-20-2023 Cigarettes smoked current (pack per day) - Reported 0.5 [facility] Start: 04-21-2019 End: 09-07-2023 Tobacco use and exposure Smokeless tobacco non-user [facility] Start: 08-10-2021 End: 06-20-2023 Alcohol intake Ex-drinker (finding) [facility] Start: 1970 Sex Assigned At Female [facility] Start: 12-07-2019 End: 09-07-2023 Exposure to SARS-CoV-2 (event) Not sure [facility] End: 12-22-2018 History of tobacco use Cigarette Smoker [facility] Start: 04-07-2021 End: 06-20-2023 Sex Assigned At [facility] Adult Depression Screening Assessment 5 [facility] Start: 03-13-2021 Gender identity Identifies as female gender (finding) [facility] Start: 03-13-2021 Sexual orientation Heterosexual (fin ding) [facility] Start: 12-04-2019 Alcohol intake Current drinke r of alcohol (finding) [facility] Tobacco smoking status NJIS Tobacco smoking consumption unknown [facility] Start: 1970 Sex Assigned At Not on file [facility] Start: 06-20-2023 End: 09-07-2023 Tobacco smoking status NJIS Never smoked tobacco [facility] Start: 06-20-2023 Alcohol Comment caffine: once weekly [facility] NEGATED: Highlighted row [facility] NEGATED: Highlighted rowStart: SEANF History of tobacco use Passive smoker [facility] Work Phone: Medical Equipment Procedure Code Equipment Code Equipment Origin al Text Equipment Identifier Dates Multiple periphe ral artery stent, [id number] biliary stent [id number] FDA Start: 03-04-2019 Bare-metal carot id artery stent ()[id number] FDA Start: 03-04-2019 Clinical Notes 01-07-2020 to [...] She has not had a stroke or TN. She said she had convulsions after her [...] Use: Not At Risk (07/16/2023) Received from [facility] AUDIT-C Frequency of Alcohol Consumption: Never Average Number of Drinks: Patient does not drink Frequency of Binge Drinking: Never Financial Resource Strain: Low Risk (07/16/2023) Received from [facility] Overall Financial Resource Strain (CARDIA) Difficulty of Paying Living Expenses: Not very hard Food Insecurity: No Food Insecurity (07/16/2023) Received from [facility] Hunger Vital Sign Worried About Running Out of Food in the Last Year: Never true Ran Out of Food in the Last Year: Never true Transportation Needs: No Transportation Needs (07/16/2023) Received from [facility] PRAPARE - Transportation Lack of Transportation (Medical): No Lack of Transportation (Non-Medical): No Physical Activity: Not on file Stress: Stress Concern Present (07/16/2023) Received from [facility] [place] of Occupational Health - Occupational Stress Questionnaire Feeling of Stress : Very much Social Connections: Socially Isolated (07/16/2023) Received from [facility] Social Connection and Isolation Panel [NHANES] Frequency of Communication with Friends and Family: Once a week Frequency of Social Gatherings with Friends and Family: Once a week Attends Scientologist Services: Never Active Member of Clubs or Organizations: No Attends Club or Organization Meetings: Never Marital Status: Intimate Partner Violence: Not on file Depression: Not at risk (08/28/2023) Received from [facility] PHQ-2 Patient Health Questionnaire-2 Score: 2 Housing Stability: Low Risk (07/16/2023) Received from [facility] Housing Stability Vital Sign Unable to Pay [...] Mikey Ware M.D. documented in this encounter [facility] Work Phone: 06-20-2023 History of Present [...] panel Vitamin D 25 hydroxy Hypothyroidism, adult ([facility]/HCC) Relevant Orders Comprehensive metabolic panel TSH T4, free Hyperlipemia, mixed ([facility]) Relevant Orders Comprehensive metabolic panel Lipid panel Generalized anxiety disorder with panic attacks ([facility]) Will refer to new psychiatrist 1 month only of xanax to take prn anxiety Whatever psych provider orders for treatment is what pt will need to use, I will not continue xanax OARRS reviewed Relevant Medications ALPRAZolam (Xanax) 0.5 MG tablet Other Relevant Orders Ambulatory referral to Behavioral Health PVD (peripheral vascular disease) ([facility]) Hx of this, no statin Will recheck lipids Relevant Orders Comprehensive metabolic panel Encounter for screening mammogram for malignant neoplasm of breast - Primary Relevant Orders Bilateral screening mammogram BMI 27.0-27.9,adult documented in this encounter [facility] 12-15-2022 Evaluation note Diagnosis Renovascular hypertension Secondary renovascular hypertension, unspecified Chronic renal failure, stage 3a (HCC) documented in this encounter [facility]04-28-2023 NoteHNO ID: [id number] Author: Karthik Zarate, DO Service: ? Author Type: Physician Type: Progress Notes Filed: 09/02/2022 12:40 PM Note Text: [facility] Neurologic [place] New Patient Consultation to this clinic, previously [...] 7.50 Types: Cigarettes Quit date: 12/22/2018 Years [facility] (more content not included)...[facility]04-28-2023 History of Present illness Narrative* Karthik Zarate, DO - 09/01/2022 11:50 AM EDT [facility] Neurolog[facility] [place] New Patient Consultation to this clinic, previously [...] in the posterior fossa, best seen on sagittal/academic intern images. MRI Report - Impression Only MRI BRAIN W IVCON (CALL BACK) Exam End: 02/03/2020 4:24 PM (Final result) Impression: IMPRESSION: No acute findings or abnormal intracranial enhancement, specifically no evidence of an acute infarct. No perfusion abnormality. Oracle Obiee Developer: PSCB Transcribe Date/Time: Feb 03 2020 4:25P [...] 4. Discussed and reviewed brain images from [id number] (what was available) and note no changes [...] Sincerely, Karthik Zarate D.O. documented in this encounterUniversity Hospitals [facility]03-23-2023 NoteHNO ID: [id number] Author: Isha Ashwin PT Service: ? Author [...] Planned: 3 Planned Treatment Interventions: Therapeutic exercise (66356), Neuromuscular re-education (30325), Manual therapy (66707), Therapeutic activities (59788), Self-[place] health [place] facility management (03910), Patient/Family/Caregiver Education, Canalith Repositioning Maneuvers (39984) PLAN FOR NEXT VISIT: Assess response to [...] exercise technique and purpose for exercises. Patient Self-Long-Term Management: 1: Vestibular Battery results education Skilled [...] Treatment Minutes: 45 (more content not included)... [facility]03-23-2023 History of Present illness Narrative* Isha Smith, [...] Planned: 3 Planned Treatment Interventions: Therapeutic exercise (46624), Neuromuscular re- education (11605), Manual therapy (40028), Therapeutic activities (51921), Self- [place] management (07492), Patient/Family/Caregiver Education, Canalith Repositioning Maneuvers (33750) PLAN FOR NEXT VISIT: Assess response to [...] exercise technique and purpose for exercises. Patient Self-Long-Term Management: 1: Vestibular Battery results education Skilled [...] 53 Isha Smith PT documented in this encounterUniversity Hospitals [facility]03-22-2023 NoteHNO ID: [id number] Author: WESTON Reza Service: ? Author Type: Cnc Mill Set Up Operator Type: Progress Notes Filed: 07/26/2022 3:59 PM Note Text: [facility] [place] [place] Vestibular and Balance Disorders Laboratory Vestibular Test Battery Report Name: Regla Prajapati [facility]#: [id number] Date of Service: 07/26/2022 Date of : 1970 Age: [age] year old Referred by: Fabien Gonzalez PA-C And is a patient of Renetta Ridley CNP, QUINTEN Referred for: Evaluation of suspected change in hearing, tinnitus, or balance. Referral documented: In an order in [facility] Pretest Instructions: The following pretest instructions [...] on 07/19/2022: Regla Prajapati presents with chief (more content not included)...[facility]03-22-2023 Instructions* Patient Instructions* Carmen Lombardi, WESTON - 07/26/2022 2:16 PM EDT [facility] [place] Vestibular and Balance Laboratory For the body [...] you experience a fall. documented in this encounterUniversity Hospitals [facility]03-22-2023 History of Present illness Narrative* WESTON Reza - 07/26/2022 12:30 PM EDT [facility] [place] Vestibular and Balance Disorders Laboratory Vestibular Test Battery Report Name: Regla Prajapati [facility]#: [id number] Date of Service: 07/26/2022 Date of : 1970 Age: [age] year old Referred by: Fabien Gonzalez PA-C And is a patient of Renetta Ridley CNP, QUINTEN Referred for: Evaluation of suspected change in hearing, tinnitus, or balance. Referral documented: In an order in [facility] Pretest Instructions: The following pretest instructions [...] memory loss Diagnosed with migraines or headaches: Cover Seamer migraines or headaches: No Recent head or [...] vertical, oblique): normal Cover uncover test: normal Ndkqq-altat-hhnms test: normal Convergence test: normal NECK: Cervical [...] VESTIBULAR MEASURES: Videonystagmography Examination (VNG): CPT codes: 82776, 14998, 86315, 87832. Description of Procedure: objective assessment of peripheral [...] none. Temporal profile: n/a. Symptoms: none. Nystagmus [place] right ear return to sit position: none. Temporal profile: n/a. Symptoms: slight nausea. Nystagmus Jah-Hallpike left ear down position: none. Temporal profile: n/a. Symptoms: none. Nystagmus [place]-Hallpike left ear return to sit position: none. [...] Vestibular Evoked Myogenic Potentials (VEMP): CPT code: 82005 Description of Procedure: short-latency myogenic potentials produced [...] 4, or 6kHz:No Rotational Chair: CPT code 43635 Description of Procedure: objective assessment of peripheral [...] regarding this information, please contact me at [phone]. Paula Reza, CCC/A copy to: Fabien Gonzalez PA-C documented in this encounterUniversity Hospitals Geaug[facility] Center03-15-2023 NoteHNO ID: [id number] Author: Yanelis French PT, DPT Service: ? [...] Planned: 8 Planned Treatment Interventions: Therapeutic exercise (71393), Neuromuscular re-education (31742), Manual therapy (04323), Therapeutic activities (01277), Self-[place] health care facility management (49779), Gait Training (54047), Aquatic PT (31786), Patient/Family/Caregiver Education, Body Mechanics Training, Functional training, General Conditioning, Canalith Repositioning Maneuvers (62852) PLAN FOR NEXT VISIT: Plan to transfer care to [facility]. Patient demonstrates good understanding of plan of care and treatment. The above goals and plan of care were discussed and agreed upon by patient/family. Transfer of Care Due To: Closer to Home Patient transferring care to: [facility] SUBJECTIVE: Regla Prajapati is a 51 year [...] 07/17/2022 10/11/2021 08/03/2021 (more content not included)... [facility]03-15-2023 History of Present illness Narrative* Yanelis French, [...] Planned: 8 Planned Treatment Interventions: Therapeutic exercise (57489), Neuromuscular re- education (17241), Manual therapy (11920), Therapeutic activities (32955), Self- [place] facility management (98630), Gait Training (25857), Aquatic PT (22841), Patient/Family/Caregiver Education, Body Mechanics Training, Functional training, General Conditioning, Canalith Repositioning Maneuvers (95791) PLAN FOR NEXT VISIT: Plan to transfer [...] nystagmus Head Shake: Negative Positional Testing Left [place]-Hallpike: Asymptomatic, No nystagmus, Comments Left Jah-Halpike Comments: [...] Education/Teach Back: States/Identifies TREATMENT: PT Treatment Interventions: Self-Long-Term Management Evaluation Self-Long-Term Management: 1: *Handout given discussion common vestibular [...] Yanelis French PT, DPT documented in this encounterUniversity Hospitals Geauga [facility] Center03-08-2023 NoteHNO ID: [id number] Author: Fabien Gonzalez PA-C Service: ? Author Type: Physician Environmental Field Team Member Type: Progress Notes Filed: 07/12/2022 12:48 PM Note Text: [facility] [place] [facility] NOTE CC: Regla Prajapati is a [...] bone conduction and speech recognition testing. CPT code:44052 RIGHT EAR: Hearing Sensitivity: Hearing sensitivity within [...] needed. omeprazole (PRILOSEC) 2 (more content not included)...[facility] 07-12-2022 NoteHNO ID: [id number] Author: Weston Cotton, CCC-A Service: ? Author Type: Cnc Mill Set Up Operator Type: Progress Notes Filed: 07/12/2022 10:25 AM Note Text: [facility] [place] [place] AUDIOLOGIC EVALUATION REPORT Name: Regla Prajapati [facility]#: [id number] Date of Service: 07/12/2022 Date of : 1970 Age: [age] year old Referred by: Fabien Gonzalez [address] [facility] [address] Referred for: Evaluation of the cause of disorder of hearing, tinnitus, or balance. Referral documented: In an order in [facility] Patient's major complaints: Complaints of recent [...] evaluation of middle ear function. CPT code: 03043 RIGHT EAR: Normal ME pressure and TM compliance (mobility). LEFT EAR: Normal ME pressure and TM compliance (mobility). ACOUSTIC REFLEXES Description of procedure: This test is an objective measure of auditory and facial nerve pathways. CPT code: 11069, 57708 RIGHT EAR PROBE EAR: (ipsi right stimulus [...] bone conduction and speech recognition testing. CPT code:54044 RIGHT EAR: Hearing Sensitivity: Hearing sensitivity within [...] to proceed with obtaining hearing aids through [facility] Audiology Section. 3. Annual recheck. 4. Hearing conservation. 5. The patient was counseled and given written information regarding effective communication strategies to enhance communication ability. 6. The patient was counseled and given written educational information re: the relationship between hearing loss and tinnitus, as well as, other common causes of tinnitus and options for tinnitus management. Beni Cotton, GRAYSON/A Clinical Cnc Mill Set Up Operator GROVES Abbrev- iation Definition Degree of hearing sensitivity dB range WNL within normal limits WNL 0 - 20 SNHL sensorineural hearing loss Mild 20-40 CHL conductive hearing loss Moderate 40-55 MHL mixed hearing loss Moderately-Severe 55-70 WRS word recognition score Severe 70-90 ME middle ear Profound (more content not included)...[facility] 07-12-2022 Instructions* Patient Instructions* Fabien Gonzalez PA-C - 07/12/2022 10:59 AM EST Call [phone] to schedule an appointment to assess your need for hearing aids. Request a Hearing Aid Evaluation (HAE) appointment. documented in this encounterUniversity Hospitals Geauga Medical Center03-08-2023 History of Present illness Narrative* Fabien Gonzalez PA-C - 07/12/2022 10:32 AM EST Images from the original note were not included. [facility] [place] [facility] NOTE CC: Regla Prajapati is a [...] and boneconduction and speech recognition testing. CPT code:35943 RIGHT EAR: Hearing Sensitivity: Hearing sensitivity within [...] rendered reconstructions of the carotid arteries and [place] of [place] were reviewed. Stenosis is evaluated [...] Level: 4 - Moderate documented in this encounterUniversity Hospitals Geauga Medical Center03-08-2023 History of Present illness Narrative* Weston Cotton, CCC-A - 07/12/2022 10:14 AM EST [facility] [place] AUDIOLOGIC EVALUATION REPORT Name: Regla Prajapati CC#: [id number] Date of Service: 07/12/2022 Date of : 1970 Age: [age] year old Referred by: Fabien Gonzalez [address] [facility] [address] Referred for: Evaluation of the cause of disorder of hearing, tinnitus, or balance. Referral documented: In an order in [facility] Patient's major complaints: Complaints of recent [...] evaluation of middle ear function. CPT code: 47658 RIGHT EAR: Normal ME pressure and TM compliance (mobility). LEFT EAR: Normal ME pressure and TM compliance (mobility). ACOUSTIC REFLEXES Description of procedure: This test is an objective measure of auditory and facial nerve pathways. CPT code: 95612, 84966 RIGHT EAR PROBE EAR: (ipsi right stimulus [...] and boneconduction and speech recognition testing. CPT code:58447 RIGHT EAR: Hearing Sensitivity: Hearing sensitivity within [...] to proceed with obtaining hearing aids through [facility] Audiology Section. 3. Annual recheck. 4. Hearing conservation. 5. The patient was counseled and given written information regarding effective communication strategies to enhance communication ability. 6. The patient was counseled and given written educational information re: the relationship betweenhearing loss and tinnitus, as well as, other common causes of tinnitus and options for tinnitus management. Beni Cotton, CCC/A Clinical Cnc Mill Set Up Operator GROVES Abbrev- iation Definition Degree of hearing sensitivity dB range WNL within normal limits WNL 0 - 20 SNHL sensorineural hearing loss Mild 20-40 CHL conductive hearing loss Moderate 40-55 MHL mixed hearing loss Moderately-Severe 55-70 WRS word recognition score Severe 70-90 ME middle ear Profound 90 + TM tympanic membrane documented in this encounterUniversity Hospitals Geauga [facility] Center03-07-2023 Evaluation note* Encounter Date Diagnosis Assessment Notes Treatment Notes Treatment Clinical Notes Jul, Constipation (ICD-10 - K59.00) [facility] Other 02-28-2023 Miscellaneous Notes* Telephone Encounter - Ting Camilo MD - 07/04/2022 1:54 PM EST I called Alo Martines to review 24hr [...] week. Ting Camilo MD documented in this encounterUniversity Hospitals Geauga Medical Center02-23-2023 NoteHNO ID: [id number] Author: Robert Gramajo MD Service: ? Author [...] Pressure in Adults: A Report of the [place] College of Cardiology/[place] Heart Association Task Force on Clinical Practice Guidelines. Hypertension. 2018 Oct;71(6):s61-p723. Epub 2016Mar 19. 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 Other episodes at 12.20 pm (closest BP/ HR 117/70 and 73 bpm at 12.19 pm) and 3.30 pm (closest BP/ HR 118/74 and 71 bpm at 3.30 pm) A copy of this report will be sent to referring physician via EMR. A copy of the full report with raw data and all individual readings will be scanned into [employer], which can be reviewed under scanned documents. Robert Gramajo [facility]02-23-2023 History of Present illness Narrative* Robert [...] Pressure in Adults: A Report of the [place] College of Cardiology/[place] Heart Association Task Force on Clinical Practice Guidelines. Hypertension. 2018 Oct;71(6):w45-f689. Epub 2016Mar 19. 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 Other episodes at 12.20 pm (closest BP/ HR 117/70 and 73 bpm at 12.19 pm) and3.30 pm (closest BP/ HR 118/74 and 71 bpm at 3.30 pm) A copy of this report will be sent to referring physician via EMR. A copy of the full report with raw data and all individual readings will be scanned into [employer], which can be reviewed under scanned documents. Robert Gramajo MD documented in this encounterUniversity Hospitals Geauga Medical Center02-23-2023 Evaluation note* Encounter Date Diagnosis Assessment Notes Treatment Notes Treatment Clinical Notes Jun, Gastritis (ICD-10 - K29.70) [facility] Other 02-22-2023 Evaluation note* Encounter Date Diagnosis Assessment Notes Treatment Notes Treatment Clinical Notes Jun, Constipation (ICD-10 - K59.00) Stop Trulance Start Amitiza 24mcg bid Follow up in 3-4 months Jun, Nausea (ICD-10 - R11.0) Jun, Gastritis (ICD-10 - K29.70) Increase Pantoprazole to 40mg bid. [facility] Other 02-16-2023 NoteHNO ID: [id number] Author: Carmen Obrien MA Service: ? Author Type: Copy Chief Type: Progress Notes Filed: 06/22/2022 3:32 PM Note Text: 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 Average BP: 110/77 AOBP - Standardized BP [...] patient to return monitor by mail via DocTree no later than: 06/23/2022. Serial number: [id number] DocTree Tracking number [id number] Did the patient receive a blood pressure cuff? Yes Did the patient receive a blood pressure monitor? Yes Did the patient receive a belt? Yes Patient expressed understanding of all above. Patient signed financial release form and aware that they will be billed if the monitor is not returned by the specified date. All questions answered Carmen Obrien [facility]02-16-2023 NoteHNO ID: [id number] Author: Ting Camilo MD Service: ? Author [...] Labs reviewed CKD LAB (more content not included)...[facility]02-16-2023 Instructions* Patient Instructions* Carmen Obrien MA - 06/22/2022 3:29 PM EST 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 Average BP: 110/77 AOBP - Standardized BP [...] patient to return monitor by mail via DocTree no later than: 06/23/2022. Serial number: [id number] [employer] Tracking number [id number] Did the patient receive a blood pressure cuff? Yes Did the patient receive a blood pressure monitor? Yes Did the patient receive a belt? Yes Patient expressed understanding of all above. Patient signed financial release form and aware that they will be billed if the monitor is not returned by the specified date. All questions answered Carmen Obrien MA documented in this encounterUniversity Hospitals Geauga Medical Center02-16-2023 Instructions* Patient Instructions* Ting Camilo MD - 06/22/2022 3:21 PM EST 24hr BP cuff Decrease nighttime lisinopril to 5mg Get EKG Let me know how BP's and your dizziness are doing in a few weeks Return 3 months documented in this encounterUniversity Hospitals Geauga Medical Center02-16-2023 History of Present illness Narrative* Carmen Obrien MA - 06/22/2022 3:16 PM EST 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 Average BP: 110/77 AOBP - Standardized BP [...] patient to return monitor by mail via DocTree no later than: 06/23/2022. Serial number: [id number] [employer] Tracking number [id number] Did the patient receive a blood pressure cuff? Yes Did the patient receive a blood pressure monitor? Yes Did the patient receive a belt? Yes Patient expressed understanding of all above. Patient signed financial release form and aware that they will be billed if the monitor is not returned by the specified date. All questions answered Carmen Obrien MA documented in this encounterUniversity Hospitals Geauga Medical Center02-16-2023 History of Present illness Narrative* [...] months Ting Camilo MD documented in this encounterUniversity Hospitals Geauga Medical Center02-16-2023 NotePatient Outreach (MIRTA) REGLA PRAJAPATI ([id number]) 1970 F Date Time Provider Department 06/22/22 TING CAMILO During your visit today, we recorded the following information about you: Allergies As of Date: 06/22/2022 Noted Allergy Reaction AMLODIPINE 05/08/2019 7 - Swelling Comments: BLE swelling PENICILLINS 04/24/2002 Date Reviewed: 06/22/2022 Reviewed by: Yen Beth MA - Fully Assessed Visit Diagnosis:Screening for genitourinary condition [Z13.89] Order(s):URINALYSIS, REFLEX MICROSCOPIC [[id number]] Order #: [id number]. #:[id number] Prescriptions as of 06/26/2022 - terbinafine HCl [...] 04/06/2020 Hemorrhoids [K64.9] 04/06/2020 Encounter Status:Closed by Viva Dengi, PRODUSER on 06/26/22[facility] 05-04-2022 NoteHNO ID: [id number] Author: Fermin Begum MD Service: ? Author Type: Physician Type: Progress Notes Filed: 05/04/2022 12:21 PM Note Text: [facility] [place] DEPARTMENT OF VASCULAR SURGERY OUTPATIENT VISIT DATE May 04, 2022 OUTPATIENT VISIT TYPE ESTABLISHED SERVICE DATE: 05/04/2022 SERVICE TIME: 11:54 AM PRIMARY CARE PHYSICIAN: Renetta Ridley, MAGNAFLUX OPERATOR, MAGNAFLUX OPERATOR HISTORY OF PRESENT ILLNESS: Ms. Prajapati is [...] valvular abnormalities 03/04/2019 patient had procedure at [facility] in [place] for critical right common iliac artery stenosis [...] fingers pink, well perfused. Neurological: 5/5 motor yarn cleaner strength, elbow flexion/extension Vascular: palp b/l radial Diagnostic tests reviewed for today's visit: Most recent labs Most (more content not included)...[facility]11-17-2022 NoteHNO ID: [id number] Author: Ting Camilo MD Service: ? 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 Her lisinopril was increased to 10mg a [...] or rubs. 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 Her lisinopril was increased to 10mg a [...] BP's are doing in 2 weeks on Fivetrant message Follow up with Dr. Anderson as planned Return 3 months kidney US in 6 months Ting Camilo MD documented in this encounterUniversity Hospitals Geauga Medical Center11-17-2022 NotePatient Outreach (MIRTA) REGLA PRAJAPATI ([id number]) 1970 F Date Time Provider Department 03/23/22 TING CAMILO During your visit today, we recorded the following information about you: Allergies As of Date: 03/23/2022 Noted Allergy Reaction AMLODIPINE 05/08/2019 7 - Swelling Comments: BLE swelling PENICILLINS 04/24/2002 Date Reviewed: 03/23/2022 Reviewed by: Yen Bteh MA - Fully Assessed Visit Diagnosis:Screening for genitourinary condition [Z13.89] Order(s):URINALYSIS, REFLEX MICROSCOPIC [[id number]] Order #: [id number] Prescriptions as of 03/27/2022 - lisinopril (ZESTRIL, [...] 04/06/2020 Hemorrhoids [K64.9] 04/06/2020 Encounter Status:Closed by Viva Dengi, PRODUSER on 03/27/22[facility] 01-05-2022 NoteHNO ID: [id number] Author: Brad Bone Jr., MD Service: ? Author Type: Physician Type: Progress Notes Filed: 01/05/2022 1:31 PM Note Text: CONSULTATION Requesting provider: Renetta Ridley, MAGNAFLUX OPERATOR ([facility]) [address] [place] [address] Alo is here today for my opinion [...] having consiptation. Last endoscopic W/U was in [place] about 3 years ago. Initial work up performed at OSH ([place], [place]): US - normal GB, wall = [...] cc: Referring provider Renetta Ridley CNP ([facility]) [address] [place] [address]Knjlrbmth[facility]09[facility] History of Present illness Narrative* Brad Bone Jr., MD - 01/05/2022 11:47 AM EDT CONSULTATION Requesting provider: Renetta Ridley CNP (DrC) [address] [place] [address] Alo is here today for my opinion [...] having consiptation. Last endoscopic W/U was in [place] about 3 years ago. Initial work up performed at [place]SH ([place]): US - normal GB, wall = 1.6mm, [...] Bone MD cc: Referring provider Renetta Ridley, MAGNAFLUX OPERATOR ([facility]) [address] [facility] [address] documented in this encounterUniversity Hospitals Geaug[facility] Center08-24-2022 Miscellaneous Notes* Telephone Encounter - [...] 1145 and patient accepted documented in this encounterUniversity Hospitals Geauga Medical Center06-14-2022 NoteHNO ID: [id number] Author: Mikey Palomo MD Service: ? Author Type: Physician Type: Progress Notes Filed: 10/28/2021 5:43 PM Note Text: TELEMEDICINE VISIT Modified Protocol for treatment of other conditions supportive of goal to minimize vulnerable patient exposure to Covid-19 [facility] Emergency Consented for encounter Patient verified by name and Regla Prajapati [id number] 1970 SUBJECTIVE: The [facility] for pain [...] diffuse pain episode of renal insuffic at [facility]? we dont have those records to review no benefit perceived from lyrica so ok to taper off never started log of physical function so hard to tell if improved I reiterated need to Track physical function and functional rastafari Dx: Neuralgia and neuritis (primary encounter diagnosis) [...] which included preparing to see the patient, [id number] patient care, completing clinical documentation, obtaining and/or [...] agrees with above. Mikey Palomo MD October 18[facility]06-[facility] History of Present illness Narrative* Mikey Palomo MD - 2021 5:02 PM EDT TELEMEDICINE VISIT Modified Protocol for treatment of other conditions supportive of goal to minimize vulnerable patient exposure to Covid-19 [facility] Emergency Consented for encounter Patient verified by name and Regla Prajapati [id number] 1970 SUBJECTIVE: The [facility] for pain [...] need to Track physical function and functional rastafari Dx: Neuralgia and neuritis (primary encounter diagnosis) [...] which included preparing to see the patient, [id number] patient care, completing clinical documentation, obtaining and/or [...] Mikey Palomo MD 2021 documented in this encounterUniversity Hospitals Geaug[facility] Center05-17-2022 NoteHNO ID: [id number] Author: Ting Camilo MD Service: ? Author [...] Color Yellow Light Ye (more content not included)...[facility] 09-20-2021 Instructions* Patient Instructions* Ting Camilo MD - 09/20/2021 3:25 PM EDT No changes in meds I will review your case with some colleagues to make sure we don't think something else is going on Return 6 months documented in this encounterUniversity Hospitals Geaug[facility] Center05-17-2022 History of Present illness Narrative* [...] Negative Negative Ketones, Urine Negative Negative Specific [place], Ur 1.005 - 1.030 1.009 Hemoglobin/Blood,Ur Negative [...] months Ting Camilo MD documented in this encounterUniversity Hospitals Geauga Medical Center05-17-2022 NotePatient Outreach (MIRTA) ALOREGLA ([id number]) 1970 F Date Time Provider Department 09/20/21 TING CAMILO During your visit today, we recorded the following information about you: Allergies As of Date: 09/20/2021 Noted Allergy Reaction AMLODIPINE 05/08/2019 7 - Swelling Comments: BLE swelling PENICILLINS 04/24/2002 Date Reviewed: 09/20/2021 Reviewed by: Ting Camilo MD - Fully Assessed Visit Diagnosis:Screening for genitourinary condition [Z13.89] Order(s):URINALYSIS, REFLEX MICROSCOPIC [XHE4777] Order #: [id number]. #:[id number] Prescriptions as of 09/23/2021 - tiZANidine HCl [...] 04/06/2020 Hemorrhoids [K64.9] 04/06/2020 Encounter Status:Closed by Viva Dengi, PRODUSER on 09/23/21[facility] 09-09-2021 NoteHNO ID: [id number] Author: Vik Sutherland MD Service: ? Author [...] PAST MEDICAL HISTORY D (more content not included)...[facility]05-06-2022 History of Present illness Narrative* Vik Sutherland [...] and right common iliac artery stents. She yra24-36% right and 0-59% left renal artery stenosis. [...] Yoder. The patient underwent recent evaluation, at [facility] in [place], for dizzy spells/syncope. BP: 102/70 TN: 96 Wt: 165 lbs Clinical cardiac examination [...] Dyspnea on exertion Pvd (peripheral vascular disease) (formerly [facility]) Vik Sutherland MD documented in this encounterUniversity Hospitals Geauga Medical Center04-08-2022 NoteHNO ID: [id number] Author: RT Leda(R) Service: ? Author Type: [...] BY: RT Leda(R) August 12, 2021 11:38 [id number] History of Present illness Narrative* RT Leda(R) [...] 12, 2021 11:38 AM documented in this encounterUniversity Hospitals Geaug[facility] Center04-06-2022 Instructions* Patient Instructions* Mikey Palomo [...] your usual activities immediately. documented in this encounterUniversity Hospitals Geauga Medical Center04-06-2022 History of Present illness Narrative* Mikey Palomo MD - 08/10/2021 1:40 PM EDT History and Physical Assessment Patient Name: Regla Prajapati MR #: [id number] Age: [age] year old Date: August 10, [...] Normal/Negative. Skin: Normal/Negative. Heart/Lungs: Normal/Negative. GI: Normal/Negative. 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 Heme: Normal/Negative. Endo: Normal/Negative. Neuro: Normal/Negative. [...] 53 yrs. other (healthy) Sister 26 yrs. [address] Allergies: ALLERGIES Allergen Reactions Amlodipine Swelling BLE [...] [place] Patient feels safe at home: Yes Quality Coordinator: Emily Sykes MA Imaging Studies: none Is [...] capsule Refill: 2 Track physical activity consider [facility] chronic pain recovery program Return to clinic (in-person office visit or virtual visit/telemedicine) after all above completed fully. I spent a total of 60minutes on the date of the service which included: *preparing to see the patient *[id number] patient care *completing clinical documentation *obtaining and/or [...] MD August 10, 2021 documented in this encounterUniversity Hospitals Geauga Medical Center12-27-2021 History of Present illness Narrative* [...] DIAGNOSTIC CT PERFORMED: No IV SITE: Ambulatory: VT only - direct IV injection in the Right hand POST EXAM PIV STATUS: Not applicable PROCEDURE TYPE: VT INJECT: PET/CT WHOLE BODY SCAN. 9.9 mCi [...] 7:52 AM PAGER/CONTACT #: documented in this encounterUniversity Hospitals Geauga Medical Center12-23-2021 History of Present illness Narrative* [...] 2021 TIME: 12:58 PM documented in this encounterUniversity Hospitals Geaug[facility] Center09-22-2020 History of Past illness Narrative* Problem Noted Date Resolved Date Hyperventilation 01/27/2020 04/14/2021 TIA (transient ischemic attack) 01/26/2020 01/27/2020 documented as of this encounter (statuses as of 08/11/2021) [facility] History of Past illness Narrative* Problem Noted Date Resolved Date Hyperventilation 01/27/2020 04/14/2021 TIA (transient ischemic attack) 01/26/2020 01/27/2020 documented as of this encounter (statuses as of 08/13/2021) [facility] History of Past illness Narrative* Problem Noted Date Resolved Date Hyperventilation 01/27/2020 04/14/2021 TIA (transient ischemic attack) 01/26/2020 01/27/2020 documented as of this encounter (statuses as of 09/09/2021) [facility] of Past illness Narrative* Problem Noted Date Resolved Date Hyperventilation 01/27/2020 04/14/2021 TIA (transient ischemic attack) 01/26/2020 01/27/2020 documented as of this encounter (statuses as of 09/20/2021) [facility] of Past illness Narrative* Problem Noted Date Resolved Date Hyperventilation 01/27/2020 04/14/2021 TIA (transient ischemic attack) 01/26/2020 01/27/2020 documented as of this encounter (statuses as of 10/19/2021) [facility] of Past illness Narrative* Problem Noted Date Resolved Date Hyperventilation 01/27/2020 04/14/2021 TIA (transient ischemic attack) 01/26/2020 01/27/2020 documented as of this encounter (statuses as of 10/27/2021) [address]22-2020 History of Past illness Narrative* Problem Noted Date Resolved Date Hyperventilation 01/27/2020 04/14/2021 TIA (transient ischemic attack) 01/26/2020 01/27/2020 documented as of this encounter (statuses as of 10/28/2021) [address]22-2020 History of Past illness Narrative* Problem Noted Date Resolved Date Hyperventilation 01/27/2020 04/14/2021 TIA (transient ischemic attack) 01/26/2020 01/27/2020 documented as of this encounter (statuses as of 12/28/2021) [facility] of [facility] illness Narrative* Problem Noted Date Resolved Date Hyperventilation 01/27/2020 04/14/2021 TIA (transient ischemic attack) 01/26/2020 01/27/2020 documented as of this encounter (statuses as of 01/05/2022) [facility] of [facility] Narrative* Problem Noted Date Resolved Date Hyperventilation 01/27/2020 04/14/2021 TIA (transient ischemic attack) 01/26/2020 01/27/2020 documented as of this encounter (statuses as of 03/22/2022) [address]22-2020 History of Past illness Narrative* Problem Noted Date Resolved Date Hyperventilation 01/27/2020 04/14/2021 TIA (transient ischemic attack) 01/26/2020 01/27/2020 documented as of this encounter (statuses as of 03/23/2022) [facility] Narrative* Problem Noted Date Resolved Date Hyperventilation 01/27/2020 04/14/2021 TIA (transient ischemic attack) 01/26/2020 01/27/2020 documented as of this encounter (statuses as of 03/23/2022) [facility] Narrative* Problem Noted Date Resolved Date Hyperventilation 01/27/2020 04/14/2021 TIA (transient ischemic attack) 01/26/2020 01/27/2020 documented as of this encounter (statuses as of 03/23/2022) [address]22-2020 History of Past illness Narrative* Problem Noted Date Resolved Date Hyperventilation 01/27/2020 04/14/2021 TIA (transient ischemic attack) 01/26/2020 01/27/2020 documented as of this encounter (statuses as of 03/27/2022) [address]22-2020 History of Past illness Narrative* Problem Noted Date Resolved Date Hyperventilation 01/27/2020 04/14/2021 TIA (transient ischemic attack) 01/26/2020 01/27/2020 documented as of this encounter (statuses as of 05/11/2022) [facility] Narrative* Problem Noted Date Resolved Date Hyperventilation 01/27/2020 04/14/2021 TIA (transient ischemic attack) 01/26/2020 01/27/2020 documented as of this encounter (statuses as of 05/13/2022) [facility] Narrative* Problem Noted Date Resolved Date Hyperventilation 01/27/2020 04/14/2021 TIA (transient ischemic attack) 01/26/2020 01/27/2020 documented as of this encounter (statuses as of 05/15/2022) [facility] Narrative* Problem Noted Date Resolved Date Hyperventilation 01/27/2020 04/14/2021 TIA (transient ischemic attack) 01/26/2020 01/27/2020 documented as of this encounter (statuses as of 05/30/2022) [address]22-2020 History of Past illness Narrative* Problem Noted Date Resolved Date Hyperventilation 01/27/2020 04/14/2021 TIA (transient ischemic attack) 01/26/2020 01/27/2020 documented as of this encounter (statuses as of 06/14/2022) [facility] Narrative* Problem Noted Date Resolved Date Hyperventilation 01/27/2020 04/14/2021 TIA (transient ischemic attack) 01/26/2020 01/27/2020 documented as of this encounter (statuses as of 06/22/2022) [facility] Narrative* Problem Noted Date Resolved Date Hyperventilation 01/27/2020 04/14/2021 TIA (transient ischemic attack) 01/26/2020 01/27/2020 documented as of this encounter (statuses as of 06/22/2022) [address]22-2020 History of Past illness Narrative* Problem Noted Date Resolved Date Hyperventilation 01/27/2020 04/14/2021 TIA (transient ischemic attack) 01/26/2020 01/27/2020 documented as of this encounter (statuses as of 06/26/2022) [address]22-2020 History of Past illness Narrative* Problem Noted Date Resolved Date Hyperventilation 01/27/2020 04/14/2021 TIA (transient ischemic attack) 01/26/2020 01/27/2020 documented as of this encounter (statuses as of 06/27/2022) [address]22-2020 History of Past illness Narrative* Problem Noted Date Resolved Date Hyperventilation 01/27/2020 04/14/2021 TIA (transient ischemic attack) 01/26/2020 01/27/2020 documented as of this encounter (statuses as of 06/29/2022) [address]22-2020 History of Past illness Narrative* Problem Noted Date Resolved Date Hyperventilation 01/27/2020 04/14/2021 TIA (transient ischemic attack) 01/26/2020 01/27/2020 documented as of this encounter (statuses as of 07/04/2022) [address]22-2020 History of Past illness Narrative* Problem Noted Date Resolved Date Hyperventilation 01/27/2020 04/14/2021 TIA (transient ischemic attack) 01/26/2020 01/27/2020 documented as of this encounter (statuses as of 07/04/2022) [address]22-2020 History of Past illness Narrative* Problem Noted Date Resolved Date Hyperventilation 01/27/2020 04/14/2021 TIA (transient ischemic attack) 01/26/2020 01/27/2020 documented as of this encounter (statuses as of 07/12/2022) [address]22-2020 History of Past illness Narrative* Problem Noted Date Resolved Date Hyperventilation 01/27/2020 04/14/2021 TIA (transient ischemic attack) 01/26/2020 01/27/2020 documented as of this encounter (statuses as of 07/12/2022) [address]22-2020 History of Past illness Narrative* Problem Noted Date Resolved Date Hyperventilation 01/27/2020 04/14/2021 TIA (transient ischemic attack) 01/26/2020 01/27/2020 documented as of this encounter (statuses as of 07/13/2022) [address]22-2020 History of Past illness Narrative* Problem Noted Date Resolved Date Hyperventilation 01/27/2020 04/14/2021 TIA (transient ischemic attack) 01/26/2020 01/27/2020 documented as of this encounter (statuses as of 07/19/2022) [facility]* Problem Noted Date Resolved Date Hyperventilation 01/27/2020 04/14/2021 TIA (transient ischemic attack) 01/26/2020 01/27/2020 documented as of this encounter (statuses as of 07/20/2022) [facility]* Problem Noted Date Resolved Date Hyperventilation 01/27/2020 04/14/2021 TIA (transient ischemic attack) 01/26/2020 01/27/2020 documented as of this encounter (statuses as of 07/25/2022) [facility]* Problem Noted Date Resolved Date Hyperventilation 01/27/2020 04/14/2021 TIA (transient ischemic attack) 01/26/2020 01/27/2020 documented as of this encounter (statuses as of 07/26/2022) [facility] Narrative* Problem Noted Date Resolved Date Hyperventilation 01/27/2020 04/14/2021 TIA (transient ischemic attack) 01/26/2020 01/27/2020 documented as of this encounter (statuses as of 07/27/2022) [facility] Narrative* Problem Noted Date Resolved Date Hyperventilation 01/27/2020 04/14/2021 TIA (transient ischemic attack) 01/26/2020 01/27/2020 documented as of this encounter (statuses as of 08/08/2022) [facility] Narrative* Problem Noted Date Resolved Date Hyperventilation 01/27/2020 04/14/2021 TIA (transient ischemic attack) 01/26/2020 01/27/2020 documented as of this encounter (statuses as of 09/02/2022) [address]2020 History of Past illness Narrative* Problem Noted Date Diagnosed Date Resolved Date Hyperventilation 01/27/2020 04/14/2021 TIA (transient ischemic attack) 01/26/2020 01/27/2020 documented as of this encounter (statuses as of 12/15/2022) [address]22[address]2020 History of Past illness Narrative* Problem Noted Date Diagnosed Date Resolved Date Hyperventilation 01/27/2020 04/14/2021 TIA (transient ischemic attack) 01/26/2020 01/27/2020 documented as of this encounter (statuses as of 12/15/2022) [facility] Narrative* Problem Noted Date Diagnosed Date Resolved Date Hyperventilation 01/27/2020 04/14/2021 TIA (transient ischemic attack) 01/26/2020 01/27/2020 documented as of this encounter (statuses as of 12/15/2022) [facility] of Present illness Narrative* [...] 2020 TIME: 1:47 PM [facility] Diagnosis Neuralgia and neuritis- Primary [...] Coronary atherosclerosis of unspecified type of vessel, big sandy or graft Encounter for screening for osteoporosis Special screening for osteoporosis Asymptomatic postmenopausal status Premature menopause documented in this encounter [facility]* Diagnosis Atherosclerosis Generalized and unspecified atherosclerosis Bilateral carotid artery stenosis Occlusion and stenosis of carotid artery without mention of cerebral infarction Hiatal hernia Diaphragmatic hernia without mention of obstruction or gangrene Renal artery stenosis (HCC) Atherosclerosis of renal artery RAJESH (generalized anxiety disorder) Generalized anxiety disorder CAD, multiple vessel Coronary atherosclerosis of unspecified type of vessel, big sandy or graft Neuralgia and neuritis Neuralgia, neuritis, and radiculitis, unspecified documented in this encounter [facility] note* Diagnosis Essential hypertension- Primary Unspecified essential hypertension Dizziness Dizziness and giddiness Dyspnea on exertion Other dyspnea and respiratory abnormality PVD (peripheral vascular disease) (HCC) Peripheral vascular disease, unspecified [facility] Diagnosis Renal artery stenosis (HCC)- Primary Atherosclerosis of renal artery Essential hypertension Unspecified essential hypertension documented in this encounter [facility] note* Diagnosis Neuralgia and neuritis- Primary Neuralgia, neuritis, and radiculitis, unspecified CAD, multiple vessel Coronary atherosclerosis of unspecified type of vessel, big sandy or graft RAJESH (generalized anxiety disorder) Generalized anxiety disorder documented in this encounter [facility] note* Diagnosis Nausea and vomiting, unspecified vomiting type- Primary Bloating Flatulence, eructation, and gas pain Other constipation documented in this encounter [facility]* Diagnosis Bilateral carotid artery stenosis Occlusion and stenosis of carotid artery without mention of cerebral infarction PVD (peripheral vascular disease) (HCC) Peripheral vascular disease, unspecified Renal artery stenosis (HCC) Atherosclerosis of renal artery Atherosclerosis Generalized and unspecified atherosclerosis documented in this encounter [facility] note* Diagnosis Abdominal aortic aneurysm (AAA) without rupture, unspecified part- Primary NANCY (renal artery stenosis) (HCC) Atherosclerosis of renal artery Carotid stenosis, asymptomatic, bilateral documented in this encounter [facility] note* Diagnosis Peripheral arterial disease (HCC)- Primary Peripheral vascular disease, unspecified documented in this encounter [facility] note* Diagnosis Renal artery stenosis (HCC)- Primary Atherosclerosis of renal artery Essential hypertension Unspecified essential hypertension Kidney cyst, acquired Acquired cyst of kidney documented in this encounter [facility] note* Diagnosis Screening for genitourinary condition Screening for other and unspecified genitourinary condition documented in this encounter [facility] note* Diagnosis Essential hypertension- Primary Unspecified essential hypertension documented in this encounter [facility] note* Diagnosis Essential hypertension- Primary Unspecified essential hypertension documented in this encounter [facility] note* Diagnosis Essential hypertension- Primary Unspecified essential hypertension Hypotension, unspecified hypotension type documented in this encounter [facility] note* Diagnosis Essential hypertension- Primary Unspecified essential hypertension Renal artery stenosis (HCC) Atherosclerosis of renal artery Tachycardia Tachycardia, unspecified documented in this encounter [facility] note* Diagnosis Hypotension, unspecified hypotension type- Primary documented in this encounter [facility] note* Diagnosis Screening for genitourinary condition Screening for other and unspecified genitourinary condition documented in this encounter [facility] noteNo assessment [facility]: Evaluation note* Diagnosis Abnormal EKG- Primary Nonspecific abnormal electrocardiogram (ECG) (EKG) documented in this encounter [facility] note* Diagnosis Hypotension, unspecified hypotension type- Primary documented in this encounter [facility] note* Diagnosis Essential hypertension- Primary Unspecified essential hypertension documented in this encounter [facility] note* Diagnosis Essential hypertension- Primary Unspecified essential hypertension [facility] Diagnosis Tinnitus, bilateral- Primary Unspecified tinnitus Other specified hearing loss, unspecified ear Asymmetrical sensorineural hearing loss Sensorineural hearing loss, asymmetrical Dizziness Dizziness and giddiness [facility] Diagnosis Asymmetrical sensorineural hearing loss- Primary Sensorineural hearing loss, asymmetrical Dizziness Dizziness and giddiness Lightheadedness Dizziness and giddiness Tinnitus, bilateral Unspecified tinnitus Arachnoid cyst Cerebral cysts [facility]* Diagnosis Dizziness- Primary Dizziness and giddiness Lightheadedness Dizziness and giddiness [facility] Diagnosis Dizziness- Primary Dizziness and giddiness Lightheadedness Dizziness and giddiness [facility] Diagnosis Lightheadedness- Primary Dizziness and giddiness [facility]* Diagnosis Dizziness- Primary Dizziness and giddiness Cervicalgia Balance problem Other symptoms involving nervous and musculoskeletal systems [facility]* Diagnosis Dizziness- Primary Dizziness and giddiness Arachnoid cyst Cerebral cysts [facility]* Diagnosis Arteritis, Takayasu (HCC) Takayasu's disease Arterial disease ([facility]) Unspecified disorders of arteries and arterioles Bilateral carotid artery stenosis Occlusion and stenosis of carotid artery without mention of cerebral infarction Subclavian arterial stenosis ([facility]) Stricture of artery [facility]* Diagnosis Nonruptured cerebral aneurysm Cerebral aneurysm, nonruptured Dizziness and giddiness Encounter for screening for cardiovascular disorders Screening for other and unspecified cardiovascular conditions [facility]* Diagnosis Generalized anxiety disorder with panic attacks ([facility])- Primary Encounter for screening mammogram for malignant neoplasm of breast Hyperlipemia, mixed ([facility]) Mixed hyperlipidemia Vitamin D insufficiency Hypothyroidism, adult ([facility]) Other specified acquired hypothyroidism Gastroesophageal reflux disease with esophagitis, unspecified whether hemorrhage Hypertension, essential ([facility]/HCC) Unspecified essential hypertension PVD (peripheral vascular disease) ([facility]) Unspecified peripheral vascular disease BMI 27.0-27.9,adult [facility] Diagnosis Peripheral vascular disease, unspecified ([facility])- Primary Peripheral vascular disease, unspecified documented in this encounter [facility] Work Phone: History general Narrative - Reported* Type Description Date Medical History PVD Medical History CAROTID STENOSIS Medical History ANXIETY Medical History HYPERCHOLESTEREMIA Surgical History HYSTERECTOMY Surgical History LAPROSCOPY Surgical History ANGIO & CAROTID DSA 02-28-2019 Surgical History RIGHT ILIAC & CAROTID ANGIOPLAS TY & STENTING 03-04-2019 [employer] Other Reason for referral (narrative)* Outpatient Procedure (Routine) - Closed Specialty Diagnoses / Procedures Referred By Contac t Referred To Contact [facility] [place] Diagnoses Essential hypertension Dizziness Dyspnea on exertion PVD (peripheral vascular disease) (HCC) Procedures ECG COMPLETE ECG ROUTINE ECG W/LEAST 12 LDS W/I&[place] [address] [place] [address] [facility] [address] [address] Referral ID Status Reason Start Date Expiration Date V isits Requested Visits Authorized [id number] Closed Auto-Generate d Referral 09/09/2021 09/09/2022 1 1 [facility] for referral (narrative)* Outpatient Procedure (Routine) - Pending Review Specialty Diagnoses / Procedures Referred By Contac t Referred To Contact [facility] [place] Diagnoses PVD (peripheral vascular disease) (HCC) Renal artery stenosis (HCC) Atherosclerosis Procedures US ABD AORTA COMPLETE VAS LAB DUP-SCAN AORTA IVC ILIAC VASCL/[place] [address] [place] [address] [facility] [address] [address] Referral ID Status Reason Start Date Expiration Date Visits Requested Visits Authorized [id number] Pending Review Auto-Generat ed Referral 2 03/22/2023 1 1 * Outpatient Procedure (Routine) - Pending Review Specialty Diagnoses / Procedures Referred By Contac t Referred To Contact [facility] [place] Diagnoses Renal artery stenosis (HCC) Procedures US RENAL ARTERY [place] VAS LAB DUP-SCAN ARTL [place] ABDL/PEL/SCROT&/[place] [address] [place] [address] [facility] [address] [address] Referral ID Status Reason Start Date Expiration Date Visits Requested Visits Authorized [id number] Pending Review Auto-Generat ed Referral 2 03/22/2023 1 1 * Outpatient Procedure (Routine) - Pending Review Specialty Diagnoses / Procedures Referred By Contac t Referred To Contact [facility] [place] Diagnoses Bilateral carotid artery stenosis Procedures US CAROTID ARTERIES [place] VAS LAB DUPLEX SCAN EXTRACRANIAL [place] [address] [place] [address] [facility] [address] [address] Referral ID Status Reason Start Date Expiration Date Visits Requested Visits Authorized [id number] Pending Review Auto-Generat ed Referral 2 03/22/2023 1 1 [facility] for referral (narrative)* Outpatient Procedure (Routine) - Open Specialty Diagnoses / Procedures Referred By Contac t Referred To Contact [facility] [place] Diagnoses Abdominal aortic aneurysm (AAA) without rupture, unspecified part NANCY (renal artery stenosis) (HCC) Carotid stenosis, asymptomatic, bilateral Procedures US ABD AORTA COMPLETE VAS LAB DUP-SCAN AORTA IVC ILIAC VASCL/[place] [address] [place] [address] [facility] [address] [address] Referral ID Status Reason Start Date Expiration Date V isits Requested Visits Authorized [id number] Open Auto-Generate d Referral 03/23/2022 03/23/2023 1 1 * Outpatient Procedure (Routine) - Open Specialty Diagnoses / Procedures Referred By Contac t Referred To Contact [facility] [place] Diagnoses Carotid stenosis, asymptomatic, bilateral Procedures US CAROTID ARTERIES [place] VAS LAB DUPLEX SCAN EXTRACRANIAL [place] [address] [place] [address] [address] Referral ID Status Reason Start Date Expiration Date V isits Requested Visits Authorized [id number] Open Auto-Generate d Referral 03/23/2022 03/23/2023 1 1 * Outpatient Procedure (Routine) - Open Specialty Diagnoses / Procedures [facility] Diagnoses NANCY (renal artery stenosis) (HCC) Procedures US RENAL ARTERY [place] VAS LAB DUP-SCAN ARTL [place] ABDL/PEL/SCROT&/[place] [address] [place] [address] [address] Referral ID Status Reason Start Date Expiration Date V isits Requested Visits Authorized [id number] Open Auto-Generate d Referral 03/23/2022 03/23/2023 1 1 [facility] for referral (narrative)* Outpatient Procedure (Routine) - Open Specialty Diagnoses / Procedures [facility] Ref[facility] To Contact [facility] Diagnoses Peripheral arterial disease (HCC) Procedures PVR LEG [place] VAS LAB NON-INVASIVE PHYSIOLOGIC STUDY EXTREMITY 3 [place] [address] [place] [address] [address] Referral ID Status Reason Start Date Expiration Date V isits Requested Visits Authorized [id number] Open Auto-Generate d Referral 03/23/2022 03/23/2023 1 1 [facility] for referral (narrative)* Diagnostic Procedure Only (Routine) - Authorized Specialty Diagnoses / Procedures Referred By Cristobal kaye Referred To Contact [facility] Diagnoses Kidney cyst, acquired Procedures US KIDNEY/BLADDER US RETROPERITONEAL REAL TIME W/IMAGE COMPLETE Ting Camilo MD [address] [place] [address] [facility] Referral ID Status Reason Start Date Expiration Date Visits Requested Visits Authorized [id number] Authorized Auto-Generat ed Referral 09/04/2022 04/22/2023 1 1 [facility] for referral (narrative)* Outpatient Procedure (Routine) - Closed Specialty Diagnoses / Procedures Referred By Cristobal kaye Referred To Contact [facility] [place] Diagnoses Tachycardia Procedures ECG COMPLETE ECG ROUTINE ECG W/LEAST 12 LDS W/I&R Ting Camilo MD [address] [place] [address] [place] [address] Referral ID Status Reason Start Date Expiration Date V isits Requested Visits Authorized [id number] Closed Auto-Generate d Referral 06/22/2022 05/06/2023 1 1 [facility] for referral (narrative)* Outpatient Procedure (Routine) - Pending Review Specialty Diagnoses / Procedures Referred By Cristobal kaye Referred To Contact [facility] Diagnoses Abnormal EKG Procedures ECHO ECHO TTHRC R-T 2D W/WOM-MODE COMPL SPEC&COLR D Ting Camilo MD [address] [place] [address] [place] [address] Referral ID Status Reason Start Date Expiration Date Visits Requested Visits Authorized [id number] Pending Review Auto-Generat ed Referral 06/27/2022 06/27/2023 1 1 [facility] for referral (narrative)* Diagnostic Procedure Only (Urgent) - Closed Specialty Diagnoses / Procedures Referred By Contac t Referred To Contact [facility]LECULAR & [facility]AL [facility] Diagnoses Arteritis, Takayasu (HCC) Arterial disease (HCC) Bilateral carotid artery stenosis Subclavian arterial stenosis (HCC) Procedures NM PET/CT WHOLE BODY INITIAL TUMOR IMAG PET W/CONCURNT CT-WHOLE BODY Tiara Lynne MD [address] [place] [address] [facility] [address] [place] [address] Referral ID Status Reason Start Date Expiration Date V isits Requested Visits Authorized [id number] Closed Auto-Generate d Referral 04/22/2021 05/06/2021 2 2 [facility] for referral (narrative)* Diagnostic Procedure Only (Routine) - Closed Specialty Diagnoses / Procedures [facility] Ref[facility] To Contact CT [facility] Diagnoses Encounter for screening for cardiovascular disorders Procedures CTA NECK W IVCON CTA NECK, W/WO C, W/3D Elliott Salazar MD [address] [place] [address] Ct Imaging Referral ID Status Reason Start Date Expiration Date V isits Requested Visits Authorized [id number] Closed Auto-Generate d Referral 01/06/2020 02/04/2020 1 1 * Diagnostic Procedure Only (Routine) - Closed Specialty Diagnoses / Procedures [facility] Ref[facility] To Contact CT [facility] Diagnoses Nonruptured cerebral aneurysm Dizziness and giddiness Procedures CTA HEAD W IVCON CTA HEAD WWO C, W/3D Elliott Salazar MD [address] [place] [address] Ct Imaging Referral ID Status Reason Start Date Expiration Date V isits Requested Visits Authorized [id number] Closed Auto-Generate d Referral 12/18/2019 01/16/2020 1 1 [facility] for referral (narrative)* Consultation (Routine) - Pending Review Specialty Diagnoses / Procedures Referred By Contac t Referred To Contact Behavioral Health Diagnoses Generalized anxiety disorder with panic attacks (CMS/HCC) Procedures [place] OFFICE/OUTPATIENT NEW HIGH MDM 60 MINUTES Renetta Ridley, IBETH [address] [place] [address] Mattie Martinez, [facility] [address] [place] [address] Referral ID Status Reason Start Date Expiration Date Visits Requested Visits Authorized [id number] Pending Review Specialty Services Required 06/20/2023 12/17/2023 1 1 [facility] for referral (narrative)* Consultation (Routine) - Authorized Specialty Diagnoses / Procedures Referred By Contac t Referred To Contact Vascular Surgery Diagnoses Peripheral vascular disease, unspecified (CMS-HCC) Procedures Follow [place] [address] [place] [address] Referral ID Status Reason Start Date Expiration Date V isits Requested Visits Authorized [id number] Authorized 09/07/2023 09/06/2024 1 1 * Imaging (Routine) - Pending Review Specialty Diagnoses / Procedures Referred By Contac t Referred To Contact Cardiology Diagnoses Peripheral vascular disease, unspecified (CMS-HCC) Procedures Vascular [place] [address] [address] [place] [address] Referral ID Status Reason Start Date Expiration Date Visits Requested Visits Authorized [id number] Pending Review Perform Procedure 09/07/2023 09/06/2024 1 1 * Imaging (Routine) - Pending Review Specialty Diagnoses / Procedures Referred By Contac t Referred To Contact Cardiology Diagnoses Peripheral vascular disease, unspecified ([facility]-HCC) Procedures Vascular US Ankle Brachial Index ([place]) [place] [address] [facility] [place] [address] Referral ID Status Reason Start Date Expiration Date Visits Requested Visits Authorized [id number] Pending Review Perform Procedure 09/07/2023 09/06/2024 1 1 * Imaging (Routine) - Pending Review Specialty Diagnoses / Procedures Referred By Contac t Referred To Contact Cardiology Diagnoses Peripheral vascular disease, unspecified ([facility]) Procedures [place] [address] [facility] Department [place] [address] Referral ID Status Reason Start Date Expiration Date Visits Requested Visits Authorized [id number] Pending Review Perform Procedure 09/07/2023 09/06/2024 1 1 [facility] Work Phone: Reason for visit Narrative* Diagnostic Procedure Only (Urgent) - Closed Specialty Diagnoses / Procedures Referred By Contac t Referred To Contact MOLECULAR & FUNCTIONAL IMAGING Diagnoses Arteritis, Takayasu (HCC) Arterial disease (HCC) Bilateral carotid artery stenosis Subclavian arterial stenosis (HCC) Procedures NM PET/CT WHOLE BODY INITIAL TUMOR IMAG PET W/CONCURNT CT-WHOLE BODY Tiara Lynne MD [address] [place] [address] Molecular [facility] [address] [place] [id number] Referral ID Status Reason Start Date Expiration Date V isits Requested Visits Authorized [id number] Closed Auto-Generate d Referral 04/22/2021 05/06/2021 2 2 [facility] Summary Purpose Family History No [...] FoundDocuments on File Type Date Recorded Patient Senior Policy Analyst Expl anation Advance Directive(s) 03/03/2020 10:58 AM Advance Directive(s) 02/25/2020 6:09 PM Advance Directive(s) 01/26/2020 5:47 PM Advance Directive(s) 03/28/2019 12:27 PM Documents on File Type Date Recorded Patient Senior Policy Analyst Expl anation Advance Directive(s) 03/03/2020 10:58 AM Advance Directive(s) 02/25/2020 6:09 PM Advance Directive(s) 01/26/2020 5:47 PM Advance Directive(s) 03/28/2019 12:27 PM Advance Directive Response Recorded Date/ Time Advance Directives No February 27, 2019 4:45pm Advance Directive Response Recorded Date/ Time Advance Directives No February 27, 2019 5:45pm Procedure Findings Note HNO ID: [id number] Author: Reagan Catherine Service: Neurosurgery Author Type: Physician Type: Brief Op Note Filed: 03/03/2020 2:06 PM Note Text: BRIEF OP/PROCEDURE NOTE NEURO INTERVENTIONAL PROCEDURE DATE: March 03, 2020 LOG ID: [id number] Surgery/Procedure Date: 03/03/2020 Incision/Procedure Start Time: 1:23 PM Incision Close/Procedure End Time: 2:09 PM Anesthesia: Procedural Sedation PRIMARY PROCEDURALIST: Blanca Catherine M.D. 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 PRE-PROCEDURE DIAGNOSIS: Great vessel stenosis POST-PROCEDURE DIAGNOSIS: [...] constipation Procedures CONSULT TO GASTROENTEROLOGY OFFICE/OUTPATIENT [facility] 60-74 MINUTES Brad Bone Jr., MD [address] [place] [address] [place] [address] Referral ID Status Reason Start Date Expiration Date Visits Requested Visits Authorized [id number] Authorized PCP Requested Referral 01/05/2022 01/05/2023 1 1 Specialty Diagnoses / Procedures Referred By Contac t Referred To Contact Neurology Diagnoses Dizziness Lightheadedness Arachnoid cyst Procedures CONSULT TO NEUROLOGY OFFICE/OUTPATIENT [facility] 60-74 MINUTES Fabien Gonzalez PA-C [address] [place] [address] Referral ID Status Reason Start Date Expiration Date Visits Requested Visits Authorized [id number] Authorized PCP Requested Referral 07/12/2022 07/12/2023 1 1 Specialty Diagnoses / Procedures Referred By Contac t Referred To Contact [facility] Diagnoses Dizziness Lightheadedness Procedures PT REHAB FOLLOW UP ORDER THERAPEUTIC EXERCISES RE, EA 15 [address] [facility] [address] [place] [address] [facility] [address] [address] Referral ID Status Reason Start Date Expiration Date Visits Requested Visits Authorized [id number] Pending Review PCP Requested Referral Auto-Generate d Referral 07/19/2022 10/17/2022 1 1 Specialty Diagnoses / Procedures Referred By Contac t Referred To Contact CT IMAGING Diagnoses Renovascular hypertension Chronic renal failure, stage 3a (HCC) Procedures CTA ABDOMEN W IVCON CT ANGIO,ABDOMN W&WO CN Ting Camilo MD [address] [place] [address] Ct Imaging Referral ID Status Reason Start Date Expiration Date V isits Requested Visits Authorized [id number] Closed Auto-Generate d Referral 04/15/2021 05/06/2021 1 1 Chief Complaint and Reason for Visit Chief Complaint Elevated BP diarrhea vomiting Chief Complaint vomiting Additional Source Comments INFORMATION SOURCE (unrecogn ized section and content) DATE CREATED AUTHOR 03/04/2020 [facility] DATE CREATED AUTHOR AUTHOR'S ORGANIZ ATION 08/14/2021 [facility] DATE CREATED AUTHOR AUTHOR'S ORGANIZ ATION 12/28/2021 [facility] DATE CREATED AUTHOR AUTHOR'S ORGANIZ ATION 07/18/2022 [facility] DATE CREATED AUTHOR AUTHOR'S ORGANIZ ATION 09/02/2022 [facility] DATE CREATED AUTHOR AUTHOR'S ORGANIZ ATION 08/29/2023 [facility] DATE CREATED AUTHOR AUTHOR'S ORGANIZ ATION 09/08/2023 [facility] DATE CREATED AUTHOR AUTHOR'S ORGANIZ ATION 01/25/2024 [facility] EPIC Source Comments (unrecognize d section and content) In the event this informatio n is protected by the Federal Confidentiality of Alcohol and Drug Abuse Patient Records regulations: The Federal rules restrict any use of the information to criminally investigate or prosecute any alcohol or drug abuse patient.[facility] the event this information is protected by the Federal Confidentiality of Alcohol and Drug Abuse Patient Records regulations: The Federal rules restrict any use of the information to criminally investigate or prosecute any alcohol or drug abuse patient.[facility] Center[facility] the event this information is protected by the Federal Confidentiality of Alcohol and Drug Abuse Patient Records regulations: The Federal rules restrict any use of the information to criminally investigate or prosecute any alcohol or drug abuse patient.[facility] Center[facility] the event this information is protected by the Federal Confidentiality of Alcohol and Drug Abuse Patient Records regulations: The Federal rules restrict any use of the information to criminally investigate or prosecute any alcohol or drug abuse patient.[facility] Center[facility] the event this information is protected by the Federal Confidentiality of Alcohol and Drug Abuse Patient Records regulations: The Federal rules restrict any use of the information to criminally investigate or prosecute any alcohol or drug abuse patient.[facility] Center[facility] the event this information is protected by the Federal Confidentiality of Alcohol and Drug Abuse Patient Records regulations: The Federal rules restrict any use of the information to criminally investigate or prosecute any alcohol or drug abuse patient.[facility] CenterIn the event this information is protected by the Federal Confidentiality of Alcohol and Drug Abuse Patient Records regulations: The Federal rules restrict any use of the information to criminally investigate or prosecute any alcohol or drug abuse patient.[facility] Center[facility] the event this information is protected by the Federal Confidentiality of Alcohol and Drug Abuse Patient Records regulations: The Federal rules restrict any use of the information to criminally investigate or prosecute any alcohol or drug abuse patient.[facility] Center[facility] the event this information is protected by the Federal Confidentiality of Alcohol and Drug Abuse Patient Records regulations: The Federal rules restrict any use of the information to criminally investigate or prosecute any alcohol or drug abuse patient.[facility] CenterIn the event this information is protected by the Federal Confidentiality of Alcohol and Drug Abuse Patient Records regulations: The Federal rules restrict any use of the information to criminally investigate or prosecute any alcohol or drug abuse patient.[facility] CenterIn the event this information is protected by the Federal Confidentiality of Alcohol and Drug Abuse Patient Records regulations: The Federal rules restrict any use of the information to criminally investigate or prosecute any alcohol or drug abuse patient.[facility] Center[facility] the event this information is protected by the Federal Confidentiality of Alcohol and Drug Abuse Patient Records regulations: The Federal rules restrict any use of the information to criminally investigate or prosecute any alcohol or drug abuse patient.[facility] CenterIn the event this information is protected by the Federal Confidentiality of Alcohol and Drug Abuse Patient Records regulations: The Federal rules restrict any use of the information to criminally investigate or prosecute any alcohol or drug abuse patient.[facility] CenterIn the event this information is protected by the Federal Confidentiality of Alcohol and Drug Abuse Patient Records regulations: The Federal rules restrict any use of the information to criminally investigate or prosecute any alcohol or drug abuse patient.[facility] CenterIn the event this information is protected by the Federal Confidentiality of Alcohol and Drug Abuse Patient Records regulations: The Federal rules restrict any use of the information to criminally investigate or prosecute any alcohol or drug abuse patient.[facility] CenterIn the event this information is protected by the Federal Confidentiality of Alcohol and Drug Abuse Patient Records regulations: The Federal rules restrict any use of the information to criminally investigate or prosecute any alcohol or drug abuse patient.[facility] CenterIn the event this information is protected by the Federal Confidentiality of Alcohol and Drug Abuse Patient Records regulations: The Federal rules restrict any use of the information to criminally investigate or prosecute any alcohol or drug abuse patient.[facility] CenterIn the event this information is protected by the Federal Confidentiality of Alcohol and Drug Abuse Patient Records regulations: The Federal rules restrict any use of the information to criminally investigate or prosecute any alcohol or drug abuse patient.[facility] CenterIn the event this information is protected by the Federal Confidentiality of Alcohol and Drug Abuse Patient Records regulations: The Federal rules restrict any use of the information to criminally investigate or prosecute any alcohol or drug abuse patient.[facility] CenterIn the event this information is protected by the Federal Confidentiality of Alcohol and Drug Abuse Patient Records regulations: The Federal rules restrict any use of the information to criminally investigate or prosecute any alcohol or drug abuse patient.[facility] CenterIn the event this information is protected by the Federal Confidentiality of Alcohol and Drug Abuse Patient Records regulations: The Federal rules restrict any use of the information to criminally investigate or prosecute any alcohol or drug abuse patient.[facility] CenterIn the event this information is protected by the Federal Confidentiality of Alcohol and Drug Abuse Patient Records regulations: The Federal rules restrict any use of the information to criminally investigate or prosecute any alcohol or drug abuse patient.[facility] CenterIn the event this information is protected by the Federal Confidentiality of Alcohol and Drug Abuse Patient Records regulations: The Federal rules restrict any use of the information to criminally investigate or prosecute any alcohol or drug abuse patient.[facility] CenterIn the event this information is protected by the Federal Confidentiality of Alcohol and Drug Abuse Patient Records regulations: The Federal rules restrict any use of the information to criminally investigate or prosecute any alcohol or drug abuse patient.[facility] CenterIn the event this information is protected by the Federal Confidentiality of Alcohol and Drug Abuse Patient Records regulations: The Federal rules restrict any use of the information to criminally investigate or prosecute any alcohol or drug abuse patient.[facility] CenterIn the event this information is protected by the Federal Confidentiality of Alcohol and Drug Abuse Patient Records regulations: The Federal rules restrict any use of the information to criminally investigate or prosecute any alcohol or drug abuse patient.[facility] CenterIn the event this information is protected by the Federal Confidentiality of Alcohol and Drug Abuse Patient Records regulations: The Federal rules restrict any use of the information to criminally investigate or prosecute any alcohol or drug abuse patient.[facility] CenterIn the event this information is protected by the Federal Confidentiality of Alcohol and Drug Abuse Patient Records regulations: The Federal rules restrict any use of the information to criminally investigate or prosecute any alcohol or drug abuse patient.[facility] CenterIn the event this information is protected by the Federal Confidentiality of Alcohol and Drug Abuse Patient Records regulations: The Federal rules restrict any use of the information to criminally investigate or prosecute any alcohol or drug abuse patient.[facility] CenterIn the event this information is protected by the Federal Confidentiality of Alcohol and Drug Abuse Patient Records regulations: The Federal rules restrict any use of the information to criminally investigate or prosecute any alcohol or drug abuse patient.[facility] CenterIn the event this information is protected by the Federal Confidentiality of Alcohol and Drug Abuse Patient Records regulations: The Federal rules restrict any use of the information to criminally investigate or prosecute any alcohol or drug abuse patient.[facility] CenterIn the event this information is protected by the Federal Confidentiality of Alcohol and Drug Abuse Patient Records regulations: The Federal rules restrict any use of the information to criminally investigate or prosecute any alcohol or drug abuse patient.[facility] CenterIn the event this information is protected by the Federal Confidentiality of Alcohol and Drug Abuse Patient Records regulations: The Federal rules restrict any use of the information to criminally investigate or prosecute any alcohol or drug abuse patient.[facility] CenterIn the event this information is protected by the Federal Confidentiality of Alcohol and Drug Abuse Patient Records regulations: The Federal rules restrict any use of the information to criminally investigate or prosecute any alcohol or drug abuse patient.[facility] CenterIn the event this information is protected by the Federal Confidentiality of Alcohol and Drug Abuse Patient Records regulations: The Federal rules restrict any use of the information to criminally investigate or prosecute any alcohol or drug abuse patient.[facility] CenterIn the event this information is protected by the Federal Confidentiality of Alcohol and Drug Abuse Patient Records regulations: The Federal rules restrict any use of the information to criminally investigate or prosecute any alcohol or drug abuse patient.[facility] CenterIn the event this information is protected by the Federal Confidentiality of Alcohol and Drug Abuse Patient Records regulations: The Federal rules restrict any use of the information to criminally investigate or prosecute any alcohol or drug abuse patient.[facility] CenterIn the event this information is protected by the Federal Confidentiality of Alcohol and Drug Abuse Patient Records regulations: The Federal rules restrict any use of the information to criminally investigate or prosecute any alcohol or drug abuse patient.[facility] CenterIn the event this information is protected by the Federal Confidentiality of Alcohol and Drug Abuse Patient Records regulations: The Federal rules restrict any use of the information to criminally investigate or prosecute any alcohol or drug abuse patient.[facility] CenterIn the event this information is protected by the Federal Confidentiality of Alcohol and Drug Abuse Patient Records regulations: The Federal rules restrict any use of the information to criminally investigate or prosecute any alcohol or drug abuse patient.[facility] Reason for Visit (unrecogniz ed section and content) Reason Comments Back Pain neck and back pain Reason Comments Cardiology Follow Up Reason Comments Follow Up Hypertension Reason Comments Pain 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 Comments 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 Reason Comments Abdominal Pain 2 m Reason Comments Follow Up Hypertension Reason Comments BP 24 Hour Monitor Evaluation Reason Comments Results Reason Comments Ear Problem Dizziness Specialty Diagnoses / Procedures Referred By Contac t Referred To Contact Diagnoses Other specified hearing loss, unspecified ear Procedures HEARING TEST/AUDIOGRAM COMPRE AUDIOMETRY THRESHOLD ANALISAAL Fabien Simon PA-C [address] [place] [address] [facility] [address] [place] [address] Referral ID Status Reason Start Date Expiration Date V isits Requested Visits Authorized [id number] Closed Auto-Generate d Referral 05/29/2022 08/27/2022 1 [...] RS PT VESTIBULAR DIZZY Fabien Gonzalez PA-C [address] [place] [address] Yanelis French, PT, DPT [address] [facility] [address] [place] [address] Referral ID Status Reason Start Date Expiration Date V isits Requested Visits Authorized [id number] Authorized 07/14/2022 05/06/2023 99 99 Reason Comments Physical Therapy Specialty Diagnoses / Procedures Referred By Contac t Referred To Contact Physical Therapy / PHYSICAL THERAPY Diagnoses Dizziness [R42] Lightheadedness [R42] Procedures PHYSICAL THERAPY EVALUATION HIGH COMPLEX 45 MINS THERAPEUTIC EXERCISES RE, EA 15 MIN. NEW RS PT VESTIBULAR DIZZY Fabien Gonzalez PA-C [address] [place] [address] Yanelis French, PT, DPT [address] [facility] [address] [place] [address] Reason Comments New Patient Reason Comments Radiology CT Specialty Diagnoses / Procedures Referred By Contac t Referred To Contact Radiology / RADIO CT SCAN [facility] Diagnoses CTA ABDOMEN W IVCON Renovascular hypertension [I15.0] Chronic renal failure, stage 3a (HCC) [N18.31] Procedures CTA WWO ABD/PEL 400 Ting Camilo MD [address] [place] [address] [facility] [address] [place] [address] Referral ID Status Reason Start Date Expiration Date Visits Re quested Visits Authorized [id number] Closed 04/28/2021 07/27/2021 1 1 Reason Comments Radiology [place] Specialty Diagnoses / Procedures Referred By Contac t Referred To Contact MOLECULAR & FUNCTIONAL IMAGING Diagnoses Arteritis, Takayasu (HCC) Arterial disease (HCC) Bilateral carotid artery stenosis Subclavian arterial stenosis (HCC) Procedures NM PET/CT WHOLE BODY INITIAL TUMOR IMAG PET W/CONCURNT CT-WHOLE BODY Tiara Lynne MD [address] [place] [address] Molecular & Functional Imaging [address] [place] [address] Referral ID Status Reason Start Date Expiration Date V isits Requested Visits Authorized [id number] Closed Auto-Generate d Referral 04/22/2021 05/06/2021 [address] Specialty Diagnoses / Procedures Referred By Contac t Referred To Contact CT IMAGING Diagnoses Encounter for screening for cardiovascular disorders Procedures CTA NECK W IVCON CTA NECK, W/WO C, W/3D Elliott Salazar MD [id number] Imaging Referral ID Status Reason Start Date Expiration Date V isits Requested Visits Authorized [id number] Closed Auto-Generate d Referral 01/06/2020 02/04/2020 1 [...] August 19, 2023 End: August 19, 2023 Catastrophe Claims Supervisor Relationship Specialty Start Date End Date Stephany Henderson, MAGNAFLUX OPERATOR [address] [place] [address] PCP - General Family Practice 01/26/20 Stephany Henderson, MAGNAFLUX OPERATOR [address] [place] [address] Referring Family Practice 03/17/19 Ting Camilo, [address] [place] [address] Primary Staff Physician Nephrology 06/02/21 Catastrophe Claims Supervisor Relationship Specialty Start Date End Date Stephany Henderson, MAGNAFLUX OPERATOR [address] [place] [address] PCP - General Family Practice 01/26/20 Stephany Henderson, MAGNAFLUX OPERATOR [address] [place] [address] Referring Family Practice 03/17/19 Ting Camilo MD [address] [place] [address] Primary Staff Physician Nephrology 06/02/21 Catastrophe Claims Supervisor Relationship Specialty Start Date End Date Stephany Henderson, MAGNAFLUX OPERATOR [address] [place] [address] PCP - General Family Practice 01/26/20 Stephany Henderson, MAGNAFLUX OPERATOR [address] [place] [address] Referring Family Practice 03/17/19 Ting Camilo MD [address] [place] [address] Primary Staff Physician Nephrology 06/02/21 Catastrophe Claims Supervisor Relationship Specialty Start Date End Date Renetta Ridley, MAGNAFLUX OPERATOR [address] [place] [address] PCP - General Family Practice 09/20/21 Stephany Henderson, MAGNAFLUX OPERATOR [address] [place] [address] Referring Family Practice 03/17/19 Ting Camilo MD [address] [place] [address] Primary Staff Physician Nephrology 06/02/21 Catastrophe Claims Supervisor Relationship Specialty Start Date End Date Renetta Ridley, MAGNAFLUX OPERATOR [address] [place] [address] PCP - General Family Practice 09/20/21 Stephany Henderson, MAGNAFLUX OPERATOR [address] [place] [address] Referring Family Practice 03/17/19 Ting Camilo MD [address] [place] [address] Primary Staff Physician Nephrology 06/02/21 Catastrophe Claims Supervisor Relationship Specialty Start Date End Date Renetta Ridley, MAGNAFLUX OPERATOR [address] [place] [address] PCP - General Family Practice 09/20/21 Stephany Henderson, MAGNAFLUX OPERATOR [address] [place] [address] Referring Family Practice 03/17/19 Ting Camilo MD [address] [place] [address] Primary Staff Physician Nephrology 06/02/21 Catastrophe Claims Supervisor Relationship Specialty Start Date End Date Renetta Ridley, MAGNAFLUX OPERATOR [address] [place] [address] PCP - General Family Practice 09/20/21 Stephany Henderson, MAGNAFLUX OPERATOR [address] [place] [address] Referring Family Practice 03/17/19 Ting Camilo MD [address] [place] [address] Primary Staff Physician Nephrology 06/02/21 Catastrophe Claims Supervisor Relationship Specialty Start Date End Date Renetta Ridley, MAGNAFLUX OPERATOR [address] [place] [address] PCP - General Family Practice 09/20/21 Stephany Henderson, MAGNAFLUX OPERATOR [address] [place] [address] Referring Family Practice 03/17/19 Ting Camilo MD [address] [place] [address] Primary Staff Physician Nephrology 06/02/21 Catastrophe Claims Supervisor Relationship Specialty Start Date End Date Renetta Ridley, MAGNAFLUX OPERATOR [address] [place] [address] PCP - General Family Medicine 09/20/21 Stephany Henderson, MAGNAFLUX OPERATOR [address] [place] [address] Referring Family Medicine 03/17/19 Ting Camilo MD [address] [place] [address] Primary Staff Physician Nephrology 06/02/21 Catastrophe Claims Supervisor Relationship Specialty Start Date End Date Renetta Ridley, MAGNAFLUX OPERATOR [address] [place] [address] PCP - General Family Medicine 09/20/21 Stephany Henderson, MAGNAFLUX OPERATOR [address] [place] [address] Referring Family Medicine 03/17/19 Ting Camilo MD [address] [place] [address] Primary Staff Physician Nephrology 06/02/21 Catastrophe Claims Supervisor Relationship Specialty Start Date End Date Renetta Ridley, MAGNAFLUX OPERATOR [address] [place] [address] PCP - General Family Medicine 09/20/21 Stephany Henderson, MAGNAFLUX OPERATOR [address] [place] [address] Referring Family Medicine 03/17/19 Ting Camilo MD [address] [place] [address] Primary Staff Physician Nephrology 06/02/21 Catastrophe Claims Supervisor Relationship Specialty Start Date End Date Renetta Ridley, MAGNAFLUX OPERATOR [address] [place] [address] PCP - General Family Medicine 09/20/21 Stephany Henderson, MAGNAFLUX OPERATOR [address] [place] [address] Referring Family Medicine 03/17/19 Ting Camilo MD [address] [place] [address] Primary Staff Physician Nephrology 06/02/21 Catastrophe Claims Supervisor Relationship Specialty Start Date End Date Renetta Ridley, MAGNAFLUX OPERATOR [address] [place] [address] PCP - General Family Medicine 09/20/21 Stephany Henderson, MAGNAFLUX OPERATOR [address] [place] [address] Referring Family Medicine 03/17/19 Ting Camilo MD [address] [place] [address] Primary Staff Physician Nephrology 06/02/21 Catastrophe Claims Supervisor Relationship Specialty Start Date End Date Renetta Ridley, MAGNAFLUX OPERATOR [address] [place] [address] PCP - General Family Medicine 09/20/21 Stephany Henderson, MAGNAFLUX OPERATOR [address] [place] [address] Referring Family Medicine 03/17/19 Ting Camilo MD [address] [place] [address] Primary Staff Physician Nephrology 06/02/21 Catastrophe Claims Supervisor Relationship Specialty Start Date End Date Renetta Ridley, MAGNAFLUX OPERATOR [address] [place] [address] PCP - General Family Medicine 09/20/21 Stephany Henderson, MAGNAFLUX OPERATOR [address] [place] [address] Referring Family Medicine 03/17/19 Ting Camilo MD [address] [place] [address] Primary Staff Physician Nephrology 06/02/21 Catastrophe Claims Supervisor Relationship Specialty Start Date End Date Renetta Ridley, MAGNAFLUX OPERATOR [address] [place] [address] PCP - General Family Medicine 09/20/21 Stephany Henderson, MAGNAFLUX OPERATOR [address] [place] [address] Referring Family Medicine 03/17/19 Ting Camilo MD [address] [place] [address] Primary Staff Physician Nephrology 06/02/21 Catastrophe Claims Supervisor Relationship Specialty Start Date End Date RejiRenetta menendez, MAGNAFLUX OPERATOR [address] [place] [address] PCP - General Family Medicine 09/20/21 Stephany Henderson, MAGNAFLUX OPERATOR [address] [place] [address] Referring Family Medicine 03/17/19 Ting Camilo MD [address] [place] [address] Primary Staff Physician Nephrology 06/02/21 Team Status: Inactive Member Role Status Dates Renetta Ridley Primary Care Provider Active Shelton Lala PA-C Emergency Provider Active Team Status: Inactive Member Role Status Dates Renetta Ridley Primary Care Provider Active Terrell Mc DO Emergency Provider Active Catastrophe Claims Supervisor Relationship Specialty Start Date End Date Renetta Ridley, MAGNAFLUX OPERATOR [address] [place] [address] PCP - General Family Medicine 09/20/21 Stephany Henderson, MAGNAFLUX OPERATOR [address] [place] [address] Referring Family Medicine 03/17/19 Ting Camilo MD [address] [place] [address] Primary Staff Physician Nephrology 06/02/21 Catastrophe Claims Supervisor Relationship Specialty Start Date End Date Renetta Ridley, MAGNAFLUX OPERATOR [address] [place] [address] PCP - General Family Medicine 09/20/21 Stephany Henderson, MAGNAFLUX OPERATOR [address] [place] [address] Referring Family Medicine 03/17/19 Ting Camilo MD [address] [place] [address] Primary Staff Physician Nephrology 06/02/21 Catastrophe Claims Supervisor Relationship Specialty Start Date End Date Renetta Ridley, MAGNAFLUX OPERATOR [address] [place] [address] PCP - General Family Medicine 09/20/21 Stephany Henderson, MAGNAFLUX OPERATOR [address] [place] [address] Referring Family Medicine 03/17/19 Ting Camilo MD [address] [place] [address] Primary Staff Physician Nephrology 06/02/21 Catastrophe Claims Supervisor Relationship Specialty Start Date End Date Renetta Ridley, MAGNAFLUX OPERATOR [address] [place] [address] PCP - General Family Medicine 09/20/21 Stephany Henderson, MAGNAFLUX OPERATOR [address] [place] [address] Referring Family Medicine 03/17/19 Ting Camilo MD [address] [place] [address] Primary Staff Physician Nephrology 06/02/21 Catastrophe Claims Supervisor Relationship Specialty Start Date End Date Renetta Ridley, MAGNAFLUX OPERATOR [address] [place] [address] PCP - General Family Medicine 09/20/21 Stephany Henderson, MAGNAFLUX OPERATOR [address] [place] [address] Referring Family Medicine 03/17/19 Ting Camilo MD [address] [place] [address] Primary Staff Physician Nephrology 06/02/21 Catastrophe Claims Supervisor Relationship Specialty Start Date End Date Renetta Ridley, MAGNAFLUX OPERATOR [address] [place] [address] PCP - General Family Medicine 09/20/21 Stephany Henderson, MAGNAFLUX OPERATOR [address] [place] [address] Referring Family Medicine 03/17/19 Ting Camilo MD [address] [place] [address] Primary Staff Physician Nephrology 06/02/21 Catastrophe Claims Supervisor Relationship Specialty Start Date End Date Stephany Henderson MAGNAFLUX OPERATOR [address] [place] [address] PCP - General Family Medicine 01/26/20 09/19/21 Stephany Henderson, MAGNAFLUX OPERATOR [address] [place] [address] Referring Family Medicine 03/17/19 Catastrophe Claims Supervisor Relationship Specialty Start Date End Date Stephany Henderson, MAGNAFLUX OPERATOR [address] [place] [address] PCP - General Family Medicine 01/26/20 09/19/21 Stephany Henderson, MAGNAFLUX OPERATOR [address] [place] [address] Referring Family Medicine 03/17/19 Catastrophe Claims Supervisor Relationship Specialty Start Date End Date Stephany Henderson, MAGNAFLUX OPERATOR [address] [place] [address] PCP - General Family Medicine 01/26/20 09/19/21 Stephany Henderson, MAGNAFLUX OPERATOR [address] [place] [address] Referring Family Medicine 03/17/19 Catastrophe Claims Supervisor Relationship Specialty Start Date End Date Stephany Henderson, MAGNAFLUX OPERATOR [address] [place] [address] Referring Family Medicine 03/17/19 Catastrophe Claims Supervisor Relationship Specialty Start Date End Date Keyur Quarles MD [address] [place] [phone] PCP - General Family Medicine 06/19/23 Renetta Ridley NP [address] [place] [address] Nurse Practitioner Family Medicine 06/19/23 Catastrophe Claims Supervisor Relationship Specialty Start Date End Date Keyur Quarles MD [address] [place] [phone] PCP - General Family Medicine 06/19/23 Renetta Ridley NP [address] [place] [address] Nurse Practitioner Family Medicine 06/19/23 Catastrophe Claims Supervisor Relationship Specialty Start Date End Date Keyur Quarles MD [address] [place] [address] PCP - General Family Medicine 06/19/23 Renetta Ridley NP [address] [place] [id number] Nurse Practitioner [facility] 06/19/23 Catastrophe Claims Supervisor Relationship Specialty Start Date End Date Renetta Ridley APRN-MAGNAFLUX OPERATOR [address] [place], [place] [id number] PCP - General 09/04/23 Goals (unrecognized section [...] BE BASED ON THE PRIMARY CLINICAL RECORDS. [employer] provides no warranty or guarantee of the accuracy or completeness of information in this document.
== END 2024-02-01 13:56 | disposition home or self-care (01) ==
LOC: US 13:56
PROVIDERS: PCP Nurse Practitioner; Visit Provider Nurse Practitioner
DX: E04.1 Nontoxic single thyroid nodule (principal); I65.21 Occlusion and stenosis of right carotid artery
CPT/HCPCS: 76536; 93880

== ENCOUNTER 2024-02-01 15:09 | Emergency (ER) | payer BC, SELFPAY ==
[2024-02-01] VITALS (24 sets, daily range): BP systolic 104–210; BP diastolic 74–141; PULSE 71–87; TEMP 36.8; O2SAT 91–98; BMI 27.4
--- NOTE | 2024-02-01 15:10 | CT_ITS ---
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 COMPARISON: No relevant comparison available. TECHNIQUE: Axial CT images were obtained without IV contrast. Dose reduction techniques were achieved by using automated exposure control and/or adjustment of mA and/or kV according to patient size and/or use of iterative reconstruction technique. FINDINGS: BRAIN: No intracranial hemorrhage, mass, mass effect. Decreased attenuation of the cortical harden matter within the upper anterior frontal lobes bilaterally. CSF SPACES: No hydrocephalus, subarachnoid hemorrhage, or mass. Appropriate for age. SKULL: No fracture, mass, or other significant visible lesion. SINUSES: No significant mucosal thickening or fluid on the limited views. ORBITS: No appreciable abnormality on the limited views. OTHER: Negative CT/CT stroke head/brain wo con IMPRESSION: 1. No intracranial hemorrhage. 2. Bilateral upper anterior frontal lobe irregular harden matter thinning versus loss of harden-white differentiation secondary to mild edema. No appreciable effacement of the sulci or mass effect. 3. No appreciable acute abnormality. Consider follow-up MRI of brain for further evaluation. Findings called to the emergency department via telephone at 3:36 PM Electronically authenticated by: FIOR TORRES Date: 02/01/2024 15:36
--- NOTE | 2024-02-01 15:11 | ECG_ITS ---
The [facility] Test Date: 2024-02-01 Pat Name: CARYN VALERO Department: Room: - Gender: Female Hospital Supervisor: : 1970 Requested By: SHAWN GRAHAM Order Number: [id number] Reading MD: JAZ GLEASON Measurements Intervals [place] Rate: 74 P: 68 NH: 154 QRS: 67 QRSD: 70 T: 52 QT: 372 QTc: 399 Interpretive Statements 1100 Sinus rhythm 8102 Low QRS voltage in chest leads 9120 atypical ECG Compared to ECG 12/27/2020 18:54:55 No significant changes Electronically Signed On 02-01-2024 19:01:16 EDT by JAZ GLEASON
--- OUTSIDE RECORDS SUMMARY | 2024-02-01 15:17 | XMS_ITS | CCD ---
Author Organization [facility] Care Team Providers Care Ingot Header Name Role Phone Joyce VFX ARTIST, Stephany R Unavailable Joyce VFX ARTIST, Stephany R Primary Care Provider Ting Camilo MD Unavailable Aichholz VFX ARTIST, Renetta Rosemary Primary Care Provider Joyce VFX ARTIST, Stephany R Unavailable Ting Camilo MD Unavailable Aichholz VFX ARTIST, Renetta Rosemary Primary Care Provider Joyce VFX ARTIST, Stephany R Unavailable Aichholz VFX ARTIST, Renetta Rosemary Primary Care Provider Joyce VFX ARTIST, Stephany R Unavailable Torres [place], Ting Tim Unavailable Aichholz VFX ARTIST, Renetta Rosemary Primary Care Provider Aichholz, Renetta J Primary Care Provider DO Terrell Mc Emergency Provider [phone] Emergency Provider DR GURMEET PUGH V Consulting Unavailable AICHHOLZ, VFX ARTIST RENETTA Primary Care Unavailable AICHHOLZ, VFX ARTIST RENETTA Attending Unavailable AICHHOLZ, VFX ARTIST RENETTA Admitting Unavailable AICHHOLZ, VFX ARTIST RENETTA Consulting Unavailable AICHHOLZ, VFX ARTIST RENETTA Consulting Unavailable AICHHOLZ, VFX ARTIST RENETTA Primary Care Unavailable AICHHOLZ, VFX ARTIST RENETTA Attending Unavailable AICHHOLZ, VFX ARTIST RENETTA Admitting Unavailable DR GURMEET PUGH V Consulting Unavailable AICHHOLZ, VFX ARTIST RENETTA Primary Care Unavailable AICHHOLZ, VFX ARTIST RENETTA Attending Unavailable AICHHOLZ, VFX ARTIST RENETTA Admitting Unavailable AICHHOLZ, VFX ARTIST RENETTA Consulting Unavailable DR GURMEET PUGH V Consulting Unavailable AICHHOLZ, VFX ARTIST RENETTA Primary Care Unavailable AICHHOLZ, VFX ARTIST RENETTA Attending Unavailable AICHHOLZ, VFX ARTIST RENETTA Admitting Unavailable AICHHOLZ, VFX ARTIST RENETTA Consulting Unavailable AICHHOLZ, VFX ARTIST RENETTA Consulting Unavailable AICHHOLZ, VFX ARTIST RENETTA Primary Care Unavailable AICHHOLZ, VFX ARTIST RENETTA Attending Unavailable AICHHOLZ, VFX ARTIST RENETTA Admitting Unavailable DR FIOR TORRES Consulting Unavailable AICHHOLZ, VFX ARTIST RENETTA Consulting Unavailable AICHHOLZ, VFX ARTIST RENETTA Primary Care Unavailable AICHHOLZ, VFX ARTIST RENETTA Attending Unavailable AICHHOLZ, VFX ARTIST RENETTA Admitting Unavailable DR FIOR TORRES Consulting Unavailable AICHHOLZ, VFX ARTIST RENETTA Consulting Unavailable AICHHOLZ, VFX ARTIST RENETTA Primary Care Unavailable AICHHOLZ, VFX ARTIST RENETTA Attending Unavailable AICHHOLZ, VFX ARTIST RENETTA Admitting Unavailable AICHHOLZ, VFX ARTIST RENETTA Consulting Unavailable AICHHOLZ, VFX ARTIST RENETTA Primary Care Unavailable AICHHOLZ, VFX ARTIST RENETTA Attending Unavailable AICHHOLZ, VFX ARTIST RENETTA Admitting Unavailable AICHHOLZ, VFX ARTIST RENETTA Consulting Unavailable AICHHOLZ, VFX ARTIST RENETTA Primary Care Unavailable AICHHOLZ, VFX ARTIST RENETTA Referring Unavailable AICHHOLZ, VFX ARTIST RENETTA Attending Unavailable AICHHOLZ, VFX ARTIST RENETTA Admitting Unavailable AICHHOLZ, VFX ARTIST RENETTA Consulting Unavailable AICHHOLZ, VFX ARTIST RENETTA Primary Care Unavailable AICHHOLZ, VFX ARTIST RENETTA Referring Unavailable AICHHOLZ, VFX ARTIST RENETTA Attending Unavailable AICHHOLZ, VFX ARTIST RENETTA Admitting Unavailable ANH LÓPEZ Consulting Unavailable ANH LÓPEZ Attending Unavailable ANH LÓPEZ Admitting Unavailable AICHHOLZ, VFX ARTIST RENETTA Primary Care Unavailable Timmy Chavez Unavailable AICHHOLZ, RENETTA ROSEMARY Primary Care Unavailable TING CAMILO Attending Unavailable AICHHOLZ, RENETTA ROSEMARY Primary Care Unavailable MILER, FERMIN Referring Unavailable AICHHOLZ, RENETTA ROSEMARY Primary Care Unavailable MILER, FERMIN Referring Unavailable AICHHOLZ, RENETTA ROSEMARY Primary Care Unavailable AICHHOLZ, RENETTA ROSEMARY Primary Care Unavailable VALENTINA SINGLETARY Attending Unavailable AICHHOLZ, RNEETTA ROSEMARY Primary Care Unavailable TING CAMILO Referring Unavailable KARTHIK ZAARTE Attending Unavailab le AICHHOLZ, RENETTA ROSEMARY Primary [...] Unavailable AICHHOLZ, RENETTA ROSEMARY Referring Unavailable FERMIN EBGUM Attending Unavailable Joyce SHIPLEY, Stephany R Primary Care Provider [phone] Keyur Quarles MD Primary Care Provider Khai MACHINE MAINTENANCE SERVICER, Renetta Unavailable Khai, Renetta J Primary Care Provider DEMETRIS Sofia Emergency Provider Jose Sofia Attending Unavailable Jose Sofia Admitting [...] amLODIPine; Translations: [AMLODIPINE] Drug Allergy 0 Swelling [facility] (10 sources) Penicillins; Translations: [PENICILLINS] Propensity to adverse reactions 2 Rash [facility] Work Phone: (20 sources) Penicillins Propensity to adverse reactions 2 [facility] Work Phone: (1 source) amLODIPine Drug Allergy 1 [facility] Repository (1 source) Penicillins Drug allergy (disorder) 3 [facility] Repository (4 sources) penicillAMINE Drug Allergy 4 Unknown, Unknown Reaction [facility] (4 sources) buPROPion Drug Allergy 4 GI intolerance [facility] Work Phone: (4 sources) Penicillins Propensity to adverse reactions 3 [facility] (4 sources) venlafaxine Drug Allergy 4 GI intolerance [facility] (1 source) amLODIPine Drug Allergy 4 [facility] Repository (1 source) penicillAMINE Drug Allergy 4 [facility] Repository (1 source) Penicillins Drug allergy (disorder) 4 [facility] Repository Medications Current Medications Medication Drug [...] on above: Take 1 capsule by mo [facility] once daily. clopidogrel 75 mg [...] on above: Take 1 capsule by mo [facility] once daily. 72 mcg. meclizine hydrochloride 12.5 mg oral tablet (3 sources) Antiemetic Start: 3 Meclizine Active 12.5 MG PO 2-3 TIMES PER DAY May 12, 2022 1:00am Comment on above: Take 1 tablet by [facility] as needed. omeprazole 20 mg delayed release oral tablet (20 sources) Proton Pump Inhibitor Start: 2 take 40 mg by mouth twice daily Omeprazole Active 40 MG PO Twice daily August 23, 2021 8:48am Start: 08-06-2020 omeprazole ([place] ILOSEC) 20 mg capsule 40 mg once [...] Comment on above: Take 1 tablet by [facility] as needed. Trulance 3mg (3 sources) take [...] 12:00am April 06, 2020 1:26pm estrogens, conjugated ([facility]) 0.45 mg oral tablet (20 sources) Estrogen [...] on above: Take 1 capsule by mo [facility] once daily. pantoprazole 40 mg [...] Discontinued (Side effects) take 1 capsule by [facility] every twelve hours as needed tiZANidine HCl [...] artery disease; Translations: [Atherosclerotic heart disease of [place] coronary artery without angina pectoris] Onset: 2 [...] 08-19-2023 ALT [Catalytic activity/Vol] 25 U/L 7-52 [facility] Albumin [Mass/volume] in Ser um or Plasma by Bromocresol green (BCG) dye binding methoOrdered By: Jose Sofia on 08-19-2023 Albumin BCG dye [Mass/Vol] 4.0 g/dL 3.5-5.7 [facility] Alkaline phosphatase [Enzyma tic activity/volume] in Serum or PlasmaOrdered By: Jose Sofia on 08-19-2023 ALP [Catalytic activity/Vol] 64 U/L 34-104 [facility] Aspartate aminotransferase [ Enzymatic activity/volume] in Serum or PlasmaOrdered By: Jose Sofia on 08-19-2023 AST [Catalytic activity/Vol] 21 U/L 13-39 [facility] Automated erythrocytes count in urine sediment (number/area)Ordered By: Jose Sofia on 08-19-2023 RBC Auto (Urine sed) [#/Area] 3-4 [HPF] 0-4 [facility] Automated leukocytes count i n urine sediment (number/area)Ordered By: Jose Sofia on 08-19-2023 WBC Auto (Urine sed) [#/Area] 3-4 [HPF] 0-4 [facility] Basophils Auto (Bld) [#/Vol] Ordered By: Jose Sofia on 08-19-2023 Basophils (Bld) [#/Vol] 0.0 10*3/uL 0.0-0.2 [facility] Basophils/100 WBC Auto (Bld) Ordered By: Jose Sofia on 08-19-2023 Basophils/100 WBC (Bld) 0.3 % . [facility] Bilirubin Test strip Ql (U)O rdered By: Jose Sofia on 08-19-2023 Bilirubin Ql (U) 1+ Negative [facility] Bilirubin.direct [Mass/volum e] in Serum or PlasmaOrdered By: Jose Sofia on 08-19-2023 Bilirubin.direct [Mass/Vol] 0.10 mg/dL 0.03-0.18 [facility] Bilirubin.total [Mass/volume ] in Serum or PlasmaOrdered By: Jose Sofia on 08-19-2023 Bilirubin [Mass/Vol] 0.8 mg/dL 0.3-1.[facility] CT abdomen pelvis w conon CT abdomen pelvis w con [facility] [address] CT Scan Report Signed Patient: Regla Prajapati MR#: [id number] : [id number] Acct:[id number] Age/Sex: 52 / F ADM Date: 08/19/23 Loc: ER Room: Type: [facility] ER Attending Dr: Copies to: [...] Vik Dupont M.D.08/19/2023 4:00 PM Dictation Location: [place] [address] Transcribed By: [facility] 08/19/23 1600 Dictated By: Vik Dupont II, MD 08/19/23 1553 Signed By: 08/19/23 1600 Normal [facility] Calcium [Mass/volume] in Ser um or PlasmaOrdered By: Jose Sofia on 08-19-2023 Calcium [Mass/Vol] 8.9 mg/dL 8.6-10.3 [facility] Carbon dioxide, total [Moles /volume] in Serum or PlasmaOrdered By: Jose Sofia on 08-19-2023 CO2 [Moles/Vol] 26.4 mmol/L 21.0-31.0 [facility] Chloride [Moles/volume] in S yariel or PlasmaOrdered By: Jose Sofia on 08-19-2023 Chloride [Moles/Vol] 100 mmol/L 98-107 [facility] Color Auto (U)Ordered By: Abdiel Sofia on 08-19-2023 Color (U) Dark yellow Yellow [facility] Complete Blood Count Auto Di ffon 08-19-2023 Basophils (Bld) [#/Vol] 0.0 10*3/uL Normal 0.0-0.2 [facility] Comment on above: Result Comment: PERF ORMED BY: [place] [address] PATHOLOGIST WATER LEAK REPAIRER RAMONE CONTRERAS M.D. Performed By: #### C BC, MG, LIPASE, HEPATIC, CMP #### [address] Basophils/100 WBC (Bld) 0.3 % Normal . [facility] Comment on above: Performed By: #### C BC, MG, LIPASE, HEPATIC, CMP #### [address] Eosinophils (Bld) [#/Vol] 0.0 10*3/uL Normal 0.0-0.45 [facility] Comment on above: Performed By: #### C BC, MG, LIPASE, HEPATIC, CMP #### [address] Eosinophils/100 WBC (Bld) 0.1 % Normal . [facility] Comment on above: Performed By: #### C BC, MG, LIPASE, HEPATIC, CMP #### [address] Erythrocyte distribution width (RBC) [Ratio] 13.6 % Normal 11.9-15.3 [facility] Comment on above: Performed By: #### C BC, MG, LIPASE, HEPATIC, CMP #### [address] Hematocrit (Bld) [Volume fraction] 42.3 % Normal 34.0-46.4 [facility] Comment on above: Performed By: #### C BC, MG, LIPASE, HEPATIC, CMP #### [address] Hemoglobin (Bld) [Mass/Vol] 13.7 g/dL Normal 11.8-15.4 [facility] Comment on above: Performed By: #### C BC, MG, LIPASE, HEPATIC, CMP #### [address] Lymphocytes (Bld) [#/Vol] 1.1 10*3/uL Normal 1.00-4.8 [facility] Comment on above: Performed By: #### C BC, MG, LIPASE, HEPATIC, CMP #### [address] Lymphocytes/100 WBC (Bld) 11.0 % Normal . [facility] Comment on above: Performed By: #### C BC, MG, LIPASE, HEPATIC, CMP #### [address] MCH (RBC) [Entitic mass] 29.8 pg Normal 24.7-34.3 [facility] Comment on above: Performed By: #### C BC, MG, LIPASE, HEPATIC, CMP #### [address] MCV (RBC) [Entitic vol] 92.4 fL Normal 80-100 [facility] Comment on above: Performed By: #### C BC, MG, LIPASE, HEPATIC, CMP #### [address] Mean Corpuscular HGB Conc 32.2 g/dL Normal 32.0-35.0 [facility] Comment on above: Performed By: #### C BC, MG, LIPASE, HEPATIC, CMP #### [address] Monocytes (Bld) [#/Vol] 0.5 10*3/uL Normal 0.0-0.8 [facility] Comment on above: Performed By: #### C BC, MG, LIPASE, HEPATIC, CMP #### [address] Monocytes/100 WBC (Bld) 24.94 % High 0.00-20.00 [facility] Comment on above: Result Comment: For adults in ED, MDW > 20.0 may be associated with a higher risk of sepsis during the first 12 hrs of hospital admission Performed By: #### C BC, MG, LIPASE, HEPATIC, CMP #### [address] Monocytes/100 WBC (Bld) 5.1 % Normal . [facility] Comment on above: Performed By: #### C BC, MG, LIPASE, HEPATIC, CMP #### [address] Neutrophils (Bld) [#/Vol] 8.0 10*3/uL High 1.8-7.7 [facility] Comment on above: Performed By: #### C BC, MG, LIPASE, HEPATIC, CMP #### [address] Neutrophils/100 WBC (Bld) 83.5 % Normal . [facility] Comment on above: Performed By: #### C BC, MG, LIPASE, HEPATIC, CMP #### [address] NRBC% 0.0 /100{WBC} Normal 0-0.5 [facility] Comment on above: Performed By: #### C BC, MG, LIPASE, HEPATIC, CMP #### [address] Platelet mean volume (Bld) [Entitic vol] 7.0 fL Normal 6.3-10.7 [facility] Comment on above: Performed By: #### C BC, MG, LIPASE, HEPATIC, CMP #### [address] Platelets (Bld) [#/Vol] 226 10*3/uL Normal 150-450 [facility] Comment on above: Performed By: #### C BC, MG, LIPASE, HEPATIC, CMP #### [address] RBC (Bld) [#/Vol] 4.58 10*6/uL Normal 3.60-5.00 [facility] Comment on above: Performed By: #### C BC, MG, LIPASE, HEPATIC, CMP #### [address] WBC (Bld) [#/Vol] 9.6 10*3/uL Normal 3.8-11.6 [facility] Comment on above: Performed By: #### C BC, MG, LIPASE, HEPATIC, CMP #### [facility] [address] Comprehensive Metabolic Pane jenn 08-19-2023 Albumin [Mass/Vol] 4.0 g/dL Normal 3.5-5.7 [facility] Comment on above: Performed By: #### C BC, MG, LIPASE, HEPATIC, CMP #### [address] Albumin/Globulin [Mass ratio] 1.4 {ratio} Normal [facility] Comment on above: Performed By: #### C BC, MG, LIPASE, HEPATIC, CMP #### [address] ALP [Catalytic activity/Vol] 64 U/L Normal 34-104 [facility] Comment on above: Performed By: #### C BC, MG, LIPASE, HEPATIC, CMP #### [address] ALT [Catalytic activity/Vol] 25 U/L Normal 7-52 [facility] Comment on above: Performed By: #### C BC, MG, LIPASE, HEPATIC, CMP #### [address] Anion gap [Moles/Vol] 14.5 mmol/L Normal 6.0-15.0 [facility] Comment on above: Performed By: #### C BC, MG, LIPASE, HEPATIC, CMP #### [address] AST [Catalytic activity/Vol] 21 U/L Normal 13-39 [facility] Comment on above: Performed By: #### C BC, MG, LIPASE, HEPATIC, CMP #### [place] [address] [place] Bilirubin [Mass/Vol] 0.8 mg/dL Normal 0.3-1.0 [facility] Comment on above: Performed By: #### C BC, MG, LIPASE, HEPATIC, CMP #### [place] [address] [place] Calcium [Mass/Vol] 8.9 mg/dL Normal 8.6-10.3 [facility] Comment on above: Performed By: #### C BC, MG, LIPASE, HEPATIC, CMP #### [address] Chloride [Moles/Vol] 100 mmol/L Normal 98-107 [facility] Comment on above: Performed By: #### C BC, MG, LIPASE, HEPATIC, CMP #### [address] CO2 [Moles/Vol] 26.4 mmol/L Normal 21.0-31.0 [facility] Comment on above: Performed By: #### C BC, MG, LIPASE, HEPATIC, CMP #### [address] Creatinine [Mass/Vol] 1.04 mg/dL Normal 0.60-1.20 [facility] Comment on above: Performed By: #### C BC, MG, LIPASE, HEPATIC, CMP #### [address] Creatinine Clr Calc Pharmacy 58.25 Normal [facility] Comment on above: Performed By: #### C BC, MG, LIPASE, HEPATIC, CMP #### [address] GFR/1.73 sq M.predicted MDRD (S/P/Bld) [Vol rate/Area] mL/min/{1.73_m2} Normal [facility] Comment on above: Performed By: #### C BC, MG, LIPASE, HEPATIC, CMP #### [address] Globulin (S) [Mass/Vol] 2.8 g/dL Normal [facility] Comment on above: Performed By: #### C BC, MG, LIPASE, HEPATIC, CMP #### [address] Glucose [Mass/Vol] 119 mg/dL High 70-100 [facility] Comment on above: Result Comment: [facility] Glucose Reference Range is dependent on time and content of last meal. Glucose of more than 200 mg/dL in a nonstressed, ambulatory subject supports the diagnosis of Diabetes Mellitus. ADA recommended reference range Performed By: #### C BC, MG, LIPASE, HEPATIC, CMP #### [address] Potassium [Moles/Vol] 3.9 mmol/L Normal 3.5-5.1 [facility] Comment on above: Performed By: #### C BC, MG, LIPASE, HEPATIC, CMP #### [address] Protein [Mass/Vol] 6.8 g/dL Normal 6.4-8.9 [facility] Comment on above: Performed By: #### C BC, MG, LIPASE, HEPATIC, CMP #### [address] Sodium [Moles/Vol] 137 mmol/L Normal 136-145 [facility] Comment on above: Performed By: #### C BC, MG, LIPASE, HEPATIC, CMP #### [address] Urea nitrogen [Mass/Vol] 18 mg/dL Normal 7-25 [facility] Comment on above: Performed By: #### C BC, MG, LIPASE, HEPATIC, CMP #### [address] Creatinine [Mass/volume] in Serum or PlasmaOrdered By: Jose Sofia on 08-19-2023 Creatinine [Mass/Vol] 1.04 mg/dL 0.60-1.20 [facility] Dipstick and Microscopicon 0 08-19-2023 Appearance (U) Cloudy Critically abnormal Clear [facility] Comment on above: Order Comment: Name Collection Type:: Voided Performed By: #### A DDONUAPLUS #### [address] Bacteria,Urine None Seen Normal None Seen [facility] Comment on above: Order Comment: Name Collection Type:: Voided Performed By: #### A DDONUAPLUS #### [place] [address] [place] Bilirubin,Urine 1+ High Negative [facility] Comment on above: Order Comment: Name Collection Type:: Voided Performed By: #### A DDONUAPLUS #### [address] Color (U) Dark Yellow Critically abnormal Yellow [facility] Comment on above: Order Comment: Name Collection Type:: Voided Performed By: #### A DDONUAPLUS #### [address] Glucose Ql (U) Normal Normal Normal [facility] Comment on above: Order Comment: Name Collection Type:: Voided Performed By: #### A DDONUAPLUS #### [address] Hyaline Casts,Urine 0-8 Normal 0-8 [facility] Comment on above: Order Comment: Name Collection Type:: Voided Result Comment: PERF ORMED BY: [place] [address] PATHOLOGIST WATER LEAK REPAIRER RAMONE CONTRERAS M.D. Performed By: #### A DDONUAPLUS #### [address] Ketones Ql (U) Trace High Negative [facility] Comment on above: Order Comment: Name Collection Type:: Voided Performed By: #### A DDONUAPLUS #### [place] [address] [place] Leukocyte esterase Test strip Ql (U) Negative Normal Negative [facility] Comment on above: Order Comment: Name Collection Type:: Voided Performed By: #### A DDONUAPLUS #### [place] [address] [place] Nitrite,Urine Negative Normal Negative [facility] Comment on above: Order Comment: Name Collection Type:: Voided Performed By: #### A DDONUAPLUS #### [place] [address] [place] Occult Blood,Urine Negative Normal Negative [facility] Comment on above: Order Comment: Name Collection Type:: Voided Result Comment: PERF ORMED BY: [place] [address] PATHOLOGIST WATER LEAK REPAIRER RAMONE CONTRERAS M.D. Performed By: #### A DDONUAPLUS #### [address] pH (U) 5.5 [pH] Normal 5.0-9.0 [facility] Comment on above: Order Comment: Name Collection Type:: Voided Performed By: #### A DDONUAPLUS #### [address] Protein,Urine Trace High Negative [facility] Comment on above: Order Comment: Name Collection Type:: Voided Performed By: #### A DDONUAPLUS #### [address] RBC,Urine 3-4 Normal 0-4 [facility] Comment on above: Order Comment: Name Collection Type:: Voided Performed By: #### A DDONUAPLUS #### [place] [address] [place] Specificy Plover,Urine 1.028 Normal 1.001-1.030 [facility] Comment on above: Order Comment: Name Collection Type:: Voided Performed By: #### A DDONUAPLUS #### [place] [address] [place] Squamous Epithelial Cell,Urine 5-9 High 0-2 [facility] Comment on above: Order Comment: Name Collection Type:: Voided Performed By: #### A DDONUAPLUS #### [place] [address] [place] Urobilinogen,Urine Normal Normal Normal [facility] Comment on above: Order Comment: Name Collection Type:: Voided Performed By: #### A DDONUAPLUS #### [place] [address] [place] WBC,Urine 3-4 Normal 0-4 [facility] Comment on above: Order Comment: Name Collection Type:: Voided Performed By: #### A DDONUAPLUS #### [facility] [address] Eosinophils Auto (Bld) [#/Vo l]Ordered By: Jose Sofia on 08-19-2023 Eosinophils (Bld) [#/Vol] 0.0 10*3/uL 0.0-0.45 [facility] Eosinophils/100 WBC Auto (Bl d)Ordered By: Jose Sofia on 08-19-2023 Eosinophils/100 WBC (Bld) 0.1 % . [facility] Erythrocyte distribution wid th Auto (RBC) [Ratio]Ordered By: Jose Sofia on 08-19-2023 Erythrocyte distribution width (RBC) [Ratio] 13.6 % 11.9-15.3 [facility] Globulin Calc (S) [Mass/Vol] Ordered By: Jose Sofia on 08-19-2023 Globulin (S) [Mass/Vol] 2.8 g/dL [facility] Glucose [Mass/volume] in Ser um or PlasmaOrdered By: Jose Sofia on 08-19-2023 Glucose [Mass/Vol] 119 mg/dL 70-100 [facility] Comment on above: ADA recommended refe rence rangeRandom Glucose Reference Range is dependent on time and content of last meal. Glucose of more than 200 mg/dL in a nonstressed, ambulatory subject supports the diagnosis of Diabetes Mellitus. Hematocrit Auto (Bld) [Volum e fraction]Ordered By: Jose Sofia on 08-19-2023 Hematocrit (Bld) [Volume fraction] 42.3 % 34.0-46.4 [facility] Hemoglobin [Mass/volume] in BloodOrdered By: Jose Sofia on 08-19-2023 Hemoglobin (Bld) [Mass/Vol] 13.7 g/dL 11.8-15.4 [facility] Hepatic Panelon 08-19-2023 Bilirubin,Indirect 0.7 mg/dL Normal [facility] Comment on above: Performed By: #### C BC, MG, LIPASE, HEPATIC, CMP #### [facility] [address] Bilirubin.indirect [Mass/Vol] 0.10 mg/dL Normal 0.03-0.18 [facility] Comment on above: Performed By: #### C BC, MG, LIPASE, HEPATIC, CMP #### [facility] [address] [place] [address] Ketones Auto test strip (U) [Mass/Vol]Ordered By: Jose Sofia on 08-19-2023 Ketones (U) [Mass/Vol] Trace Negative [facility] - UrinalysisOrder ed By: Jose Sofia on 08-19-2023 Hyaline casts LM Ql (Urine sed) 0-8 [LPF] 0-8 [facility] Leukocytes [#/volume] correc flo for nucleated erythrocytes in Blood by Automated counOrdered By: Jose Sofia on 08-19-2023 WBC corrected for nucl RBC Auto (Bld) [#/Vol] 9.6 10*3/uL 3.8-11.6 [facility] Lipaseon 08-19-2023 Lipase [Catalytic activity/Vol] 15.0 U/L Normal 11.0-82.0 [facility] Comment on above: Result Comment: PERF ORMED BY: [place] [address] PATHOLOGIST WATER LEAK REPAIRER RAMONE CONTRERAS M.D. Performed By: #### C BC, MG, LIPASE, HEPATIC, CMP #### [facility] [address] [place] [id number] Lipase [Enzymatic activity/v olume] in Serum or PlasmaOrdered By: Jose Sofia on 08-19-2023 Lipase [Catalytic activity/Vol] 15.0 U/L 11.0-82.0 [facility] Lymphocytes Auto (Bld) [#/Vo l]Ordered By: Jose Sofia on 08-19-2023 Lymphocytes (Bld) [#/Vol] 1.1 10*3/uL 1.00-4.8 [facility] Lymphocytes/100 WBC Auto (Bl d)Ordered By: Jose Sofia on 08-19-2023 Lymphocytes/100 WBC (Bld) 11.0 % . [facility] MCH Auto (RBC) [Entitic mass ]Ordered By: Jose Sofia on 08-19-2023 MCH (RBC) [Entitic mass] 29.8 pg 24.7-34.3 [facility] MCHC Auto (RBC) [Mass/Vol]Or dered By: Jose Sofia on 08-19-2023 MCHC (RBC) [Mass/Vol] 32.2 g/dL 32.0-35.0 [facility] MCV Auto (RBC) [Entitic vol] Ordered By: Jose Sofia on 08-19-2023 MCV (RBC) [Entitic vol] 92.4 fL 80-100 F [facility] Magnesiumon 08-19-2023 Magnesium [Mass/Vol] 1.3 mg/dL Low 1.9-2.7 [facility] Comment on above: Performed By: #### C BC, MG, LIPASE, HEPATIC, CMP #### [facility] [address] [place] [address] Magnesium [Mass/volume] in S yariel or PlasmaOrdered By: Jose Sofia on 08-19-2023 Magnesium [Mass/Vol] 1.3 mg/dL 1.9-2.7 [facility] Monocyte distribution width [Entitic volume] in Blood by AutomatedOrdered By: Jose Sofia on 08-19-2023 Monocyte distribution width Auto (Bld) [Entitic vol] 24.94 % 0.00-20.00 [facility] Comment on above: For adults in ED, MD W > 20.0 may be associated with a higher risk of sepsis during the first 12 hrs of hospital admission Monocytes Auto (Bld) [#/Vol] Ordered By: Jose Sofia on 08-19-2023 Monocytes (Bld) [#/Vol] 0.5 10*3/uL 0.0-0.8 [facility] Monocytes/100 WBC Auto (Bld) Ordered By: Jose Sofia on 08-19-2023 Monocytes/100 WBC (Bld) 5.1 % . [facility] Neutrophils Auto (Bld) [#/Vo l]Ordered By: Jose Sofia on 08-19-2023 Neutrophils (Bld) [#/Vol] 8.0 10*3/uL 1.8-7.7 [facility] Neutrophils/100 WBC Auto (Bl d)Ordered By: Jose Sofia on 08-19-2023 Neutrophils/100 WBC (Bld) 83.5 % . [facility] Nitrite Test strip Ql (U)Ord ered By: Jose Sofia on 08-19-2023 Nitrite Ql (U) Negative Negative [facility] No Panel InformationOrdered By: Jose Sofia on 08-19-2023 Estimated GFR (CKD-EPI) > 60.0 mL/Min [facility] Creatinine Clearance (Chem 58.25 [facility] Nucleated erythrocytes [Pres ence] in Blood by Automated countOrdered By: Jose Sofia on 08-19-2023 Nucleated RBC Auto Ql (Bld) 0.0 /100{WBC} 0-0.5 [facility] Platelet mean volume Auto (B ld) [Entitic vol]Ordered By: Jose Sofia on 08-19-2023 Platelet mean volume (Bld) [Entitic vol] 7.0 fL 6.3-10.7 [facility] Platelets Auto (Bld) [#/Vol] Ordered By: Jose Sofia on 08-19-2023 Platelets (Bld) [#/Vol] 226 10*3/uL 150-450 [facility] Potassium [Moles/volume] in Serum or PlasmaOrdered By: Jose Sofia on 08-19-2023 Potassium [Moles/Vol] 3.9 mmol/L 3.5-5.1 [facility] Protein Auto test strip (U) [Mass/Vol]Ordered By: Jose Sofia on 08-19-2023 Protein (U) [Mass/Vol] Trace mg/dL Negative [facility] Protein [Mass/volume] in Ser um or PlasmaOrdered By: Jose Sofia on 08-19-2023 Protein [Mass/Vol] 6.8 g/dL 6.4-8.9 [facility] RBC Auto (Bld) [#/Vol]Ordere d By: Jose Sofia on 08-19-2023 RBC (Bld) [#/Vol] 4.58 10*6/uL 3.60-5.00 [facility] Serum or plasma albumin/glob ulin mass ratioOrdered By: Jose Sofia on 08-19-2023 Albumin/Globulin [Mass ratio] 1.4 {ratio} [facility] Serum or plasma anion gap de terminationOrdered By: Jose Sofia on 08-19-2023 Anion gap [Moles/Vol] 14.5 [facility] Serum or plasma non-glucuron idated bilirubin measurement (mass/volume)Ordered By: Jose Sofia 08-19-2023 Bilirubin.indirect [Mass/Vol] 0.7 mg/dL [facility] Sodium [Moles/volume] in Ser um or PlasmaOrdered By: Jose Sofia 08-19-2023 Sodium [Moles/Vol] 137 mmol/L 136-145 [facility] Specific gravity Auto test s trip (U) [Rel density]Ordered By: Jose Sofia 08-19-2023 Specific gravity (U) [Rel density] 1.028 1.001-1.030 [facility] Squamous epithelial cells de tection in urine sediment by light microscopyOrdered By: Jose Sofia 08-19-2023 Epithelial cells.squamous LM Ql (Urine sed) 5-9 [HPF] 0-2 [facility] Urea nitrogen [Mass/volume] in Serum or PlasmaOrdered By: Jose Sofia 08-19-2023 Urea nitrogen [Mass/Vol] 18 mg/dL 7-25 [facility] Urine bacteria detection by automated methodOrdered By: Jose Sofia 08-19-2023 Bacteria Auto Ql (U) None seen None Seen [facility] Urine clarity by refractomet ry automatedOrdered By: Jose Sofia 08-19-2023 Clarity Refractometry automated (U) Cloudy Clear [facility] Urine glucose measurement by automated test strip (mass/volume)Ordered By: Jose Sofia 08-19-2023 Glucose Auto test strip (U) [Mass/Vol] Normal mg/dL Normal [facility] Urine hemoglobin detection b y automated test stripOrdered By: Jose Sofia 08-19-2023 Hemoglobin Auto test strip Ql (U) Negative Negative [facility] Urine leukocyte esterase det ection by automated test stripOrdered By: Jose Sofia on 08-19-2023 Leukocyte esterase Auto test strip Ql (U) Negative Negative [facility] Urobilinogen Auto test strip (U) [Mass/Vol]Ordered By: Jose Sofia on 08-19-2023 Urobilinogen (U) [Mass/Vol] Normal mg/dL Normal [facility] WBC Auto (Bld) [#/Vol]Ordere d By: Jose Sofia on 08-19-2023 WBC (Bld) [#/Vol] 9.6 10*3/uL 3.8-11.6 [facility] pH Auto test strip (U)Ordere d By: Jose Sofia on 08-19-2023 pH (U) 5.5 [pH] 5.0-9.0 [facility] MICROALB CREAT RATIO RAN DOMon 06-20-2023 CREATININE URINE RANDOM 109.18 mg/dL 20.0 0 - 300.00 mg/dL [facility] MICROALBUM CREATININE RATIO UR 11.9 mg/g 0.0 - 29.9 mg/g [facility] Comment on above: NO MICROALBUMINURIA 0-29 MG/G CLINICAL MICROALBUMINURIA 30-300 MG/G MACROALBUMINURIA >300 MG/G MICROALBUMIN URINE RANDOM <1.3 NINF - 30.0 mg/dL [facility] CLINISYNC [facility] CNOVon 09-01-2022 CNOV Office Visit (NEURAV ) REGLA PRAJAPATI ([id number]) 1970 F Date Time Provider Department 09/01/22 11:30 AM KARTHIK ZARATE During your visit today, we recorded the following information about you: Pulse Blood pressure 73/minute 114/82 Karthik Zarate DO 09/02/2022 12:40 PM Signed [facility] [place] New Patient Consultation to this clinic, previously [...] daily. (more content not included)... Normal [facility] CNPMelany 08-03-2022 CNPN Telephone ([facility]) REGLA PRAJAPATI ([id number]) 1970 F Date Time Provider Department 08/03/22 FERMIN BEGUM [facility] During your visit today, we recorded [...] evaluation [facility] Nicole Mackay RN 08/04/2022 2:39 PM Signed ED is good. Plavix is hard to stop for her, but if risks outweigh benefits given her issues with bleeding, then reasonable risk to take. RM Called dentist left message regarding above-Dr. Robert Matthew [phone] Also see my chart message to pt [...] Encounter Status:Closed by NICOLE BARILLAS on 08/04/[address] [facility] CNTHERAPYon 07-27-2022 CNTHERAPY OT/PT/Speech Visit (PTAMCF) REGLA PRAJAPATI ([id number]) 1970 F Date Time Provider Department 07/27/22 1:00 PM ISHA [facility] Date Time Provider Department Orient 07/27/2022 1:00 PM [id number], KARA [facility] Reason for Visit: Physical Therapy [503] Primary [...] Take 1 capsule by mouth once daily. [facility] CNOVon 07-26-2022 CNOV Office Visit (KENDELL ) REGLA PRAJAPATI ([id number]) 1970 F Date Time Provider Department 07/26/22 12:30 PM CARMEN LOMBARDI During your visit today, we recorded the following information about you: Carmen Lombardi, AUD 07/26/2022 3:59 PM Signed [facility] Laboratory Vestibular Test Battery Report Name: Regla Prajapati [facility]#: [id number] Date of Service: 07/26/2022 Date of : 1970 Age: [age] year old Referred by: Fabien Gonzalez PA-C And is a patient of Renetta Ridley CNP, QUINTEN Referred for: Evaluation of suspected change in hearing, tinnitus, or balance. Referral documented: In an order in [facility] Pretest Instructions: The following pretest instructions were [...] ling (more content not included)... Normal [facility] ECHOon 07-21-2022 Echocardiography Echocardiography Report: Transthoracic Echo [facility] Date of service: 07/21/2022 12:54:19 PM Ordering physician: TING CAMILO Indication: Abnormal ECG [...] * * * Final * * * [facility] : [id number] Normal [facility] CNTHERAPYon 07-19-2022 CNTHERAPY OT/PT/Speech Visit (MAGDALENO) REGLA PRAJAPATI ([id number]) 1970 F Date Time Provider Department 07/19/22 2:45 PM YANELIS FRENCH Date Time Provider Department Center 07/19/2022 2:45 PM [id number] FRENCH [facility] Reason for Visit: PT Eval [...] 1 capsule by mouth once daily. Normal [facility] MAMM SCREEN 3D RENETTA CADon 03-09-2023 MG MAMM SCREEN 3D RENETTA CAD Patient: REGLA PRAJAPATI Exam Date: 07/13/2022 : 1970 Gender:F Ordering : QUINTEN RENETTA RIDLEY VFX ARTIST Admission #: [id number] Family : Order #: [id number] CLICK HERE TO VIEW EXAM RADIOLOGY REPORT [...] pancreas/lung cancer at age 52. LOCATION: [facility] BREAST COMPOSITION: Heterogeneously dense,which may obscure [...] M.D. on 07/14/2022 at 07:50 Normal [facility] CNOVon 07-12-2022 CNOV Office Visit (OTOLLN ) ALOREGLA Li ([id number]) 1970 F Date Time Provider Department 07/12/22 10:30 AM FABIEN GONZALEZ During your visit today, we recorded the following information about you: Temperature Pulse Blood pressure 98.7 degrees 95/minute 119/88 Fabien Gonzalez PA-C 07/12/2022 12:48 PM Signed [facility] NOTE CC: Regla Prajapati is a [...] bone conduction and speech recognition testing. CPT code:29557 RIGHT EAR: Hearing Sensitivity: Hearing sensitivity within [...] tiZAN (more content not included)... Normal [facility] CNOV Office Visit (OTAULO ) REGLA PRAJAPATI ([id number]) 1970 F Date Time Provider Department 07/12/22 10:00 AM VALENTINA SINGLETARY During your visit today, we recorded the following information about you: Weston Cotton, CCC-A 07/12/2022 10:25 AM Signed [facility] AUDIOLOGIC EVALUATION REPORT Name: Regla Prajapati [facility]#: [id number] Date of Service: 07/12/2022 Date of : 1970 Age: [age] year old Referred by: Fabien Gonzalez [id number] [facility] [place] [address] Referred for: Evaluation of the cause of disorder of hearing, tinnitus, or balance. Referral documented: In an order in [facility] Patient's major complaints: Complaints of recent history [...] evaluation of middle ear function. CPT code: 30234 RIGHT EAR: Normal ME pressure and TM compliance (mobility). LEFT EAR: Normal ME pressure and TM compliance (mobility). ACOUSTIC REFLEXES Description of procedure: This test is an objective measure of auditory and facial nerve pathways. CPT code: 78012, 26170 RIGHT EAR PROBE EAR: (ipsi right stimulus [...] bone conduction and speech recognition testing. CPT code:40053 RIGHT EAR: Hearing Sensitivity: Hearing sensitivity within [...] to proceed with obtaining hearing aids through [facility] Audiology Section. 3. Annual recheck. 4. Hearing conservation. 5. The patient was counseled and given written information regarding effective communication strategies to enhance communication ability. 6. The patient was counseled and given written educational information re: the relationship between hearing loss and tinnitus, as well as, other common causes of tinnitus and options for tinnitus management. Beni Cotton, GRAYSON/A Clinical Scraper Operator GROVES Abbrev- iation Definition Degree of hearing sensitivity dB range WNL within normal limits WNL 0 - 20 SNHL sensori (more content not included)... Normal [facility] CNPNon 07-04-2022 CNPN Telephone ([facility]) REGLA PRAJAPATI ([id number]) 1970 F Date Time Provider Department 07/04/22 [...] by TING CAMILO on 07/04/22 Normal [facility] Basophils Auto (Bld) [#/Vol] Ordered By: Shahzad Obrien on 06-25-2022 Basophils (Bld) [#/Vol] 0.0 10*3/uL 0.0-0.2 [facility] Basophils/100 WBC Auto (Bld) Ordered By: Shahzad Obrien on 06-25-2022 Basophils/100 WBC (Bld) 0.3 % . F [facility] Body fluid albumin measureme nt (mass/volume)Ordered By: Shahzad Obrien on 06-25-2022 Albumin (Body fld) [Mass/Vol] 4.3 g/dL 3.2-5.5 [facility] Creatinine and Glomerular fi ltration rate.predicted panel (S/P/Bld)Ordered By: Shahzad Obrien on 06-25-2022 Creatinine [Mass/Vol] 1.17 mg/dL 0.44-1.03 [facility] Eosinophils Auto (Bld) [#/Vo l]Ordered By: Shahzad Obrien on 06-25-2022 Eosinophils (Bld) [#/Vol] 0.0 10*3/uL 0.0-0.45 [facility] Eosinophils/100 WBC Auto (Bl d)Ordered By: Shahzad Obrien on 06-25-2022 Eosinophils/100 WBC (Bld) 0.3 % . [facility] Erythrocyte distribution wid th Auto (RBC) [Ratio]Ordered By: Shahzad Obrien on 06-25-2022 Erythrocyte distribution width (RBC) [Ratio] 13.2 % 11.9-15.3 [facility] Estimated glomerular filtrat ion rate (GFR) non- AmericanOrdered By: Shahzad Obrien on 06-25-2022 GFR/1.73 sq M.predicted among non-blacks MDRD (S/P/Bld) [Vol rate/Area] 49 mL/Min [facility] Globulin Calc (S) [Mass/Vol] Ordered By: Shahzad Obrien on 06-25-2022 Globulin (S) [Mass/Vol] 3.1 g/dL [facility] Hematocrit Auto (Bld) [Volum e fraction]Ordered By: Shahzad Obrien on 06-25-2022 Hematocrit (Bld) [Volume fraction] 41.9 % 34.0-46.4 [facility] Hemoglobin [Mass/volume] in BloodOrdered By: Shahzad Obrien on 06-25-2022 Hemoglobin (Bld) [Mass/Vol] 13.8 g/dL 11.8-15.4 [facility] Laboratory - Chemistry and C hemistry - challengeOrdered By: Shelton Lala on 06-25-2022 Lipase [Catalytic activity/Vol] 36.0 U/L 22-51 [facility] Leukocytes [#/volume] correc flo for nucleated erythrocytes in Blood by Automated counOrdered By: Shahzad Obrien on 06-25-2022 WBC corrected for nucl RBC Auto (Bld) [#/Vol] 12.4 10*3/uL 3.8-11.6 [facility] Lymphocytes Auto (Bld) [#/Vo l]Ordered By: Shahzad Obrien on 06-25-2022 Lymphocytes (Bld) [#/Vol] 0.6 10*3/uL 1.00-4.8 [facility] Lymphocytes/100 WBC Auto (Bl d)Ordered By: Shahzad Obrien on 06-25-2022 Lymphocytes/100 WBC (Bld) 5.2 % . [facility] MCH Auto (RBC) [Entitic mass ]Ordered By: Shahzad Obrien on 06-25-2022 MCH (RBC) [Entitic mass] 29.8 pg 24.7-34.3 [facility] MCHC Auto (RBC) [Mass/Vol]Or dered By: Shahzad Obrien on 06-25-2022 MCHC (RBC) [Mass/Vol] 32.9 g/dL 32.0-35.0 [facility] MCV Auto (RBC) [Entitic vol] Ordered By: Shahzad Obrien on 06-25-2022 MCV (RBC) [Entitic vol] 90.5 fL 80-100 [facility] Monocyte distribution width [Entitic volume] in Blood by AutomatedOrdered By: Shahzad Obrien on 06-25-2022 Monocyte distribution width Auto (Bld) [Entitic vol] 22.26 % 0.00-20.00 [facility] Comment on above: For adults in ED, MD W > 20.0 may be associated with a higher risk of sepsis during the first 12 hrs of hospital admission Monocytes Auto (Bld) [#/Vol] Ordered By: Shahzad Obrien on 06-25-2022 Monocytes (Bld) [#/Vol] 0.2 10*3/uL 0.0-0.8 [facility] Monocytes/100 WBC Auto (Bld) Ordered By: Shahzad Obrien on 06-25-2022 Monocytes/100 WBC (Bld) 1.9 % . [facility] Neutrophils Auto (Bld) [#/Vo l]Ordered By: Shahzad Obrien on 06-25-2022 Neutrophils (Bld) [#/Vol] 11.5 10*3/uL 1.8-7.7 [facility] Neutrophils/100 WBC Auto (Bl d)Ordered By: Shahzad Obrien on 06-25-2022 Neutrophils/100 WBC (Bld) 92.3 % . [facility] No Panel InformationOrdered By: Shahzad Obrien on 06-25-2022 Estimated GFR () 59 mL/Min [facility] Comment on above: GFR estimated refere nce range: According to KDOQI guidelines, <60 ml/min/1.73m2 is sufficient to diagnose a patient with chronic kidney disease. Pharmacy Creatinine Clearance (Chem 50.76 [facility] Nucleated erythrocytes [Pres ence] in Blood by Automated countOrdered By: Shahzad Obrien on 06-25-2022 Nucleated RBC Auto Ql (Bld) 0.0 /100{WBC} 0-0.5 [facility] Platelet mean volume Auto (B ld) [Entitic vol]Ordered By: Shahzad Obrien on 06-25-2022 Platelet mean volume (Bld) [Entitic vol] 7.0 fL 6.3-10.7 [facility] Platelets Auto (Bld) [#/Vol] Ordered By: Shahzad Obrien on 06-25-2022 Platelets (Bld) [#/Vol] 276 10*3/uL 150-450 [facility] Protein [Mass/volume] in Ser um or PlasmaOrdered By: Shahzad Obrien on 06-25-2022 Protein [Mass/Vol] 7.4 g/dL 6.1-7.9 [facility] RBC Auto (Bld) [#/Vol]Ordere d By: Shahzad Obrien on 06-25-2022 RBC (Bld) [#/Vol] 4.63 10*6/uL 3.60-5.00 [facility] Serum or plasma alanine mejía otransferase measurement without P-5'-P (enzymatic activiOrdered By: Shahzad Obrien on 06-25-2022 ALT No additional P-5'-P [Catalytic activity/Vol] 36 U/L 10-60 [facility] Serum or plasma albumin/glob ulin mass ratioOrdered By: Shahzad Obrien on 06-25-2022 Albumin/Globulin [Mass ratio] 1.4 {ratio} [facility] Serum or plasma alkaline annabelle sphatase measurement (enzymatic activity/volume)Ordered By: Shahzad Obrien on 06-25-2022 ALP [Catalytic activity/Vol] 110 U/L 32-92 [facility] Serum or plasma anion gap de terminationOrdered By: Shahzad Obrien on 06-25-2022 Anion gap [Moles/Vol] 17.7 mmol/L 6.0-15.[address] [facility] Serum or plasma aspartate am inotransferase measurement (enzymatic activity/volume)Ordered By: Shahzad Obrien on 06-25-2022 AST [Catalytic activity/Vol] 26 U/L 10-42 [facility] Serum or plasma calcium laureen urement (mass/volume)Ordered By: Shahzad Obrien on 06-25-2022 Calcium [Mass/Vol] 9.6 mg/dL 8.2-10.2 [facility] Serum or plasma chloride silverio surement (moles/volume)Ordered By: Sahhzad Obrien on 06-25-2022 Chloride [Moles/Vol] 101 mmol/L 95-114 [facility] Serum or plasma glucose laureen urement (mass/volume)Ordered By: Shahzad Obrien on 06-25-2022 Glucose [Mass/Vol] 127 mg/dL 70-100 [facility] Comment on above: ADA recommended refe rence rangeRandom Glucose Reference Range is dependent on time and content of last meal. Glucose of more than 200 mg/dL in a nonstressed, ambulatory subject supports the diagnosis of Diabetes Mellitus. Serum or plasma potassium me asurement (moles/volume)Ordered By: Shahzad Obrien on 06-25-2022 Potassium [Moles/Vol] 4.2 mmol/L 3.5-5.1 [facility] Serum or plasma sodium measu rement (moles/volume)Ordered By: Shahzad Obrien on 06-25-2022 Sodium [Moles/Vol] 137 mmol/L 136-146 [facility] Serum or plasma total biliru bin measurement (mass/volume)Ordered By: Shahzad Obrien on 06-25-2022 Bilirubin [Mass/Vol] 0.8 mg/dL 0.3-1.2 [facility] Serum or plasma total carbon dioxide measurement (moles/volume)Ordered By: Shahzad Obrien on 06-25-2022 CO2 [Moles/Vol] 22.5 mmol/L 22.0-30.0 [facility] Serum or plasma urea nitroge n measurement (mass/volume)Ordered By: Shahzad Obrien on 06-25-2022 Urea nitrogen [Mass/Vol] 14 mg/dL 9-23 [facility] WBC Auto (Bld) [#/Vol]Ordere d By: Shahzad Obrien on 06-25-2022 WBC (Bld) [#/Vol] 12.4 10*3/uL 3.8-11.6 [facility] CNOVon 06-22-2022 CNOV Office Visit (KIDMMN ) REGLA PRAJAPATI ([id number]) 1970 F Date Time Provider Department 06/22/22 3:00 PM RACQUET MAKER MIRTA During your visit today, we recorded the following information about you: Pulse Blood pressure Weight Height 73/minute 110/77 65 kg 1.57 m Carmen Obrien MA 06/22/2022 3:32 PM Signed AMBULATORY BLOOD PRESSURE MONITOR Performed automated office BP reading and results downloaded into [employer] Average BP: 110/77 AOBP - Standardized BP [...] patient to return monitor by mail via [employer] no later than: 06/23/2022. Serial number: [id number] [employer] Tracking number [id number] Did the patient receive a blood pressure [...] office BP reading and results downloaded into [employer] Average BP: 110/77 AOBP - Standardized BP [...] patient to return monitor by mail via [employer] no later than: 06/23/2022. Serial number: [id number] [employer] Tracking number [id number] Did the patient receive a blood pressure [...] for Visit: BP 24 Hour Monitor Evaluation [2363] Primary Visit Diagnosis:Hypotension, unspecified hypotension type [I95.9] [...] neede (more content not included)... Normal [facility] CN Office Visit (MIRTA ) REGLA PRAJAPATI ([id number]) 1970 F Date Time Provider Department 06/22/22 [...] dist (more content not included)... Normal [facility] ECG COMPLETEon 06-22-2022 ECG COMPLETE Ventricular Rate : 8 7 BPM Atrial Rate : 87 BPM P-R Interval : 150 ms QRS Duration : 80 ms Q-T Interval : 346 ms QTC Calculation(Bazett) : 416 ms Calculated P [place] : 27 degrees Calculated R [place] : 34 degrees Calculated T [place] : 43 degrees NORMAL SINUS RHYTHM NORMAL ECG Confirmed by MD RAULITO, PhD, SAHIL ([id number]) on 06/28/2022 2:12:17 PM NAME : REGLA PRAJAPATI PID : [id number] : 1970 Gender : Female Race : ORD : [id number] Procedure Date : Jun 22 2022 16:26:52 Edit Date : Jun 28 2022 14:12:17 Diagnosis: NORMAL SINUS RHYTHM NORMAL ECG Confirmed by MD RAULITO, PhD, SAHIL ([id number]) on 06/28/2022 2:12:17 PM Test Reason : Location : 314 : J14 J1-4 Overread By : MD RAULITO, PhD,SAHIL Edited By : MD RAULITO, PhD,SAHIL Referred By : TING CAMILO Acquired by : SCOTT WHITE [facility] URINALYSIS, REFLEX MICROSCOP ICon 06-22-2022 Bilirubin Ql (U) Negative Normal Negative [facility] Comment on above: Order Comment: Speci men Type: URINE SPECIMENOrdering Facility: [facility] Address: [address] [place] [address] Performed By: #### L [id number] ####[facility] LABCLIA [id number] [address] [place] Clarity (Unsp spec) Clear Normal Clear [facility] Comment on above: Order Comment: Speci men Type: URINE SPECIMENOrdering Facility: [facility] Address: [address] [place] [address] Performed By: #### L [id number] ####[facility] LABCLIA [id number] [place] [address] [place] Color (U) Colorless Normal Yellow [facility] Comment on above: Order Comment: Speci men Type: URINE SPECIMENOrdering Facility: [facility] Address: [address] [place] [address] Performed By: #### L [id number] ####[facility] LABCLIA [id number] [place] [address] [place] Glucose Test strip (U) [Mass/Vol] Negative Normal Trace, Negative [facility] Comment on above: Order Comment: Speci men Type: URINE SPECIMENOrdering Facility: [facility] Address: [address] Performed By: #### L [id number] ####[facility] [facility] LABCLIA [id number] [place] [address] [place] Hemoglobin Ql (U) Negative Normal Negative, Trace [facility] Comment on above: Order Comment: Speci men Type: URINE SPECIMENOrdering Facility: [facility] Address: [address] Performed By: #### L [id number] ####[facility] LABCLIA [id number] [place] [address] [place] Ketones Ql (U) Negative Normal Negative, Trace [facility] Comment on above: Order Comment: Speci men Type: URINE SPECIMENOrdering Facility: [facility] Address: [address] Performed By: #### L [id number] ####[facility] LABCLIA [id number] [place] [address] [place] Leukocyte esterase Test strip Ql (U) Negative Normal Negative, 25 Keith/uL [facility] Comment on above: Order Comment: Speci men Type: URINE SPECIMENOrdering Facility: [facility] Address: [address] [place], [place] [address] Performed By: #### L [id number] ####[facility] LABCLIA [id number] [place] [address] [place] Nitrite Ql (U) Negative Normal Negative [facility] Comment on above: Order Comment: Speci men Type: URINE SPECIMENOrdering Facility: [facility] Address: [address] [place], [place] [address] Performed By: #### L [id number] ####[facility] LABCLIA [id number] [id number], [place] [address] [place] pH (U) 5.5 [pH] Normal 5.0-8.0 [facility] Comment on above: Order Comment: Speci men Type: URINE SPECIMENOrdering Facility: [facility] Address: [address] [place] [address] Performed By: #### L [id number] ####[facility] LABIA [id number] [place] [address] [place] Protein (U) [Mass/Vol] Negative Normal Trace , Negative [facility] Comment on above: Order Comment: Speci men Type: URINE SPECIMENOrdering Facility: [facility] Address: [address] [place] [address] Performed By: #### L [id number] ####[facility] LABIA [id number] [place] [address] [place] Specific gravity (U) [Rel density] 1.005 Normal 1.005-1.030 [facility] Comment on above: Order Comment: Speci men Type: URINE SPECIMENOrdering Facility: [facility] Address: [address] [place] [address] Performed By: #### L [id number] ####[facility] LABIA [id number] [place] [address] [place] Urobilinogen Ql (U) Negative Normal Negative [facility] Comment on above: Order Comment: Speci men Type: URINE SPECIMENOrdering Facility: [facility] Address: [address] [place] [address] Performed By: #### L [id number] ####[facility] LABIA [id number] [place] [address] [place] Bilirubin Ql (U) Negative Negative [facility] Clarity (Unsp spec) Clear Clear [facility] Color (U) Colorless Yellow [facility] Glucose Test strip (U) [Mass/Vol] Negative Trace, Negative [facility] Hemoglobin Ql (U) Negative Negative, Trace [facility] Ketones Ql (U) Negative Negative, Trace [facility] Leukocyte esterase Test strip Ql (U) Negative Negative, 25 Keith/uL [facility] Nitrite Ql (U) Negative Negative [facility] pH (U) 5.5 [pH] 5.0 - 8.0 [facility] Protein (U) [Mass/Vol] Negative Trace , Negative [facility] Specific gravity (U) [Rel density] 1.005 1.005 - 1.030 [facility] Urobilinogen Ql (U) Negative Negative [facility] CATECHOLAMINES FRACTIONATED, URINE FREEon 06-01-2022 CATECHOLAMINES INTERPRETATION See Note Normal [facility] Comment on above: Order Comment: Speci men Type: TIMED URINE SPECIMENOrdering Facility: [facility] Address: [address] [place] [id number] Result Comment: TEST INFORMATION: Catecholamines Fractionated, Urine [...] reference intervals for this test in the [facility] ([facility]). This test was developed and its performance characteristics determined by [facility]. It has not been cleared or approved by the US Food and Drug Administration. This test was performed in a CLIA certified laboratory and is intended for clinical purposes. Performed By: #### U RCAT2 ####ZeenshareIA [id number] [place] [address] CREATININE UR, PER 24H 931 mg/d Normal 700-1600 [facility] Comment on above: Order Comment: Speci men Type: TIMED URINE SPECIMENOrdering Facility: [facility] Address: [address] [place] [address] Result Comment: Perf ormed by [facility], [address] [place], [place] [id number] [email or web address], Alfonso Hernadez MD, PHD, Lab. Director Performed By: #### U RCAT2 ####VAAdNectarIA [id number] [place] [address] CREATININE UR, PER VOLUME 49 mg/dL Normal [facility] Comment on above: Order Comment: Speci men Type: TIMED URINE SPECIMENOrdering Facility: [facility] Address: [address] [place] [address] Performed By: #### U RCAT2 ####[facility]IESCLIA [id number] [place] [address] DOPAMINE, UR 24HR 118 ug/d Normal 71-485 [facility] Comment on above: Order Comment: Speci men Type: TIMED URINE SPECIMENOrdering Facility: [facility] Address: [address] [place] [address] Result Comment: REFE RENCE INTERVAL: Dopamine, Urine - ug/d Access complete set of age- and/or gender-specific reference intervals for this test in the [facility] ([facility]). Performed By: #### U RCAT2 ####[facility]ORATORIESCLIA [id number] [place] [address] DOPAMINE, UR PER VOL 62 ug/L Normal [facility] Comment on above: Order Comment: Speci men Type: TIMED URINE SPECIMENOrdering Facility: [facility] Address: [address] [place] [address] Performed By: #### U RCAT2 ####[facility]ORATORIESCLIA [id number] [place] [address] DOPAMINE, UR RATIO TO CLAY STAIN MIXER 127 ug/g CLAY STAIN MIXER Normal 0-250 [facility] Comment on above: Order Comment: Speci men Type: TIMED URINE SPECIMENOrdering Facility: [facility] Address: [address] [address] Performed By: #### U RCAT2 ####[facility]ORATORIESCLIA [id number] [place] [address] EPINEPHRINE, UR 24HR 4 ug/d Normal 1-14 [facility] Comment on above: Order Comment: Speci men Type: TIMED URINE SPECIMENOrdering Facility: [facility] Address: [address] [place] [address] Result Comment: REFE RENCE INTERVAL: Epinephrine, Urine - ug/d Access complete set of age- and/or gender-specific reference intervals for this test in the [facility] ([facility]). Performed By: #### U RCAT2 ####[facility] LABORATORIESCLIA [id number] [place] [address] EPINEPHRINE, UR PER VOL 2 ug/L Normal C [facility] Comment on above: Order Comment: Speci men Type: TIMED URINE SPECIMENOrdering Facility: [facility] Address: [address] [place] [address] Performed By: #### U RCAT2 ####[facility]ORATORIESCLIA [id number] [place] [address] EPINEPHRINE, UR RATIO TO CLAY STAIN MIXER 4 ug/g CLAY STAIN MIXER Normal 0-20 [facility] Comment on above: Order Comment: Speci men Type: TIMED URINE SPECIMENOrdering Facility: [facility] Address: [address] [place] [address] Performed By: #### U RCAT2 ####[facility]ORATORIESCLIA [id number] [place] [address] HOURS COLLECTED 24 hr Normal [facility] Comment on above: Order Comment: Speci men Type: TIMED URINE SPECIMENOrdering Facility: [facility] Address: [address] [place] [address] Result Comment: Per 24h calculations are provided to aid interpretation for collections with a duration of 24 hours and an average daily urine volume. For specimens with notable deviations in collection time or volume, ratios of analytes to a corresponding urine creatinine concentration may assist in result interpretation. Performed By: #### U RCAT2 ####[facility] Vascular TherapiesCLIA [id number] [place] [address] NOREPINEPHRINE, UR 24HR 32 ug/d Normal 14-120 C [facility] Comment on above: Order Comment: Speci men Type: TIMED URINE SPECIMENOrdering Facility: [facility] Address: [address] [place] [address] Result Comment: REFE RENCE INTERVAL: Norepinephrine, Urine - ug/d Access complete set of age- and/or gender-specific reference intervals for this test in the [facility] ([facility]). Performed By: #### U RCAT2 ####[facility] LABORATORIESCLIA [id number] [place] [address] NOREPINEPHRINE, UR PER VOL 17 ug/L Normal [facility] Comment on above: Order Comment: Speci men Type: TIMED URINE SPECIMENOrdering Facility: [facility] Address: [address] [place] [address] Performed By: #### U RCAT2 ####[facility] LABORATORIESCLIA [id number] [place] [address] NOREPINEPHRINE, UR RATIO TO CLAY STAIN MIXER 35 ug/g CLAY STAIN MIXER Normal 0-45 [facility] Comment on above: Order Comment: Speci men Type: TIMED URINE SPECIMENOrdering Facility: [facility] Address: [address] [place] [address] Performed By: #### U RCAT2 ####[facility] LABORATORIESCLIA [id number] [place] [address] TOTAL VOLUME 1900 mL Normal [facility] Comment on above: Order Comment: Speci men Type: TIMED URINE SPECIMENOrdering Facility: [facility] Address: [address] [place] [address] Performed By: #### U RCAT2 ####[facility] LABORATORIESCLIA [id number] [place] [address] CREATININE 24 HR URon 2022 Creatinine (24H U) [Mass/Time] 0.910 g/24 hr Normal 0.800-1.800 [facility] Comment on above: Order Comment: Speci men Type: TIMED URINE SPECIMENOrdering Facility: [facility] Address: [address] [place] [address] Performed By: #### U CRD ####[facility] LABCLIA [id number] [facility] [id number] [place] [address] [place] [facility]APROMED[facility] LABORATORYCLIA [id number] [place] [address] [place] PERIOD (HRS) 24 hr Normal [facility] Comment on above: Order Comment: Speci men Type: TIMED URINE SPECIMENOrdering Facility: [facility] Address: [address] [place] [address] Performed By: #### U CRD ####[facility] LABCLIA [id number] [address] LABORATORYCLIA [id number] [place] [address] [facility] Performed By: #### U METAN ####[facility] LABCLIA [id number] [place] [id number] [facility] LABORATORYCLIA [id number] [place] [address] [place] VOLUME (ML) 1900 mL Normal [facility] Comment on above: Order Comment: Speci men Type: TIMED URINE SPECIMENOrdering Facility: [facility] Address: [address] [place] [address] Performed By: #### U CRD ####[facility] LABCLIA [id number] [address] LABORATORYCLIA [id number] [place] [address] [place] Performed By: #### U METAN ####[facility] LABCLIA [id number] [address] LABORATORYCLIA [id number] [place] [address] [place] METANEPHRINES 24H URon 06-01 Metanephrines (24H U) [Mass/Time] 338 ug/24 hr Normal 140-785 [facility] Comment on above: Order Comment: Speci men Type: TIMED URINE SPECIMENOrdering Facility: [facility] Address: [address] [place] [address] Result Comment: Urin e Metanephrine test performed by Liquid Chromatography Tandem Mass Spectrometry (LC-MS/MS). Results obtained with different methods or kits cannot be used interchangeably. This test was developed and its performance characteristics determined by [facility]'s [facility] [place] ([facility]). It has not been cleared or approved by the FDA. [facility] is regulated under CLIA as qualified to perform high-complexity testing. This test is used for clinical purposes. It should not be regarded as investigational or for research. Performed By: #### U METAN ####[facility] LABCLIA [id number] [address] LABORATORYCLIA [id number] [address] [place] NORMETANEPHRINES, UR 264 ug/24 hr Normal 88-444 [facility] Comment on above: Order Comment: Speci men Type: TIMED URINE SPECIMENOrdering Facility: [facility] Address: [address] [place] [address] Performed By: #### U METAN ####[facility] LABIA [id number] [address] LABORATORYIA [id number] [address] [place] Aldost SerPl-mCncon 05-18-19 23 Aldosterone [Mass/Vol] <3.0 Normal 0.0-<35.4 [facility] Comment on above: Order Comment: Speci men Type: BLOOD SPECIMENOrdering Facility: [facility] Address: [address] [place] [address] Result Comment: The reference interval for serum/plasma [...] 15 ng/dL. Performed By: #### 1 763-2 ####[facility] LABCLIA [id number] [place] [address] [place]#### RENIND ####[facility] LABCLIA [id number] [place] [id number] [place] AMERICAPROMEDICA [facility] LABORATORYCLIA [id number] [place] [address] [place] CATECHOLAMINES FRAon 023 CATECHOLAMINE INTERPRETATION PLASMA See Note Normal [facility] Comment on above: Order Comment: Speci men Type: BLOOD SPECIMENOrdering Facility: [facility] Address: [address] [place] [address] Result Comment: INTE RPRETIVE INFORMATION: Catecholamines Panel, [...] developed and its performance characteristics determined by [facility]. It has not been cleared or approved by the US Food and Drug Administration. This test was performed in a CLIA certified laboratory and is intended for clinical purposes. Performed By: [facility] [address] [place] [address] Business Quality Assurance Analyst: Alfonso Hernadez MD, PhD Performed By: #### P LCAT ####[facility] LABORATORIESCLIA [id number] [place] [address] DOPAMINE 30 pg/mL High 0-20 [facility] Comment on above: Order Comment: Speci men Type: BLOOD SPECIMENOrdering Facility: [facility] Address: [address] [place] [place] [address] Performed By: #### P LCAT ####[facility] LABORATORIESCLIA [id number] [place] [address] EPINEPHRINE (P) 22 pg/mL Normal 10-200 [facility] Comment on above: Order Comment: Speci men Type: BLOOD SPECIMENOrdering Facility: [facility] Address: [address] [place] [place] [address] Performed By: #### P LCAT ####[facility] LABORATORIESCLIA [id number] [place] [address] NOREPINEPHRINE 590 pg/mL High 80-520 [facility] Comment on above: Order Comment: Speci men Type: BLOOD SPECIMENOrdering Facility: [facility] Address: [address] [address] Performed By: #### P LCAT ####[facility] LABORATORIESCLIA [id number] [place] [address] DIRECT RENIN PLASMAon 2022 DIRECT RENIN 137.2 pg/mL High 3.6-81.6 [facility] Comment on above: Order Comment: Speci men Type: BLOOD SPECIMENOrdering Facility: [facility] Address: [address] [place] [address] Result Comment: A ra michaelle of aldosterone [...] 2.5-45.1 pg/mL Performed By: #### 1 763-2 ####[facility] LABCLIA [id number] [place] [address] [place]#### RENIND ####[facility] LABCLIA [id number] [address] STATES OF [facility] LABORATORYCLIA [id number] [address] [place] PATIENT UPRIGHT OR SUPINE Supine Normal [facility] Comment on above: Order Comment: Speci men Type: BLOOD SPECIMENOrdering Facility: [facility] Address: [address] Performed By: #### 1 763-2 ####[facility] LABCLIA [id number] [place] [address] [place]#### RENIND ####[facility] LABCLIA [id number] [address] STATES OF [facility] LABORATORYCLIA [id number] [place] [address] [place] METANEPHRINES, FREE PLASMAon 05-18-2022 METANEPHRINE, PLASMA 33 pg/mL Normal 12-67 [facility] Comment on above: Order Comment: Speci men Type: BLOOD SPECIMENOrdering Facility: [facility] Address: [address] [place] [address] Result Comment: Refe rence Ranges: Hypertensive adult > or = 18 yrs old: 12-72 pg/mL Normotensive adult > or = 18 yrs old: 12-67 pg/mL Normotensive children < 18 yrs old: 10-95 pg/mL Performed By: #### P METAN ####[facility] LABIA [id number] [address] [place] NORMETANEPHRINE, PLASMA 134 pg/mL High 18-101 [facility] Comment on above: Order Comment: Speci men Type: BLOOD SPECIMENOrdering Facility: [facility] Address: [address] [place] [address] Result Comment: Refe rence Ranges: Hypertensive adult > or = 18 yrs old: 24-145 pg/mL Normotensive adult > or = 18 yrs old: 18-101 pg/mL Normotensive children < 18 yrs old: 22-83 pg/mL Methyldopa may cause false elevation of normetanephrine levels in this assay. If patient is on methyldopa, interpret results with caution. Performed By: #### P METAN ####[facility] LABCLIA [id number] [place] [address] [place] Renal function 2000 panelon 05-18-2022 Albumin [Mass/Vol] 4.2 g/dL Normal 3.9-4.9 [facility] Comment on above: Order Comment: Speci men Type: BLOOD SPECIMENOrdering Facility: [facility] Address: [address] Performed By: #### 2 4362-6 ####[facility] LABCLIA [id number] [place] [address] [place] Anion gap [Moles/Vol] 12 mmol/L Normal 9-18 [facility] Comment on above: Order Comment: Speci men Type: BLOOD SPECIMENOrdering Facility: [facility] Address: [address] Performed By: #### 2 4362-6 ####[facility] LABCLIA [id number] [place] [address] [place] Calcium [Mass/Vol] 9.4 mg/dL Normal 8.5-10.2 [facility] Comment on above: Order Comment: Speci men Type: BLOOD SPECIMENOrdering Facility: [facility] Address: [address] Performed By: #### 2 4362-6 ####[facility] LABCLIA [id number] [place] [address] [place] Chloride [Moles/Vol] 103 mmol/L Normal 97-105 [facility] Comment on above: Order Comment: Speci men Type: BLOOD SPECIMENOrdering Facility: [facility] Address: [address] [address] Performed By: #### 2 4362-6 ####[facility] LABCLIA [id number] [place] [address] [place] CO2 [Moles/Vol] 24 mmol/L Normal 22-30 [facility] Comment on above: Order Comment: Speci men Type: BLOOD SPECIMENOrdering Facility: [facility] Address: [address] Performed By: #### 2 4362-6 ####[facility] LABIA [id number] [place] [address] [place] Creatinine [Mass/Vol] 0.98 mg/dL High 0.58-0.96 [facility] Comment on above: Order Comment: Speci men Type: BLOOD SPECIMENOrdering Facility: [facility] Address: [address] Performed By: #### 2 4362-6 ####[facility] LABIA [id number] [place] [address] [place] ESTIMATED GLOMERULAR FILTRATION RATE 71 mL/min/1.73m??? Normal >=60 [facility] Comment on above: Order Comment: Eyali men Type: BLOOD SPECIMENOrdering Facility: [facility] Address: [address] [place] [place] [address] Result Comment: Liz mated Glomerular Filtration Rate [...] actual GFR. Performed By: #### 2 4362-6 ####[facility] LABIA [id number] [place] [address] [place] Glucose [Mass/Vol] 106 mg/dL High 74-99 [facility] Comment on above: Order Comment: Speci men Type: BLOOD SPECIMENOrdering Facility: [facility] Address: [address] Result Comment: The [place] [employer] (ADA) provides guidance for cutoff [...] Standards of Medical Care in Diabetes 2016, [place] [employer]. Diabetes Care. 2016.39(Suppl 1). Performed By: #### 2 4362-6 ####[facility] LABCLIA [id number] [place] [address] [place] Phosphate [Mass/Vol] 3.6 mg/dL Normal 2.7-4.8 [facility] Comment on above: Order Comment: Speci men Type: BLOOD SPECIMENOrdering Facility: [facility] Address: [address] [place] [address] Performed By: #### 2 4362-6 ####[facility] LABIA [id number] [place] [address] [place] Potassium [Moles/Vol] 3.8 mmol/L Normal 3.7-5.1 [facility] Comment on above: Order Comment: Eyali men Type: BLOOD SPECIMENOrdering Facility: [facility] Address: [address] [place] [address] Performed By: #### 2 4362-6 ####[facility] LABIA [id number] [place] [address] [place] Sodium [Moles/Vol] 139 mmol/L Normal 136-144 [facility] Comment on above: Order Comment: Speci men Type: BLOOD SPECIMENOrdering Facility: [facility] Address: [address] [place], [place] [address] Performed By: #### 2 4362-6 ####[facility] LABIA [id number] [place] [address] [place] Urea nitrogen [Mass/Vol] 15 mg/dL Normal 7-21 [facility] Comment on above: Order Comment: Speci men Type: BLOOD SPECIMENOrdering Facility: [facility] Address: [address] [place] [address] Performed By: #### 2 4362-6 ####[facility] LABCLIA [id number] [place] [address] [place] URINALYSIS, REFLEX MICROSCOP ICon 05-18-2022 Bilirubin Ql (U) Negative Normal Negative [facility] Comment on above: Order Comment: Speci men Type: URINE SPECIMEN [facility] Address: [address] Performed By: #### L [id number] #### [facility] CLIA [id number] [place] [address] [place] Clarity (Unsp spec) Clear Normal Clear [facility] Comment on above: Order Comment: Speci men Type: URINE SPECIMEN [facility] Address: [address] [place], [place] [address] Performed By: #### L [id number] #### [facility] CLIA [id number] [address] [place] [address] Color (U) Light Yellow Normal Yellow [facility] Comment on above: Order Comment: Speci men Type: URINE SPECIMEN [facility] Address: [address] [place], [place] [address] Performed By: #### L [id number] #### [facility] CLIA [id number] [address] [place] [address] [place] Glucose Test strip (U) [Mass/Vol] Negative Normal Trace, Negative [facility] Comment on above: Order Comment: Speci men Type: URINE SPECIMEN Ordering Facility: [facility] Address: [address] Performed By: #### L [id number] #### [facility] CLIA [id number] [address] [place] [address] [place] Hemoglobin Ql (U) Negative Normal Negative, Trace [facility] Comment on above: Order Comment: Speci men Type: URINE SPECIMEN Ordering Facility: [facility] Address: [address] Performed By: #### L [id number] #### [facility] CLIA [id number] [address] [place] [address] [place] Ketones Ql (U) Negative Normal Trace, Negative [facility] Comment on above: Order Comment: Speci men Type: URINE SPECIMEN Ordering Facility: [facility] Address: [address] [address] Performed By: #### L [id number] #### [facility] CLIA [id number] [address] [place] [address] [place] Leukocyte esterase Test strip Ql (U) Negative Normal Negative, 25 Keith/mL [facility] Comment on above: Order Comment: Speci men Type: URINE SPECIMEN Ordering Facility: [facility] Address: [address] Performed By: #### L [id number] #### [facility] CLIA [id number] [address] [place] [address] [place] Nitrite Ql (U) Negative Normal Negative [facility] Comment on above: Order Comment: Speci men Type: URINE SPECIMEN Ordering Facility: [facility] Address: [address] [place], [place] [address] Performed By: #### L [id number] #### [facility] CLIA [id number] [address] [place] [address] [place] pH (U) 6.0 [pH] Normal 5.0-8.0 [facility] Comment on above: Order Comment: Speci men Type: URINE SPECIMEN Ordering Facility: [facility] Address: [address] Performed By: #### L [id number] #### [facility] CLIA [id number] [address] [place] [address] [place] Protein (U) [Mass/Vol] Negative Normal Trace , Negative [facility] Comment on above: Order Comment: Speci men Type: URINE SPECIMEN Ordering Facility: [facility] Address: [address] [place] [address] Performed By: #### L [id number] #### [facility] CLIA [id number] [facility] [place] [address] [place] Specific gravity (U) [Rel density] 1.011 Normal 1.005-1.030 [facility] Comment on above: Order Comment: Speci men Type: URINE SPECIMEN Ordering Facility: [facility] Address: [address] [place] [address] Performed By: #### L [id number] #### [facility] CLIA [id number] [facility] [address] [place] Urobilinogen Ql (U) Negative Normal Negative [facility] Comment on above: Order Comment: Speci men Type: URINE SPECIMEN Ordering Facility: [facility] Address: [address] [place] [address] Performed By: #### L [id number] #### [facility] CLIA [id number] [facility] [place] [address] [place] Basophils Auto (Bld) [#/Vol] Ordered By: Terrell Mc on 05-11-2022 Basophils (Bld) [#/Vol] 0.0 10*3/uL 0.0-0.2 [facility] Basophils/100 WBC Auto (Bld) Ordered By: Terrell Mc on 05-11-2022 Basophils/100 WBC (Bld) 0.5 % . [facility] Body fluid albumin measureme nt (mass/volume)Ordered By: Terrell Mc on 05-11-2022 Albumin (Body fld) [Mass/Vol] 3.8 g/dL 3.2-5.5 [facility] Creatinine and Glomerular fi ltration rate.predicted panel (S/P/Bld)Ordered By: Terrell Mc on 05-11-2022 Creatinine [Mass/Vol] 1.11 mg/dL 0.44-1.03 [facility] Eosinophils Auto (Bld) [#/Vo l]Ordered By: Terrell Mc on 05-11-2022 Eosinophils (Bld) [#/Vol] 0.1 10*3/uL 0.0-0.45 [facility] Eosinophils/100 WBC Auto (Bl d)Ordered By: Terrell Mc on 05-11-2022 Eosinophils/100 WBC (Bld) 0.7 % . [facility] Erythrocyte distribution wid th Auto (RBC) [Ratio]Ordered By: Terrell Mc on 05-11-2022 Erythrocyte distribution width (RBC) [Ratio] 13.5 % 11.9-15.3 [facility] Estimated glomerular filtrat ion rate (GFR) non- AmericanOrdered By: Terrell Mc on 05-11-2022 GFR/1.73 sq M.predicted among non-blacks MDRD (S/P/Bld) [Vol rate/Area] 52 mL/Min [facility] Globulin Calc (S) [Mass/Vol] Ordered By: Terrell Mc on 05-11-2022 Globulin (S) [Mass/Vol] 2.5 g/dL [facility] Hematocrit Auto (Bld) [Volum e fraction]Ordered By: Terrell Mc on 05-11-2022 Hematocrit (Bld) [Volume fraction] 37.4 % 34.0-46.4 [facility] Hemoglobin [Mass/volume] in BloodOrdered By: Terrell Mc on 05-11-2022 Hemoglobin (Bld) [Mass/Vol] 12.3 g/dL 11.8-15.4 [facility] Leukocytes [#/volume] correc flo for nucleated erythrocytes in Blood by Automated counOrdered By: Terrell Mc on 05-11-2022 WBC corrected for nucl RBC Auto (Bld) [#/Vol] 7.7 10*3/uL 3.8-11.6 [facility] Lymphocytes Auto (Bld) [#/Vo l]Ordered By: Terrell Mc on 05-11-2022 Lymphocytes (Bld) [#/Vol] 3.0 10*3/uL 1.00-4.8 [facility] Lymphocytes/100 WBC Auto (Bl d)Ordered By: Terrell Mc on 05-11-2022 Lymphocytes/100 WBC (Bld) 39.2 % . [facility] MCH Auto (RBC) [Entitic mass ]Ordered By: Terrell Mc on 05-11-2022 MCH (RBC) [Entitic mass] 29.6 pg 24.7-34.3 [facility] MCHC Auto (RBC) [Mass/Vol]Or dered By: Terrell Mc on 05-11-2022 MCHC (RBC) [Mass/Vol] 32.8 g/dL 32.0-35.0 [facility] MCV Auto (RBC) [Entitic vol] Ordered By: Terrell Mc on 05-11-2022 MCV (RBC) [Entitic vol] 90.3 fL 80-100 [facility] Monocyte distribution width [Entitic volume] in Blood by AutomatedOrdered By: Terrell Mc on 05-11-2022 Monocyte distribution width Auto (Bld) [Entitic vol] 17.43 % 0.00-20.00 [facility] Monocytes Auto (Bld) [#/Vol] Ordered By: Terrell Mc on 05-11-2022 Monocytes (Bld) [#/Vol] 0.8 10*3/uL 0.0-0.8 [facility] Monocytes/100 WBC Auto (Bld) Ordered By: Terrell Mc on 05-11-2022 Monocytes/100 WBC (Bld) 10.4 % . [facility] Neutrophils Auto (Bld) [#/Vo l]Ordered By: Terrell Mc on 05-11-2022 Neutrophils (Bld) [#/Vol] 3.8 10*3/uL 1.8-7.7 [facility] Neutrophils/100 WBC Auto (Bl d)Ordered By: Terrell Mc on 05-11-2022 Neutrophils/100 WBC (Bld) 49.2 % . [facility] No Panel InformationOrdered By: Terrell Mc on 05-11-2022 Estimated GFR () > 60 mL/Min [facility] Comment on above: GFR estimated refere nce range: According to KDOQI guidelines, <60 ml/min/1.73m2 is sufficient to diagnose a patient with chronic kidney disease. Pharmacy Creatinine Clearance (Chem 54.45 [facility] Nucleated erythrocytes [Pres ence] in Blood by Automated countOrdered By: Terrell Mc on 05-11-2022 Nucleated RBC Auto Ql (Bld) 0.1 /100{WBC} 0-0.5 [facility] Platelet mean volume Auto (B ld) [Entitic vol]Ordered By: Terrell Mc on 05-11-2022 Platelet mean volume (Bld) [Entitic vol] 7.0 fL 6.3-10.7 [facility] Platelets Auto (Bld) [#/Vol] Ordered By: Terrell Mc on 05-11-2022 Platelets (Bld) [#/Vol] 332 10*3/uL 150-450 [facility] Protein [Mass/volume] in Ser um or PlasmaOrdered By: Terrell Mc on 05-11-2022 Protein [Mass/Vol] 6.3 g/dL 6.1-7.9 [facility] RBC Auto (Bld) [#/Vol]Ordere d By: Terrell Mc on 05-11-2022 RBC (Bld) [#/Vol] 4.14 10*6/uL 3.60-5.00 [facility] Serum or plasma alanine mejía otransferase measurement without P-5'-P (enzymatic activiOrdered By: Terrell Mc on 05-11-2022 ALT No additional P-5'-P [Catalytic activity/Vol] 30 U/L 10-60 [facility] Serum or plasma albumin/glob ulin mass ratioOrdered By: Terrell Mc on 05-11-2022 Albumin/Globulin [Mass ratio] 1.5 {ratio} [facility] Serum or plasma alkaline annabelle sphatase measurement (enzymatic activity/volume)Ordered By: Terrell Mc on 05-11-2022 ALP [Catalytic activity/Vol] 90 U/L 32-92 [facility] Serum or plasma anion gap de terminationOrdered By: Terrell Mc on 05-11-2022 Anion gap [Moles/Vol] 12.6 mmol/L 6.0-15.[address] [facility] Serum or plasma aspartate am inotransferase measurement (enzymatic activity/volume)Ordered By: Terrell Mc on 05-11-2022 AST [Catalytic activity/Vol] 27 U/L 10-42 [facility] Serum or plasma calcium laureen urement (mass/volume)Ordered By: Terrell Mc on 05-11-2022 Calcium [Mass/Vol] 9.3 mg/dL 8.2-10.2 [facility] Serum or plasma chloride silverio surement (moles/volume)Ordered By: Terrell Mc on 05-11-2022 Chloride [Moles/Vol] 105 mmol/L 95-114 [facility] Serum or plasma glucose laureen urement (mass/volume)Ordered By: Terrell Mc on 05-11-2022 Glucose [Mass/Vol] 74 mg/dL 70-100 [facility] Comment on above: ADA recommended refe rence rangeRandom Glucose Reference Range is dependent on time and content of last meal. Glucose of more than 200 mg/dL in a nonstressed, ambulatory subject supports the diagnosis of Diabetes Mellitus. Serum or plasma potassium me asurement (moles/volume)Ordered By: Terrell Mc on 05-11-2022 Potassium [Moles/Vol] 3.5 mmol/L 3.5-5.1 [facility] Serum or plasma sodium measu rement (moles/volume)Ordered By: Terrell Mc on 05-11-2022 Sodium [Moles/Vol] 140 mmol/L 136-146 [facility] Serum or plasma total biliru bin measurement (mass/volume)Ordered By: Terrell Mc on 05-11-2022 Bilirubin [Mass/Vol] 0.4 mg/dL 0.3-1.2 [facility] Serum or plasma total carbon dioxide measurement (moles/volume)Ordered By: Terrell Mc on 05-11-2022 CO2 [Moles/Vol] 25.9 mmol/L 22.0-30.0 [facility] Serum or plasma urea nitroge n measurement (mass/volume)Ordered By: Terrell Mc on 05-11-2022 Urea nitrogen [Mass/Vol] 14 mg/dL 9-23 [facility] Troponin I.cardiac [Mass/vol ume] in Serum or Plasma by High sensitivity methodOrdered By: Terrell Mc on 05-11-2022 Troponin I.cardiac High sensitivity method [Mass/Vol] 4 pg/mL 0-15 [facility] WBC Auto (Bld) [#/Vol]Ordere d By: Terrell Mc on 05-11-2022 WBC (Bld) [#/Vol] 7.7 10*3/uL 3.8-11.6 [facility] CNOVon 05-04-2022 CNOV Office Visit (VASSAV ) REGLA PRAJAPATI ([id number]) 1970 F Date Time Provider Department 05/04/22 12:15 PM FERMIN BEGUM During your visit today, we recorded the following information about you: Pulse Blood pressure 84/minute 140/84 Fermin Begum MD 05/04/2022 12:21 PM Signed [facility]ASCULAR [facility]GERY OUTPATIENT VISIT DATE May 04, 2022 OUTPATIENT VISIT TYPE ESTABLISHED SERVICE DATE: 05/04/2022 SERVICE TIME: 11:54 AM PRIMARY CARE PHYSICIAN: Renetta Ridley, VFX ARTIST, VFX ARTIST HISTORY OF PRESENT ILLNESS: Ms. Prajapati is [...] valvular abnormalities 03/04/2019 patient had procedure at [facility] in [place] for critical right common iliac artery stenosis [...] thenar (more content not included)... Normal [facility] PVR ANK/HERNANDEZ/TOE [facility] on 05-03-2022 PVR ANK/HERNANDEZ/TOE [facility] Non-Invasive Vascular Laboratory [facility] Lower Extremity Arterial Physiology Study Bilateral/Complete Date [...] Normal at rest. Technologist: Prieto Malik RVT, [facility] Ordering physician: FERMIN BEGUM Interpreting physician: Joel Bojorquez MD Final CC [facility] : [id number] See Link below for Image Normal [facility] US ABD AORTA COMPLETE VAS LA Bon 05-03-2022 US ABD AORTA COMPLETE [facility] Non-Invasive Vascular Laboratory [facility] Abdominal Aorta Bilateral/Complete Date of service/time: 05/03/2022 [...] Interpreting physician: Joel Bojorquez MD Final CC [facility] : [id number] sSISUID See Link below for Image Normal [facility] US CAROTID ARTERIES [facility] 05-03-2022 US CAROTID ARTERIES [facility] Non-Invasive Vascular Laboratory [facility] Carotid Duplex Bilateral/Complete Date of service/time: 05/03/2022 [...] Interpreting physician: Joel Bojorquez MD Final CC [facility] : [id number] sSISUID See Link below for Image Normal [facility] RENAL ARTERY [facility] n 05-03-2022 US RENAL ARTERY [facility] Non-Invasive Vascular Laboratory [facility] Renal or Mesenteric Duplex Bilateral/Complete Date of [...] hemodynamically significant stenosis. 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 Normal [facility] CT ABD/PELV W CONon 03-23-20 CT ABD/PELV [...] FIOR TORRES Date: 2022-03-23 06:43 Normal [facility] AMYLASEon 03-22-2022 Amylase [Catalytic activity/Vol] 59 U/L Normal 25-115 [facility] Comment on above: Performed By: #### L IPA, CMP, AARON, TSH, LIPID, FT3 #### [facility] [address] [address] [address] Judah Peñaloza CBC AUTO DIFFon 03-22-2022 BASO # 0.0 103/ul Normal 0.0-0.1 [facility] Comment on above: Performed By: #### C MP, AARON, LIPA #### [facility] [address] [place] [address] Dr. Judah Peñaloza Basophils/100 WBC (Bld) 0.4 % Normal 0.2-2.0 [facility] Comment on above: Performed By: #### C MP AARON, LIPA #### [facility] [address] [place] [address] Dr. Judah Peñaloza EO # 0.1 103/ul Normal 0.0-0.7 [facility] Comment on above: Performed By: #### C MP AARON, LIPA #### [facility] [address] [place] [address] Dr. Judah Peñaloza Eosinophils/100 WBC (Bld) 0.7 % Critically low 0.9-7.0 [facility] Comment on above: Performed By: #### C AARON ZHU, LIPA #### [facility] [address] [place] [address] Dr. Judah Peñaloza Erythrocyte distribution width (RBC) [Ratio] 13.1 % Normal 11.0-15.0 [facility] Comment on above: Performed By: #### C AARON ZHU LIPA #### [facility] [address] [place] [address] Dr. Judah Peñaloza Hematocrit (Bld) [Volume fraction] 38.1 % Normal 36.0-48.0 [facility] Comment on above: Performed By: #### C AAORN ZHU LIPA #### [facility] [address] [place] [address] Dr. Judah Peñaloza Hemoglobin (Bld) [Mass/Vol] 12.5 g/dL Normal 12.0-16.0 [facility] Comment on above: Performed By: #### C AARON ZHU, LIPA #### [facility] [address] [place] [address] Dr. Judah Peñaloza IG # 0.01 10e3/ul Normal 0.00-0.03 [facility] Comment on above: Performed By: #### C AARON ZHU, LIPA #### [facility] [address] [place] [address] Dr. Judah Peñaloza IG % 0.1 % Normal 0.0-0.5 [facility] Comment on above: Performed By: #### C AARON ZHU LIPA #### [facility] [address] [place] [address] Dr. Judah Peñaloza LYMPH # 2.6 103/ul Normal 1.2-3.8 [facility] Comment on above: Performed By: #### C AARON ZHU LIPA #### [facility] [address] [place] [address] Dr. Judah Peñaloza Lymphocytes/100 WBC (Bld) 38.6 % Normal 20.5-60.0 [facility] Comment on above: Performed By: #### C AARON ZHU LIPA #### [facility] [address] [place] [address] Dr. Judah Peñaloza MANUAL DIFF REQ NO Normal [facility] Comment on above: Performed By: #### C AARON ZHU LIPA #### [facility] [address] [place] [address] Dr. Judah Peñaloza MCH (RBC) [Entitic mass] 29.5 pg Normal 26.7-34.0 [facility] Comment on above: Performed By: #### C AARON ZHU LIPA #### [facility] [address] [place] [address] Dr. Judah Peñaloza MCHC (RBC) [Mass/Vol] 32.8 g/dL Normal 29.9-35.2 [facility] Comment on above: Performed By: #### C AARON ZHU LIPA #### [facility] [address] [place] [address] Dr. Judah Peñaloza MCV (RBC) [Entitic vol] 89.9 fL Normal 81.0-99.0 [facility] Comment on above: Performed By: #### C AARON ZHU LIPA #### [facility] [address] [place] [address] Dr. Judah Peñaloza MONO # 0.5 103/ul Normal 0.3-0.8 [facility] Comment on above: Performed By: #### C MP, AARON, LIPA #### [facility] [address] [address] [address] Judah Peñaloza Monocytes/100 WBC (Bld) 6.8 % Normal 1.7-12.0 [facility] Comment on above: Performed By: #### C MP, AARON, LIPA #### [facility] [address] [place] [address] Dr. Judah Peñaloza NEUT # 3.6 103/ul Normal 1.4-6.5 [facility] Comment on above: Performed By: #### C MP, AARON, LIPA #### [facility] [address] [place] [address] Dr. Judah Peñaloza Neutrophils/100 WBC (Bld) 53.4 % Normal 43.0-75.0 [facility] Comment on above: Performed By: #### C AUDRA AARNO, LIPA #### [facility] [address] [place] [address] Dr. Judah Peñaloza Platelet mean volume (Bld) [Entitic vol] 8.8 fL Critically low 9.5-13.5 [facility] Comment on above: Performed By: #### C AUDRA AARON, LIPA #### [facility] [address] [place] [address] Dr. Judah Peñaloza PLT 281 103/ul Normal 150-450 [facility] Comment on above: Performed By: #### C AUDRA AARON, LIPA #### [facility] [address] [place] [address] Dr. Judah Peñaloza RBC 4.24 106/ul Normal 4.20-5.40 [facility] Comment on above: Performed By: #### C MP AARON, LIPA #### [facility] [address] [place] [address] Dr. Judah Peñaloza WBC 6.8 103/ul Normal 4.0-11.0 [facility] Comment on above: Performed By: #### C MP, AARON, LIPA #### [facility] [address] [place] [address] Dr. Judah Peñaloza FREE T3on 03-22-2022 FREE T3 2.66 pg/mlL Normal 2.18-3.98 [facility] Comment on above: Performed By: #### C MP, AARON, LIPA #### [facility] [address] [place] [address] Dr. Judah Peñaloza FREE T4on 03-22-2022 Free T4 [Mass/Vol] 1.02 ng/dL Normal 0.76-1.46 [facility] Comment on above: Performed By: #### C BC #### [facility] [address] [place] [address] Dr. Judah Peñaloza LIPASEon 03-22-2022 Lipase [Catalytic activity/Vol] 102.0 U/L Normal 73.0-393.0 [facility] Comment on above: Performed By: #### L IPA, CMP, AARON, TSH, LIPID, FT3 #### [facility] [address] [place] [address] Dr. Judah Peñaloza LIPID PROFILEon 03-22-2022 CHOL-HDL RATIO NORM SEE BELOW Normal [facility] Comment on above: Result Comment: 3.3 - 4.4 LOW RISK 4.4 - 7.1 AVERAGE RISK 7.1 - 11.0 MODERATE RISK >11.0 HIGH RISK Performed By: #### C MP, AARON, LIPA #### [facility] [address] [place] [address] Dr. Judah Peñaloza Cholesterol [Mass/Vol] 146 mg/dL Normal <=200 [facility] Comment on above: Performed By: #### C MP, AARON, LIPA #### [facility] [address] [place] [address] Dr. Judah Peñaloza Cholesterol in HDL [Mass/Vol] 49 mg/dL Normal 40-60 [facility] Comment on above: Performed By: #### C MP, AARON, LIPA #### [facility] [address] [place] [address] Dr. Judah Peñaloza Cholesterol in LDL [Mass/Vol] 70.4 mg/dL Normal [facility] Comment on above: Performed By: #### C MP, AARON, LIPA #### [facility] [address] [place] [address] Dr. Judah Peñaloza Cholesterol.total/Meg sterol in HDL [Mass ratio] 3.0 {ratio} Normal [facility] Comment on above: Performed By: #### C AARON ZHU, LIPA #### [facility] [address] [place] [address] Dr. Judah Peñaloza HDL NORMAL > or = 60 mg/dl - LO W CARDIOVASCULAR RISK <40 mg/dl - HIGH CARDIOVASCULAR RISK Normal [facility] Comment on above: Performed By: #### C AUDRA AARON, LIPA #### [facility] [address] [place] [address] Dr. Judah Peñaloza LDL CALC NORMAL SEE BELOW Normal [facility] Comment on above: Result Comment: <100 mg/dl OPTIMAL 100 - 129 mg/dl NEAR OR ABOVE OPTIMAL 130 - 159 mg/dl BORDERLINE HIGH 160 - 189 mg/dl HIGH >190 mg/dl VERY HIGH Performed By: #### C AUDRA AARON, LIPA #### [facility] [address] [place] [address] Dr. Judah Peñaloza Triglyceride [Mass/Vol] 133 mg/dL Normal <=150 [facility] Comment on above: Performed By: #### C AUDRA AARON, LIPA #### [facility] [address] [place] [address] Dr. Judah Peñaloza VLDL CALC 26.6 mg/dL Normal [facility] Comment on above: Performed By: #### C MP, AARON, LIPA #### [facility] [address] [place] [address] Dr. Judah Peñaloza PROF 14(COMP METB)on 022 Albumin [Mass/Vol] 3.7 g/dL Normal 3.4-5.0 [facility] Comment on above: Performed By: #### L IPA, CMP, AARON, TSH, LIPID, FT3 #### [facility] [address] [place] [address] Dr. Judah Peñaloza Albumin/Globulin [Mass ratio] 1.1 {ratio} Normal [facility] Comment on above: Performed By: #### L IPA, CMP, AARON, TSH, LIPID, FT3 #### [facility] [address] [address] [address] Judah Peñaloza ALP [Catalytic activity/Vol] 122 U/L Critically high 46-116 [facility] Comment on above: Performed By: #### L IPA, CMP, AARON, TSH, LIPID, FT3 #### [facility] [address] [address] [address] Judah Peñaloza ALT [Catalytic activity/Vol] 34 U/L Normal 14-59 [facility] Comment on above: Performed By: #### L IPA, CMP, AARON, TSH, LIPID, FT3 #### [facility] [address] [address] [address] Judah Peñaloza Anion gap [Moles/Vol] 8.7 mmol/L Normal [facility] Comment on above: Performed By: #### L IPA, CMP, AARON, TSH, LIPID, FT3 #### [facility] [address] [place] [address] Dr. Judah Peñaloza AST [Catalytic activity/Vol] 20 U/L Normal 15-37 [facility] Comment on above: Performed By: #### L IPA, CMP, AARON, TSH, LIPID, FT3 #### [facility] [address] [address] [address] Judah Peñaloza Bilirubin [Mass/Vol] 0.4 mg/dL Normal 0.2-1.0 [facility] Comment on above: Performed By: #### L IPA, CMP, AARON, TSH, LIPID, FT3 #### [facility] [address] [place] [address] Dr. Judah Peñaloza Calcium [Mass/Vol] 9.2 mg/dL Normal 8.5-10.1 [facility] Comment on above: Performed By: #### L IPA, CMP, AARON, TSH, LIPID, FT3 #### [facility] [address] [place] [address] Dr. Judah Peñaloza Chloride [Moles/Vol] 103 mmol/L Normal 98-107 [facility] Comment on above: Performed By: #### L IPA, CMP, AARON, TSH, LIPID, FT3 #### [facility] [address] [address] [address] Judah Peñaloza CO2 [Moles/Vol] 32.1 mmol/L Critically high 21.0-32.0 [facility] Comment on above: Performed By: #### L IPA, CMP, AARON, TSH, LIPID, FT3 #### [facility] [address] [place] [address] Dr. Judah Peñaloza Creatinine [Mass/Vol] 0.94 mg/dL Normal 0.55-1.02 [facility] Comment on above: Performed By: #### L IPA, CMP, AARON, TSH, LIPID, FT3 #### [facility] [address] [place] [address] Dr. Judah Peñaloza EGFR-AF [place]I >60 Normal >=60 [facility] Comment on above: Performed By: #### L IPA, CMP, AARON, TSH, LIPID, FT3 #### [facility] [address] [place] [address] Dr. Judah Peñaloza EGFR-NON AF [place] >60 Normal >=60 [facility] Comment on above: Performed By: #### L IPA, CMP, AARON, TSH, LIPID, FT3 #### [facility] [address] [place] [address] Dr. Judah Peñaloza Globulin (S) [Mass/Vol] 3.5 g/dL Normal [facility] Comment on above: Performed By: #### L IPA, CMP, AARON, TSH, LIPID, FT3 #### [facility] [address] [place] [address] Dr. Judah Peñaloza Glucose [Mass/Vol] 83 mg/dL Normal 74-106 [facility] Comment on above: Performed By: #### L IPA, CMP, AARON, TSH, LIPID, FT3 #### [facility] [address] [place] [address] Dr. Judah Peñaloza Potassium [Moles/Vol] 3.8 mmol/L Normal 3.5-5.1 [facility] Comment on above: Performed By: #### L IPA, CMP, AARON, TSH, LIPID, FT3 #### [facility] [address] [place] [address] Dr. Judah Peñaloza Protein [Mass/Vol] 7.2 g/dL Normal 6.4-8.2 [facility] Comment on above: Performed By: #### L IPA, CMP, AARON, TSH, LIPID, FT3 #### [facility] [address] [address] [address] Judah Peñaloza Sodium [Moles/Vol] 140 mmol/L Normal 136-145 [facility] Comment on above: Performed By: #### L IPA, CMP, AARON, TSH, LIPID, FT3 #### [facility] [address] [address] [address] Judah Peñaloza Urea nitrogen [Mass/Vol] 11.0 mg/dL Normal 7.0-18.0 [facility] Comment on above: Performed By: #### L IPA, CMP, AARON, TSH, LIPID, FT3 #### [facility] [address] [place] [address] Dr. Judah Peñaloza Urea nitrogen/Creatinine [Mass ratio] 11.7 mg/mg Normal [facility] Comment on above: Performed By: #### L IPA, CMP, AARON, TSH, LIPID, FT3 #### [facility] [address] [place] [address] Dr. Judah Peñaloza TSHon 03-22-2022 TSH 0.603 uIU/mL Normal 0.358-3.740 [facility] Comment on above: Performed By: #### C MP, AARON, LIPA #### [facility] [address] [place] [address] Dr. Judah Peñaloza UA RANDOM W/MICROSCOPICon BACTERIA TRACE Abnormal NONE SEEN [facility] Comment on above: Performed By: #### U AMIC #### [facility] [address] [place] [address] Dr. Judah Peñaloza Bilirubin Ql (U) Negative Normal NEGATIVE [facility] Comment on above: Performed By: #### U AMIC #### [facility] [address] [place] [address] Dr. Judah Peñaloza CAST SEEN Abnormal NONE SEEN [facility] Comment on above: Performed By: #### U AMIC #### [facility] [address] [address] [address] Judah Peñaloza Clarity (U) CLEAR Normal CLEAR [facility] Comment on above: Performed By: #### U AMIC #### [facility] [address] [address] [address] Judah Peñaloza Color (U) YELLOW Normal YELLOW [facility] Comment on above: Performed By: #### U AMIC #### [facility] [address] [address] [address] Judah Peñaloza Crystals LM Nom (Urine sed) NONE SEEN Normal NONE SEEN [facility] Comment on above: Performed By: #### U AMIC #### [facility] [address] [place] [address] Dr. Judah Peñaloza Epithelial cells LM Ql (Urine sed) FEW Abnormal NONE SEEN /RARE [facility] Comment on above: Performed By: #### U AMIC #### [facility] [address] [address] [address] Judah Peñaloza Glucose Ql (U) Negative Normal NEGATIVE [facility] Comment on above: Performed By: #### U AMIC #### [facility] [address] [place] [address] Dr. Judah Peñaloza Hemoglobin Ql (U) Negative Normal NEGATIVE [facility] Comment on above: Performed By: #### U AMIC #### [facility] [address] [address] [address] Judah Peñaloza HYALINE CAST RARE Normal [facility] Comment on above: Performed By: #### U AMIC #### [facility] [address] [address] [address] Judah Peñaloza Ketones Ql (U) Negative Normal NEGATIVE [facility] Comment on above: Performed By: #### U AMIC #### [facility] [address] [place] [address] Dr. Judah Peñaloza LEUKOCYTES Negative Normal NEGATIVE [facility] Comment on above: Performed By: #### U AMIC #### [facility] [address] [place] [address] Dr. Judah Peñaloza MUCOUS NONE SEEN Normal NONE SEEN [facility] Comment on above: Performed By: #### U AMIC #### [facility] [address] [place] [address] Dr. Judah Peñaloza Nitrite Ql (U) Negative Normal NEGATIVE [facility] Comment on above: Performed By: #### U AMIC #### [facility] [address] [place] [address] Dr. Judah Peñaloza pH (U) 7.0 [pH] Normal 5-9 [facility] Comment on above: Performed By: #### U AMIC #### [facility] [address] [place] [address] Dr. Judah Peñaloza RBC 0-2 Normal 0-2 [facility] Comment on above: Performed By: #### U AMIC #### [facility] [address] [place] [address] Dr. Judah Peñaloza SPEC GRAVITY 1.020 Normal 1.005-<=1.0 25 [facility] Comment on above: Performed By: #### U AMIC #### [facility] [address] [place] [address] Dr. Judah Peñaloza UA PROTEIN Negative Normal NEGATIVE/ TRACE [facility] Comment on above: Performed By: #### U AMIC #### [facility] [address] [place] [address] Dr. Judah Peñaloza Urobilinogen Qn (U) 0.2 {Gonzales'U}/dL Normal 0.2 - 1. 0 [facility] Comment on above: Performed By: #### U AMIC #### [facility] [address] [place] [address] Dr. Judah Peñaloza WBC 0-2 Abnormal NONE SEEN [facility] Comment on above: Performed By: #### U AMIC #### [facility] [address] [place] [address] Dr. Judah RODRIGUEZOVon 01-05-2022 CNOV Office Visit (GENE ) ALOERGLA DO ([id number]) 1970 F Date Time Provider Department 01/05/22 11:45 AM BRAD BONE JR During your visit today, we recorded the following information about you: Weight Height 70.8 kg 1.575 m Brad Bone MD 01/05/2022 1:31 PM Signed CONSULTATION Requesting provider: Renetta Ridley, VFX ARTIST ([facility]) [address] [facility] [address] Alo is here today for my opinion [...] having consiptation. Last endoscopic W/U was in [place] about 3 years ago. Initial work up performed at OSH ([place], [place]): US - normal GB, wall = [...] Bone MD cc: Referring provider Renetta Ridley, VFX ARTIST ([facility]) [address] [facility] [address] Referring Provider: RENETTA RIDLEY [[id number]] Allergies As of Date: 01/05/2022 Noted Allergy Reaction AMLODIPINE 05/08/2019 7 - Swelling Comments: BLE swelling PENICILLINS 04/24/2002 Date Reviewed: 01/05/2022 Reviewed by: Krystyna Mcrae LPN - Fully Assessed Reason for Visit: Abdominal Pain [1] Cmt: 2 m Primary Visit Diagnosis:Nausea and vomiting, unspecified vomiting type [R11.2] Other Visit Diagnoses:Bloating [R14.0] Other constipation [K59.09] Order(s):CONSULT TO GASTROENTEROLOGY [3817] Order #: [id number]: 1 FUTURE Prescriptions as of 01/05/2022 - pantoprazole DR (PROTONIX) 40 mg tablet Take 40 mg by mouth once daily. - SYNTHROID 50 mcg tablet - conjugated estrogens (WA (more content not included)... 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) [I73.9] 03/19/2019 Essential hypertension [I10] 03/19/2019 [...] by MELIZA DOBBINS on 12/28/21 Normal [facility] Physician Referralon 022 Physician Referral [phone] CD:127 Normal [facility] NM HEPATOBILIARY SCAN W EFon 12-16-2021 NM [...] GURMEET PUGH Date: 2021-12-16 09:56 Normal [facility] AMYLASEon 12-12-2021 Amylase [Catalytic activity/Vol] 74 U/L Normal 25-115 [facility] Comment on above: Performed By: #### C MP, AARON, LIPA #### [facility] [address] [place] [address] Dr. Judah Peñaloza CBC AUTO DIFFon 12-12-2021 BASO # 0.0 103/ul Normal 0.0-0.1 [facility] Comment on above: Performed By: #### C BC #### [facility] [address] [address] [address] Judah Peñaloza Basophils/100 WBC (Bld) 0.2 % Normal 0.2-2.0 [facility] Comment on above: Performed By: #### C BC #### [facility] [address] [place] [address] Dr. Judah Peñaloza EO # 0.1 103/ul Normal 0.0-0.7 [facility] Comment on above: Performed By: #### C BC #### [facility] [address] [place] [address] Dr. Judah Peñaloza Eosinophils/100 WBC (Bld) 0.5 % Critically low 0.9-7.0 [facility] Comment on above: Performed By: #### C BC #### [facility] [address] [place] [address] Dr. Judah Peñaloza Erythrocyte distribution width (RBC) [Ratio] 14.1 % Normal 11.0-15.0 [facility] Comment on above: Performed By: #### C BC #### [facility] [address] [place] [address] Dr. Judah Peñaloza Hematocrit (Bld) [Volume fraction] 40.1 % Normal 36.0-48.0 [facility] Comment on above: Performed By: #### C BC #### [facility] [address] [place] [address] Dr. Judah Peñaloza Hemoglobin (Bld) [Mass/Vol] 13.5 g/dL Normal 12.0-16.0 [facility] Comment on above: Performed By: #### C BC #### [facility] [address] [place] [address] Dr. Judah Peñaloza IG # 0.03 10e3/ul Normal 0.00-0.03 [facility] Comment on above: Performed By: #### C BC #### [facility] [address] [place] [address] Dr. Judah Peñaloza IG % 0.3 % Normal 0.0-0.5 [facility] Comment on above: Performed By: #### C BC #### [facility] [address] [place] [address] Dr. Judah Peñaloza LYMPH # 2.7 103/ul Normal 1.2-3.8 [facility] Comment on above: Performed By: #### C BC #### [facility] [address] [place] [address] Dr. Judah Peñaloza Lymphocytes/100 WBC (Bld) 24.9 % Normal 20.5-60.0 [facility] Comment on above: Performed By: #### C BC #### [facility] [address] [place] [address] Dr. Judah Peñaloza MANUAL DIFF REQ NO Normal [facility] Comment on above: Performed By: #### C BC #### [facility] [address] [place] [address] Dr. Judah Peñaloza MCH (RBC) [Entitic mass] 28.5 pg Normal 26.7-34.0 [facility] Comment on above: Performed By: #### C BC #### [facility] [address] [place] [address] Dr. Judah Peñaloza MCHC (RBC) [Mass/Vol] 33.7 g/dL Normal 29.9-35.2 [facility] Comment on above: Performed By: #### C BC #### [facility] [address] [place] [address] Dr. Judah Peñaloza MCV (RBC) [Entitic vol] 84.8 fL Normal 81.0-99.0 [facility] Comment on above: Performed By: #### C BC #### [facility] [address] [place] [address] Dr. Judah Peñaloza MONO # 0.9 103/ul Critically high 0.3-0.8 [facility] Comment on above: Performed By: #### C BC #### [facility] [address] [place] [address] Dr. Judah Peñaloza Monocytes/100 WBC (Bld) 8.7 % Normal 1.7-12.0 [facility] Comment on above: Performed By: #### C BC #### [facility] [address] [place] [address] Dr. Judah Peñaloza NEUT # 7.0 103/ul Critically high 1.4-6.5 [facility] Comment on above: Performed By: #### C BC #### [facility] [address] [address] [address] Judah Peñaloza Neutrophils/100 WBC (Bld) 65.4 % Normal 43.0-75.0 [facility] Comment on above: Performed By: #### C BC #### [facility] [address] [address] [address] Judah Peñaloza Platelet mean volume (Bld) [Entitic vol] 9.0 fL Critically low 9.5-13.5 [facility] Comment on above: Performed By: #### C BC #### [facility] [address] [place] [address] Dr. Judah Peñaloza PLT 259 103/ul Normal 150-450 [facility] Comment on above: Performed By: #### C BC #### [facility] [address] [place] [address] Dr. Judah Peñaloza RBC 4.73 106/ul Normal 4.20-5.40 [facility] Comment on above: Performed By: #### C BC #### [facility] [address] [address] [address] Judah Peñaloza WBC 10.6 103/ul Normal 4.0-11.0 [facility] Comment on above: Performed By: #### C BC #### [facility] [address] [place] [address] Dr. Judah Peñaloza LIPASEon 12-12-2021 Lipase [Catalytic activity/Vol] 88.0 U/L Normal 73.0-393.0 [facility] Comment on above: Performed By: #### C AARON ZHU LIPA #### [facility] [address] [place] [address] Dr. Judah Peñaloza LIVER PROFILEon 12-12-2021 Albumin [Mass/Vol] 4.2 g/dL Normal 3.4-5.0 [facility] Comment on above: Performed By: #### C MP, AARON, LIPA #### [facility] [address] [address] [address] Judah Peñaloza Albumin/Globulin [Mass ratio] 1.4 {ratio} Normal [facility] Comment on above: Performed By: #### C MP, AARON, LIPA #### [facility] [address] [address] [address] Judah Peñaloza ALP [Catalytic activity/Vol] 127 U/L Critically high 46-116 [facility] Comment on above: Performed By: #### C MP, AARON, LIPA #### [facility] [address] [address] [address] Judah Peñaloza ALT [Catalytic activity/Vol] 54 U/L Normal 14-59 [facility] Comment on above: Performed By: #### C MP, AARON, LIPA #### [facility] [address] [address] [address] Judah Peñaloza AST [Catalytic activity/Vol] 36 U/L Normal 15-37 [facility] Comment on above: Performed By: #### C MP, AARON, LIPA #### [facility] [address] [address] [address] Judah Peñaloza BILI, CONJUGATED 0.2 mg/dL Normal 0.0-0.2 [facility] Comment on above: Performed By: #### C MP, AARON, LIPA #### [facility] [address] [address] [address] Judah Peñaloza Bilirubin [Mass/Vol] 0.8 mg/dL Normal 0.2-1.0 [facility] Comment on above: Performed By: #### C MP, AARON, LIPA #### [facility] [address] [address] [address] Judah Peñaloza Globulin (S) [Mass/Vol] 3.1 g/dL Normal [facility] Comment on above: Performed By: #### C MP, AARON, LIPA #### [facility] [address] [address] [address] Judah Peñaloza Protein [Mass/Vol] 7.3 g/dL Normal 6.4-8.2 [facility] Comment on above: Performed By: #### C AARON ZHU LIPA #### [facility] [address] [address] [address] Judah Peñaloza PROF CHEM 8 (BAS METB)on Anion gap [Moles/Vol] 18.2 mmol/L Normal Th [facility] Comment on above: Performed By: #### C AARON ZHU LIPA #### [facility] [address] [address] [address] Judah Peñaloza Calcium [Mass/Vol] 9.5 mg/dL Normal 8.5-10.1 [facility] Comment on above: Performed By: #### C AARON ZHU LIPA #### [facility] [address] [address] [address] Judah Peñaloza Chloride [Moles/Vol] 98 mmol/L Normal 98-107 [facility] Comment on above: Performed By: #### C AARON ZHU LIPA #### [facility] [address] [place] [address] Dr. Judah Peñaloza CO2 [Moles/Vol] 23.7 mmol/L Normal 21.0-32.0 [facility] Comment on above: Performed By: #### C AARON ZHU LIPA #### [facility] [address] [place] [address] Dr. Judah Peñaloza Creatinine [Mass/Vol] 2.02 mg/dL Critically high 0.55-1.02 [facility] Comment on above: Performed By: #### C AARON ZHU LIPA #### [facility] [address] [place] [address] Dr. Judah Peñaloza EGFR-AF [place] 32 mL/min/1.73m2 Critically low >=60 [facility] Comment on above: Performed By: #### C AARON ZHU LIPA #### [facility] [address] [place] [address] Dr. Judah Peñaloza EGFR-NON AF [place] 26 mL/min/1.73m2 Critically low >=60 [facility] Comment on above: Performed By: #### C AARON ZHU LIPA #### [facility] [address] [address] [address] Judah Peñaloza Glucose [Mass/Vol] 116 mg/dL Critically high 74-106 [facility] Comment on above: Performed By: #### C MP, AARON, LIPA #### [facility] [address] [address] [address] Judah Peñaloza Potassium [Moles/Vol] 3.9 mmol/L Normal 3.5-5.1 [facility] Comment on above: Performed By: #### C MP, AARON, LIPA #### [facility] [address] [address] [address] Judah Peñaloza Sodium [Moles/Vol] 136 mmol/L Normal 136-145 [facility] Comment on above: Performed By: #### C MP, AARON, LIPA #### [facility] [address] [place] [address] Dr. Judah Peñaloza Urea nitrogen [Mass/Vol] 24.0 mg/dL Critically high 7.0-18.0 [facility] Comment on above: Performed By: #### C AUDRA, AARON, LIPA #### [facility] [address] [address] [address] Judah Peñaloza Urea nitrogen/Creatinine [Mass ratio] 11.9 mg/mg Normal [facility] Comment on above: Performed By: #### C AUDRA, AARON, LIPA #### [facility] [address] [place] [address] Dr. Judah Peñaloza US SINGLE QUAD RT [...] by: GURMEET PUGH Date: 2021-12-12 10:00 Normal [facility] H PYLORI ANTIBODY IGGon 11-05 H. PYLORI IGG ABS 0.35 Index Value Normal 0.00-0.79 [facility] Comment on above: Result Comment: Nega tive <0.80 Equivocal 0.80 - 0.89 Positive >0.89 Performed By: #### H PYLLC #### [facility] [address] [place] [address] Dr. Judah Peñaloza AMYLASEon 11-29-2021 Amylase [Catalytic activity/Vol] 73 U/L Normal 25-115 [facility] Comment on above: Performed By: #### C MP, AARON, LIPA #### [facility] [address] [place] [address] Dr. Judah Peñaloza CBC AUTO DIFFon 11-29-2021 BASO # 0.1 103/ul Normal 0.0-0.1 [facility] Comment on above: Performed By: #### C BC #### [facility] [address] [place] [address] Dr. Judah Peñaloza Basophils/100 WBC (Bld) 0.6 % Normal 0.2-2.0 [facility] Comment on above: Performed By: #### C BC #### [facility] [address] [place] [address] Dr. Judah Peñaloza EO # 0.1 103/ul Normal 0.0-0.7 [facility] Comment on above: Performed By: #### C BC #### [facility] [address] [place] [address] Dr. Judah Peñaloza Eosinophils/100 WBC (Bld) 0.7 % Critically low 0.9-7.0 [facility] Comment on above: Performed By: #### C BC #### [facility] [address] [place] [address] Dr. Judah Peñaloza Erythrocyte distribution width (RBC) [Ratio] 14.0 % Normal 11.0-15.0 [facility] Comment on above: Performed By: #### C BC #### [facility] [address] [place] [address] Dr. Judah Peñaloza Hematocrit (Bld) [Volume fraction] 42.7 % Normal 36.0-48.0 [facility] Comment on above: Performed By: #### C BC #### [facility] [address] [place] [address] Dr. Judah Peñaloza Hemoglobin (Bld) [Mass/Vol] 13.9 g/dL Normal 12.0-16.0 [facility] Comment on above: Performed By: #### C BC #### [facility] [address] [place] [address] Dr. Judah Peñaloza IG # 0.02 10e3/ul Normal 0.00-0.03 [facility] Comment on above: Performed By: #### C BC #### [facility] [address] [place] [address] Dr. Judah Peñaloza IG % 0.2 % Normal 0.0-0.5 [facility] Comment on above: Performed By: #### C BC #### [facility] [address] [place] [address] Dr. Judah Peñaloza LYMPH # 3.1 103/ul Normal 1.2-3.8 [facility] Comment on above: Performed By: #### C BC #### [facility] [address] [place] [address] Dr. Judah Peñaloza Lymphocytes/100 WBC (Bld) 34.5 % Normal 20.5-60.0 [facility] Comment on above: Performed By: #### C BC #### [facility] [address] [place] [address] Dr. Judah Peñaloza MANUAL DIFF REQ NO Normal [facility] Comment on above: Performed By: #### C BC #### [facility] [address] [place] [address] Dr. Judah Peñaloza MCH (RBC) [Entitic mass] 28.2 pg Normal 26.7-34.0 [facility] Comment on above: Performed By: #### C BC #### [facility] [address] [address] [address] Judah Peñaloza MCHC (RBC) [Mass/Vol] 32.6 g/dL Normal 29.9-35.2 [facility] Comment on above: Performed By: #### C BC #### [facility] [address] [place] [address] Dr. Judah Peñaloza MCV (RBC) [Entitic vol] 86.6 fL Normal 81.0-99.0 [facility] Comment on above: Performed By: #### C BC #### [facility] [address] [place] [address] Dr. Judah Peñaloza MONO # 0.7 103/ul Normal 0.3-0.8 [facility] Comment on above: Performed By: #### C BC #### [facility] [address] [place] [address] Dr. Judah Peñaloza Monocytes/100 WBC (Bld) 7.7 % Normal 1.7-12.0 [facility] Comment on above: Performed By: #### C BC #### [facility] [address] [place] [address] Dr. Judah Peñaloza NEUT # 5.1 103/ul Normal 1.4-6.5 [facility] Comment on above: Performed By: #### C BC #### [facility] [address] [place] [address] Dr. Judah Peñaloza Neutrophils/100 WBC (Bld) 56.3 % Normal 43.0-75.0 [facility] Comment on above: Performed By: #### C BC #### [facility] [address] [place] [address] Dr. Judah Peñaloza Platelet mean volume (Bld) [Entitic vol] 9.3 fL Critically low 9.5-13.5 [facility] Comment on above: Performed By: #### C BC #### [facility] [address] [place] [address] Dr. Judah Peñaloza PLT 382 103/ul Normal 150-450 [facility] Comment on above: Performed By: #### C BC #### [facility] [address] [place] [address] Dr. Judah Peñaloza RBC 4.93 106/ul Normal 4.20-5.40 [facility] Comment on above: Performed By: #### C BC #### [facility] [address] [place] [address] Dr. Judah Peñaloza WBC 9.0 103/ul Normal 4.0-11.0 [facility] Comment on above: Performed By: #### C BC #### [facility] [address] [place] [address] Dr. Judah Peñaloza LIPASEon 11-29-2021 Lipase [Catalytic activity/Vol] 89.0 U/L Normal 73.0-393.0 [facility] Comment on above: Performed By: #### C MP, AARON, LIPA #### [facility] [address] [place] [address] Dr. Judah Peñaloza PROF 14(COMP METB)on 022 Albumin [Mass/Vol] 4.3 g/dL Normal 3.4-5.0 [facility] Comment on above: Performed By: #### C MP, AARON, LIPA #### [facility] [address] [place] [address] Dr. Judah Peñaloza Albumin/Globulin [Mass ratio] 1.2 {ratio} Normal [facility] Comment on above: Performed By: #### C MP, AARON, LIPA #### [facility] [address] [place] [address] Dr. Judah Peñaloza ALP [Catalytic activity/Vol] 117 U/L Critically high 46-116 [facility] Comment on above: Performed By: #### C MP, AARON, LIPA #### [facility] [address] [place] [address] Dr. Judah Peñaloza ALT [Catalytic activity/Vol] 50 U/L Normal 14-59 [facility] Comment on above: Performed By: #### C MP, AARON, LIPA #### [facility] [address] [place] [address] Dr. Judah Peñaloza Anion gap [Moles/Vol] 17.0 mmol/L Normal [facility] Comment on above: Performed By: #### C AARON ZHU LIPA #### [facility] [address] [place] [address] Dr. Judah Peñaloza AST [Catalytic activity/Vol] 37 U/L Normal 15-37 [facility] Comment on above: Performed By: #### C AARON ZHU, LIPA #### [facility] [address] [place] [address] Dr. Judah Peñaloza Bilirubin [Mass/Vol] 0.6 mg/dL Normal 0.2-1.0 [facility] Comment on above: Performed By: #### C AARON ZHU, LIPA #### [facility] [address] [place] [address] Dr. Judah Peñaloza Calcium [Mass/Vol] 9.5 mg/dL Normal 8.5-10.1 [facility] Comment on above: Performed By: #### C AARON ZHU LIPA #### [facility] [address] [place] [address] Dr. Judah Peñaloza Chloride [Moles/Vol] 100 mmol/L Normal 98-107 [facility] Comment on above: Performed By: #### C AARON ZHU, LIPA #### [facility] [address] [place] [address] Dr. Judah Peñaloza CO2 [Moles/Vol] 24.0 mmol/L Normal 21.0-32.0 [facility] Comment on above: Performed By: #### C AARON HZU, LIPA #### [facility] [address] [place] [address] Dr. Judah Peñaloza Creatinine [Mass/Vol] 0.97 mg/dL Normal 0.55-1.02 [facility] Comment on above: Performed By: #### C AARON ZHU LIPA #### [facility] [address] [place] [address] Dr. Judah Peñaloza EGFR-AF [place]I >60 Normal >=60 The [facility] Comment on above: Performed By: #### C AARON ZHU, LIPA #### [facility] [address] [address] [address] Judah Peñaloza EGFR-NON AF [place] >60 Normal >=60 [facility] Comment on above: Performed By: #### C AARON ZHU LIPA #### [facility] [address] [address] [address] Judah Peñaloza Globulin (S) [Mass/Vol] 3.5 g/dL Normal [facility] Comment on above: Performed By: #### C AARON ZHU LIPA #### [facility] [address] [place] [address] Dr. Judah Peñaloza Glucose [Mass/Vol] 105 mg/dL Normal 74-106 [facility] Comment on above: Performed By: #### C AARON ZHU LIPA #### [facility] [address] [place] [address] Dr. Judah Peñaloza Potassium [Moles/Vol] 4.0 mmol/L Normal 3.5-5.1 [facility] Comment on above: Performed By: #### C AARON ZHU LIPA #### [facility] [address] [place] [address] Dr. Judah Peñaloza Protein [Mass/Vol] 7.8 g/dL Normal 6.4-8.2 [facility] Comment on above: Performed By: #### C AARON ZHU LIPA #### [facility] [address] [place] [address] Dr. Judah Peñaloza Sodium [Moles/Vol] 137 mmol/L Normal 136-145 [facility] Comment on above: Performed By: #### C AARON ZHU LIPA #### [facility] [address] [place] [address] Dr. Judah Peñaloza Urea nitrogen [Mass/Vol] 13.0 mg/dL Normal 7.0-18.0 [facility] Comment on above: Performed By: #### C AARON ZHU LIPA #### [facility] [address] [address] [address] Judah Peñaloza Urea nitrogen/Creatinine [Mass ratio] 13.4 mg/mg Normal [facility] Comment on above: Performed By: #### C MP, AARON, LIPA #### [facility] [address] [address] [address] Judah Peñaloza UA RANDOM W/MICROSCOPICon BACTERIA TRACE Abnormal NONE SEEN [facility] Comment on above: Performed By: #### U AMIC #### [facility] [address] [address] [address] Judah Peñaloza Bilirubin Ql (U) Negative Normal NEGATIVE The [facility] Comment on above: Performed By: #### U AMIC #### [facility] [address] [address] [address] Judah Peñaloza CAST NONE SEEN Normal NONE SEEN [facility] Comment on above: Performed By: #### U AMIC #### [facility] [address] [address] [address] Judah Peñaloza Clarity (U) CLOUDY Abnormal CLEAR [facility] Comment on above: Performed By: #### U AMIC #### [facility] [address] [address] [address] Judah Peñaloza Color (U) YELLOW Normal YELLOW [facility] Comment on above: Performed By: #### U AMIC #### [facility] [address] [address] [address] Judah Peñaloza Crystals LM Nom (Urine sed) SEEN Abnormal NONE SEEN [facility] Comment on above: Performed By: #### U AMIC #### [facility] [address] [address] [address] Judah Peñaloza Epithelial cells LM Ql (Urine sed) RARE Normal NONE SEEN /RARE [facility] Comment on above: Performed By: #### U AMIC #### [facility] [address] [address] [address] Judah Peñaloza Glucose Ql (U) Negative Normal NEGATIVE [facility] Comment on above: Performed By: #### U AMIC #### [facility] [address] [address] [address] Judah Peñaloza Hemoglobin Ql (U) Negative Normal NEGATIVE [facility] Comment on above: Performed By: #### U AMIC #### [facility] [address] [address] [address] Judah Peñaloza Ketones Ql (U) Negative Normal NEGATIVE [facility] Comment on above: Performed By: #### U AMIC #### [facility] [address] [place] [address] Dr. Judah Peñaloza LEUKOCYTES Negative Normal NEGATIVE [facility] Comment on above: Performed By: #### U AMIC #### [facility] [address] [address] [address] Judah Peñaloza MUCOUS NONE SEEN Normal NONE SEEN [facility] Comment on above: Performed By: #### U AMIC #### [facility] [address] [place] [address] Dr. Judah Peñaloza Nitrite Ql (U) Negative Normal NEGATIVE [facility] Comment on above: Performed By: #### U AMIC #### [facility] [address] [place] [address] Dr. Judah Peñaloza pH (U) 6.0 [pH] Normal 5-9 [facility] Comment on above: Performed By: #### U AMIC #### [facility] [address] [place] [address] Dr. Judah Peñaloza RBC NONE SEEN Abnormal 0-2 [facility] Comment on above: Performed By: #### U AMIC #### [facility] [address] [place] [address] Dr. Judah Peñaloza SPEC GRAVITY 1.025 Normal 1.005-<=1.0 25 [facility] Comment on above: Performed By: #### U AMIC #### [facility] [address] [place] [address] Dr. Judah Peñaloza UA PROTEIN Negative Normal NEGATIVE/ TRACE [facility] Comment on above: Performed By: #### U AMIC #### [facility] [address] [place] [address] Dr. Judah Peñaloza Urobilinogen Qn (U) 1.0 {Gonzales'U}/dL Normal 0.2 - 1. 0 [facility] Comment on above: Performed By: #### U AMIC #### [facility] [address] [place] [address] Dr. Judah Peñaloza WBC 0-2 Abnormal NONE SEEN [facility] Comment on above: Performed By: #### U AMIC #### [facility] [address] [place] [address] Dr. Judah Peñaloza US THYROIDon 10-31-2021 US [...] GURMEET PUGH Date: 2021-10-31 16:25 Normal [facility] FREE T3on 10-25-2021 FREE T3 2.52 pg/mlL Normal 2.18-3.98 [facility] Comment on above: Performed By: #### C AARON ZHU LIPA #### [facility] [address] [place] [address] Dr. Judah Peñaloza FREE T4on 10-25-2021 Free T4 [Mass/Vol] 1.07 ng/dL Normal 0.76-1.46 [facility] Comment on above: Performed By: #### C AARON ZHU LIPA #### [facility] [address] [place] [address] Dr. Judah Peñaloza TSHon 10-25-2021 TSH 0.747 uIU/mL Normal 0.358-3.740 [facility] Comment on above: Performed By: #### C AARON ZHU LIPA #### [facility] [address] [place] [address] Dr. Judah Peñaloza FREE T4on 09-22-2021 Free T4 [Mass/Vol] 1.11 ng/dL Normal 0.76-1.46 [facility] Comment on above: Performed By: #### C AARON ZHU, LIPA #### [facility] [address] [address] [address] Judah Peñaloza PROF CHEM 8 (BAS METB)on Anion gap [Moles/Vol] 14.0 mmol/L Normal Th [facility] Comment on above: Performed By: #### C AARON ZHU, LIPA #### [facility] [address] [place] [address] Dr. Judah Peñaloza Calcium [Mass/Vol] 9.1 mg/dL Normal 8.5-10.1 [facility] Comment on above: Performed By: #### C AARON ZHU LIPA #### [facility] [address] [place] [address] Dr. Judah Peñaloza Chloride [Moles/Vol] 103 mmol/L Normal 98-107 [facility] Comment on above: Performed By: #### C AARON ZHU, LIPA #### [facility] [address] [place] [address] Dr. Judah Peñaloza CO2 [Moles/Vol] 27.1 mmol/L Normal 21.0-32.0 [facility] Comment on above: Performed By: #### C AARON ZHU, LIPA #### [facility] [address] [place] [address] Dr. Judah Peñaloza Creatinine [Mass/Vol] 0.91 mg/dL Normal 0.55-1.02 [facility] Comment on above: Performed By: #### C AARON ZHU, LIPA #### [facility] [address] [place] [address] Dr. Judah Peñaloza EGFR-AF [place] >60 Normal >=60 The [facility] Comment on above: Performed By: #### C AARON ZHU, LIPA #### [facility] [address] [place] [address] Dr. Judah Peñaloza EGFR-NON AF [place] >60 Normal >=60 [facility] Comment on above: Performed By: #### C AARON ZHU, LIPA #### [facility] [address] [place] [address] Dr. Judah Peñaloza Glucose [Mass/Vol] 101 mg/dL Normal 74-106 [facility] Comment on above: Performed By: #### C AARON ZHU LIPA #### [facility] [address] [address] [address] Judah Peñaloza Potassium [Moles/Vol] 4.1 mmol/L Normal 3.5-5.1 [facility] Comment on above: Performed By: #### C AARON ZHU, LIPA #### [facility] [address] [place] [address] Dr. Judah Peñaloza Sodium [Moles/Vol] 140 mmol/L Normal 136-145 [facility] Comment on above: Performed By: #### C AARON ZHU LIPA #### [facility] [address] [place] [address] Dr. Judah Peñaloza Urea nitrogen [Mass/Vol] 11.0 mg/dL Normal 7.0-18.0 [facility] Comment on above: Performed By: #### C AARON ZHU, LIPA #### [facility] [address] [place] [address] Dr. Judah Peñaloza Urea nitrogen/Creatinine [Mass ratio] 12.1 mg/mg Normal [facility] Comment on above: Performed By: #### C AARON ZHU, LIPA #### [facility] [address] [place] [address] Dr. Judah Peñaloza TSHon 09-22-2021 TSH 0.118 uIU/mL Critically low 0.358-3.740 [facility] Comment on above: Performed By: #### C AARON ZHU, LIPA #### [facility] [address] [place] [address] Dr. Judah Peñaloza TSH RANGE SEE BELOW Normal [facility] Comment on above: Result Comment: <0.3 4 UIU/ml HYPERTHYROID 0.34-5.60 UIU/ml EUTHYROID >5.60 UIU/ml HYPOTHYROID Performed By: #### C AARON ZHU, LIPA #### [facility] [address] [place] [address] Dr. Judah Campos 09-20-2021 CNOV Office Visit (MIRTA ) ALOREGLA Guillermo ([id number]) 1970 F Date Time Provider Department 09/20/21 [...] Creatinine (more content not included)... Normal [facility] URINALYSIS, REFLEX MICROSCOP ICon 09-20-2021 Bilirubin Ql (U) Negative Normal Negative [facility] Comment on above: Order Comment: Speci men Type: URINE SPECIMENOrdering Facility: [facility] Address: [address] [place] [address] Performed By: #### L [id number] ####[facility] Q7CLIA [id number] [place] [address] [place] Clarity (Unsp spec) Clear Normal Clear [facility] Comment on above: Order Comment: Speci men Type: URINE SPECIMENOrdering Facility: [facility] Address: [address] [address] Performed By: #### L [id number] ####[facility] Q7CLIA [id number] [place] [address] [place] Color (U) Light Yellow Normal Yellow [facility] Comment on above: Order Comment: Speci men Type: URINE SPECIMENOrdering Facility: [facility] Address: [address] [place] [address] Performed By: #### L [id number] ####[facility] Q7CLIA [id number] [address] [place] Glucose Test strip (U) [Mass/Vol] Negative Normal Negative [facility] Comment on above: Order Comment: Speci men Type: URINE SPECIMENOrdering Facility: [facility] Address: [address] [place], [place] [id number] Performed By: #### L [id number] ####[facility] Q7CLIA [id number] [place] [address] [place] Hemoglobin Ql (U) Negative Normal Negative [facility] Comment on above: Order Comment: Speci men Type: URINE SPECIMENOrdering Facility: [facility] Address: [address] [place] [id number] Performed By: #### L [id number] ####[facility] Q7CLIA [id number] [address] [place] Ketones Ql (U) Negative Normal Negative [facility] Comment on above: Order Comment: Speci men Type: URINE SPECIMENOrdering Facility: [facility] Address: [address] [place] [id number] Performed By: #### L [id number] ####[facility] Q7CLIA [id number] [address] [place] Leukocyte esterase Test strip Ql (U) Negative Normal Negative [facility] Comment on above: Order Comment: Speci men Type: URINE SPECIMENOrdering Facility: [facility] Address: [address] [place] [address] Performed By: #### L [id number] ####[facility] Q7CLIA [id number] [place] [address] [place] Nitrite Ql (U) Negative Normal Negative [facility] Comment on above: Order Comment: Speci men Type: URINE SPECIMENOrdering Facility: [facility] Address: [address] [address] Performed By: #### L [id number] ####[facility] Q7CLIA [id number] [place] [address] [place] pH (U) 6.5 [pH] Normal 5.0-8.0 [facility] Comment on above: Order Comment: Speci men Type: URINE SPECIMENOrdering Facility: [facility] Address: [address] [place] [address] Performed By: #### L [id number] ####[facility] Q7CLIA [id number] [place] [address] [place] Protein (U) [Mass/Vol] Negative Normal Negative [facility] Comment on above: Order Comment: Speci men Type: URINE SPECIMENOrdering Facility: [facility] Address: [address] [place] [address] Performed By: #### L [id number] ####[facility] Q7CLIA [id number] [place] [address] [place] Specific gravity (U) [Rel density] 1.009 Normal 1.005-1.030 [facility] Comment on above: Order Comment: Speci men Type: URINE SPECIMENOrdering Facility: [facility] Address: [address] [place] [address] Performed By: #### L [id number] ####[facility] Q7CLIA [id number] [address] [place] Urobilinogen Ql (U) Negative Normal Negative [facility] Comment on above: Order Comment: Speci men Type: URINE SPECIMENOrdering Facility: [facility] Address: [address] [place], [place] [id number] Performed By: #### L [id number] ####[facility] Q7CLIA [id number] [place] [address] [place] CNOVon 09-09-2021 CNOV Office Visit (CARDAV ) REGLA PRAJAPATI ([id number]) 1970 F Date Time Provider Department 09/09/21 [...] reste (more content not included)... Normal [facility] THYROID ANTIBODIESon Thyroglobulin Antibody <1.0 Normal 0.0-0.9 [facility] Comment on above: Result Comment: Thyr oglobulin Antibody measured by [employer] Performed By: #### C BC #### [facility] [address] [place] [address] Dr. Judah Peñaloza Thyroid Peroxidase (TPO) Ab <8 Normal 0-34 [facility] Comment on above: Performed By: #### C BC #### [facility] [address] [place] [address] Dr. Judah Peñaloza PROF CHEM 8 (BAS METB)on Anion gap [Moles/Vol] 15.4 mmol/L Normal [facility] Comment on above: Performed By: #### C AARON ZHU LIPA #### [facility] [address] [place] [address] Dr. Judah Peñaloza Calcium [Mass/Vol] 8.8 mg/dL Normal 8.5-10.1 [facility] Comment on above: Performed By: #### C AARON ZHU LIPA #### [facility] [address] [place] [address] Dr. Judha Peñaloza Chloride [Moles/Vol] 103 mmol/L Normal 98-107 [facility] Comment on above: Performed By: #### C AARON ZHU LIPA #### [facility] [address] [place] [address] Dr. Judah Peñaloza CO2 [Moles/Vol] 27.8 mmol/L Normal 21.0-32.0 [facility] Comment on above: Performed By: #### C AARON ZHU LIPA #### [facility] [address] [address] [address] Judah Peñaloza Creatinine [Mass/Vol] 1.00 mg/dL Normal 0.55-1.02 [facility] Comment on above: Performed By: #### C AARON ZHU LIPA #### [facility] [address] [address] [address] Judah Peñaloza EGFR-AF [place]I >60 Normal >=60 [facility] Comment on above: Performed By: #### C AARON ZHU LIPA #### [facility] [address] [place] [address] Dr. Judah Peñaloza EGFR-NON AF [place] 59 mL/min/1.73m2 Critically low >=60 [facility] Comment on above: Performed By: #### C AARON ZHU LIPA #### [facility] [address] [address] [address] Judah Peñaloza Glucose [Mass/Vol] 80 mg/dL Normal 74-106 [facility] Comment on above: Performed By: #### C AARON ZHU LIPA #### [facility] [address] [address] [address] Judah Peñaloza Potassium [Moles/Vol] 4.2 mmol/L Normal 3.5-5.1 [facility] Comment on above: Performed By: #### C AARON ZHU LIPA #### [facility] [address] [address] [address] Judah Peñaloza Sodium [Moles/Vol] 142 mmol/L Normal 136-145 [facility] Comment on above: Performed By: #### C AARON ZHU LIPA #### [facility] [address] [address] [address] Judah Peñaloza Urea nitrogen [Mass/Vol] 14.0 mg/dL Normal 7.0-18.0 [facility] Comment on above: Performed By: #### C AARON ZHU, LIPA #### [facility] [address] [address] [address] Judah Peñaloza Urea nitrogen/Creatinine [Mass ratio] 14.0 mg/mg Normal [facility] Comment on above: Performed By: #### C MP AARON, LIPA #### [facility] [address] [address] [address] Judah Peñaloza PAP ACOG PANEL 2: 30 to 65on 08-22-2021 . . Normal [facility] Comment on above: Result Comment: Perf ormed at: WB Performed By: #### C BC #### [facility] [address] [address] [address] Judah Peñaloza Age Gdln ACOG Testing 30-65 [facility] Comment on above: Performed By: #### C BC #### [facility] [address] [place] [address] Dr. Judah Peñaloza DIAGNOSIS: Comment Normal [facility] Comment on above: Result Comment: NEGA TIVE FOR INTRAEPITHELIAL LESION OR MALIGNANCY. Performed at: WB Performed By: #### C BC #### [facility] [address] [address] [address] Judah Peñaloza HPV Aptima Negative Normal Negative [facility] Comment on above: Result Comment: This nucleic acid amplification test detects fourteen high-risk HPV types (16,18,31,33,35,39,45,51,52,56,58,59,66,68) without differentiation. Performed at: =G Performed By: #### C BC #### [facility] [address] [address] [address] Judah Peñaloza Methodology: Comment [facility] Comment on above: Result Comment: This liquid based ThinPrep(R) pap test was screened with the use of an image guided system. Performed at: WB Performed By: #### C BC #### [facility] [address] [address] [address] Judah Peñaloza Note: Comment Normal [facility] Comment on above: Result Comment: The Pap smear is a screening test designed to aid in the detection of premalignant and malignant conditions of the uterine cervix. It is not a diagnostic procedure and should not be used as the sole means of detecting cervical cancer. Both false-positive and false-negative reports do occur. . Performed at: WB Performed By: #### C BC #### [facility] [address] [place] [address] Dr. Judah Peñaloza Performed by: Comment Normal [facility] Comment on above: Result Comment: Shaggy Schulz, Calibration Laboratory Technician (ASCP) Performed at: WB Performed By: #### C BC #### [facility] [address] [place] [address] Dr. Judah Peñaloza Specimen adequacy: Comment Normal [facility] [place] Comment on above: Result Comment: Sati sfactory for evaluation. No endocervical component is identified. Performed at: [facility] Performed By: #### C BC #### [facility] [address] [place] [address] Dr. Judah Peñaloza BD DXA - AXIAL SKELETONon BD DXA - AXIAL SKELETON * * *Final Repor t* * * DATE OF EXAM: Aug 12 2021 11:38AM [facility] 0804 - BD DXA - AXIAL SKELETON / PROCEDURE REASON: multiple diagnoses * * * * Physician Interpretation * * * * EXAMINATION: DXA BONE DENSITOMETRY BD DXA - AXIAL SKELETON PATIENT DEMOGRAPHICS: Age: 50 years, Race: , Gender: Female SCANNER INFORMATION: DXA Model: [facility] Alicia - [employer] W [id number] Site Scanned: Lumbar spine and left hip [...] www.nof.org International Society of Clinical Densitometry www.iscd.org Rn Endoscopy: [id number] Transcribe Date/Time: Aug 12 2021 11:39A Dictated by : GURPREET TUCKER MD This examination was interpreted and the report reviewed and electronically signed by: GURPREET TUCKER MD on Aug 12 2021 12:33PM EST [id number] -[id number] Normal [facility] DXA-AXIAL SKELETONon 04-08-2 022 LOWEST T-SCORE -1.4 [facility] No Panel Informationon 05-02 [facility] CTA ABDOMEN W IVCONon 2020 [facility] HISTORY PHYSICALon 0 HISTORY PHYSICAL HNO ID: [id number] Author: Mau Morales Service: Neurosurgery Author Type: [...] March 03, 2020 TIME: 12:48 PM PAGER: [facility] IR REBECCA CCA H/N BILAT W/WO AR [...] TIME: 2:09 PM ATTENDING: Olive Catherine MD KNUCKLE STRAP SEWER (FELLOW): Mau Morales MD The procedure was performed by the attending, with an wellness assistant. The attending performed the following procedural activities: Diagnostic cerebral angiogram. ANGIOGRAPHY MATERIALS: Diagnostic catheter: 5 Bahraini Vert Catheter Guidewire: 0.035 inch angled tapered Glidewire. Fluoroscopic Radiation Summary: Plane A, Air Kerma: 273.4 mGy Plane B, Air Kerma: 109.2 mGy Dose Area Product (DAP): 71179.0 mGy*cm2 Fluoro time: 11:30 min:sec Contrast (arterial): 120 ml of OMNIPAQUE 300 ANESTHESIA: Conscious sedation with fentanyl and Versed were administered by IV with continuous monitoring by a dedicated nurse. Pulsed oximetry, cardiopulmonary monitoring and electrocardiography was performed throughout the procedure. Intra-service time (monitoring for moderate sedation) (starts with administration of agent, ends when continuous haov-dj-jher time ends): 45 minutes. Patient monitoring: I [...] right common femoral artery utilizing a 4 Bahraini micropuncture set. A 5 Bahraini sheath was inserted and connected to heparinized [...] superior cerebellar arteries are normal. The right TREATING PLANT PUMPER is normal, and the left TREATING PLANT PUMPER is not opacified due to the -type [...] superior cerebellar arteries are normal. The right TREATING PLANT PUMPER is normal, and the left TREATING PLANT PUMPER is not opacified due to the -type [...] Mild left vertebral artery origin stenosis. Left TREATING PLANT PUMPER and left persistent trigeminal artery, a hypoplastic posterior circulation. Rn Endoscopy: PSCB Transcribe Date/Time: Mar 03 2020 2:26P Dictated by : MAU MORALES MD This examination was interpreted and the report reviewed and electronically signed by: OLIVE CATHERINE MD on Mar 04 2020 10:26AM EST [id number] [facility] IR-UNI SELECT VERT W/WO ARCH on 03-03-2020 [...] TIME: 2:09 PM ATTENDING: Olive Catherine MD KNUCKLE STRAP SEWER (FELLOW): Mau Morales MD The procedure was performed by the attending, with an wellness assistant. The attending performed the following procedural activities: Diagnostic cerebral angiogram. ANGIOGRAPHY MATERIALS: Diagnostic catheter: 5 Bahraini Vert Catheter Guidewire: 0.035 inch angled tapered Glidewire. Fluoroscopic Radiation Summary: Plane A, Air Kerma: 273.4 mGy Plane B, Air Kerma: 109.2 mGy Dose Area Product (DAP): 71157.0 mGy*cm2 Fluoro time: 11:30 min:sec Contrast (arterial): 120 ml of OMNIPAQUE 300 ANESTHESIA: Conscious sedation with fentanyl and Versed were administered by IV with continuous monitoring by a dedicated nurse. Pulsed oximetry, cardiopulmonary monitoring and electrocardiography was performed throughout the procedure. Intra-service time (monitoring for moderate sedation) (starts with administration of agent, ends when continuous ktax-ap-ondu time ends): 45 minutes. Patient monitoring: I [...] right common femoral artery utilizing a 4 Bahraini micropuncture set. A 5 Bahraini sheath was inserted and connected to heparinized [...] superior cerebellar arteries are normal. The right TREATING PLANT PUMPER is normal, and the left TREATING PLANT PUMPER is not opacified due to the -type [...] superior cerebellar arteries are normal. The right TREATING PLANT PUMPER is normal, and the left TREATING PLANT PUMPER is not opacified due to the -type [...] Mild left vertebral artery origin stenosis. Left TREATING PLANT PUMPER and left persistent trigeminal artery, a hypoplastic posterior circulation. Rn Endoscopy: LYNN Transcribe Date/Time: Mar 03 2020 2:26P Dictated by : MAU MORALES MD This examination was interpreted and the report reviewed and electronically signed by: OLIVE CATHERINE MD on Mar 04 2020 10:26AM EST [id number] [facility] IR-UNI VERT-SC/INOM INJECTon 03-03-2020 IR-UNI VERT-SC/INOM INJECT [...] TIME: 2:09 PM ATTENDING: Olive Catherine MD KNUCKLE STRAP SEWER (FELLOW): Mau Morales MD The procedure was performed by the attending, with an wellness assistant. The attending performed the following procedural activities: Diagnostic cerebral angiogram. ANGIOGRAPHY MATERIALS: Diagnostic catheter: 5 Bahraini Vert Catheter Guidewire: 0.035 inch angled tapered Glidewire. Fluoroscopic Radiation Summary: Plane A, Air Kerma: 273.4 mGy Plane B, Air Kerma: 109.2 mGy Dose Area Product (DAP): 39136.0 mGy*cm2 Fluoro time: 11:30 min:sec Contrast (arterial): 120 ml of OMNIPAQUE 300 ANESTHESIA: Conscious sedation with fentanyl and Versed were administered by IV with continuous monitoring by a dedicated nurse. Pulsed oximetry, cardiopulmonary monitoring and electrocardiography was performed throughout the procedure. Intra-service time (monitoring for moderate sedation) (starts with administration of agent, ends when continuous phvl-qa-elgc time ends): 45 minutes. Patient monitoring: I [...] right common femoral artery utilizing a 4 Bahraini micropuncture set. A 5 Bahraini sheath was inserted and connected to heparinized [...] superior cerebellar arteries are normal. The right TREATING PLANT PUMPER is normal, and the left TREATING PLANT PUMPER is not opacified due to the -type [...] superior cerebellar arteries are normal. The right TREATING PLANT PUMPER is normal, and the left TREATING PLANT PUMPER is not opacified due to the -type [...] Mild left vertebral artery origin stenosis. Left TREATING PLANT PUMPER and left persistent trigeminal artery, a hypoplastic posterior circulation. Rn Endoscopy: PSCB Transcribe Date/Time: Mar 03 2020 2:26P Dictated by : MAU MORALES MD This examination was interpreted and the report reviewed and electronically signed by: OLIVE CATHERINE MD on Mar 04 2020 10:26AM EST [id number] Normal [facility] NURSING PROGon 03-03-2020 NURSING PROG HNO ID: [id number] Author: Antonio (Rn) RAMOAN Hernandez Service: Nursing Author Type: Registered Nurse [...] None Electronically Signed By: Antonio Hernandez RN [facility] PT EDon 03-03-2020 PT ED HNO ID: [id number] Author: Gordo BrinkRnRadha Elaine RN Service: Radiology [...] None Electronically Signed By: Gordo Elaine RN [facility] PT ED HNO ID: [id number] Author: William BrinkRnRadha Mccray RN Service: Radiology [...] None Electronically Signed By: William Mccray RN [facility] 03-02-2020 CNPN Telephone (RGFV) REGLA PRAJAPATI ([id number]) 1970 F Date Time Provider Department 03/02/20 REUBEN MONROY (RT) [facility] During your visit today, we recorded the following information about you: Allergies As of Date: 03/02/2020 Noted Allergy Reaction AMLODIPINE 05/08/2019 7 - Swelling Comments: BLE swelling PENICILLINS 04/24/2002 Date Reviewed: 02/18/2020 Reviewed by: Umair (Rn) RAMONA Fitch - Fully Assessed Reason for Visit: Reminder Call [[id number]] Cmt: spoke to Regla and gave pre-angiogram [...] Encounter Status:Closed by REUBEN MONROY on 03/02/20 [facility] HOSPon 02-18-2020 HOSP Patient:Victor Manuel Prajapati MRN: [...] Prajapati, 1970). Yes Number to return call [phone] Reason for Call : Patient Question - patient called stating she is suppose to have an angiogram with Dr. Catherine on Mar 03 and she does not see it in her MyChart. Please call Regla at [phone] Thank you calling [facility] Neurological [place]. You will receive a return call within [...] request completed today. Sent to Zoey Crespo MACHINE MAINTENANCE SERVICER to sign the orders so it may be scheduled for 03/03 as requested Progress Notes (NEUS CEREBROVASC MAIN): Elliott Salazar, 02/12/2020 3:16 PM Signed CEREBROVASCULAR CENTER Established nVirtual Visit Consultation [place]: [place] [id number] [facility] [id number] CEREBROVASCULAR HISTORY Regla Prajapati is a 49 [...] the age of 33 Paternal uncle with OR at age of 50 ?she has had 3 pregnancies in past without complications In 03/08/20-- brief spell of rt facial twitching -- no LOC -- was worked up at [facility] - no acute changes on MRI brain [...] Elliott Salazar MD Staff, Cerebrovascular Center [address] [facility] [address] 12/11/2019 3:10 [place] [id number] [facility] [address] Elliott Salazar, 02/12/2020 3:18 PM Signed Cerebral angiogram to be scheduled at [facility] ~~~~~~~~~~~~~~~~~~~~~~ ~~~~~~~~~~~~~~~~~~~~~~ ~~~~~~~~~~~~~~~~~~~~~~ ~~~~~~ Stroke Signs and [...] regimen, may be considered Adopted from the [place] [employer] Attack : A Guideline for Healthcare Professionals From the [place] Heart Guidelines for the Prevention of Stroke in Patients With Stroke or Transient Ischemic: Stroke 2010 Elliott Salazar, 02/12/2020 3:19 PM Signed Addended by: ELLIOTT SALAZAR on: 02/12/2020 03:19 PM Modules accepted: Orders Normal [facility] No Panel Informationon 01-06 [facility] Vital Signs Date Time Vital Sign Value Performing Clinician Facility 09-07-2023 10:12-0400 Body height 157.5 cm Mikey Ware MD Work Phone: [facility] 09-07-2023 10:12-0400 Body mass index (BMI) [Ratio] 27.25 kg/m2 Mikey Ware MD Work Phone: [facility] 09-07-2023 10:12-0400 Body weight 67.59 kg Mikey Ware MD Work Phone: [facility] 09-07-2023 10:12-0400 Diastolic blood pressure 72 mm[Hg] Mikey Ware MD Work Phone: [facility] 09-07-2023 10:12-0400 Heart rate 69 /min Mikey Ware MD Work Phone: [facility] 09-07-2023 10:12-0400 Systolic blood pressure 118 mm[Hg] Mikey Ware MD Work Phone: [facility] 08-19-2023 17:01-0400 Diastolic blood pressure 74 mm[Hg] Renetta Aichholz Work Phone: [facility] 08-19-2023 17:01-0400 Heart rate 92 /min Renetta Aichholz Work Phone: [facility] 08-19-2023 17:01-0400 Respiratory rate 18 /min Renetta Aichholz Work Phone: [facility] 08-19-2023 17:01-0400 SaO2% (BldA) [Mass fraction] 94 % Renetta Aichholz Work Phone: [facility] 08-19-2023 17:01-0400 Systolic blood pressure 118 mm[Hg] Renetta Aichholz Work Phone: [facility] 08-19-2023 12:21-0400 Body height 157.48 cm Renetta Aichholz Work Phone: [facility] 08-19-2023 12:21-0400 Body temperature 98.3 [degF] Renetta Aichholz Work Phone: [facility] 08-19-2023 12:21-0400 Body weight 67.4 kg Renetta Aichholz Work Phone: [facility] 06-20-2023 13:15-0500 Body height 154.9 cm Renetta Aichholz MACHINE MAINTENANCE SERVICER Work Phone: [facility] 06-20-2023 13:15-0500 Body mass index (BMI) [Ratio] 27.21 kg/m2 Renetta Aichholz MACHINE MAINTENANCE SERVICER Work Phone: [facility] 06-20-2023 13:15-0500 Body temperature 97.3 [degF] Renetta Ridley MACHINE MAINTENANCE SERVICER Work Phone: [facility] 06-20-2023 13:15-0500 Body weight 65.32 kg Renetta Villagomezz MACHINE MAINTENANCE SERVICER Work Phone: [facility] 06-20-2023 13:15-0500 Diastolic blood pressure 98 mm[Hg] Renettamike Bellamyholz MACHINE MAINTENANCE SERVICER Work Phone: [facility] 06-20-2023 13:15-0500 Heart rate 65 /min Renettamike Villagomezz MACHINE MAINTENANCE SERVICER Work Phone: [facility] 06-20-2023 13:15-0500 Respiratory rate 18 /min Renetta Villagomezz MACHINE MAINTENANCE SERVICER Work Phone: [facility] 06-20-2023 13:15-0500 SaO2% (BldA) [Mass fraction] 98 % Renetta Villagomezz MACHINE MAINTENANCE SERVICER Work Phone: [facility] 06-20-2023 13:15-0500 Systolic blood pressure 144 mm[Hg] Renetta Villagomezz MACHINE MAINTENANCE SERVICER Work Phone: [facility] 09-01-2022 11:50-0400 Diastolic blood pressure 82 mm[Hg] Christavinasher Vincent DO Work Phone: [facility] 09-01-2022 11:50-0400 Heart rate 73 /min Christopher Vincent DO Work Phone: [facility] 09-01-2022 11:50-0400 Systolic blood pressure 114 mm[Hg] Christopher Vincent DO Work Phone: [facility] 07-19-2022 14:00-0400 Diastolic blood pressure 86 mm[Hg] Yanelis French PT, DPT Work Phone: [facility] 07-19-2022 14:00-0400 Heart rate 75 /min Yanelis French PT, DPT Work Phone: [facility] 07-19-2022 14:00-0400 Systolic blood pressure 115 mm[Hg] Yanelis French PT, DPT Work Phone: [facility] 07-12-2022 10:27-0500 Body temperature 98.71 [degF] Fabien Gonzalez PA-C Work Phone: [facility] 07-12-2022 10:27-0500 Diastolic blood pressure 88 mm[Hg] Fabien Gonzalez PA-C Work Phone: [facility] 07-12-2022 10:27-0500 Heart rate 95 /min Fabien BRIONES-C Work Phone: [facility] 07-12-2022 10:27-0500 Systolic blood pressure 119 mm[Hg] Fabien BRIONES-C Work Phone: [facility] 06-28-2022 13:00-0500 Body height 157.48 cm Timmy Chavez Other [employer] Other 06-28-2022 13:00-0500 Body mass index (BMI) [Ratio] 25.24 kg/m2 Timmy Chavez Other [employer] Other 06-28-2022 13:00-0500 Body weight 62.6 kg Timmy Chavez Other [employer] Other 06-28-2022 13:00-0500 Diastolic blood pressure 79 mm[Hg] Timmy Chavez Other [employer] Other 06-28-2022 13:00-0500 Respiratory rate 16 /min Timmy Chavze Other [employer] Other 06-28-2022 13:00-0500 Systolic blood pressure 120 mm[Hg] Timmy Chavez Other [employer] Other 06-25-2022 17:15-0500 Diastolic blood pressure 97 mm[Hg] Renetta Aichholz Work Phone: [facility] 06-25-2022 17:15-0500 Heart rate 109 /min Renetta Aichholz Work Phone: [facility] 06-25-2022 17:15-0500 Respiratory rate 20 /min Renetta Aichholz Work Phone: [facility] 06-25-2022 17:15-0500 SaO2% (BldA) [Mass fraction] 98 % Renetta Aichholz Work Phone: [facility] 06-25-2022 17:15-0500 Systolic blood pressure 153 mm[Hg] Renetta Aichholz Work Phone: [facility] 06-25-2022 13:16-0500 Body height 157.48 cm Renetta Aichholz Work Phone: [facility] 06-25-2022 13:16-0500 Body temperature 99 [degF] Renetta Aichholz Work Phone: [facility] 06-25-2022 13:16-0500 Body weight 63.04 kg Renetta Aichholz Work Phone: [facility] 06-22-2022 15:13-0500 Body height 157 cm Floorworker Work Phone: [facility] 06-22-2022 15:13-0500 Body weight 65 kg Floorworker Work Phone: [facility] 06-22-2022 15:13-0500 Diastolic blood pressure 77 mm[Hg] Floorworker Work Phone: [facility] 06-22-2022 15:13-0500 Heart rate 73 /min Floorworker Work Phone: [facility] 06-22-2022 15:13-0500 Systolic blood pressure 110 mm[Hg] Floorworker Work Phone: [facility] 06-22-2022 14:26-0500 Body height 157.5 cm Ting Camilo MD Work Phone: [facility] 06-22-2022 14:26-0500 Body temperature 97.81 [degF] Ting Camilo MD Work Phone: [facility] 06-22-2022 14:26-0500 Body weight 65.36 kg Ting Camilo MD Work Phone: [facility] 06-22-2022 14:26-0500 Diastolic blood pressure 77 mm[Hg] Ting Camilo MD Work Phone: [facility] 06-22-2022 14:26-0500 Heart rate 73 /min Ting Camilo MD Work Phone: [facility] 06-22-2022 14:26-0500 Systolic blood pressure 110 mm[Hg] Ting Camilo MD Work Phone: [facility] 05-12-2022 01:00-0500 Diastolic blood pressure 85 mm[Hg] Renetta Aichholz Work Phone: [facility] 05-12-2022 01:00-0500 Heart rate 69 /min Renetta Aichholz Work Phone: [facility] 05-12-2022 01:00-0500 Respiratory rate 18 /min Renetta Aichholz Work Phone: [facility] 05-12-2022 01:00-0500 SaO2% (BldA) [Mass fraction] 98 % Renetta Aichholz Work Phone: [facility] 05-12-2022 01:00-0500 Systolic blood pressure 192 mm[Hg] Renetta Aichholz Work Phone: [facility] 05-11-2022 21:32-0500 Body height 157.48 cm Renetta Aichholz Work Phone: [facility] 05-11-2022 21:32-0500 Body weight 65.5 kg Renetta Aichholz Work Phone: [facility] 05-11-2022 21:31-0500 Body temperature 98.1 [degF] Renetta Ridley Work Phone: [facility] 03-23-2022 13:51-0500 Body height 157.5 cm Ting Camilo MD Work Phone: [facility] 03-23-2022 13:51-0500 Body temperature 97.9 [degF] Ting Camilo MD Work Phone: [facility] 03-23-2022 13:51-0500 Body weight 68.04 kg Ting Camilo MD Work Phone: [facility] 03-23-2022 13:51-0500 Diastolic blood pressure 89 mm[Hg] Ting Camilo MD Work Phone: [facility] 03-23-2022 13:51-0500 Heart rate 87 /min Ting Camilo MD Work Phone: [facility] 03-23-2022 13:51-0500 Systolic blood pressure 124 mm[Hg] Ting Camilo MD Work Phone: [facility] 01-05-2022 11:52-0400 Body height 157.5 cm Brad Bone Jr., MD Work Phone: [facility] 01-05-2022 11:52-0400 Body weight 70.76 kg Brad Bone Jr., MD Work Phone: [facility] 09-20-2021 14:51-0400 Body height 157.5 cm Ting Camilo MD Work Phone: [facility] 09-20-2021 14:51-0400 Body temperature 97.7 [degF] Ting Camilo MD Work Phone: [facility] 09-20-2021 14:51-0400 Body weight 77.07 kg Ting Camilo MD Work Phone: [facility] 09-20-2021 14:51-0400 Diastolic blood pressure 85 mm[Hg] Ting Camilo MD Work Phone: [facility] 09-20-2021 14:51-0400 Heart rate 90 /min Ting Camilo MD Work Phone: [facility] 09-20-2021 14:51-0400 Systolic blood pressure 129 mm[Hg] Ting Camilo MD Work Phone: [facility] 09-09-2021 13:23-0400 Body height 157.5 cm Vik Sutherland MD Work Phone: [facility] 09-09-2021 13:23-0400 Body weight 74.84 kg Vik Sutherland MD Work Phone: [facility] 09-09-2021 13:23-0400 Diastolic blood pressure 70 mm[Hg] Vik Sutherland MD Work Phone: [facility] 09-09-2021 13:23-0400 Heart rate 96 /min Vik Sutherland MD Work Phone: [facility] 09-09-2021 13:23-0400 Systolic blood pressure 102 mm[Hg] Vik Sutherland MD Work Phone: [facility] 08-10-2021 13:53-0400 Body weight 74.39 kg Mikey Palomo MD Work Phone: [facility] 08-10-2021 13:53-0400 Diastolic blood pressure 82 mm[Hg] Mikey Palomo MD Work Phone: [facility] 08-10-2021 13:53-0400 Systolic blood pressure 155 mm[Hg] Mikey Palomo MD Work Phone: [facility] Encounters Encounter Date Encounter Type Care Provider Facility Start: 01-23-2024 End: 01-23-2024 ambulatory RENETTA KHAI Not Available Start: 09-07-2023 End: 09-07-2023 ambulatory MIKEY WARE [facility] Ambulatory Start: 09-07-2023 End: 09-07-2023 Office outpatient new 45 minutes Mikey Ware MD Work Phone: [facility] Comment on above: Peripheral vascular disease, unspecified (CMS-HCC) (Primary Dx) Start: 08-28-2023 End: 08-28-2023 ambulatory RENETTA AICHHOLZ Not Available Start: 08-19-2023 End: 08-19-2023 Emergency department patient visit Jose Sofia Facility:[facility] Start: 08-19-2023 End: 08-19-2023 Emergency department patient visit Renetta Ridley Work Phone: [facility] Work Phone: Start: 07-23-2023 End: 07-23-2023 ambulatory RENETTA BELLAMYHOLZ Not Available Start: 06-20-2023 Bamboo flowsheet Renetta Ridley MACHINE MAINTENANCE SERVICER Work Phone: [facility] Start: 06-20-2023 Bamboo flowsheet Renetta Ridley MACHINE MAINTENANCE SERVICER Work Phone: [facility] Start: 06-20-2023 Clinisync Result Encounter Renetta Ridley MACHINE MAINTENANCE SERVICER Work Phone: [facility] Unsolicited Start: 06-20-2023 End: 06-20-2023 Office outpatient visit 25 minutes Renetta Ridley MACHINE MAINTENANCE SERVICER Work Phone: [facility] Comment on [...] Start: 09-01-2022 End: 09-01-2022 ambulatory KARTHIK ZARATE Facility:[facility] Start: 09-01-2022 End: 09-01-2022 Patient encounter procedure Karthik Zarate DO Work Phone: Neurology Comment on above: Dizziness (Primary D x); Arachnoid cyst Start: 08-07-2022 Orders Only Ting Camilo MD Work Phone: [facility] Start: 07-27-2022 End: 07-27-2022 ambulatory Isha Smith PT Work Phone: Physical Therapy Comment on above: Dizziness (Primary D x); Cervicalgia; Balance problem Start: 07-26-2022 End: 07-26-2022 [facility] Start: 07-26-2022 End: 07-26-2022 Patient encounter procedure Carmenmike Lombardi AUD Work Phone: Audiology Comment on above: Lightheadedness (Mariann rohit Dx) Start: 07-24-2022 Refill Ting Camilo MD Work Phone: [facility] Start: 07-21-2022 End: 07-21-2022 ambulatory TING CAMILO Facility:[facility] Start: 07-19-2022 End: 07-19-2022 ambulatory Valentina Johnson, CCC-A Work Phone: Audiology Comment on above: Hearing Aids Dizziness (Primary D x); Lightheadedness Start: 07-19-2022 E-mail encounter fro m caregiver Valentina Johnson, CCC-A Work Phone: [facility] Start: 07-13-2022 End: 07-14-2022 ambulatory QUINTEN RENETTA [...] 07-11-2022 End: 07-11-2022 ambulatory Timmy Chavez Other [employer] Other Start: 07-11-2022 Telephone encounter Timmy [facility] Start: 07-04-2022 Orders Only Ting Camilo MD Work Phone: [facility] Comment on above: Essential hypertensi on (Primary Dx) Results Start: 06-29-2022 End: 06-29-2022 ambulatory Robert Gramajo MD Work Phone: [facility] Start: 06-29-2022 Patient encounter procedure Robert Gramajo MD Work Phone: [facility] Start: 06-29-2022 Telephone encounter Timmy Walter [facility] Start: 06-28-2022 End: 06-28-2022 ambulatory Timmy Chavez Other [employer] Other Start: 06-28-2022 Patient encounter procedure Timmy BOJORQUEZ Gastroenterology Start: 06-27-2022 Orders Only Ting Camilo MD Work Phone: [facility] Comment on above: Abnormal EKG (Primar y Dx) Start: 06-25-2022 End: 06-25-2022 Emergency department patient visit Renetta Bellamytodddagoberto Work Phone: [facility] Work Phone: Start: 06-22-2022 End: 06-22-2022 Patient encounter procedure Ting Camilo MD Work Phone: [facility] Comment on above: Essential hypertensi on (Primary Dx); Renal artery stenosis (HCC); Tachycardia Hypotension, unspeci fied hypotension type (Primary Dx) Start: 06-22-2022 End: 06-23-2022 ambulatory Ting Camilo MD Work Phone: [facility] Start: 06-14-2022 Orders Only Ting Camilo MD Work Phone: [facility] Comment on above: Essential hypertensi on (Primary Dx); Hypotension, unspecified hypotension type Start: 06-01-2022 End: 06-02-2022 ambulatory RENETTA RIDLEY Facility:[facility] Start: 05-30-2022 End: 05-31-2022 Orders Only Ting Camilo MD Work Phone: [facility] Comment on above: Essential hypertensi on (Primary Dx) Start: 05-18-2022 End: 05-19-2022 [facility] Start: 05-15-2022 Orders Only Ting Camilo MD Work Phone: [facility] Comment on above: Essential hypertensi on (Primary Dx) Start: 05-12-2022 Orders Only Ting Camilo MD Work Phone: [facility] Start: 05-11-2022 End: 05-12-2022 Emergency department patient visit Renetta Ridley Work Phone: [facility] Work Phone: Start: 05-09-2022 Orders Only Ting Camilo MD Work Phone: [facility] Comment on above: Essential hypertensi on (Primary Dx) Start: 05-04-2022 End: 05-04-2022 ambulatory [facility] Start: 05-03-2022 End: 05-03-2022 ambulatory [facility] Start: 03-23-2022 End: 03-24-2022 Orders Only [...] 01-05-2022 End: 01-05-2022 ambulatory RENETTA HAWTHORNE REJISethTODDDagoberto Facility:[facility] Start: 01-05-2022 End: 01-05-2022 Patient encounter procedure Brad Bone MD Work Phone: General Surgery Comment on above: Nausea and vomiting, unspecified vomiting type (Primary Dx); Bloating; Other constipation Start: 12-28-2021 Telephone encounter Meliza Dobbins RN Work Phone: General Surgery Comment on above: [facility] Start: 12-16-2021 End: 12-17-2021 [...] Start: 2021 End: 2021 ambulatory MIKEY PALOMO Facility:[facility] Start: 2021 End: 2021 [facility] Mikey Palomo MD Work Phone: Pain Management Comment on above: Neuralgia and neurit is (Primary Dx); CAD, multiple vessel; RAJESH (generalized anxiety disorder) Start: 09-22-2021 End: 09-23-2021 ambulatory QUINTEN ESCOBAR REJISethCELSO Facility:[facility] Start: 09-20-2021 End: 09-21-2021 ambulatory TING CAMILO Facility:[facility] Start: 09-20-2021 End: 09-20-2021 Patient encounter procedure Ting Camilo MD Work Phone: Kidney Medicine [facility] Comment on above: Renal artery stenosi s (HCC) (Primary Dx); Essential hypertension Start: 09-09-2021 End: 09-09-2021 ambulatory VIK SUTHERLAND Facility:[facility] Start: 09-09-2021 End: 09-09-2021 Patient encounter procedure Vik Sutherland MD Work Phone: Cardiology Comment on above: Essential hypertensi on (Primary Dx); Dizziness; Dyspnea on exertion; PVD (peripheral vascular disease) (HCC) Start: 08-29-2021 End: 08-30-2021 ambulatory VFX ARTIST RENETTA RIDLEY Facility:[facility] Start: 08-16-2021 End: 08-16-2021 ambulatory VFX ARTIST RENETTA [facility] Facility:[facility] Start: 08-12-2021 End: 08-12-2021 Subsequent hospital visit by physician Bone D[facility] Work Phone: [facility] Radiology Bone Density Comment on above: [...] hospital visit by physician [facility] Work Phone: Radiology Comment on above: Renovascular hyperte nsion [I15.0] Start: 01-07-2020 End: 01-07-2020 Subsequent hospital visit by physician [facility] Work Phone: Radiology Comment on above: 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] Procedures Date Procedure Procedure Detail Performing Clinician Start: 08-19-2023 Computed tomography of abdomen and pelvis with contrast Renetta Bellamycelso Work Phone: Start: 06-20-2023 TB MICROALB CREAT R ATIO RANDOM Renetta Bellamycelso MACHINE MAINTENANCE SERVICER Work Phone: Start: 07-13-2022 Mammography Renetta Josesitoseth jenny MACHINE MAINTENANCE SERVICER Work Phone: Start: 06-25-2022 Computed tomography of [...] Work Phone: Start: 08-12-2021 Dxa bone density hkris dy 1/> sites axial skel Mikey Palomo MD Work Phone: Start: 06-10-2021 Adult depression screening assessment Mikey Palomo MD Work Phone: Start: 05-02-[address] attenuation whole body Tiara Navas MD Work Phone: Start: 04-28-2021 Ct angiography abdom en w/contrast/noncontrast Ting Camilo MD Work Phone: Start: 04-06-2020 Colonoscopy Renetta alvarado MACHINE MAINTENANCE SERVICER Work Phone: Start: 01-07-2020 Ct angiography head w/contrast/noncontrast Elliott Salazar MD Work Phone: Start: 01-07-2020 Ct angiography neck w/contrast/noncontrast Elliott Salazar MD Work Phone: Plan of Treatment Date Care Activity Detail Author Start: 04-06-2030 Screening for malignant neoplasm of colon [facility] Start: 03-16-2026 LIPID SCREEN LIPID SCREEN [facility] Start: 09-06-2024 End: 09-06-2025 Vascular US Ankle Brachial Index ([place]) Without Exercise Vascular US Ankle Brachial Index ([place]) Without Exercise Vascular Ultrasound Routine Peripheral vascular disease, unspecified ([facility]) Expected: 09/06/2024 (Approximate), Expires: 09/06/2025 [facility] Work Phone: Comment on above: Expected: 09/06/2024 (Approximate), Expi res: 09/06/2025 Start: 03-16-2024 DIABETES SCREEN DIABETES SCREEN [facility] Start: 01-06-2024 Influenza vaccination Influenza Vaccine (Season Ended) [facility] Start: 09-07-2023 End: 09-06-2025 US.doppler Carotid arteries - bilateral Vascular US carotid artery duplex bilateral Vascular Ultrasound Routine Peripheral vascular disease, unspecified ([facility]) Expected: 09/07/2023 (Approximate), Expires: 09/06/2025 [facility] Work Phone: Comment on above: Expected: 09/07/2023 (Approximate), Expi res: 09/06/2025 Start: 09-07-2023 End: 09-06-2025 Vascular US upper PVR Vascular US upper PVR Vascular Ultrasound Routine Peripheral vascular disease, unspecified ([facility]) Expected: 09/07/2023 (Approximate), Expires: 09/06/2025 [facility] Service Area Work Phone: Comment on above: Expected: 09/07/2023 (Approximate), Expi res: 09/06/2025 Start: 07-23-2023 End: 07-23-2023 Patient encounter procedure 07/23/2023 1:00 PM EDT Office Visit SHERRELL SHAFFER [address] [place] [address] Renetta Ridley NP [address] [place] [address] [facility] Start: 07-19-2023 End: 08-18-2024 MG Breast - bilateral Screening Bilateral screening mammogram Imaging Routine Encounter for screening mammogram for malignant neoplasm of breast Expected: 07/19/2023 (Approximate), Expires: 08/18/2024 [facility] Work Phone: Comment on above: Expected: 07/19/2023 (Approximate), Expi res: 08/18/2024 Start: 07-14-2023 Screening for malignant neoplasm of breast Mammogram [facility] Start: 06-22-2023 BP CONTROLLED (<130/80) BP CONTROLLED (<130/80) [facility] Start: 06-20-2023 End: 06-20-2024 25-hydroxyvitamin D3 [Mass/volume] in Serum or Plasma Vitamin D 25 hydroxy Lab Routine Vitamin D insufficiency Expected: 06/20/2023 (Approximate), Expires: 06/20/2024 [facility] Comment on above: Expected: 06/20/2023 (Approximate), Expi res: 06/20/2024 Start: 06-20-2023 End: 06-20-2024 CBC W Auto Differential panel - Blood CBC and differential Lab Routine Gastroesophageal reflux disease with esophagitis, unspecified whether hemorrhage Expected: 06/20/2023 (Approximate), Expires: 06/20/2024 [facility] Comment on above: Expected: 06/20/2023 (Approximate), Expi res: 06/20/2024 Start: 06-20-2023 End: 06-20-2024 Comprehensive metabolic 2000 panel - Serum or Plasma Comprehensive metabolic panel Lab Routine Hyperlipemia, mixed (CMS/HCC) Vitamin D insufficiency Hypothyroidism, adult (CMS/HCC) Gastroesophageal reflux disease with esophagitis, unspecified whether hemorrhage Hypertension, essential (CMS/HCC) PVD (peripheral vascular disease) (CMS/HCC) Expected: 06/20/2023 (Approximate), Expires: 06/20/2024 [facility] Comment on above: Expected: 06/20/2023 (Approximate), Expi res: 06/20/2024 Start: 06-20-2023 End: 06-20-2024 Lipid 1996 panel - Serum or Plasma Lipid panel Lab Routine Hyperlipemia, mixed (CMS/HCC) Expected: 06/20/2023 (Approximate), Expires: 06/20/2024 [facility] Comment on above: Expected: 06/20/2023 (Approximate), Expi res: 06/20/2024 Start: 06-20-2023 End: 06-20-2024 Microalbumin/Creatinine panel in random Urine Microalbumin / creatinine, urine ratio Lab Routine Hypertension, essential ([facility]/HCC) Expected: 06/20/2023 (Approximate), Expires: 06/20/2024 [facility] Comment on above: Expected: 06/20/2023 (Approximate), Expi res: 06/20/2024 Start: 06-20-2023 End: 06-20-2024 Thyrotropin [Units/volume] in Serum or Plasma TSH Lab Routine Hypothyroidism, adult ([facility]) Expected: 06/20/2023 (Approximate), Expires: 06/20/2024 [facility] Comment on above: Expected: 06/20/2023 (Approximate), Expi res: 06/20/2024 Start: 06-20-2023 End: 06-20-2024 Thyroxine (T4) free [Mass/volume] in Serum or Plasma T4, free Lab Routine Hypothyroidism, adult ([facility]) Expected: 06/20/2023 (Approximate), Expires: 06/20/2024 [facility] Comment on above: Expected: 06/20/2023 (Approximate), Expi res: 06/20/2024 Start: 06-20-2023 End: 06-20-2024 Urinalysis complete panel - Urine Urinalysis with reflex microscopic (clean catch) Lab Routine Hypertension, essential ([facility]) Expected: 06/20/2023 (Approximate), Expires: 06/20/2024 [facility] Comment on above: Expected: 06/20/2023 (Approximate), Expi res: 06/20/2024 Start: 06-20-2023 End: 06-20-2023 Patient encounter procedure 06/20/2023 1:20 PM EST Office Visit [facility] [address] [place] [address] Renetta Ridley NP [address] [place] [address] Encounter for screening mammogram for malignant neoplasm [...] Vaccine ( season) COVID-19 Vaccine ( season) [facility] Start: 01-05-2023 Influenza vaccination [facility] Start: 2022 SHINGRIX VACCINE (1 of 2) SHINGRIX VACCINE (1 of 2) [facility] Start: 2022 Zoster Vaccines (1 of 2) Zoster Vaccines (1 of 2) [facility] Start: 09-09-2022 BP CONTROLLED (<130/80) BP CONTROLLED (<130/80) [facility] Start: 09-04-2022 End: 04-22-2023 US KIDNEY/BLADDER US KIDNEY/BLADDER Radiology Routine Kidney cyst, acquired Expected: 09/04/2022, Expires: 04/22/2023 [facility] Work Phone: Comment on above: Expected: 09/04/2022, Expires: Start: 06-10-2022 Adult depression screening assessment DEPRESSION SCREENING [facility] Start: 05-15-2022 End: 07-15-2022 Aldosterone [Mass/volume] in Serum or Plasma ALDOSTERONE BLD Lab Routine Essential hypertension Expected: 05/15/2022, Expires: 07/15/2022 [facility] Work Phone: Comment on above: Expected: 05/15/2022, Expires: 3 Start: 05-15-2022 End: 07-15-2022 Catecholamines 3 panel [Mass/volume] - Plasma CATECHOLAMINES FRA Lab Routine Essential hypertension Expected: 05/15/2022, Expires: 07/15/2022 [facility] Work Phone: Comment on above: Expected: 05/15/2022, Expires: 3 Start: 05-15-2022 End: 07-15-2022 DIRECT RENIN PLASMA DIRECT RENIN PLASMA Lab Routine Essential hypertension Expected: 05/15/2022, Expires: 07/15/2022 [facility] Work Phone: Comment on above: Expected: 05/15/2022, Expires: 3 Start: 05-15-2022 End: 07-15-2022 METANEPHRINES, FREE PLASMA METANEPHRINES, FREE PLASMA Lab Routine Essential hypertension Expected: 05/15/2022, Expires: 07/15/2022 [facility] Work Phone: Comment on above: Expected: 05/15/2022, Expires: 3 Start: 05-15-2022 End: 07-15-2022 Renal function 2000 panel - Serum or Plasma RENAL FUNCTION PANEL Lab Routine Essential hypertension Expected: 05/15/2022, Expires: 07/15/2022 [facility] Work Phone: Comment on above: Expected: 05/15/2022, Expires: 3 Start: 05-07-2022 DEPRESSION ASSESSMENT DEPRESSION ASSESSMENT [facility] Start: 03-16-2022 Hepatitis B surface antibody level LDL CHOLESTEROL [facility] Start: 01-05-2022 Influenza vaccination [facility] Start: 09-09-2021 End: 09-09-2022 ECG COMPLETE ECG COMPLETE ECG Routine Essential hypertension Dizziness Dyspnea on exertion PVD (peripheral vascular disease) (HCC) Expected: 09/09/2021, Expires: 09/09/2022 [facility] Work Phone: Comment on above: Expected: 09/09/2021, Expires: 3 Start: 05-07-2021 DEPRESSION ASSESSMENT DEPRESSION ASSESSMENT [facility] Start: 2017 COLOGUARD (FIT-DNA) COLOGUARD (FIT-DNA) [facility] Start: 2017 Colonoscopy COLONOSCOPY [facility] Start: 2017 COLORECTAL CANCER SCREENING COLORECTAL CANCER SCREENING [facility] Start: [address] COLONOGRAPHY [facility] Start: 2017 FECAL OCCULT BLOOD FECAL OCCULT BLOOD [facility] Start: 2017 SIGMOIDOSCOPY SIGMOIDOSCOPY [facility] Start: 2012 Mammography MAMMOGRAM [facility] Start: 2012 Screening for malignant neoplasm of breast Mammogram [facility] Start: 2002 HPV TESTING HPV TESTING [facility] Start: 12-26-1997 DTaP/Tdap/Td Vaccines (1 - Tdap) DTaP/Tdap/Td Vaccines (1 - Tdap) [facility] Start: 1993 PAP TESTING PAP TESTING [facility] Start: 1993 Screening for malignant neoplasm of cervix [facility] Start: 10-19-1991 Urine microalbumin profile DTAP,TDAP,TD (1 - Tdap) [facility] Start: 1990 ANNUAL PCP TEAM CHRONIC DISEASE VISIT ANNUAL PCP TEAM CHRONIC DISEASE VISIT [facility] Start: 1990 BP CONTROLLED (<130/80) BP CONTROLLED (<130/80) [facility] Start: 1990 Diabetes mellitus screening Diabetes Screening [facility] Start: 1990 Hepatitis C screening Hepatitis C Screening [facility] Start: 1977 COVID-19 VACCINE (#1) COVID-19 VACCINE (#1) [facility] Start: 1977 COVID-19 VACCINE (1) COVID-19 VACCINE (1) [facility] Start: 04-19-1973 COVID-19 VACCINE (#1) COVID-19 VACCINE (#1) [facility] Start: 1972 HEPATITIS B (1 of 3 - 3-dose series) HEPATITIS B (1 of 3 - 3-dose series) [facility] Start: 1972 HIV screening HIV Screening [facility] Start: 1972 Lipid panel Lipid Panel [facility] Start: 1972 Screening for malignant neoplasm of colon [facility] Start: 1972 Yearly Adult Physical Yearly Adult Physical [facility] Ambulatory bp mntr w /sw 24 hr+ rec scan nicholas i&r AMBULATORY BP MONITORING Cardiology Routine Hypotension, unspecified hypotension type Ordered: 06/14/2022 [facility] Work Phone: Comment on above: Ordered: 06/14/2022 CATECHOLAMINES FRACTIONATED, URINE FREE CATECHOLAMINES FRACTIONATED, URINE FREE Lab Routine Essential hypertension Ordered: 05/30/2022 [facility] Work Phone: Comment on above: Ordered: 05/30/2022 CREATININE 24 HR UR CREATININE 2 4 HR UR Lab Routine Essential hypertension Ordered: 05/30/2022 [facility] Work Phone: Comment on above: Ordered: 05/30/2022 End: 09-09-2022 Dxa bone density study 1/> sites axial skel DXA-AXIAL [facility]KE[facility] Radiology Routine Atherosclerosis Bilateral carotid artery stenosis Hiatal hernia Renal artery stenosis (HCC) RAJESH (generalized anxiety disorder) CAD, multiple vessel Neuralgia and neuritis 1 Occurrences starting 08/10/2021 until 09/09/2022 [facility] Work Phone: Comment on above: 1 Occurrences starting 08/10/2021 until 09/09/2022 ECG COMPLETE ECG COMPLETE ECG Routine Tachycardia 06/22/2022 4:26 PM EST [facility] Work Phone: End: 06-27-2023 Echocardiography ECHO Cardiology Routine Abnormal EKG 1 Occurrences starting 06/27/2022 until 06/27/2023 [facility] Work Phone: Comment on above: 1 Occurrences starting 06/27/2022 until 06/27/2023 METANEPHRINES 24H UR METANEPHRIN ES 24H UR Lab Routine Essential hypertension Ordered: 05/30/2022 [facility] Work Phone: Comment on above: Ordered: 05/30/2022 Patient Education [facility] Work Phone: Patient referral [facility] Work Phone: PT PLAN OF CARE CERTIFICATION PT PLAN OF CARE CERTIFICATION Procedures Routine Dizziness Lightheadedness Ordered: 07/19/2022 [facility] Work Phone: Comment on above: Ordered: 07/19/2022 End: 03-23-2023 PVR LEG [facility]TA [facility] PVR LEG [facility] Vascular Lab Routine Peripheral arterial disease (HCC) 1 Occurrences starting 03/23/2022 until 03/23/2023 [facility] Work Phone: Comment on above: 1 Occurrences starting 03/23/2022 until 03/23/2023 URINALYSIS, REFLEX MICROSCOPIC URINALYSIS, REFLEX MICROSCOPIC Lab Routine Screening for genitourinary condition Ordered: 03/23/2022 [facility] Work Phone: Comment on above: Ordered: 03/23/2022 End: 03-22-2023 US ABD AORTA COMPLETE [facility] US ABD AORTA COMPLETE [facility] Vascular Lab Routine PVD (peripheral vascular disease) (HCC) Renal artery stenosis ([facility]) Atherosclerosis 1 Occurrences starting 03/22/2022 until 03/22/2023 [facility] Work Phone: Comment on above: 1 Occurrences starting 03/22/2022 until 03/22/2023 End: 03-23-2023 US ABD AORTA COMPLETE [facility] US ABD AORTA COMPLETE [facility]AS [facility] Vascular Lab Routine Abdominal aortic aneurysm (AAA) without rupture, unspecified part NANCY (renal artery stenosis) ([facility]) Carotid stenosis, asymptomatic, bilateral 1 Occurrences starting 03/23/2022 until 03/23/2023 [facility] Work Phone: Comment on above: 1 Occurrences starting 03/23/2022 until 03/23/2023 End: 03-22-2023 US CAROTID ARTERIES [facility] US CAROTID ARTERIES [facility] Vascular Lab Routine Bilateral carotid artery stenosis 1 Occurrences starting 03/22/2022 until 03/22/2023 [facility] Work Phone: Comment on above: 1 Occurrences starting 03/22/2022 until 03/22/2023 End: 03-23-2023 US CAROTID ARTERIES [facility] US CAROTID ARTERIES [facility] Vascular Lab Routine Carotid stenosis, asymptomatic, bilateral 1 Occurrences starting 03/23/2022 until 03/23/2023 [facility] Work Phone: Comment on above: 1 Occurrences starting 03/23/2022 until 03/23/2023 End: 03-22-2023 US RENAL ARTERY [facility] US RENAL ARTERY [facility] Vascular Lab Routine Renal artery stenosis (HCC) 1 Occurrences starting 03/22/2022 until 03/22/2023 [facility] Work Phone: Comment on above: 1 Occurrences starting 03/22/2022 until 03/22/2023 End: 03-23-2023 US RENAL ARTERY [facility] US RENAL ARTERY [facility] Vascular Lab Routine NANCY (renal artery stenosis) (HCC) 1 Occurrences starting 03/23/2022 until 03/23/2023 [facility] Work Phone: Comment on above: 1 Occurrences starting 03/23/2022 until 03/23/2023 [facility] Immunizations Immunization Date Immunization Notes Care Provider Nadir [facility] 03-05-2009 novel [id number], preservative-free, injectable Renetta Aichholz MACHINE MAINTENANCE SERVICER Work Phone: [facility] 03-05-2009 influenza virus vaccine, unspecified formulation Mikey Ware MD Work Phone: [facility] Work Phone: 07-09-1998 hepatitis B vaccine, adult dosage Renetta Aichholz MACHINE MAINTENANCE SERVICER Work Phone: [facility] 02-01-1998 hepatitis B vaccine, adult dosage Renetta Aichholz MACHINE MAINTENANCE SERVICER Work Phone: [facility] 01-01-1998 measles, mumps and rubella virus vaccine Renetta Aichholz MACHINE MAINTENANCE SERVICER Work Phone: [facility] 12-28-1997 hepatitis B vaccine, adult dosage Renetta Aichholz MACHINE MAINTENANCE SERVICER Work Phone: [facility] 12-25-1997 TD(adult) unspecifie d formulation Renetta Bellamycelso MACHINE MAINTENANCE SERVICER Work Phone: [facility] Payers Date Payer Category Payer Self-pay [id number] 2022 Medicare MEDICARE MEDICAR E A [id number] 2022-Present [phone] [address] [place] [address] Medicare [id number] 2020 Unknown ANTHEM BLUE CARD PPO OOS [id number] 2020-Present [phone] [address] [place] [address] PPO [id number] 2019 Unknown [id number] 1972 Unknown [id number] [id number] 1972 Unknown [id number] [id number] 1972 Unknown [id number] [id number] 1972 Unknown [id number] 2.16.840.1.197102.3.579.2.593 1972 Unknown [id number] 2.16.840.1.664906.3.579.2.593 1972 Unknown [id number] 2.16.840.1.782128.3.579.2.593 1972 Unknown [id number] 2.16.840.1.260408.3.579.2.593 1972 Unknown [id number] 2.16.840.1.170635.3.579.2.593 1972 Unknown [id number] 2.16.840.1.607516.3.579.2.593 1972 Unknown [id number] [id number] 1972 Unknown [id number] 2.16.840.1.905959.3.579.2.593 1972 Unknown [id number] 2.16.840.1.838939.3.579.2.1244 1972 Unknown [id number] 2.16.840.1.391173.3.579.2.1259 1972 Unknown [id number] 2.16.840.1.989213.3.579.2.1259 1972 Unknown [id number] 2.16.840.1.018061.3.579.2.1259 1972 Unknown [id number] 2.16.840.1.901504.3.579.2.1259 1959 Unknown [id number] Medicare Medicare- Part A Only [id number] Unknown [facility] [id number] Unknown [id number] Social History Date Type Detail Facility Start: 04-21-2019 End: 08-19-2023 Tobacco smoking status NHIS Ex-smoker [facility] End: 12-22-2018 History of tobacco use Current smoker [facility] Start: 04-21-2019 End: 06-20-2023 Cigarettes smoked current (pack per day) - Reported 0.5 [facility] Start: 04-21-2019 End: 09-07-2023 Tobacco use and exposure Smokeless tobacco non-user [facility] Start: 08-10-2021 End: 06-20-2023 Alcohol intake Ex-drinker (finding) [facility] Start: 1970 Sex Assigned At Female [facility] Start: 12-07-2019 End: 09-07-2023 Exposure to SARS-CoV-2 (event) Not sure [facility] End: 12-22-2018 History of tobacco use Cigarette Smoker [facility] Start: 04-07-2021 End: 06-20-2023 Sex Assigned At [facility] Adult Depression Screening Assessment 5 [facility] Start: 03-13-2021 Gender identity Identifies as female gender (finding) [facility] Start: 03-13-2021 Sexual orientation Heterosexual (fin ding) [facility] Start: 12-04-2019 Alcohol intake Current drinke r of alcohol (finding) [facility] [facility] Tobacco smoking status AZIS Tobacco smoking consumption unknown [facility] Start: 1970 Sex Assigned At Not on file [facility] Start: 06-20-2023 End: 09-07-2023 Tobacco smoking status AZIS Never smoked tobacco [facility] Start: 06-20-2023 Alcohol Comment caffine: once weekly [facility] NEGATED: Highlighted row [facility] NEGATED: Highlighted rowStart: SEANF History of tobacco use Passive smoker [facility] Work Phone: Medical Equipment Procedure Code Equipment Code Equipment Origin al Text Equipment Identifier Dates Multiple periphe ral artery stent, [id number] biliary stent ()[id number] FDA Start: 03-04-2019 Bare-metal carot id artery stent ()[id number] FDA Start: 03-04-2019 Clinical Notes 01-07-2020 to [...] She has not had a stroke or OR. She said she had convulsions after her [...] Use: Not At Risk (07/16/2023) Received from [facility] AUDIT-C Frequency of Alcohol Consumption: Never Average Number of Drinks: Patient does not drink Frequency of Binge Drinking: Never Financial Resource Strain: Low Risk (07/16/2023) Received from [facility] Overall Financial Resource Strain (CARDIA) Difficulty of Paying Living Expenses: Not very hard Food Insecurity: No Food Insecurity (07/16/2023) Received from [facility] Hunger Vital Sign Worried About Running Out of Food in the Last Year: Never true Ran Out of Food in the Last Year: Never true Transportation Needs: No Transportation Needs (07/16/2023) Received from [facility] PRAPARE - Transportation Lack of Transportation (Medical): No Lack of Transportation (Non-Medical): No Physical Activity: Not on file Stress: Stress Concern Present (07/16/2023) Received from [facility] [place] [facility] - Occupational Stress Questionnaire Feeling of Stress : Very much Social Connections: Socially Isolated (07/16/2023) Received from [facility] Social Connection and Isolation Panel [NHANES] Frequency of Communication with Friends and Family: Once a week Frequency of Social Gatherings with Friends and Family: Once a week Attends Bahai Services: Never Active Member of Clubs or Organizations: No Attends Club or Organization Meetings: Never Marital Status: Intimate Partner Violence: Not on file Depression: Not at risk (08/28/2023) Received from [facility] PHQ-2 Patient Health Questionnaire-2 Score: 2 Housing Stability: Low Risk (07/16/2023) Received from [facility] Housing Stability Vital Sign Unable to Pay [...] Mikey Ware M.D. documented in this encounter [facility] Work Phone: 06-20-2023 History of [...] panel Vitamin D 25 hydroxy Hypothyroidism, adult ([facility]/HCC) Relevant Orders Comprehensive metabolic panel TSH T4, free Hyperlipemia, mixed ([facility]) Relevant Orders Comprehensive metabolic panel Lipid panel Generalized anxiety disorder with panic attacks ([facility]) Will refer to new psychiatrist 1 month only of xanax to take prn anxiety Whatever psych provider orders for treatment is what pt will need to use, I will not continue xanax OARRS reviewed Relevant Medications ALPRAZolam (Xanax) 0.5 MG tablet Other Relevant Orders Ambulatory referral to Behavioral Health PVD (peripheral vascular disease) ([facility]) Hx of this, no statin Will recheck lipids Relevant Orders Comprehensive metabolic panel Encounter for screening mammogram for malignant neoplasm of breast - Primary Relevant Orders Bilateral screening mammogram BMI 27.0-27.9,adult documented in this encounter [facility] 12-15-2022 Evaluation note Diagnosis Renovascular hypertension Secondary renovascular hypertension, unspecified Chronic renal failure, stage 3a (HCC) documented in this encounter [facility]04-28-2023 NoteHNO ID: [id number] Author: Karthik Zarate, DO Service: ? Author Type: Physician Type: Progress Notes Filed: 09/02/2022 12:40 PM Note Text: [facility] [place] New Patient Consultation to this clinic, previously [...] 7.50 Types: Cigarettes Quit date: 12/22/2018 Years [facility] (more content not included)...[facility]04-28-2023 History of Present illness Narrative* Karthik Zarate, DO - 09/01/2022 11:50 AM EDT [facility] [place] New Patient Consultation to this clinic, previously [...] in the posterior fossa, best seen on sagittal/lavatory attendant images. MRI Report - Impression Only MRI BRAIN W IVCON (CALL BACK) Exam End: 02/03/2020 4:24 PM (Final result) Impression: IMPRESSION: No acute findings or abnormal intracranial enhancement, specifically no evidence of an acute infarct. No perfusion abnormality. Rn Endoscopy: PSCB Transcribe Date/Time: Feb 03 2020 4:25P [...] 4. Discussed and reviewed brain images from 5511-2259 (what was available) and note no changes [...] Sincerely, Karthik Zarate D.O. documented in this encounterLake[facility]03-[facility]-2023 NoteHNO ID: [id number] Author: Isha Ashwin PT Service: ? Author [...] Planned: 3 Planned Treatment Interventions: Therapeutic exercise (27171), Neuromuscular re-education (67181), Manual therapy (27917), Therapeutic activities (67082), Self-longterm management (27038), Patient/Family/Caregiver Education, Canalith Repositioning Maneuvers (06855) PLAN FOR NEXT VISIT: Assess response to [...] exercise technique and purpose for exercises. Patient Self-Chcf Management: 1: Vestibular Battery results education Skilled [...] Treatment Minutes: 45 (more content not included)... [facility]03-23-2023 History of Present illness Narrative* Isha Smith, PT - 07/27/2022 1:03 PM EDT Episode Visit Count: 2 Therapist That Will Accept/Oversee The Plan Of Care: Isha Smith Start of Care Date: 07/19/22 Plan of Care Certification Date: 07/19/22 Next Certification Due Date: 10/17/22 Patient Identified by Name and Date of : Yes RE[facility]AB[facility] SPORTS THERAPY PHYSICAL THERAPY TREATMENT NOTE ASSESSMENT: Rgela Prajapati tolerated the session with fatigue. She [...] Planned: 3 Planned Treatment Interventions: Therapeutic exercise (50164), Neuromuscular re- education (95536), Manual therapy (82955), Therapeutic activities (84697), Self- longterm management (96179), Patient/Family/Caregiver Education, Canalith Repositioning Maneuvers (93537) PLAN FOR NEXT VISIT: Assess response to [...] exercise technique and purpose for exercises. Patient Self-Chcf Management: 1: Vestibular Battery results education Skilled [...] 53 Isha Smith PT documented in this encounterLake[facility]03-22-2023 NoteHNO ID: [id number] Author: WESTON Reza Service: ? Author Type: Scraper Operator Type: Progress Notes Filed: 07/26/2022 3:59 PM Note Text: [facility] [place] Vestibular and Balance Disorders Laboratory Vestibular Test Battery Report Name: Regla Prajapati [facility]#: [id number] Date of Service: 07/26/2022 Date of : 1970 Age: [age] year old Referred by: Fabien Gonzalez PA-C And is a patient of Renetta Ridley CNP, QUINTEN Referred for: Evaluation of suspected change in hearing, tinnitus, or balance. Referral documented: In an order in [facility] Pretest Instructions: The following pretest instructions were [...] Prajapati presents with chief (more content not included)...[facility]03-22-2023 Instructions* Patient Instructions* Carmen Lombardi, WESTON - 07/26/2022 2:16 PM EDT [facility] [place] Vestibular and Balance Laboratory For the body [...] you experience a fall. documented in this encounterLakehealth [facility]03-22-2023 History of Present illness Narrative* WESTON Reza - 07/26/2022 12:30 PM EDT [facility] [place] Vestibular and Balance Disorders Laboratory Vestibular Test Battery Report Name: Regla Prajapati [facility]#: [id number] Date of Service: 07/26/2022 Date of : 1970 Age: [age] year old Referred by: Fabien Gonzalez PA-C And is a patient of Renetta Ridley CNP, QUINTEN Referred for: Evaluation of suspected change in hearing, tinnitus, or balance. 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 Description of Procedure: objective assessment of peripheral [...] none. Temporal profile: n/a. Symptoms: none. Nystagmus [place]-Hallpike right ear return to sit position: none. Temporal profile: n/a. Symptoms: slight nausea. Nystagmus Jah-Hallpike left ear down position: none. Temporal profile: n/a. Symptoms: none. Nystagmus [place]-Hallpike left ear return to sit position: none. [...] Vestibular Evoked Myogenic Potentials (VEMP): CPT code: 57911 Description of Procedure: short-latency myogenic potentials produced [...] 4, or 6kHz:No Rotational Chair: CPT code 29670 Description of Procedure: objective assessment of peripheral [...] regarding this information, please contact me at [phone]. Paula Reza, CCC/A copy to: Fabien Gonzalez PA-C documented in this encounterLake[facility]03-15-2023 NoteHNO ID: [id number] Author: Yanelis French PT, DPT Service: ? [...] Planned: 8 Planned Treatment Interventions: Therapeutic exercise (22429), Neuromuscular re-education (67972), Manual therapy (64401), Therapeutic activities (93054), Self-longterm management (97190), Gait Training (85524), Aquatic PT (44408), Patient/Family/Caregiver Education, Body Mechanics Training, Functional training, General Conditioning, Canalith Repositioning Maneuvers (70822) PLAN FOR NEXT VISIT: Plan to transfer care to [facility]. Patient demonstrates good understanding of plan of care and treatment. The above goals and plan of care were discussed and agreed upon by patient/family. Transfer of Care Due To: Closer to Home Patient transferring care to: [facility] SUBJECTIVE: Regla Prajapati is a 51 [...] 07/17/2022 10/11/2021 08/03/2021 (more content not included)... [facility]03-15-2023 History of Present illness Narrative* Yanelis French, [...] Planned: 8 Planned Treatment Interventions: Therapeutic exercise (93798), Neuromuscular re- education (91187), Manual therapy (10035), Therapeutic activities (15845), Self- longterm management (66739), Gait Training (35478), Aquatic PT (31836), Patient/Family/Caregiver Education, Body Mechanics Training, Functional training, General Conditioning, Canalith Repositioning Maneuvers (89438) PLAN FOR NEXT VISIT: Plan to transfer [...] nystagmus Head Shake: Negative Positional Testing Left [place]-Hallpike: Asymptomatic, No nystagmus, Comments Left Jah-Halpike Comments: [...] Education/Teach Back: States/Identifies TREATMENT: PT Treatment Interventions: Self-Chcf Management Evaluation Self-Chcf Management: 1: *Handout given discussion common vestibular [...] Yanelis French PT, DPT documented in this encounterLake[facility]03-08-2023 NoteHNO ID: [id number] Author: Fabien Gonzalez PA-C Service: ? Author Type: Physician Research Nurse Type: Progress Notes Filed: 07/12/2022 12:48 PM Note Text: [facility] [place] [facility] NOTE CC: Regla Prajapati is a [...] bone conduction and speech recognition testing. CPT code:47269 RIGHT EAR: Hearing Sensitivity: Hearing sensitivity within [...] omeprazole (PRILOSEC) 2 (more content not included)...[facility] 07-12-2022 NoteHNO ID: [id number] Author: Weston Cotton, CCC-A Service: ? Author Type: Scraper Operator Type: Progress Notes Filed: 07/12/2022 10:25 AM Note Text: [facility] [place] AUDIOLOGIC EVALUATION REPORT Name: Regla Prajapati [facility]#: [id number] Date of Service: 07/12/2022 Date of : 1970 Age: [age] year old Referred by: Fabien Gonzalez [address] [facility] [facility] [address] Referred for: Evaluation of the cause of disorder of hearing, tinnitus, or balance. Referral documented: In an order in [facility] Patient's major complaints: Complaints of recent history [...] does notice some problem on the phone. eRgla Prajapati was seen for an initial audiologic [...] evaluation of middle ear function. CPT code: 81764 RIGHT EAR: Normal ME pressure and TM compliance (mobility). LEFT EAR: Normal ME pressure and TM compliance (mobility). ACOUSTIC REFLEXES Description of procedure: This test is an objective measure of auditory and facial nerve pathways. CPT code: 07014, 74572 RIGHT EAR PROBE EAR: (ipsi right stimulus [...] bone conduction and speech recognition testing. CPT code:22596 RIGHT EAR: Hearing Sensitivity: Hearing sensitivity within [...] to proceed with obtaining hearing aids through [facility] Audiology Section. 3. Annual recheck. 4. Hearing conservation. 5. The patient was counseled and given written information regarding effective communication strategies to enhance communication ability. 6. The patient was counseled and given written educational information re: the relationship between hearing loss and tinnitus, as well as, other common causes of tinnitus and options for tinnitus management. Beni Cotton, GRAYSON/A Clinical Scraper Operator GROVES Abbrev- iation Definition Degree of hearing sensitivity dB range WNL within normal limits WNL 0 - 20 SNHL sensorineural hearing loss Mild 20-40 CHL conductive hearing loss Moderate 40-55 MHL mixed hearing loss Moderately-Severe 55-70 WRS word recognition score Severe 70-90 ME middle ear Profound (more content not included)...[facility] 07-12-2022 Instructions* Patient Instructions* Fabien Gonzalez PA-C - 07/12/2022 10:59 AM EST Call [phone] to schedule an appointment to assess your need for hearing aids. Request a Hearing Aid Evaluation (HAE) appointment. documented in this encounterLakehealth [facility]03-08-2023 History of Present illness Narrative* Fabien Gonzalez PA-C - 07/12/2022 10:32 AM EST Images from the original note were not included. [facility] [place] [facility] NOTE CC: Regla Prajapati is a [...] and boneconduction and speech recognition testing. CPT code:22409 RIGHT EAR: Hearing Sensitivity: Hearing sensitivity within [...] rendered reconstructions of the carotid arteries and torres martinez of [place] were reviewed. Stenosis is evaluated [...] Level: 4 - Moderate documented in this encounterLakehealth [facility]03-08-2023 History of Present illness Narrative* Weston Cotton, CCC-A - 07/12/2022 10:14 AM EST [facility] [place] AUDIOLOGIC EVALUATION REPORT Name: Regla Prajapati CC#: [id number] Date of Service: 07/12/2022 Date of : 1970 Age: [age] year old Referred by: Fabien Gonzalez [address] [facility] [address] Referred for: Evaluation of the cause of disorder of hearing, tinnitus, or balance. Referral documented: In an order in [facility] Patient's major complaints: Complaints of recent history [...] evaluation of middle ear function. CPT code: 87973 RIGHT EAR: Normal ME pressure and TM compliance (mobility). LEFT EAR: Normal ME pressure and TM compliance (mobility). ACOUSTIC REFLEXES Description of procedure: This test is an objective measure of auditory and facial nerve pathways. CPT code: 19645, 42164 RIGHT EAR PROBE EAR: (ipsi right stimulus [...] and boneconduction and speech recognition testing. CPT code:50842 RIGHT EAR: Hearing Sensitivity: Hearing sensitivity within [...] to proceed with obtaining hearing aids through [facility] Audiology [facility]. 3. Annual recheck. 4. Hearing conservation. 5. The patient was counseled and given written information regarding effective communication strategies to enhance communication ability. 6. The patient was counseled and given written educational information re: the relationship betweenhearing loss and tinnitus, as well as, other common causes of tinnitus and options for tinnitus management. Beni Cotton, CCC/A Clinical Scraper Operator GROVES Abbrev- iation Definition Degree of hearing sensitivity dB range WNL within normal limits WNL 0 - 20 SNHL sensorineural hearing loss Mild 20-40 CHL conductive hearing loss Moderate 40-55 MHL mixed hearing loss Moderately-Severe 55-70 WRS word recognition score Severe 70-90 ME middle ear Profound 90 + TM tympanic membrane documented in this encounterLakehealth [facility]03-07-2023 Evaluation note* Encounter Date Diagnosis Assessment Notes Treatment Notes Treatment Clinical Notes Jul, Constipation (ICD-10 - K59.00) [employer] Other 02-28-2023 Miscellaneous Notes* Telephone Encounter - [...] will send back BP's next week. Ting aCmilo MD documented in this encounterLakehealth [facility] Center02-23-2023 NoteHNO ID: [id number] Author: Robert Gramajo MD Service: ? Author [...] Pressure in Adults: A Report of the [place] [employer]/[place] [employer] Task Force on Clinical Practice Guidelines. Hypertension. 2018 Oct;71(6):z97-c668. Epub 2016Mar 19. 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 Other episodes at 12.20 pm (closest BP/ HR 117/70 and 73 bpm at 12.19 pm) and 3.30 pm (closest BP/ HR 118/74 and 71 bpm at 3.30 pm) A copy of this report will be sent to referring physician via EMR. A copy of the full report with raw data and all individual readings will be scanned into [employer], which can be reviewed under scanned documents. Robert Gramajo [facility]02-23-2023 History of Present illness Narrative* Robert Gramajo [...] Pressure in Adults: A Report of the [place] [employer]/[place] [employer] Task Force on Clinical Practice Guidelines. Hypertension. 2018 Oct;71(6):u19-h276. Epub 2016Mar 19. 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 Other episodes at 12.20 pm (closest BP/ HR 117/70 and 73 bpm at 12.19 pm) and3.30 pm (closest BP/ HR 118/74 and 71 bpm at 3.30 pm) A copy of this report will be sent to referring physician via EMR. A copy of the full report with raw data and all individual readings will be scanned into [employer], which can be reviewed under scanned documents. Robert Gramajo MD documented in this encounterLakehealth [facility] Center02-23-2023 Evaluation note* Encounter Date Diagnosis Assessment Notes Treatment Notes Treatment Clinical Notes Jun, Gastritis (ICD-10 - K29.70) [employer] Other 02-22-2023 Evaluation note* Encounter Date Diagnosis Assessment Notes Treatment Notes Treatment Clinical Notes Jun, Constipation (ICD-10 - K59.00) Stop Trulance Start Amitiza 24mcg bid Follow up in 3-4 months Jun, Nausea (ICD-10 - R11.0) Jun, Gastritis (ICD-10 - K29.70) Increase Pantoprazole to 40mg bid. [employer] Other 02-16-2023 NoteHNO ID: [id number] Author: Carmen Obrien MA Service: ? Author Type: Floorworker Type: Progress Notes Filed: 06/22/2022 3:32 PM Note Text: AMBULATORY BLOOD PRESSURE MONITOR Performed automated office BP reading and results downloaded into [employer] Average BP: 110/77 AOBP - Standardized BP [...] patient to return monitor by mail via [employer] no later than: 06/23/2022. Serial number: [id number] [employer] Tracking number [id number] Did the patient receive a blood pressure cuff? Yes Did the patient receive a blood pressure monitor? Yes Did the patient receive a belt? Yes Patient expressed understanding of all above. Patient signed financial release form and aware that they will be billed if the monitor is not returned by the specified date. All questions answered Carmen Obrien [facility]02-16-2023 NoteHNO ID: [id number] Author: Ting Camilo MD Service: ? Author [...] Labs reviewed CKD LAB (more content not included)...[facility]02-16-2023 Instructions* Patient Instructions* Carmen Obrien MA - 06/22/2022 3:29 PM EST AMBULATORY BLOOD PRESSURE MONITOR Performed automated office BP reading and results downloaded into [employer] Average BP: 110/77 AOBP - Standardized BP [...] patient to return monitor by mail via [employer] no later than: 06/23/2022. Serial number: [id number] [employer] Tracking number [id number] Did the patient receive a blood pressure cuff? Yes Did the patient receive a blood pressure monitor? Yes Did the patient receive a belt? Yes Patient expressed understanding of all above. Patient signed financial release form and aware that they will be billed if the monitor is not returned by the specified date. All questions answered Carmen Obrien MA documented in this encounterLakehealth [facility]02-16-2023 Instructions* Patient Instructions* Ting Camilo MD - 06/22/2022 3:21 PM EST 24hr BP cuff Decrease nighttime lisinopril to 5mg Get EKG Let me know how BP's and your dizziness are doing in a few weeks Return 3 months documented in this encounterLakehealth [facility] Center02-16-2023 History of Present illness Narrative* Carmen Obrien MA - 06/22/2022 3:16 PM EST AMBULATORY BLOOD PRESSURE MONITOR Performed automated office BP reading and results downloaded into [employer] Average BP: 110/77 AOBP - Standardized BP [...] patient to return monitor by mail via [employer] no later than: 06/23/2022. Serial number: [id number] [employer] Tracking number [id number] Did the patient receive a blood pressure cuff? Yes Did the patient receive a blood pressure monitor? Yes Did the patient receive a belt? Yes Patient expressed understanding of all above. Patient signed financial release form and aware that they will be billed if the monitor is not returned by the specified date. All questions answered Carmen Obrien MA documented in this encounterLakehealth [facility]02-16-2023 History of Present illness Narrative* [...] months Ting Camilo MD documented in this encounterLakehealth [facility]point [facility] Center02-16-2023 NotePatient Outreach (MIRTA) REGLA PRAJAPATI ([id number]) 1970 F Date Time Provider Department 06/22/22 TING CAMILO During your visit today, we recorded the following information about you: Allergies As of Date: 06/22/2022 Noted Allergy Reaction AMLODIPINE 05/08/2019 7 - Swelling Comments: BLE swelling PENICILLINS 04/24/2002 Date Reviewed: 06/22/2022 Reviewed by: Yen Beth MA - Fully Assessed Visit Diagnosis:Screening for genitourinary condition [Z13.89] Order(s):URINALYSIS, REFLEX MICROSCOPIC [[id number]] Order #: [id number]. #:[id number] Prescriptions as of 06/26/2022 - terbinafine HCl [...] 04/06/2020 Hemorrhoids [K64.9] 04/06/2020 Encounter Status:Closed by [employer], PRODUSER on 06/26/22[facility] 05-04-2022 NoteHNO ID: [id number] Author: Fermin Begum MD Service: ? Author Type: Physician Type: Progress Notes Filed: 05/04/2022 12:21 PM Note Text: [facility] [place] DEPARTMENT OF VASCULAR SURGERY OUTPATIENT VISIT DATE May 04, 2022 OUTPATIENT VISIT TYPE ESTABLISHED SERVICE DATE: 05/04/2022 SERVICE TIME: 11:54 AM PRIMARY CARE PHYSICIAN: Renetta Ridley, VFX ARTIST, VFX ARTIST HISTORY OF PRESENT ILLNESS: Ms. Prajapati is [...] valvular abnormalities 03/04/2019 patient had procedure at [facility] in [place] for critical right common iliac artery stenosis [...] fingers pink, well perfused. 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 Her lisinopril was increased to 10mg a [...] or rubs. 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 Her lisinopril was increased to 10mg a [...] BP's are doing in 2 weeks on Nulogyt message Follow up with Dr. Anderson as planned Return 3 months kidney US in 6 months Ting Camilo MD documented in this encounterLake[facility]11-17-2022 NotePatient Outreach (MIRTA) REGLA PRAJAPATI ([id number]) 1970 F Date Time Provider Department 03/23/22 TING CAMILO During your visit today, we recorded the following information about you: Allergies As of Date: 03/23/2022 Noted Allergy Reaction AMLODIPINE 05/08/2019 7 - Swelling Comments: BLE swelling PENICILLINS 04/24/2002 Date Reviewed: 03/23/2022 Reviewed by: Yen Beth MA - Fully Assessed Visit Diagnosis:Screening for genitourinary condition [Z13.89] Order(s):URINALYSIS, REFLEX MICROSCOPIC [DEB6226] Order #: [id number] Prescriptions as of 03/27/2022 - lisinopril (ZESTRIL, [...] 04/06/2020 Hemorrhoids [K64.9] 04/06/2020 Encounter Status:Closed by [employer], PRODUSER on 03/27/22[facility] 01-05-2022 NoteHNO ID: [id number] Author: Brad Bone Jr., MD Service: ? Author Type: Physician Type: Progress Notes Filed: 01/05/2022 1:31 PM Note Text: CONSULTATION Requesting provider: Renetta Ridley, VFX ARTIST ([facility]) [address] [place] [address] Alo is here today for my opinion [...] having consiptation. Last endoscopic W/U was in [place] about 3 years ago. Initial work up performed at OSH ([place], [place]): US - normal GB, wall = [...] cc: Referring provider Renetta Ridley CNP ([facility]) [address] [place] [address]vdiqfwviOhio[facility]09[facility] History of Present illness Narrative* Brad Bone Jr., MD - 01/05/2022 11:47 AM EDT CONSULTATION Requesting provider: Renetta Ridley CNP (DrC) [address] [place] [address] Alo is here today for my opinion [...] having consiptation. Last endoscopic W/U was in [place] about 3 years ago. Initial work up performed at [place]SH ([place], [place]): US - normal GB, wall = 1.6mm, [...] Bone MD cc: Referring provider Renetta Ridley, VFX ARTIST ([facility]) [address] [facility] [address] documented in this encounterLake[facility]08-24-2022 Miscellaneous Notes* Telephone Encounter - [...] 1145 and patient accepted documented in this encounterLake[facility]06-14-2022 NoteHNO ID: [id number] Author: Mikey Palomo MD Service: ? Author Type: Physician Type: Progress Notes Filed: 10/28/2021 5:43 PM Note Text: TELEMEDICINE VISIT Modified Protocol for treatment of other conditions supportive of goal to minimize vulnerable patient exposure to Covid-19 [facility] Emergency Consented for encounter Patient verified by name and Regla Prajapati [id number] 1970 SUBJECTIVE: The [facility] for pain [...] diffuse pain episode of renal insuffic at [facility]? we dont have those records to review [...] which included preparing to see the patient, [id number] patient care, completing clinical documentation, obtaining and/or [...] above. Mikey Palomo MD October 18[facility] History of Present illness Narrative* Mikey Palomo MD - 2021 5:02 PM EDT TELEMEDICINE VISIT Modified Protocol for treatment of other conditions supportive of goal to minimize vulnerable patient exposure to Covid-19 [facility] Emergency Consented for encounter Patient verified by name and Regla Prajapati [id number] 1970 SUBJECTIVE: The [facility] for pain [...] which included preparing to see the patient, qlux-xz-hnck patient care, completing clinical documentation, obtaining and/or [...] Mikey Palomo MD 2021 documented in this encounterLakehealth [facility]05-17-2022 NoteHNO ID: [id number] Author: Ting Camilo MD Service: ? Author [...] [place] Ye (more content not included)...[facility] 09-20-2021 Instructions* Patient Instructions* Ting Camilo MD - 09/20/2021 3:25 PM EDT No changes in meds I will review your case with some colleagues to make sure we don't think something else is going on Return 6 months documented in this encounterLakehealth [facility]05-17-2022 History of Present illness Narrative* [...] Negative Negative Ketones, Urine Negative Negative Specific Plover, Ur 1.005 - 1.030 1.009 Hemoglobin/Blood,Ur Negative [...] months Ting Camilo MD documented in this encounterLakehealth [facility]05-17-2022 NotePatient Outreach (MIRTA) ALOREGLA ([id number]) 1970 F Date Time Provider Department 09/20/21 TING CAMILO During your visit today, we recorded the following information about you: Allergies As of Date: 09/20/2021 Noted Allergy Reaction AMLODIPINE 05/08/2019 7 - Swelling Comments: BLE swelling PENICILLINS 04/24/2002 Date Reviewed: 09/20/2021 Reviewed by: Ting Camilo MD - Fully Assessed Visit Diagnosis:Screening for genitourinary condition [Z13.89] Order(s):URINALYSIS, REFLEX MICROSCOPIC [ZKA8888] Order #: [id number]. #:[id number] Prescriptions as of 09/23/2021 - tiZANidine HCl [...] 04/06/2020 Hemorrhoids [K64.9] 04/06/2020 Encounter Status:Closed by [employer], PRODUSER on 09/23/21[facility] 09-09-2021 NoteHNO ID: [id number] Author: Vik Sutherland MD Service: ? Author [...] PAST MEDICAL HISTORY D (more content not included)...[facility]05-06-2022 History of Present illness Narrative* Vik Sutherland [...] and right common iliac artery stents. She gzx81-23% right and 0-59% left renal artery stenosis. [...] Yoder. The patient underwent recent evaluation, at [facility] in [place], for dizzy spells/syncope. BP: 102/70 WA: 96 Wt: 165 lbs Clinical cardiac examination [...] Dyspnea on exertion Pvd (peripheral vascular disease) ([facility]) Vik Sutherland MD documented in this encounterLake[facility]04-08-2022 NoteHNO ID: [id number] Author: RT Leda(R) Service: ? Author Type: [...] BY: RT Leda(R) August 12, 2021 11:38 AMTimpanogos [facility] [id number] History of Present illness Narrative* RT Leda(R) [...] 12, 2021 11:38 AM documented in this encounterLakehealth [facility]04-06-2022 Instructions* Patient Instructions* Mikey Palomo [...] your usual activities immediately. documented in this encounterLakehealth [facility]04-06-2022 History of Present illness Narrative* Mikey Palomo MD - 08/10/2021 1:40 PM EDT History and Physical Assessment Patient Name: Regla Prajapati MR #: [id number] Age: [age] year old Date: August 10, [...] Normal/Negative. Skin: Normal/Negative. Heart/Lungs: Normal/Negative. GI: Normal/Negative. /CORPORATE TRAINER: Normal/Negative. Heme: Normal/Negative. Endo: Normal/Negative. Neuro: Normal/Negative. [...] 53 yrs. other (healthy) Sister 26 yrs. [address] Allergies: ALLERGIES Allergen Reactions Amlodipine Swelling BLE [...] [place] Patient feels safe at home: Yes [place] Loose End Finder: Emily Sykes MA Imaging Studies: none Is [...] capsule Refill: 2 Track physical activity consider [facility] chronic pain recovery program Return to clinic (in-person office visit or virtual visit/telemedicine) after all above completed fully. I spent a total of 60minutes on the date of the service which included: *preparing to see the patient *kypd-ev-sptu patient care *completing clinical documentation *obtaining and/or [...] MD August 10, 2021 documented in this encounterLake[facility]12-27-2021 History of Present illness Narrative* [...] DIAGNOSTIC CT PERFORMED: No IV SITE: Ambulatory: NC only - direct IV injection in the Right hand POST EXAM PIV STATUS: Not applicable PROCEDURE TYPE: NC INJECT: PET/CT WHOLE BODY SCAN. 9.9 mCi [...] 7:52 AM PAGER/CONTACT #: documented in this encounterLakehealth [facility] Center12-23-2021 History of Present illness Narrative* [...] 2021 TIME: 12:58 PM documented in this encounterLakehealth [facility]09-22-2020 History of Past illness Narrative* Problem Noted Date Resolved Date Hyperventilation 01/27/2020 04/14/2021 TIA (transient ischemic attack) 01/26/2020 01/27/2020 documented as of this encounter (statuses as of 08/11/2021) [facility] of [facility] Narrative* Problem Noted Date Resolved Date Hyperventilation 01/27/2020 04/14/2021 TIA (transient ischemic attack) 01/26/2020 01/27/2020 documented as of this encounter (statuses as of 08/13/2021) [facility] Narrative* Problem Noted Date Resolved Date Hyperventilation 01/27/2020 04/14/2021 TIA (transient ischemic attack) 01/26/2020 01/27/2020 documented as of this encounter (statuses as of 09/09/2021) [facility] Narrative* Problem Noted Date Resolved Date Hyperventilation 01/27/2020 04/14/2021 TIA (transient ischemic attack) 01/26/2020 01/27/2020 documented as of this encounter (statuses as of 09/20/2021) [facility] Narrative* Problem Noted Date Resolved Date Hyperventilation 01/27/2020 04/14/2021 TIA (transient ischemic attack) 01/26/2020 01/27/2020 documented as of this encounter (statuses as of 10/19/2021) [facility] Narrative* Problem Noted Date Resolved Date Hyperventilation 01/27/2020 04/14/2021 TIA (transient ischemic attack) 01/26/2020 01/27/2020 documented as of this encounter (statuses as of 10/27/2021) [address]22-2020 History of Past illness Narrative* Problem Noted Date Resolved Date Hyperventilation 01/27/2020 04/14/2021 TIA (transient ischemic attack) 01/26/2020 01/27/2020 documented as of this encounter (statuses as of 10/28/2021) [address]-2020 History of Past illness Narrative* Problem Noted Date Resolved Date Hyperventilation 01/27/2020 04/14/2021 TIA (transient ischemic attack) 01/26/2020 01/27/2020 documented as of this encounter (statuses as of 12/28/2021) [facility] Narrative* Problem Noted Date Resolved Date Hyperventilation 01/27/2020 04/14/2021 TIA (transient ischemic attack) 01/26/2020 01/27/2020 documented as of this encounter (statuses as of 01/05/2022) [facility] Narrative* Problem Noted Date Resolved Date Hyperventilation 01/27/2020 04/14/2021 TIA (transient ischemic attack) 01/26/2020 01/27/2020 documented as of this encounter (statuses as of 03/22/2022) [address]22-2020 History of Past illness Narrative* Problem Noted Date Resolved Date Hyperventilation 01/27/2020 04/14/2021 TIA (transient ischemic attack) 01/26/2020 01/27/2020 documented as of this encounter (statuses as of 03/23/2022) [facility] Narrative* Problem Noted Date Resolved Date Hyperventilation 01/27/2020 04/14/2021 TIA (transient ischemic attack) 01/26/2020 01/27/2020 documented as of this encounter (statuses as of 03/23/2022) [facility] Narrative* Problem Noted Date Resolved Date Hyperventilation 01/27/2020 04/14/2021 TIA (transient ischemic attack) 01/26/2020 01/27/2020 documented as of this encounter (statuses as of 03/23/2022) [address]-2020 History of Past illness Narrative* Problem Noted Date Resolved Date Hyperventilation 01/27/2020 04/14/2021 TIA (transient ischemic attack) 01/26/2020 01/27/2020 documented as of this encounter (statuses as of 03/27/2022) [address]-2020 History of Past illness Narrative* Problem Noted Date Resolved Date Hyperventilation 01/27/2020 04/14/2021 TIA (transient ischemic attack) 01/26/2020 01/27/2020 documented as of this encounter (statuses as of 05/11/2022) [facility]* Problem Noted Date Resolved Date Hyperventilation 01/27/2020 04/14/2021 TIA (transient ischemic attack) 01/26/2020 01/27/2020 documented as of this encounter (statuses as of 05/13/2022) [facility]* Problem Noted Date Resolved Date Hyperventilation 01/27/2020 04/14/2021 TIA (transient ischemic attack) 01/26/2020 01/27/2020 documented as of this encounter (statuses as of 05/15/2022) [facility]* Problem Noted Date Resolved Date Hyperventilation 01/27/2020 04/14/2021 TIA (transient ischemic attack) 01/26/2020 01/27/2020 documented as of this encounter (statuses as of 05/30/2022) [address]-2020 History of Past illness Narrative* Problem Noted Date Resolved Date Hyperventilation 01/27/2020 04/14/2021 TIA (transient ischemic attack) 01/26/2020 01/27/2020 documented as of this encounter (statuses as of 06/14/2022) [facility]* Problem Noted Date Resolved Date Hyperventilation 01/27/2020 04/14/2021 TIA (transient ischemic attack) 01/26/2020 01/27/2020 documented as of this encounter (statuses as of 06/22/2022) [facility]arrative* Problem Noted Date Resolved Date Hyperventilation 01/27/2020 04/14/2021 TIA (transient ischemic attack) 01/26/2020 01/27/2020 documented as of this encounter (statuses as of 06/22/2022) [address]-2020 History of Past illness Narrative* Problem Noted Date Resolved Date Hyperventilation 01/27/2020 04/14/2021 TIA (transient ischemic attack) 01/26/2020 01/27/2020 documented as of this encounter (statuses as of 06/26/2022) [address]22-2020 History of Past illness Narrative* Problem Noted Date Resolved Date Hyperventilation 01/27/2020 04/14/2021 TIA (transient ischemic attack) 01/26/2020 01/27/2020 documented as of this encounter (statuses as of 06/27/2022) [address]-2020 History of Past illness Narrative* Problem Noted Date Resolved Date Hyperventilation 01/27/2020 04/14/2021 TIA (transient ischemic attack) 01/26/2020 01/27/2020 documented as of this encounter (statuses as of 06/29/2022) [address]22-2020 History of Past illness Narrative* Problem Noted Date Resolved Date Hyperventilation 01/27/2020 04/14/2021 TIA (transient ischemic attack) 01/26/2020 01/27/2020 documented as of this encounter (statuses as of 07/04/2022) [address]-2020 History of Past illness Narrative* Problem Noted Date Resolved Date Hyperventilation 01/27/2020 04/14/2021 TIA (transient ischemic attack) 01/26/2020 01/27/2020 documented as of this encounter (statuses as of 07/04/2022) [address]-2020 History of Past illness Narrative* Problem Noted Date Resolved Date Hyperventilation 01/27/2020 04/14/2021 TIA (transient ischemic attack) 01/26/2020 01/27/2020 documented as of this encounter (statuses as of 07/12/2022) [address]-2020 History of Past illness Narrative* Problem Noted Date Resolved Date Hyperventilation 01/27/2020 04/14/2021 TIA (transient ischemic attack) 01/26/2020 01/27/2020 documented as of this encounter (statuses as of 07/12/2022) [address]-2020 History of Past illness Narrative* Problem Noted Date Resolved Date Hyperventilation 01/27/2020 04/14/2021 TIA (transient ischemic attack) 01/26/2020 01/27/2020 documented as of this encounter (statuses as of 07/13/2022) [address]-2020 History of Past illness Narrative* Problem Noted Date Resolved Date Hyperventilation 01/27/2020 04/14/2021 TIA (transient ischemic attack) 01/26/2020 01/27/2020 documented as of this encounter (statuses as of 07/19/2022) [facility]* Problem Noted Date Resolved Date Hyperventilation 01/27/2020 04/14/2021 TIA (transient ischemic attack) 01/26/2020 01/27/2020 documented as of this encounter (statuses as of 07/20/2022) [facility]* Problem Noted Date Resolved Date Hyperventilation 01/27/2020 04/14/2021 TIA (transient ischemic attack) 01/26/2020 01/27/2020 documented as of this encounter (statuses as of 07/25/2022) [facility]* Problem Noted Date Resolved Date Hyperventilation 01/27/2020 04/14/2021 TIA (transient ischemic attack) 01/26/2020 01/27/2020 documented as of this encounter (statuses as of 07/26/2022) [facility]* Problem Noted Date Resolved Date Hyperventilation 01/27/2020 04/14/2021 TIA (transient ischemic attack) 01/26/2020 01/27/2020 documented as of this encounter (statuses as of 07/27/2022) [facility]* Problem Noted Date Resolved Date Hyperventilation 01/27/2020 04/14/2021 TIA (transient ischemic attack) 01/26/2020 01/27/2020 documented as of this encounter (statuses as of 08/08/2022) [facility]* Problem Noted Date Resolved Date Hyperventilation 01/27/2020 04/14/2021 TIA (transient ischemic attack) 01/26/2020 01/27/2020 documented as of this encounter (statuses as of 09/02/2022) [address]2020 History of Past illness Narrative* Problem Noted Date Diagnosed Date Resolved Date Hyperventilation 01/27/2020 04/14/2021 TIA (transient ischemic attack) 01/26/2020 01/27/2020 documented as of this encounter (statuses as of 12/15/2022) [address]2020 History of Past illness Narrative* Problem Noted Date Diagnosed Date Resolved Date Hyperventilation 01/27/2020 04/14/2021 TIA (transient ischemic attack) 01/26/2020 01/27/2020 documented as of this encounter (statuses as of 12/15/2022) [facility]* Problem Noted Date Diagnosed Date Resolved Date Hyperventilation 01/27/2020 04/14/2021 TIA (transient ischemic attack) 01/26/2020 01/27/2020 documented as of this encounter (statuses as of 12/15/2022) [facility] History of Present illness Narrative* [...] 2020 TIME: 1:47 PM [facility] [place] [facility]* Diagnosis Neuralgia and neuritis- Primary Neuralgia, [...] Coronary atherosclerosis of unspecified type of vessel, [place] or graft Encounter for screening for osteoporosis Special screening for osteoporosis Asymptomatic postmenopausal status Premature menopause documented in this encounter [facility]* Diagnosis Atherosclerosis Generalized and unspecified atherosclerosis Bilateral carotid artery stenosis Occlusion and stenosis of carotid artery without mention of cerebral infarction Hiatal hernia Diaphragmatic hernia without mention of obstruction or gangrene Renal artery stenosis (HCC) Atherosclerosis of renal artery RAJESH (generalized anxiety disorder) Generalized anxiety disorder CAD, multiple vessel Coronary atherosclerosis of unspecified type of vessel, [place] or graft Neuralgia and neuritis Neuralgia, neuritis, and radiculitis, unspecified documented in this encounter [facility] note* Diagnosis Essential hypertension- Primary Unspecified essential hypertension Dizziness Dizziness and giddiness Dyspnea on exertion Other dyspnea and respiratory abnormality PVD (peripheral vascular disease) (HCC) Peripheral vascular disease, unspecified [facility] [place] [facility] Diagnosis Renal artery stenosis (HCC)- Primary Atherosclerosis of renal artery Essential hypertension Unspecified essential hypertension documented in this encounter [facility] note* Diagnosis Neuralgia and neuritis- Primary Neuralgia, neuritis, and radiculitis, unspecified CAD, multiple vessel Coronary atherosclerosis of unspecified type of vessel, [place] or graft RAJESH (generalized anxiety disorder) Generalized anxiety disorder documented in this encounter [facility]* Diagnosis Nausea and vomiting, unspecified vomiting type- Primary Bloating Flatulence, eructation, and gas pain Other constipation documented in this encounter [facility] note* Diagnosis Bilateral carotid artery stenosis Occlusion and stenosis of carotid artery without mention of cerebral infarction PVD (peripheral vascular disease) (HCC) Peripheral vascular disease, unspecified Renal artery stenosis (HCC) Atherosclerosis of renal artery Atherosclerosis Generalized and unspecified atherosclerosis documented in this encounter [facility] note* Diagnosis Abdominal aortic aneurysm (AAA) without rupture, unspecified part- Primary NANCY (renal artery stenosis) (HCC) Atherosclerosis of renal artery Carotid stenosis, asymptomatic, bilateral documented in this encounter [facility]* Diagnosis Peripheral arterial disease (HCC)- Primary Peripheral vascular disease, unspecified documented in this encounter [facility] note* Diagnosis Renal artery stenosis (HCC)- Primary Atherosclerosis of renal artery Essential hypertension Unspecified essential hypertension Kidney cyst, acquired Acquired cyst of kidney documented in this encounter [facility]* Diagnosis Screening for genitourinary condition Screening for other and unspecified genitourinary condition documented in this encounter [facility] note* Diagnosis Essential hypertension- Primary Unspecified essential hypertension documented in this encounter [facility] note* Diagnosis Essential hypertension- Primary Unspecified essential hypertension documented in this encounter [facility] note* Diagnosis Essential hypertension- Primary Unspecified essential hypertension Hypotension, unspecified hypotension type documented in this encounter [facility]* Diagnosis Essential hypertension- Primary Unspecified essential hypertension Renal artery stenosis (HCC) Atherosclerosis of renal artery Tachycardia Tachycardia, unspecified documented in this encounter [facility] note* Diagnosis Hypotension, unspecified hypotension type- Primary documented in this encounter [facility] note* Diagnosis Screening for genitourinary condition Screening for other and unspecified genitourinary condition documented in this encounter [facility] [place] noteNo assessment information availableGenesis Hospital Work Phone: Evaluation note* Diagnosis Abnormal EKG- Primary Nonspecific abnormal electrocardiogram (ECG) (EKG) documented in this encounter [facility] note* Diagnosis Hypotension, unspecified hypotension type- Primary documented in this encounter [facility] note* Diagnosis Essential hypertension- Primary Unspecified essential hypertension documented in this encounter [facility] note* Diagnosis Essential hypertension- Primary Unspecified essential hypertension [facility] [place] [facility]* Diagnosis Tinnitus, bilateral- Primary Unspecified tinnitus Other specified hearing loss, unspecified ear Asymmetrical sensorineural hearing loss Sensorineural hearing loss, asymmetrical Dizziness Dizziness and giddiness documented in this encounter [facility] [place] [facility]* Diagnosis Asymmetrical sensorineural hearing loss- Primary Sensorineural hearing loss, asymmetrical Dizziness Dizziness and giddiness Lightheadedness Dizziness and giddiness Tinnitus, bilateral Unspecified tinnitus Arachnoid cyst Cerebral cysts documented in this encounter [facility] [place] [facility]* Diagnosis Dizziness- Primary Dizziness and giddiness Lightheadedness Dizziness and giddiness documented in this encounter [facility] [place] [facility]* Diagnosis Dizziness- Primary Dizziness and giddiness Lightheadedness Dizziness and giddiness documented in this encounter [facility] [place] [facility]* Diagnosis Lightheadedness- Primary Dizziness and giddiness documented in this encounter [facility] [place] [facility]* Diagnosis Dizziness- Primary Dizziness and giddiness Cervicalgia Balance problem Other symptoms involving nervous and musculoskeletal systems documented in this encounter [facility] [place] [facility]* Diagnosis Dizziness- Primary Dizziness and giddiness Arachnoid cyst Cerebral cysts documented in this encounter [facility] [place] [facility]* Diagnosis Arteritis, Takayasu (HCC) Takayasu's disease Arterial disease ([facility]) Unspecified disorders of arteries and arterioles Bilateral carotid artery stenosis Occlusion and stenosis of carotid artery without mention of cerebral infarction Subclavian arterial stenosis ([facility]) Stricture of artery documented in this encounter [facility] [place] [facility]* Diagnosis Nonruptured cerebral aneurysm Cerebral aneurysm, nonruptured Dizziness and giddiness Encounter for screening for cardiovascular disorders Screening for other and unspecified cardiovascular conditions documented in this encounter [facility] [place] [facility]* Diagnosis Generalized anxiety disorder with panic attacks ([facility])- Primary Encounter for screening mammogram for malignant neoplasm of breast Hyperlipemia, mixed ([facility]) Mixed hyperlipidemia Vitamin D insufficiency Hypothyroidism, adult ([facility]) Other specified acquired hypothyroidism Gastroesophageal reflux disease with esophagitis, unspecified whether hemorrhage Hypertension, essential ([facility]/HCC) Unspecified essential hypertension PVD (peripheral vascular disease) ([facility]) Unspecified peripheral vascular disease BMI 27.0-27.9,adult [facility] [place] [facility]* Diagnosis Peripheral vascular disease, unspecified ([facility])- Primary Peripheral vascular disease, unspecified documented in this encounter [facility] Work Phone: History general Narrative - Reported* Type Description Date Medical History PVD Medical History CAROTID STENOSIS Medical History ANXIETY Medical History HYPERCHOLESTEREMIA Surgical History HYSTERECTOMY Surgical History LAPROSCOPY Surgical History ANGIO & CAROTID DSA 02-28-2019 Surgical History RIGHT ILIAC & CAROTID ANGIOPLAS TY & STENTING 03-04-2019 [employer] Other Reason for referral (narrative)* Outpatient Procedure (Routine) - Closed Specialty Diagnoses / Procedures Referred By Contac t Referred To Contact [facility] Diagnoses Essential hypertension Dizziness Dyspnea on exertion PVD (peripheral vascular disease) (HCC) Procedures ECG COMPLETE ECG ROUTINE ECG W/LEAST 12 LDS W/I&[place] [address] [place] [address] [facility] [address] [address] Referral ID Status Reason Start Date Expiration Date V isits Requested Visits Authorized [id number] Closed Auto-Generate d Referral 09/09/2021 09/09/2022 1 1 [facility] for referral (narrative)* Outpatient Procedure (Routine) - Pending Review Specialty Diagnoses / Procedures Referred By Contac t Referred To Contact [facility] Diagnoses PVD (peripheral vascular disease) (HCC) Renal artery stenosis (HCC) Atherosclerosis Procedures US ABD AORTA COMPLETE VAS LAB DUP-SCAN AORTA IVC ILIAC VASCL/[place] [address] [place] [address] [facility] [address] [address] Referral ID Status Reason Start Date Expiration Date Visits Requested Visits Authorized [id number] Pending Review Auto-Generat ed Referral 2 03/22/2023 1 1 * Outpatient Procedure (Routine) - Pending Review Specialty Diagnoses / Procedures Referred By Contac t Referred To Contact [facility] Diagnoses Renal artery stenosis (HCC) Procedures US RENAL ARTERY RENETTA VAS LAB DUP-SCAN ARTL [place]AR[place] ABDL/PEL/SCROT&/[place] [address] [place] [address] [facility] [address] [address] Referral ID Status Reason Start Date Expiration Date Visits Requested Visits Authorized [id number] Pending Review Auto-Generat ed Referral 2 03/22/2023 1 1 * Outpatient Procedure (Routine) - Pending Review Specialty Diagnoses / Procedures Referred By Contac t Referred To Contact [facility] Diagnoses Bilateral carotid artery stenosis Procedures US CAROTID ARTERIES RENETTA VAS LAB DUPLEX SCAN EXTRACRANIAL [place] [address] [place] [address] [facility] [address] [address] Referral ID Status Reason Start Date Expiration Date Visits Requested Visits Authorized [id number] Pending Review Auto-Generat ed Referral 2 03/22/2023 1 1 [facility] for referral (narrative)* Outpatient Procedure (Routine) - Open Specialty Diagnoses / Procedures Referred By Contac t Referred To Contact [facility] Diagnoses Abdominal aortic aneurysm (AAA) without rupture, unspecified part NANCY (renal artery stenosis) (HCC) Carotid stenosis, asymptomatic, bilateral Procedures US ABD AORTA COMPLETE VAS LAB DUP-SCAN AORTA IVC ILIAC VASCL/[place] [address] [place] [address] [facility] [address] [address] Referral ID Status Reason Start Date Expiration Date V isits Requested Visits Authorized [id number] Open Auto-Generate d Referral 03/23/2022 03/23/2023 1 1 * Outpatient Procedure (Routine) - Open Specialty Diagnoses / Procedures Referred By Contac t Referred To Contact [facility] Diagnoses Carotid stenosis, asymptomatic, bilateral Procedures US CAROTID ARTERIES RENETTA VAS LAB DUPLEX SCAN EXTRACRANIAL [place] [address] [place] [address] [address] Referral ID Status Reason Start Date Expiration Date V isits Requested Visits Authorized [id number] Open Auto-Generate d Referral 03/23/2022 03/23/2023 1 1 * Outpatient Procedure (Routine) - Open Specialty Diagnoses / Procedures [facility] To [facility] Diagnoses NANCY (renal artery stenosis) (HCC) Procedures US RENAL ARTERY RENETTA VAS LAB DUP-SCAN ARTL [place] ABDL/PEL/SCROT&/[place] [address] [place] [address] [address] Referral ID Status Reason Start Date Expiration Date V isits Requested Visits Authorized [id number] Open Auto-Generate d Referral 03/23/2022 03/23/2023 1 1 [facility] for referral (narrative)* Outpatient Procedure (Routine) - Open Specialty Diagnoses / Procedures [facility] Referred To Contact [facility] Diagnoses Peripheral arterial disease (HCC) Procedures PVR LEG RENETTA VAS LAB NON-INVASIVE PHYSIOLOGIC STUDY EXTREMITY 3 [place] [address] [place] [address] [address] Referral ID Status Reason Start Date Expiration Date V isits Requested Visits Authorized [id number] Open Auto-Generate d Referral 03/23/2022 03/23/2023 1 1 [facility] for referral (narrative)* Diagnostic Procedure Only (Routine) - Authorized Specialty Diagnoses / Procedures Referred By Cristobal kaye Referred To Contact US IMAGING Diagnoses Kidney cyst, acquired Procedures US KIDNEY/BLADDER US RETROPERITONEAL REAL TIME W/IMAGE COMPLETE Ting Camilo MD [address] [place] [address] Us Imaging Referral ID Status Reason Start Date Expiration Date Visits Requested Visits Authorized [id number] Authorized Auto-Generat ed Referral 09/04/2022 04/22/2023 1 1 [facility] for referral (narrative)* Outpatient Procedure (Routine) - Closed Specialty Diagnoses / Procedures Referred By Cristobal kaye Referred To Contact [facility] Diagnoses Tachycardia Procedures ECG COMPLETE ECG ROUTINE ECG W/LEAST 12 LDS W/I&R Ting Camilo MD [address] [place] [address] [place] [address] Referral ID Status Reason Start Date Expiration Date V isits Requested Visits Authorized [id number] Closed Auto-Generate d Referral 06/22/2022 05/06/2023 1 1 [facility] for referral (narrative)* Outpatient Procedure (Routine) - Pending Review Specialty Diagnoses / Procedures Referred By Cristobal kaye Referred To Contact [facility] Diagnoses Abnormal EKG Procedures ECHO ECHO TTHRC R-T 2D W/WOM-MODE COMPL SPEC&COLR D Ting Camilo MD [address] [place] [address] [place] [address] Referral ID Status Reason Start Date Expiration Date Visits Requested Visits Authorized [id number] Pending Review Auto-Generat ed Referral 06/27/2022 06/27/2023 1 1 [facility] for referral (narrative)* Diagnostic Procedure Only (Urgent) - Closed Specialty Diagnoses / Procedures Referred By Contac t Referred To Contact MOLECULAR & FUNCTIONAL IMAGING Diagnoses Arteritis, Takayasu (HCC) Arterial disease (HCC) Bilateral carotid artery stenosis Subclavian arterial stenosis (HCC) Procedures NM PET/CT WHOLE BODY INITIAL TUMOR IMAG PET W/CONCURNT CT-WHOLE BODY Tiara Lynne MD [address] [place] [address] [facility] [address] [place] [address] Referral ID Status Reason Start Date Expiration Date V isits Requested Visits Authorized [id number] Closed Auto-Generate d Referral 04/22/2021 05/06/2021 2 2 [facility] for referral (narrative)* Diagnostic Procedure Only (Routine) - Closed Specialty Diagnoses / Procedures [facility] Ref[facility] To Contact CT IMAGING Diagnoses Encounter for screening for cardiovascular disorders Procedures CTA NECK W IVCON CTA NECK, W/WO C, W/3D Elliott Salazar MD [address] [place] [address] Ct Imaging Referral ID Status Reason Start Date Expiration Date V isits Requested Visits Authorized [id number] Closed Auto-Generate d Referral 01/06/2020 02/04/2020 1 1 * Diagnostic Procedure Only (Routine) - Closed Specialty Diagnoses / Procedures [facility] Referred To Contact CT IM[facility]ING Diagnoses Nonruptured cerebral aneurysm Dizziness and giddiness Procedures CTA HEAD W IVCON CTA HEAD WWO C, W/3D Elliott Salazar MD [address] [place] [address] Ct Imaging Referral ID Status Reason Start Date Expiration Date V isits Requested Visits Authorized [id number] Closed Auto-Generate d Referral 12/18/2019 01/16/2020 1 1 [facility] for referral (narrative)* Consultation (Routine) - Pending Review Specialty Diagnoses / Procedures Referred By Contac t Referred To Contact Behavioral Health Diagnoses Generalized anxiety disorder with panic attacks (CMS/HCC) Procedures WA OFFICE/OUTPATIENT NEW HIGH MDM 60 MINUTES Renetta Ridley, IBETH [address] [place] [address] Mattie Martinez, [facility] [address] [place] [address] Referral ID Status Reason Start Date Expiration Date Visits Requested Visits Authorized [id number] Pending Review Specialty Services Required 06/20/2023 12/17/2023 1 1 [facility] for referral (narrative)* Consultation (Routine) - Authorized Specialty Diagnoses / Procedures Referred By Contac t Referred To Contact Vascular Surgery Diagnoses Peripheral vascular disease, unspecified (CMS-HCC) Procedures Follow [place] [address] [place] [address] Referral ID Status Reason Start Date Expiration Date V isits Requested Visits Authorized [id number] Authorized 09/07/2023 09/06/2024 1 1 * Imaging (Routine) - Pending Review Specialty Diagnoses / Procedures Referred By Contac t Referred To Contact Cardiology Diagnoses Peripheral vascular disease, unspecified (CMS-HCC) Procedures Vascular [place] [address] [place] [address] Referral ID Status Reason Start Date Expiration Date Visits Requested Visits Authorized [id number] Pending Review Perform Procedure 09/07/2023 09/06/2024 1 1 * Imaging (Routine) - Pending Review Specialty Diagnoses / Procedures Referred By Contac t Referred To Contact Cardiology Diagnoses Peripheral vascular disease, unspecified ([facility]) Procedures Vascular US Ankle Brachial Index ([place]) [place] [address] [facility] [place] [address] Referral ID Status Reason Start Date Expiration Date Visits Requested Visits Authorized [id number] Pending Review Perform Procedure 09/07/2023 09/06/2024 1 1 * Imaging (Routine) - Pending Review Specialty Diagnoses / Procedures Referred By Contac t Referred To Contact Cardiology Diagnoses Peripheral vascular disease, unspecified ([facility]) Procedures [place] [address] [facility] Department [place] [address] Referral ID Status Reason Start Date Expiration Date Visits Requested Visits Authorized [id number] Pending Review Perform Procedure 09/07/2023 09/06/2024 1 1 [facility] Work Phone: Reason for visit Narrative* Diagnostic Procedure Only (Urgent) - Closed Specialty Diagnoses / Procedures Referred By Contac t Referred To Contact MOLECULAR & FUNCTIONAL IMAGING Diagnoses Arteritis, Takayasu (HCC) Arterial disease (HCC) Bilateral carotid artery stenosis Subclavian arterial stenosis (HCC) Procedures NM PET/CT WHOLE BODY INITIAL TUMOR IMAG PET W/CONCURNT CT-WHOLE BODY Tiara Lynne MD [address] [place] [address] Molecular & Functional Imaging [address] [id number] Referral ID Status Reason Start Date Expiration Date V isits Requested Visits Authorized [id number] Closed Auto-Generate d Referral 04/22/2021 05/06/2021 2 2 [facility] Summary Purpose Family History No [...] FoundDocuments on File Type Date Recorded Patient Glass 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 Expl 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 Advance Directive(s) 03/03/2020 10:58 AM Advance Directive(s) 02/25/2020 6:09 PM Advance Directive(s) 01/26/2020 5:47 PM Advance Directive(s) 03/28/2019 12:27 PM Documents on File Type Date Recorded Patient Glass Sander Belt Expl anation Advance Directive(s) 03/03/2020 10:58 AM Advance Directive(s) 02/25/2020 6:09 PM Advance Directive(s) 01/26/2020 5:47 PM Advance Directive(s) 03/28/2019 12:27 PM Advance Directive Response Recorded Date/ Time Advance Directives No February 27, 2019 4:45pm Advance Directive Response Recorded Date/ Time Advance Directives No February 27, 2019 5:45pm Procedure Findings Note HNO ID: [id number] Author: Reagan Catherine Service: Neurosurgery Author Type: Physician Type: Brief Op Note Filed: 03/03/2020 2:06 PM Note Text: BRIEF OP/PROCEDURE NOTE NEURO INTERVENTIONAL PROCEDURE DATE: March 03, 2020 LOG ID: [id number] Surgery/Procedure Date: 03/03/2020 Incision/Procedure Start Time: 1:23 PM Incision Close/Procedure End Time: 2:09 PM Anesthesia: Procedural Sedation PRIMARY PROCEDURALIST: Blanca Catherine M.D. KNUCKLE STRAP SEWER(S): Mau Morales MD PROCEDURE: Diagnostic CervicoCerebral Angiography Indications: Great vessel stenosis Access Site: right VASCULAR RADIOLOGIST PRE-PROCEDURE DIAGNOSIS: Great vessel stenosis POST-PROCEDURE DIAGNOSIS: [...] Other constipation Procedures CONSULT TO GASTROENTEROLOGY OFFICE/OUTPATIENT [facility] 60-74 MINUTES Brad Bone Jr., MD [address] [place] [address] [place] [address] Referral ID Status Reason Start Date Expiration Date Visits Requested Visits Authorized [id number] Authorized PCP Requested Referral 01/05/2022 01/05/2023 1 1 Specialty Diagnoses / Procedures Referred By Contac t Referred To Contact Neurology Diagnoses Dizziness Lightheadedness Arachnoid cyst Procedures CONSULT TO NEUROLOGY OFFICE/OUTPATIENT [facility] 60-74 MINUTES Fabien Gonzalez PA-C [address] [place] [address] Referral ID Status Reason Start Date Expiration Date Visits Requested Visits Authorized [id number] Authorized PCP Requested Referral 07/12/2022 07/12/2023 1 1 Specialty Diagnoses / Procedures Referred By Contac t Referred To Contact [facility] Diagnoses Dizziness Lightheadedness Procedures PT REHAB FOLLOW UP ORDER THERAPEUTIC EXERCISES RE, EA 15 MIN. Pt [facility] [address] [place] [address] [facility] [address] [address] Referral ID Status Reason Start Date Expiration Date Visits Requested Visits Authorized [id number] Pending Review PCP Requested Referral Auto-Generate d Referral 07/19/2022 10/17/2022 1 1 Specialty Diagnoses / Procedures Referred By Contac t Referred To Contact CT IMAGING Diagnoses Renovascular hypertension Chronic renal failure, stage 3a (HCC) Procedures CTA ABDOMEN W IVCON CT ANGIO,ABDOMN W&WO CN Ting Camilo MD [address] [place] [address] Ct Imaging Referral ID Status Reason Start Date Expiration Date V isits Requested Visits Authorized [id number] Closed Auto-Generate d Referral 04/15/2021 05/06/2021 1 1 Chief Complaint and Reason for Visit Chief Complaint Elevated BP diarrhea vomiting Chief Complaint vomiting Additional Source Comments INFORMATION SOURCE (unrecogn ized section and content) DATE CREATED AUTHOR 03/04/2020 [facility] DATE CREATED AUTHOR AUTHOR'S ORGANIZ ATION 08/14/2021 [facility] DATE CREATED AUTHOR AUTHOR'S ORGANIZ ATION 12/28/2021 [facility] DATE CREATED AUTHOR AUTHOR'S ORGANIZ ATION 07/18/2022 [facility] DATE CREATED AUTHOR AUTHOR'S ORGANIZ ATION 09/02/2022 [facility] DATE CREATED AUTHOR AUTHOR'S ORGANIZ ATION 08/29/2023 [facility] DATE CREATED AUTHOR AUTHOR'S ORGANIZ ATION 09/08/2023 [facility] DATE CREATED AUTHOR AUTHOR'S ORGANIZ ATION 01/25/2024 [facility] EPIC Source Comments (unrecognize d section and content) In the event this informatio n is protected by the Federal Confidentiality of Alcohol and Drug Abuse Patient Records regulations: The Federal rules restrict any use of the information to criminally investigate or prosecute any alcohol or drug abuse patient.[facility] the event this information is protected by the Federal Confidentiality of Alcohol and Drug Abuse Patient Records regulations: The Federal rules restrict any use of the information to criminally investigate or prosecute any alcohol or drug abuse patient.[facility] the event this information is protected by the Federal Confidentiality of Alcohol and Drug Abuse Patient Records regulations: The Federal rules restrict any use of the information to criminally investigate or prosecute any alcohol or drug abuse patient.[facility] the event this information is protected by the Federal Confidentiality of Alcohol and Drug Abuse Patient Records regulations: The Federal rules restrict any use of the information to criminally investigate or prosecute any alcohol or drug abuse patient.[facility] the event this information is protected by the Federal Confidentiality of Alcohol and Drug Abuse Patient Records regulations: The Federal rules restrict any use of the information to criminally investigate or prosecute any alcohol or drug abuse patient.[facility] the event this information is protected by the Federal Confidentiality of Alcohol and Drug Abuse Patient Records regulations: The Federal rules restrict any use of the information to criminally investigate or prosecute any alcohol or drug abuse patient.[facility] the event this information is protected by the Federal Confidentiality of Alcohol and Drug Abuse Patient Records regulations: The Federal rules restrict any use of the information to criminally investigate or prosecute any alcohol or drug abuse patient.[facility] the event this information is protected by the Federal Confidentiality of Alcohol and Drug Abuse Patient Records regulations: The Federal rules restrict any use of the information to criminally investigate or prosecute any alcohol or drug abuse patient.[facility] the event this information is protected by the Federal Confidentiality of Alcohol and Drug Abuse Patient Records regulations: The Federal rules restrict any use of the information to criminally investigate or prosecute any alcohol or drug abuse patient.[facility] the event this information is protected by the Federal Confidentiality of Alcohol and Drug Abuse Patient Records regulations: The Federal rules restrict any use of the information to criminally investigate or prosecute any alcohol or drug abuse patient.[facility] the event this information is protected by the Federal Confidentiality of Alcohol and Drug Abuse Patient Records regulations: The Federal rules restrict any use of the information to criminally investigate or prosecute any alcohol or drug abuse patient.[facility] Center[facility] the event this information is protected by the Federal Confidentiality of Alcohol and Drug Abuse Patient Records regulations: The Federal rules restrict any use of the information to criminally investigate or prosecute any alcohol or drug abuse patient.[facility] Center[facility] the event this information is protected by the Federal Confidentiality of Alcohol and Drug Abuse Patient Records regulations: The Federal rules restrict any use of the information to criminally investigate or prosecute any alcohol or drug abuse patient.[facility] Center[facility] the event this information is protected by the Federal Confidentiality of Alcohol and Drug Abuse Patient Records regulations: The Federal rules restrict any use of the information to criminally investigate or prosecute any alcohol or drug abuse patient.[facility] Center[facility] the event this information is protected by the Federal Confidentiality of Alcohol and Drug Abuse Patient Records regulations: The Federal rules restrict any use of the information to criminally investigate or prosecute any alcohol or drug abuse patient.[facility] CenterIn the event this information is protected by the Federal Confidentiality of Alcohol and Drug Abuse Patient Records regulations: The Federal rules restrict any use of the information to criminally investigate or prosecute any alcohol or drug abuse patient.[facility] CenterIn the event this information is protected by the Federal Confidentiality of Alcohol and Drug Abuse Patient Records regulations: The Federal rules restrict any use of the information to criminally investigate or prosecute any alcohol or drug abuse patient.[facility] CenterIn the event this information is protected by the Federal Confidentiality of Alcohol and Drug Abuse Patient Records regulations: The Federal rules restrict any use of the information to criminally investigate or prosecute any alcohol or drug abuse patient.[facility] CenterIn the event this information is protected by the Federal Confidentiality of Alcohol and Drug Abuse Patient Records regulations: The Federal rules restrict any use of the information to criminally investigate or prosecute any alcohol or drug abuse patient.[facility] CenterIn the event this information is protected by the Federal Confidentiality of Alcohol and Drug Abuse Patient Records regulations: The Federal rules restrict any use of the information to criminally investigate or prosecute any alcohol or drug abuse patient.[facility] CenterIn the event this information is protected by the Federal Confidentiality of Alcohol and Drug Abuse Patient Records regulations: The Federal rules restrict any use of the information to criminally investigate or prosecute any alcohol or drug abuse patient.[facility] CenterIn the event this information is protected by the Federal Confidentiality of Alcohol and Drug Abuse Patient Records regulations: The Federal rules restrict any use of the information to criminally investigate or prosecute any alcohol or drug abuse patient.[facility] CenterIn the event this information is protected by the Federal Confidentiality of Alcohol and Drug Abuse Patient Records regulations: The Federal rules restrict any use of the information to criminally investigate or prosecute any alcohol or drug abuse patient.[facility] CenterIn the event this information is protected by the Federal Confidentiality of Alcohol and Drug Abuse Patient Records regulations: The Federal rules restrict any use of the information to criminally investigate or prosecute any alcohol or drug abuse patient.[facility] CenterIn the event this information is protected by the Federal Confidentiality of Alcohol and Drug Abuse Patient Records regulations: The Federal rules restrict any use of the information to criminally investigate or prosecute any alcohol or drug abuse patient.[facility] CenterIn the event this information is protected by the Federal Confidentiality of Alcohol and Drug Abuse Patient Records regulations: The Federal rules restrict any use of the information to criminally investigate or prosecute any alcohol or drug abuse patient.[facility] CenterIn the event this information is protected by the Federal Confidentiality of Alcohol and Drug Abuse Patient Records regulations: The Federal rules restrict any use of the information to criminally investigate or prosecute any alcohol or drug abuse patient.[facility] CenterIn the event this information is protected by the Federal Confidentiality of Alcohol and Drug Abuse Patient Records regulations: The Federal rules restrict any use of the information to criminally investigate or prosecute any alcohol or drug abuse patient.[facility] CenterIn the event this information is protected by the Federal Confidentiality of Alcohol and Drug Abuse Patient Records regulations: The Federal rules restrict any use of the information to criminally investigate or prosecute any alcohol or drug abuse patient.[facility] CenterIn the event this information is protected by the Federal Confidentiality of Alcohol and Drug Abuse Patient Records regulations: The Federal rules restrict any use of the information to criminally investigate or prosecute any alcohol or drug abuse patient.[facility] CenterIn the event this information is protected by the Federal Confidentiality of Alcohol and Drug Abuse Patient Records regulations: The Federal rules restrict any use of the information to criminally investigate or prosecute any alcohol or drug abuse patient.[facility] CenterIn the event this information is protected by the Federal Confidentiality of Alcohol and Drug Abuse Patient Records regulations: The Federal rules restrict any use of the information to criminally investigate or prosecute any alcohol or drug abuse patient.[facility] CenterIn the event this information is protected by the Federal Confidentiality of Alcohol and Drug Abuse Patient Records regulations: The Federal rules restrict any use of the information to criminally investigate or prosecute any alcohol or drug abuse patient.[facility] CenterIn the event this information is protected by the Federal Confidentiality of Alcohol and Drug Abuse Patient Records regulations: The Federal rules restrict any use of the information to criminally investigate or prosecute any alcohol or drug abuse patient.[facility] CenterIn the event this information is protected by the Federal Confidentiality of Alcohol and Drug Abuse Patient Records regulations: The Federal rules restrict any use of the information to criminally investigate or prosecute any alcohol or drug abuse patient.[facility] CenterIn the event this information is protected by the Federal Confidentiality of Alcohol and Drug Abuse Patient Records regulations: The Federal rules restrict any use of the information to criminally investigate or prosecute any alcohol or drug abuse patient.[facility] CenterIn the event this information is protected by the Federal Confidentiality of Alcohol and Drug Abuse Patient Records regulations: The Federal rules restrict any use of the information to criminally investigate or prosecute any alcohol or drug abuse patient.[facility] CenterIn the event this information is protected by the Federal Confidentiality of Alcohol and Drug Abuse Patient Records regulations: The Federal rules restrict any use of the information to criminally investigate or prosecute any alcohol or drug abuse patient.[facility] CenterIn the event this information is protected by the Federal Confidentiality of Alcohol and Drug Abuse Patient Records regulations: The Federal rules restrict any use of the information to criminally investigate or prosecute any alcohol or drug abuse patient.[facility] CenterIn the event this information is protected by the Federal Confidentiality of Alcohol and Drug Abuse Patient Records regulations: The Federal rules restrict any use of the information to criminally investigate or prosecute any alcohol or drug abuse patient.[facility] Reason for Visit (unrecogniz ed section and content) Reason Comments Back Pain neck and back pain Reason Comments Cardiology Follow Up Reason Comments Follow Up Hypertension Reason Comments Pain Reason Comments [place] - Other Reason Comments Abdominal Pain 2 m Reason Comments Follow Up Hypertension Reason Comments BP 24 Hour Monitor Evaluation Reason Comments Results Reason Comments Ear Problem Dizziness Specialty Diagnoses / Procedures Referred By Contac t Referred To Contact Diagnoses Other specified hearing loss, unspecified ear Procedures HEARING TEST/AUDIOGRAM COMPRE AUDIOMETRY THRESHOLD ANALISAAL Fabien Simon PA-C [address] [place] [address] [facility] [address] [place] [address] Referral ID Status Reason Start Date Expiration Date V isits Requested Visits Authorized [id number] Closed Auto-Generate d Referral 05/29/2022 08/27/2022 1 [...] RS PT VESTIBULAR DIZZY Fabien Gonzalez PA-C [address] [place] [address] Yanelis French, PT, DPT [address] [facility] [address] [place] [address] Referral ID Status Reason Start Date Expiration Date V isits Requested Visits Authorized [id number] Authorized 07/14/2022 05/06/2023 99 99 Reason Comments Physical Therapy Specialty Diagnoses / Procedures Referred By Contac t Referred To Contact Physical Therapy / PHYSICAL THERAPY Diagnoses Dizziness [R42] Lightheadedness [R42] Procedures PHYSICAL THERAPY EVALUATION HIGH COMPLEX 45 MINS THERAPEUTIC EXERCISES RE, EA 15 MIN. NEW RS PT VESTIBULAR DIZZY Fabien Gonzalez PA-C [address] [place] [address] Yanelis French, PT, DPT [address] [facility] [address] [place] [address] Reason Comments New Patient Reason Comments Radiology CT Specialty Diagnoses / Procedures Referred By Contac t Referred To Contact Radiology / RADIO CT SCAN [facility] RAD[facility] Diagnoses CTA ABDOMEN W IVCON Renovascular hypertension [I15.0] Chronic renal failure, stage 3a (HCC) [N18.31] Procedures CTA WWO ABD/PEL 400 Ting Camilo MD [address] [place] [address] [facility] [address] [place] [address] Referral ID Status Reason Start Date Expiration Date Visits Re quested Visits Authorized [id number] Closed 04/28/2021 07/27/2021 1 1 Reason Comments Radiology NM Specialty Diagnoses / Procedures Referred By Contac t Referred To Contact MOLECULAR & FUNCTIONAL IMAGING Diagnoses Arteritis, Takayasu (HCC) Arterial disease (HCC) Bilateral carotid artery stenosis Subclavian arterial stenosis (HCC) Procedures NM PET/CT WHOLE BODY INITIAL TUMOR IMAG PET W/CONCURNT CT-WHOLE BODY Tiara Lynne MD [address] [place] [address] Molecular & Functional Imaging [address] [place] [address] Referral ID Status Reason Start Date Expiration Date V isits Requested Visits Authorized [id number] Closed Auto-Generate d Referral 04/22/2021 05/06/2021 [address] Specialty Diagnoses / Procedures Referred By Contac t Referred To Contact CT IMAGING Diagnoses Encounter for screening for cardiovascular disorders Procedures CTA NECK W IVCON CTA NECK, W/WO C, W/3D Elliott Salazar MD [id number] Imaging Referral ID Status Reason Start Date Expiration Date V isits Requested Visits Authorized [id number] Closed Auto-Generate d Referral 01/06/2020 02/04/2020 1 [...] August 19, 2023 End: August 19, 2023 Ingot Header Relationship Specialty Start Date End Date Stephany Henderson, VFX ARTIST [address] [place] [address] PCP - General Family Practice 01/26/20 Stephany Henderson, VFX ARTIST [address] [place] [address] Referring Family Practice 03/17/19 Ting Camilo, [address] [place] [address] Primary Staff Physician Nephrology 06/02/21 Ingot Header Relationship Specialty Start Date End Date Stephany Henderson, VFX ARTIST [address] [place] [address] PCP - General Family Practice 01/26/20 Stephany Henderson, VFX ARTIST [address] [place] [address] Referring Family Practice 03/17/19 Ting Camilo MD [address] [place] [address] Primary Staff Physician Nephrology 06/02/21 Ingot Header Relationship Specialty Start Date End Date Stephany Henderson, VFX ARTIST [address] [place] [address] PCP - General Family Practice 01/26/20 Stephany Henderson, VFX ARTIST [address] [place] [address] Referring Family Practice 03/17/19 Ting Camilo MD [address] [place] [address] Primary Staff Physician Nephrology 06/02/21 Ingot Header Relationship Specialty Start Date End Date Renetta Ridley, VFX ARTIST [address] [place] [address] PCP - General Family Practice 09/20/21 Stephany Henderson, VFX ARTIST [address] [place] [address] Referring Family Practice 03/17/19 Ting Camilo MD [address] [place] [address] Primary Staff Physician Nephrology 06/02/21 Ingot Header Relationship Specialty Start Date End Date Renetta Ridley, VFX ARTIST [address] [place] [address] PCP - General Family Practice 09/20/21 Stephany Henderson, VFX ARTIST [address] [place] [address] Referring Family Practice 03/17/19 Ting Camilo MD [address] [place] [address] Primary Staff Physician Nephrology 06/02/21 Ingot Header Relationship Specialty Start Date End Date Renetta Ridley, VFX ARTIST [address] [place] [address] PCP - General Family Practice 09/20/21 Stephany Henderson, VFX ARTIST [address] [place] [address] Referring Family Practice 03/17/19 Ting Camilo MD [address] [place] [address] Primary Staff Physician Nephrology 06/02/21 Ingot Header Relationship Specialty Start Date End Date Renetta Ridley, VFX ARTIST [address] [place] [address] PCP - General Family Practice 09/20/21 Stephany Henderson, VFX ARTIST [address] [place] [address] Referring Family Practice 03/17/19 Ting Camilo MD [address] [place] [address] Primary Staff Physician Nephrology 06/02/21 Ingot Header Relationship Specialty Start Date End Date Renetta Ridley, VFX ARTIST [address] [place] [address] PCP - General Family Practice 09/20/21 Stephany Henderson, VFX ARTIST [address] [place] [address] Referring Family Practice 03/17/19 Ting Camilo MD [address] [place] [address] Primary Staff Physician Nephrology 06/02/21 Ingot Header Relationship Specialty Start Date End Date Renetta Ridley, VFX ARTIST [address] [place] [address] PCP - General Family Medicine 09/20/21 Stephany Henderson, VFX ARTIST [address] [place] [address] Referring Family Medicine 03/17/19 Ting Camilo MD [address] [place] [address] Primary Staff Physician Nephrology 06/02/21 Ingot Header Relationship Specialty Start Date End Date Renetta Ridley, VFX ARTIST [address] [place] [address] PCP - General Family Medicine 09/20/21 Stephany Henderson, VFX ARTIST [address] [place] [address] Referring Family Medicine 03/17/19 Ting Camilo MD [address] [place] [address] Primary Staff Physician Nephrology 06/02/21 Ingot Header Relationship Specialty Start Date End Date Renetta Ridley, VFX ARTIST [address] [place] [address] PCP - General Family Medicine 09/20/21 Stephany Henderson, VFX ARTIST [address] [place] [address] Referring Family Medicine 03/17/19 Ting Camilo MD [address] [place] [address] Primary Staff Physician Nephrology 06/02/21 Ingot Header Relationship Specialty Start Date End Date Renetta Ridley, VFX ARTIST [address] [place] [address] PCP - General Family Medicine 09/20/21 Stephany Henderson, VFX ARTIST [address] [place] [address] Referring Family Medicine 03/17/19 Ting Camilo MD [address] [place] [address] Primary Staff Physician Nephrology 06/02/21 Ingot Header Relationship Specialty Start Date End Date Renetta Ridley, VFX ARTIST [address] [place] [address] PCP - General Family Medicine 09/20/21 Stephany Henderson, VFX ARTIST [address] [place] [address] Referring Family Medicine 03/17/19 Ting Camilo MD [address] [place] [address] Primary Staff Physician Nephrology 06/02/21 Ingot Header Relationship Specialty Start Date End Date Renetta Ridley, VFX ARTIST [address] [place] [address] PCP - General Family Medicine 09/20/21 Stephany Henderson, VFX ARTIST [address] [place] [address] Referring Family Medicine 03/17/19 Ting Camilo MD [address] [place] [address] Primary Staff Physician Nephrology 06/02/21 Ingot Header Relationship Specialty Start Date End Date Renetta Ridley, VFX ARTIST [address] [place] [address] PCP - General Family Medicine 09/20/21 Stephany Henderson, VFX ARTIST [address] [place] [address] Referring Family Medicine 03/17/19 Ting Camilo MD [address] [place] [address] Primary Staff Physician Nephrology 06/02/21 Ingot Header Relationship Specialty Start Date End Date Renetta Ridley, VFX ARTIST [address] [place] [address] PCP - General Family Medicine 09/20/21 Stephany Henderson, VFX ARTIST [address] [place] [address] Referring Family Medicine 03/17/19 Ting Camilo MD [address] [place] [address] Primary Staff Physician Nephrology 06/02/21 Ingot Header Relationship Specialty Start Date End Date RejiRenetta menendez, VFX ARTIST [address] [place] [address] PCP - General Family Medicine 09/20/21 Stephany Henderson, VFX ARTIST [address] [place] [address] Referring Family Medicine 03/17/19 Ting Camilo MD [address] [place] [address] Primary Staff Physician Nephrology 06/02/21 Team Status: Inactive Member Role Status Dates Renetta Ridley Primary Care Provider Active Shelton Lala PA-C Emergency Provider Active Team Status: Inactive Member Role Status Dates Renetta Ridley Primary Care Provider Active Terrell Mc DO Emergency Provider Active Ingot Header Relationship Specialty Start Date End Date Renetta Ridley, VFX ARTIST [address] [place] [address] PCP - General Family Medicine 09/20/21 Stephany Henderson, VFX ARTIST [address] [place] [address] Referring Family Medicine 03/17/19 Ting Camilo MD [address] [place] [address] Primary Staff Physician Nephrology 06/02/21 Ingot Header Relationship Specialty Start Date End Date Renetta Ridley, VFX ARTIST [address] [place] [address] PCP - General Family Medicine 09/20/21 Stephany Henderson, VFX ARTIST [address] [place] [address] Referring Family Medicine 03/17/19 Ting Camilo MD [address] [place] [address] Primary Staff Physician Nephrology 06/02/21 Ingot Header Relationship Specialty Start Date End Date Renetta Ridley, VFX ARTIST [address] [place] [address] PCP - General Family Medicine 09/20/21 Stephany Henderson, VFX ARTIST [address] [place] [address] Referring Family Medicine 03/17/19 Ting Camilo MD [address] [place] [address] Primary Staff Physician Nephrology 06/02/21 Ingot Header Relationship Specialty Start Date End Date Renetta Ridley, VFX ARTIST [address] [place] [address] PCP - General Family Medicine 09/20/21 Stephany Henderson, VFX ARTIST [address] [place] [address] Referring Family Medicine 03/17/19 Ting Camilo MD [address] [place] [address] Primary Staff Physician Nephrology 06/02/21 Ingot Header Relationship Specialty Start Date End Date Renetta Ridley, VFX ARTIST [address] [place] [address] PCP - General Family Medicine 09/20/21 Stephany Henderson, VFX ARTIST [address] [place] [address] Referring Family Medicine 03/17/19 Ting Camilo MD [address] [place] [address] Primary Staff Physician Nephrology 06/02/21 Ingot Header Relationship Specialty Start Date End Date Renetta Ridley, VFX ARTIST [address] [place] [address] PCP - General Family Medicine 09/20/21 Stephany Henderson, VFX ARTIST [address] [place] [address] Referring Family Medicine 03/17/19 Ting Camilo MD [address] [place] [address] Primary Staff Physician Nephrology 06/02/21 Ingot Header Relationship Specialty Start Date End Date Stephany Henderson VFX ARTIST [address] [place] [address] PCP - General Family Medicine 01/26/20 09/19/21 Stephany Henderson, VFX ARTIST [address] [place] [address] Referring Family Medicine 03/17/19 Ingot Header Relationship Specialty Start Date End Date Stephany Henderson, VFX ARTIST [address] [place] [address] PCP - General Family Medicine 01/26/20 09/19/21 Stephany Henderson, VFX ARTIST [address] [place] [address] Referring Family Medicine 03/17/19 Ingot Header Relationship Specialty Start Date End Date Stephany Henderson, VFX ARTIST [address] [place] [address] PCP - General Family Medicine 01/26/20 09/19/21 Stephany Henderson, VFX ARTIST [address] [place] [address] Referring Family Medicine 03/17/19 Ingot Header Relationship Specialty Start Date End Date Stephany Henderson, VFX ARTIST [address] [place] [address] Referring Family Medicine 03/17/19 Ingot Header Relationship Specialty Start Date End Date Keyur Quarles MD [address] [place] [id number] PCP - General Family Medicine 06/19/23 Renetta Ridley NP [address] [place] [address] Nurse Practitioner Family Medicine 06/19/23 Ingot Header Relationship Specialty Start Date End Date Keyur Quarles MD [address] [place] [id number] PCP - General Family Medicine 06/19/23 Renetta Ridley NP [address] [place] [address] Nurse Practitioner Family Medicine 06/19/23 Ingot Header Relationship Specialty Start Date End Date Keyur Quarles MD [address] [place] [address] PCP - General Family Medicine 06/19/23 Renetta Ridley NP [address] [place] [id number] Nurse Practitioner [facility] 06/19/23 Ingot Header Relationship Specialty Start Date End Date Renetta Ridley APRN-VFX ARTIST [address] [place], [place] [id number] PCP - General 09/04/23 Goals (unrecognized section [...] BE BASED ON THE PRIMARY CLINICAL RECORDS. [employer] provides no warranty or guarantee of the accuracy or completeness of information in this document.
--- NOTE | 2024-02-01 15:18 | ED_ITS ---
HPI - Neuro Symptoms/Deficit General Chief Complaint: Neuro Symptoms/Deficit Stated Complaint: L ARM WEAKNESS, DIZZY, CAR BLOCKAGE Time Seen by Provider: 02/01/24 15:10 History of Present Illness HPI Narrative: Patient is a 53-year-old female who presents to the emergency department for the evaluation of abnormal outpatient testing. 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 The left carotid arteries are widely patent. Patient has been having intermittent dizziness, left arm weakness for several months. She does have a history of stents to one of her iliac arteries and states she has previously seen vascular surgery of both the [facility] and . She states she was told that nothing else could be done for her as her stents are starting to block up again. She is tearful and anxious at initial interview. She states she has been having intermittent visual changes and headache. She is noted to have uncontrolled blood pressure as well. Related Data Home Medications ?Medication ?Instructions ?Recorded ?Confirmed alprazolam 0.5 mg tablet mg 02/01/24 Previous Rx's ?Medication ?Instructions ?Recorded aspirin 81 mg tablet,delayed 81 mg PO DAILY #30 tabs 02/01/24 release clopidogrel 75 mg tablet (Plavix) 75 mg PO DAILY #30 tabs 02/01/24 Allergies Allergy/AdvReac Type Severity Reaction Status Date / Time bupropion [From Wellbutrin] Allergy Mild rash Verified 02/01/24 15:18 Penicillins Allergy Mild Rash Verified 02/01/24 15:18 amlodipine AdvReac Mild Rash Verified 02/01/24 15:18 Review of Systems ROS Constitutional Denies: fever or chills Ears, nose, mouth, and throat Denies: throat pain or nasal congestion Respiratory Denies: shortness of breath Gastrointestinal Denies: nausea or vomiting Musculoskeletal Denies: back pain or neck pain Hematologic/Lymphatic Denies: easy bruising or easy bleeding Exam Narrative Exam Narrative: Gen.: Awake, alert, in no distress Head: Normocephalic, atraumatic ENT: Moist mucous membranes Respiratory: No respiratory distress, lungs clear bilaterally Cardio: Regular rate and rhythm Extremities: Moves extremities equally Psych: Normal mood and affect Neuro: No focal neuro deficit Skin: Warm, dry, intact Constitutional Vital Signs, click to edit/add: Last Vital Signs Temp 98.3 F 02/01/24 15:50 Pulse 75 02/01/24 17:05 Resp 15 02/01/24 16:00 BP 135/86 02/01/24 17:05 Pulse Ox 95 02/01/24 17:05 O2 Del Method Room Air 02/01/24 15:50 Course Vital Signs Vital signs: Vital Signs Pulse Oximetry 97 02/01/24 15:39 Temperature 98.3 F 02/01/24 15:50 Pulse Rate 75 02/01/24 17:05 Respiratory Rate 15 02/01/24 16:00 Blood Pressure 135/86 02/01/24 17:05 Pulse Oximetry 95 02/01/24 17:05 Oxygen Delivery Method Room Air 02/01/24 15:50 MDM - Neuro Symptoms/Deficit MDM Narrative Medical decision making narrative: On arrival to the ER, the patient was noted to be hypertensive and anxious. She was given labetalol and Ativan with significant improvement. She is resting more comfortably and vital signs are within normal limits. She has no focal neurodeficits in the ER or other focal medical complaints at this time. CT of the brain, CT angio of the head and neck were obtained. I discussed the case with Dr. Abad for vascular surgery. He reviewed the results of the patient's ultrasound and he can see the patient as an outpatient next in the office. No emergent medical need for transfer at this time. He recommended antiplatelet therapy for the patient. The noncontrast CT showed questionable chronic changes versus edema of the brain, these results were reviewed with Dr. Bonilla for neurology at [facility]. She recommended dual antiplatelet therapy and follow-up next week with vascular surgery. Patient was reevaluated by attending physician. She is started on aspirin and Plavix for home. Follow- up with vascular surgery, follow-up with PCP for repeat blood pressure evaluation and return to the ER if symptoms change or worsen. SHARED APC VISIT, PHYSICIAN ATTESTATION: [id number] I performed a substantive part of the MDM during the patient?s E/M visit. I personally evaluated and examined the patient. I personally made or approved the documented management plan and acknowledge its risk of complications. Medical Records Attestation: I reviewed the patient's medical records. Lab Data Attestation: I reviewed the patient's lab results. Labs: Lab Results 02/01/24 Range/Units 15:29 WBC 9.8 (4.0-11.0) 10^3/uL RBC 4.78 (4.20-5.40) 10^6/uL Hgb 15.0 (12.0-16.0) g/dL Hct 43.9 (36.0-48.0) % MCV 91.8 (81.0-99.0) fL MCH 31.4 (26.7-34.0) pg MCHC 34.2 (29.9-35.2) g/dL RDW 12.3 (11.0-15.0) % Plt Count 286 (150-450) 10^3/uL MPV 9.2 L (9.5-13.5) fL Neut % (Auto) 50.1 (43.0-75.0) % Lymph % (Auto) 41.0 (20.5-60.0) % [place] % (Auto) 7.2 (1.7-12.0) % Eos % (Auto) 1.2 (0.9-7.0) % Baso % (Auto) 0.3 (0.2-2.0) % Neut # (Auto) 4.9 (1.4-6.5) 10^3/uL Lymph # (Auto) 4.0 H (1.2-3.8) 10^3/uL [place] # (Auto) 0.7 (0.3-0.8) 10^3/uL Eos # (Auto) 0.1 (0.0-0.7) 10^3/uL Baso # (Auto) 0.0 (0.0-0.1) 10^3/uL Abs Immat Gran (auto) 0.02 (0.00-0.03) 10^3/uL Imm/Tot Granulo (auto) 0.2 (0.0-0.5) % PT 10.9 (9.0-11.6) sec INR 1.03 Sodium 137 (136-145) mmol/L Potassium 4.0 (3.5-5.1) mmol/L Chloride 100 (98-107) mmol/L Carbon Dioxide 28.0 (21.0-32.0) mmol/L Anion Gap 13.0 BUN 14.0 (7.0-18.0) mg/dL Creatinine 0.97 (0.55-1.02) mg/dL Est GFR ( Amer) >60 (>=60) Est GFR (Non-Af Amer) >60 (>=60) BUN/Creatinine Ratio 14.4 Glucose 89 (74-106) mg/dL Calcium 9.8 (8.5-10.1) mg/dL Total Bilirubin 0.8 (0.2-1.0) mg/dL AST 59 H (15-37) U/L ALT 79 H (14-59) U/L Alkaline Phosphatase 104 (46-116) U/L Troponin I High Sens 6.0 (4.0-51.3) pg/mL Total Protein 7.7 (6.4-8.2) g/dL Albumin 4.1 (3.4-5.0) g/dL Globulin 3.6 g/dL Albumin/Globulin Ratio 1.[address] scan - head: Attestation: I have reviewed the pertinent imaging results. Radiologist's impression: ITS Impressions Brain CT 02/01/24 15:10 IMPRESSION: 1. No intracranial hemorrhage. 2. Bilateral upper anterior frontal lobe irregular harden matter thinning versus loss of harden-white differentiation secondary to mild edema. No appreciable effacement of the sulci or mass effect. 3. No appreciable acute abnormality. Consider follow-up MRI of brain for further evaluation. Findings called to the emergency department via telephone at 3:36 PM Electronically authenticated by: FIOR TORRES Date: 02/01/2024 15:36 Head CTA 02/01/24 15:19 IMPRESSION: No large vessel occlusion. 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 Patent dural venous sinuses. An aberrant right subclavian artery is present. The right common carotid arises directly from the aortic arch. A stent in the proximal right common carotid artery is present. Occlusion of most of the right common carotid artery from its origin to near the common carotid bifurcation is noted. There is likely retrograde flow in the small right internal carotid to supply the right external carotid. Left common carotid and internal carotid show no significant stenosis. Vertebral arteries show no significant stenosis. Electronically authenticated by: TC HERNANDEZ Date: 02/01/2024 17:08 Neck CTA 02/01/24 15:19 IMPRESSION: No large vessel occlusion. 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 Patent dural venous sinuses. An aberrant right subclavian artery is present. The right common carotid arises directly from the aortic arch. A stent in the proximal right common carotid artery is present. Occlusion of most of the right common carotid artery from its origin to near the common carotid bifurcation is noted. There is likely retrograde flow in the small right internal carotid to supply the right external carotid. Left common carotid and internal carotid show no significant stenosis. Vertebral arteries show no significant stenosis. Electronically authenticated by: TC HERNANDEZ Date: 02/01/2024 17:08 ECG Data Attestation: I personally reviewed and interpreted this ECG as follows: (Normal sinus rhythm at a rate of 74, no acute ST elevation or ectopy. EKG reviewed by attending physician) Discharge Plan Discharge Chief Complaint: Neuro Symptoms/Deficit Clinical Impression: Carotid artery occlusion Patient Disposition: Home, Self-Care Time of Disposition Decision: 17:30 Condition: Good Prescriptions / Home Meds: New aspirin 81 mg tablet,delayed release (DR/EC) 81 mg PO DAILY Qty: 30 0RF clopidogrel [Plavix] 75 mg tablet 75 mg PO DAILY Qty: 30 0RF No Action alprazolam 0.5 mg tablet Print Language: Korean Instructions: Carotid Artery Disease (DC) Additional Instructions: Please call Renetta's office on Sunday for follow up, Please call Dr. Abad's office on Sunday to be scheduled for office follow up on next week Referrals: Renetta Ridley NP [Primary Care Provider] - 1 week Eugene Abad MD [Physician] - 02/07/24 ([phone])
--- NOTE | 2024-02-01 15:19 | CT_ITS ---
[address] [address] Patient Name: CARYN VALERO MRN: [id number] date: 1970 Sex: F Assigned Patient Location: ER Current Patient Location: ER Accession/Order Number: [id number] Exam Date: 02/01/2024 16:05 Report Date: 02/01/2024 17:08 At the request of: DARLENE OLSEN Procedure: CT angio neck EXAM: CT angio head, CT angio neck HISTORY: Left arm weakness and dizziness. Right common carotid occlusion on carotid ultrasound. COMPARISON: Head CT without contrast on 02/01/2024. Carotid Doppler sonogram on 02/01/2024 TECHNIQUE: Following IV administration of iodinated contrast, axial CT scans of the head and neck were obtained. MPR and MIP images images were obtained. In addition, 3-D reconstruction images were generated using a separate independent workstation. Carotid stenosis is based on NASCET criteria. Dose reduction techniques were achieved by using automated exposure control and/or adjustment of mA and/or kV according to patient size and/or the use of an iterative reconstruction technique. FINDINGS: CTA OF THE HEAD: No large vessel occlusion. The right internal carotid is very small in caliber due to the occlusion to of the majority of the right common carotid. 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 No aneurysm. Dural venous sinuses are patent. CTA OF THE NECK: 0.6 mL low attenuated nodule in the right thyroid lobe. No adenopathy in the neck. The visualized lungs are clear. Osseous structures are intact. The aortic arch shows no aneurysm. An aberrant right subclavian artery is present. The right common carotid arises directly from the aortic arch. A stent in the proximal right common carotid artery is present. Occlusion of most of the right common carotid artery from its origin to near the common carotid bifurcation is noted. There is likely retrograde flow in the small right internal carotid to supply the right external carotid. Left common carotid and internal carotid show no significant stenosis. Vertebral arteries show no significant stenosis. CT/CT angio neck IMPRESSION: No large vessel occlusion. 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 Patent dural venous sinuses. An aberrant right subclavian artery is present. The right common carotid arises directly from the aortic arch. A stent in the proximal right common carotid artery is present. Occlusion of most of the right common carotid artery from its origin to near the common carotid bifurcation is noted. There is likely retrograde flow in the small right internal carotid to supply the right external carotid. Left common carotid and internal carotid show no significant stenosis. Vertebral arteries show no significant stenosis. Electronically authenticated by: TC HERNANDEZ Date: 02/01/2024 17:08
--- NOTE | 2024-02-01 15:19 | CT_ITS ---
[address] [address] Patient Name: CARYN VALERO MRN: [id number] date: 1970 Sex: F Assigned Patient Location: ER Current Patient Location: ER Accession/Order Number: [id number] Exam Date: 02/01/2024 16:05 Report Date: 02/01/2024 17:08 At the request of: DARLENE OLSEN Procedure: CT angio head EXAM: CT angio head, CT angio neck HISTORY: Left arm weakness and dizziness. Right common carotid occlusion on carotid ultrasound. COMPARISON: Head CT without contrast on 02/01/2024. Carotid Doppler sonogram on 02/01/2024 TECHNIQUE: Following IV administration of iodinated contrast, axial CT scans of the head and neck were obtained. MPR and MIP images images were obtained. In addition, 3-D reconstruction images were generated using a separate independent workstation. Carotid stenosis is based on NASCET criteria. Dose reduction techniques were achieved by using automated exposure control and/or adjustment of mA and/or kV according to patient size and/or the use of an iterative reconstruction technique. FINDINGS: CTA OF THE HEAD: No large vessel occlusion. The right internal carotid is very small in caliber due to the occlusion to of the majority of the right common carotid. 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 No aneurysm. Dural venous sinuses are patent. CTA OF THE NECK: 0.6 mL low attenuated nodule in the right thyroid lobe. No adenopathy in the neck. The visualized lungs are clear. Osseous structures are intact. The aortic arch shows no aneurysm. An aberrant right subclavian artery is present. The right common carotid arises directly from the aortic arch. A stent in the proximal right common carotid artery is present. Occlusion of most of the right common carotid artery from its origin to near the common carotid bifurcation is noted. There is likely retrograde flow in the small right internal carotid to supply the right external carotid. Left common carotid and internal carotid show no significant stenosis. Vertebral arteries show no significant stenosis. CT/CT angio head IMPRESSION: No large vessel occlusion. 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 Patent dural venous sinuses. An aberrant right subclavian artery is present. The right common carotid arises directly from the aortic arch. A stent in the proximal right common carotid artery is present. Occlusion of most of the right common carotid artery from its origin to near the common carotid bifurcation is noted. There is likely retrograde flow in the small right internal carotid to supply the right external carotid. Left common carotid and internal carotid show no significant stenosis. Vertebral arteries show no significant stenosis. Electronically authenticated by: TC HERNANDEZ Date: 02/01/2024 17:08
[2024-02-01 15:43] LABS: Basophils Percent Auto 0.3 % (0.2-2.0); Eosinophils Absolute Auto 0.1 10^3/uL (0.0-0.7); Eosinophils Percent Auto 1.2 % (0.9-7.0); Hematocrit 43.9 % (36.0-48.0); Immature Granulocytes Abs Auto 0.02 10^3/uL (0.00-0.03); Immature Granulocytes Pct Auto 0.2 % (0.0-0.5); Mean Corpuscular HGB Conc 34.2 g/dL (29.9-35.2); Mean Corpuscular Hemoglobin 31.4 pg (26.7-34.0); Mean Corpuscular Volume 91.8 fL (81.0-99.0); Mean Platelet Volume 9.2 fL (9.5-13.5); Monocytes Absolute Auto 0.7 10^3/uL (0.3-0.8); Monocytes Percent Auto 7.2 % (1.7-12.0); Neutrophils Absolute Auto 4.9 10^3/uL (1.4-6.5); Neutrophils Percent Auto 50.1 % (43.0-75.0); Platelet Count 286 10^3/uL (150-450); Red Blood Count 4.78 10^6/uL (4.20-5.40); Red Cell Distribution Width 12.3 % (11.0-15.0); White Blood Count 9.8 10^3/uL (4.0-11.0)
[2024-02-01] MEDS: LORAZEPAM 2 MG/ML VIAL 1 MG IV (15:46)
[2024-02-01] MEDS: LABETALOL HCL 20 MG/4 ML SYRINGE 10 MG IVP (15:46)
[2024-02-01 15:50] LABS: INR 1.03; Prothrombin Time 10.9 sec (9.0-11.6)
[2024-02-01 15:55] LABS: Alanine Aminotransferase 79 U/L (14-59); Albumin Globulin Ratio 1.1; Albumin Level 4.1 g/dL (3.4-5.0); Alkaline Phosphatase 104 U/L (46-116); Aspartate Amino Transferase 59 U/L (15-37); BUN Creatinine Ratio 14.4; Bilirubin Total 0.8 mg/dL (0.2-1.0); Calcium 9.8 mg/dL (8.5-10.1); Chloride 100 mmol/L (98-107); Estimated GFR (African America >60 (>=60); Estimated GFR (Non-African Ame >60 (>=60); Globulin 3.6 g/dL; Glucose 89 mg/dL (74-106); Sodium 137 mmol/L (136-145); Total Protein 7.7 g/dL (6.4-8.2)
== END 2024-02-01 17:44 | disposition home or self-care (01) ==
PROVIDERS: Physician Assistant; Emergency Provider Emergency Medicine; PCP Nurse Practitioner
DX: I65.21 Occlusion and stenosis of right carotid artery (principal); E04.1 Nontoxic single thyroid nodule
CPT/HCPCS: 36415; 70450; 70496; 70498; 80053; 84484; 85025; 85610; 93005; 96374; 96375; 99285; J1920; J2060; Q9967

== ENCOUNTER 2024-02-08 08:54 | Outpatient (OUT) | payer BC, SELFPAY ==
--- NOTE | 2024-02-08 09:00 | CA_ITS ---
Patient Name: CARYN VALERO MR#: [id number] : 1970 Exam Date: 02/08/2024 Ordering Doctor: QUINTEN Ridley CNP ECHOCARDIOGRAM REPORT PROCEDURE: CA ECHO DOPPLER COMPLETE INDICATIONS: Palpitations, dyspnea, hypertension COMPARISON: None. DESCRIPTION: COMPLETE ECHOCARDIOGRAM Real-time transthoracic echocardiography with 2D, M-mode, spectral and color flow Doppler performed. QUALITY: Technical quality was good. LEFT VENTRICLE: Normal chamber size. Normal left ventricular wall thickness. Systolic function is at the lower limits of normal. LV EF: Low normal left ventricular ejection fraction, (50%). DIASTOLIC: Normal diastolic function. ATRIAL SEPTUM: LEFT ATRIUM: Normal chamber size. RIGHT ATRIUM: Normal chamber size. RIGHT VENTRICLE: Normal chamber size. Normal right ventricular systolic function. TRICUSPID VALVE: Normal mobility and thickness. No stenosis with trivial regurgitation. MITRAL VALVE: Normal mobility and thickness. No evidence of mitral valve stenosis. There is no mitral annular calcification. No mitral regurgitation. AORTIC VALVE: Normal trileaflet appearance. No visible sclerosis. Normal leaflet mobility. No evidence of aortic valve stenosis. No aortic regurgitation. AORTIC ROOT: Normal diameter and appearance. Ascending aorta is normal in size. PULMONIC VALVE: Normal thickness and mobility. No stenosis. No regurgitation. PERICARDIUM: No evidence of pericardial effusion. IVC: Collapses with inspirations. IVC is normal in size. PLEURA: CONCLUSION: 1. Normal left ventricular size. Left ventricular systolic function is at the lower limits of normal. LVEF is estimated at 50%. 2. Normal right ventricular size and systolic function. 3. Normal diastolic function. 4. No significant valvular dysfunction. 5. No pericardial effusion. Adult Echocardiography Procedure Report Left Ventricle LVEDD (3.7 - 5.6 cm): 3.78 cm LVESD (2.2 - 4.0 cm): 2.58 cm LVIVS thickness (0.6 - 1.2 cm): 0.85 cm LVPW thickness (0.5 - 1.0 cm): 0.87 cm e': 0.09 m/s E - e': 6.95 LVOT Max Gradient: 2.13 mm[Hg] LVOT Area (cm2): 0.73 m/s Peak Velocity (LVOT): 0.73 m/s Mean Velocity (LVOT): 0.44 m/s LVOT Diameter 1.81 cm Left Atrium LA Volume Index (2D A2C): 16.15 ml/m2 Left Atrium Systolic Dimension: 2.74 cm Mitral Valve MV E to A Ratio: 1.02 Mitral Valve A-Wave Peak Velocity: 0.61 m/s Mitral Valve E-Wave Peak Velocity: 0.63 m/s Right Ventricle Aorta AO Root Diam: 2.98 cm Ascending Ao Diam: 2.47 cm Aortic Valve AoV Area (Peak [place]): 1.73 cm2, 1.73 cm2 AoV Area (VTI): 1.68 cm2, 1.68 cm2 Peak Velocity(Antegrade Flow): 1.09 m/s Peak Gradient(Antegrade Flow): 4.76 mm[Hg] Mean Velocity(Antegrade Flow): 0.74 m/s Mean Gradient(Antegrade Flow): 2.51 mm[Hg] Velocity Time Integral: 21.68 cm Tricuspid Valve Pulmonic Valve Mean Gradient: 1.51 mm[Hg] Mean Velocity: 0.58 m/s Peak Velocity: 0.83 m/s, 0.85 m/s Peak Gradient: 2.87 mm[Hg], 2.77 mm[Hg] Right Atrium Right Atrium Systolic Pressure: 18.98 ml, 18.98 ml Dictated by: Robetr Mckay M.D. on 02/08/2024 at 16:12 Approved by: Robert Mckay M.D. on 02/08/2024 at 16:15
== END 2024-02-08 08:55 | disposition home or self-care (01) ==
LOC: CARD 08:55
PROVIDERS: PCP Nurse Practitioner; Visit Provider Nurse Practitioner
DX: R00.2 Palpitations (principal); I10 Essential (primary) hypertension; I73.9 Peripheral vascular disease, unspecified; I99.9 Unspecified disorder of circulatory system; R06.09 Other forms of dyspnea
CPT/HCPCS: 93246; 93306